=== PATIENT | male | born 1940 | race Caucasian/White ===

== ENCOUNTER 2017-11-29 20:17 | Inpatient (IN) | payer OTHER ==
[~2017-11-29] VITALS: Ht 182.9 cm; Wt 96.0 kg
[~2017-11-29 20:17] MED LIST: ACET-1256 PO; ALLO100T PO; ASCO500T16 PO; ASPECOTC PO; ATOR-22 PO; CARV3.122 PO; CO Q 10 PO; DIPH1TAB87 PO; FINA5TAB PO; GLUC1500 PO; LEVO150T PO; LOSA1TAB PO; MELATAB2 PO; METO25TA3 PO; MULT-506 PO; NTRGSL/4 UT; OMEG10007 PO; PRLSR20 PO; RIBO1TAB4 PO; TAMS0.4C38 PO; TRAZ50TA35 PO; VITA400C49 PO; VITAMIN D3 PO
[2017-11-29] MEDS ORDERED: SODIUM CHLORIDE 0.9% 1000ML 1,000 ML IV STA (20:50)
[2017-11-29] MEDS ORDERED: ONDANSETRON INJ 2 MG/ML 2 ML VIAL IV STA (20:50)
[2017-11-29] MEDS ORDERED: MoRPHine SULFATE 4 MG/ML 1 ML CARP\\VIAL IV PRN (21:00)
[2017-11-29 21:28] LABS: BASO % 0.5 %; BASO ABS # 0.05 K/uL (0-0.2); EOS % 1.1 %; EOS ABS # 0.12 K/uL (0-0.5); HEMATOCRIT 38.1 % (42-52); IG# 0.04 K/uL (0.00-0.02); LYMPH % 12.5 %; LYMPH ABS # 1.36 K/uL (1.2-3.4); MEAN CELL VOLUME 100.8 fL (80-100); MEAN CORPUSCULAR HEMOGLOBIN 34.4 pg (25-34); MEAN CORPUSCULAR HGB CONC 34.1 g/dl (32-36); MEAN PLATELET VOLUME 11.5 fL (7.4-10.4); MONO % 8.7 %; MONO ABS # 0.94 K/uL (0.11-0.59); NEUT % 76.8 %; NEUT ABS # 8.34 K/uL (1.4-6.5); PLATELET COUNT 253 K/uL (130-400); RED CELL DISTRIBUTION WIDTH CV 13.6 % (11.5-14.5); RED CELL DISTRIBUTION WIDTH SD 49.8 fL (36.4-46.3); WHITE BLOOD COUNT 10.85 K/uL (4.8-10.8)
[2017-11-29 21:57] LABS: ALBUMIN 3.1 gm/dl (3.4-5.0); ALKALINE PHOSPHATASE 59 U/L (45-117); ALT/SGPT 24 U/L (12-78); AST/SGOT 23 U/L (15-37); BLOOD UREA NITROGEN 22 mg/dl (7-18); CALCIUM 9.5 mg/dl (8.5-10.1); CARBON DIOXIDE 25 mmol/L (21-32); CREATININE 1.31 mg/dl (0.60-1.40); GLUCOSE 98 mg/dl (70-99); LIPASE 226 U/L (73-393); POTASSIUM 4.2 mmol/L (3.5-5.1); SODIUM 132 mmol/L (136-145); TOTAL PROTEIN 8.3 gm/dl (6.4-8.2)
--- NOTE | 2017-11-29 22:16 | DIAGNOSTIC IMAGING REPORT ---
CT OF THE ABDOMEN AND PELVIS WITHOUT CONTRAST, STONE PROTOCOL CLINICAL HISTORY: Severe abdominal pain. Back pain. Fever. Possible urinary tract infection. COMPARISON STUDY: CT of the abdomen and pelvis August 09, 2012. TECHNIQUE: Helical axial images of the abdomen and pelvis were obtained without IV or oral contrast according to renal stone protocol. A dose lowering technique was utilized adhering to the principles of ALARA. FINDINGS: The heart is moderately enlarged. Visualized portions of the lower chest demonstrate a large hiatal hernia which contains the majority of the stomach as well as a portion of the pancreas. A few right renal calculi measure up to 5 mm. A few left renal calculi are noted which measure up to 3 mm. Calcification within the upper pole of the left kidney is likely within a cystic lesion. There is mild bilateral hydroureter without hydronephrosis. No ureteral calculi are identified. Bladder is moderately distended. Calcifications along the anterior aspect of the bladder are unchanged. A suspected small bladder diverticulum is noted. There are multiple bilateral renal lesions which measure water attenuation. These favor cysts. A 3.6 cm lesion within the upper pole of the left kidney is indeterminate. This contains coarse peripheral calcifications. These lesions are suboptimally assessed on this unenhanced examination. A gallstone is noted within the gallbladder without evidence for acute cholecystitis by CT. Evaluation of the abdomen and pelvis is suboptimal on this unenhanced exam. Unenhanced images of the liver, spleen and adrenal glands are unremarkable. A moderate amount of stool is noted within the colon. There is no evidence for a bowel obstruction. No pneumatosis, free air or portal venous gas is present. The appendix is not visualized but there is no right lower quadrant inflammation. There is no lymphadenopathy. Fat-containing left inguinal hernia is noted. 3.6 cm infrarenal abdominal aortic aneurysm is noted without evidence for rupture. The bilateral common iliac arteries are mildly dilated. Multilevel degenerative changes within the lumbar spine are noted. There is no acute fracture. There is marked disc space narrowing at the L4-L5 level. Note is made of mild paravertebral edema at the L3-L4 and L4-L5 levels. IMPRESSION: 1. Bilateral nephrolithiasis. No ureteral calculi. Mild bilateral hydroureter which is likely related to moderate bladder distention. 2. Mild prevertebral infiltration at the L3-L4 and L4-L5 levels. No fracture identified. This finding is nonspecific. Differential considerations include an infectious process or acute degenerative process. An MRI of the lumbar spine could be obtained if clinical suspicion for an infectious process. 3. Moderate amount of stool within the colon. No evidence for a bowel obstruction. 4. 3.6 cm infrarenal abdominal aortic aneurysm. No rupture. 5. Large hiatal hernia. 6. Cholelithiasis. No evidence for acute cholecystitis. 7. 3.7 cm hypodense left renal lesion which contains coarse peripheral calcifications. Although indeterminate, this is unchanged since CT of August 07, 2012 and is probably benign Electronically signed by: Ivan Valladares M.D. 11/29/2017 10:15 PM Dictated Date/Time: 11/29/2017 9:55 PM
--- NOTE | 2017-11-29 23:20 | EMERGENCY ROOM VISIT NOTE ---
History Report prepared by Irene: Brian Martinez Under the Supervision of: Dr. Jose C Hardin D.O. First contact with patient: 20:28 Chief Complaint: URINARY SYMPTOMS Stated Complaint: BACK PAIN,POSSIBLE UTI,FEVER History of Present Illness The patient is a 77 year old male who presents to the Emergency Room with complaints of worsening low back pain beginning on November 20. The patient notes that the pain is shooting into his leg, and the pain is worsened greatly with sitting up. The patient's reports that at 18:00 today, she thought the patient felt hot and was found to have a subjective fever of 101, for which the patient did not receive any medications. They were instructed by the patient 's urologist to report to the ER. He also states that he was prescribed Tramadol yesterday by Dr. Canseco. He notes that the medication is not helping, and his pain is only worsening. He states that the last Tramadol he took was today at 17:00. The patient also reports that he feels the need to urinate, noting that he does self-catheterization due to "not having muscles" in his bladder. He notes that he has been taking gabapentin for the past couple of days , but is waning off of it. The patient reports that he received an MRI of his lower back yesterday that showed degenerative disc problems. He notes that he has not fallen recently. The following are findings from the patient's MRI of the lumbar spine acquired yesterday: L4-5: Diffuse disc bulging, bilateral facet arthropathy/hypertrophy, and ligamentum flavum thickening are causing moderate left and mild to moderate right neural foraminal narrowing and minimal spinal canal stenosis. Source of History: patient Onset: November 20 Position: back (lower), leg Timing: worsening Modifying Factors (Worsening): other (sitting up) Associated Symptoms: + fevers, + urinary symptoms (feels the need to urinate ) Review of Systems See HPI for pertinent positives & negatives. A total of 10 systems reviewed and were otherwise negative. Past Medical & Surgical Medical Problems: (1) coronary artery disease s/p CABG (2) esophagectomy s/p cancer Family History Diabetes mellitus Social History Smoking Status: Never Smoker Drug Use: none Marital Status: Housing Status: lives with family Occupation Status: retired Current/Historical Medications Scheduled Allopurinol (Zyloprim), 100 MG PO BID Ascorbic Acid (Ascorbic Acid), 500 MG PO BID Aspirin (Aspirin), 325 MG PO QAM Atorvastatin (Lipitor), 20 MG PO QAM Carvedilol (Coreg), 3.125 MG PO BID Cholecalciferol (Vitamin D3), 2 TABS PO DAILY Ciprofloxacin Tab (Cipro), 500 MG PO BID Coenzyme Q10 (Ubidecarenone) (Co Q10), 60 MG PO DAILY Finasteride (Proscar), 5 MG PO QAM Fish Oil (Kimper-3), 1 CAP PO BID Ugibtacotoc-Jxggptgrhwk-Cxy C- (Glucosamine Chondroitin 1), 2 CAPSULE PO QAM Levothyroxine Sodium (Levothyroxine Sodium), 175 MCG PO DAILY Losartan Potassium (Cozaar), 25 MG PO QAM Melatonin (Melatonin Maximum Strengt), 1 TAB PO HS Metoprolol Succ (Toprol Xl) (Toprol-Xl), 25 MG PO QAM Multivitamin (Multivitamin), 1 TAB PO QAM Omeprazole (Prilosec), 40 MG PO QAM Riboflavin (Riboflavin), 1 CAP PO QAM Tamsulosin Hcl (Flomax), 0.4 MG PO QAM Trazodone Hcl (Trazodone), 50 MG PO HS Vitamin E (Vitamin E), 1 CAP PO UD Scheduled PRN Acetaminophen (Tylenol), 1,000 MG PO Q8 PRN for Pain Baclofen (Lioresal), 10 MG PO BID PRN for muscle spasms Diphenhydramine Hcl (Benadryl Allergy), 2 TABS PO UD PRN for Itching Nitroglycerin (Nitrostat), 0.4 MG UT PRN PRN for Chest Pain Allergies Uncoded Allergies: NKDA (Allergy, Unknown, N/A, 10/25/17) Physical Exam Vital Signs Date Time Temp Pulse Resp B/P (MAP) Pulse Ox O2 Delivery O2 Flow Rate FiO2 11/29/17 23:41 79 20 130/62 92 Room Air 11/29/17 22:21 73 20 138/53 94 Room Air 11/29/17 20:19 36.7 88 18 142/69 100 Room Air Physical Exam CONSTITUTIONAL/VITAL SIGNS: Reviewed / noted above. GENERAL: Non-toxic in appearance. INTEGUMENTARY: Warm, dry, and [place]. HEAD: Normocephalic. EYES: without scleral icterus or trauma. ENT/OROPHARYNX: clear and moist. LYMPHADENOPATHY/NECK: Is supple without lymphadenopathy or meningismus. RESPIRATORY: Lungs clear and equal. CARDIOVASCULAR: Regular rate and rhythm. GI/ABDOMEN: Soft and nontender. No organomegaly or pulsatile mass. No rebound or guarding. Normal bowel sounds. EXTREMITIES: Warm and well perfused. BACK: No CVA tenderness. Pain with attempts to sit up. NEUROLOGICAL: Intact without focal deficits. PSYCHIATRIC: normal affect. MUSCULOSKELETAL: Normally developed with good muscle tone. Medical Decision & Procedures ER Provider Diagnostic Interpretation: Radiology results as stated below per my review and radiologist interpretation: CT OF THE ABDOMEN AND PELVIS WITHOUT CONTRAST, STONE PROTOCOL CLINICAL HISTORY: Severe abdominal pain. Back pain. Fever. Possible urinary tract infection. COMPARISON STUDY: CT of the abdomen and pelvis August 09, 2012. TECHNIQUE: Helical axial images of the abdomen and pelvis were obtained without IV or oral contrast according to renal stone protocol. A dose lowering technique was utilized adhering to the principles of ALARA. FINDINGS: The heart is moderately enlarged. Visualized portions of the lower chest demonstrate a large hiatal hernia which contains the majority of the stomach as well as a portion of the pancreas. A few right renal calculi measure up to 5 mm. A few left renal calculi are noted which measure up to 3 mm. Calcification within the upper pole of the left kidney is likely within a cystic lesion. There is mild bilateral hydroureter without hydronephrosis. No ureteral calculi are identified. Bladder is moderately distended. Calcifications along the anterior aspect of the bladder are unchanged. A suspected small bladder diverticulum is noted. There are multiple bilateral renal lesions which measure water attenuation. These favor cysts. A 3.6 cm lesion within the upper pole of the left kidney is indeterminate. This contains coarse peripheral calcifications. These lesions are suboptimally assessed on this unenhanced examination. A gallstone is noted within the gallbladder without evidence for acute cholecystitis by CT. Evaluation of the abdomen and pelvis is suboptimal on this unenhanced exam. Unenhanced images of the liver, spleen and adrenal glands are unremarkable. A moderate amount of stool is noted within the colon. There is no evidence for a bowel obstruction. No pneumatosis, free air or portal venous gas is present. The appendix is not visualized but there is no right lower quadrant inflammation. There is no lymphadenopathy. Fat-containing left inguinal hernia is noted. 3.6 cm infrarenal abdominal aortic aneurysm is noted without evidence for rupture. The bilateral common iliac arteries are mildly dilated. Multilevel degenerative changes within the lumbar spine are noted. There is no acute fracture. There is marked disc space narrowing at the L4-L5 level. Note is made of mild paravertebral edema at the L3-L4 and L4-L5 levels. IMPRESSION: 1. Bilateral nephrolithiasis. No ureteral calculi. Mild bilateral hydroureter which is likely related to moderate bladder distention. 2. Mild prevertebral infiltration at the L3-L4 and L4-L5 levels. No fracture identified. This finding is nonspecific. Differential considerations include an infectious process or acute degenerative process. An MRI of the lumbar spine could be obtained if clinical suspicion for an infectious process. 3. Moderate amount of stool within the colon. No evidence for a bowel obstruction. 4. 3.6 cm infrarenal abdominal aortic aneurysm. No rupture. 5. Large hiatal hernia. 6. Cholelithiasis. No evidence for acute cholecystitis. 7. 3.7 cm hypodense left renal lesion which contains coarse peripheral calcifications. Although indeterminate, this is unchanged since CT of August 07, 2012 and is probably benign Electronically signed by: Ivan Valladares M.D. 11/29/2017 10:15 PM Dictated Date/Time: 11/29/2017 9:55 PM Laboratory Results 11/29/17 21:10 Red Blood Count 3.78, Mean Corpuscular Volume 100.8, Mean Corpuscular Hemoglobin 34.4, Mean Corpuscular Hemoglobin Concent 34.1, Mean Platelet Volume 11.5, Neutrophils (%) (Auto) 76.8, Lymphocytes (%) (Auto) 12.5, Monocytes (%) ( Auto) 8.7, Eosinophils (%) (Auto) 1.1, Basophils (%) (Auto) 0.5, Neutrophils # ( Auto) 8.34, Lymphocytes # (Auto) 1.36, Monocytes # (Auto) 0.94, Eosinophils # ( Auto) 0.12, Basophils # (Auto) 0.05 11/29/17 21:10 Test 11/29/17 21:10 11/29/17 22:20 White Blood Count 10.85 K/uL (4.8-10.8) Red Blood Count 3.78 M/uL (4.7-6.1) Hemoglobin 13.0 g/dL (14.0-18.0) Hematocrit 38.1 % (42-52) Mean Corpuscular Volume 100.8 fL (80-100) Mean Corpuscular Hemoglobin 34.4 pg (25-34) Mean Corpuscular Hemoglobin Concent 34.1 g/dl (32-36) Platelet Count 253 K/uL (130-400) Mean Platelet Volume 11.5 fL (7.4-10.4) Neutrophils (%) (Auto) 76.8 % Lymphocytes (%) (Auto) 12.5 % Monocytes (%) (Auto) 8.7 % Eosinophils (%) (Auto) 1.1 % Basophils (%) (Auto) 0.5 % Neutrophils # (Auto) 8.34 K/uL (1.4-6.5) Lymphocytes # (Auto) 1.36 K/uL (1.2-3.4) Monocytes # (Auto) 0.94 K/uL (0.11-0.59) Eosinophils # (Auto) 0.12 K/uL (0-0.5) Basophils # (Auto) 0.05 K/uL (0-0.2) RDW Standard Deviation 49.8 fL (36.4-46.3) RDW Coefficient of Variation 13.6 % (11.5-14.5) Immature Granulocyte % (Auto) 0.4 % Immature Granulocyte # (Auto) 0.04 K/uL (0.00-0.02) Anion Gap 10.0 mmol/L (3-11) Estimated GFR () 60.9 Estimated GFR (Non- 52.5 BUN/Creatinine Ratio 16.4 (10-20) Calcium Level 9.5 mg/dl (8.5-10.1) Total Bilirubin 0.7 mg/dl (0.2-1) Direct Bilirubin 0.3 mg/dl (0-0.2) Aspartate Amino Transf (AST/SGOT) 23 U/L (15-37) Alanine Aminotransferase (ALT/SGPT) 24 U/L (12-78) Alkaline Phosphatase 59 U/L (45-117) Total Protein 8.3 gm/dl (6.4-8.2) Albumin 3.1 gm/dl (3.4-5.0) Lipase 226 U/L (73-393) Urine Color DK YELLOW Urine Appearance CLEAR (CLEAR) Urine pH 5.5 (4.5-7.5) Urine Specific [place] 1.013 (1.000-1.030) Urine Protein 1+ (NEG) Urine Glucose (UA) NEG (NEG) Urine Ketones NEG (NEG) Urine Occult Blood NEG (NEG) Urine Nitrite NEG (NEG) Urine Bilirubin NEG (NEG) Urine Urobilinogen NEG (NEG) Urine Leukocyte Esterase TRACE (NEG) Urine WBC (Auto) 5-10 /hpf (0-5) Urine RBC (Auto) 0-4 /hpf (0-4) Urine Hyaline Casts (Auto) 0 /lpf (0-5) Urine Epithelial Cells (Auto) 0-5 /lpf (0-5) Urine Bacteria (Auto) NEG (NEG) Laboratory results as stated above per my review. Medications Administered Medications (Trade) Dose Ordered Sig/Fidel Route Start Time Stop Time Status Last Admin Dose Admin Sodium Chloride 1,000 ml @ 999 mls/hr Q1H1M STAT IV 11/29/17 20:50 11/29/17 21:50 DC 11/29/17 21:30 999 MLS/HR Ondansetron HCl (Zofran Inj) 4 mg NOW STAT IV 11/29/17 20:50 11/29/17 20:56 DC 11/29/17 21:33 4 MG Morphine Sulfate (MoRPHine SULFATE INJ) 4 mg Q15M PRN IV 11/29/17 21:00 12/13/17 20:59 11/29/17 21:33 4 MG ED Course 2044: Previous medical records were reviewed. The patient was evaluated in room C6. A complete history and physical examination was performed. 0: Ordered Zofran 4 mg IV, Sodium Chloride 1000 ml @ 999 mls/hr IV 2100: Ordered Morphine Sulfate 4 mg IV 2315: On reevaluation, the patient is resting. I discussed the results and findings with the patient. He verbalized agreement of the treatment plan. He is ready for discharge. 2345: The patient is experiencing a lot of pain, and he and his are uncomfortable with leaving at this time. 0013: I consulted Dr. Erickson Huerta Hospitalist. He will reevaluate the patient for hospitalization. Medical Decision Differential considered: pancreatitis, hepatitis, or acute cholecystitis, AAA, UTI, pyelonephritis, kidney stones, appendicitis, diverticulitis, shingles, bowel obstruction mesenteric ischemia, intussusception,hernia, testicular torsion. This is a 77-year-old male who presents to the ED with a chief complaint of urinary symptoms and back pain. The patient was seen by the PCP yesterday and was started on Ultram for his back pain. He had an MRI of his back that revealed some mild herniations and degenerative changes. There is no significant stenosis or herniations. The patient is also on gabapentin but they are weaning him off of this. Further details noted above. The patient does self-catheterization at home because he has some issues with bladder muscles. In the reportedly had a fever today of 101, per his . His vital signs here are normal. He is afebrile. His exam revealed some increased discomfort with attempting to sit up but otherwise no significant abnormalities on exam. He is normal reflexes in the lower extremities. His CBC is unremarkable as is his complete metabolic panel. CT scan of the abdomen pelvis reveals mild hydroureter felt to be related to some moderate bladder distention. A bladder scan revealed almost 700 cc of urine in the bladder. Urine did not show infection today. Additional findings on the CT scan revealed some infiltration in the anterior vertebral region but I spoke with the radiologist, Dr. Valladares, who did not feel an MRI was needed since the patient had one yesterday. I did speak to the patient about the results of the test. He was advised to call Dr. Canseco tomorrow with regards to his additional symptoms. He was treated with IV morphine, IV fluids and IV Zofran. This did help with the symptoms and he also had his bladder drained via catheterization. The patient was felt to be stable for discharge, however as he was attempting leave, the patient was having too much pain and did not feel comfortable leaving. The also felt uncomfortable with the patient going with his much pain as he was having. [facility] will see the patient for additional evaluation of pain management. Medication Reconcilliation Current Medication List: was personally reviewed by me Blood Pressure Screening Patient's blood pressure: Elevated blood pressure Blood pressure disposition: Elevated BP felt to be situational Consults Time Called: [id number] Consulting Physician: Dr. Erickson Trent Returned Call: [id number] Oconer [facility]. He will reevaluate the patient for hospitalization. Impression Primary Impression: Bladder distention Additional Impression: Back pain Scribe Attestation The scribe's documentation has been prepared under my direction and personally reviewed by me in its entirety. I confirm that the note above accurately reflects all work, treatment, procedures, and medical decision making performed by me. Departure Information Dispostion Being Evaluated By Hospitalist Referrals Yanick Canseco D.O. (PCP) Patient Instructions My [facility] Additional Instructions Talk to your doctor tomorrow about her symptoms. Let him know that you were here tonight so he can review the results of your test. Continue the Ultram prescribed yesterday. Follow-up with your doctor for further care and evaluation in 1-3 days. Return to the emergency department for worsening or new symptoms or any concerns. You have been examined and treated today on an emergency basis only. This is not a substitute for, or an effort to provide, complete comprehensive medical care. It is impossible to recognize and treat all injuries or illnesses in a single emergency department visit. It is therefore important that you follow up closely with your doctor. Call as soon as possible for an appointment. Problem Qualifiers
[2017-11-30] MEDS ORDERED: CHOL20007 PO (00:17)
[2017-11-30] MEDS ORDERED: COEN1CAP PO (00:19)
[2017-11-30] MEDS ORDERED: LEVO175T3 PO (00:24)
[2017-11-30] MEDS ORDERED: BACL10TA PO (00:26)
[2017-11-30] MEDS ORDERED: CIPR1TAB11 PO (00:27)
[2017-11-30] MEDS ORDERED: KETOROLAC TROMETHAMINE 30 MG/ML VIAL IV STA (01:18)
[2017-11-30] MEDS ORDERED: PIPERACILLIN/TAZOBACTAM 4.5 GM/100ML D5W IV STA (01:20)
[2017-11-30] MEDS ORDERED: KETOROLAC TROMETHAMINE 15 MG/ML VIAL ONE (01:28)
[2017-11-30] MEDS ORDERED: PIPERACILLIN/TAZOBACTAM 4.5 GM/100ML D5W ONE (01:29)
[2017-11-30] MEDS ORDERED: MoRPHine SULFATE 2 MG/ML CARP IV PRN (01:45)
[2017-11-30] MEDS ORDERED: ACETAMINOPHEN 325 MG TAB PO PRN (01:45)
[2017-11-30 02:00] VITALS: BP 112/53; PULSE 63; TEMP 37.1; O2SAT 93; Ht 182.9 cm; Wt 96.0 kg
[2017-11-30] MEDS ORDERED: NITROGLYCERIN 0.4 MG SL PER TAB CHARGE UT PRN (02:00)
[2017-11-30] MEDS ORDERED: LIDODERM (LIDOCAINE) PATCH 5% TD ONE (03:00)
[2017-11-30] MEDS ORDERED: DOCUSATE SODIUM 100 MG CAP PO ONE (03:00)
[2017-11-30] MEDS ORDERED: LORATADINE 10 MG TAB PO ONE (03:45)
[2017-11-30] MEDS: TRAMADOL HCL 50 MG TAB PO PRN ×2 (04:15→19:14)
--- NOTE | 2017-11-30 04:56 | HISTORY & PHYSICAL EXAMINATION ---
DATE OF ADMISSION: 11/30/2017 CHIEF COMPLAINT: Back pain. HISTORY OF PRESENT ILLNESS: History obtained by the patient, , and records. Medical history is significant for CAD status post CABG, PVD, hypertension, hypothyroidism, past tobacco abuse, esophageal cancer status post surgery, PVD, history of BPH, urinary retention (intermittent self straight catheterization at home), chronic hyponatremia. A week history of achy low back pain radiating to the left lower extremity, shooting. No recollection of recent trauma. Patient saw his PCP few days ago. Left leg weakness noted on exam. As per records, tramadol started. MRI spine without contrast ordered, no acute abnormalities identified. Multilevel, multifactorial degenerative changes, mildly progressed from 01/2009. Neural foraminal narrowing, significant moderate left L4-L5 foraminal narrowing; heterogeneous appearance of bone marrow signal with edematous changes in the endplates at several levels, likely related to degenerative disc disease, small osseous metastatic lesions cannot be excluded;infrarenal aorta dilatation noted. Worsening back pain pain noted. Low-grade fever at home, T 101. No cough, no chest pain no shortness of breath. No bladder discomfort. Intractable back pain at the ER. MEDICAL HISTORY: As above. Sees [facility] for BPH with urinary retention. Last visit was 03/2017, Finasteride prescription, return after 6 months for follow-up as per note. If PVR does not improve, consider cystoscopy. Patient doing intermittent straight catheterization. Urine cultures 10/2017 showed enterococcus. ? Cipro prescribed. SURGERIES: urologic procedure, CABG, carpal tunnel surgery, hernia repair, esophagectomy, TURP. HOME MEDICATIONS: Include glucosamine, Synthroid, Cozaar, melatonin, Toprol, multivitamins, Nitrostat, Prilosec , Flomax, trazodone, vitamin E, vitamin D3, Coenzyme Q, Benadryl, Proscar, fish oil, Zyloprim, ascorbic acid, aspirin once daily, Lipitor, Tylenol, Coreg. ALLERGIES: No known drug allergies. FAMILY HISTORY: Hypertension. PERSONAL AND SOCIAL HISTORY: Past tobacco abuse. No chronic intake of alcoholic beverages. 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 REVIEW OF SYSTEMS: As per HPI, all 10 systems reviewed. All other ROS negative. PHYSICAL EXAMINATION: VITAL SIGNS: Blood pressure noted to be 138/50, pulse rate 70, RR 20, temperature 37, sats 94 on room air. GENERAL: Noted to be uncomfortable, no respiratory distress. SKIN: Pallor, warm. HEENT: Partial alopecia, pale palpebral conjunctivae. No ptosis. Dry mucosa. NECK: Short, supple. CHEST: Decreased effort. No tenderness. HEART: Regular rate and rhythm, no murmur. ABDOMEN: Abdominal distention noted. Healed scars, nontender. RECTAL: Intact sphincter, yellow stool, heme negative. bottle blowing machine tender low back with positive straight leg raise on the left. NEUROLOGIC: Coherent. No gross focality except for back exam. LABORATORY DATA: Hemoglobin is 13, white cell count 10, platelets 253. Sodium noted to be 130, chloride 96, CO2 is 25, BUN 20, creatinine 1, glucose was noted to be 98. UA, trace wbc est positive. CT abdomen and pelvis showed bilateral nephrolithiasis, no calculi, mild bilateral hydroureter related to moderate bladder distention, mild prevertebral swelling at L3-L4 and L4-L5 levels infection versus acute degeneration, moderate amount of stool, 3.6 cm infrarenal abdominal aortic aneurysm without rupture, cholelithiasis, hypodense L renal lesion. ASSESSMENT: 1. Back pain multifactorial : sciatica (abnormal outpx MRI - "heterogeneous bone marrow signal") complicated urinary tract infection, no sepsis (history of benign prostatic hypertrophy with urinary retention intermittent straight cath at home, Enterococcus on recent outpatient urine CS 10/2017 ? sp Cipro rx) 2. Coronary artery disease, status post coronary artery bypass grafting. 3. hx PVD 4. Esophageal cancer sp postsurgery 5. hypertension, stable. 6. Acute onset anemia, no occult gastrointestinal bleed. 7. Past tobacco abuse . PLAN: GMF analgesia Lidoderm patch trial urine cultures, IV Zosyn. Orthopedic spine consult RE back pain, abnormal MRI (? benefit in doing contrast MRI) anemia workup. PT OT eval DVT prophylaxis, Lovenox subQ. Full code. MTDD
[2017-11-30] MEDS: LEVOTHYROXINE 175 MCG TAB PO SCH (05:56)
[2017-11-30] MEDS: PIPERACILL/TAZOBAC IV 3.375 GM in D5W 100ML IV SCH ×3 (05:56→21:35)
[2017-11-30 05:57] LABS: BASO % 0.4 %; BASO ABS # 0.05 K/uL (0-0.2); EOS % 0.9 %; HEMATOCRIT 35.1 % (42-52); HEMOGLOBIN 11.8 g/dL (14.0-18.0); IG# 0.05 K/uL (0.00-0.02); LYMPH % 10.8 %; LYMPH ABS # 1.27 K/uL (1.2-3.4); MEAN CELL VOLUME 100.9 fL (80-100); MEAN CORPUSCULAR HEMOGLOBIN 33.9 pg (25-34); MEAN CORPUSCULAR HGB CONC 33.6 g/dl (32-36); MEAN PLATELET VOLUME 11.5 fL (7.4-10.4); MONO % 10.8 %; MONO ABS # 1.26 K/uL (0.11-0.59); NEUT % 76.7 %; NEUT ABS # 8.99 K/uL (1.4-6.5); PLATELET COUNT 233 K/uL (130-400); RED CELL DISTRIBUTION WIDTH CV 13.7 % (11.5-14.5); RETIC COUNT % 1.1 % (0.5-2.0); WHITE BLOOD COUNT 11.72 K/uL (4.8-10.8)
[2017-11-30 06:29] LABS: CALCIUM 8.2 mg/dl (8.5-10.1); CREATININE 1.32 mg/dl (0.60-1.40); POTASSIUM 4.3 mmol/L (3.5-5.1)
[2017-11-30 06:38] LABS: INR 1.1 (0.9-1.1)
[2017-11-30 07:31] VITALS: BP 115/56; PULSE 56; TEMP 36.4; O2SAT 95
[2017-11-30] MEDS: KETOROLAC TROMETHAMINE 15 MG/ML VIAL IV. PRN ×2 (07:33→17:41)
[2017-11-30] MEDS ORDERED: PIPERACILL/TAZOBAC CONSULT ACTIVE PRN (08:00)
[2017-11-30] MEDS: CARVEDILOL 3.125 MG TAB PO SCH ×2 (08:00→20:19)
[2017-11-30] MEDS: LOSARTAN POTASSIUM 25 MG TAB PO SCH (08:58)
[2017-11-30] MEDS: ASPIRIN 81 MG ECTAB PO SCH (08:59)
[2017-11-30] MEDS: ATORVASTATIN 20 MG TAB PO SCH (08:59)
[2017-11-30] MEDS: FINASTERIDE 5 MG TAB PO SCH (08:59)
[2017-11-30] MEDS: MULTIVITAMIN TAB PO SCH (08:59)
[2017-11-30] MEDS: TAMSULOSIN HCL 0.4 MG CAP PO SCH (08:59)
[2017-11-30] MEDS: PANTOprazole SOD 40 MG TAB PO SCH (08:59)
[2017-11-30] MEDS ORDERED: OXYCODONE HCL IR 5 MG TAB (IMMEDIATE RELEASE) PO ONE (09:00)
[2017-11-30] MEDS: ALLOPURINOL 100 MG TAB PO SCH ×2 (09:00→20:20)
[2017-11-30] MEDS: METOPROLOL SUCC 25MG EXT REL TAB PO SCH (09:05)
--- NOTE | 2017-11-30 10:26 | Progress Note ---
Progress Note Date of Service Nov 30, 2017. Progress Note chart reviewed. recommend consult spine service
[2017-11-30] MEDS ORDERED: BACLOFEN 10 MG TAB PO ONE (11:50)
[2017-11-30] MEDS: ENOXAPARIN 40 MG/0.4 ML SYR SQ SCH (11:50)
--- NOTE | 2017-11-30 11:51 | Progress Note ---
Medicine Progress Note Date & Time of Visit: Nov 30, 2017 at 11:31. Subjective Pt was seen and examined Lying in bed and complaint severe of back pain Pt said that the pain med does not seem to help much He said that the pain is located in his left side of his lower back and shooting to his left leg He said that pain is worst if he tries to move or elevate his left leg Denies any chest pain, palpitation, dizziness and SOB Objective Last 8 Hrs Date Time Temp Pulse Resp B/P (MAP) Pulse Ox O2 Delivery O2 Flow Rate FiO2 11/30/17 10:53 Room Air 11/30/17 07:31 36.4 56 18 115/56 (75) 95 Room Air Physical Exam: General- No acute distress Head- atraumatic Eyes- PERRL, EOMI ENT- oropharynx clear Neck- supple, no JVD Lungs- No acute distress Heart- regular rhythm; no murmur, Abdomen- normal bowel sounds, soft Extremities- no calf tenderness Neuro- alert, oriented x 3; PERRL, EOMI Skin- warm & dry Laboratory Results: Last 24 Hours Test 11/29/17 21:10 11/29/17 22:20 11/30/17 05:23 White Blood Count 10.85 K/uL 11.72 K/uL Red Blood Count 3.78 M/uL 3.48 M/uL Hemoglobin 13.0 g/dL 11.8 g/dL Hematocrit 38.1 % 35.1 % Mean Corpuscular Volume 100.8 fL 100.9 fL Mean Corpuscular Hemoglobin 34.4 pg 33.9 pg Mean Corpuscular Hemoglobin Concent 34.1 g/dl 33.6 g/dl Platelet Count 253 K/uL 233 K/uL Mean Platelet Volume 11.5 fL 11.5 fL Neutrophils (%) (Auto) 76.8 % 76.7 % Lymphocytes (%) (Auto) 12.5 % 10.8 % Monocytes (%) (Auto) 8.7 % 10.8 % Eosinophils (%) (Auto) 1.1 % 0.9 % Basophils (%) (Auto) 0.5 % 0.4 % Neutrophils # (Auto) 8.34 K/uL 8.99 K/uL Lymphocytes # (Auto) 1.36 K/uL 1.27 K/uL Monocytes # (Auto) 0.94 K/uL 1.26 K/uL Eosinophils # (Auto) 0.12 K/uL 0.10 K/uL Basophils # (Auto) 0.05 K/uL 0.05 K/uL RDW Standard Deviation 49.8 fL 50.0 fL RDW Coefficient of Variation 13.6 % 13.7 % Immature Granulocyte % (Auto) 0.4 % 0.4 % Immature Granulocyte # (Auto) 0.04 K/uL 0.05 K/uL Prothrombin Time 11.6 SECONDS Prothromb Time International Ratio 1.1 Sodium Level 132 mmol/L 131 mmol/L Potassium Level 4.2 mmol/L 4.3 mmol/L Chloride Level 96 mmol/L 99 mmol/L Carbon Dioxide Level 25 mmol/L 25 mmol/L Anion Gap 10.0 mmol/L 7.0 mmol/L Blood Urea Nitrogen 22 mg/dl 22 mg/dl Creatinine 1.31 mg/dl 1.32 mg/dl Estimated GFR () 60.9 60.3 Estimated GFR (Non- 52.5 52.0 BUN/Creatinine Ratio 16.4 16.7 Random Glucose 98 mg/dl 95 mg/dl Calcium Level 9.5 mg/dl 8.2 mg/dl Magnesium Level 1.8 mg/dl Total Bilirubin 0.7 mg/dl Direct Bilirubin 0.3 mg/dl Aspartate Amino Transf (AST/SGOT) 23 U/L Alanine Aminotransferase (ALT/SGPT) 24 U/L Alkaline Phosphatase 59 U/L Total Protein 8.3 gm/dl Albumin 3.1 gm/dl Lipase 226 U/L Thyroid Stimulating Hormone (TSH) 1.950 uIu/ml Urine Color DK YELLOW Urine Appearance CLEAR Urine pH 5.5 Urine Specific [place] 1.013 Urine Protein 1+ Urine Glucose (UA) NEG Urine Ketones NEG Urine Occult Blood NEG Urine Nitrite NEG Urine Bilirubin NEG Urine Urobilinogen NEG Urine Leukocyte Esterase TRACE Urine WBC (Auto) 5-10 /hpf Urine RBC (Auto) 0-4 /hpf Urine Hyaline Casts (Auto) 0 /lpf Urine Epithelial Cells (Auto) 0-5 /lpf Urine Bacteria (Auto) NEG Absolute Reticulocyte Count 0.04 10^6/uL Percent Reticulocyte Count 1.1 % Est Creatinine Clear Calc Drug Dose 57.3 ml/min Iron Level 14 mcg/dl Total Iron Binding Capacity 181 mcg/dl Transferrin 141 mg/dl Transferrin % Saturation 7 % Ferritin 303.1 ng/ml Vitamin B12 Level 1157 pg/mL Folate 21.02 ng/mL Date/Time Source Procedure Growth Status 11/29/17 22:40 Urine , Clean Catch Urine Culture Pending Received Assessment & Plan Left Sided Lower Back Pain radiated to Left Lower Ext Might be related to sciatica? Outpt MRI showed on 12/02 no acute abnormalities identified. 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 No significant spinal canal stenosis at any level. Heterogeneous appearance of bone marrow signal with edematous changes in the endplates at several levels Received IV morphine and oxy with no relief sciatica Will increase oxycodone to 10mg Continue IV morphine Orthopedic consult PT/OT once pain alleviates Fall precaution MRI report 1. No acute abnormalities identified. 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 No significant spinal canal stenosis at any level. 2. Neural foraminal narrowing of different degree at several levels, most significant, moderate, in the left L4-5 foramen. 3. Heterogeneous appearance of bone marrow signal with edematous changes in the endplates at several levels is more likely related to degenerative disc disease. Please note that presence of small osseous metastatic lesions cannot be excluded based on this examination alone in this patient with known prior history of cancer. 4. Mild aneurysmal dilatation of the infrarenal aorta, which measures up to 3.4 cm in diameter (3.1 cm in 2008). Abnormal UA Afebrile Elevated WBC Urine cx pending Continue IV zosyn for now Hyponatremia Na 131 Received NS Monitor BMP BPH Continue flomax and proscar Stable CAD S/P coronary artery bypass grafting. Denies any chest pain Stable Esophageal cancer S/P postsurgery Stable Hypertension BP stable. Anemia Hbg dropped to 11 today No signs of active bleeding Monitor CBC DVT px Lovenox Code status Full code Current Inpatient Medications: Current Inpatient Medications Medications (Trade) Dose Ordered Sig/Fidel Route Start Time Stop Time Status Last Admin Dose Admin Lidocaine (Lidoderm Patch 5%) 1 patch QAM TD 12/01/17 08:00 12/31/17 08:59 Miscellaneous (Remove Lidoderm Patch) 1 ea DAILY@1999 N/A 11/30/17 15:00 12/30/17 14:59 Enoxaparin Sodium (Lovenox Inj) 40 mg Q24H SQ 11/30/17 08:00 12/30/17 07:59 Acetaminophen (Tylenol Tab) 650 mg Q4H PRN PO 11/30/17 01:45 12/30/17 01:44 Prochlorperazine Edisylate 5 mg/ Syringe 5 ml @ 5 mls/min Q6H PRN IV 11/30/17 01:45 12/30/17 01:44 Morphine Sulfate (MoRPHine SULFATE INJ) 2 mg Q4H PRN IV 11/30/17 01:45 12/14/17 01:44 11/30/17 02:50 2 MG Allopurinol (Zyloprim Tab) 100 mg BID PO 11/30/17 08:00 12/30/17 08:59 11/30/17 09:00 100 MG Aspirin (Ecotrin Tab) 162 mg QAM PO 11/30/17 08:00 12/30/17 08:59 11/30/17 08:59 162 MG Atorvastatin Calcium (Lipitor Tab) 20 mg QAM PO 11/30/17 08:00 12/30/17 08:59 11/30/17 08:59 20 MG Carvedilol (Coreg Tab) 3.125 mg BID PO 11/30/17 08:00 12/30/17 08:59 Finasteride (Proscar Tab) 5 mg QAM PO 11/30/17 08:00 12/30/17 08:59 11/30/17 08:59 5 MG Levothyroxine Sodium (Synthroid Tab) 175 mcg DAILYBB PO 11/30/17 06:30 12/30/17 06:29 11/30/17 05:56 175 MCG Losartan Potassium (coZAAR TAB) 25 mg QAM PO 11/30/17 08:00 12/30/17 08:59 11/30/17 08:58 25 MG Metoprolol Succinate (Toprol Xl Tab) 25 mg QAM PO 11/30/17 08:00 12/30/17 08:59 Multivitamins (Multivitamin Tab) 1 tab QAM PO 11/30/17 08:00 12/30/17 08:59 11/30/17 08:59 1 TAB Nitroglycerin (Nitrostat Tab) 0.4 mg PRN PRN UT 11/30/17 02:00 12/30/17 01:59 Tamsulosin HCl (Flomax Cap) 0.4 mg QAM PO 11/30/17 08:00 12/30/17 08:59 11/30/17 08:59 0.4 MG Trazodone HCl (Desyrel Tab) 50 mg HS PO 11/30/17 21:00 12/30/17 20:59 Pantoprazole Sodium (Protonix Tab) 40 mg QAM PO 11/30/17 08:00 12/30/17 08:59 11/30/17 08:59 40 MG Miscellaneous Information (Consult) 1 ea UD PRN N/A 11/30/17 08:00 12/30/17 07:59 Tramadol HCl (Ultram Tab) not relieved ... Q6H PRN PO 11/30/17 02:00 12/30/17 01:59 11/30/17 04:15 50 MG Docusate Sodium (coLACE CAP) 100 mg DAILY PO 12/01/17 08:00 12/31/17 07:59 Ketorolac Tromethamine (Toradol Inj) 15 mg Q6H PRN IV. 11/30/17 02:45 12/05/17 02:44 11/30/17 07:33 15 MG Piperacillin Sod/ Tazobactam Sod 3.375 gm/Dextrose 115 ml @ 28.75 mls/ hr Q8H IV 11/30/17 06:00 12/10/17 05:59 11/30/17 05:56 28.75 MLS/HR
[2017-11-30] MEDS ORDERED: ACETAMINOPHEN IV 1,000 MG in EMPTY BAG 0 ML IV ONE (13:00)
[2017-11-30] MEDS: DiphenhydrAMINE HCL 12.5MG/5 ML UDC PO PRN (13:16)
[2017-11-30] MEDS ORDERED: OXYCODONE HCL IR 5 MG TAB (IMMEDIATE RELEASE) PO PRN (14:00)
[2017-11-30 14:31] VITALS: BP 101/58; PULSE 69; TEMP 36.6; O2SAT 95
[2017-11-30] MEDS ORDERED: NURSING VERBAL MED ORDER ONE ×2 (15:15→19:00)
[2017-11-30] MEDS ORDERED: DiphenhydrAMINE HCL 12.5MG/5 ML UDC PO ONE (19:15)
[2017-11-30 20:05] VITALS: BP 108/56; PULSE 64
[2017-11-30] MEDS: BACLOFEN 10 MG TAB PO SCH (20:20)
[2017-11-30] MEDS: TRAZODONE HCL 50 MG TAB PO SCH (20:21)
[2017-11-30 23:05] VITALS: BP 106/54; PULSE 73; TEMP 36.9; O2SAT 94
[2017-12-01 05:42] LABS: BASO % 0.2 %; BASO ABS # 0.03 K/uL (0-0.2); EOS % 1.1 %; EOS ABS # 0.13 K/uL (0-0.5); HEMATOCRIT 34.5 % (42-52); HEMOGLOBIN 11.7 g/dL (14.0-18.0); IG# 0.04 K/uL (0.00-0.02); LYMPH ABS # 0.98 K/uL (1.2-3.4); MEAN CELL VOLUME 100.9 fL (80-100); MEAN CORPUSCULAR HEMOGLOBIN 34.2 pg (25-34); MEAN CORPUSCULAR HGB CONC 33.9 g/dl (32-36); MEAN PLATELET VOLUME 11.6 fL (7.4-10.4); MONO % 7.5 %; MONO ABS # 0.93 K/uL (0.11-0.59); NEUT % 82.9 %; NEUT ABS # 10.21 K/uL (1.4-6.5); PLATELET COUNT 237 K/uL (130-400); RED CELL DISTRIBUTION WIDTH CV 13.7 % (11.5-14.5); RED CELL DISTRIBUTION WIDTH SD 50.3 fL (36.4-46.3); WHITE BLOOD COUNT 12.32 K/uL (4.8-10.8)
[2017-12-01 06:06] LABS: CALCIUM 8.4 mg/dl (8.5-10.1); CREATININE 1.38 mg/dl (0.60-1.40); POTASSIUM 4.3 mmol/L (3.5-5.1)
[2017-12-01] MEDS: LEVOTHYROXINE 175 MCG TAB PO SCH (06:16)
[2017-12-01] MEDS: PIPERACILL/TAZOBAC IV 3.375 GM in D5W 100ML IV SCH ×2 (06:16→14:14)
[2017-12-01 07:05] VITALS: BP 91/49; PULSE 72; TEMP 37.3; O2SAT 93
[2017-12-01] MEDS: METOPROLOL SUCC 25MG EXT REL TAB PO SCH (07:39)
[2017-12-01] MEDS: BACLOFEN 10 MG TAB PO SCH (08:00)
[2017-12-01] MEDS: DOCUSATE SODIUM 100 MG CAP PO SCH (08:00)
[2017-12-01] MEDS: TAMSULOSIN HCL 0.4 MG CAP PO SCH (08:00)
[2017-12-01] MEDS: ALLOPURINOL 100 MG TAB PO SCH ×2 (08:00→21:04)
[2017-12-01] MEDS: ATORVASTATIN 20 MG TAB PO SCH (08:00)
[2017-12-01] MEDS: LIDODERM (LIDOCAINE) PATCH 5% TD SCH (08:00)
[2017-12-01] MEDS: LOSARTAN POTASSIUM 25 MG TAB PO SCH (08:00)
[2017-12-01] MEDS: FINASTERIDE 5 MG TAB PO SCH (08:00)
[2017-12-01] MEDS: CARVEDILOL 3.125 MG TAB PO SCH ×2 (08:00→21:04)
[2017-12-01] MEDS: ENOXAPARIN 40 MG/0.4 ML SYR SQ SCH (08:01)
[2017-12-01] MEDS: PANTOprazole SOD 40 MG TAB PO SCH (08:01)
[2017-12-01] MEDS: MULTIVITAMIN TAB PO SCH (08:01)
[2017-12-01] MEDS: ASPIRIN 81 MG ECTAB PO SCH (08:02)
[2017-12-01] MEDS: KETOROLAC TROMETHAMINE 15 MG/ML VIAL IV. PRN (08:09)
--- NOTE | 2017-12-01 10:13 | Pain Management Consultation ---
Pain Management Consultation Date of Consultation Dec 01, 2017. Reason for Consultation Low back and left leg radicular pain. Pain Location 1 - Distal lumbar spine pain 2 - Left posterior leg radicular pain up to left knee History Mr. Hubert Morales is a 77-year-old male admitted to [facility] with a complicated urinary tract infection and has complained of experiencing axial low back pain in the distal lumbar spine that radiates into the posterior aspect of the left proximal leg behind the knee. He reports the pain started insidiously without any known injury or any relation to activity on November 20 and it has increased in intensity since. Pain described as a sharp, shooting sensation that is associated with any movement of the lumbar spine including forward flexion or lateral rotation. Pain is relieved by assuming a constant, immobile semi-recombinant position. However, any movement such as attempting to sit up in bed or roll onto his side causes him to experience his typical pain. He rates the pain as 10/10 when severe and 1/10 when minimal such as when he is in supine, immobile position. He was initially seen by his PCP as an outpatient and underwent an MRI which reported multifactorial degenerative changes throughout the entire lumbar spine that have mildly progressed since 02/04 2009. It also demonstrates neural foraminal narrowing at multiple levels, most significant at left L4/L5 foramen. Additionally, a demonstrate heterogenous appearance of bone marrow agonal with edematous changes in the endplates at multiple levels and is presence of small osseous metastatic lesion that could not be excluded on this exam alone. An incidental finding of mild aneurysmal dilatation of the infrarenal aorta measuring 3.4 cm was also seen. Currently the patient has been sitting oral oxycodone with minimal efficacy for pain, especially with movement. He is also receiving baclofen, ketorolac and Lidoderm patch with minimal efficacy. He denies any neurological changes such as bowel or bladder incontinence, sensory or motor changes associated with this pain. While an inpatient, he has not been able to get out of his bed as result of the pain. He has a previous history of esophageal cancer and has undergone esophagectomy approximately 10 years ago. Past Medical/Surgical History (1) coronary artery disease s/p CABG (2) esophagectomy s/p cancer (3) Complicated urinary tract infection Family History Diabetes mellitus Social / Work History Marital Status: Occupation: retired Allergies Coded Allergies: Morphine (Verified Allergy, Mild, ITCHING, 11/30/17) ITCHING OF FACE AND HEAD Medications Current Inpatient Medications Medications (Trade) Dose Ordered Sig/Fidel Route Start Time Stop Time Status Last Admin Dose Admin Lidocaine (Lidoderm Patch 5%) 1 patch QAM TD 12/01/17 08:00 12/31/17 08:59 12/01/17 08:00 1 PATCH Miscellaneous (Remove Lidoderm Patch) 1 ea DAILY@1999 N/A 11/30/17 15:00 12/30/17 14:59 11/30/17 14:45 1 EA Enoxaparin Sodium (Lovenox Inj) 40 mg Q24H SQ 11/30/17 08:00 12/30/17 07:59 12/01/17 08:01 40 MG Acetaminophen (Tylenol Tab) 650 mg Q4H PRN PO 11/30/17 01:45 12/30/17 01:44 Prochlorperazine Edisylate 5 mg/ Syringe 5 ml @ 5 mls/min Q6H PRN IV 11/30/17 01:45 12/30/17 01:44 Allopurinol (Zyloprim Tab) 100 mg BID PO 11/30/17 08:00 12/30/17 08:59 12/01/17 08:00 100 MG Aspirin (Ecotrin Tab) 162 mg QAM PO 11/30/17 08:00 12/30/17 08:59 12/01/17 08:02 162 MG Atorvastatin Calcium (Lipitor Tab) 20 mg QAM PO 11/30/17 08:00 12/30/17 08:59 12/01/17 08:00 20 MG Carvedilol (Coreg Tab) 3.125 mg BID PO 11/30/17 08:00 12/30/17 08:59 11/30/17 20:19 3.125 MG Finasteride (Proscar Tab) 5 mg QAM PO 11/30/17 08:00 12/30/17 08:59 12/01/17 08:00 5 MG Levothyroxine Sodium (Synthroid Tab) 175 mcg DAILYBB PO 11/30/17 06:30 12/30/17 06:29 12/01/17 06:16 175 MCG Losartan Potassium (coZAAR TAB) 25 mg QAM PO 11/30/17 08:00 12/30/17 08:59 11/30/17 08:58 25 MG Metoprolol Succinate (Toprol Xl Tab) 25 mg QAM PO 11/30/17 08:00 12/30/17 08:59 Multivitamins (Multivitamin Tab) 1 tab QAM PO 11/30/17 08:00 12/30/17 08:59 12/01/17 08:01 1 TAB Nitroglycerin (Nitrostat Tab) 0.4 mg PRN PRN [place] 11/30/17 02:00 12/30/17 01:59 Tamsulosin HCl (Flomax Cap) 0.4 mg QAM PO 11/30/17 08:00 12/30/17 08:59 12/01/17 08:00 0.4 MG Trazodone HCl (Desyrel Tab) 50 mg HS PO 11/30/17 21:00 12/30/17 20:59 11/30/17 20:21 50 MG Pantoprazole Sodium (Protonix Tab) 40 mg QAM PO 11/30/17 08:00 12/30/17 08:59 12/01/17 08:01 40 MG Miscellaneous Information (Consult) 1 ea UD PRN N/A 11/30/17 08:00 12/30/17 07:59 Tramadol HCl (Ultram Tab) not relieved ... Q6H PRN PO 11/30/17 02:00 12/30/17 01:59 11/30/17 19:14 50 MG Docusate Sodium (coLACE CAP) 100 mg DAILY PO 12/01/17 08:00 12/31/17 07:59 12/01/17 08:00 100 MG Ketorolac Tromethamine (Toradol Inj) 15 mg Q6H PRN IV. 11/30/17 02:45 12/05/17 02:44 12/01/17 08:09 15 MG Piperacillin Sod/ Tazobactam Sod 3.375 gm/Dextrose 115 ml @ 28.75 mls/ hr Q8H IV 11/30/17 06:00 12/10/17 05:59 12/01/17 06:16 28.75 MLS/HR Baclofen (Lioresal Tab) 5 mg BID PO 11/30/17 20:00 12/30/17 19:59 12/01/17 08:00 5 MG Diphenhydramine HCl (Benadryl Syrup) 12.5 mg Q8H PRN PO 11/30/17 12:00 12/30/17 11:59 11/30/17 13:16 12.5 MG Oxycodone HCl (Roxicodone Immediate Rel Tab) 7.5 mg Q6HWA PRN PO 11/30/17 14:00 12/14/17 13:59 11/30/17 14:43 7.5 MG Review of Systems Denies any recent history of fever, night sweats, unexplained weight loss, or constitutional symptoms. Otherwise, 8 point review of system has been reported to be negative. Physical Exam Height & Weight: Height 6 feet, 0.00 inches. Weight 96.200 (Kilograms) 212 (Pounds) Last Vital Signs Documentation Date Time Temp Pulse Resp B/P (MAP) Pulse Ox O2 Delivery O2 Flow Rate FiO2 12/01/17 07:05 37.3 72 18 91/49 (63) 93 Room Air Laboratory Laboratory Results (Last CBC): 12/01/17 05:25 Red Blood Count 3.42 L, Mean Corpuscular Volume 100.9 H, Mean Corpuscular Hemoglobin 34.2 H, Mean Corpuscular Hemoglobin Concent 33.9, Mean Platelet Volume 11.6 H, Neutrophils (%) (Auto) 82.9, Lymphocytes (%) (Auto) 8.0, Monocytes (%) (Auto) 7.5, Eosinophils (%) (Auto) 1.1, Basophils (%) (Auto) 0.2, Neutrophils # (Auto) 10.21 H, Lymphocytes # (Auto) 0.98 L, Monocytes # (Auto) 0.93 H, Eosinophils # (Auto) 0.13, Basophils # (Auto) 0.03 Imaging MRI: non enhanced, reports reviewed MRI Findings MRI report dated 11/28/2017 was reviewed. Findings are noted in the HPI above. CT: enhanced CT Findings CT ABDOMEN: IMPRESSION: 1. Bilateral nephrolithiasis. No ureteral calculi. Mild bilateral hydroureter which is likely related to moderate bladder distention. 2. Mild prevertebral infiltration at the L3-L4 and L4-L5 levels. No fracture identified. This finding is nonspecific. Differential considerations include an infectious process or acute degenerative process. An MRI of the lumbar spine could be obtained if clinical suspicion for an infectious process. 3. Moderate amount of stool within the colon. No evidence for a bowel obstruction. 4. 3.6 cm infrarenal abdominal aortic aneurysm. No rupture. 5. Large hiatal hernia. 6. Cholelithiasis. No evidence for acute cholecystitis. 7. 3.7 cm hypodense left renal lesion which contains coarse peripheral calcifications. Although indeterminate, this is unchanged since CT of August 07, 2012 and is probably benign Electronically signed by: Ivan Valladares M.D. 11/29/2017 10:15 PM Dictated Date/Time: 11/29/2017 9:55 PM [place] Drug Monitoring Program Search Results: patient reviewed within database Drug Monitoring Findings: Patient received a prescription for tramadol on November 28 and Tylenol with codeine in April 2017. Assessment 1. Complicated urinary tract infection. 2. Lumbar radiculitis with multi-level degenerative changes lumbar spine. 3. History of esophageal cancer in the remote past. 4. Abnormal findings on MRI, unlikely but possibly related to malignancy. Recommendations 1. At the present time, Mr. Morales is not a candidate for an interventional therapy for pain management or for biopsy of the osseous lesion as he has a current urinary tract infection. 2. Recommend once his UTI is treated, he can undergo interventional therapy for pain management as an outpatient and follow-up for the abnormal findings on the MRI either with a follow-up MRI or orthopedic consultation. 3. For pain management presently, recommend discontinuing the baclofen, ketorolac, Lidoderm patch, oxycodone is tramadol is also needs. 4. Recommend starting gabapentin 100 mg 3 times daily and gradually over next 24 escalating dose to 300 mg 3 times daily as tolerated for anti-neuropathic effect for the radicular pain. 5. Recommend hydrocodone 5-10 mg every 4 hours as needed for analgesia. 6. Recommend oral Medrol Dosepak. 7. Orders written.
[2017-12-01] MEDS ORDERED: METHYLPREDNISOLONE 4MG TAB, 6 DAY TAPER PO SCH (10:15)
--- NOTE | 2017-12-01 10:15 | Clinical Documentation Query ---
OBED Aguilera : CLINICAL DOCUMENTATION QUERY Patient is a 77 year old male admitted for evaluation of left sided lower back pain radiating to LLE and abnormal UA. Noted history of urinary retention and intermittent self-catheterization at home. Urine cultures from 11/01 demonstrated enterococcus. Reportedly febrile at home. H&P documentation includes "complicated UTI". Culture pending but maintained on IV Zosyn. This documentation has not been maintained and as appropriate, consider clarification as suggested below as this impacts accurate DRG assignment. Thank you. In your clinical opinion is this patient being managed for: ( ) Possible UTI due to intermittent self-catheterization ( ) Not Agree ( ) Other explanation of clinical findings (No explanation is considered a No Response) ( x) Unable to determine ( ) Need to Discuss (Phone CDS or qliq) (No discussion is considered a No Response) The medical record reflects the following clinical findings, treatment, and risk factors. Clinical Indicators: As above Treatment: UA, C&S, IV Zosyn Risk Factors: Intermittent self catheterization. Please clarify and document your clinical opinion in the progress notes and discharge summary. Terms such as "probable", "suspected", "likely", "questionable", "possible", or "still to be ruled out" are acceptable. IF IN AGREEMENT, YOU MUST DOCUMENT ABOVE DIAGNOSTIC STATEMENT IN DAILY PROGRESS NOTES AND DISCHARGE SUMMARY. This document is not part of the patient's record. Thank You, Stevie Anders RN [phone]
[2017-12-01] MEDS ORDERED: METHYLPREDNISOLONE 4 MG TAB PO SCH (10:45)
[2017-12-01] MEDS: GABAPENTIN 100 MG CAP PO SCH ×3 (11:11→21:04)
--- NOTE | 2017-12-01 13:34 | Progress Note ---
Medicine Progress Note Date & Time of Visit: Dec 01, 2017 at 13:23. Subjective Pt was seen and examined Lying in bed with no distress present in his room and we had a long discussion about his plan Pt said that he continues to have pain in his lower back He said that the pain med does not seem to help much He also complaints of constipation He said that his last BM was about 5 days ago Denies any chest pain, palpitation, dizziness and SOB Objective Last 8 Hrs Date Time Temp Pulse Resp B/P (MAP) Pulse Ox O2 Delivery O2 Flow Rate FiO2 12/01/17 08:55 Room Air 12/01/17 07:05 37.3 72 18 91/49 (63) 93 Room Air Physical Exam: General- No acute distress Head- atraumatic Eyes- PERRL, EOMI ENT- oropharynx clear Neck- supple, no JVD Lungs- No acute distress Heart- regular rhythm; no murmur, Abdomen- normal bowel sounds, soft Extremities- no calf tenderness Neuro- alert, oriented x 3; PERRL, EOMI Skin- warm & dry Laboratory Results: Last 24 Hours Test 12/01/17 05:25 White Blood Count 12.32 K/uL Red Blood Count 3.42 M/uL Hemoglobin 11.7 g/dL Hematocrit 34.5 % Mean Corpuscular Volume 100.9 fL Mean Corpuscular Hemoglobin 34.2 pg Mean Corpuscular Hemoglobin Concent 33.9 g/dl Platelet Count 237 K/uL Mean Platelet Volume 11.6 fL Neutrophils (%) (Auto) 82.9 % Lymphocytes (%) (Auto) 8.0 % Monocytes (%) (Auto) 7.5 % Eosinophils (%) (Auto) 1.1 % Basophils (%) (Auto) 0.2 % Neutrophils # (Auto) 10.21 K/uL Lymphocytes # (Auto) 0.98 K/uL Monocytes # (Auto) 0.93 K/uL Eosinophils # (Auto) 0.13 K/uL Basophils # (Auto) 0.03 K/uL RDW Standard Deviation 50.3 fL RDW Coefficient of Variation 13.7 % Immature Granulocyte % (Auto) 0.3 % Immature Granulocyte # (Auto) 0.04 K/uL Sodium Level 132 mmol/L Potassium Level 4.3 mmol/L Chloride Level 99 mmol/L Carbon Dioxide Level 25 mmol/L Anion Gap 8.0 mmol/L Blood Urea Nitrogen 25 mg/dl Creatinine 1.38 mg/dl Est Creatinine Clear Calc Drug Dose 54.8 ml/min Estimated GFR () 57.2 Estimated GFR (Non- 49.3 BUN/Creatinine Ratio 18.2 Random Glucose 111 mg/dl Calcium Level 8.4 mg/dl Assessment & Plan Left Sided Lower Back Pain radiated to Left Lower Ext Might be related to sciatica? Outpt MRI showed on 12/02 no acute abnormalities identified. 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 No significant spinal canal stenosis at any level. Heterogeneous appearance of bone marrow signal with edematous changes in the endplates at several levels Received IV morphine and oxy with no relief sciatica Will increase oxycodone to 10mg Continue IV morphine Orthopedic consult PT/OT once pain alleviates Fall precaution 12/01 Continue to have pain Pain management on board Discussed case with Dr. Cabello recommended no interventional therapy for pain management or for biopsy of the osseous lesion due to UTI at this time. Recommended gabapentin 100 mg 3 times daily and gradually over next 24 escalating dose to 300 mg 3 times daily as tolerated Hydrocodone 5-10 mg every 4 hours as needed for analgesia and oral Medrol Dosepak. Orthopedic on board- pending Continue PT/OT Fall precaution MRI report 1. No acute abnormalities identified. 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 No significant spinal canal stenosis at any level. 2. Neural foraminal narrowing of different degree at several levels, most significant, moderate, in the left L4-5 foramen. 3. Heterogeneous appearance of bone marrow signal with edematous changes in the endplates at several levels is more likely related to degenerative disc disease. Please note that presence of small osseous metastatic lesions cannot be excluded based on this examination alone in this patient with known prior history of cancer. 4. Mild aneurysmal dilatation of the infrarenal aorta, which measures up to 3.4 cm in diameter (3.1 cm in 2008). UTI possible due to intermittent self cath Urine cx grew strep Afebrile WBC mildly elevated Will change IV zosyn Follow up sensitivity Hyponatremia Na 132 Received NS Monitor BMP BPH Continue flomax and proscar Stable CAD S/P coronary artery bypass grafting. Denies any chest pain Stable Esophageal cancer S/P postsurgery Stable Hypertension BP stable. Anemia Hbg dropped to 11 today No signs of active bleeding Monitor CBC DVT px Lovenox Code status Full code Current Inpatient Medications: Current Inpatient Medications Medications (Trade) Dose Ordered Sig/Fidel Route Start Time Stop Time Status Last Admin Dose Admin Lidocaine (Lidoderm Patch 5%) 1 patch QAM TD 12/01/17 08:00 12/31/17 08:59 12/01/17 08:00 1 PATCH Miscellaneous (Remove Lidoderm Patch) 1 ea DAILY@1999 N/A 11/30/17 15:00 12/30/17 14:59 11/30/17 14:45 1 EA Enoxaparin Sodium (Lovenox Inj) 40 mg Q24H SQ 11/30/17 08:00 12/30/17 07:59 12/01/17 08:01 40 MG Acetaminophen (Tylenol Tab) 650 mg Q4H PRN PO 11/30/17 01:45 12/30/17 01:44 Prochlorperazine Edisylate 5 mg/ Syringe 5 ml @ 5 mls/min Q6H PRN IV 11/30/17 01:45 12/30/17 01:44 Allopurinol (Zyloprim Tab) 100 mg BID PO 11/30/17 08:00 12/30/17 08:59 12/01/17 08:00 100 MG Aspirin (Ecotrin Tab) 162 mg QAM PO 11/30/17 08:00 12/30/17 08:59 12/01/17 08:02 162 MG Atorvastatin Calcium (Lipitor Tab) 20 mg QAM PO 11/30/17 08:00 12/30/17 08:59 12/01/17 08:00 20 MG Carvedilol (Coreg Tab) 3.125 mg BID PO 11/30/17 08:00 12/30/17 08:59 11/30/17 20:19 3.125 MG Finasteride (Proscar Tab) 5 mg QAM PO 11/30/17 08:00 12/30/17 08:59 12/01/17 08:00 5 MG Levothyroxine Sodium (Synthroid Tab) 175 mcg DAILYBB PO 11/30/17 06:30 12/30/17 06:29 12/01/17 06:16 175 MCG Losartan Potassium (coZAAR TAB) 25 mg QAM PO 11/30/17 08:00 12/30/17 08:59 11/30/17 08:58 25 MG Metoprolol Succinate (Toprol Xl Tab) 25 mg QAM PO 11/30/17 08:00 12/30/17 08:59 Multivitamins (Multivitamin Tab) 1 tab QAM PO 11/30/17 08:00 12/30/17 08:59 12/01/17 08:01 1 TAB Nitroglycerin (Nitrostat Tab) 0.4 mg PRN PRN UT 11/30/17 02:00 12/30/17 01:59 Tamsulosin HCl (Flomax Cap) 0.4 mg QAM PO 11/30/17 08:00 12/30/17 08:59 12/01/17 08:00 0.4 MG Trazodone HCl (Desyrel Tab) 50 mg HS PO 11/30/17 21:00 12/30/17 20:59 11/30/17 20:21 50 MG Pantoprazole Sodium (Protonix Tab) 40 mg QAM PO 11/30/17 08:00 12/30/17 08:59 12/01/17 08:01 40 MG Miscellaneous Information (Consult) 1 ea UD PRN N/A 11/30/17 08:00 12/30/17 07:59 Docusate Sodium (coLACE CAP) 100 mg DAILY PO 12/01/17 08:00 12/31/17 07:59 12/01/17 08:00 100 MG Piperacillin Sod/ Tazobactam Sod 3.375 gm/Dextrose 115 ml @ 28.75 mls/ hr Q8H IV 11/30/17 06:00 12/10/17 05:59 12/01/17 06:16 28.75 MLS/HR Diphenhydramine HCl (Benadryl Syrup) 12.5 mg Q8H PRN PO 11/30/17 12:00 12/30/17 11:59 11/30/17 13:16 12.5 MG Acetaminophen/ Hydrocodone Bitart ([place] 5/325 Tab) 1 tab Q4H PRN PO 12/01/17 10:15 12/15/17 10:14 Acetaminophen/ Hydrocodone Bitart ([place] 7.5/325 Tab) 1 tab Q6H PRN PO 12/01/17 10:15 12/15/17 10:14 Gabapentin (Neurontin Cap) 100 mg TID PO 12/01/17 14:00 12/31/17 13:59 12/01/17 11:11 100 MG Methylprednisolone (Medrol Tab) 8 mg 07,21 PO 12/01/17 10:45 12/01/17 21:01 12/01/17 11:10 8 MG Methylprednisolone (Medrol Tab) 4 mg 13,18 PO 12/01/17 13:00 12/01/17 18:01 Methylprednisolone (Medrol Tab) 4 mg 07,13,18 PO 12/02/17 07:00 12/02/17 18:01 Methylprednisolone (Medrol Tab) 8 mg HS PO 12/02/17 21:00 12/02/17 21:01 Methylprednisolone (Medrol Tab) 4 mg 07,13,18,21 PO 12/03/17 07:00 12/03/17 21:01 Methylprednisolone (Medrol Tab) 4 mg 07,13,21 PO 12/04/17 07:00 12/04/17 21:01 Methylprednisolone (Medrol Tab) 4 mg 07,21 PO 12/05/17 07:00 12/05/17 21:01 Methylprednisolone (Medrol Tab) 4 mg 07 PO 12/06/17 07:00 12/06/17 07:01
[2017-12-01] MEDS: METHYLPREDNISOLONE 4 MG TAB PO SCH ×2 (14:14→18:35)
[2017-12-01] MEDS ORDERED: BISACODYL 5 MG TABEC PO ONE (14:15)
[2017-12-01 15:01] VITALS: BP 112/57; PULSE 69; TEMP 36.6; O2SAT 94
--- NOTE | 2017-12-01 17:44 | DIAGNOSTIC IMAGING REPORT ---
LUMBAR SPINE CT WITHOUT CONTRAST CLINICAL HISTORY: Back and left leg pain. Complicated urinary tract infection. COMPARISON STUDY: Lumbar spine radiograph January 02, 2009 and lumbar spine MRI November 28, 2017. TECHNIQUE: Axial images of the lumbar spine were obtained without IV contrast. Sagittal and coronal reconstructions were viewed. FINDINGS: For purposes of numbering on this exam, the L5-S1 disc space is assigned to axial image 239 of 306. Note is made of mild dextroscoliosis of the lumbar spine. There is subtle lucency with mild concavity along the superior plate of L4. This may reflect a Schmorl's node or less likely compression fracture. No additional fractures are identified. There is marked disc space narrowing at L4-L5 with discogenic changes. Central canal and neural foramen are suboptimally assessed by CT. Note is made of paravertebral edema at the L3-L4 and L4-L5 levels which is similar to CT of November 29, 2017. This extends along the left psoas muscle. No well-defined fluid collection is identified on this unenhanced examination. There may be subtle asymmetric hypodensity within the medial left psoas muscle. An infrarenal abdominal aortic aneurysm and aneurysmal dilatation of the bilateral common iliac arteries is partially imaged on this exam. This appears unchanged. IMPRESSION: 1. Subtle concavity with lucency along the superior endplate of L4 which may reflect a Schmorl's node, possibly acute, or a mild compression fracture. 2. Persistent paravertebral edema at the L3-L4 and L4-L5 levels similar to CT of November 29, 2017. This extends along the left psoas muscle with possible hypodensity within the medial left psoas muscle without well-defined fluid collection on unenhanced exam. This raises the possibility of an infectious process however edema related to fracture could appear similar. This could be correlated with clinical evidence for an infectious process. Suboptimal evaluation of central canal given CT technique. 3. Severe disc space narrowing at L4-L5. 4. Partially visualized infrarenal abdominal aortic aneurysm and aneurysmal dilatation of the bilateral common iliac arteries which appear unchanged. Electronically signed by: Ivan Valladares M.D. 12/01/2017 5:43 PM Dictated Date/Time: 12/01/2017 5:22 PM
[2017-12-01] MEDS ORDERED: GADAVIST IV PRN (18:30)
--- NOTE | 2017-12-01 18:48 | DIAGNOSTIC IMAGING REPORT ---
MRI OF THE LUMBAR SPINE WITH AND WITHOUT CONTRAST CLINICAL HISTORY: Back and left leg pain. Complicated urinary tract infection. No recent trauma. COMPARISON STUDY: Lumbar spine MRI November 28, [address] performed earlier today. TECHNIQUE: Utilizing a 1.5 Isatu magnet and dedicated coil, multiplanar, multiecho imaging of the lumbar spine was performed before and after uneventful IV administration of 9.5 mL of Gadavist. FINDINGS: For purposes of numbering on this exam, the L5-S1 disc space is assigned to axial image 23 of 25. There is mild dextroscoliosis of the lumbar spine. Several Schmorl's nodes are noted. Conus terminates at the upper L1 level. Marked distention of the bladder is noted. Note is made of increased T2 signal with associated enhancement posterior to the L4 vertebral body and to a lesser extent the L3 and L5 vertebral bodies. No rim-enhancing intracanalicular fluid collection is present. There has been interval development of increased fluid signal within the L4-L5 disc since MRI of November 28, 2017. Moderate left and mild right paravertebral edema is noted at the L3-L5 levels. Note is made of a rim-enhancing 1.9 x 1 cm left paravertebral abnormality along the medial aspect of the left psoas muscle and adjacent to the L4-L5 disc space. This contains fluid signal on the axial T2 sequence, image 20 of 25. This favors a developing abscess. No additional rim-enhancing fluid collections are identified on this examination. Note is made of signal abnormality along the superior endplate of L5. There is associated enhancement. In addition, there is abnormal marrow signal within the L3 and L4 vertebral bodies. L1-2: There is minimal disc bulge. The central canal and neural foramen are patent. L2-3: There is disc bulge with disc space narrowing. Central canal and neural foramen are patent. L3-4: Disc space narrowing is noted. There is moderate facet arthrosis. Central canal and neural foramen are patent. L4-5: There is marked disc space narrowing with aforementioned inflammatory changes, as described above. There is no significant central canal stenosis. There is bilateral mild neural foraminal stenosis. L5-S1: Central canal neural foramen are patent. There is severe facet arthrosis. IMPRESSION: 1. Findings consistent with acute L4-L5 discitis. Suspected associated osteomyelitis of L4 and L5 and potentially L3 although differentiation between osteomyelitis and discogenic changes is difficult. Anterior epidural T2 hyperintensity with enhancement posterior to the L4 vertebral body and to a lesser extent the L3 and L5 vertebral bodies. This favors phlegmon. No rim-enhancing fluid collection to suggest epidural abscess. Short-term follow-up MRI might be considered to exclude interval development of an epidural abscess. Associated L3-L5 paravertebral inflammation, left greater than right, with an associated developing 1.9 x 1 cm left paravertebral/psoas muscle abscess. Discussed with Dr. Allan at time of dictation. 2. Marked distention of the bladder. 3. Multiple Schmorl's nodes, including a possible acute L4 Schmorl's node. 4. No severe central canal stenosis. Electronically signed by: Ivan Valladares M.D. 12/01/2017 6:46 PM Dictated Date/Time: 12/01/2017 6:22 PM
[2017-12-01] MEDS ORDERED: VANCOMYCIN CONSULT ACTIVE PRN (19:30)
--- NOTE | 2017-12-01 19:30 | Progress Note ---
Internal Med Progress Note Date of Service: Dec 01, 2017. Provider Documentation: Made aware by RN of abnormal MRI results. Findings consistent with acute L4-L5 discitis. Suspected associated osteomyelitis of L4 and L5 and potentially L3 although differentiation between osteomyelitis and discogenic changes is difficult. Anterior epidural T2 hyperintensity with enhancement posterior to the L4 vertebral body and to a lesser extent the L3 and L5 vertebral bodies. This favors phlegmon. No rim-enhancing fluid collection to suggest epidural abscess. Short-term follow-up MRI might be considered to exclude interval development of an epidural abscess. Associated L3-L5 paravertebral inflammation, left greater than right, with an associated developing 1.9 x 1 cm left paravertebral/psoas muscle abscess. AP Spinal osteomyelitis/abscess Blood cultures, IV Vancomycin (dc IV Zosyn) Will likely need ID consult at some point. DC steroid course initiated by pain management. Case discussed with Dr. Allan (Orthopedics program specialist) who is in agreement with the plan of care. Will relay to AM provider. Vital Signs: Date Time Temp Pulse Resp B/P (MAP) Pulse Ox O2 Delivery O2 Flow Rate FiO2 12/02/17 08:06 Room Air 12/02/17 07:15 36.6 63 20 110/56 (74) 92 12/02/17 00:03 36.5 57 18 104/61 (75) 93 CPAP 12/01/17 20:15 Room Air 12/01/17 15:01 36.6 69 18 112/57 (75) 94 Lab Results: Results Past 24 Hours Test 12/02/17 06:53 Range/Units White Blood Count 12.82 4.8-10.8 K/uL Red Blood Count 3.34 4.7-6.1 M/uL Hemoglobin 11.3 14.0-18.0 g/dL Hematocrit 33.7 42-52 % Mean Corpuscular Volume 100.9 80-100 fL Mean Corpuscular Hemoglobin 33.8 25-34 pg Mean Corpuscular Hemoglobin Concent 33.5 32-36 g/dl Platelet Count 269 130-400 K/uL Mean Platelet Volume 11.7 7.4-10.4 fL Neutrophils (%) (Auto) 87.2 % Lymphocytes (%) (Auto) 6.6 % Monocytes (%) (Auto) 5.4 % Eosinophils (%) (Auto) 0.1 % Basophils (%) (Auto) 0.2 % Neutrophils # (Auto) 11.19 1.4-6.5 K/uL Lymphocytes # (Auto) 0.85 1.2-3.4 K/uL Monocytes # (Auto) 0.69 0.11-0.59 K/uL Eosinophils # (Auto) 0.01 0-0.5 K/uL Basophils # (Auto) 0.02 0-0.2 K/uL RDW Standard Deviation 50.2 36.4-46.3 fL RDW Coefficient of Variation 13.6 11.5-14.5 % Immature Granulocyte % (Auto) 0.5 % Immature Granulocyte # (Auto) 0.06 0.00-0.02 K/uL Sodium Level 137 136-145 mmol/L Potassium Level 4.4 3.5-5.1 mmol/L Chloride Level 105 98-107 mmol/L Carbon Dioxide Level 23 21-32 mmol/L Anion Gap 9.0 3-11 mmol/L Blood Urea Nitrogen 25 7-18 mg/dl Creatinine 1.24 0.60-1.40 mg/dl Est Creatinine Clear Calc Drug Dose 61.0 ml/min Estimated GFR () 65.0 Estimated GFR (Non- 56.1 BUN/Creatinine Ratio 20.3 10-20 Random Glucose 150 70-99 mg/dl Calcium Level 8.4 8.5-10.1 mg/dl Microbiology Results 12/01/17 Blood Culture, Received Pending 12/01/17 Blood Culture, Received Pending
[2017-12-01] MEDS ORDERED: VANCOMYCIN IV 2,250 MG in SODIUM CHLORIDE 0.9% 500ML 500 ML IV ONE (20:30)
--- NOTE | 2017-12-01 20:53 | Pharmacy Progress Note ---
Pharmacy Abx Initial Consult Date of Service Dec 01, 2017. Pharmacy Dosing Scope Date of Consult: 12/01/17 Consultation requested by: Dr. Almendarez Pharmacy is consulted to initiate Vancomycin IV dosing therapy, order appropriate labs and adjust drug dose/frequency. Subjective The patient is a 77 year old male admitted on Nov 30, 2017 at 01:19. Objective Height (Feet): 6 Height (Inches): 0.00 Weight (Kilograms): 96.200 Vital Signs (Past 12Hrs) Vital Signs Past 12 Hours Date Time Temp Pulse Resp B/P (MAP) Pulse Ox O2 Delivery O2 Flow Rate FiO2 12/01/17 15:01 36.6 69 18 112/57 (75) 94 12/01/17 08:55 Room Air Lab Results (24Hrs) Laboratory Tests (24 Hours) Test 12/01/17 05:25 White Blood Count 12.32 K/uL (4.8-10.8) H Red Blood Count 3.42 M/uL (4.7-6.1) L Hemoglobin 11.7 g/dL (14.0-18.0) L Hematocrit 34.5 % (42-52) L Mean Corpuscular Volume 100.9 fL (80-100) H Mean Corpuscular Hemoglobin 34.2 pg (25-34) H Mean Corpuscular Hemoglobin Concent 33.9 g/dl (32-36) Platelet Count 237 K/uL (130-400) Mean Platelet Volume 11.6 fL (7.4-10.4) H Neutrophils (%) (Auto) 82.9 % Lymphocytes (%) (Auto) 8.0 % Monocytes (%) (Auto) 7.5 % Eosinophils (%) (Auto) 1.1 % Basophils (%) (Auto) 0.2 % Neutrophils # (Auto) 10.21 K/uL (1.4-6.5) H Lymphocytes # (Auto) 0.98 K/uL (1.2-3.4) L Monocytes # (Auto) 0.93 K/uL (0.11-0.59) H Eosinophils # (Auto) 0.13 K/uL (0-0.5) Basophils # (Auto) 0.03 K/uL (0-0.2) Micro Results Date/Time Source Procedure Growth Status 12/01/17 20:00 Blood Blood Culture Pending Received 12/01/17 19:47 Blood Blood Culture Pending Received 11/29/17 22:40 Urine , Clean Catch Urine Culture - Preliminary Streptococcus Species Resulted Risk Factors for Resistance * Antimicrobial use within the last 90 days (Cipro for Enterococcus UTI). Assessment & Plan Assessment 77 year old male with complicated UTI, possible bacteremia (blood cultures pending). Plan Vancomycin IV * Loading dose: 2250 mg (23 mg/kg) ordered for 2029 today. * Maintenance dose: Vancomycin 1500 mg IV (15 mg/kg) every 18 hours * Estimated P'kinetic parameters: Ke = 0.048/hr, t1/2 = 14.4 hrs, Vd = 0.7 L/kg * Goal trough level for possible bacteremia: 15 to 20 mcg/mL * Trough level ordered for 12/04 before dose at 0200 Pharmacy will continue to follow and will adjust dose/frequency as necessary. Thank you.
[2017-12-01] MEDS: TRAZODONE HCL 50 MG TAB PO SCH (21:04)
[2017-12-02 00:03] VITALS: BP 104/61; PULSE 57; TEMP 36.5; O2SAT 93
[2017-12-02] MEDS: HYDROCODONE/ACETAMINOPHEN 7.5/325MG TAB PO PRN ×2 (04:39→14:00)
[2017-12-02] MEDS: LEVOTHYROXINE 175 MCG TAB PO SCH (06:30)
[2017-12-02] MEDS ORDERED: METHYLPREDNISOLONE 4 MG TAB PO SCH ×2 (07:00→21:00)
[2017-12-02 07:15] VITALS: BP 110/56; PULSE 63; TEMP 36.6; O2SAT 92
[2017-12-02 07:16] LABS: BASO % 0.2 %; BASO ABS # 0.02 K/uL (0-0.2); EOS % 0.1 %; EOS ABS # 0.01 K/uL (0-0.5); HEMATOCRIT 33.7 % (42-52); HEMOGLOBIN 11.3 g/dL (14.0-18.0); IG# 0.06 K/uL (0.00-0.02); LYMPH % 6.6 %; LYMPH ABS # 0.85 K/uL (1.2-3.4); MEAN CELL VOLUME 100.9 fL (80-100); MEAN CORPUSCULAR HEMOGLOBIN 33.8 pg (25-34); MEAN CORPUSCULAR HGB CONC 33.5 g/dl (32-36); MEAN PLATELET VOLUME 11.7 fL (7.4-10.4); MONO % 5.4 %; MONO ABS # 0.69 K/uL (0.11-0.59); NEUT % 87.2 %; NEUT ABS # 11.19 K/uL (1.4-6.5); PLATELET COUNT 269 K/uL (130-400); RED CELL DISTRIBUTION WIDTH CV 13.6 % (11.5-14.5); RED CELL DISTRIBUTION WIDTH SD 50.2 fL (36.4-46.3); WHITE BLOOD COUNT 12.82 K/uL (4.8-10.8)
[2017-12-02 07:45] LABS: CALCIUM 8.4 mg/dl (8.5-10.1); CREATININE 1.24 mg/dl (0.60-1.40); POTASSIUM 4.4 mmol/L (3.5-5.1)
[2017-12-02] MEDS: GABAPENTIN 100 MG CAP PO SCH ×3 (08:26→20:07)
[2017-12-02] MEDS: CARVEDILOL 3.125 MG TAB PO SCH (08:26)
[2017-12-02] MEDS: ATORVASTATIN 20 MG TAB PO SCH (08:27)
[2017-12-02] MEDS: DOCUSATE SODIUM 100 MG CAP PO SCH (08:27)
[2017-12-02] MEDS: FINASTERIDE 5 MG TAB PO SCH (08:27)
[2017-12-02] MEDS: PANTOprazole SOD 40 MG TAB PO SCH (08:27)
[2017-12-02] MEDS: TAMSULOSIN HCL 0.4 MG CAP PO SCH (08:27)
[2017-12-02] MEDS: MULTIVITAMIN TAB PO SCH (08:27)
[2017-12-02] MEDS: ALLOPURINOL 100 MG TAB PO SCH ×2 (08:27→20:08)
[2017-12-02] MEDS: LOSARTAN POTASSIUM 25 MG TAB PO SCH (08:27)
[2017-12-02] MEDS: METOPROLOL SUCC 25MG EXT REL TAB PO SCH (08:27)
[2017-12-02] MEDS: ENOXAPARIN 40 MG/0.4 ML SYR SQ SCH (08:28)
[2017-12-02] MEDS: ASPIRIN 81 MG ECTAB PO SCH (08:28)
[2017-12-02] MEDS: LIDODERM (LIDOCAINE) PATCH 5% TD SCH (08:28)
[2017-12-02] MEDS ORDERED: BISACODYL 5 MG TABEC ONE (09:20)
--- NOTE | 2017-12-02 09:27 | Orthopedic Consultation ---
Orthopedic Consultation Date of Consultation: Dec 02, 2017. Attending Physician: Clemente Guajardo M.D. Reason for Consultation: Back and left leg pain History of Present Illness Is a very pleasant 77-year-old male that began experiencing severe back and left leg symptoms early November. This progressed to the point that he was markedly limited with ambulation. He did obtain an MRI earlier this week that was relatively benign but was admitted to the hospital secondary to decline in status. He states this pain involves lumbosacral junction extending in the left buttock posterior thigh to the knee. It does not extend into the foot. It is exacerbated by activity bending or twisting. He denies any right lower extremity issues. Denies any bowel or bladder issues denies any specific trauma fall or event that contributed to his pain. He denies any previous history of back issues. Past Medical/Surgical History Medical Problems: (1) Back pain Status: Acute (2) Bladder distention Status: Acute (3) Hypothyroidism Status: Acute (4) Pneumonia Status: Acute (5) Pneumonia Status: Acute (6) UTI (urinary tract infection) Status: Acute (7) Weakness Status: Acute Family History Diabetes mellitus Social History Smoking Status: Former Smoker Drug Use: none Marital Status: Housing Status: lives with family Occupation Status: retired Allergies Coded Allergies: Morphine (Verified Allergy, Mild, ITCHING, 11/30/17) ITCHING OF FACE AND HEAD Home Medications Scheduled Allopurinol (Zyloprim), 100 MG PO BID Ascorbic Acid (Ascorbic Acid), 500 MG PO BID Aspirin (Aspirin), 325 MG PO QAM Atorvastatin (Lipitor), 20 MG PO QAM Carvedilol (Coreg), 3.125 MG PO BID Cholecalciferol (Vitamin D3), 2 TABS PO DAILY Ciprofloxacin Tab (Cipro), 500 MG PO BID Coenzyme Q10 (Ubidecarenone) (Co Q10), 60 MG PO DAILY Finasteride (Proscar), 5 MG PO QAM Fish Oil ([place]-3), 1 CAP PO BID Mkzrvwgzgbg-Agnyqkpcycj-Olv C- (Glucosamine Chondroitin 1), 2 CAPSULE PO QAM Levothyroxine Sodium (Levothyroxine Sodium), 175 MCG PO DAILY Losartan Potassium (Cozaar), 25 MG PO QAM Melatonin (Melatonin Maximum Strengt), 1 TAB PO HS Metoprolol Succ (Toprol Xl) (Toprol-Xl), 25 MG PO QAM Multivitamin (Multivitamin), 1 TAB PO QAM Omeprazole (Prilosec), 40 MG PO QAM Riboflavin (Riboflavin), 1 CAP PO QAM Tamsulosin Hcl (Flomax), 0.4 MG PO QAM Trazodone Hcl (Trazodone), 50 MG PO HS Vitamin E (Vitamin E), 1 CAP PO UD Scheduled PRN Acetaminophen (Tylenol), 1,000 MG PO Q8 PRN for Pain Baclofen (Lioresal), 10 MG PO BID PRN for muscle spasms Diphenhydramine Hcl (Benadryl Allergy), 2 TABS PO UD PRN for Itching Nitroglycerin (Nitrostat), 0.4 MG UT PRN PRN for Chest Pain Current Inpatient Medications Current Inpatient Medications Medications (Trade) Dose Ordered Sig/Fidel Route Start Time Stop Time Status Last Admin Dose Admin Lidocaine (Lidoderm Patch 5%) 1 patch QAM TD 12/01/17 08:00 12/31/17 08:59 12/02/17 08:28 1 PATCH Miscellaneous (Remove Lidoderm Patch) 1 ea DAILY@1999 N/A 11/30/17 15:00 12/30/17 14:59 12/01/17 21:00 1 EA Enoxaparin Sodium (Lovenox Inj) 40 mg Q24H SQ 11/30/17 08:00 12/30/17 07:59 12/02/17 08:28 40 MG Acetaminophen (Tylenol Tab) 650 mg Q4H PRN PO 11/30/17 01:45 12/30/17 01:44 Prochlorperazine Edisylate 5 mg/ Syringe 5 ml @ 5 mls/min Q6H PRN IV 11/30/17 01:45 12/30/17 01:44 Allopurinol (Zyloprim Tab) 100 mg BID PO 11/30/17 08:00 12/30/17 08:59 12/02/17 08:27 100 MG Aspirin (Ecotrin Tab) 162 mg QAM PO 11/30/17 08:00 12/30/17 08:59 12/02/17 08:28 162 MG Atorvastatin Calcium (Lipitor Tab) 20 mg QAM PO 11/30/17 08:00 12/30/17 08:59 12/02/17 08:27 20 MG Carvedilol (Coreg Tab) 3.125 mg BID PO 11/30/17 08:00 12/30/17 08:59 12/02/17 08:26 3.125 MG Finasteride (Proscar Tab) 5 mg QAM PO 11/30/17 08:00 12/30/17 08:59 12/02/17 08:27 5 MG Levothyroxine Sodium (Synthroid Tab) 175 mcg DAILYBB PO 11/30/17 06:30 12/30/17 06:29 12/02/17 06:30 175 MCG Losartan Potassium (coZAAR TAB) 25 mg QAM PO 11/30/17 08:00 12/30/17 08:59 12/02/17 08:27 25 MG Metoprolol Succinate (Toprol Xl Tab) 25 mg QAM PO 11/30/17 08:00 12/30/17 08:59 12/02/17 08:27 25 MG Multivitamins (Multivitamin Tab) 1 tab QAM PO 11/30/17 08:00 12/30/17 08:59 12/02/17 08:27 1 TAB Nitroglycerin (Nitrostat Tab) 0.4 mg PRN PRN UT 11/30/17 02:00 12/30/17 01:59 Tamsulosin HCl (Flomax Cap) 0.4 mg QAM PO 11/30/17 08:00 12/30/17 08:59 12/02/17 08:27 0.4 MG Trazodone HCl (Desyrel Tab) 50 mg HS PO 11/30/17 21:00 12/30/17 20:59 12/01/17 21:04 50 MG Pantoprazole Sodium (Protonix Tab) 40 mg QAM PO 11/30/17 08:00 12/30/17 08:59 12/02/17 08:27 40 MG Docusate Sodium (coLACE CAP) 100 mg DAILY PO 12/01/17 08:00 12/31/17 07:59 12/02/17 08:27 100 MG Diphenhydramine HCl (Benadryl Syrup) 12.5 mg Q8H PRN PO 11/30/17 12:00 12/30/17 11:59 11/30/17 13:16 12.5 MG Acetaminophen/ Hydrocodone Bitart ([place] 5/325 Tab) 1 tab Q4H PRN PO 12/01/17 10:15 12/15/17 10:14 Acetaminophen/ Hydrocodone Bitart ([place] 7.5/325 Tab) 1 tab Q6H PRN PO 12/01/17 10:15 12/15/17 10:14 12/02/17 04:39 1 TAB Gabapentin (Neurontin Cap) 100 mg TID PO 12/01/17 14:00 12/31/17 13:59 12/02/17 08:26 100 MG Ferrous Sulfate (Feosol Tab) 325 mg QAM PO 12/02/17 08:00 01/01/18 07:59 Gadobutrol (Gadavist) 9.5 mmol UD PRN IV 12/01/17 18:30 12/05/17 18:29 Vancomycin HCl (Consult) 1 ea UD PRN N/A 12/01/17 19:30 12/31/17 19:29 Vancomycin HCl 1500 mg/Sodium Chloride 530 ml @ 200 mls/hr Q18H IV 12/02/17 14:00 01/13/18 13:59 Physical Exam Date Time Temp Pulse Resp B/P (MAP) Pulse Ox O2 Delivery O2 Flow Rate FiO2 12/02/17 08:06 Room Air 12/02/17 07:15 36.6 63 20 110/56 (74) 92 12/02/17 00:03 36.5 57 18 104/61 (75) 93 CPAP 12/01/17 20:15 Room Air 12/01/17 15:01 36.6 69 18 112/57 (75) 94 On physical exam he is able to sit up in bed. He demonstrates reasonable strength to detailed testing bilateral lower extremities. Sensory appears to be symmetric and intact. I am unable to elicit tension signs. There is no abnormal skin markings. Laboratory Results Last 24 Hours Test 12/02/17 06:53 White Blood Count 12.82 K/uL Red Blood Count 3.34 M/uL Hemoglobin 11.3 g/dL Hematocrit 33.7 % Mean Corpuscular Volume 100.9 fL Mean Corpuscular Hemoglobin 33.8 pg Mean Corpuscular Hemoglobin Concent 33.5 g/dl Platelet Count 269 K/uL Mean Platelet Volume 11.7 fL Neutrophils (%) (Auto) 87.2 % Lymphocytes (%) (Auto) 6.6 % Monocytes (%) (Auto) 5.4 % Eosinophils (%) (Auto) 0.1 % Basophils (%) (Auto) 0.2 % Neutrophils # (Auto) 11.19 K/uL Lymphocytes # (Auto) 0.85 K/uL Monocytes # (Auto) 0.69 K/uL Eosinophils # (Auto) 0.01 K/uL Basophils # (Auto) 0.02 K/uL RDW Standard Deviation 50.2 fL RDW Coefficient of Variation 13.6 % Immature Granulocyte % (Auto) 0.5 % Immature Granulocyte # (Auto) 0.06 K/uL Sodium Level 137 mmol/L Potassium Level 4.4 mmol/L Chloride Level 105 mmol/L Carbon Dioxide Level 23 mmol/L Anion Gap 9.0 mmol/L Blood Urea Nitrogen 25 mg/dl Creatinine 1.24 mg/dl Est Creatinine Clear Calc Drug Dose 61.0 ml/min Estimated GFR () 65.0 Estimated GFR (Non- 56.1 BUN/Creatinine Ratio 20.3 Random Glucose 150 mg/dl Calcium Level 8.4 mg/dl Assessment & Plan Assessment L4-5 discitis with L4-5 radiculopathy on the left. Plan a long discussion with this patient reviewing his new MRI and CAT scan. On the CAT scan I appreciate significant facet hypertrophy on the left at the 4 5 level with calcifications and lateral recess stenosis undoubtedly contributing to his radicular complaints. The MRI with gadolinium of course demonstrated fluid within the disc space and the psoas collection of fluid that could be considered abscess. I have described this to the patient understands he will require an IV antibiotics. Pending his improvement we may need to consider decompression at the 4 5 level to address the severe radiculopathy.
[2017-12-02] MEDS ORDERED: NURSING VERBAL MED ORDER ONE (09:30)
[2017-12-02] MEDS: FERROUS SULFATE 325 MG TAB PO SCH (12:05)
[2017-12-02] MEDS: VANCOMYCIN IV 1,500 MG in SODIUM CHLORIDE 0.9% 500ML 500 ML IV SCH (12:05)
[2017-12-02] MEDS ORDERED: VANCOMYCIN IV 1,500 MG in SODIUM CHLORIDE 0.9% 500ML 500 ML IV SCH (14:00)
[2017-12-02] MEDS: PROCHLORPERAZINE INJ 5 MG in SYRINGE 4 ML IV PRN (14:55)
[2017-12-02 15:30] VITALS: BP 135/73; PULSE 121; TEMP 36.5; O2SAT 94
[2017-12-02 16:46] VITALS: PULSE 120; O2SAT 97
--- NOTE | 2017-12-02 18:35 | Progress Note ---
Medicine Progress Note Date & Time of Visit: Dec 02, 2017 at 17:51. Subjective Pt was seen and examined Lying in bed with no distress Pt said that pain seems to improve He was able to get out of bed with therapist today During routine vital sign this afternoon, his HR was above 120 EKG was done and was found to be on Afib with RVR Pt was transferred to telemetry He currently denies any chest pain, palpitation, dizziness and SOB By the time he transferred to tele, he already converted back to normal sinus rhythm Objective Last 8 Hrs Date Time Temp Pulse Resp B/P (MAP) Pulse Ox O2 Delivery O2 Flow Rate FiO2 12/02/17 16:46 120 18 97 12/02/17 15:30 36.5 121 18 135/73 (93) 94 Room Air Physical Exam: General- No acute distress Head- atraumatic Eyes- PERRL, EOMI ENT- oropharynx clear Neck- supple, no JVD Lungs- No acute distress Heart- Regular now (irregular few minutes ago) Abdomen- normal bowel sounds, soft Extremities- no calf tenderness Neuro- alert, oriented x 3; PERRL, EOMI Skin- warm & dry Laboratory Results: Last 24 Hours Test 12/02/17 06:53 White Blood Count 12.82 K/uL Red Blood Count 3.34 M/uL Hemoglobin 11.3 g/dL Hematocrit 33.7 % Mean Corpuscular Volume 100.9 fL Mean Corpuscular Hemoglobin 33.8 pg Mean Corpuscular Hemoglobin Concent 33.5 g/dl Platelet Count 269 K/uL Mean Platelet Volume 11.7 fL Neutrophils (%) (Auto) 87.2 % Lymphocytes (%) (Auto) 6.6 % Monocytes (%) (Auto) 5.4 % Eosinophils (%) (Auto) 0.1 % Basophils (%) (Auto) 0.2 % Neutrophils # (Auto) 11.19 K/uL Lymphocytes # (Auto) 0.85 K/uL Monocytes # (Auto) 0.69 K/uL Eosinophils # (Auto) 0.01 K/uL Basophils # (Auto) 0.02 K/uL RDW Standard Deviation 50.2 fL RDW Coefficient of Variation 13.6 % Immature Granulocyte % (Auto) 0.5 % Immature Granulocyte # (Auto) 0.06 K/uL Sodium Level 137 mmol/L Potassium Level 4.4 mmol/L Chloride Level 105 mmol/L Carbon Dioxide Level 23 mmol/L Anion Gap 9.0 mmol/L Blood Urea Nitrogen 25 mg/dl Creatinine 1.24 mg/dl Est Creatinine Clear Calc Drug Dose 61.0 ml/min Estimated GFR () 65.0 Estimated GFR (Non- 56.1 BUN/Creatinine Ratio 20.3 Random Glucose 150 mg/dl Calcium Level 8.4 mg/dl Date/Time Source Procedure Growth Status 12/01/17 20:00 Blood Blood Culture Pending Received 12/01/17 19:47 Blood Blood Culture Pending Received Assessment & Plan Left Sided Lower Back Pain radiated to Left Lower Ext Might be related to sciatica? Outpt MRI showed on 12/02 no acute abnormalities identified. 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 No significant spinal canal stenosis at any level. Heterogeneous appearance of bone marrow signal with edematous changes in the endplates at several levels Received IV morphine and oxy with no relief sciatica Will increase oxycodone to 10mg Continue IV morphine Orthopedic consult PT/OT once pain alleviates Fall precaution 12/02 Pain improves today MRI with contrast done showed findings consistent with acute L4-L5 discitis. 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 Pain management on board Discussed case with Dr. Cabello recommended no interventional therapy for pain management or for biopsy of the osseous lesion due to UTI at this time. Continue gabapentin Steroid d/c due to possible infection Continue Hydrocodone 5-10 mg every 4 hours as needed for analgesia Orthopedic on board- Might need to consider decompression at the 4 5 level to address the severe radiculopathy if no improvement with abx Vanco IV adding Will continue Zosyn for now ID consult Continue PT/OT Fall precaution MRI report 1. No acute abnormalities identified. 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 No significant spinal canal stenosis at any level. 2. Neural foraminal narrowing of different degree at several levels, most significant, moderate, in the left L4-5 foramen. 3. Heterogeneous appearance of bone marrow signal with edematous changes in the endplates at several levels is more likely related to degenerative disc disease. Please note that presence of small osseous metastatic lesions cannot be excluded based on this examination alone in this patient with known prior history of cancer. 4. 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 Brief Episode of Afib with RVR Last time was found on Afib was 2007 EKG showed Afib with HR 120's Converted back to NSR with rate control On carvedilol 3.125mg BID Received metoprolol 25mg Will start on metoprolol 25 mg BID Check ECHO in am CHADs-vasc score 2 for HTN and age Will defer to cardiology about abx Had never been on anticoagulant in the past Continue aspirin for now If back to Afib with RVR will start on cardizem drip and initiate anticoagulant Continue monitor in tele UTI possible due to intermittent self cath Urine cx positive for enterococcus faecalis Afebrile WBC mildly elevated On Vanco for possible lumbar abscess that also covers for UTI Hyponatremia Na 137 Received NS Monitor BMP Stable BPH Continue flomax and proscar Stable CAD S/P coronary artery bypass grafting. Denies any chest pain Stable Hypothyroidism TSH wnl continue levothyroxine Stable Esophageal cancer S/P postsurgery Stable Hypertension BP stable. Anemia Hbg 11.3 today No signs of active bleeding Monitor CBC Stable DVT px Lovenox Code status Full code Current Inpatient Medications: Current Inpatient Medications Medications (Trade) Dose Ordered Sig/Fidel Route Start Time Stop Time Status Last Admin Dose Admin Lidocaine (Lidoderm Patch 5%) 1 patch QAM TD 12/01/17 08:00 12/31/17 08:59 12/02/17 08:28 1 PATCH Miscellaneous (Remove Lidoderm Patch) 1 ea DAILY@1999 N/A 11/30/17 15:00 12/30/17 14:59 12/01/17 21:00 1 EA Enoxaparin Sodium (Lovenox Inj) 40 mg Q24H SQ 11/30/17 08:00 12/30/17 07:59 12/02/17 08:28 40 MG Acetaminophen (Tylenol Tab) 650 mg Q4H PRN PO 11/30/17 01:45 12/30/17 01:44 Prochlorperazine Edisylate 5 mg/ Syringe 5 ml @ 5 mls/min Q6H PRN IV 11/30/17 01:45 12/30/17 01:44 12/02/17 14:55 5 MLS/MIN Allopurinol (Zyloprim Tab) 100 mg BID PO 11/30/17 08:00 12/30/17 08:59 12/02/17 08:27 100 MG Aspirin (Ecotrin Tab) 162 mg QAM PO 11/30/17 08:00 12/30/17 08:59 12/02/17 08:28 162 MG Atorvastatin Calcium (Lipitor Tab) 20 mg QAM PO 11/30/17 08:00 12/30/17 08:59 12/02/17 08:27 20 MG Carvedilol (Coreg Tab) 3.125 mg BID PO 11/30/17 08:00 12/30/17 08:59 12/02/17 08:26 3.125 MG Finasteride (Proscar Tab) 5 mg QAM PO 11/30/17 08:00 12/30/17 08:59 12/02/17 08:27 5 MG Levothyroxine Sodium (Synthroid Tab) 175 mcg DAILYBB PO 11/30/17 06:30 12/30/17 06:29 12/02/17 06:30 175 MCG Losartan Potassium (coZAAR TAB) 25 mg QAM PO 11/30/17 08:00 12/30/17 08:59 12/02/17 08:27 25 MG Metoprolol Succinate (Toprol Xl Tab) 25 mg QAM PO 11/30/17 08:00 12/30/17 08:59 12/02/17 08:27 25 MG Multivitamins (Multivitamin Tab) 1 tab QAM PO 11/30/17 08:00 12/30/17 08:59 12/02/17 08:27 1 TAB Nitroglycerin (Nitrostat Tab) 0.4 mg PRN PRN UT 11/30/17 02:00 12/30/17 01:59 Tamsulosin HCl (Flomax Cap) 0.4 mg QAM PO 11/30/17 08:00 12/30/17 08:59 12/02/17 08:27 0.4 MG Trazodone HCl (Desyrel Tab) 50 mg HS PO 11/30/17 21:00 12/30/17 20:59 12/01/17 21:04 50 MG Pantoprazole Sodium (Protonix Tab) 40 mg QAM PO 11/30/17 08:00 12/30/17 08:59 12/02/17 08:27 40 MG Docusate Sodium (coLACE CAP) 100 mg DAILY PO 12/01/17 08:00 12/31/17 07:59 12/02/17 08:27 100 MG Diphenhydramine HCl (Benadryl Syrup) 12.5 mg Q8H PRN PO 11/30/17 12:00 12/30/17 11:59 11/30/17 13:16 12.5 MG Acetaminophen/ Hydrocodone Bitart ([place] 5/325 Tab) 1 tab Q4H PRN PO 12/01/17 10:15 12/15/17 10:14 Acetaminophen/ Hydrocodone Bitart ([place] 7.5/325 Tab) 1 tab Q6H PRN PO 12/01/17 10:15 12/15/17 10:14 12/02/17 14:00 1 TAB Gabapentin (Neurontin Cap) 100 mg TID PO 12/01/17 14:00 12/31/17 13:59 12/02/17 12:06 100 MG Ferrous Sulfate (Feosol Tab) 325 mg QAM PO 12/02/17 08:00 01/01/18 07:59 12/02/17 12:05 325 MG Gadobutrol (Gadavist) 9.5 mmol UD PRN IV 12/01/17 18:30 12/05/17 18:29 Vancomycin HCl (Consult) 1 ea UD PRN N/A 12/01/17 19:30 12/31/17 19:29 Vancomycin HCl 1500 mg/Sodium Chloride 530 ml @ 200 mls/hr Q16H IV 12/02/17 12:00 01/13/18 11:59 12/02/17 12:05 200 MLS/HR
[2017-12-02] MEDS ORDERED: METOPROLOL TARTRATE 1 MG/ML VIAL IV PRN (18:45)
[2017-12-02] MEDS ORDERED: METOPROLOL SUCC 25MG EXT REL TAB PO ONE (19:00)
[2017-12-02 19:08] VITALS: BP 115/58; PULSE 80; TEMP 36.4; O2SAT 94
[2017-12-02 20:07] LABS: POTASSIUM 4.1 mmol/L (3.5-5.1)
[2017-12-02] MEDS: TRAZODONE HCL 50 MG TAB PO SCH (20:07)
[2017-12-02] MEDS ORDERED: METOPROLOL SUCC 25MG EXT REL TAB PO SCH (21:00)
[2017-12-02 23:00] VITALS: BP 108/64; PULSE 60; TEMP 36.9; O2SAT 95
[2017-12-02] MEDS: HYDROCODONE/ACETAMIN 5/325MG TAB PO PRN (23:06)
[2017-12-03] VITALS (7 sets, daily range): BP systolic 101–159; BP diastolic 46–68; PULSE 58–66; TEMP 36.5–37.6; O2SAT 93–96
[2017-12-03] MEDS: VANCOMYCIN IV 1,500 MG in SODIUM CHLORIDE 0.9% 500ML 500 ML IV SCH ×2 (03:53→19:58)
[2017-12-03] MEDS: LEVOTHYROXINE 175 MCG TAB PO SCH (06:05)
[2017-12-03] MEDS ORDERED: METHYLPREDNISOLONE 4 MG TAB PO SCH (07:00)
[2017-12-03 07:33] LABS: BASO % 0.6 %; BASO ABS # 0.06 K/uL (0-0.2); EOS % 2.4 %; EOS ABS # 0.25 K/uL (0-0.5); HEMATOCRIT 32.8 % (42-52); HEMOGLOBIN 10.8 g/dL (14.0-18.0); IG# 0.05 K/uL (0.00-0.02); LYMPH ABS # 1.75 K/uL (1.2-3.4); MEAN CELL VOLUME 101.9 fL (80-100); MEAN CORPUSCULAR HEMOGLOBIN 33.5 pg (25-34); MEAN CORPUSCULAR HGB CONC 32.9 g/dl (32-36); MEAN PLATELET VOLUME 11.2 fL (7.4-10.4); MONO % 8.1 %; MONO ABS # 0.83 K/uL (0.11-0.59); NEUT % 71.4 %; NEUT ABS # 7.35 K/uL (1.4-6.5); PLATELET COUNT 248 K/uL (130-400); RED CELL DISTRIBUTION WIDTH CV 13.8 % (11.5-14.5); RED CELL DISTRIBUTION WIDTH SD 51.8 fL (36.4-46.3); WHITE BLOOD COUNT 10.29 K/uL (4.8-10.8)
--- NOTE | 2017-12-03 07:46 | Progress Note ---
Progress Note Date of Service Dec 03, 2017. Progress Note ID Consult Dictated #[id number] A/P: 1. Lumbar Discitis -Continue abx, follow cultures -Please obtain OR culture if any procedures -Thank you
[2017-12-03 08:07] LABS: CALCIUM 8.3 mg/dl (8.5-10.1); CREATININE 1.09 mg/dl (0.60-1.40); POTASSIUM 4.1 mmol/L (3.5-5.1)
[2017-12-03] MEDS: ATORVASTATIN 20 MG TAB PO SCH (08:17)
[2017-12-03] MEDS: ALLOPURINOL 100 MG TAB PO SCH ×2 (08:17→19:53)
[2017-12-03] MEDS: DOCUSATE SODIUM 100 MG CAP PO SCH (08:18)
[2017-12-03] MEDS: LOSARTAN POTASSIUM 25 MG TAB PO SCH (08:18)
[2017-12-03] MEDS: GABAPENTIN 100 MG CAP PO SCH ×3 (08:18→19:53)
[2017-12-03] MEDS: METOPROLOL SUCC 25MG EXT REL TAB PO SCH ×2 (08:18→19:54)
[2017-12-03] MEDS: PANTOprazole SOD 40 MG TAB PO SCH (08:18)
[2017-12-03] MEDS: MULTIVITAMIN TAB PO SCH (08:18)
[2017-12-03] MEDS: FINASTERIDE 5 MG TAB PO SCH (08:19)
[2017-12-03] MEDS: TAMSULOSIN HCL 0.4 MG CAP PO SCH (08:19)
[2017-12-03] MEDS: LIDODERM (LIDOCAINE) PATCH 5% TD SCH (08:19)
[2017-12-03] MEDS: ENOXAPARIN 40 MG/0.4 ML SYR SQ SCH (08:20)
[2017-12-03] MEDS: FERROUS SULFATE 325 MG TAB PO SCH (08:20)
[2017-12-03] MEDS: HYDROCODONE/ACETAMIN 5/325MG TAB PO PRN (08:35)
--- NOTE | 2017-12-03 08:37 | INFECT. DISEASE CONSULTATION ---
DATE OF CONSULTATION: 12/03/2017 HISTORY OF PRESENT ILLNESS: This is a 77-year-old gentleman who is admitted to the hospital with worsening low back pain radiating to the left lower extremity. Prior to H and P, he had recently had an outpatient MRI due to the same, which was reportedly negative. He continued to have deterioration and presented to the Emergency Room on the . On the , he had a repeat MRI, which shows L4-L5 diskitis and a questionable early abscess formation around the psoas muscle. He is also being followed by orthopedic surgery for potential OR. He was placed empirically on vancomycin and is tolerating this well. He has been afebrile since admission. He does have a leukocytosis of 12.8, which is increasing from admission. His blood cultures are pending at this time. He did receive 2 days of Zosyn on the and prior to blood cultures. A urine culture is growing enterococcus; however, his UA was unremarkable. On my examination, he states his back pain is somewhat better. He denies any fevers or chills. He denies chest pain, abdominal pain, or shortness of breath. His remaining review of systems is reviewed and unremarkable. PAST MEDICAL HISTORY: Significant for coronary artery disease, peripheral vascular disease, esophageal cancer with surgery, hypertension, BPH. He was intermittently doing straight catheterization prior to admission. He also has urine cultures from October growing enterococcus as well. PAST SURGICAL HISTORY: Significant for urologic procedures as above, CABG, carpal tunnel release, hernia repair, esophagectomy, and a TURP. ALLERGIES: There are no known drug allergies. FAMILY HISTORY: Noncontributory. SOCIAL HISTORY: Significant for history of tobacco use. There is no alcohol or drug use. CURRENT MEDICATIONS: Toprol-XL, Lopressor, vancomycin, iron, Neurontin, Percocet, Lidoderm patch, Colace, trazodone, Benadryl, Lovenox, allopurinol, aspirin, Lipitor, Proscar, Cozaar, multivitamins, Flomax, Protonix, Synthroid, and Tylenol. PHYSICAL EXAMINATION: VITAL SIGNS: He is afebrile, pulse 61, respiratory rate 17, blood pressure 107/46, oxygen saturation is 96% on CPAP. GENERAL: He is awake, alert, and oriented, in no acute distress. HEENT: Mucous membranes are dry. Extraocular muscles are intact. HEART: Regular. LUNGS: Clear, but decreased at the bases bilaterally. ABDOMEN: Soft, nontender, nondistended. EXTREMITIES: There is no edema. LABORATORY STUDIES: CBC today, white blood cell count 10.2, hemoglobin 10.8, platelets 248. Chemistry panel from yesterday, sodium 137, potassium 4.4, chloride 105, bicarbonate 23, BUN 25, creatinine 1.2, glucose 150. UA had trace leukocyte esterase, 5-10 wbc's and no bacteria. Urine culture is growing Enterococcus faecalis with resistance to gentamicin only. Blood cultures from the are negative. IMAGING: As above. ASSESSMENT AND PLAN: Lumbar diskitis with questionable early psoas abscess. He will remain on vancomycin pending additional culture results. If he has any surgical procedures done, intraoperative cultures should be obtained. We will follow along with you. Thank you for this consultation.
[2017-12-03] MEDS ORDERED: NURSING VERBAL MED ORDER ONE (09:00)
--- NOTE | 2017-12-03 09:25 | ECHOCARDIOGRAM REPORT ---
*NOTICE TO RECEIVING CONSTITUTION PARTY AGENCY This information is strictly Confidential and protected under [place] law. [place] law prohibits you from making any further disclosure of this information unless further disclosure is expressly permitted by the written consent of the person to whom it pertains or is authorized by law. A general authorization for the release of medical or other information is not sufficient for this purpose. Hospital accepts no responsibility if the information is made available to any other person, INCLUDING THE PATIENT. Interpretation Summary * Name: ADELAIDE ESQUIVEL Study Date: 12/03/2017 07:23 AM BP: 107/46 mmHg * Patient Location: C.2T\S\S238\S\1 HR: 61 * : 1940 (M/d/yyyy) Gender: Male Height: 72 in * Age: 77 yrs Ethnicity: [place] Weight: 212 lb * Ordering Physician: Clemente Guajardo * Referring Physician: Self, Referred * Performed By: Keri Mcgarry RDCS * * Reason For Study: A-Fib * BSA: 2.2 m2 * -- Conclusions -- * Compared to previous study of 03/31/17: moderate mitral regurgitation is now present. * Normal LV chamber size with mild concentric LVH. * Normal LV systolic function, EF 55-60%. * No segmental left ventricular wall motion abnormalities are noted. * Grade II diastolic dysfunction. * Aortic valve sclerosis mild, without significant aortic valvular stenosis. * Moderate aortic valve regurgitation is present. * The aortic regurgitation jet is eccentric coursing across the anterior mitral valve leaflet. * The jet is impinging the anterior motion of the leaflet. * Moderate mitral regurgitation with a posteriorly directed jet. * Moderate left atrial enlargement. * Mild aortic root enlaregement. Procedure Details * A complete two-dimensional transthoracic echocardiogram was performed (2D, M-mode, Doppler and color flow Doppler). Left Ventricle * The left ventricle is normal in size. * There is mild concentric left ventricular hypertrophy. * Ejection Fraction = 55-60%. * Left ventricular systolic function is normal. * No segmental left ventricular wall motion abnormalities are noted. * The left ventricular wall motion is normal. Right Ventricle * The right ventricular cavity size is normal (basal dimension <4.2 cm in right ventricular apical 4-chamber view). * The right ventricular systolic function is normal as assessed by tricuspid annular plane systolic excursion (TAPSE) (normal >1.5 cm). Atria * The left atrium is moderately dilated. * Right atrial size is normal. * No ASD detected; PFO is not assessed. Mitral Valve * The mitral valve anatomy is normal. * There is no mitral valve stenosis. * There is mild to moderate mitral regurgitation. * The mitral regurgitant jet is posteriorly directed, which is consistent with anterior leaflet pathology. Tricuspid Valve * The tricuspid valve is normal in structure and function. Aortic Valve * The aortic valve is trileaflet. * Aortic valve sclerosis mild, without significant aortic valvular stenosis. * Aortic stenosis is absent. * Moderate aortic valve regurgitation is present. The aortic regurgitation jet is eccentric coursing across the anterior mitral valve leaflet. The jet is impinging the anterior motion of the leaflet. Pulmonic Valve * The pulmonary valve is not well seen, but the Doppler examination is normal without significant regurgitation or stenosis. Great Vessels * Mild aortic root dilatation. Pericardium/Pleural * There is no pericardial effusion. Left Ventricular Diastolic Function * Diastolic dysfunction, Grade II (pseudonormalization pattern). MMode 2D Measurements and Calculations IVSd 1.2 cm LVIDd 6.1 cm LVIDs 4.2 cm LVPWd 1.3 cm IVS/LVPW 0.91 FS 30.5 % EDV(Teich) 186.5 ml ESV(Teich) 80.3 ml EF(Teich) 57.0 % EDV(cubed) 226.3 ml ESV(cubed) 76.1 ml EF(cubed) 66.4 % LV mass(C)d 344.6 grams LV mass(C)dI 157.8 grams/m\S\2 SV(Teich) 106.2 ml SI(Teich) 48.6 ml/m\S\2 SV(cubed) 150.2 ml SI(cubed) 68.8 ml/m\S\2 Ao root diam 4.2 cm Ao root area 13.7 cm\S\2 ACS 2.3 cm LA dimension 4.8 cm asc Aorta Diam 3.5 cm LA/Ao 1.1 LVOT diam 2.2 cm LVOT area 3.8 cm\S\2 LVAd ap4 39.0 cm\S\2 LVLd ap4 8.7 cm EDV(MOD-sp4) 144.4 ml EDV(sp4-el) 148.8 ml LVAs ap4 22.4 cm\S\2 LVLs ap4 6.5 cm ESV(MOD-sp4) 64.0 ml ESV(sp4-el) 65.4 ml EF(MOD-sp4) 55.7 % EF(sp4-el) 56.1 % LVAd ap2 32.0 cm\S\2 LVLd ap2 7.8 cm EDV(MOD-sp2) 107.0 ml EDV(sp2-el) 111.7 ml LVAs ap2 18.7 cm\S\2 LVLs ap2 6.9 cm ESV(MOD-sp2) 41.7 ml ESV(sp2-el) 42.6 ml EF(MOD-sp2) 61.0 % EF(sp2-el) 61.9 % LVLd %diff -11.30 % EDV(MOD-bp) 132.7 ml LVLs %diff 6.2 % ESV(MOD-bp) 54.0 ml EF(MOD-bp) 59.3 % SV(MOD-sp4) 80.4 ml SI(MOD-sp4) 36.8 ml/m\S\2 SV(MOD-sp2) 65.3 ml SI(MOD-sp2) 29.9 ml/m\S\2 SV(MOD-bp) 78.7 ml SI(MOD-bp) 36.0 ml/m\S\2 SV(sp4-el) 83.4 ml SI(sp4-el) 38.2 ml/m\S\2 SV(sp2-el) 69.1 ml SI(sp2-el) 31.6 ml/m\S\2 Doppler Measurements and Calculations MV E max chelo 99.8 cm/sec MV A max chelo 38.3 cm/sec MV E/A 2.6 MV dec time 0.27 sec Ao V2 max 150.1 cm/sec Ao max PG 9.0 mmHg Ao max PG (full) 2.4 mmHg CARLENE(V,A) 3.3 cm\S\2 CARLENE(V,D) 3.3 cm\S\2 AI max chelo 325.7 cm/sec AI max PG 42.4 mmHg AI dec slope 248.6 cm/sec\S\2 AI P1/2t 383.7 msec LV V1 max PG 6.6 mmHg LV V1 max 128.8 cm/sec MR max chelo 522.8 cm/sec MR max PG 109.3 mmHg MR mean chelo 421.1 cm/sec MR mean PG 78.9 mmHg MR VTI 195.0 cm PA V2 max 93.2 cm/sec PA max PG 3.5 mmHg PA acc slope 310.6 cm/sec\S\2 PA acc time 0.19 sec PI end-d chelo 109.6 cm/sec TR max chelo 250.4 cm/sec PA pr(Accel) -8.50 mmHg
--- NOTE | 2017-12-03 11:53 | Progress Note ---
Progress Note Date of Service Dec 03, 2017. Progress Note Patient noting some modest improvement of his back pain and leg symptoms. He is slowly beginning to ambulate and tolerate sitting in a chair. I had a long discussion today with the and the patient regarding findings on the MRI and CAT scan. Again he will hopefully be able to be managed nonoperatively with appropriate antibiotics and resolution of his infection. I am hoping that throughout the week he will increase his ability to ambulate and his pain will be better and better controlled as the infection is treated. He does understand that if he continues to decline however radicular symptoms are unremitting we may need to consider debridement facetectomy L4-5 on the left.
[2017-12-03] MEDS ORDERED: AMIODARONE 200 MG TAB PO ONE ×2 (12:30→14:00)
--- NOTE | 2017-12-03 15:40 | Progress Note ---
Medicine Progress Note Date & Time of Visit: Dec 03, 2017 at 15:33. Subjective Pt was seen and examined Lying in bed with no distress Pt said that pain seem to improve he said that he was able to move around today Denies any chest pain, palpitation, dizziness and SOB Objective Last 8 Hrs Date Time Temp Pulse Resp B/P (MAP) Pulse Ox O2 Delivery O2 Flow Rate FiO2 12/03/17 15:07 37.6 58 20 121/60 (80) 96 Room Air 12/03/17 13:37 37.4 61 20 108/54 (72) 93 Room Air 12/03/17 12:50 37.1 63 18 101/55 (70) 94 Room Air 12/03/17 08:02 36.6 61 20 133/66 (88) 95 Room Air 12/03/17 08:00 Room Air Physical Exam: General- No acute distress Head- atraumatic Eyes- PERRL, EOMI ENT- oropharynx clear Neck- supple, no JVD Lungs- No acute distress Heart- Regular Abdomen- normal bowel sounds, soft Extremities- no calf tenderness Neuro- alert, oriented x 3; PERRL, EOMI Skin- warm & dry Laboratory Results: Last 24 Hours Test 12/02/17 19:20 12/03/17 06:40 Potassium Level 4.1 mmol/L 4.1 mmol/L Magnesium Level 1.9 mg/dl Troponin I < 0.015 ng/ml White Blood Count 10.29 K/uL Red Blood Count 3.22 M/uL Hemoglobin 10.8 g/dL Hematocrit 32.8 % Mean Corpuscular Volume 101.9 fL Mean Corpuscular Hemoglobin 33.5 pg Mean Corpuscular Hemoglobin Concent 32.9 g/dl Platelet Count 248 K/uL Mean Platelet Volume 11.2 fL Neutrophils (%) (Auto) 71.4 % Lymphocytes (%) (Auto) 17.0 % Monocytes (%) (Auto) 8.1 % Eosinophils (%) (Auto) 2.4 % Basophils (%) (Auto) 0.6 % Neutrophils # (Auto) 7.35 K/uL Lymphocytes # (Auto) 1.75 K/uL Monocytes # (Auto) 0.83 K/uL Eosinophils # (Auto) 0.25 K/uL Basophils # (Auto) 0.06 K/uL RDW Standard Deviation 51.8 fL RDW Coefficient of Variation 13.8 % Immature Granulocyte % (Auto) 0.5 % Immature Granulocyte # (Auto) 0.05 K/uL Sodium Level 138 mmol/L Chloride Level 107 mmol/L Carbon Dioxide Level 23 mmol/L Anion Gap 8.0 mmol/L Blood Urea Nitrogen 26 mg/dl Creatinine 1.09 mg/dl Est Creatinine Clear Calc Drug Dose 69.5 ml/min Estimated GFR () 76.0 Estimated GFR (Non- 65.6 BUN/Creatinine Ratio 23.8 Random Glucose 80 mg/dl Calcium Level 8.3 mg/dl Assessment & Plan Left Sided Lower Back Pain radiated to Left Lower Ext Might be related to sciatica? Outpt MRI showed on 12/02 no acute abnormalities identified. 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 No significant spinal canal stenosis at any level. Heterogeneous appearance of bone marrow signal with edematous changes in the endplates at several levels Received IV morphine and oxy with no relief sciatica Will increase oxycodone to 10mg Continue IV morphine Orthopedic consult PT/OT once pain alleviates Fall precaution 12/03 Pain improves today MRI with contrast done showed findings consistent with acute L4-L5 discitis. 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 Pain management on board Discussed case with Dr. Cabello recommended no interventional therapy for pain management or for biopsy of the osseous lesion due to UTI at this time. Continue gabapentin Steroid d/c due to possible infection Continue Hydrocodone 5-10 mg every 4 hours as needed for analgesia Orthopedic on board- Might need to consider decompression at the 4 5 level to address the severe radiculopathy if no improvement with abx Continue vanco ID consult Continue PT/OT Fall precaution MRI report 1. No acute abnormalities identified. 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 No significant spinal canal stenosis at any level. 2. Neural foraminal narrowing of different degree at several levels, most significant, moderate, in the left L4-5 foramen. 3. Heterogeneous appearance of bone marrow signal with edematous changes in the endplates at several levels is more likely related to degenerative disc disease. Please note that presence of small osseous metastatic lesions cannot be excluded based on this examination alone in this patient with known prior history of cancer. 4. Mild aneurysmal dilatation of the infrarenal aorta, which measures up to 3.4 cm in diameter (3.1 cm in 2008). Brief Episode of Afib with RVR Last time was found on Afib was 2007 EKG showed Afib with HR 120's Converted back to NSR with rate control On carvedilol 3.125mg BID Received metoprolol 25mg Will start on metoprolol 25 mg BID Check ECHO in am CHADs-vasc score 2 for HTN and age Will defer to cardiology about abx Had never been on anticoagulant in the past Continue aspirin for now If back to Afib with RVR will start on cardizem drip and initiate anticoagulant Continue monitor in tele 12/03 rate control on NSR Starting on amiodarone case discussed with cardiology, no anticoagulant continue metoprolol 12.5 mg BID ECHO * Compared to previous study of 03/31/17: moderate mitral regurgitation is now present. * Normal LV chamber size with mild concentric LVH. * Normal LV systolic function, EF 55-60%. * No segmental left ventricular wall motion abnormalities are noted. * Grade II diastolic dysfunction. * Aortic valve sclerosis mild, without significant aortic valvular stenosis. * Moderate aortic valve regurgitation is present. * The aortic regurgitation jet is eccentric coursing across the anterior mitral valve leaflet. * The jet is impinging the anterior motion of the leaflet. * Moderate mitral regurgitation with a posteriorly directed jet. * Moderate left atrial enlargement. * Mild aortic root enlaregement. Bacteremia Blood cx positive for gram positive cocci Continue vanco IV Repeat blood cx Continue monitor UTI possible due to intermittent self cath Urine cx positive for enterococcus faecalis Afebrile WBC mildly elevated On Vanco for possible lumbar abscess that also covers for UTI Hyponatremia Na 137 Received NS Monitor BMP Stable BPH Continue flomax and proscar Stable CAD S/P coronary artery bypass grafting. Denies any chest pain Stable Hypothyroidism TSH wnl continue levothyroxine Stable Esophageal cancer S/P postsurgery Stable Hypertension BP stable. Anemia Hbg 10.8 today No signs of active bleeding Monitor CBC Stable DVT px Lovenox Code status Full code Current Inpatient Medications: Current Inpatient Medications Medications (Trade) Dose Ordered Sig/Fidel Route Start Time Stop Time Status Last Admin Dose Admin Lidocaine (Lidoderm Patch 5%) 1 patch QAM TD 12/01/17 08:00 12/31/17 08:59 12/03/17 08:19 1 PATCH Miscellaneous (Remove Lidoderm Patch) 1 ea DAILY@1999 N/A 11/30/17 15:00 12/30/17 14:59 12/02/17 20:06 1 EA Enoxaparin Sodium (Lovenox Inj) 40 mg Q24H SQ 11/30/17 08:00 12/30/17 07:59 12/03/17 08:20 40 MG Acetaminophen (Tylenol Tab) 650 mg Q4H PRN PO 11/30/17 01:45 12/30/17 01:44 Prochlorperazine Edisylate 5 mg/ Syringe 5 ml @ 5 mls/min Q6H PRN IV 11/30/17 01:45 12/30/17 01:44 12/02/17 14:55 5 MLS/MIN Allopurinol (Zyloprim Tab) 100 mg BID PO 11/30/17 08:00 12/30/17 08:59 12/03/17 08:17 100 MG Atorvastatin Calcium (Lipitor Tab) 20 mg QAM PO 11/30/17 08:00 12/30/17 08:59 12/03/17 08:17 20 MG Carvedilol (Coreg Tab) 3.125 mg BID PO 11/30/17 08:00 12/30/17 08:59 Future Hold 12/02/17 08:26 3.125 MG Finasteride (Proscar Tab) 5 mg QAM PO 11/30/17 08:00 12/30/17 08:59 12/03/17 08:19 5 MG Levothyroxine Sodium (Synthroid Tab) 175 mcg DAILYBB PO 11/30/17 06:30 12/30/17 06:29 12/03/17 06:05 175 MCG Losartan Potassium (coZAAR TAB) 25 mg QAM PO 11/30/17 08:00 12/30/17 08:59 12/03/17 08:18 25 MG Metoprolol Succinate (Toprol Xl Tab) 25 mg QAM PO 11/30/17 08:00 12/30/17 08:59 Future Hold 12/02/17 08:27 25 MG Multivitamins (Multivitamin Tab) 1 tab QAM PO 11/30/17 08:00 12/30/17 08:59 12/03/17 08:18 1 TAB Nitroglycerin (Nitrostat Tab) 0.4 mg PRN PRN UT 11/30/17 02:00 12/30/17 01:59 Tamsulosin HCl (Flomax Cap) 0.4 mg QAM PO 11/30/17 08:00 12/30/17 08:59 12/03/17 08:19 0.4 MG Trazodone HCl (Desyrel Tab) 50 mg HS PO 11/30/17 21:00 12/30/17 20:59 12/02/17 20:07 50 MG Pantoprazole Sodium (Protonix Tab) 40 mg QAM PO 11/30/17 08:00 12/30/17 08:59 12/03/17 08:18 40 MG Docusate Sodium (coLACE CAP) 100 mg DAILY PO 12/01/17 08:00 12/31/17 07:59 12/03/17 08:18 100 MG Diphenhydramine HCl (Benadryl Syrup) 12.5 mg Q8H PRN PO 11/30/17 12:00 12/30/17 11:59 11/30/17 13:16 12.5 MG Acetaminophen/ Hydrocodone Bitart (Rogers 5/325 Tab) 1 tab Q4H PRN PO 12/01/17 10:15 12/15/17 10:14 12/03/17 08:35 1 TAB Acetaminophen/ Hydrocodone Bitart (Rogers 7.5/325 Tab) 1 tab Q6H PRN PO 12/01/17 10:15 12/15/17 10:14 12/02/17 14:00 1 TAB Gabapentin (Neurontin Cap) 100 mg TID PO 12/01/17 14:00 12/31/17 13:59 12/03/17 12:43 100 MG Ferrous Sulfate (Feosol Tab) 325 mg QAM PO 12/02/17 08:00 01/01/18 07:59 12/03/17 08:20 325 MG Gadobutrol (Gadavist) 9.5 mmol UD PRN IV 12/01/17 18:30 12/05/17 18:29 Vancomycin HCl (Consult) 1 ea UD PRN N/A 12/01/17 19:30 12/31/17 19:29 Vancomycin HCl 1500 mg/Sodium Chloride 530 ml @ 200 mls/hr Q16H IV 12/02/17 12:00 01/13/18 11:59 12/03/17 03:53 200 MLS/HR Metoprolol Tartrate (Lopressor Iv) 2.5 mg Q6H PRN IV 12/02/17 18:45 01/01/18 18:44 Metoprolol Succinate (Toprol Xl Tab) 12.5 mg BID PO 12/03/17 09:00 01/01/18 20:59 12/03/17 08:18 12.5 MG Aspirin (Ecotrin Tab) 162 mg HS PO 12/03/17 21:00 01/02/18 20:59 Amiodarone HCl (Cordarone Tab) 400 mg TID PO 12/03/17 18:00 01/02/18 17:59
--- NOTE | 2017-12-03 17:10 | CARDIOLOGY CONSULTATION ---
DATE OF CONSULTATION: 12/03/2017 CONSULTATION REQUESTED BY: Dr. Guajardo. REASON FOR CONSULTATION: Transient atrial fibrillation. HISTORY OF PRESENT ILLNESS: Mr. Persaud is a very pleasant 77-year-old gentleman who normally follows with Dr. Weiner of our cardiology practice for his history of coronary artery disease. The patient originally presented to [facility] on 11/29/2017 with complaints of worsening back pain. The patient was initially admitted to the orthopedic floor where he was evaluated by pain management as well as a spine surgery. The patient's blood cultures came back positive. He does have history of recently diagnosed diskitis and recently discovered psoas abscess and he was started on broad-spectrum antibiotics. Incidentally during routine vitals checked on 12/02/2017 as patient was found to be tachycardic in the 120s, an EKG was performed which showed atrial fibrillation with rapid ventricular response. The patient had been in normal sinus rhythm upon presentation and he was transferred to telemetry unit for further care. Upon arrival to the telemetry, he was back in normal sinus rhythm and has remained in sinus rhythm overnight. Clinically, the patient states his only complaint is that of continued back pain which is improving and denies any chest pain, shortness of breath, palpitations, lightheadedness, dizziness, or syncope. Of note, the patient did have an atrial fibrillation approximately 10 years ago at which time he was symptomatic, feeling very tired and winded. PAST SURGICAL HISTORY: 1. Coronary artery bypass grafting surgery x4 in 2007 with a GIFFORD to the LAD, vein graft to the right coronary, vein graft to the ramus and vein graft to the obtuse marginal. 2. Prostatectomy. 3. Hernia repair. 4. Colonoscopy. 5. Partial esophagectomy. 6. Hernia repair. 7. Multiple upper endoscopies. 8. Carpal tunnel surgery. MEDICAL ILLNESSES: 1. Coronary artery disease. 2. Brief episode of atrial fibrillation in 2007. 3. History of esophageal cancer, status post partial esophagectomy. 4. Stage III chronic kidney disease. 5. Gout. 6. Hypertension. 7. Abdominal aortic aneurysm. 8. Aortic regurgitation. 9. Obstructive sleep apnea. 10. Neurogenic bladder. FAMILY HISTORY: Noncontributory. SOCIAL HISTORY: The patient has a remote tobacco use history, has not smoked since 1982. Denies any alcohol or recreational drug use. He is and lives at home with his . REVIEW OF SYSTEMS: As per HPI, all other review of systems reviewed and negative at this time. ALLERGIES: MORPHINE. MEDICATIONS: Currently, 1. Aspirin 162 mg daily. 2. Metoprolol succinate 12.5 mg b.i.d. 3. Vancomycin. 4. Gabapentin. 5. [place] as needed. 6. Lidoderm patch. 7. Allopurinol b.i.d. 8. Atorvastatin 20 mg daily. 9. Proscar 5 mg daily. 10. Losartan 25 mg daily. 11. Flomax daily. PHYSICAL EXAMINATION: VITALS: Temperature 36.6, pulse 61, respiratory rate 12, blood pressure 133/66. GENERAL: Awake, alert, oriented x3, in no acute distress. HEENT: Normocephalic, atraumatic. Pupils equal, round, reactive to light and accommodation. Extraocular muscles intact. Anicteric sclerae. Moist mucous membranes. NECK: No JVD, no bruit. CARDIOVASCULAR: Regular. Positive S4. Normal S1 and S2. No S3. 3/6 holosystolic ejection murmur greatest at the left sternal border, midclavicular line with radiation to the left axilla. No rubs. PULMONARY: Clear to auscultation bilaterally. No rales, rhonchi, or wheezing. ABDOMEN: Bowel sounds x4, soft. No rebound, guarding, tenderness. No organomegaly. EXTREMITIES: No clubbing, cyanosis or edema. +2 pedal pulses bilaterally. SKIN: Warm and dry. TEST RESULTS: A 12-lead EKG performed 12/02 at 1400 independently reviewed at this time shows atrial fibrillation with rapid ventricular response at 121 beats per minute. Telemetry monitoring shows patient to be in normal sinus rhythm since admission to telemetry. IMPRESSION: 1. Paroxysmal atrial fibrillation. 2. Back pain with diskitis and psoas abscess. 3. Remote history of coronary artery disease, status post coronary artery bypass graft. 4. Moderate aortic regurgitation causing mitral regurgitation. 5. Moderate left atrial enlargement. RECOMMENDATIONS: It was my pleasure to see Mr. Persaud in consultation today. The pathophysiology and treatment options for atrial fibrillation once again discussed with the patient in great length. He was counseled given the very transient nature of his atrial fibrillation on this event. I do believe the most prudent course of action would be for rhythm control with oral amiodarone and holding off anticoagulation at this time given his ongoing back issues and possible need for surgery. So at this time, we will start him on amiodarone 400 mg 3 times a day and will likely decrease to b.i.d. after a few days. I would like to have him remain on telemetry at least overnight and then will likely discharge him back to the orthopedic floor in the a.m. at some point.
[2017-12-03] MEDS: AMIODARONE 200 MG TAB PO SCH ×2 (17:12→23:15)
[2017-12-03] MEDS ORDERED: VANCOMYCIN TROUGH ONE (19:30)
[2017-12-03] MEDS: ASPIRIN 81 MG ECTAB PO SCH (19:52)
[2017-12-03] MEDS: TRAZODONE HCL 50 MG TAB PO SCH (19:53)
[2017-12-04] VITALS (9 sets, daily range): BP systolic 130–155; BP diastolic 58–65; PULSE 55–64; TEMP 36.6–37; O2SAT 93–96
[2017-12-04] MEDS ORDERED: VANCOMYCIN TROUGH ONE (01:30)
[2017-12-04] MEDS: LEVOTHYROXINE 175 MCG TAB PO SCH (05:55)
[2017-12-04] MEDS: HYDROCODONE/ACETAMIN 5/325MG TAB PO PRN (06:14)
[2017-12-04 06:36] LABS: BASO % 0.6 %; BASO ABS # 0.06 K/uL (0-0.2); EOS % 3.1 %; HEMATOCRIT 35.1 % (42-52); HEMOGLOBIN 11.8 g/dL (14.0-18.0); IG# 0.09 K/uL (0.00-0.02); LYMPH % 15.9 %; LYMPH ABS # 1.52 K/uL (1.2-3.4); MEAN CELL VOLUME 100.6 fL (80-100); MEAN CORPUSCULAR HEMOGLOBIN 33.8 pg (25-34); MEAN CORPUSCULAR HGB CONC 33.6 g/dl (32-36); MEAN PLATELET VOLUME 11.1 fL (7.4-10.4); MONO % 9.1 %; MONO ABS # 0.87 K/uL (0.11-0.59); NEUT % 70.4 %; NEUT ABS # 6.74 K/uL (1.4-6.5); PLATELET COUNT 262 K/uL (130-400); RED CELL DISTRIBUTION WIDTH CV 13.7 % (11.5-14.5); WHITE BLOOD COUNT 9.58 K/uL (4.8-10.8)
[2017-12-04] MEDS ORDERED: METHYLPREDNISOLONE 4 MG TAB PO SCH (07:00)
[2017-12-04] MEDS: AMIODARONE 200 MG TAB PO SCH ×3 (07:41→19:30)
[2017-12-04] MEDS: PANTOprazole SOD 40 MG TAB PO SCH (07:42)
[2017-12-04] MEDS: METOPROLOL SUCC 25MG EXT REL TAB PO SCH ×2 (07:42→19:29)
[2017-12-04] MEDS: ALLOPURINOL 100 MG TAB PO SCH ×2 (07:43→19:30)
[2017-12-04] MEDS: ATORVASTATIN 20 MG TAB PO SCH (07:43)
[2017-12-04] MEDS: MULTIVITAMIN TAB PO SCH (07:44)
[2017-12-04] MEDS: LOSARTAN POTASSIUM 25 MG TAB PO SCH (07:44)
[2017-12-04] MEDS: ENOXAPARIN 40 MG/0.4 ML SYR SQ SCH (07:45)
[2017-12-04] MEDS: GABAPENTIN 100 MG CAP PO SCH ×3 (07:45→19:29)
[2017-12-04] MEDS: DiphenhydrAMINE HCL 12.5MG/5 ML UDC PO PRN (07:46)
[2017-12-04] MEDS: FINASTERIDE 5 MG TAB PO SCH (07:49)
[2017-12-04] MEDS: FERROUS SULFATE 325 MG TAB PO SCH (07:49)
[2017-12-04] MEDS: DOCUSATE SODIUM 100 MG CAP PO SCH (07:49)
[2017-12-04] MEDS: TAMSULOSIN HCL 0.4 MG CAP PO SCH (07:49)
[2017-12-04] MEDS: LIDODERM (LIDOCAINE) PATCH 5% TD SCH (07:50)
--- NOTE | 2017-12-04 10:50 | Pharmacy Progress Note ---
Pharmacy Abx Dose Short Note Date of Service Dec 04, 2017. Assessment & Plan Assessment 77 year old male receiving Vancomycin 1500mg IV Q16H for treatment of UTI/ bacteremia and possible psoas abscess. Day # 4 of antimicrobial therapy. Item Value Date Time Vancomycin Level Trough 15.9 mcg/ml 12/03/17 2001 Plan Vancomycin * Trough level of 15.9 mcg/mL is therapeutic for indication. * Continue dose of 1500mg mg IV every 16 hours * Goal trough level 15 to 20 mcg/mL * Trough level ordered for: 12/06/2017 * Will access renal function with AM labs on 12/05 and draw trough sooner if indicated Pharmacy will continue to follow and will adjust dose/frequency as necessary. Thank you.
--- NOTE | 2017-12-04 10:57 | Cardiology Follow-Up ---
Subjective Subjective Date of Service: Dec 04, 2017. Pt evaluation today including: conversation w/ patient, physical exam, chart review, lab review, review of studies, review of inpatient medication list Additional Details: Pt seen and examined, states that he feels horrible this AM. Constipated, nauseated, tired and back pain. Denies cardiac complaints of cp, sob, palpitations, lightheadedness or dizziness. Tele reviewed: sinus rhythm without recurrence of atrial fibrillation. Problem List Medical Problems: (1) Back pain Status: Acute (2) Bladder distention Status: Acute (3) Hypothyroidism Status: Acute (4) Pneumonia Status: Acute (5) Pneumonia Status: Acute (6) UTI (urinary tract infection) Status: Acute (7) Weakness Status: Acute Review of Systems Cardiac: No see HPI, No chest pain, No orthopnea, No PND, No edema, No claudication, No palpitations, No problem reported Objective Vital Signs Last Vital Signs Documentation Date Time Temp Pulse Resp B/P (MAP) Pulse Ox O2 Delivery O2 Flow Rate FiO2 12/04/17 08:00 CPAP 12/04/17 07:37 36.9 60 18 148/64 (92) 94 Physical Exam: General Appearance: WD/WN, + mild distress Eyes: bilateral eyes normal inspection, bilateral eyes PERRL, bilateral eyes EOMI ENT: normal ENT inspection, hearing grossly normal Neck: supple, no adenopathy, thyroid normal, no JVD, no carotid bruits, trachea midline Respiratory/Chest: chest non-tender, lungs clear, normal breath sounds, no respiratory distress, no accessory muscle use Cardiovascular: regular rate, rhythm, no edema, no JVD, no murmur, + gallop/S4 Abdomen: normal bowel sounds, non tender, soft, no organomegaly, no pulsatile mass Extremities: normal inspection, no pedal edema, no calf tenderness Neurologic/Psychiatric: jockey agent II-XII nml as tested, no motor/sensory deficits, alert, normal mood/affect, oriented x 3 Skin: normal color, warm/dry, no rash Lymphatic: no adenopathy Assessment and Plan 1. PAF in the setting of severe pain started on po amio load tolerating well has remained in sinus will decrease amio to 400mg bid on 08/05 ok to d/c tele and transfer to ortho floor from cardiac perspective will check daily ecg's. no role for anticoagulation at this time 2. CAD stable
--- NOTE | 2017-12-04 11:01 | Progress Note ---
Subjective Date of Service: Dec 04, 2017. Subjective Pt evaluation today including: conversation w/ patient, physical exam, chart review, lab review, review of studies pt seen in followup, no surgery planned. now with 2/2 + blood cultures gpc. urine with E. faecalis. tolerating vanco. afebrile. all remaining ros reviewed and are negative. Problem List Medical Problems: (1) Back pain Status: Acute (2) Bladder distention Status: Acute (3) Hypothyroidism Status: Acute (4) Pneumonia Status: Acute (5) Pneumonia Status: Acute (6) UTI (urinary tract infection) Status: Acute (7) Weakness Status: Acute Objective Vital Signs Date Time Temp Pulse Resp B/P (MAP) Pulse Ox O2 Delivery O2 Flow Rate FiO2 12/04/17 08:00 CPAP 12/04/17 07:37 36.9 60 18 148/64 (92) 94 CPAP 12/04/17 03:46 36.6 61 16 137/62 (87) 94 12/03/17 23:59 CPAP 12/03/17 23:17 36.9 62 16 148/68 (94) 95 Room Air 12/03/17 19:02 36.5 66 18 159/65 (96) 93 Room Air 12/03/17 16:00 Room Air 12/03/17 15:07 37.6 58 20 121/60 (80) 96 Room Air 12/03/17 13:37 37.4 61 20 108/54 (72) 93 Room Air 12/03/17 12:50 37.1 63 18 101/55 (70) 94 Room Air Physical Exam General Appearance: WD/WN, no apparent distress Eyes: normal inspection, EOMI Neck: supple Respiratory/Chest: lungs clear, normal breath sounds, no respiratory distress Cardiovascular: regular rate, rhythm, no edema Abdomen: soft Extremities: non-tender, no pedal edema Neurologic/Psychiatric: alert Skin: normal color Laboratory Results Item Value Date Time Urine Culture - Final Complete 11/29/17 2240 Urine , Clean Catch Enterococcus Faecalis Blood Culture - Preliminary Resulted 12/01/171946 Blood Gram Positive Cocci Blood Culture - Preliminary Resulted 12/01/171999 Blood Gram Positive Cocci Last 24 Hours Test 12/03/17 16:21 12/03/17 20:01 12/04/17 06:05 Bedside Glucose 114 mg/dl Vancomycin Level Trough 15.9 mcg/ml White Blood Count 9.58 K/uL Red Blood Count 3.49 M/uL Hemoglobin 11.8 g/dL Hematocrit 35.1 % Mean Corpuscular Volume 100.6 fL Mean Corpuscular Hemoglobin 33.8 pg Mean Corpuscular Hemoglobin Concent 33.6 g/dl Platelet Count 262 K/uL Mean Platelet Volume 11.1 fL Neutrophils (%) (Auto) 70.4 % Lymphocytes (%) (Auto) 15.9 % Monocytes (%) (Auto) 9.1 % Eosinophils (%) (Auto) 3.1 % Basophils (%) (Auto) 0.6 % Neutrophils # (Auto) 6.74 K/uL Lymphocytes # (Auto) 1.52 K/uL Monocytes # (Auto) 0.87 K/uL Eosinophils # (Auto) 0.30 K/uL Basophils # (Auto) 0.06 K/uL RDW Standard Deviation 50.0 fL RDW Coefficient of Variation 13.7 % Immature Granulocyte % (Auto) 0.9 % Immature Granulocyte # (Auto) 0.09 K/uL Assessment and Plan (1) Gram positive septicemia Assessment & Plan: continue vanco for now, follow cultures. repeat pending. (2) Vertebral osteomyelitis
[2017-12-04] MEDS: VANCOMYCIN IV 1,500 MG in SODIUM CHLORIDE 0.9% 500ML 500 ML IV SCH (13:02)
--- NOTE | 2017-12-04 17:53 | Progress Note ---
Medicine Progress Note Date & Time of Visit: Dec 04, 2017 at 17:32. Subjective Pt was seen an examined Lying in bed with no distress with at bedside I had a long discussion with patient and his I logged in the computer and reviewed all the labs, cultures and I/O with and she took note as well Pt said that his pain seems to get better He is able to lift his legs up He does not like to be in telemetry because it is too noisy He wants to get back in the ortho floor He said that he has not had a bowel movement in the last few days requested for him to get Relistor I explained to that let try Dulcolax and miralax first, then if he does not work that we can try the Relistor Denies any chest pain, palpitation, dizziness and SOB Objective Last 8 Hrs Date Time Temp Pulse Resp B/P (MAP) Pulse Ox O2 Delivery O2 Flow Rate FiO2 12/04/17 16:00 95 Room Air 12/04/17 15:11 36.7 56 18 133/58 (83) 95 Room Air 12/04/17 14:45 36.6 61 18 94 12/04/17 12:11 36.7 64 18 155/64 (94) 93 Room Air Physical Exam: General- No acute distress Head- atraumatic Eyes- PERRL, EOMI ENT- oropharynx clear Neck- supple, no JVD Lungs- No acute distress Heart- Regular Abdomen- normal bowel sounds, soft Extremities- no calf tenderness Neuro- alert, oriented x 3; PERRL, EOMI Skin- warm & dry Laboratory Results: Last 24 Hours Test 12/03/17 20:01 12/04/17 06:05 Vancomycin Level Trough 15.9 mcg/ml White Blood Count 9.58 K/uL Red Blood Count 3.49 M/uL Hemoglobin 11.8 g/dL Hematocrit 35.1 % Mean Corpuscular Volume 100.6 fL Mean Corpuscular Hemoglobin 33.8 pg Mean Corpuscular Hemoglobin Concent 33.6 g/dl Platelet Count 262 K/uL Mean Platelet Volume 11.1 fL Neutrophils (%) (Auto) 70.4 % Lymphocytes (%) (Auto) 15.9 % Monocytes (%) (Auto) 9.1 % Eosinophils (%) (Auto) 3.1 % Basophils (%) (Auto) 0.6 % Neutrophils # (Auto) 6.74 K/uL Lymphocytes # (Auto) 1.52 K/uL Monocytes # (Auto) 0.87 K/uL Eosinophils # (Auto) 0.30 K/uL Basophils # (Auto) 0.06 K/uL RDW Standard Deviation 50.0 fL RDW Coefficient of Variation 13.7 % Immature Granulocyte % (Auto) 0.9 % Immature Granulocyte # (Auto) 0.09 K/uL Assessment & Plan Left Sided Lower Back Pain radiated to Left Lower Ext Might be related to sciatica? Outpt MRI showed on 12/02 no acute abnormalities identified. 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 No significant spinal canal stenosis at any level. Heterogeneous appearance of bone marrow signal with edematous changes in the endplates at several levels Received IV morphine and oxy with no relief sciatica Will increase oxycodone to 10mg Continue IV morphine Orthopedic consult PT/OT once pain alleviates Fall precaution 12/04 Pain improves significantly Walk today with therapist Able to rise his legs up MRI with contrast done showed findings consistent with acute L4-L5 discitis. 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 Pain management on board Discussed case with Dr. Cabello recommended no interventional therapy for pain management or for biopsy of the osseous lesion due to UTI at this time. Continue gabapentin Steroid d/c due to possible infection Continue Hydrocodone 5-10 mg every 4 hours as needed for analgesia Orthopedic on board- Might need to consider decompression at the 4 5 level to address the severe radiculopathy if no improvement with abx Continue vanco as per ID ID consult Continue PT/OT Fall precaution MRI report 1. No acute abnormalities identified. 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 No significant spinal canal stenosis at any level. 2. Neural foraminal narrowing of different degree at several levels, most significant, moderate, in the left L4-5 foramen. 3. Heterogeneous appearance of bone marrow signal with edematous changes in the endplates at several levels is more likely related to degenerative disc disease. Please note that presence of small osseous metastatic lesions cannot be excluded based on this examination alone in this patient with known prior history of cancer. 4. Mild aneurysmal dilatation of the infrarenal aorta, which measures up to 3.4 cm in diameter (3.1 cm in 2008). Brief Episode of Afib with RVR Last time was found on Afib was 2007 EKG showed Afib with HR 120's Converted back to NSR with rate control On carvedilol 3.125mg BID Received metoprolol 25mg Will start on metoprolol 25 mg BID Check ECHO in am CHADs-vasc score 2 for HTN and age Will defer to cardiology about abx Had never been on anticoagulant in the past Continue aspirin for now If back to Afib with RVR will start on cardizem drip and initiate anticoagulant Continue monitor in tele 12/04 Rate control on NSR Amiodarone decreased to 400mg BID case discussed with cardiology, no anticoagulant continue metoprolol 12.5 mg BID Check EKG daily OK from cardiology standpoint to D/C telemetry ECHO * Compared to previous study of 03/31/17: moderate mitral regurgitation is now present. * Normal LV chamber size with mild concentric LVH. * Normal LV systolic function, EF 55-60%. * No segmental left ventricular wall motion abnormalities are noted. * Grade II diastolic dysfunction. * Aortic valve sclerosis mild, without significant aortic valvular stenosis. * Moderate aortic valve regurgitation is present. * The aortic regurgitation jet is eccentric coursing across the anterior mitral valve leaflet. * The jet is impinging the anterior motion of the leaflet. * Moderate mitral regurgitation with a posteriorly directed jet. * Moderate left atrial enlargement. * Mild aortic root enlaregement. Bacteremia Blood cx positive for gram positive cocci Continue vanco IV as per ID Repeat blood cx pending Continue monitor CKD stage 3 Creatine stable Continue monitor UTI possible due to intermittent self cath Urine cx positive for enterococcus faecalis Afebrile WBC mildly elevated On Vanco for possible lumbar abscess that also covers for UTI Hyponatremia Na 137 Received NS Monitor BMP Stable BPH Continue flomax and proscar Stable CAD S/P coronary artery bypass grafting. Denies any chest pain Stable Hypothyroidism TSH wnl continue levothyroxine Stable Esophageal cancer S/P postsurgery Stable Hypertension BP stable. Anemia Hbg 11.8 today No signs of active bleeding Monitor CBC Stable DVT px Lovenox Code status Full code Disposition D/C telemetry Current Inpatient Medications: Current Inpatient Medications Medications (Trade) Dose Ordered Sig/Fidel Route Start Time Stop Time Status Last Admin Dose Admin Lidocaine (Lidoderm Patch 5%) 1 patch QAM TD 12/01/17 08:00 12/31/17 08:59 12/04/17 07:50 1 PATCH Miscellaneous (Remove Lidoderm Patch) 1 ea DAILY@1999 N/A 11/30/17 15:00 12/30/17 14:59 12/03/17 19:51 1 EA Enoxaparin Sodium (Lovenox Inj) 40 mg Q24H SQ 11/30/17 08:00 12/30/17 07:59 12/04/17 07:45 40 MG Acetaminophen (Tylenol Tab) 650 mg Q4H PRN PO 11/30/17 01:45 12/30/17 01:44 12/04/17 16:48 650 MG Prochlorperazine Edisylate 5 mg/ Syringe 5 ml @ 5 mls/min Q6H PRN IV 11/30/17 01:45 12/30/17 01:44 12/02/17 14:55 5 MLS/MIN Allopurinol (Zyloprim Tab) 100 mg BID PO 11/30/17 08:00 12/30/17 08:59 12/04/17 07:43 100 MG Atorvastatin Calcium (Lipitor Tab) 20 mg QAM PO 11/30/17 08:00 12/30/17 08:59 12/04/17 07:43 20 MG Carvedilol (Coreg Tab) 3.125 mg BID PO 11/30/17 08:00 12/30/17 08:59 Future Hold 12/02/17 08:26 3.125 MG Finasteride (Proscar Tab) 5 mg QAM PO 11/30/17 08:00 12/30/17 08:59 12/04/17 07:49 5 MG Levothyroxine Sodium (Synthroid Tab) 175 mcg DAILYBB PO 11/30/17 06:30 12/30/17 06:29 12/04/17 05:55 175 MCG Losartan Potassium (coZAAR TAB) 25 mg QAM PO 11/30/17 08:00 12/30/17 08:59 12/04/17 07:44 25 MG Metoprolol Succinate (Toprol Xl Tab) 25 mg QAM PO 11/30/17 08:00 12/30/17 08:59 Future Hold 12/02/17 08:27 25 MG Multivitamins (Multivitamin Tab) 1 tab QAM PO 11/30/17 08:00 12/30/17 08:59 12/04/17 07:44 1 TAB Nitroglycerin (Nitrostat Tab) 0.4 mg PRN PRN UT 11/30/17 02:00 12/30/17 01:59 Tamsulosin HCl (Flomax Cap) 0.4 mg QAM PO 11/30/17 08:00 12/30/17 08:59 12/04/17 07:49 0.4 MG Trazodone HCl (Desyrel Tab) 50 mg HS PO 11/30/17 21:00 12/30/17 20:59 12/03/17 19:53 50 MG Pantoprazole Sodium (Protonix Tab) 40 mg QAM PO 11/30/17 08:00 12/30/17 08:59 12/04/17 07:42 40 MG Docusate Sodium (coLACE CAP) 100 mg DAILY PO 12/01/17 08:00 12/31/17 07:59 12/04/17 07:49 100 MG Diphenhydramine HCl (Benadryl Syrup) 12.5 mg Q8H PRN PO 11/30/17 12:00 12/30/17 11:59 11/30/17 13:16 12.5 MG Acetaminophen/ Hydrocodone Bitart ([place] 5/325 Tab) 1 tab Q4H PRN PO 12/01/17 10:15 12/15/17 10:14 12/04/17 06:14 1 TAB Acetaminophen/ Hydrocodone Bitart ([place] 7.5/325 Tab) 1 tab Q6H PRN PO 12/01/17 10:15 12/15/17 10:14 12/02/17 14:00 1 TAB Gabapentin (Neurontin Cap) 100 mg TID PO 12/01/17 14:00 12/31/17 13:59 12/04/17 13:04 100 MG Ferrous Sulfate (Feosol Tab) 325 mg QAM PO 12/02/17 08:00 01/01/18 07:59 12/04/17 07:49 325 MG Gadobutrol (Gadavist) 9.5 mmol UD PRN IV 12/01/17 18:30 12/05/17 18:29 Vancomycin HCl (Consult) 1 ea UD PRN N/A 12/01/17 19:30 12/31/17 19:29 Vancomycin HCl 1500 mg/Sodium Chloride 530 ml @ 200 mls/hr Q16H IV 12/02/17 12:00 01/13/18 11:59 12/04/17 13:02 200 MLS/HR Metoprolol Tartrate (Lopressor Iv) 2.5 mg Q6H PRN IV 12/02/17 18:45 01/01/18 18:44 Metoprolol Succinate (Toprol Xl Tab) 12.5 mg BID PO 12/03/17 09:00 01/01/18 20:59 12/04/17 07:42 12.5 MG Aspirin (Ecotrin Tab) 162 mg HS PO 12/03/17 21:00 01/02/18 20:59 12/03/17 19:52 162 MG Amiodarone HCl (Cordarone Tab) 400 mg TID PO 12/03/17 18:00 01/02/18 17:59 12/04/17 13:04 400 MG Polyethylene (Miralax Powder Packet) 17 gm ONE PRN PO 12/04/17 17:15 01/03/18 17:14 Bisacodyl (Dulcolax Tab) 5 mg BID PRN PO 12/04/17 17:15 01/03/18 17:14
[2017-12-04] MEDS: BISACODYL 5 MG TABEC PO PRN (19:27)
[2017-12-04] MEDS: TRAZODONE HCL 50 MG TAB PO SCH (19:29)
[2017-12-04] MEDS: ASPIRIN 81 MG ECTAB PO SCH (19:31)
[2017-12-05] MEDS: VANCOMYCIN IV 1,500 MG in SODIUM CHLORIDE 0.9% 500ML 500 ML IV SCH ×2 (04:43→19:49)
[2017-12-05] MEDS ORDERED: METHYLPREDNISOLONE 4 MG TAB PO SCH (07:00)
[2017-12-05 07:15] LABS: BASO % 0.6 %; BASO ABS # 0.06 K/uL (0-0.2); EOS % 2.9 %; EOS ABS # 0.27 K/uL (0-0.5); HEMATOCRIT 36.2 % (42-52); HEMOGLOBIN 12.3 g/dL (14.0-18.0); IG# 0.09 K/uL (0.00-0.02); LYMPH % 14.4 %; LYMPH ABS # 1.35 K/uL (1.2-3.4); MEAN CELL VOLUME 100.3 fL (80-100); MEAN CORPUSCULAR HEMOGLOBIN 34.1 pg (25-34); MEAN PLATELET VOLUME 11.4 fL (7.4-10.4); MONO % 8.2 %; MONO ABS # 0.77 K/uL (0.11-0.59); NEUT % 72.9 %; NEUT ABS # 6.86 K/uL (1.4-6.5); PLATELET COUNT 264 K/uL (130-400); RED CELL DISTRIBUTION WIDTH CV 13.6 % (11.5-14.5)
[2017-12-05 07:28] VITALS: BP 185/84; PULSE 78; TEMP 36.5; O2SAT 97
[2017-12-05 07:44] LABS: CREATININE 1.08 mg/dl (0.60-1.40)
[2017-12-05 08:00] VITALS: O2SAT 97
[2017-12-05] MEDS: PROCHLORPERAZINE INJ 5 MG in SYRINGE 4 ML IV PRN (08:10)
[2017-12-05] MEDS: POLYETHYLENE (MIRALAX) 17 GM PACK PO PRN (09:29)
[2017-12-05] MEDS: LEVOTHYROXINE 175 MCG TAB PO SCH (09:30)
[2017-12-05] MEDS: FERROUS SULFATE 325 MG TAB PO SCH (09:30)
[2017-12-05] MEDS: BISACODYL 5 MG TABEC PO PRN (09:30)
[2017-12-05] MEDS: ATORVASTATIN 20 MG TAB PO SCH (09:31)
[2017-12-05] MEDS: DOCUSATE SODIUM 100 MG CAP PO SCH (09:31)
[2017-12-05] MEDS: AMIODARONE 200 MG TAB PO SCH ×3 (09:31→19:51)
[2017-12-05] MEDS: LOSARTAN POTASSIUM 25 MG TAB PO SCH (09:31)
[2017-12-05] MEDS: ALLOPURINOL 100 MG TAB PO SCH ×2 (09:32→19:52)
[2017-12-05] MEDS: METOPROLOL SUCC 25MG EXT REL TAB PO SCH ×2 (09:33→19:52)
[2017-12-05] MEDS: PANTOprazole SOD 40 MG TAB PO SCH (09:33)
[2017-12-05] MEDS: MULTIVITAMIN TAB PO SCH (09:33)
[2017-12-05] MEDS: TAMSULOSIN HCL 0.4 MG CAP PO SCH (09:34)
[2017-12-05] MEDS: GABAPENTIN 100 MG CAP PO SCH ×3 (09:34→19:52)
[2017-12-05] MEDS: FINASTERIDE 5 MG TAB PO SCH (09:35)
[2017-12-05] MEDS: LIDODERM (LIDOCAINE) PATCH 5% TD SCH (09:35)
[2017-12-05] MEDS: ENOXAPARIN 40 MG/0.4 ML SYR SQ SCH (09:35)
[2017-12-05] MEDS: HYDROCODONE/ACETAMIN 5/325MG TAB PO PRN (11:55)
--- NOTE | 2017-12-05 13:17 | Progress Note ---
Subjective Date of Service: Dec 05, 2017. Subjective All blood cultures + to date, strep species, urine culture with E. faecalis. echo negative for veg. repeat cultures from today pending. afebrile. no plans for OR. wbc nml. remains on vanco, tolerating well. Problem List Medical Problems: (1) Back pain Status: Acute (2) Bladder distention Status: Acute (3) Hypothyroidism Status: Acute (4) Pneumonia Status: Acute (5) Pneumonia Status: Acute (6) UTI (urinary tract infection) Status: Acute (7) Weakness Status: Acute Objective Vital Signs Date Time Temp Pulse Resp B/P (MAP) Pulse Ox O2 Delivery O2 Flow Rate FiO2 12/05/17 08:00 97 Room Air 12/05/17 07:28 36.5 78 18 185/84 (117) 97 12/04/17 23:30 36.8 55 20 130/65 (86) 95 CPAP 12/04/17 21:18 Room Air 12/04/17 18:43 37.0 59 18 96 12/04/17 18:39 37.0 59 18 143/62 (89) 96 Room Air 12/04/17 16:00 95 Room Air 12/04/17 15:11 36.7 56 18 133/58 (83) 95 Room Air 12/04/17 14:45 36.6 61 18 94 Laboratory Results Last 24 Hours Test 12/05/17 06:57 White Blood Count 9.40 K/uL Red Blood Count 3.61 M/uL Hemoglobin 12.3 g/dL Hematocrit 36.2 % Mean Corpuscular Volume 100.3 fL Mean Corpuscular Hemoglobin 34.1 pg Mean Corpuscular Hemoglobin Concent 34.0 g/dl Platelet Count 264 K/uL Mean Platelet Volume 11.4 fL Neutrophils (%) (Auto) 72.9 % Lymphocytes (%) (Auto) 14.4 % Monocytes (%) (Auto) 8.2 % Eosinophils (%) (Auto) 2.9 % Basophils (%) (Auto) 0.6 % Neutrophils # (Auto) 6.86 K/uL Lymphocytes # (Auto) 1.35 K/uL Monocytes # (Auto) 0.77 K/uL Eosinophils # (Auto) 0.27 K/uL Basophils # (Auto) 0.06 K/uL RDW Standard Deviation 50.0 fL RDW Coefficient of Variation 13.6 % Immature Granulocyte % (Auto) 1.0 % Immature Granulocyte # (Auto) 0.09 K/uL Red Blood Cell Morphology Unremarkable Creatinine 1.08 mg/dl Est Creatinine Clear Calc Drug Dose 69.9 ml/min Estimated GFR () 76.9 Estimated GFR (Non- 66.3 Assessment and Plan (1) Gram positive septicemia Assessment & Plan: continue vanco, suspect E. faecalis, follow repeat cultures. if unable to clear bloodstream may need surgical intervention. will follow. (2) Vertebral osteomyelitis
[2017-12-05 14:23] VITALS: BP 145/74; PULSE 67
[2017-12-05 15:25] VITALS: BP 154/67; PULSE 62; TEMP 36.7; O2SAT 95
--- NOTE | 2017-12-05 16:23 | Progress Note ---
Medicine Progress Note Date & Time of Visit: Dec 05, 2017 at 16:11. Subjective Pt was seen and examined Lying in bed with no distress Pt said that pain is tolerable He said that he walks with therapist today Denies any chest pain, palpitation, dizziness, fever and SOB Objective Last 8 Hrs Date Time Temp Pulse Resp B/P (MAP) Pulse Ox O2 Delivery O2 Flow Rate FiO2 12/05/17 15:25 36.7 62 18 154/67 (96) 95 Room Air 12/05/17 14:23 67 145/74 (97) Physical Exam: General- No acute distress Head- atraumatic Eyes- PERRL, EOMI ENT- oropharynx clear Neck- supple, no JVD Lungs- No acute distress Heart- Regular Abdomen- normal bowel sounds, soft Extremities- no calf tenderness Neuro- alert, oriented x 3; PERRL, EOMI Skin- warm & dry Laboratory Results: Last 24 Hours Test 12/05/17 06:57 White Blood Count 9.40 K/uL Red Blood Count 3.61 M/uL Hemoglobin 12.3 g/dL Hematocrit 36.2 % Mean Corpuscular Volume 100.3 fL Mean Corpuscular Hemoglobin 34.1 pg Mean Corpuscular Hemoglobin Concent 34.0 g/dl Platelet Count 264 K/uL Mean Platelet Volume 11.4 fL Neutrophils (%) (Auto) 72.9 % Lymphocytes (%) (Auto) 14.4 % Monocytes (%) (Auto) 8.2 % Eosinophils (%) (Auto) 2.9 % Basophils (%) (Auto) 0.6 % Neutrophils # (Auto) 6.86 K/uL Lymphocytes # (Auto) 1.35 K/uL Monocytes # (Auto) 0.77 K/uL Eosinophils # (Auto) 0.27 K/uL Basophils # (Auto) 0.06 K/uL RDW Standard Deviation 50.0 fL RDW Coefficient of Variation 13.6 % Immature Granulocyte % (Auto) 1.0 % Immature Granulocyte # (Auto) 0.09 K/uL Red Blood Cell Morphology Unremarkable Creatinine 1.08 mg/dl Est Creatinine Clear Calc Drug Dose 69.9 ml/min Estimated GFR () 76.9 Estimated GFR (Non- 66.3 Date/Time Source Procedure Growth Status 12/05/17 07:03 Blood Blood Culture Pending Received 12/05/17 06:57 Blood Blood Culture Pending Received Assessment & Plan Left Sided Lower Back Pain radiated to Left Lower Ext Might be related to sciatica? Outpt MRI showed on 12/02 no acute abnormalities identified. 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 No significant spinal canal stenosis at any level. Heterogeneous appearance of bone marrow signal with edematous changes in the endplates at several levels Received IV morphine and oxy with no relief sciatica Will increase oxycodone to 10mg Continue IV morphine Orthopedic consult PT/OT once pain alleviates Fall precaution 12/05 Pain continue to improve significantly Walk today with therapist Able to rise his legs up MRI with contrast done showed findings consistent with acute L4-L5 discitis. 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 Pain management on board Discussed case with Dr. Cabello recommended no interventional therapy for pain management or for biopsy of the osseous lesion due to UTI at this time. Continue gabapentin Steroid d/c due to possible infection Continue Hydrocodone 5-10 mg every 4 hours as needed for analgesia Orthopedic on board- Might need to consider decompression at the 4 5 level to address the severe radiculopathy if no improvement with abx Continue vanco as per ID Continue PT/OT Fall precaution Might need surgical intervention if blood cx remains positive Referral placed to [facility] for inpatient rehab MRI report 1. No acute abnormalities identified. 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 No significant spinal canal stenosis at any level. 2. Neural foraminal narrowing of different degree at several levels, most significant, moderate, in the left L4-5 foramen. 3. Heterogeneous appearance of bone marrow signal with edematous changes in the endplates at several levels is more likely related to degenerative disc disease. Please note that presence of small osseous metastatic lesions cannot be excluded based on this examination alone in this patient with known prior history of cancer. 4. Mild aneurysmal dilatation of the infrarenal aorta, which measures up to 3.4 cm in diameter (3.1 cm in 2008). Brief Episode of Afib with RVR Last time was found on Afib was 2007 EKG showed Afib with HR 120's Converted back to NSR with rate control On carvedilol 3.125mg BID Received metoprolol 25mg Will start on metoprolol 25 mg BID Check ECHO in am CHADs-vasc score 2 for HTN and age Will defer to cardiology about abx Had never been on anticoagulant in the past Continue aspirin for now If back to Afib with RVR will start on cardizem drip and initiate anticoagulant Continue monitor in tele 12/05 Rate control on NSR EKG done today showed NSR Continue Amiodarone 400mg BID case discussed with cardiology, no anticoagulant continue metoprolol 12.5 mg BID Check EKG daily OK from cardiology standpoint to D/C telemetry ECHO * Compared to previous study of 03/31/17: moderate mitral regurgitation is now present. * Normal LV chamber size with mild concentric LVH. * Normal LV systolic function, EF 55-60%. * No segmental left ventricular wall motion abnormalities are noted. * Grade II diastolic dysfunction. * Aortic valve sclerosis mild, without significant aortic valvular stenosis. * Moderate aortic valve regurgitation is present. * The aortic regurgitation jet is eccentric coursing across the anterior mitral valve leaflet. * The jet is impinging the anterior motion of the leaflet. * Moderate mitral regurgitation with a posteriorly directed jet. * Moderate left atrial enlargement. * Mild aortic root enlaregement. Bacteremia Blood cx positive for Gamma hemolytic strep species Repeat blood cx positive for gram positive cocci 3rd repeat blood cx pending Continue IV vanco for now if blood cx remains positive might need surgical intervention Continue monitor CKD stage 3 Creatine stable Continue monitor UTI possible due to intermittent self cath Urine cx positive for enterococcus faecalis Afebrile WBC mildly elevated ON Vanco for bacteremia Constipation Has not had a BM Received Dulcolax and Miralax Will consider to give relistorx1 Hyponatremia Received NS resolved BPH Continue flomax and proscar Stable CAD S/P coronary artery bypass grafting. Denies any chest pain Stable Hypothyroidism TSH wnl continue levothyroxine Stable Esophageal cancer S/P postsurgery Stable Hypertension BP stable. Anemia Hbg 12.3 today No signs of active bleeding Monitor CBC Stable DVT px Lovenox Code status Full code Disposition Discharge possible to rehab once medically stable Current Inpatient Medications: Current Inpatient Medications Medications (Trade) Dose Ordered Sig/Fidel Route Start Time Stop Time Status Last Admin Dose Admin Lidocaine (Lidoderm Patch 5%) 1 patch QAM TD 12/01/17 08:00 12/31/17 08:59 12/05/17 09:35 1 PATCH Miscellaneous (Remove Lidoderm Patch) 1 ea DAILY@1999 N/A 11/30/17 15:00 12/30/17 14:59 12/04/17 19:42 1 EA Enoxaparin Sodium (Lovenox Inj) 40 mg Q24H SQ 11/30/17 08:00 12/30/17 07:59 12/05/17 09:35 40 MG Acetaminophen (Tylenol Tab) 650 mg Q4H PRN PO 11/30/17 01:45 12/30/17 01:44 12/04/17 16:48 650 MG Prochlorperazine Edisylate 5 mg/ Syringe 5 ml @ 5 mls/min Q6H PRN IV 11/30/17 01:45 12/30/17 01:44 12/05/17 08:10 5 MLS/MIN Allopurinol (Zyloprim Tab) 100 mg BID PO 11/30/17 08:00 12/30/17 08:59 12/05/17 09:32 100 MG Atorvastatin Calcium (Lipitor Tab) 20 mg QAM PO 11/30/17 08:00 12/30/17 08:59 12/05/17 09:31 20 MG Carvedilol (Coreg Tab) 3.125 mg BID PO 11/30/17 08:00 12/30/17 08:59 Future Hold 12/02/17 08:26 3.125 MG Finasteride (Proscar Tab) 5 mg QAM PO 11/30/17 08:00 12/30/17 08:59 12/05/17 09:35 5 MG Levothyroxine Sodium (Synthroid Tab) 175 mcg DAILYBB PO 11/30/17 06:30 12/30/17 06:29 12/05/17 09:30 175 MCG Losartan Potassium (coZAAR TAB) 25 mg QAM PO 11/30/17 08:00 12/30/17 08:59 12/05/17 09:31 25 MG Metoprolol Succinate (Toprol Xl Tab) 25 mg QAM PO 11/30/17 08:00 12/30/17 08:59 Future Hold 12/02/17 08:27 25 MG Multivitamins (Multivitamin Tab) 1 tab QAM PO 11/30/17 08:00 12/30/17 08:59 12/05/17 09:33 1 TAB Nitroglycerin (Nitrostat Tab) 0.4 mg PRN PRN UT 11/30/17 02:00 12/30/17 01:59 Tamsulosin HCl (Flomax Cap) 0.4 mg QAM PO 11/30/17 08:00 12/30/17 08:59 12/05/17 09:34 0.4 MG Trazodone HCl (Desyrel Tab) 50 mg HS PO 11/30/17 21:00 12/30/17 20:59 12/04/17 19:29 50 MG Pantoprazole Sodium (Protonix Tab) 40 mg QAM PO 11/30/17 08:00 12/30/17 08:59 12/05/17 09:33 40 MG Docusate Sodium (coLACE CAP) 100 mg DAILY PO 12/01/17 08:00 12/31/17 07:59 12/05/17 09:31 100 MG Diphenhydramine HCl (Benadryl Syrup) 12.5 mg Q8H PRN PO 11/30/17 12:00 12/30/17 11:59 11/30/17 13:16 12.5 MG Acetaminophen/ Hydrocodone Bitart ([place] 5/325 Tab) 1 tab Q4H PRN PO 12/01/17 10:15 12/15/17 10:14 12/05/17 11:55 1 TAB Acetaminophen/ Hydrocodone Bitart ([place] 7.5/325 Tab) 1 tab Q6H PRN PO 12/01/17 10:15 12/15/17 10:14 12/02/17 14:00 1 TAB Gabapentin (Neurontin Cap) 100 mg TID PO 12/01/17 14:00 12/31/17 13:59 12/05/17 14:21 100 MG Ferrous Sulfate (Feosol Tab) 325 mg QAM PO 12/02/17 08:00 01/01/18 07:59 12/05/17 09:30 325 MG Gadobutrol (Gadavist) 9.5 mmol UD PRN IV 12/01/17 18:30 12/05/17 18:29 Vancomycin HCl (Consult) 1 ea UD PRN N/A 12/01/17 19:30 12/31/17 19:29 Vancomycin HCl 1500 mg/Sodium Chloride 530 ml @ 200 mls/hr Q16H IV 12/02/17 12:00 01/13/18 11:59 12/05/17 04:43 200 MLS/HR Metoprolol Tartrate (Lopressor Iv) 2.5 mg Q6H PRN IV 12/02/17 18:45 01/01/18 18:44 Metoprolol Succinate (Toprol Xl Tab) 12.5 mg BID PO 12/03/17 09:00 01/01/18 20:59 12/05/17 09:33 12.5 MG Aspirin (Ecotrin Tab) 162 mg HS PO 12/03/17 21:00 01/02/18 20:59 12/04/17 19:31 162 MG Amiodarone HCl (Cordarone Tab) 400 mg TID PO 12/03/17 18:00 01/02/18 17:59 12/05/17 14:22 400 MG Polyethylene (Miralax Powder Packet) 17 gm ONE PRN PO 12/04/17 17:15 01/03/18 17:14 12/05/17 09:29 17 GM Bisacodyl (Dulcolax Tab) 5 mg BID PRN PO 12/04/17 17:15 01/03/18 17:14 12/05/17 09:30 5 MG
[2017-12-05] MEDS ORDERED: METHYLNALTREXONE BROMIDE INJ 12 MG/0.6 ML SYR SQ ONE (18:00)
[2017-12-05] MEDS: ASPIRIN 81 MG ECTAB PO SCH (19:52)
[2017-12-05] MEDS: TRAZODONE HCL 50 MG TAB PO SCH (21:07)
[2017-12-05 22:40] VITALS: BP 136/67; PULSE 57; TEMP 37.1; O2SAT 95
[2017-12-06 06:11] LABS: BASO % 0.5 %; BASO ABS # 0.05 K/uL (0-0.2); EOS % 2.8 %; EOS ABS # 0.29 K/uL (0-0.5); HEMATOCRIT 35.6 % (42-52); HEMOGLOBIN 11.9 g/dL (14.0-18.0); LYMPH % 13.1 %; LYMPH ABS # 1.34 K/uL (1.2-3.4); MEAN CELL VOLUME 100.3 fL (80-100); MEAN CORPUSCULAR HEMOGLOBIN 33.5 pg (25-34); MEAN CORPUSCULAR HGB CONC 33.4 g/dl (32-36); MEAN PLATELET VOLUME 11.3 fL (7.4-10.4); MONO % 8.1 %; MONO ABS # 0.83 K/uL (0.11-0.59); NEUT % 74.5 %; NEUT ABS # 7.63 K/uL (1.4-6.5); PLATELET COUNT 272 K/uL (130-400); RED CELL DISTRIBUTION WIDTH CV 13.5 % (11.5-14.5); RED CELL DISTRIBUTION WIDTH SD 49.3 fL (36.4-46.3); WHITE BLOOD COUNT 10.24 K/uL (4.8-10.8)
[2017-12-06] MEDS: LEVOTHYROXINE 175 MCG TAB PO SCH (06:11)
[2017-12-06 06:43] LABS: CREATININE 0.98 mg/dl (0.60-1.40)
[2017-12-06] MEDS ORDERED: METHYLPREDNISOLONE 4 MG TAB PO SCH (07:00)
[2017-12-06 07:11] VITALS: BP 127/73; PULSE 55; TEMP 36.3; O2SAT 96
[2017-12-06] MEDS: METOPROLOL SUCC 25MG EXT REL TAB PO SCH ×2 (09:23→20:45)
[2017-12-06] MEDS: MULTIVITAMIN TAB PO SCH (09:23)
[2017-12-06] MEDS: ATORVASTATIN 20 MG TAB PO SCH (09:23)
[2017-12-06] MEDS: PANTOprazole SOD 40 MG TAB PO SCH (09:23)
[2017-12-06] MEDS: LOSARTAN POTASSIUM 25 MG TAB PO SCH (09:24)
[2017-12-06] MEDS: FINASTERIDE 5 MG TAB PO SCH (09:24)
[2017-12-06] MEDS: DOCUSATE SODIUM 100 MG CAP PO SCH (09:24)
[2017-12-06] MEDS: TAMSULOSIN HCL 0.4 MG CAP PO SCH (09:24)
[2017-12-06] MEDS: AMIODARONE 200 MG TAB PO SCH ×3 (09:24→20:47)
[2017-12-06] MEDS: GABAPENTIN 100 MG CAP PO SCH ×3 (09:25→20:45)
[2017-12-06] MEDS: FERROUS SULFATE 325 MG TAB PO SCH (09:25)
[2017-12-06] MEDS: LIDODERM (LIDOCAINE) PATCH 5% TD SCH (09:26)
[2017-12-06] MEDS: ALLOPURINOL 100 MG TAB PO SCH ×2 (09:26→20:46)
[2017-12-06] MEDS: ENOXAPARIN 40 MG/0.4 ML SYR SQ SCH (09:27)
--- NOTE | 2017-12-06 11:00 | Progress Note ---
Subjective Date of Service: Dec 06, 2017. Subjective Pt evaluation today including: conversation w/ patient, physical exam, chart review, lab review, review of studies pt seen in followup. much more awake. no f/c. repeat cultures still pending. initial cultures with strep species, await further ID/sensitivities. urine culture with E. faecalis. no back pain. states no plan for OR unless repeat cultures + as well. wbc nml. all remaining ros reviewed and are negative Problem List Medical Problems: (1) Back pain Status: Acute (2) Bladder distention Status: Acute (3) Hypothyroidism Status: Acute (4) Pneumonia Status: Acute (5) Pneumonia Status: Acute (6) UTI (urinary tract infection) Status: Acute (7) Weakness Status: Acute Objective Vital Signs Date Time Temp Pulse Resp B/P (MAP) Pulse Ox O2 Delivery O2 Flow Rate FiO2 12/06/17 07:11 36.3 55 20 127/73 (91) 96 12/06/17 01:09 CPAP 12/05/17 22:40 37.1 57 18 136/67 (90) 95 CPAP 12/05/17 19:15 Room Air 12/05/17 15:25 36.7 62 18 154/67 (96) 95 Room Air 12/05/17 14:23 67 145/74 (97) Physical Exam General Appearance: WD/WN, no apparent distress Eyes: normal inspection, EOMI Neck: supple Respiratory/Chest: lungs clear, normal breath sounds, no respiratory distress Cardiovascular: regular rate, rhythm, no edema Abdomen: non tender, soft Extremities: non-tender, no pedal edema Neurologic/Psychiatric: alert, oriented x 3 Skin: normal color Laboratory Results Item Value Date Time Blood Culture - Preliminary Resulted 12/03/17 1646 Blood Streptococcus Species Urine Culture - Final Complete 11/29/17 2240 Urine , Clean Catch Enterococcus Faecalis Blood Culture - Preliminary Resulted 12/01/17 1947 Blood Gamma Hemolytic Strep. Species Last 24 Hours Test 12/06/17 00:03 12/06/17 05:44 White Blood Count 10.24 K/uL Red Blood Count 3.55 M/uL Hemoglobin 11.9 g/dL Hematocrit 35.6 % Mean Corpuscular Volume 100.3 fL Mean Corpuscular Hemoglobin 33.5 pg Mean Corpuscular Hemoglobin Concent 33.4 g/dl Platelet Count 272 K/uL Mean Platelet Volume 11.3 fL Neutrophils (%) (Auto) 74.5 % Lymphocytes (%) (Auto) 13.1 % Monocytes (%) (Auto) 8.1 % Eosinophils (%) (Auto) 2.8 % Basophils (%) (Auto) 0.5 % Neutrophils # (Auto) 7.63 K/uL Lymphocytes # (Auto) 1.34 K/uL Monocytes # (Auto) 0.83 K/uL Eosinophils # (Auto) 0.29 K/uL Basophils # (Auto) 0.05 K/uL RDW Standard Deviation 49.3 fL RDW Coefficient of Variation 13.5 % Immature Granulocyte % (Auto) 1.0 % Immature Granulocyte # (Auto) 0.10 K/uL Creatinine 0.98 mg/dl Est Creatinine Clear Calc Drug Dose 77.1 ml/min Estimated GFR () 86.5 Estimated GFR (Non- 74.6 Assessment and Plan (1) Gram positive septicemia Assessment & Plan: continue vanco, suspect E. faecalis, follow repeat cultures. if unable to clear bloodstream may need surgical intervention. will follow. (2) Vertebral osteomyelitis
--- NOTE | 2017-12-06 11:14 | Progress Note ---
Internal Med Progress Note Date of Service: Dec 06, 2017. Provider Documentation: SUBJECTIVE: The patient was seen and examined in medical floor He has bacteremia likely secondary to discitis Denies any symptoms today and has been getting physical therapy without any problem Has been waiting to go to rehab OBJECTIVE: Vital Signs-as noted below Exam: General-no apparent distress at rest Eyes-normal ENT-normal Neck-supple Lungs-clear to auscultate bilaterally Heart-regular, no murmur Abdomen-benign, soft, nontender, bowel sounds present Extremities-negative for any edema Neuro-alert, awake and oriented 3 No focal sensory and motor deficit appreciated Lab data as noted below. ASSESSMENT & PLAN: Left Sided Lower Back Pain radiated to Left Lower Ext Outpt MRI showed on 12/02 no acute abnormalities identified. 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 No significant spinal canal stenosis at any level. Heterogeneous appearance of bone marrow signal with edematous changes in the endplates at several levels Oxycodone increased to 10mg to control pain and now on [place] and Gabapentin Appreciate Orthopedic consult PT/OT once pain alleviates Repeat MRI with contrast done showed findings consistent with acute L4-L5 discitis. 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 Pain management on board Discussed case with Dr. Cabello recommended no interventional therapy for pain management or for biopsy of the osseous lesion due to UTI at this time. Orthopedic on board- Might need to consider decompression at the 4 5 level to address the severe radiculopathy if no improvement with abx Need to be re-evaluated by the Ortho if Repeat Blood Cultures are positive MRI report 1. No acute abnormalities identified. 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 No significant spinal canal stenosis at any level. 2. Neural foraminal narrowing of different degree at several levels, most significant, moderate, in the left L4-5 foramen. 3. Heterogeneous appearance of bone marrow signal with edematous changes in the endplates at several levels is more likely related to degenerative disc disease. Please note that presence of small osseous metastatic lesions cannot be excluded based on this examination alone in this patient with known prior history of cancer. 4. Mild aneurysmal dilatation of the infrarenal aorta, which measures up to 3.4 cm in diameter (3.1 cm in 2008). Brief Episode of Afib with RVR Last time was found on Afib was 2007 EKG showed Afib with HR 120's Converted back to NSR with rate control On carvedilol 3.125mg BID Received metoprolol 25mg Will start on metoprolol 25 mg BID Check ECHO ::ECHO * Compared to previous study of 03/31/17: moderate mitral regurgitation is now present. * Normal LV chamber size with mild concentric LVH. * Normal LV systolic function, EF 55-60%. * No segmental left ventricular wall motion abnormalities are noted. * Grade II diastolic dysfunction. * Aortic valve sclerosis mild, without significant aortic valvular stenosis. * Moderate aortic valve regurgitation is present. * The aortic regurgitation jet is eccentric coursing across the anterior mitral valve leaflet. * The jet is impinging the anterior motion of the leaflet. * Moderate mitral regurgitation with a posteriorly directed jet. * Moderate left atrial enlargement. * Mild aortic root enlaregement. EKG done today showed NSR Continue Amiodarone 400mg BID case discussed with cardiology, no anticoagulant continue metoprolol 12.5 mg BID Bacteremia Blood cx positive for Gamma hemolytic strep species Repeat blood cx positive for gram positive cocci 3rd repeat blood cx pending Continue IV vanco for now if blood cx remains positive might need surgical intervention Continue monitor CKD stage 3 Creatine stable Continue monitor UTI possible due to intermittent self cath Urine cx positive for enterococcus faecalis Afebrile WBC mildly elevated ON Vanco for bacteremia Constipation Has not had a BM Received Dulcolax and Miralax Will consider to give relistorx1 Hyponatremia Received NS resolved BPH Continue Flomax and Proscar Stable CAD S/P coronary artery bypass grafting. Denies any chest pain Stable Hypothyroidism TSH wnl continue levothyroxine Stable Esophageal cancer S/P postsurgery Stable Hypertension BP stable. Anemia Hbg 12.3 today No signs of active bleeding Monitor CBC Stable DVT px Lovenox Code status Full code Disposition Discharge possible to rehab once medically stable I had a long discussion with the and the patient this afternoon He has lumbar discitis/vertebral axis with them continuing bacteremia. He was seen by Dr. Allan this afternoon and he suggested that if surgery is needed it will need to be done in a tertiary care center. In the meantime we will need to rule out the possible source of other area like the heart The intended to go to [facility] if he needs to have surgery. I put a request for [facility] tomorrow and following that discussion about transferring the patient to [facility] will be started The patient came in initially with complicated UTI-culture to Enterococcus faecalis and since then he has had 6 bottles of culture positive for staph aureus The sensitivity of this organism has not been reported yet and the patient has been on IV vancomycin. He denies any symptom suggestive of ongoing infection but has positive blood culture. We will get [facility] as mentioned earlier than possible transfer to tertiary care center on Monday or after the weekend. Vital Signs: Date Time Temp Pulse Resp B/P (MAP) Pulse Ox O2 Delivery O2 Flow Rate FiO2 12/06/17 15:00 36.8 65 18 116/57 (76) 90 Room Air 12/06/17 09:05 Room Air 12/06/17 07:11 36.3 55 20 127/73 (91) 96 12/06/17 01:09 CPAP 12/05/17 22:40 37.1 57 18 136/67 (90) 95 CPAP 12/05/17 19:15 Room Air Lab Results: Results Past 24 Hours Test 12/06/17 00:03 12/06/17 05:44 12/06/17 11:28 Range/Units White Blood Count 10.24 4.8-10.8 K/uL Red Blood Count 3.55 4.7-6.1 M/uL Hemoglobin 11.9 14.0-18.0 g/dL Hematocrit 35.6 42-52 % Mean Corpuscular Volume 100.3 80-100 fL Mean Corpuscular Hemoglobin 33.5 25-34 pg Mean Corpuscular Hemoglobin Concent 33.4 32-36 g/dl Platelet Count 272 130-400 K/uL Mean Platelet Volume 11.3 7.4-10.4 fL Neutrophils (%) (Auto) 74.5 % Lymphocytes (%) (Auto) 13.1 % Monocytes (%) (Auto) 8.1 % Eosinophils (%) (Auto) 2.8 % Basophils (%) (Auto) 0.5 % Neutrophils # (Auto) 7.63 1.4-6.5 K/uL Lymphocytes # (Auto) 1.34 1.2-3.4 K/uL Monocytes # (Auto) 0.83 0.11-0.59 K/uL Eosinophils # (Auto) 0.29 0-0.5 K/uL Basophils # (Auto) 0.05 0-0.2 K/uL RDW Standard Deviation 49.3 36.4-46.3 fL RDW Coefficient of Variation 13.5 11.5-14.5 % Immature Granulocyte % (Auto) 1.0 % Immature Granulocyte # (Auto) 0.10 0.00-0.02 K/uL Creatinine 0.98 0.60-1.40 mg/dl Est Creatinine Clear Calc Drug Dose 77.1 ml/min Estimated GFR () 86.5 Estimated GFR (Non- 74.6 Vancomycin Level Trough 21.4 SEE COMMENT mcg/ml
[2017-12-06] MEDS ORDERED: VANCOMYCIN TROUGH ONE (11:30)
[2017-12-06] MEDS: VANCOMYCIN IV 1,500 MG in SODIUM CHLORIDE 0.9% 500ML 500 ML IV SCH (12:08)
--- NOTE | 2017-12-06 12:39 | Pharmacy Progress Note ---
Pharmacy Abx Dose Short Note Date of Service Dec 06, 2017. Assessment & Plan Assessment 77 year old male receiving vancomycin for treatment of enterococcal uti/ bacteremia/ possible psoas abscess Day # 6 of antimicrobial therapy. Plan Vancomycin * Trough level of 21.4 mcg/mL is slightly supratherapeutic * Change to 1500 mg IV every 18 hours * extended frequency slightly, want to aim for higher end of goal * Goal trough level 15-20 mcg/mL * Trough ordered for 12/09 @1145 Pharmacy will continue to follow and will adjust dose/frequency as necessary. Thank you.
[2017-12-06] MEDS: HYDROCODONE/ACETAMIN 5/325MG TAB PO PRN (13:37)
[2017-12-06 15:00] VITALS: BP 116/57; PULSE 65; TEMP 36.8; O2SAT 90
[2017-12-06 20:41] VITALS: BP 130/70; PULSE 62
[2017-12-06] MEDS: TRAZODONE HCL 50 MG TAB PO SCH (22:18)
[2017-12-06] MEDS: ASPIRIN 81 MG ECTAB PO SCH (22:19)
[2017-12-06 23:56] VITALS: BP 136/67; PULSE 56; TEMP 36.9; O2SAT 94
[2017-12-07] MEDS: LEVOTHYROXINE 175 MCG TAB PO SCH (05:59)
[2017-12-07] MEDS ORDERED: VANCOMYCIN IV 1,500 MG in SODIUM CHLORIDE 0.9% 500ML 500 ML IV SCH (06:00)
[2017-12-07 06:50] LABS: BASO % 0.7 %; BASO ABS # 0.06 K/uL (0-0.2); EOS % 3.3 %; EOS ABS # 0.29 K/uL (0-0.5); HEMATOCRIT 35.7 % (42-52); IG# 0.14 K/uL (0.00-0.02); LYMPH % 18.9 %; LYMPH ABS # 1.66 K/uL (1.2-3.4); MEAN CELL VOLUME 100.3 fL (80-100); MEAN CORPUSCULAR HEMOGLOBIN 33.7 pg (25-34); MEAN CORPUSCULAR HGB CONC 33.6 g/dl (32-36); MEAN PLATELET VOLUME 11.5 fL (7.4-10.4); MONO % 10.3 %; NEUT % 65.2 %; NEUT ABS # 5.73 K/uL (1.4-6.5); PLATELET COUNT 277 K/uL (130-400); RED CELL DISTRIBUTION WIDTH CV 13.7 % (11.5-14.5); WHITE BLOOD COUNT 8.78 K/uL (4.8-10.8)
[2017-12-07 07:11] VITALS: BP 111/55; PULSE 53; TEMP 36.7; O2SAT 95
[2017-12-07] MEDS: GABAPENTIN 100 MG CAP PO SCH ×3 (08:38→20:41)
[2017-12-07] MEDS: FINASTERIDE 5 MG TAB PO SCH (08:38)
[2017-12-07] MEDS: LIDODERM (LIDOCAINE) PATCH 5% TD SCH (08:38)
[2017-12-07] MEDS: ENOXAPARIN 40 MG/0.4 ML SYR SQ SCH (08:38)
[2017-12-07] MEDS: TAMSULOSIN HCL 0.4 MG CAP PO SCH (08:38)
[2017-12-07] MEDS: METOPROLOL SUCC 25MG EXT REL TAB PO SCH ×2 (08:39→20:45)
[2017-12-07] MEDS: FERROUS SULFATE 325 MG TAB PO SCH (08:39)
[2017-12-07] MEDS: PANTOprazole SOD 40 MG TAB PO SCH (08:39)
[2017-12-07] MEDS: MULTIVITAMIN TAB PO SCH (08:39)
[2017-12-07] MEDS: ALLOPURINOL 100 MG TAB PO SCH ×2 (08:39→20:43)
[2017-12-07] MEDS: DOCUSATE SODIUM 100 MG CAP PO SCH (08:39)
[2017-12-07] MEDS: ATORVASTATIN 20 MG TAB PO SCH (08:39)
[2017-12-07] MEDS: LOSARTAN POTASSIUM 25 MG TAB PO SCH (08:39)
[2017-12-07] MEDS: AMIODARONE 200 MG TAB PO SCH ×3 (08:39→20:42)
[2017-12-07] MEDS: BISACODYL 5 MG TABEC PO PRN (08:44)
[2017-12-07] MEDS: POLYETHYLENE (MIRALAX) 17 GM PACK PO PRN (08:44)
[2017-12-07] MEDS ORDERED: DAPTOmycin IV 500 MG in SODIUM CHLORIDE 0.9% 50ML 50 ML IV SCH (09:00)
[2017-12-07] MEDS ORDERED: METHYLNALTREXONE BROMIDE INJ 12 MG/0.6 ML SYR SQ SCH (10:00)
[2017-12-07] MEDS: DAPTOmycin IV 500 MG in SYRINGE 0 ML IV SCH (10:36)
[2017-12-07] MEDS: HYDROCODONE/ACETAMIN 5/325MG TAB PO PRN (11:53)
--- NOTE | 2017-12-07 13:55 | Progress Note ---
Subjective Date of Service: Dec 07, 2017. Subjective pt blood cultures with E. faecalis as well. most recent pending. all previous cultures +. tolerating abx. afebrile. Problem List Medical Problems: (1) Back pain Status: Acute (2) Bladder distention Status: Acute (3) Hypothyroidism Status: Acute (4) Pneumonia Status: Acute (5) Pneumonia Status: Acute (6) UTI (urinary tract infection) Status: Acute (7) Weakness Status: Acute Objective Vital Signs Date Time Temp Pulse Resp B/P (MAP) Pulse Ox O2 Delivery O2 Flow Rate FiO2 12/07/17 09:06 Room Air 12/07/17 07:11 36.7 53 20 111/55 (73) 95 CPAP 12/06/17 23:56 36.9 56 20 136/67 (90) 94 CPAP 12/06/17 20:41 62 130/70 (90) 12/06/17 20:01 Room Air 12/06/17 15:00 36.8 65 18 116/57 (76) 90 Room Air Laboratory Results Last 24 Hours Test 12/07/17 06:06 12/07/17 09:26 White Blood Count 8.78 K/uL Red Blood Count 3.56 M/uL Hemoglobin 12.0 g/dL Hematocrit 35.7 % Mean Corpuscular Volume 100.3 fL Mean Corpuscular Hemoglobin 33.7 pg Mean Corpuscular Hemoglobin Concent 33.6 g/dl Platelet Count 277 K/uL Mean Platelet Volume 11.5 fL Neutrophils (%) (Auto) 65.2 % Lymphocytes (%) (Auto) 18.9 % Monocytes (%) (Auto) 10.3 % Eosinophils (%) (Auto) 3.3 % Basophils (%) (Auto) 0.7 % Neutrophils # (Auto) 5.73 K/uL Lymphocytes # (Auto) 1.66 K/uL Monocytes # (Auto) 0.90 K/uL Eosinophils # (Auto) 0.29 K/uL Basophils # (Auto) 0.06 K/uL RDW Standard Deviation 50.0 fL RDW Coefficient of Variation 13.7 % Immature Granulocyte % (Auto) 1.6 % Immature Granulocyte # (Auto) 0.14 K/uL Total Creatine Kinase 18 U/L Assessment and Plan (1) Gram positive septicemia Assessment & Plan: will change to unasyn for now. follow cultures. may need debridement. (2) Vertebral osteomyelitis
--- NOTE | 2017-12-07 14:46 | Progress Note ---
Internal Med Progress Note Date of Service: Dec 07, 2017. Provider Documentation: SUBJECTIVE: The patient was seen and examined in medical floor He has bacteremia likely secondary to discitis Denies any symptoms today and has been getting physical therapy without any problem Has been waiting to go to rehab 12/07: The patient remained stable Denies any symptoms and ambulating reasonably well No fever chills or rigors OBJECTIVE: Vital Signs-as noted below Exam: General-no apparent distress at rest Eyes-normal ENT-normal Neck-supple Lungs-clear to auscultate bilaterally Heart-regular, no murmur Abdomen-benign, soft, nontender, bowel sounds present Extremities-negative for any edema Neuro-alert, awake and oriented 3 No focal sensory and motor deficit appreciated Lab data as noted below. ASSESSMENT & PLAN: Lumbar Vertebral Osteomyelitis/Abscess-persistent Bacteremia Presented with Left Sided Lower Back Pain radiated to Left Lower Ext Outpt MRI showed on 12/02 no acute abnormalities identified. 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 No significant spinal canal stenosis at any level. Heterogeneous appearance of bone marrow signal with edematous changes in the endplates at several levels Oxycodone increased to 10mg to control pain and now on [place] and Gabapentin Appreciate Orthopedic consult Repeat MRI with contrast done showed findings consistent with acute L4-L5 discitis. 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 Pain management on board Discussed case with Dr. Sandoval recommended no interventional therapy for pain management or for biopsy of the osseous lesion due to UTI at this time. Orthopedic on board- May need to consider decompression at the 4 5 level to address the severe radiculopathy if no improvement with abx Re-evaluated by Ortho-suggested transfer to a tertiary center for possible Surgery/Aspiration MRI report 1. No acute abnormalities identified. 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 No significant spinal canal stenosis at any level. 2. Neural foraminal narrowing of different degree at several levels, most significant, moderate, in the left L4-5 foramen. 3. Heterogeneous appearance of bone marrow signal with edematous changes in the endplates at several levels is more likely related to degenerative disc disease. Please note that presence of small osseous metastatic lesions cannot be excluded based on this examination alone in this patient with known prior history of cancer. 4. 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 Brief Episode of Afib with RVR Last time was found on Afib was 2007 EKG showed Afib with HR 120's Converted back to NSR with rate control On carvedilol 3.125mg BID Received metoprolol 25mg Will start on metoprolol 25 mg BID Check ECHO ::ECHO * Compared to previous study of 03/31/17: moderate mitral regurgitation is now present. * Normal LV chamber size with mild concentric LVH. * Normal LV systolic function, EF 55-60%. * No segmental left ventricular wall motion abnormalities are noted. * Grade II diastolic dysfunction. * Aortic valve sclerosis mild, without significant aortic valvular stenosis. * Moderate aortic valve regurgitation is present. * The aortic regurgitation jet is eccentric coursing across the anterior mitral valve leaflet. * The jet is impinging the anterior motion of the leaflet. * Moderate mitral regurgitation with a posteriorly directed jet. * Moderate left atrial enlargement. * Mild aortic root enlaregement. EKG done today showed NSR Continue Amiodarone 400mg BID case discussed with cardiology, no anticoagulant continue metoprolol 12.5 mg BID FRANKLIN to r/o possible Endocarditis cancelled due to risk associated with the procedure with H/O Esophageal Cancer and Sx Persistent Bacteremia Blood cx positive for Gamma hemolytic strep species Repeat blood cx positive for gram positive cocci 3rd repeat blood cx pending Continue IV vanco for now and changed to Dapto from 12/07/17 if blood cx remains positive might need surgical intervention Blood Culture positive for Enterococcus Faecalis and Urine Culture is positive for the Same Organism Sensitive to Daptomycin CKD stage 3 Creatine stable Continue monitor UTI-complicated possible due to intermittent self cath Urine cx positive for enterococcus faecalis Afebrile WBC mildly elevated ON Vanco for bacteremia-changed to Daptomycin from 12/07/17 Constipation Has not had a BM Received Dulcolax and Miralax Will consider to give relistorx1 today again Hyponatremia Received NS resolved BPH Continue Flomax and Proscar Stable S/P Chambers Cath CAD S/P coronary artery bypass grafting. Denies any chest pain Stable Hypothyroidism TSH wnl continue levothyroxine Stable Esophageal cancer S/P postsurgery Stable-has had successful EGD ~ 2 years ago Hypertension BP stable. Anemia Hbg 12.3 today No signs of active bleeding Monitor CBC Stable DVT px Lovenox Code status Full code Disposition Discharge possible to rehab once medically stable I had a long discussion with the and the patient this afternoon He has lumbar discitis/vertebral axis with them continuing bacteremia. He was seen by Dr. Allan this afternoon and he suggested that if surgery is needed it will need to be done in a tertiary care center. In the meantime we will need to rule out the possible source of other area like the heart The intended to go to [facility] if he needs to have surgery. I put a request for FRANKLIN tomorrow and following that discussion about transferring the patient to [facility] will be started The patient came in initially with complicated UTI-culture to Enterococcus faecalis and since then he has had 6 bottles of culture positive for staph aureus The sensitivity of this organism has not been reported yet and the patient has been on IV vancomycin. He denies any symptom suggestive of ongoing infection but has positive blood culture. We will get FRANKLIN as mentioned earlier than possible transfer to tertiary care center on Monday or after the weekend. The patient was transferred to [facility] for Continued management in a tertiary care facility. Vital Signs: Date Time Temp Pulse Resp B/P (MAP) Pulse Ox O2 Delivery O2 Flow Rate FiO2 12/07/17 09:06 Room Air 12/07/17 07:11 36.7 53 20 111/55 (73) 95 CPAP 12/06/17 23:56 36.9 56 20 136/67 (90) 94 CPAP 12/06/17 20:41 62 130/70 (90) 12/06/17 20:01 Room Air 12/06/17 15:00 36.8 65 18 116/57 (76) 90 Room Air Lab Results: Results Past 24 Hours Test 12/07/17 06:06 12/07/17 09:26 Range/Units White Blood Count 8.78 4.8-10.8 K/uL Red Blood Count 3.56 4.7-6.1 M/uL Hemoglobin 12.0 14.0-18.0 g/dL Hematocrit 35.7 42-52 % Mean Corpuscular Volume 100.3 80-100 fL Mean Corpuscular Hemoglobin 33.7 25-34 pg Mean Corpuscular Hemoglobin Concent 33.6 32-36 g/dl Platelet Count 277 130-400 K/uL Mean Platelet Volume 11.5 7.4-10.4 fL Neutrophils (%) (Auto) 65.2 % Lymphocytes (%) (Auto) 18.9 % Monocytes (%) (Auto) 10.3 % Eosinophils (%) (Auto) 3.3 % Basophils (%) (Auto) 0.7 % Neutrophils # (Auto) 5.73 1.4-6.5 K/uL Lymphocytes # (Auto) 1.66 1.2-3.4 K/uL Monocytes # (Auto) 0.90 0.11-0.59 K/uL Eosinophils # (Auto) 0.29 0-0.5 K/uL Basophils # (Auto) 0.06 0-0.2 K/uL RDW Standard Deviation 50.0 36.4-46.3 fL RDW Coefficient of Variation 13.7 11.5-14.5 % Immature Granulocyte % (Auto) 1.6 % Immature Granulocyte # (Auto) 0.14 0.00-0.02 K/uL Total Creatine Kinase 18 39-308 U/L Microbiology Results 12/07/17 Blood Culture, Received Pending 12/07/17 Blood Culture, Received Pending 12/07/17 Urine Culture, Received Pending
--- NOTE | 2017-12-07 14:53 | Discharge Instructions ---
Discharge Instructions Date of Service Dec 07, 2017. Admission Reason for Admission: Complicated Uti Discharge Discharge Diagnosis / Problem: Lumber Vertebral Osteomyelitis/Abscess Discharge Goals Goal(s): Therapeutic intervention, Prevent Disease Progression Activity Recommendations Activity Limitations: as noted below (was transferred to Acute Care facility) . Instructions / Follow-Up Instructions / Follow-Up Please make an appointment with your PCP in 1 week following discharge from the Facility Current Hospital Diet Patient's current hospital diet: Regular Diet Discharge Diet Recommended Diet: Regular Diet Pending Studies Studies pending at discharge: no Medical Emergencies . Who to Call and When: Medical Emergencies: If at any time you feel your situation is an emergency, please call 911 immediately. . Non-Emergent Contact Non-Emergency issues call your: Primary Care Provider . Past History Medical & Surgical History: (1) Back pain (2) Bladder distention (3) Complicated urinary tract infection (4) coronary artery disease s/p CABG (5) esophagectomy s/p cancer (6) Gram positive septicemia (7) Vertebral osteomyelitis . "Provider Documentation" section prepared by Damari Orlando. .
[2017-12-07 15:03] VITALS: BP 131/60; PULSE 63; TEMP 36.7; O2SAT 92
[2017-12-07 15:16] VITALS: BP 131/60; PULSE 63; TEMP 36.7; O2SAT 92
--- NOTE | 2017-12-07 15:23 | Discharge Summary ---
Discharge Summary Date of Service Dec 07, 2017. Discharge Summary Admission Date: Nov 30, 2017 at 01:19 Discharge Date: Dec 07, 2017 Discharge Disposition: Acute care facility Principal Diagnosis: Lumbar Vertebral Osteomyelitis/Abscess,Complicated UTI,Persistent Bacteremia Secondary Diagnoses/Problems: Please see H&P and Hospital Progress note Consultations: Ortho,Pain therapy,Cardiology and ID Admission Information HPI (per Admitting provider): DATE OF ADMISSION: 11/30/2017 CHIEF COMPLAINT: Back pain. HISTORY OF PRESENT ILLNESS: History obtained by the patient, , and records. Medical history is significant for CAD status post CABG, PVD, hypertension, hypothyroidism, past tobacco abuse, esophageal cancer status post surgery, PVD, history of BPH, urinary retention (intermittent self straight catheterization at home), chronic hyponatremia. A week history of achy low back pain radiating to the left lower extremity, shooting. No recollection of recent trauma. Patient saw his PCP few days ago. Left leg weakness noted on exam. As per records, tramadol started. MRI spine without contrast ordered, no acute abnormalities identified. Multilevel, multifactorial degenerative changes, mildly progressed from 01/2009. Neural foraminal narrowing, significant moderate left L4-L5 foraminal narrowing; heterogeneous appearance of bone marrow signal with edematous changes in the endplates at several levels, likely related to degenerative disc disease, small osseous metastatic lesions cannot be excluded;infrarenal aorta dilatation noted. Worsening back pain pain noted. Low-grade fever at home, T 101. No cough, no chest pain no shortness of breath. No bladder discomfort. Intractable back pain at the ER. MEDICAL HISTORY: As above. Sees [facility] for BPH with urinary retention. Last visit was 03/2017, Finasteride prescription, return after 6 months for follow-up as per note. If PVR does not improve, consider cystoscopy. Patient doing intermittent straight catheterization. Urine cultures 10/2017 showed enterococcus. ? Cipro prescribed. SURGERIES: urologic procedure, CABG, carpal tunnel surgery, hernia repair, esophagectomy, TURP. HOME MEDICATIONS: Include glucosamine, Synthroid, Cozaar, melatonin, Toprol, multivitamins, Nitrostat, Prilosec , Flomax, trazodone, vitamin E, vitamin D3, Coenzyme Q, Benadryl, Proscar, fish oil, Zyloprim, ascorbic acid, aspirin once daily, Lipitor, Tylenol, Coreg. ALLERGIES: No known drug allergies. FAMILY HISTORY: Hypertension. PERSONAL AND SOCIAL HISTORY: Past tobacco abuse. No chronic intake of alcoholic beverages. 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 REVIEW OF SYSTEMS: As per HPI, all 10 systems reviewed. All other ROS negative. PHYSICAL EXAMINATION: VITAL SIGNS: Blood pressure noted to be 138/50, pulse rate 70, RR 20, temperature 37, sats 94 on room air. GENERAL: Noted to be uncomfortable, no respiratory distress. SKIN: Pallor, warm. HEENT: Partial alopecia, pale palpebral conjunctivae. No ptosis. Dry mucosa. NECK: Short, supple. CHEST: Decreased effort. No tenderness. HEART: Regular rate and rhythm, no murmur. ABDOMEN: Abdominal distention noted. Healed scars, nontender. RECTAL: Intact sphincter, yellow stool, heme negative. 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 NEUROLOGIC: Coherent. No gross focality except for back exam. LABORATORY DATA: Hemoglobin is 13, white cell count 10, platelets 253. Sodium noted to be 130, chloride 96, CO2 is 25, BUN 20, creatinine 1, glucose was noted to be 98. UA, trace wbc est positive. CT abdomen and pelvis showed bilateral nephrolithiasis, no calculi, mild bilateral hydroureter related to moderate bladder distention, mild prevertebral swelling at L3-L4 and L4-L5 levels infection versus acute degeneration, moderate amount of stool, 3.6 cm infrarenal abdominal aortic aneurysm without rupture, cholelithiasis, hypodense L renal lesion. ASSESSMENT: 1. Back pain multifactorial : sciatica (abnormal outpx MRI - "heterogeneous bone marrow signal") complicated urinary tract infection, no sepsis (history of benign prostatic hypertrophy with urinary retention intermittent straight cath at home, Enterococcus on recent outpatient urine CS 10/2017 ? sp Cipro rx) 2. Coronary artery disease, status post coronary artery bypass grafting. 3. hx PVD 4. Esophageal cancer sp postsurgery 5. hypertension, stable. 6. Acute onset anemia, no occult gastrointestinal bleed. 7. Past tobacco abuse . PLAN: GMF analgesia Lidoderm patch trial urine cultures, IV Zosyn. Orthopedic spine consult RE back pain, abnormal MRI (? benefit in doing contrast MRI) anemia workup. PT OT eval DVT prophylaxis, Lovenox subQ. Full code. Dictated: 11/30/17 0252 Transcribed: 11/30/17 0455 <Electronically signed by Alfredo Almendarez M.D.> Signed: 11/30/17 1316 ES Alfredo Almendarez M.D. Hospital Course Lumbar Vertebral Osteomyelitis/Abscess-persistent Bacteremia Presented with Left Sided Lower Back Pain radiated to Left Lower Ext Outpt MRI showed on 12/02 no acute abnormalities identified. 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 No significant spinal canal stenosis at any level. Heterogeneous appearance of bone marrow signal with edematous changes in the endplates at several levels Oxycodone increased to 10mg to control pain and now on Voca and Gabapentin Appreciate Orthopedic consult Repeat MRI with contrast done showed findings consistent with acute L4-L5 discitis. 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 Pain management on board Discussed case with Dr. Sandoval recommended no interventional therapy for pain management or for biopsy of the osseous lesion due to UTI at this time. Orthopedic on board- May need to consider decompression at the 4 5 level to address the severe radiculopathy if no improvement with abx Re-evaluated by Ortho-suggested transfer to a tertiary center for possible Surgery/Aspiration MRI report 1. No acute abnormalities identified. 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 No significant spinal canal stenosis at any level. 2. Neural foraminal narrowing of different degree at several levels, most significant, moderate, in the left L4-5 foramen. 3. Heterogeneous appearance of bone marrow signal with edematous changes in the endplates at several levels is more likely related to degenerative disc disease. Please note that presence of small osseous metastatic lesions cannot be excluded based on this examination alone in this patient with known prior history of cancer. 4. Mild aneurysmal dilatation of the infrarenal aorta, which measures up to 3.4 cm in diameter (3.1 cm in 2008). Brief Episode of Afib with RVR Last time was found on Afib was 2007 EKG showed Afib with HR 120's Converted back to NSR with rate control On carvedilol 3.125mg BID Received metoprolol 25mg Will start on metoprolol 25 mg BID Check ECHO ::ECHO * Compared to previous study of 03/31/17: moderate mitral regurgitation is now present. * Normal LV chamber size with mild concentric LVH. * Normal LV systolic function, EF 55-60%. * No segmental left ventricular wall motion abnormalities are noted. * Grade II diastolic dysfunction. * Aortic valve sclerosis mild, without significant aortic valvular stenosis. * Moderate aortic valve regurgitation is present. * The aortic regurgitation jet is eccentric coursing across the anterior mitral valve leaflet. * The jet is impinging the anterior motion of the leaflet. * Moderate mitral regurgitation with a posteriorly directed jet. * Moderate left atrial enlargement. * Mild aortic root enlaregement. EKG done today showed NSR Continue Amiodarone 400mg BID case discussed with cardiology, no anticoagulant continue metoprolol 12.5 mg BID FRANKLIN to r/o possible Endocarditis cancelled due to risk associated with the procedure with H/O Esophageal Cancer and Sx Persistent Bacteremia Blood cx positive for Gamma hemolytic strep species Repeat blood cx positive for gram positive cocci 3rd repeat blood cx pending Continue IV vanco for now and changed to Dapto from 12/07/17 if blood cx remains positive might need surgical intervention Blood Culture positive for Enterococcus Faecalis and Urine Culture is positive for the Same Organism Sensitive to Daptomycin CKD stage 3 Creatine stable Continue monitor UTI-complicated possible due to intermittent self cath Urine cx positive for enterococcus faecalis Afebrile WBC mildly elevated ON Vanco for bacteremia-changed to Daptomycin from 12/07/17 Constipation Has not had a BM Received Dulcolax and Miralax Will consider to give relistorx1 today again Hyponatremia Received NS resolved BPH Continue Flomax and Proscar Stable S/P Chambers Cath CAD S/P coronary artery bypass grafting. Denies any chest pain Stable Hypothyroidism TSH wnl continue levothyroxine Stable Esophageal cancer S/P postsurgery Stable-has had successful EGD ~ 2 years ago Hypertension BP stable. Anemia Hbg 12.3 today No signs of active bleeding Monitor CBC Stable DVT px Lovenox Code status Full code Disposition Discharge possible to rehab once medically stable I had a long discussion with the and the patient this afternoon He has lumbar discitis/vertebral axis with them continuing bacteremia. He was seen by Dr. Allan this afternoon and he suggested that if surgery is needed it will need to be done in a tertiary care center. In the meantime we will need to rule out the possible source of other area like the heart The intended to go to [facility] if he needs to have surgery. I put a request for FRANKLIN tomorrow and following that discussion about transferring the patient to [facility] will be started The patient came in initially with complicated UTI-culture to Enterococcus faecalis and since then he has had 6 bottles of culture positive for staph aureus The sensitivity of this organism has not been reported yet and the patient has been on IV vancomycin. He denies any symptom suggestive of ongoing infection but has positive blood culture. We will get FRANKLIN as mentioned earlier than possible transfer to tertiary care [place] on Monday or after the weekend. The patient was transferred to [facility] for Continued management in a tertiary care facility. Total time spent on discharge = 35 monutes This includes examination of the patient, discharge planning, medication reconciliation, and communication with other providers. Discharge Instructions Date of Service Dec 07, 2017. Admission Reason for Admission: Complicated Uti Discharge Discharge Diagnosis / Problem: Lumber Vertebral Osteomyelitis/Abscess Discharge Goals Goal(s): Therapeutic intervention, Prevent Disease Progression Activity Recommendations Activity Limitations: as noted below (was transferred to Acute Care facility) . Instructions / Follow-Up Instructions / Follow-Up Please make an appointment with your PCP in 1 week following discharge from the Facility All inpatient medications were continued on transfer Current Hospital Diet Patient's current hospital diet: Regular Diet Discharge Diet Recommended Diet: Regular Diet Pending Studies Studies pending at discharge: no Medical Emergencies . Who to Call and When: Medical Emergencies: If at any time you feel your situation is an emergency, please call 911 immediately. . Non-Emergent Contact Non-Emergency issues call your: Primary Care Provider . Past History Medical & Surgical History: (1) Back pain (2) Bladder distention (3) Complicated urinary tract infection (4) coronary artery disease s/p CABG (5) esophagectomy s/p cancer (6) Gram positive septicemia (7) Vertebral osteomyelitis . "Provider Documentation" section prepared by Damari Orlando. . <Electronically signed by Damari Orlando M.D.> Additional Copies To Yanick Canseco D.O.
[2017-12-07] MEDS: TRAZODONE HCL 50 MG TAB PO SCH (20:43)
[2017-12-07] MEDS: ASPIRIN 81 MG ECTAB PO SCH (20:45)
[2017-12-07 20:47] VITALS: BP 146/76; PULSE 61
[2017-12-07 23:33] VITALS: BP 136/71; PULSE 60; TEMP 36.2; O2SAT 94
[2017-12-08 06:36] VITALS: BP 123/68; PULSE 57; TEMP 36.8; O2SAT 94
[2017-12-08] MEDS: LEVOTHYROXINE 175 MCG TAB PO SCH (06:39)
[2017-12-08] MEDS: METOPROLOL SUCC 25MG EXT REL TAB PO SCH (08:00)
[2017-12-08] MEDS: LIDODERM (LIDOCAINE) PATCH 5% TD SCH (08:08)
[2017-12-08] MEDS: DOCUSATE SODIUM 100 MG CAP PO SCH (08:08)
[2017-12-08] MEDS: MULTIVITAMIN TAB PO SCH (08:08)
[2017-12-08] MEDS: LOSARTAN POTASSIUM 25 MG TAB PO SCH (08:08)
[2017-12-08] MEDS: ENOXAPARIN 40 MG/0.4 ML SYR SQ SCH (08:08)
[2017-12-08] MEDS: ATORVASTATIN 20 MG TAB PO SCH (08:08)
[2017-12-08] MEDS: AMIODARONE 200 MG TAB PO SCH (08:09)
[2017-12-08] MEDS: FINASTERIDE 5 MG TAB PO SCH (08:09)
[2017-12-08] MEDS: PANTOprazole SOD 40 MG TAB PO SCH (08:09)
[2017-12-08] MEDS: ALLOPURINOL 100 MG TAB PO SCH (08:09)
[2017-12-08] MEDS: TAMSULOSIN HCL 0.4 MG CAP PO SCH (08:09)
[2017-12-08] MEDS: FERROUS SULFATE 325 MG TAB PO SCH (08:09)
[2017-12-08] MEDS: GABAPENTIN 100 MG CAP PO SCH (08:10)
[2017-12-08] MEDS: HYDROCODONE/ACETAMINOPHEN 7.5/325MG TAB PO PRN (08:13)
[2017-12-08] MEDS: DAPTOmycin IV 500 MG in SYRINGE 0 ML IV SCH (08:40)
[2017-12-09] MEDS ORDERED: VANCOMYCIN TROUGH ONE (11:30)
== END 2017-12-08 10:50 | disposition short-term general hospital (02) | DRG 540 ==
LOC: C.EDB 20:18 → C.4E 11-30 01:19 → ENRESERV 11-30 01:28 → C.2T 12-02 17:43 → ENRESERV 12-04 17:53 → C.4E 12-04 18:37
PROVIDERS: ADMIT Internal Medicine; ATTEND Internal Medicine
DX: M46.26 Osteomyelitis of vertebra, lumbar region (principal); T83.518A Infection and inflammatory reaction due to other urinary catheter, initial encounter; E87.1 Hypo-osmolality and hyponatremia; I12.9 Hypertensive chronic kidney disease with stage 1 through stage 4 chronic kidney disease, or unspecified chronic kidney disease; N18.3 Chronic kidney disease, stage 3 (moderate); B95.2 Enterococcus as the cause of diseases classified elsewhere; K59.00 Constipation, unspecified; N40.0 Benign prostatic hyperplasia without lower urinary tract symptoms; I25.10 Atherosclerotic heart disease of native coronary artery without angina pectoris; M46.46 Discitis, unspecified, lumbar region; I48.0 Paroxysmal atrial fibrillation; Z79.82 Long term (current) use of aspirin; Z79.899 Other long term (current) drug therapy; Y73.1 Therapeutic (nonsurgical) and rehabilitative gastroenterology and urology devices associated with adverse incidents; Y84.6 Urinary catheterization as the cause of abnormal reaction of the patient, or of later complication, without mention of misadventure at the time of the procedure; Z88.5 Allergy status to narcotic agent

== ENCOUNTER 2018-08-14 12:53 | Observation (INO) ==
--- NOTE | 2018-08-06 16:01 | PAT Medication Instructions ---
Medication Instructions Date of Service August 06, 2018 Home Medications Glucosamine-Chondroitin 3X 1 tab PO QAM allopurinol 100 mg PO BID apixaban [Eliquis] 5 mg PO BID ascorbic acid (vitamin C) [Vitamin 1 g PO BID aspirin [Aspirin Low Dose] 81 mg PO QPM atorvastatin 20 mg PO PM carvedilol 3.125 mg PO BID cholecalciferol (vitamin D3) 5,000 unit PO BID coenzyme Q10 [CoQ-10] 60 mg PO QAM finasteride 5 mg PO QAM fish,bora,flax oils-om3,6,9no1 1 cap PO BID levothyroxine 175 mcg PO QAM melatonin 5 mg PO HS multivitamin 1 tab PO BID omeprazole 40 mg PO QAM tamsulosin 0.4 mg PO QPM trazodone 50 mg PO HS vitamin E 400 unit PO 2XWK ASK your prescriber and surgeon apixaban [Eliquis] 5 mg PO BID aspirin [Aspirin Low Dose] 81 mg PO QPM STOP taking 2 weeks before surgery (or as soon as possible if surgery is within 2 weeks) Glucosamine-Chondroitin 3X 1 tab PO QAM coenzyme Q10 [CoQ-10] 60 mg PO QAM fish,bora,flax oils-om3,6,9no1 1 cap PO BID vitamin E 400 unit PO 2XWK DO NOT take the morning of surgery ascorbic acid (vitamin C) [Vitamin 1 g PO BID cholecalciferol (vitamin D3) 5,000 unit PO BID multivitamin 1 tab PO BID Take morning of surgery With a small sip of water, OTHERWISE NOTHING TO EAT OR DRINK AFTER MIDNIGHT: allopurinol 100 mg PO BID carvedilol 3.125 mg PO BID finasteride 5 mg PO QAM levothyroxine 175 mcg PO QAM omeprazole 40 mg PO QAM Take evening before surgery allopurinol 100 mg PO BID ascorbic acid (vitamin C) [Vitamin 1 g PO BID aspirin [Aspirin Low Dose] 81 mg PO QPM atorvastatin 20 mg PO PM carvedilol 3.125 mg PO BID cholecalciferol (vitamin D3) 5,000 unit PO BID melatonin 5 mg PO HS multivitamin 1 tab PO BID tamsulosin 0.4 mg PO QPM trazodone 50 mg PO HS Other Notes If you have any questions please call us at [phone] or [phone] or [phone] or [phone]
--- NOTE | 2018-08-07 12:42 | Anesthesiology Consultation ---
Date of Service August 07, 2018 Assessment & Plan (1) Encounter for pre-operative examination: Per Dr. Weiner (Cardio), he is aware of upcoming procedure and patient is ok to hold ASA for this. Also, patient should hold Eliquis for 4 doses prior to procedure, and resume next day after procedure. Chart Review Chart Review: Acceptable Risk for Surgery and Patient seen in Pre Admission Testing Consults Requested none Teaching & Discussion Pre-Anesthesia Teaching/Discussion Notes: Instructed NPO after midnight before surgery, except medications with 15 cc of water. Medication instructions provided according to the PAT guidelines. History Surgery Operation Date: 08/14/18 13:40 Proposed Procedures p Transurethral Resection Prostate - Stuart No MD Height/Weight Height: 6 ft Weight: 93.8 kg Allergies Allergy/AdvReac Type Severity Reaction Status Date / Time morphine Allergy Mild ITCHING Verified 07/30/18 08:41 Medications Home Medications Medication Instructions Recorded Confirmed Last Taken Glucosamine-Chondroitin 3X 1 tab PO QAM 07/30/18 07/30/18 Unknown allopurinol 100 mg PO BID 07/30/18 07/30/18 Unknown apixaban [Eliquis] 5 mg PO BID 07/30/18 07/30/18 Unknown ascorbic acid (vitamin C) [Vitamin 1 g PO BID 07/30/18 07/30/18 Unknown C] aspirin [Aspirin Low Dose] 81 mg PO QPM 07/30/18 07/30/18 Unknown atorvastatin 20 mg PO PM 07/30/18 07/30/18 Unknown carvedilol 3.125 mg PO BID 07/30/18 07/30/18 Unknown cholecalciferol (vitamin D3) 5,000 unit PO BID 07/30/18 07/30/18 Unknown [Vitamin D3] coenzyme Q10 [CoQ-10] 60 mg PO QAM 07/30/18 07/30/18 Unknown finasteride 5 mg PO QAM 07/30/18 07/30/18 Unknown fish,bora,flax oils-om3,6,9no1 1 cap PO BID 07/30/18 07/30/18 Unknown [[place] 3-6-9 Complex] levothyroxine 175 mcg PO QAM 07/30/18 07/30/18 Unknown melatonin 5 mg PO HS 07/30/18 07/30/18 Unknown multivitamin 1 tab PO BID 07/30/18 07/30/18 Unknown omeprazole 40 mg PO QAM 07/30/18 07/30/18 Unknown tamsulosin 0.4 mg PO QPM 07/30/18 07/30/18 Unknown trazodone 50 mg PO HS 07/30/18 07/30/18 Unknown vitamin E 400 unit PO 2XWK 07/30/18 07/30/18 Unknown Past Medical History Medical History Atrial fibrillation BPH (benign prostatic hyperplasia) GERD (gastroesophageal reflux disease) Hearing deficit Hx of myocardial infarction ~2008 Hyperlipidemia Hypertension Hypothyroidism Sleep apnea uses cpap Past Family History Family History Father Family history of diabetes mellitus Past Surgical History Surgical History History of appendectomy Hx of esophagectomy d/t esophageal cancer (~2006) Hx of heart bypass surgery 4 [facility] - [place], [place] (~2008) Hx of transurethral resection of prostate x2 Past Anesthesia History No Hx of Anesthesia Complications and No Family Hx of Anesthesia Complications History of PONV No (only once with anesthesia) Motion Sickness Screening History of Motion Sickness: No Social History Smoking Status: Former smoker Smoking cigarettes per day: SMOKED ~1PPD X 15 YEARS Do You Dip or Chew Tobacco: No Smoking End Date: > 35 yr ago Hx Alcohol Use: Yes alcohol intake frequency: holidays/special occasions only Hx Substance Use: No Exercise / Class Metabolic Activity II 4-5 Yardwork/Stairs/Walk up hill (Yardwork. Able to climb FOS. Denies CP or SOB. ) Review of Systems Patient denies chest pain, shortness of breath, dyspnea on exertion, joint pain, cough, wheezing, palpitations. + Acid Reflux (controlled with medications) Physical Exam Vital Signs BP: 147/55 P: 55 R: 16 T: 97.6 SPO2: 97% on RA ENMT Mouth: + small oral opening Thyromental Distance: < 3.5 Finger Breadths (2) Mallampati Class: III Neck normal visual inspection, + limited neck extension and + facial hair (Advised) Respiratory normal respiratory effort Auscultation: lungs clear to auscultation bilaterally Cardiovascular Rate/Rhythm: regular rate and regular rhythm Heart Sounds: + murmur (Diastolic Murmur (2/6)) Vessels: no carotid bruit Neurologic moves all extremities Psychiatric Orientation: alert and oriented x 3 Testing Electrocardiogram Date: 08/07/18 Findings: + SB @ (53) LVH with repolarization abnormality When compared with ECG of 12/06/17, Incomplete LBBB is no longer present. Nonspecific T wave abnormality now evident in lateral leads. Chest X-Ray Date: 08/07/18 FINDINGS: No pneumothorax. No pleural effusions. The lungs are clear. The heart is normal in size. Poststernotomy changes are noted. Moderate hiatus hernia, unchanged. IMPRESSION: No significant change compared to the prior study. No acute process. Echocardiogram Date: 04/23/18 EF: 55-59% Other Findings: + LVH (Moderately increased (Concentric)) Moderate aortic valve regurgitation is present. Eccentric aortic regurgitation jet impinging upon the anterior mitral valve leaflet. Mild mitral regurgitation is present. Mild tricuspid regurgitation is present. The aortic root and proximal ascending aorta are mildly enlarged. Compared to prior study of 03/31/17, there is no significant change. Stress Test Date: 03/21/16 Type: DSE STRESS STUDY: The stress echo is negative for inducible ischemia. The stress EKG response showed no evidence of ischemia Frequent PVCs were noted with dobutamine infusion and post pharmacologic stress recovery interval. A 6 beat wide QRS complex run was noted early in the dobutamine infusion with a rate of 70-80bpm, consistent with aberrent conduction or ventricular origin. RESTING STUDY: The LV wall thickness is moderately increased (concentric). The qualitative LV EF is 55-59% (normal). The aortic valve has three leaflets. The aortic regurgitation jet is eccentric coursing across the anterior mitral valve leaflet. The jet is impinging the anterior motion of the leaflet. The aortic root and proximal ascending aorta are mildly enlarged. Compared to the prior study dated 08/31/15, the degree of aortic regurgitation is stable. Other Testing CAROTID ARTERY DUPLEX 05/01/18 IMPRESSION: Right carotid artery duplex examination indicates evidence of 50-69% stenosis of the ICA. Left carotid artery duplex examination indicates evidence of 50-69% stenosis of the ICA. Laboratory Results 08/07/18 13:35 08/07/18 13:35 Urine Color Yellow 08/07/18 Unknown Urine Appearance Clear (Clear) 08/07/18 Unknown Urine pH 7.0 (4.5-7.5) 08/07/18 Unknown Ur Specific Nixon 1.016 (1.000-1.030) 08/07/18 Unknown Urine Protein 2+ (Negative) H 08/07/18 Unknown Urine Glucose (UA) Negative (Negative) 08/07/18 Unknown Urine Ketones Negative (Negative) 08/07/18 Unknown Urine Nitrite Positive (Negative) H 08/07/18 Unknown Ur Leukocyte Esterase 2+ (Negative) H 08/07/18 Unknown Urine WBC (Auto) >30 /hpf (0-5) H 08/07/18 Unknown Urine RBC (Auto) 5-10 /hpf (0-4) H 08/07/18 Unknown U Hyaline Cast (Auto) 1-5 /lpf (0-5) 08/07/18 Unknown U Epithel Cells (Auto) 0-5 /lpf (0-5) 08/07/18 Unknown Urine Bacteria (Auto) 2+ (Negative) H 08/07/18 Unknown 08/07/18 Unknown Urine Culture - Preliminary Urine,Clean Catch Coag negative Staphylococcus Jo at Surgeon's office notified of UTI.
--- NOTE | 2018-08-07 14:19 | XRay Report ---
XR chest Pre-admission PA/Lat HISTORY: Preop. COMPARISON: Chest 10/25/2017. FINDINGS: No pneumothorax. No pleural effusions. The lungs are clear. The heart is normal in size. Po ststernotomy changes are noted. Moderate hiatus hernia, unchanged. IMPRESSION: No significant change compared to the prior study. No acute process. Electronically signed by: Gian Carvalho M.D. 08/07/2018 2:18 PM
[2018-08-07 14:23] LABS: Basophils % (auto) 1.4 %; Eosinophils % (auto) 2.9 %; Immature Granulocytes # (auto) 0.01 K/uL (0.00-0.02); Immature Granulocytes % (auto) 0.1 %; Lymphocytes # (auto) 2.01 K/uL (1.2-3.4); Lymphocytes % (auto) 28.8 %; Mean Corpuscular Hgb Conc 34.1 g/dL (32-36); Mean Corpuscular Volume 97.9 fL (80-100); Mean Platelet Volume 12.2 fL (7.4-10.4); Monocytes % (auto) 8.6 %; Neutrophils # (auto) 4.06 K/uL (1.4-6.5); Neutrophils % (auto) 58.2 %; Platelet Count 187 K/uL (130-400); RDW Coefficient of Variation 13.7 % (11.5-14.5); RDW Standard Deviation 49.3 fL (36.4-46.3); Red Blood Count 4.19 M/uL (4.7-6.1); White Blood Count 6.98 K/uL (4.8-10.8)
[2018-08-07 14:25] LABS: Appearance Urine Clear (Clear); Bacteria Urine Automated 2+ (Negative); Bilirubin Urine Negative (Negative); Blood Urine Negative (Negative); Color Urine Yellow; Epithelial Cell Urine Auto 0-5 /lpf (0-5); Glucose Urine UA Negative (Negative); Ketones Urine Negative (Negative); Leukocyte Esterase Urine 2+ (Negative); Nitrite Urine Positive (Negative); Protein Urine 2+ (Negative); Specific Gravity Urine 1.016 (1.000-1.030); Urobilinogen Urine Negative (Negative); WBC Urine Automated >30 /hpf (0-5)
[2018-08-07 14:37] LABS: BUN Creatinine Ratio 15.7 (10-20); Calcium 9.4 mg/dl (8.5-10.1); Creatinine Clr Calc Pharmacy 62.3 ml/min; Est GFR (African American) 68.6; Est GFR (Non-African American) 59.2; Potassium 4.4 mmol/L (3.5-5.1)
[~2018-08-14 12:53] MED LIST changes: -ACET-1256 PO; -ALLO100T PO; -ASCO500T16 PO; -ASPECOTC PO; -ATOR-22 PO; -CARV3.122 PO; -CO Q 10 PO; -DIPH1TAB87 PO; -FINA5TAB PO; -GLUC1500 PO; -LEVO150T PO; -LOSA1TAB PO; +LR 15ML/HR IV SCH; -MELATAB2 PO; -METO25TA3 PO; -MULT-506 PO; -NTRGSL/4 UT; -OMEG10007 PO; -PRLSR20 PO; -RIBO1TAB4 PO; -TAMS0.4C38 PO; -TRAZ50TA35 PO; -VITA400C49 PO; -VITAMIN D3 PO; +cefTRIAXone SODIUM 1,000 MG in DEXTROSE 5% 50 ML IV SCH
--- NOTE | 2018-08-14 14:37 | History & Physical Bridge Note ---
Date of Service August 14, 2018 History & Physical Bridge Note I have examined the patient, reviewed the History & Physical and in the interval since the performance of the History & Physical I have noted the following changes of clinical significance: no changes noted
[2018-08-14] MEDS ORDERED: ONDANSETRON INJ 2 MG/ML 2 ML VIAL ONE (15:10)
[2018-08-14] MEDS ORDERED: DEXAMETHASONE SOD INJ 4 MG/ML VIAL ONE (15:10)
[2018-08-14] MEDS ORDERED: LIDOCAINE HCL 2% 2 ML VIAL/AMP(20MG/ML) INFIL ONE (15:10)
[2018-08-14] MEDS ORDERED: MIDAZOLAM HCL 1 MG/ML 2ML VIAL ONE (15:10)
[2018-08-14] MEDS ORDERED: PROPOFOL IV EMULSION 10 MG/ML 20 ML VIAL IV ONE (15:10)
[2018-08-14] MEDS ORDERED: fentaNYL citrate 100 MCG/2 ML VIAL ONE (15:10)
[2018-08-14] MEDS ORDERED: ONDANSETRON INJ 2 MG/ML 2 ML VIAL IV PRN ×2 (15:27→17:55)
[2018-08-14] MEDS ORDERED: ATROPINE SULFATE 0.1 MG/ML 10ML SYR IV PRN (15:27)
[2018-08-14] MEDS ORDERED: PROMETHAZINE HCL 12.5 MG in SODIUM CHLORIDE 0.9% 50 ML IV PRN (15:27)
[2018-08-14] MEDS ORDERED: LABETALOL HCL IV 5 MG/ML 20ML IV PRN (15:27)
[2018-08-14] MEDS ORDERED: FLUMAZENIL 0.1 MG/1 ML 10 ML VIAL IV PRN (15:27)
[2018-08-14] MEDS ORDERED: ePHEDrine sulfate 50 MG/ML AMP IV PRN (15:27)
[2018-08-14] MEDS ORDERED: NALOXONE HCL 0.4 MG/1 ML VIAL/CARP IV PRN (15:27)
[2018-08-14] MEDS ORDERED: GLYCOPYRROLATE 0.2 MG/ML VIAL ONE (16:24)
--- NOTE | 2018-08-14 16:34 | Operative Report ---
Post Operative Report Pre & Post Diagnosis Operation Date: 08/14/18 14:20 Pre-Op Diagnosis: Benign Prostatic Hyperplasia w/Urinary Obstruction Post-Op Diagnosis: Benign Prostatic Hyperplasia w/Urinary Obstruction Procedure Operation Date: 08/14/18 14:20 Actual Procedures p Transurethral Resection of Prostate(Not Applicable) - Stuart No MD Surgeon Bala No MD Industrial Eng none Estimated Blood Loss 0 Findings Consistent with Post-Op Diagnosis Specimens none Description of Procedure Patient was identified in the preoperative holding area, appropriate informed consents reviewed and completed and the patient was transported to the operating suite. Upon arrival he received appropriate preoperative anti-medics in the form of ceftriaxone. Adequate general anesthesia was achieved and he was placed in dorsal lithotomy position where he was sterilely prepped and draped in standard fashion. To begin the case, I passed a 27 Chinese resectoscope with 30 degree lens and visual obturator. Inspection revealed no evidence of strictures, but he has had a prior resection of the prostate and has a subsequent bladder neck contracture as well as redundant tissue at the bladder neck. Inspection of the bladder revealed a heavily trabeculated, large capacity bladder. After my inspection I exchanged the visual rotary rig engine operator for resecting element using a button electrode. I began by incising the bladder neck contracture at 5 and 7:00 which appropriately open the bladder neck. I then resected the tissue between the 2 incisions as well as the lateral tissue on the left and then the right. This led to a widely patent prostatic urethra and bladder neck without encroachment upon the ureteral orifices. There was excellent hemostasis, I left the bladder full and removed the scope. I placed a 22 Chinese Chambers catheter without difficulty. He was subsequently extubated and taken to the PACU in stable condition. I attest to the content of the Intraoperative Record and any orders documented therein. Any exceptions are noted below.
--- OUTSIDE RECORDS SUMMARY | 2018-08-14 16:34 | External Medical Summary | Continuity of Care Document ---
:1940 Author Name Tricia Snyder, Provider Address Unavailable Unavailable , Care Team Providers Name Role Phone Bala No 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) Actinic keratosis (702.0) (L57.0) Seborrheic keratosis (702.19) (L82.1) Allergies and Adverse Reactions Morphine Derivatives (Allergy) Animal dander (Allergy) Dust (Allergy) Pollen (Allergy) Ragweed (Allergy) Medications Coenzyme Q10 60 MG CAPS Refills: 0 EQL [place] 3 Fish Oil 1200 MG Oral Capsule Refills: 0 Vitamin D3 5000 UNIT Oral Tablet Refills: 0 Vitamin C 1000 MG Oral Tablet Refills: 0 Levothyroxine Sodium 175 MCG Oral Tablet Refills: 0 Tamsulosin HCl - 0.4 MG Oral Capsule; TAKE 1 CAPSULE B edtime Lillian No Quantity: 90 Refills: 3 Levoxyl 150 MCG Oral Tablet; TAKE 1 TABLET DAILY DIRECTED . Refills: 0 Allopurinol 100 MG Oral Tablet; TAKE 2 TABLET Daily Quantity: 180 Refills: 1 Glucosamine Chondroitin Complx Oral Capsule Refills: 0 Finasteride 5 MG Oral Tablet; TAKE 1 TABLET DAILY. Lillian No Quantity: 90 Refills: 3 Melatonin 5 MG Oral Tablet Refills: 0 Multi Vitamin Daily TABS Refills: 0 Nitroglycerin 0.4 MG Sublingual Tablet Sublingual Refills: 0 PriLOSEC 40 MG CPDR Refills: 0 Riboflavin 400 MG Oral Tablet Refills: 0 Lipitor 20 MG Oral Tablet Refills: 0 traZODone HCl - 100 MG Oral Tablet Refills: 0 Vitamin E 400 UNIT Oral Capsule Refills: 0 Eliquis 5 MG Oral Tablet; Take 1 tablet twice daily Start: 13-Feb-2018 Quantity: 180 Refills: 3 Aspirin 325 MG Oral Tablet; TAKE 1 TABLET DAILY. Refills: 0 Ascorbic Acid 1000 MG Oral Tablet Refills: 0 Acetaminophen 500 MG Oral Tablet; TAKE 1 TABLET EVERY 4 TO 6 HOURS NEEDED. Refills: 0 Carvedilol 3.125 MG Oral Tablet Refills: 0 Benadryl 25 MG TABS Refills: 0 Nitrofurantoin Monohyd Macro 100 MG Oral Capsule; TAKE 1 CAPSULE EVERY 12 HOURS DAILY. KIKA Sinclair Start: 09-Aug-2018 Quantity: 9 Refills: 0 Procedures History of Appendectomy Status: Complete d History of Esophageal Dilation Status: C ompleted History of transurethral prostate incision Status: Completed Immunizations Immunizations not documented Family History Father Family history of diabetes mellitus (V18.0) (Z83.3) Status: Active Brother Family history of malignant neoplasm (V16.9) (Z80.9) Status: Active Social History - Smoking Status Former smoker Plan of Treatment Planned Encounters Appointment; Bala No M.D. Start: 03-Sep-2018 11:00 Request Planned Observations Planned Goals not documented Results Urine Culture 07-Aug-2018 0:00 URINE CULTURE CATH ORDERED P ROCEDURE : Urine Culture; Speciment : Urine,Clean Catch Urine Culture : Coag ne gative Staphylococcus [place] Count\ S\[place] Count >100,000 S\S\Sens Sensitivities to Follow S = SENS ITIVE I = INTERMEDIATE R = RESISTANT ORGANISM : Positive Combo 33 Daptomycin : S <=0.5Nitrofurantoin : S <=32Oxacillin : R >2Tetr acycline : S <=4Trimethoprim/Sulfamethox azole : S <=0.5/9.5Vancomycin : S 1 Vital Signs 08-Aug-2018 10:24 Systolic 142 mm[Hg] Diastolic 58 mm[Hg] Weight 204.5625 lb Height 73 in BSA Calculated 2.17 m2 BMI Calculated 26.99 kg/m2 Heart Rate 68 /min 07-Aug-2018 11:59 Systolic 173 mm[Hg] Comments: Location: RUE; Position: Sitting Diastolic 65 mm[Hg] Comments: Location: RUE; Position: Sitting Heart Rate 62 /min Encounters Appointment; Bala No M.D. 14-Aug-2018 12:00 Encounter Diagnosis: Problem not documented Appointment; Pinky Bowers DO 08-Aug-2018 10:30 Encounter Diagnosis: Problem not documented Appointment; Bala No M.D. 07-Aug-2018 10:50 Encounter Diagnosis: Problem not documented Appointment; Bala No M.D. 27-Apr-2018 9:10 Encounter Diagnosis: Problem not documented Appointment; Urology, Room 7 27-Apr-2018 9:00 Encounter Diagnosis: Problem not documented Appointment; Bala No M.D. 04-Apr-2018 14:10 Encounter Diagnosis: Problem not documented Appointment; Bala oN M.D. 19-Feb-2018 11:40 Encounter Diagnosis: Problem not documented Appointment; Pinky Bowers DO 13-Feb-2018 9:15 Encounter Diagnosis: Problem not documented Appointment; Akosua Snyder PA-C 12-Sep-2017 16:00 Encounter Diagnosis: Problem not documented Appointment; Hans Emerson M.D. 01-Dec-2016 11:30 Encounter Diagnosis: Problem not documented Appointment; Bala No M.D. 03-Sep-2018 11:00 Encounter Diagnosis: Problem not documented
[2018-08-14] MEDS: fentaNYL citrate 100 MCG/2 ML VIAL IV PRN ×4 (16:57→17:12)
--- NOTE | 2018-08-14 17:14 | Anesthesiology Progress Note ---
Date of Service August 14, 2018 Anesthesia Post Procedure Vital Signs Vital Signs: Temp Pulse Resp BP Pulse Ox 08/14/18 17:05 61 18 163/69 H 99 08/14/18 16:55 64 19 153/60 H 99 08/14/18 16:45 36.3 C L 69 17 160/73 H 99 08/14/18 16:35 36.3 C L 77 17 159/74 H 99 08/14/18 16:28 36.3 C L 68 16 151/68 H 97 08/14/18 13:20 36.6 C 56 L 18 154/60 H 95 Pain Intensity Abdomen: Pain Intensity: 5 Transfer of Care Handoff Completed per policy Notes Mental Status: alert / awake / arousable and participated in evaluation Patient Amnestic to Procedure: Yes Nausea / Vomiting: adequately controlled Pain: adequately controlled Airway Patency, RR, SpO2: stable & adequate BP & HR: stable & adequate Hydration State: stable & adequate Anesthetic Complications: no major complications apparent and Pt Satisfied with anesthetic care
[2018-08-14] MEDS ORDERED: ACETAMINOPHEN 325 MG TAB PO PRN (17:55)
[2018-08-14] MEDS: ASCORBIC ACID 500 MG TAB PO SCH (19:53)
[2018-08-14] MEDS: CHOLECALCIFEROL 1,000 UNITS TAB PO SCH (19:55)
[2018-08-14] MEDS: CARVEDILOL 3.125 MG TAB PO SCH (19:56)
[2018-08-14] MEDS: ALLOPURINOL 100 MG TAB PO SCH (19:57)
[2018-08-14] MEDS: MULTIVITAMIN TAB PO SCH (19:57)
[2018-08-14] MEDS: CEFAZOLIN 1000MG 1,000 MG/7.5 ML SYR IV SCH (19:58)
[2018-08-14] MEDS ORDERED: NON-FORMULARY MEDICATION (Melatonin 5 MG) PO SCH (21:00)
[2018-08-14] MEDS ORDERED: TRAZODONE HCL 50 MG TAB PO SCH (21:00)
[2018-08-14] MEDS ORDERED: ATORVASTATIN 20 MG TAB PO SCH (21:00)
[2018-08-14] MEDS ORDERED: ASPIRIN 81 MG ECTAB PO SCH (21:00)
[2018-08-14] MEDS: LACTATED RINGER'S 1,000 ML IV SCH (21:32)
[2018-08-15] MEDS: CEFAZOLIN 1000MG 1,000 MG/7.5 ML SYR IV SCH (03:43)
[2018-08-15] MEDS ORDERED: LEVOTHYROXINE SODIUM 175 MCG TABLET PO SCH (06:30)
[2018-08-15 06:37] LABS: Basophils # (auto) 0.01 K/uL (0-0.2); Basophils % (auto) 0.1 %; Hemoglobin 13.5 g/dL (14.0-18.0); Immature Granulocytes # (auto) 0.02 K/uL (0.00-0.02); Immature Granulocytes % (auto) 0.2 %; Lymphocytes # (auto) 0.92 K/uL (1.2-3.4); Lymphocytes % (auto) 9.9 %; Mean Corpuscular Hgb Conc 35.5 g/dL (32-36); Mean Corpuscular Volume 97.2 fL (80-100); Mean Platelet Volume 11.6 fL (7.4-10.4); Monocytes # (auto) 0.34 K/uL (0.11-0.59); Monocytes % (auto) 3.6 %; Neutrophils # (auto) 8.04 K/uL (1.4-6.5); Neutrophils % (auto) 86.2 %; Platelet Count 169 K/uL (130-400); RDW Coefficient of Variation 13.3 % (11.5-14.5); Red Blood Count 3.91 M/uL (4.7-6.1); White Blood Count 9.33 K/uL (4.8-10.8)
[2018-08-15 07:03] LABS: BUN Creatinine Ratio 15.5 (10-20); Calcium 8.8 mg/dl (8.5-10.1); Creatinine Clr Calc Pharmacy 49.9 ml/min; Est GFR (African American) 57.8; Est GFR (Non-African American) 49.8; Potassium 4.4 mmol/L (3.5-5.1)
--- NOTE | 2018-08-15 07:50 | Urology Progress Note ---
Date of Service August 15, 2018 Assessment & Plan (1) Urinary retention: POD #1 s/p TURP and incision of BNC - voiding trial now - performs CIC at home - if necessary can continue cathing - resumed eliquis on Monday - ASA today - d/c home later Subjective s/p incisions of bladder neck and TURP - no major issues overnight - catheter draining well Physical Exam Physical Exam: NAD AFVSS abd soft urine clear Results & Data Vital Signs (Past 12 Hours) Vital Signs Temp Pulse Resp BP Pulse Ox 08/15/18 04:19 36.7 C 52 L 18 132/60 93 08/14/18 23:33 36.5 C 56 L 18 146/65 H 94 08/14/18 21:04 36.5 C 61 18 150/66 H 95 08/14/18 19:53 36.6 C 63 18 173/71 H 95
[2018-08-15] MEDS: CHOLECALCIFEROL 1,000 UNITS TAB PO SCH (08:35)
[2018-08-15] MEDS: ASCORBIC ACID 500 MG TAB PO SCH (08:35)
[2018-08-15] MEDS: ALLOPURINOL 100 MG TAB PO SCH (08:35)
[2018-08-15] MEDS: CARVEDILOL 3.125 MG TAB PO SCH (08:35)
[2018-08-15] MEDS ORDERED: COENZYME Q10 60 MG PO SCH (09:00)
[2018-08-15] MEDS ORDERED: PANTOprazole 40 MG TAB PO SCH (09:00)
[2018-08-15] MEDS: MULTIVITAMIN TAB PO SCH (10:13)
[2018-08-15] MEDS: LACTATED RINGER'S 1,000 ML IV SCH (10:17)
--- NOTE | 2018-08-15 10:21 | Anesthesiology Progress Note ---
Date of Service August 15, 2018 Anesthesia Post Procedure Vital Signs Vital Signs: Temp Pulse Pulse Resp BP BP Pulse Ox 08/15/18 08:38 62 08/15/18 07:40 36.5 C 58 L 18 138/56 L 92 08/15/18 04:19 36.7 C 52 L 18 132/60 93 08/14/18 23:33 36.5 C 56 L 18 146/65 H 94 08/14/18 21:04 36.5 C 61 18 150/66 H 95 08/14/18 19:53 36.6 C 63 18 173/71 H 95 08/14/18 18:58 36.7 C 63 18 155/61 H 95 08/14/18 18:27 36.3 C L 55 L 18 171/66 H 98 08/14/18 17:50 36.5 C 54 L 14 175/63 H 97 08/14/18 17:35 36.6 C 59 L 18 186/73 H 100 08/14/18 17:25 36.6 C 61 19 183/79 H 98 08/14/18 17:22 36.6 C 62 16 177/83 H 100 08/14/18 17:15 64 19 165/73 H 98 08/14/18 17:05 61 18 163/69 H 99 08/14/18 16:55 64 19 153/60 H 99 08/14/18 16:45 36.3 C L 69 17 160/73 H 99 08/14/18 16:35 36.3 C L 77 17 159/74 H 99 08/14/18 16:28 36.3 C L 68 16 151/68 H 97 08/14/18 13:20 36.6 C 56 L 18 154/60 H 95 Pain Intensity Abdomen: Pain Intensity: 0 Notes Mental Status: alert / awake / arousable and participated in evaluation Patient Amnestic to Procedure: Yes Nausea / Vomiting: adequately controlled Pain: adequately controlled Airway Patency, RR, SpO2: stable & adequate BP & HR: stable & adequate Hydration State: stable & adequate Anesthetic Complications: no major complications apparent
--- NOTE | 2018-08-24 07:23 | Discharge Summary ---
Date of Service August 24, 2018 Admission HPI Per Admitting Provider Patient with urinary retention admitted for TURP Principal Diagnosis Urinary retention Discharge Data Allergies Allergy/AdvReac Type Severity Reaction Status Date / Time morphine Allergy Mild ITCHING Verified 08/14/18 13:15 Procedures Performed Operation Date: 08/14/18 14:20 Actual Procedures p Transurethral Resection of Prostate(Not Applicable) - Stuart No MD Hospital Course (1) Urinary retention: Patient admitted for TURP to alleviate his urinary retention, details of the procedure as dictated previously in the operative report. In summary, he did very well overnight. His urine was clear and his catheter was removed on the morning of postoperative day 1. He was subsequently discharged home. Total Time Total Time Spent Total Time Spent (In Minutes): 15 Total Time Includes: Examination of the Patient and Discharge Planning Discharge Plan Discharge Items Patient Disposition: Home - Self-Care Reason For Visit: Benign Prostatic Hyperplasia w/Urinary Obstruction Discharge Diagnosis: Benign prostatic hyperplasia with urinary obstruction Discharge Goals: Diagnostic testing, Improve disease control and Learn about illness Activity: Per 'Additional Instructions' section Activity Comment: gradually increase activity, take it easy for the first few weeks. Lifting: No more than 25 pounds Bathing: No limitations Bathing Comment: Okay to shower. No tub baths/soaking with catheter in place. Sexual Activity: Wait until after follow-up appointment Exercise/Sports: Rest today and Gradually increase as tolerated Exercise Comment: With more activity you may notice more blood in your urine. Driving/Machine Use: Resume 1 day after discharge Driving/Machine Use Comment: Please do not drive with prescription pain medication. Non-emergency contact: Urologist Call non-emergency contact if: you have any medication questions, your symptoms worsen, your pain is not controlled, your pain is unusual for you and your temperature is above 101 Follow-up/Referrals: Stuart No MD [Physician] - 09/03/18 11:00 am (09/03/18 @11am - [facility] [place] Urology Follow-Up with Dr. No) Yanick Canseco, [Primary Care Provider] - Diet: Regular Addtl Provider Instructions: Please take all medications as prescribed and keep follow-ups as scheduled. Please call our office at [phone] with any questions, concerns or need to reschedule appointments for any reason. We are happy to assist you. You may restart your eliquis on Monday. Okay to restart baby aspirin tomorrow. Complete ciprofloxacin as prescribed (for 3 days) to prevent UTI. Okay to straight cath as needed if you feel you are not emptying well. It is okay to take AZO (available over the counter) as needed for a few days to relieve burning with urination. This may cause your urine or feces to turn an orangish-color. This is expected. The only exception is if you have been prescribed Pyridium (phenazopyridine), this is the same medication and should not take AZO be taken in addition to prescription version. Please do not drive, drink alcohol or operate machinery while taking prescription pain medication. We recommend continuing a stool softener (i.e. Colace) to prevent constipation/straining for at least two weeks after your procedure. Some blood is to be expected in your urine as you heal, you may even see recurrences of blood in your urine for up to 4-6 months after your procedure. You may also experience urgency and frequency of urination for the first few weeks after surgery while your tissue heals. Please try not to be too discouraged by this, it will get better with time. Drink plenty of fluids, avoid sexual or strenuous exercise and do not lift >25 pounds until your follow-up. Call [facility] [place] Urology at [phone] promptly if you experience: Fever of 101F or greater Pain thats not controlled with medicine Trouble urinating or inability to urinate Dark, bloody urine for more than 12 hours Prescriptions: New ciprofloxacin HCl 500 mg tablet 500 mg PO BID Qty: 6 RF: 0 docusate sodium [Colace] 100 mg capsule 100 mg PO BID Qty: 60 RF: 0 Continued multivitamin Tablet 1 tab PO BID RF: 0 levothyroxine 175 mcg Tablet 175 mcg PO QAM RF: 0 ascorbic acid (vitamin C) [Vitamin C] 1,000 mg Tablet 1 g PO BID RF: 0 atorvastatin 20 mg Tablet 20 mg PO PM RF: 0 trazodone 50 mg Tablet 50 mg PO HS RF: 0 allopurinol 100 mg Tablet 100 mg PO BID RF: 0 omeprazole 40 mg Capsule,Delayed Release(Dr/Ec) 40 mg PO QAM RF: 0 aspirin [Aspirin Low Dose] 81 mg Tablet,Delayed Release (Dr/Ec) 81 mg PO QPM RF: 0 carvedilol 3.125 mg Tablet 3.125 mg PO BID RF: 0 vitamin E 400 unit Capsule 400 unit PO 2XWK RF: 0 coenzyme Q10 [CoQ-10] 30 mg Capsule 60 mg PO QAM RF: 0 melatonin 5 mg Tablet 5 mg PO HS RF: 0 fish,bora,flax oils-om3,6,9no1 [[place] 3-6-9 Complex] 400-400-400 mg Capsule 1 cap PO BID RF: 0 cholecalciferol (vitamin D3) [Vitamin D3] 5,000 unit Tablet 5,000 unit PO BID RF: 0 Glucosamine-Chondroitin 3X 1 tab PO QAM RF: 0 Discontinued tamsulosin 0.4 mg Capsule 0.4 mg PO QPM RF: 0 finasteride 5 mg Tablet 5 mg PO QAM RF: 0 Eliquis 5 mg Tablet 5 mg PO BID RF: 0 Stand-Alone Forms: [facility] Discharge Orders: Discharge Order (Routine); Ordered 08/15/18 Ordered By: Argenis Daniel Admission Data Admit Date/Time: 08/14/18 16:30 Attending Provider: Stuart No Admit Provider: Stuart No Primary Care Provider: Yanick Canseco Service: Surgical Services Other Interventions: Discharge Summary Assessment (RN) Last Done: 08/15/18 10:20 DC Date/Time DO NOT enter until pt leaves facility: 08/15/18 12:50
== END 2018-08-15 12:50 | disposition home or self-care (01) ==
LOC: ASU 12:53 → 3W 12:53

== ENCOUNTER 2022-03-16 14:31 | Inpatient (IN) ==
[2022-03-16 15:35] LABS: Basophils # (auto) 0.12 K/uL (0-0.2); Basophils % (auto) 1.9 %; Eosinophils # (auto) 0.23 K/uL (0-0.50); Eosinophils % (auto) 3.6 %; Hematocrit (blood only) 47.7 % (40.1-51.0); Hemoglobin 16.3 g/dl (14.0-18.0); Immature Granulocytes # (auto) 0.03 K/uL (0.00-0.02); Immature Granulocytes % (auto) 0.5 %; Lymphocytes # (auto) 1.64 K/uL (1.2-3.4); Lymphocytes % (auto) 25.5 %; Mean Corpuscular Hemoglobin 34.5 pg (25.0-34.0); Mean Corpuscular Hgb Conc 34.2 g/dL (32.0-36.0); Mean Corpuscular Volume 100.8 fL (80.0-100.0); Mean Platelet Volume 12.4 fL (9.4-12.4); Monocytes # (auto) 0.65 K/uL (0.24-0.82); Monocytes % (auto) 10.1 %; Neutrophils # (auto) 3.77 K/uL (1.4-6.5); Neutrophils % (auto) 58.4 %; Platelet Count 172 K/uL (130-400); RDW Coefficient of Variation 13.2 % (11.5-14.5); RDW Standard Deviation 48.7 fL (36.4-46.3); Red Blood Count 4.73 M/uL (4.63-6.08); White Blood Count 6.44 K/ul (4.8-10.8)
[2022-03-16 15:57] LABS: INR 1.1 (0.9-1.1); Partial Thromboplastin Ratio 1.1; Partial Thromboplastin Time 29.6 Seconds (21.0-31.0); Prothrombin Time 11.4 Seconds (9.0-12.0)
[2022-03-16 16:00] LABS: Albumin Globulin Ratio 1.3 (0.9-2); Albumin Level 3.9 gm/dl (3.4-5.0); BUN Creatinine Ratio 21.1 (10-20); Bilirubin,Total 0.8 mg/dl (0.2-1.0); Calcium 9.7 mg/dl (8.5-10.1); Creatinine Clr Calc Pharmacy 44.8 ml/min; Est GFR (African American) 53.3 ml/min; Globulin 3.1 gm/dl (2.5-4.0); Potassium 4.4 mmol/L (3.5-5.1)
[2022-03-16 16:02] LABS: Troponin I High Sensitivity 14.6 pg/ml (0-20)
--- NOTE | 2022-03-16 16:10 | XRay Report ---
XR chest 2V PA/lateral HISTORY: 82 years-old Male Chest Pain acute chest pain COMPARISON: Chest radiograph 03/15/2022 TECHNIQUE: PA and lateral views of the chest FINDINGS: Cardiac silhouette is enlarged. Prior median sternotomy. No pneumothorax, pleural effusion, airspace consolidation or overt pulmonary edema. Mild hyperinflation with diaphragmatic flattening. Degenerati ve changes of the shoulders and spine. Hiatal hernia. Descending thoracic aortic tortuosity. IMPRESSION: Cardiomegaly without acute process. ACT 112: Negative or not required by law. The above report was generated using voice recognition software. It may contain grammatical, syntax o r spelling errors. Electronically signed by: Kevin Barksdale M.D. 03/16/2022 4:09 PM
--- NOTE | 2022-03-16 16:25 | Emergency Department Note ---
Impression & Plan Atrial fibrillation, Hypertension ED Provider Note NAME: ADELAIDE ESQUIVEL AGE: 82 SEX: M : 1940 ARRIVES VIA: Walk-In INFORMANT: Patient ED PROVIDER(S): Sumit Castro DO CHIEF COMPLAINT: Afib and weakness HPI: Patient is an 82-year-old gentleman with a past medical history of CAD who presents to the ER for A. fib. He was seen and evaluated yesterday as he felt his heart racing about 2 hours prior to coming in. He was found to be in A. fib with RVR but his heart rate trended down on its own. He was seen by the hospitalist and discharged. He presents for feeling weak and rundown. He denies any chest pain. No belly pain, nausea, vomiting, or diarrhea. He did vomit once today. He feels very tired and lethargic. No other exacerbating or remitting factors. He has been taking his new dose of Coreg. ROS: See above HPI for pertinent positives & negatives. A total of 10 systems reviewed and were otherwise negative. PAST MEDICAL HISTORY:See Below PAST SURGICAL HISTORY:See Below FAMILY HISTORY:See Below SOCIAL HISTORY:See Below HOME MEDICATIONS:See Below ALLERGIES:See Below VITALS:See Below PHYSICAL EXAMINATION: GENERAL: Sitting up in bed, alert, well appearing, well nourished, no distress, non-toxic EYE EXAM: normal conjunctiva. OROPHARYNX: no exudate, no erythema, lips, buccal mucosa, and tongue normal and mucous membranes are moist NECK: supple, no nuchal rigidity, no adenopathy, non-tender LUNGS: Clear to auscultation. Normal chest wall mechanics HEART: Irregular regular, S1 normal and S2 normal ABDOMEN: abdomen soft, non-tender, normo-active bowel sounds, no masses, no rebound or guarding. UPPER EXTREMITIES: upper extremities are grossly normal. LOWER EXTREMITIES: No pitting edema. NEURO EXAM: Normal sensorium, cranial nerves II-XII grossly intact, normal speech, no gross weakness of arms, no gross weakness of legs. MEDICAL DECISION MAKING: Patient is an 82-year-old male who presents the ER for not feeling well. Yesterday he felt himself going to A. fib. He presented and was evaluated. He was initially admitted by the hospitalist but then discharged as she was rate controlled. He comes back today as he is feeling very weak and rundown. EKG does show A. fib. He denies any headache or change in vision. No chest pain or shortness of breath. No belly pain but did vomit once. IV was established blood work was obtained. Labs show no significant leukocytosis or anemia. INR unremarkable. BMP with creatinine 1.4. Troponin negative at 14. TSH was unremarkable. COVID was negative. Patient was discussed with Dr. Navya Garza for further evaluation. Triage Nursing notes reviewed. Limited review of prior medical records performed Vital Signs: reviewed and remarkable for no significant abnormalities Differential diagnosis: Differential diagnoses includes but is not limited to pneumonia, bronchitis, COPD/Asthma exacerbation, pneumothorax, pulmonary embolism, congestive heart failure, acute coronary syndrome ER treatment provided: See below Diagnostics interpreted by me: ECG: A. fib with RVR rate of 106 Normal axis Septal Q waves ST depressions and T wave inversions in the lateral leads QTC 395 Cardiac Monitoring: An order was placed for continuous cardiac monitoring. The monitor shows a rate of 82 with afib rhythm. Laboratory studies: As stated above and show below. Imaging studies: Portable AP upright 1 view the chest unremarkable Consultation(s): As described above Procedures: none Critical Care: None Past Med/Surg History Medical History (Updated 03/16/22 @ 22:29 by Sumit Castro DO) Abdominal aortic ectasia Per aortic duplex 10/10/19= There is evidence of a 3.5 cm x 3.5 cm abdominal aortic aneurysm. Color Doppler imaging demonstrates flow consistent with a patent lumen at and distal to the aortic aneurysm. Aortic insufficiency severe per cardio records Atrial fibrillation Patient was previously anticoagulated with Eliquis. This was since discontinued by cardiology 04/2019 d/t no a. fib noted on Holter monitor/no known recurrence. Patient on ASA and beta viv. BPH (benign prostatic hyperplasia) CAD (coronary artery disease) s/p CABG x4 (2007) Repeat cath in 2010 showed occlusion of the vein graft to obtuse marginal per cardio records Carotid artery disease Bilateral ICAs 50-69% per 08/2019 carotid duplex CKD (chronic kidney disease), stage III Esophageal cancer Around 2006 or 2008- s/p esophagectomy- no chemo or XRT GERD (gastroesophageal reflux disease) Well controlled and stable Gout Hearing deficit Hx of myocardial infarction 2007 Hyperlipidemia Hypertension Hypothyroidism Sleep apnea CPAP, was previously using it every night but for the past month has not been able to tolerate it. Vertebral osteomyelitis Surgical History History of appendectomy History of cardiac cath X 1 SINCE 2007-NO STENTS PLACED-F/U DR JOSE LUIS BENITEZ History of colonoscopy History of esophagogastroduodenoscopy (EGD) History of left cataract extraction 10/22/2019 History of right cataract surgery 10/08/2019. 2mg versed. Hx of esophagectomy d/t esophageal cancer (~2006) Hx of heart bypass surgery 4 vessels - 2008 Hx of transurethral resection of prostate x3 Family History Father Family history of diabetes mellitus Other No family history of adverse response to anesthesia Social History Smoking Status: Former smoker Cigarettes Per Day: SMOKED ~1PPD X 15 YEARS; Second Hand Exposure: No; Do You Dip or Chew Tobacco: No; Hx Alcohol Use: Yes Alcohol type: beer Hx Substance Use: No Preferred Language: Slovenian Communication Ability: Effective Restaurant Front Manager Required: No Beliefs That Will Affect Care: None Current Living Situation: Spouse Other Information That Helps Us Care for You: No Feels Safe at Home: Yes Safety Concerns: Feels Safe At This Time Assistive Devices: Denture - Lower, Glasses and Hearing Aid - Bilateral Allergies Allergies Allergy/AdvReac Type Severity Reaction Status Date / Time ragweed pollen Allergy Intermediate Sneezing Verified 02/21/22 10:59 animal dander Allergy Mild itchy Verified 02/21/22 10:59 house dust Allergy Mild Sneezing Verified 02/21/22 10:59 morphine Allergy Mild ITCHING, Verified 02/21/22 10:59 severe N/V pollen extracts Allergy Mild Sneezing Verified 02/21/22 10:59 Home Meds Home Medications Medication Instructions Recorded Confirmed allopurinol 100 mg tablet 100 mg PO BID 07/30/18 03/16/22 ascorbic acid (vitamin C) 1,000 mg 1,000 mg PO BID 07/30/18 03/16/22 tablet (Vitamin C) aspirin 81 mg tablet,delayed 81 mg PO HS 07/30/18 03/16/22 release (Heide Low Dose Aspirin) cholecalciferol (vitamin D3) 125 5,000 unit PO DAILY 07/30/18 03/16/22 mcg (5,000 unit) tablet (Vitamin D3) fish, borage, flaxseed oils-omega 1 cap PO BID 07/30/18 03/16/22 3,6,9 cb #1 400 mg-400 mg-400 mg cap ([place] 3-6-9 Complex) multivitamin 2 tab PO BID 07/30/18 03/16/22 omeprazole 40 mg capsule,delayed 40 mg PO QAM 07/30/18 03/16/22 release vitamin E 268 mg (400 unit) capsule 400 unit PO 2XWK 07/30/18 03/16/22 acetaminophen 500 mg tablet 1,000 mg PO Q6H PRN Pain 09/19/19 03/16/22 glucosamine sulfate 500 mg tablet 1,000 mg PO DAILY 09/19/19 03/16/22 (Glucosamine) nitroglycerin 0.4 mg sublingual 0.4 mg sublingual Q5M PRN Pain 10/09/19 03/16/22 tablet coQ10 (ubiquinol) 100 mg capsule 100 mg PO DAILY 06/05/20 03/16/22 apixaban 2.5 mg tablet (Eliquis) 2.5 mg PO BID 03/15/22 03/16/22 atorvastatin 20 mg tablet 20 mg PO DAILY 03/15/22 03/16/22 carvedilol 6.25 mg tablet 6.25 mg PO UD 03/15/22 03/16/22 levothyroxine 175 mcg tablet 175 mcg PO DAILY 03/15/22 03/16/22 amlodipine 2.5 mg tablet 2.5 mg PO DAILY 03/16/22 03/16/22 Results & Data (ED) Vital Signs Vital Signs - 24 hr 03/16/22 14:42 03/16/22 16:14 Temperature 36.6 C Temperature Source Temporal Artery Scan Pulse Rate 113 H Pulse Rate [Apical] 86 Pulse Rhythm [Apical] Irregular Pulse Strength [Apical] Normal Respiratory Rate 18 18 Respiratory Effort / Characteristics Non-Labored Non-Labored Respiratory Depth Normal Normal Respiratory Pattern Regular Regular Blood Pressure 127/70 Blood Pressure [Right Arm] 135/77 Blood Pressure Mean 89 Blood Pressure Mean [Right Arm] 96 Blood Pressure Position Sitting Pulse Oximetry 95 93 Oxygen Delivery Method Room Air Room Air Sepsis Recent Fever Within 48 Hours No Sepsis New/Unexplained Change in Mental Status No Sepsis Action Taken by Nursing No Action Required Laboratory Data Result diagrams: 03/16/22 15:10 03/16/22 15:10 Lab Results 03/16/22 03/16/22 03/16/22 Range/Units 15:10 15:10 15:10 WBC 6.44 (4.8-10.8) K/ul RBC 4.73 (4.63-6.08) M/uL Hgb 16.3 (14.0-18.0) g/dl Hct 47.7 (40.1-51.0) % MCV 100.8 H (80.0-100.0) fL MCH 34.5 H (25.0-34.0) pg MCHC 34.2 (32.0-36.0) g/dL RDW Std Deviation 48.7 H (36.4-46.3) fL RDW Coeff of Daniela 13.2 (11.5-14.5) % Plt Count 172 (130-400) K/uL MPV 12.4 (9.4-12.4) fL Immature Gran % (Auto) 0.5 % Neut % (Auto) 58.4 % Lymph % (Auto) 25.5 % [place] % (Auto) 10.1 % Eos % (Auto) 3.6 % Baso % (Auto) 1.9 % Neut # (Auto) 3.77 (1.4-6.5) K/uL Lymph # (Auto) 1.64 (1.2-3.4) K/uL [place] # (Auto) 0.65 (0.24-0.82) K/uL Eos # (Auto) 0.23 (0-0.50) K/uL Baso # (Auto) 0.12 (0-0.2) K/uL Immature Gran # (Auto) 0.03 H (0.00-0.02) K/uL PT 11.4 (9.0-12.0) Seconds INR 1.1 (0.9-1.1) APTT 29.6 (21.0-31.0) Seconds PTT Ratio 1.1 Sodium 137 (136-145) mmol/L Potassium 4.4 (3.5-5.1) mmol/L Chloride 106 (98-107) mmol/L Carbon Dioxide 24 (21-32) mmol/L Anion Gap 7 (3-11) BUN 30 H (6-23) mg/dl Creatinine 1.42 H (0.6-1.4) mg/dl Est Cr Clr Drug Dosing 44.8 ml/min Est GFR ( Amer) 53.3 ml/min Est GFR (Non-Af Amer) 46.0 ml/min BUN/Creatinine Ratio 21.1 H (10-20) Glucose 90 (70-99(Fasting)) mg/dl Calcium 9.7 (8.5-10.1) mg/dl Total Bilirubin 0.8 (0.2-1.0) mg/dl AST 19 (13-39) U/L ALT 12 (7-52) U/L Alkaline Phosphatase 50 (34-104) U/L Troponin I High Sens 14.6 (0-20) pg/ml Total Protein 7.0 (6.0-8.3) gm/dl Albumin 3.9 (3.4-5.0) gm/dl Globulin 3.1 (2.5-4.0) gm/dl Albumin/Globulin Ratio 1.3 (0.9-2) TSH (0.300-4.500) uIu/ml 03/16/22 Range/Units 15:20 WBC (4.8-10.8) K/ul RBC (4.63-6.08) M/uL Hgb (14.0-18.0) g/dl Hct (40.1-51.0) % MCV (80.0-100.0) fL MCH (25.0-34.0) pg MCHC (32.0-36.0) g/dL RDW Std Deviation (36.4-46.3) fL RDW Coeff of Daniela (11.5-14.5) % Plt Count (130-400) K/uL MPV (9.4-12.4) fL Immature Gran % (Auto) % Neut % (Auto) % Lymph % (Auto) % [place] % (Auto) % Eos % (Auto) % Baso % (Auto) % Neut # (Auto) (1.4-6.5) K/uL Lymph # (Auto) (1.2-3.4) K/uL [place] # (Auto) (0.24-0.82) K/uL Eos # (Auto) (0-0.50) K/uL Baso # (Auto) (0-0.2) K/uL Immature Gran # (Auto) (0.00-0.02) K/uL PT (9.0-12.0) Seconds INR (0.9-1.1) APTT (21.0-31.0) Seconds PTT Ratio Sodium (136-145) mmol/L Potassium (3.5-5.1) mmol/L Chloride (98-107) mmol/L Carbon Dioxide (21-32) mmol/L Anion Gap (3-11) BUN (6-23) mg/dl Creatinine (0.6-1.4) mg/dl Est Cr Clr Drug Dosing ml/min Est GFR ( Amer) ml/min Est GFR (Non-Af Amer) ml/min BUN/Creatinine Ratio (10-20) Glucose (70-99(Fasting)) mg/dl Calcium (8.5-10.1) mg/dl Total Bilirubin (0.2-1.0) mg/dl AST (13-39) U/L ALT (7-52) U/L Alkaline Phosphatase (34-104) U/L Troponin I High Sens (0-20) pg/ml Total Protein (6.0-8.3) gm/dl Albumin (3.4-5.0) gm/dl Globulin (2.5-4.0) gm/dl Albumin/Globulin Ratio (0.9-2) TSH 0.380 (0.300-4.500) uIu/ml Administered Medications Allopurinol (Allopurinol 100 Mg Tab) 100 mg PO BID MIRIAM Stop: 04/15/22 20:59 Last Admin: 03/16/22 20:35 Dose: 100 mg Documented By: TNK Apixaban (Apixaban 2.5 Mg Tab) 2.5 mg PO BID MIRIAM Stop: 04/15/22 20:59 Last Admin: 03/16/22 20:35 Dose: 2.5 mg Documented By: TNK Aspirin (Aspirin 81 Mg Ectab) 81 mg PO HS MIRIAM Stop: 04/15/22 20:59 Last Admin: 03/16/22 20:35 Dose: 81 mg Documented By: TNK Discontinued Medications Sodium Chloride (Nss) 500 mls @ 999 mls/hr IV .Q31M ONE Stop: 03/16/22 17:02 Last Infusion: 03/16/22 17:03 Dose: 0 mls/hr Documented By: Admin: 03/16/22 16:39 Dose: 999 mls/hr Documented By: SHIVAM Imaging Data Radiologist's Impression: Chest X-Ray 03/16/22 14:45 XR chest 2V PA/lateral HISTORY: 82 years-old Male Chest Pain acute chest pain COMPARISON: Chest radiograph 03/15/2022 TECHNIQUE: PA and lateral views of the chest FINDINGS: Cardiac silhouette is enlarged. Prior median sternotomy. No pneumothorax, pleural effusion, airspace consolidation or overt pulmonary edema. Mild hyperinflation with diaphragmatic flattening. Degenerative changes of the shoulders and spine. Hiatal hernia. Descending thoracic aortic tortuosity. IMPRESSION: Cardiomegaly without acute process. ACT 112: Negative or not required by law. The above report was generated using voice recognition software. It may contain grammatical, syntax or spelling errors. Electronically signed by: Kevin Barksdale M.D. 03/16/2022 4:09 PM Discharge Plan Visit Data Chief Complaint: Illness Stated Complaint: AFIB ED Provider: Sumit Castro Discharge Problem: Atrial fibrillation, Hypertension Patient Disposition: Admitted As Inpatient Discharge Instructions Interventions: ED Discharge Assessment Last Done: 03/16/22 18:36
[2022-03-16] MEDS ORDERED: SODIUM CHLORIDE 0.9% 500 ML IV ONE (16:32)
--- NOTE | 2022-03-16 17:05 | History & Physical Report ---
Date of Service March 16, 2022 Assessment & Plan (1) Atrial fibrillation with RVR: Plan: Patient is 82-year-old male with PMH atrial fibrillation anticoagulated on Eliquis, severe aortic insufficiency, HTN, dyslipidemia, CAD s/p CABG x4 in 2007, CKD III, history AAA, hypothyroidism, chronic urinary retention requiring self catheterization, EMILY presented to ER today with complaint of palpitations and weakness. In ER 03/15/2022 for palpitations and found to be in atrial fibrillation initial HR 109 and trended down to 80's-90's without further treatment. Hospitalist service consulted and recommended increasing patient's carvedilol from 12.5mg am and 6.25mg pm to 12.5 mg twice daily. Today in ER initial heart rate: 113, other vitals stable EKG: Atrial fibrillation, HR 106 During ER course patient heart rate trended down to 80s without intervention and patient no longer symptomatic Admit telemetry for observation History Echo 02/14/2022: EF 60-65%, left atrium severely enlarged, mild aortic valve sclerosis, mild mitral regurgitation, mild tricuspid regurgitation TSH pending Continue carvedilol 12.5 mg twice daily As needed Lopressor Continue Eliquis Cardiology consult CBC, BMP in a.m. (2) CAD (coronary artery disease): Plan: S/P CABG x4 s/p in 2007. Continue aspirin, atorvastatin, carvedilol (3) Aortic insufficiency: Plan: Patient is to follow with Dr. Null on 04/06/22 for TAVR evaluation Appears euvolemic currently (4) CKD (chronic kidney disease), stage III: Plan: Cr: 1.4. Baseline~1.4 Monitor renal functions, avoid nephrotoxic agents when possible (5) Hypertension: Plan: Continue amlodipine, carvedilol (6) Hyperlipidemia: Plan: Continue atorvastatin (7) Hypothyroidism: Plan: TSH pending Continue levothyroxine (8) Benign prostatic hyperplasia with urinary obstruction: Plan: Chronic urinary retention S/p TURP Self straight caths 6 times daily Patient can continue to self cath as needed (9) Gout: Plan: Continue allopurinol DVT Prophylaxis On Eliquis Full Code as per discussion with pt Follows with Dr Chawla for routine care Pt was seen and care coordinated with Dr Garza. See addendum History of Present Illness Chief Complaint: Weakness Primary Care Provider: Fredis Chawla MD Patient is 82-year-old male with PMH atrial fibrillation anticoagulated on Eliquis, severe aortic insufficiency, HTN, dyslipidemia, CAD s/p CABG x4 in 2007, CKD III, history AAA, hypothyroidism, chronic urinary retention requiring self catheterization, EMILY presented to ER today with complaint of palpitations and weakness. Patient seen at [facility] ER yesterday 03/15/2022 for palpitations and found to be in atrial fibrillation initial HR 109 and trended down to 80's-90's without further treatment. Patient takes 12.5 mg carvedilol in the a.m. and 6.25mg in the PM. Hospitalist service consulted and recommended increasing patient's carvedilol to 12.5 mg twice daily. Patient states went home and was feeling fine however today around 13:00 started with generalized weakness, palpitations followed by nausea and 1 episode of vomiting. Reports generalized weakness and palpitations continued prompting ER visit. Patient states once settled in ER symptoms resolved. No further nausea or vomiting, weakness or palpitations. Patient denies any chest pain, dizziness, lightheadedness, syncope. Patient states drinks 2 cups coffee daily, has not increased intake. Denies alcohol intake. Denies fever/chills, diaphoresis, diarrhea, constipation, KUMAR, vision changes, neck pain, CP, SOB, orthopnea, cough, sore throat, choking, otalgia, rhinorrhea, abdominal pain, paresthesias, extremity edema, rashes, urinary symptoms. Allergies Allergy/AdvReac Type Severity Reaction Status Date / Time ragweed pollen Allergy Intermediate Sneezing Verified 02/21/22 10:59 animal dander Allergy Mild itchy Verified 02/21/22 10:59 house dust Allergy Mild Sneezing Verified 02/21/22 10:59 morphine Allergy Mild ITCHING, Verified 02/21/22 10:59 severe N/V pollen extracts Allergy Mild Sneezing Verified 02/21/22 10:59 Home Medications Medication Instructions Recorded Confirmed Type allopurinol 100 mg tablet 100 mg PO BID 07/30/18 03/16/22 History ascorbic acid (vitamin C) 1,000 mg 1,000 mg PO BID 07/30/18 03/16/22 History tablet (Vitamin C) aspirin 81 mg tablet,delayed 81 mg PO HS 07/30/18 03/16/22 History release (Heide Low Dose Aspirin) cholecalciferol (vitamin D3) 125 5,000 unit PO DAILY 07/30/18 03/16/22 History mcg (5,000 unit) tablet (Vitamin D3) fish, borage, flaxseed oils-omega 1 cap PO BID 07/30/18 03/16/22 History 3,6,9 cb #1 400 mg-400 mg-400 mg cap ([place] 3-6-9 Complex) multivitamin 2 tab PO BID 07/30/18 03/16/22 History omeprazole 40 mg capsule,delayed 40 mg PO QAM 07/30/18 03/16/22 History release vitamin E 268 mg (400 unit) capsule 400 unit PO 2XWK 07/30/18 03/16/22 History acetaminophen 500 mg tablet 1,000 mg PO Q6H PRN Pain 09/19/19 03/16/22 History glucosamine sulfate 500 mg tablet 1,000 mg PO DAILY 09/19/19 03/16/22 History (Glucosamine) nitroglycerin 0.4 mg sublingual 0.4 mg sublingual Q5M PRN Pain 10/09/19 03/16/22 History tablet coQ10 (ubiquinol) 100 mg capsule 100 mg PO DAILY 06/05/20 03/16/22 History apixaban 2.5 mg tablet (Eliquis) 2.5 mg PO BID 03/15/22 03/16/22 History atorvastatin 20 mg tablet 20 mg PO DAILY 03/15/22 03/16/22 History carvedilol 6.25 mg tablet 6.25 mg PO UD 03/15/22 03/16/22 History levothyroxine 175 mcg tablet 175 mcg PO DAILY 03/15/22 03/16/22 History amlodipine 2.5 mg tablet 2.5 mg PO DAILY 03/16/22 03/16/22 History Past Med/Surg History Medical History Abdominal aortic ectasia Per aortic duplex 10/10/19= There is evidence of a 3.5 cm x 3.5 cm abdominal aortic aneurysm. Color Doppler imaging demonstrates flow consistent with a patent lumen at and distal to the aortic aneurysm. Aortic insufficiency severe per cardio records Atrial fibrillation Patient was previously anticoagulated with Eliquis. This was since discontinued by cardiology 04/2019 d/t no a. fib noted on Holter monitor/no known recurrence. Patient on ASA and beta viv. BPH (benign prostatic hyperplasia) CAD (coronary artery disease) s/p CABG x4 (2007) Repeat cath in 2010 showed occlusion of the vein graft to obtuse marginal per cardio records Carotid artery disease Bilateral ICAs 50-69% per 08/2019 carotid duplex CKD (chronic kidney disease), stage III Esophageal cancer Around 2006 or 2008- s/p esophagectomy- no chemo or XRT GERD (gastroesophageal reflux disease) Well controlled and stable Gout Hearing deficit Hx of myocardial infarction 2007 Hyperlipidemia Hypertension Hypothyroidism Sleep apnea CPAP, was previously using it every night but for the past month has not been able to tolerate it. Vertebral osteomyelitis Surgical History History of appendectomy History of cardiac cath X 1 SINCE 2007-NO STENTS PLACED-F/U DR JOSE LUIS BENITEZ History of colonoscopy History of esophagogastroduodenoscopy (EGD) History of left cataract extraction 10/22/2019 History of right cataract surgery 10/08/2019. 2mg versed. Hx of esophagectomy d/t esophageal cancer (~2006) Hx of heart bypass surgery 4 vessels - 2007 Hx of transurethral resection of prostate x3 Family History Father Family history of diabetes mellitus Other No family history of adverse response to anesthesia Social History Smoking Status: Former smoker Cigarettes Per Day: SMOKED ~1PPD X 15 YEARS; Second Hand Exposure: No; Do You Dip or Chew Tobacco: No; Hx Alcohol Use: Yes Alcohol type: beer Hx Substance Use: No Preferred Language: Mauritanian Communication Ability: Effective Railroad Surveyor Required: No Beliefs That Will Affect Care: None Current Living Situation: Spouse Other Information That Helps Us Care for You: No Feels Safe at Home: Yes Safety Concerns: Feels Safe At This Time Assistive Devices: Denture - Lower, Glasses and Hearing Aid - Bilateral Review of Systems Review of Systems: All systems reviewed & are unremarkable except as noted in HPI & below Physical Exam Physical Exam: General: no distress, WDWN Head: normocephalic, atraumatic Eyes: conjunctiva non-injected, anicteric ENT: normal inspection external ears, nose, mucous membranes moist Neck: supple, trachea midline Lungs: clear, no respiratory distress, no wheezing/rhonchi/rales CV: Irregularly irregular, + murmur, no pretibial edema Abd: normal BS, soft, non-tender Ext: no cyanosis, no calf tenderness Neuro: A&O x 3, no focal deficits noted, normal affect Skin: warm, dry Results & Data Results & Data ([facility]) Vital Signs (Past 12 Hours) Vital Signs Temp Pulse Pulse Resp BP BP Pulse Ox 03/16/22 16:14 86 18 135/77 93 03/16/22 14:42 36.6 C 113 H 18 127/70 95 O2 Del Method 03/16/22 16:14 Room Air 03/16/22 14:42 Room Air Laboratory Results Short CBC 03/16/22 Range/Units 15:10 WBC 6.44 (4.8-10.8) K/ul Hgb 16.3 (14.0-18.0) g/dl Hct 47.7 (40.1-51.0) % Plt Count 172 (130-400) K/uL BMP 03/16/22 15:10 Sodium 137 Potassium 4.4 Chloride 106 Carbon Dioxide 24 BUN 30 H Creatinine 1.42 H Glucose 90 Calcium 9.7 Liver Function 03/16/22 Range/Units 15:10 Total Bilirubin 0.8 (0.2-1.0) mg/dl AST 19 (13-39) U/L ALT 12 (7-52) U/L Alkaline Phosphatase 50 (34-104) U/L Albumin 3.9 (3.4-5.0) gm/dl Diagnostic Findings Chest X-Ray 03/16/22 14:45 XR chest 2V PA/lateral HISTORY: 82 years-old Male Chest Pain acute chest pain COMPARISON: Chest radiograph 03/15/2022 TECHNIQUE: PA and lateral views of the chest FINDINGS: Cardiac silhouette is enlarged. Prior median sternotomy. No pneumothorax, pleural effusion, airspace consolidation or overt pulmonary edema. Mild hyperinflation with diaphragmatic flattening. Degenerative changes of the shoulders and spine. Hiatal hernia. Descending thoracic aortic tortuosity. IMPRESSION: Cardiomegaly without acute process. ACT 112: Negative or not required by law. The above report was generated using voice recognition software. It may contain grammatical, syntax or spelling errors. Electronically signed by: Kevin Barksdale M.D. 03/16/2022 4:09 PM ECG Rate (beats per minute): 106 Rhythm: atrial fibrillation Supervising Physician Co-Signing Physician Notes I have seen and examined the patient and have discussed the case with the provider above. I agree with the assessment and plan as stated. 82 yo M with PAF on eliquis and coreg who presents with worsening palpations and weakness that began around 1pm today. This was similar to his episode yesterday prompting a visit to the ER. He is not ill, and workup to date is unrevealing for a clear cause. Suspect underlying valvular disease, which may have worsened. He denies chest pain, SOB or other symptoms at this time and his heart rate is in the 70s . My exam is consistent with that listed above. LAbwork and imaging reviewed. EKG reviewed with afib with rvr, lateral depressions and TWI. Again, he denies chest pain. Cont plan to trend troponin overnight and repeat EKG in am. Cardiology consult. DO Greg
[2022-03-16] MEDS ORDERED: ONDANSETRON INJ 2 MG/ML 2 ML VIAL IV PRN (19:04)
[2022-03-16] MEDS ORDERED: ACETAMINOPHEN 325 MG TAB PO PRN (19:04)
[2022-03-16] MEDS ORDERED: POLYETHYLENE (MIRALAX) 17 GM PACK PO PRN (19:04)
[2022-03-16] MEDS ORDERED: METOPROLOL TARTRATE 1 MG/ML VIAL IV PRN (19:04)
--- NOTE | 2022-03-16 19:47 | Electrocardiogram Report ---
Test Reason : Blood Pressure : / mmHG Vent. Rate : 106 BPM Atrial Rate : 092 BPM P-R Int : 000 ms QRS Dur : 108 ms QT Int : 298 ms P-R-T Axes : 000 004 166 degrees QTc Int : 395 ms Atrial fibrillation with rapid ventricular response Moderate voltage criteria for LVH, may be normal variant Abnormal ECG Confirmed by Bala Pierre ([id number]) on 03/16/2022 7:47:23 PM Referred By: REFERRED SELF Confirmed By:Kamlesh Pierre
[2022-03-16] MEDS: ASPIRIN 81 MG ECTAB PO SCH (20:35)
[2022-03-16] MEDS: allopurinoL 100 MG TAB PO SCH (20:35)
[2022-03-16] MEDS: APIXABAN 2.5 MG TAB PO SCH (20:35)
[2022-03-16] MEDS: carvediloL 12.5 MG TAB PO SCH (22:50)
[2022-03-17] MEDS: LEVOTHYROXINE SODIUM 175 MCG TABLET PO SCH (05:36)
[2022-03-17 06:37] LABS: Hematocrit (blood only) 43.3 % (40.1-51.0); Mean Corpuscular Hemoglobin 34.2 pg (25.0-34.0); Mean Corpuscular Hgb Conc 34.6 g/dL (32.0-36.0); Mean Corpuscular Volume 98.9 fL (80.0-100.0); Mean Platelet Volume 12.4 fL (9.4-12.4); Platelet Count 148 K/uL (130-400); RDW Coefficient of Variation 13.1 % (11.5-14.5); RDW Standard Deviation 47.7 fL (36.4-46.3); Red Blood Count 4.38 M/uL (4.63-6.08); White Blood Count 6.02 K/ul (4.8-10.8)
[2022-03-17 07:04] LABS: Creatinine Clr Calc Pharmacy 47.1 ml/min; Est GFR (African American) 56.7 ml/min; Est GFR (Non-African American) 48.9 ml/min; Potassium 4.3 mmol/L (3.5-5.1)
--- NOTE | 2022-03-17 08:50 | Cardiology Consultation ---
Date of Consultation March 17, 2022 Assessment & Plan (1) Atrial fibrillation with RVR: (2) Aortic insufficiency: (3) CAD (coronary artery disease): Plan Patient is a complex 82-year-old male with underlying coronary artery disease, valvular heart disease with severe aortic insufficiency and past paroxysmal now persistent atrial fibrillation of at least 4 months duration. Heart rates generally have been controlled but recently has had change in heart rate with racing heart rhythm and elevated ventricular sponsor to chronic atrial fibrillation. No signs of acute deterioration hemodynamically. No evidence of congestive heart failure. No evidence of myocardial ischemia by EKG or enzyme but EKG is chronically abnormal. 1. Atrial fibrillation with variable heart rate response, recent increase in heart rate despite medical therapy. No acute cardiac findings on exam. We will assess for secondary causes for increased heart rate demand Echocardiogram will be reviewed to reassess degree of aortic insufficiency and LV function Past history of recurrent infections and past vertebral osteomyelitis blood cultures and urine culture sent but no elevation in white cell count noted Maintain telemetry additional 24 hours We will titrate carvedilol slightly higher 2. Severe aortic insufficiency: Repeat echocardiogram reassess LV systolic function 3. Chronic stable ischemic heart disease without overt ischemia by enzyme echocardiogram to be reviewed History of Present Illness Reason for Consultation: Atrial fibrillation Requesting Physician: Dr. Jolley Attending Physician: Yovany Jolley MD History of Present Illness Patient is an 82-year-old male with ongoing cardiac issues which include 1.Atherosclerotic coronary disease status post coronary bypass grafting x4 in September of 2007, receiving a GIFFORD graft to the LAD, a saphenous vein graft to the right coronary artery, a saphenous vein graft to the ramus intermedius, and a saphenous vein graft to the obtuse marginal. 2.Prior positive stress testing in 2010 with subsequent repeat cardiac catheterization demonstrating occlusion of the vein graft to the obtuse marginal. 3.Severe aortic insufficiency . 4.Mild to moderate aortic root enlargement. 5.Hypertension. 6.Abdominal aortic ectasia. 7.Atrial arrhythmias with chart documentation of paroxysmal atrial fibrillation . 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 FRANKLIN at that time negative for endocarditis with chronic aortic insufficiency once again documented. 9.Transient atrial fibrillation during acute hospitalization, 2018 initially treated with amiodarone with subsequent conversion to sinus rhythm 10. 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 Recent symptoms of increased heart rate and nausea resulting in ER visit 2 days ago with transiently elevated atrial fibrillation observed. Beta-viv increased but still not feeling well and patient concern regarding nausea and elevated heart rate yesterday Luna presented for further evaluation. No signs or symptoms of congestive heart failure no chest pains. No fevers chills or unexplained infections. No bleeding difficulties. Appetite is generally good nausea somewhat new. Initial evaluation only notable for atrial fibrillation with variable heart rate. No signs of fluid retention or heart failure Allergies Allergy/AdvReac Type Severity Reaction Status Date / Time ragweed pollen Allergy Intermediate Sneezing Verified 02/21/22 10:59 animal dander Allergy Mild itchy Verified 02/21/22 10:59 house dust Allergy Mild Sneezing Verified 02/21/22 10:59 morphine Allergy Mild ITCHING, Verified 02/21/22 10:59 severe N/V pollen extracts Allergy Mild Sneezing Verified 02/21/22 10:59 Home Medications Medication Instructions Recorded Confirmed Type allopurinol 100 mg tablet 100 mg PO BID 07/30/18 03/16/22 History ascorbic acid (vitamin C) 1,000 mg 1,000 mg PO BID 07/30/18 03/16/22 History tablet (Vitamin C) aspirin 81 mg tablet,delayed 81 mg PO HS 07/30/18 03/16/22 History release (Heide Low Dose Aspirin) cholecalciferol (vitamin D3) 125 5,000 unit PO DAILY 07/30/18 03/16/22 History mcg (5,000 unit) tablet (Vitamin D3) fish, borage, flaxseed oils-omega 1 cap PO BID 07/30/18 03/16/22 History 3,6,9 cb #1 400 mg-400 mg-400 mg cap (Graham 3-6-9 Complex) multivitamin 2 tab PO BID 07/30/18 03/16/22 History omeprazole 40 mg capsule,delayed 40 mg PO QAM 07/30/18 03/16/22 History release vitamin E 268 mg (400 unit) capsule 400 unit PO 2XWK 07/30/18 03/16/22 History acetaminophen 500 mg tablet 1,000 mg PO Q6H PRN Pain 09/19/19 03/16/22 History glucosamine sulfate 500 mg tablet 1,000 mg PO DAILY 09/19/19 03/16/22 History (Glucosamine) nitroglycerin 0.4 mg sublingual 0.4 mg sublingual Q5M PRN Pain 10/09/19 03/16/22 History tablet coQ10 (ubiquinol) 100 mg capsule 100 mg PO DAILY 06/05/20 03/16/22 History apixaban 2.5 mg tablet (Eliquis) 2.5 mg PO BID 03/15/22 03/16/22 History atorvastatin 20 mg tablet 20 mg PO DAILY 03/15/22 03/16/22 History carvedilol 6.25 mg tablet 6.25 mg PO UD 03/15/22 03/16/22 History levothyroxine 175 mcg tablet 175 mcg PO DAILY 03/15/22 03/16/22 History amlodipine 2.5 mg tablet 2.5 mg PO DAILY 03/16/22 03/16/22 History Patient History Medical History Abdominal aortic ectasia Per aortic duplex 10/10/19= There is evidence of a 3.5 cm x 3.5 cm abdominal aortic aneurysm. Color Doppler imaging demonstrates flow consistent with a patent lumen at and distal to the aortic aneurysm. Aortic insufficiency severe per cardio records Atrial fibrillation Patient was previously anticoagulated with Eliquis. This was since discontinued by cardiology 04/2019 d/t no a. fib noted on Holter monitor/no known recurrence. Patient on ASA and beta viv. BPH (benign prostatic hyperplasia) CAD (coronary artery disease) s/p CABG x4 (2007) Repeat cath in 2010 showed occlusion of the vein graft to obtuse marginal per cardio records Carotid artery disease Bilateral ICAs 50-69% per 08/2019 carotid duplex CKD (chronic kidney disease), stage III Esophageal cancer Around 2006 or 2008- s/p esophagectomy- no chemo or XRT GERD (gastroesophageal reflux disease) Well controlled and stable Gout Hearing deficit Hx of myocardial infarction 2007 Hyperlipidemia Hypertension Hypothyroidism Sleep apnea CPAP, was previously using it every night but for the past month has not been able to tolerate it. Vertebral osteomyelitis Surgical History History of appendectomy History of cardiac cath X 1 SINCE 2007-NO STENTS PLACED-F/U DR JOSE LUIS BENITEZ History of colonoscopy History of esophagogastroduodenoscopy (EGD) History of left cataract extraction 10/22/2019 History of right cataract surgery 10/08/2019. 2mg versed. Hx of esophagectomy d/t esophageal cancer (~2006) Hx of heart bypass surgery 4 vessels - 2008 Hx of transurethral resection of prostate x3 Family History Father Family history of diabetes mellitus Other No family history of adverse response to anesthesia Social History Smoking Status: Former smoker Cigarettes Per Day: SMOKED ~1PPD X 15 YEARS; Second Hand Exposure: No; Do You Dip or Chew Tobacco: No; Hx Alcohol Use: Yes Alcohol type: beer Hx Substance Use: No Preferred Language: Romansh Communication Ability: Effective Benzol Operator Required: No Beliefs That Will Affect Care: None Current Living Situation: Spouse Other Information That Helps Us Care for You: No Feels Safe at Home: Yes Safety Concerns: Feels Safe At This Time Assistive Devices: Denture - Lower, Glasses and Hearing Aid - Bilateral Review of Systems Review of Systems: All systems reviewed & are unremarkable except as noted in HPI & below Physical Exam Constitutional: WD/WN, vitals as above Eyes: PERRL, conjunctivae normal, anicteric sclerae ENMT: external ear and nose normal, oropharynx normal Neck: trachea midline, no thyromegaly Respiratory: normal respiratory effort, lungs clear to auscultation Cardiovascular: Rate/Rhythm: + irregularly irregular Heart Sounds: + murmur (Grade 2 systolic grade 3 diastolic) Vessels: no JVD Extremities: no edema Gastrointestinal (Abdomen): normal bowel sounds, soft, nontender, no hepatosplenomegaly Musculoskeletal: no cyanosis or clubbing, extremities motor strength 5/5 Results & Data ([facility]) Vital Signs (Past 12 Hours) Vital Signs Temp Pulse Resp BP Pulse Ox O2 Del Method 03/17/22 03:04 36.7 C 74 16 129/67 95 Room Air 03/16/22 22:58 36.7 C 76 16 138/63 96 Room Air Laboratory Results Laboratory Results - last 24 hr 03/16/22 03/16/22 03/16/22 15:10 15:10 15:10 WBC 6.44 RBC 4.73 Hgb 16.3 Hct 47.7 MCV 100.8 H MCH 34.5 H MCHC 34.2 RDW Std Deviation 48.7 H RDW Coeff of Daniela 13.2 Plt Count 172 MPV 12.4 Immature Gran % (Auto) 0.5 Neut % (Auto) 58.4 Lymph % (Auto) 25.5 [place] % (Auto) 10.1 Eos % (Auto) 3.6 Baso % (Auto) 1.9 Neut # (Auto) 3.77 Lymph # (Auto) 1.64 [place] # (Auto) 0.65 Eos # (Auto) 0.23 Baso # (Auto) 0.12 Immature Gran # (Auto) 0.03 H PT 11.4 INR 1.1 APTT 29.6 PTT Ratio 1.1 Sodium 137 Potassium 4.4 Chloride 106 Carbon Dioxide 24 Anion Gap 7 BUN 30 H Creatinine 1.42 H Est Cr Clr Drug Dosing 44.8 Est GFR ( Amer) 53.3 Est GFR (Non-Af Amer) 46.0 BUN/Creatinine Ratio 21.1 H Glucose 90 Calcium 9.7 Total Bilirubin 0.8 AST 19 ALT 12 Alkaline Phosphatase 50 Troponin I High Sens 14.6 Total Protein 7.0 Albumin 3.9 Globulin 3.1 Albumin/Globulin Ratio 1.3 TSH SARS-CoV-2, RNA, NAAT 03/16/22 03/16/22 03/17/22 15:20 17:40 06:09 WBC 6.02 RBC 4.38 L Hgb 15.0 Hct 43.3 MCV 98.9 MCH 34.2 H MCHC 34.6 RDW Std Deviation 47.7 H RDW Coeff of Daniela 13.1 Plt Count 148 MPV 12.4 Immature Gran % (Auto) Neut % (Auto) Lymph % (Auto) [place] % (Auto) Eos % (Auto) Baso % (Auto) Neut # (Auto) Lymph # (Auto) [place] # (Auto) Eos # (Auto) Baso # (Auto) Immature Gran # (Auto) PT INR APTT PTT Ratio Sodium Potassium Chloride Carbon Dioxide Anion Gap BUN Creatinine Est Cr Clr Drug Dosing Est GFR ( Amer) Est GFR (Non-Af Amer) BUN/Creatinine Ratio Glucose Calcium Total Bilirubin AST ALT Alkaline Phosphatase Troponin I High Sens Total Protein Albumin Globulin Albumin/Globulin Ratio TSH 0.380 SARS-CoV-2, RNA, NAAT NEGATIVE 03/17/22 06:09 WBC RBC Hgb Hct MCV MCH MCHC RDW Std Deviation RDW Coeff of Daniela Plt Count MPV Immature Gran % (Auto) Neut % (Auto) Lymph % (Auto) [place] % (Auto) Eos % (Auto) Baso % (Auto) Neut # (Auto) Lymph # (Auto) [place] # (Auto) Eos # (Auto) Baso # (Auto) Immature Gran # (Auto) PT INR APTT PTT Ratio Sodium 139 Potassium 4.3 Chloride 107 Carbon Dioxide 26 Anion Gap 6 BUN 31 H Creatinine 1.35 Est Cr Clr Drug Dosing 47.1 Est GFR ( Amer) 56.7 Est GFR (Non-Af Amer) 48.9 BUN/Creatinine Ratio 23.0 H Glucose 105 H Calcium 9.0 Total Bilirubin AST ALT Alkaline Phosphatase Troponin I High Sens Total Protein Albumin Globulin Albumin/Globulin Ratio TSH SARS-CoV-2, RNA, NAAT
[2022-03-17] MEDS: amLODIPine BESYLATE 5 MG TAB PO SCH (09:13)
[2022-03-17] MEDS: carvediloL 12.5 MG TAB PO SCH ×2 (09:13→20:13)
[2022-03-17] MEDS: allopurinoL 100 MG TAB PO SCH ×2 (09:13→20:13)
[2022-03-17] MEDS: PANTOprazole 40 MG TAB PO SCH (09:13)
[2022-03-17] MEDS: APIXABAN 2.5 MG TAB PO SCH ×2 (09:13→20:13)
[2022-03-17] MEDS: ATORVASTATIN 20 MG TAB PO SCH (09:15)
[2022-03-17] MEDS: CHOLECALCIFEROL 5,000 UNITS 125 MCG TAB PO SCH (09:15)
[2022-03-17] MEDS ORDERED: carvediloL 6.25 MG TAB PO ONE (10:07)
--- NOTE | 2022-03-17 14:11 | Hospitalist Progress Note ---
Date of Service March 17, 2022 Assessment & Plan (1) Atrial fibrillation with RVR: Plan: Patient is 82-year-old male with PMH atrial fibrillation anticoagulated on Eliquis, severe aortic insufficiency, HTN, dyslipidemia, CAD s/p CABG x4 in 2007, CKD III, history AAA, hypothyroidism, chronic urinary retention requiring self catheterization, EMILY presented to ER today with complaint of palpitations and weakness. A. fib RVR Severe aortic insufficiency ECHO pending TSH: 0.38 Continue carvedilol as per cardiology Appreciate cardiac input On Eliquis for anticoagulation Monitor and replace electrolytes as needed (2) CAD (coronary artery disease): Plan: S/P CABG x4 s/p in 2007. Continue aspirin, atorvastatin, carvedilol (3) Aortic insufficiency: Plan: Patient is to follow with Dr. 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: Plan: Chronic urinary retention S/p TURP Self straight caths 6 times daily continue to self cath as needed (9) Gout: Plan: Continue allopurinol DVT Px On Eliquis Code Status Full Code Admission and Anticipated Discharge Date Admission Date: March 16, 2022 Subjective Patient is seen and examined at bedside Palpitations, weakness, nausea resolved Feels better today Offers no other complaints Denies any chest pain, dizziness, dyspnea, nausea, abdominal pain Review of Systems Review of Systems: All systems reviewed & are unremarkable except as noted in Subjective Physical Exam Physical Exam: Physical Exam: Vitals signs as noted above General Appearance:Moderately built and nourished, no apparent distress Head: normocephalic, Atraumatic Eyes: normal inspection, EOMI Neck: supple, Trachea midline Respiratory/Chest: Normal breath sounds, CTA, No accessory muscle use Cardiovascular: Irregularly irregular, + murmur Abdomen/GI:Soft, Non tender, Bowel sounds present Extremities/Musculoskeletal:normal inspection, no edema Neurologic/Psych:AAOX3, grossly no focal neurological deficits Skin: normal color, warm Results & Data Results & Data ([facility]) Vital Signs (Past 12 Hours) Vital Signs Temp Pulse Resp BP Pulse Ox O2 Del Method 03/17/22 03:04 36.7 C 74 16 129/67 95 Room Air Laboratory Results Short CBC 03/16/22 03/17/22 Range/Units 15:10 06:09 WBC 6.44 6.02 (4.8-10.8) K/ul Hgb 16.3 15.0 (14.0-18.0) g/dl Hct 47.7 43.3 (40.1-51.0) % Plt Count 172 148 (130-400) K/uL BMP 03/16/22 03/17/22 15:10 06:09 Sodium 137 139 Potassium 4.4 4.3 Chloride 106 107 Carbon Dioxide 24 26 BUN 30 H 31 H Creatinine 1.42 H 1.35 Glucose 90 105 H Calcium 9.7 9.0 Liver Function 03/16/22 Range/Units 15:10 Total Bilirubin 0.8 (0.2-1.0) mg/dl AST 19 (13-39) U/L ALT 12 (7-52) U/L Alkaline Phosphatase 50 (34-104) U/L Albumin 3.9 (3.4-5.0) gm/dl
[2022-03-17 17:41] LABS: Appearance Urine Cloudy (Clear); Bacteria Urine Automated 4+ (Negative); Bilirubin Urine Negative (Negative); Blood Urine 1+ (Negative); Color Urine Yellow; Epithelial Cell Urine Auto 0-5 /lpf (0-5); Glucose Urine UA Negative (Negative); Ketones Urine Negative (Negative); Leukocyte Esterase Urine 2+ (Negative); Nitrite Urine Negative (Negative); Protein Urine 2+ (Negative); RBC Urine Automated 0-4 /hpf (0-4); Specific Gravity Urine 1.013 (1.000-1.030); Urobilinogen Urine Negative (Negative); WBC Urine Automated >30 /hpf (0-5); pH Urine 5.5 (4.5-7.5)
[2022-03-17] MEDS: ASPIRIN 81 MG ECTAB PO SCH (20:12)
--- NOTE | 2022-03-17 20:54 | Electrocardiogram Report ---
Test Reason : Blood Pressure : / mmHG Vent. Rate : 073 BPM Atrial Rate : 077 BPM P-R Int : 000 ms QRS Dur : 108 ms QT Int : 400 ms P-R-T Axes : 000 006 167 degrees QTc Int : 440 ms Atrial fibrillation Moderate voltage criteria for LVH, may be normal variant Abnormal ECG When compared with ECG of 16-MAR-2022 15:06, Minimal criteria for Septal infarct are no longer Present Confirmed by Bala Pierre ([id number]) on 03/17/2022 8:53:53 PM Referred By: REFERRED SELF Confirmed By:Kamlesh Pierre
[2022-03-18] MEDS: LEVOTHYROXINE SODIUM 175 MCG TABLET PO SCH (05:30)
[2022-03-18 07:39] LABS: BUN Creatinine Ratio 20.5 (10-20); Calcium 9.4 mg/dl (8.5-10.1); Creatinine Clr Calc Pharmacy 42.1 ml/min; Est GFR (African American) 49.5 ml/min; Est GFR (Non-African American) 42.7 ml/min; Magnesium 1.7 mg/dl (1.7-2.4); Potassium 4.1 mmol/L (3.5-5.1)
[2022-03-18] MEDS: allopurinoL 100 MG TAB PO SCH ×2 (09:07→20:58)
[2022-03-18] MEDS: amLODIPine BESYLATE 5 MG TAB PO SCH (09:07)
[2022-03-18] MEDS: carvediloL 12.5 MG TAB PO SCH (09:07)
[2022-03-18] MEDS: ATORVASTATIN 20 MG TAB PO SCH (09:07)
[2022-03-18] MEDS: APIXABAN 2.5 MG TAB PO SCH ×2 (09:07→20:58)
[2022-03-18] MEDS: CHOLECALCIFEROL 5,000 UNITS 125 MCG TAB PO SCH (09:08)
[2022-03-18] MEDS: PANTOprazole 40 MG TAB PO SCH (09:08)
[2022-03-18] MEDS ORDERED: cefTRIAXone SODIUM 1,000 MG in DEXTROSE 5% AD-VAN 50 ML IV SCH (09:45)
[2022-03-18] MEDS: cefTRIAXone SODIUM 2,000 MG in DEXTROSE 5% 50 ML IV SCH (10:49)
[2022-03-18] MEDS ORDERED: carvediloL 6.25 MG TAB PO ONE (10:52)
--- NOTE | 2022-03-18 10:52 | Cardiology Progress Note ---
Date of Service March 18, 2022 Assessment & Plan (1) Atrial fibrillation with RVR: (2) Aortic insufficiency: (3) CAD (coronary artery disease): Plan Patient is a complex 82-year-old male with underlying coronary artery disease, valvular heart disease with severe aortic insufficiency and past paroxysmal now persistent atrial fibrillation of at least 4 months duration. Heart rates generally have been controlled but recently has had change in heart rate with racing heart rhythm and elevated ventricular sponsor to chronic atrial fibrillation. No signs of acute deterioration hemodynamically. No evidence of congestive heart failure. No evidence of myocardial ischemia by EKG or enzyme but EKG is chronically abnormal. 1. Atrial fibrillation with variable heart rate response, recent increase in heart rate despite medical therapy. Will increase carvedilol to 18.75 mg p.o. twice daily 2. Moderate to severe aortic insufficiency: No change on echocardiogram. Discussed in detail with patient options of management. Findings not surgical severity at this point in time but will meet with valve clinic as an outpatient. Surgical options are limited by hostile chest. Prior surgical bypass as well as prior esophagectomy for esophageal carcinoma 2006 3. Chronic stable ischemic heart disease without overt ischemia by enzyme echocardiogram to be reviewed 4. Chronic urinary retention past colonization as well as systemic infection. Cultures pending Admission and Anticipated Discharge Date Admission Date: March 17, 2022 Subjective Patient seen and examined, chart, medications, telemetry reviewed Patient anxious and nauseated this morning but without acute hemodynamic concerns. Heart rates occasionally elevated when patient aware but no profound tachycardia or bradycardia Physical Exam Constitutional: WD/WN, vitals as above Eyes: PERRL, conjunctivae normal, anicteric sclerae ENMT: external ear and nose normal, oropharynx normal Neck: trachea midline, no thyromegaly Respiratory: normal respiratory effort, lungs clear to auscultation Cardiovascular: Rate/Rhythm: + irregularly irregular Heart Sounds: + murmur (Grade 2 systolic grade 3 diastolic) Vessels: no JVD Extremities: no edema Gastrointestinal (Abdomen): normal bowel sounds, soft, nontender, no hepatosplenomegaly Musculoskeletal: no cyanosis or clubbing, extremities motor strength 5/5 Results & Data ([facility]) Vital Signs (Past 12 Hours) Vital Signs Temp Pulse Pulse Resp BP Pulse Ox O2 Del Method 03/18/22 07:49 68 03/18/22 07:47 36.5 C 78 20 129/57 L 96 Room Air 03/18/22 02:48 36.5 C 75 18 148/67 H 95 Room Air 03/17/22 23:47 75 Laboratory Results Laboratory Results - last 24 hr 03/17/22 03/18/22 17:19 06:54 Sodium 137 Potassium 4.1 Chloride 104 Carbon Dioxide 29 Anion Gap 4 BUN 31 H Creatinine 1.51 H Est Cr Clr Drug Dosing 42.1 Est GFR ( Amer) 49.5 Est GFR (Non-Af Amer) 42.7 BUN/Creatinine Ratio 20.5 H Glucose 112 H Calcium 9.4 Magnesium 1.7 Urine Color Yellow Urine Appearance Cloudy A Urine pH 5.5 Ur Specific [place] 1.013 Urine Protein 2+ H Urine Glucose (UA) Negative Urine Ketones Negative Urine Blood 1+ H Urine Nitrite Negative Urine Bilirubin Negative Urine Urobilinogen Negative Ur Leukocyte Esterase 2+ H Urine WBC (Auto) >30 H Urine RBC (Auto) 0-4 U Hyaline Cast (Auto) 1-5 U Epithel Cells (Auto) 0-5 Urine Bacteria (Auto) 4+ H
--- NOTE | 2022-03-18 17:44 | Hospitalist Progress Note ---
Date of Service March 18, 2022 Assessment & Plan (1) Atrial fibrillation with RVR: Plan: Patient is 82-year-old male with PMH atrial fibrillation anticoagulated on Eliquis, severe aortic insufficiency, HTN, dyslipidemia, CAD s/p CABG x4 in 2007, CKD III, history AAA, hypothyroidism, chronic urinary retention requiring self catheterization, EMILY presented to ER today with complaint of palpitations and weakness. A. 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 Continue aspirin, atorvastatin, carvedilol (3) Aortic insufficiency: Plan: --ECHO: EF 50 to 55%. Moderate concentric LVH. Left atrium is severely dilated. Moderate to severe aortic regurgitation. Eccentric aortic regurgitation jet directed towards the anterior mitral valve leaflet. Mild mitral regurgitation. Mild tricuspid regurgitation. No findings suggestive of pulmonary hypertension. --Patient is to follow with Dr. 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: Plan: Chronic urinary retention S/p TURP Self straight caths 6 times daily continue to self cath as needed (9) Gout: Plan: Continue allopurinol DVT Px On Eliquis Code Status Full Code Admission and Anticipated Discharge Date Admission Date: March 17, 2022 Subjective Patient is seen and examined at bedside Reports nausea, vomiting, palpitations today Discussed with patient's family at bedside No other complaints Review of Systems Review of Systems: All systems reviewed & are unremarkable except as noted in Subjective Physical Exam Physical Exam: Physical Exam: Vitals signs as noted above General Appearance:Moderately built and nourished, no apparent distress Head: normocephalic, Atraumatic Eyes: normal inspection, EOMI Neck: supple, Trachea midline Respiratory/Chest: Normal breath sounds, CTA, No accessory muscle use Cardiovascular: Irregularly irregular, + murmur Abdomen/GI:Soft, Non tender, Bowel sounds present Extremities/Musculoskeletal:normal inspection, no edema Neurologic/Psych:AAOX3, grossly no focal neurological deficits Skin: normal color, warm Results & Data Results & Data ([facility]) Vital Signs (Past 12 Hours) Vital Signs Temp Pulse Pulse Resp BP Pulse Ox O2 Del Method 03/18/22 15:37 75 03/18/22 14:59 36.3 C L 78 20 132/57 L 92 Room Air 03/18/22 11:33 36.6 C 74 19 127/61 94 Room Air 03/18/22 07:49 68 03/18/22 07:47 36.5 C 78 20 129/57 L 96 Room Air Laboratory Results [facility] 03/18/22 06:54 Sodium 137 Potassium 4.1 Chloride 104 Carbon Dioxide 29 BUN 31 H Creatinine 1.51 H Glucose 112 H Calcium 9.4 Urine 03/17/22 Range/Units 17:19 Urine Color Yellow Urine Appearance Cloudy A (Clear) Urine pH 5.5 (4.5-7.5) Ur Specific [place] 1.013 (1.000-1.030) Urine Protein 2+ H (Negative) Urine Glucose (UA) Negative (Negative)
[2022-03-18] MEDS: carvediloL 6.25 MG TAB PO SCH (20:57)
[2022-03-18] MEDS: ASPIRIN 81 MG ECTAB PO SCH (20:58)
[2022-03-19] MEDS: LEVOTHYROXINE SODIUM 175 MCG TABLET PO SCH (05:38)
[2022-03-19 06:29] LABS: Hematocrit (blood only) 43.9 % (40.1-51.0); Hemoglobin 15.3 g/dl (14.0-18.0); Mean Corpuscular Hemoglobin 34.2 pg (25.0-34.0); Mean Corpuscular Hgb Conc 34.9 g/dL (32.0-36.0); Mean Platelet Volume 12.3 fL (9.4-12.4); Platelet Count 153 K/uL (130-400); RDW Coefficient of Variation 13.1 % (11.5-14.5); RDW Standard Deviation 46.7 fL (36.4-46.3); Red Blood Count 4.48 M/uL (4.63-6.08); White Blood Count 6.53 K/ul (4.8-10.8)
[2022-03-19 07:02] LABS: Calcium 9.2 mg/dl (8.5-10.1); Creatinine Clr Calc Pharmacy 44.2 ml/min; Est GFR (African American) 52.4 ml/min; Est GFR (Non-African American) 45.2 ml/min; Potassium 3.9 mmol/L (3.5-5.1)
[2022-03-19] MEDS: APIXABAN 2.5 MG TAB PO SCH ×2 (08:38→20:47)
[2022-03-19] MEDS: carvediloL 6.25 MG TAB PO SCH ×2 (08:38→20:47)
[2022-03-19] MEDS: allopurinoL 100 MG TAB PO SCH ×2 (08:38→20:48)
[2022-03-19] MEDS: PANTOprazole 40 MG TAB PO SCH (08:39)
[2022-03-19] MEDS: amLODIPine BESYLATE 5 MG TAB PO SCH (08:39)
[2022-03-19] MEDS: CHOLECALCIFEROL 5,000 UNITS 125 MCG TAB PO SCH (08:39)
[2022-03-19] MEDS: ATORVASTATIN 20 MG TAB PO SCH (08:39)
[2022-03-19] MEDS: cefTRIAXone SODIUM 2,000 MG in DEXTROSE 5% 50 ML IV SCH (10:20)
--- NOTE | 2022-03-19 12:34 | Cardiology Progress Note ---
Date of Service March 19, 2022 Assessment & Plan (1) Atrial fibrillation with RVR: (2) Aortic insufficiency: (3) CAD (coronary artery disease): Plan Patient is a complex 82-year-old male with underlying coronary artery disease, valvular heart disease with severe aortic insufficiency and past paroxysmal now persistent atrial fibrillation of at least 4 months duration. Heart rates generally have been controlled but recently has had change in heart rate with racing heart rhythm and elevated ventricular sponsor to chronic atrial fibrillation. No signs of acute deterioration hemodynamically. No evidence of congestive heart failure. No evidence of myocardial ischemia by EKG or enzyme but EKG is chronically abnormal. 1. Atrial fibrillation with variable heart rate response, recent increase in heart rate despite medical therapy. We will plan on discharging on carvedilol 25 mg a.m. 12.5 mg p.m. 2. Moderate to severe aortic insufficiency: No change on echocardiogram. Discussed in detail with patient options of management. Findings not surgical severity at this point in time but will meet with valve clinic as an outpatient. Surgical options are limited by hostile chest. Prior surgical bypass as well as prior esophagectomy for esophageal carcinoma 2006 3. Chronic stable ischemic heart disease without overt ischemia by enzyme echocardiogram to be reviewed 4. Chronic urinary retention past colonization as well as systemic infection. Cultures pending Arrangements being made for cardiology clinic follow-up prior to valve clinic appointment 04/06 Admission and Anticipated Discharge Date Admission Date: March 17, 2022 Subjective Patient feels substantially improved today. No tachypalpitations dizziness or lightheadedness. Heart rate better controlled possibly due to medical increases versus treatment of underlying urinary issues No dizziness or lightheadedness Ambulatory in the room without difficulty No fevers or cough Review of Systems Review of Systems: All systems reviewed & are unremarkable except as noted in Subjective Physical Exam Constitutional: WD/WN, vitals as above Eyes: PERRL, conjunctivae normal, anicteric sclerae ENMT: external ear and nose normal, oropharynx normal Neck: trachea midline, no thyromegaly Respiratory: normal respiratory effort, lungs clear to auscultation Cardiovascular: Rate/Rhythm: + irregularly irregular Heart Sounds: + murmur (Grade 2 systolic grade 3 diastolic) Vessels: no JVD Extremities: no edema Gastrointestinal (Abdomen): normal bowel sounds, soft, nontender, no hepatosplenomegaly Musculoskeletal: no cyanosis or clubbing, extremities motor strength 5/5 Results & Data ([facility]) Vital Signs (Past 12 Hours) Vital Signs Temp Pulse Pulse Resp BP BP Pulse Ox 03/19/22 12:01 36.5 C 70 18 117/61 93 03/19/22 08:30 03/19/22 08:22 36.3 C L 68 18 125/55 L 94 03/19/22 07:02 79 03/19/22 04:15 36.5 C 71 16 110/56 L 95 O2 Del Method 03/19/22 12:01 Room Air 03/19/22 08:30 Room Air 03/19/22 08:22 Room Air 03/19/22 07:02 03/19/22 04:15 Room Air
--- NOTE | 2022-03-19 16:30 | Hospitalist Progress Note ---
Date of Service March 19, 2022 Assessment & Plan (1) Atrial fibrillation with RVR: Plan: Patient is 82-year-old male with PMH atrial fibrillation anticoagulated on Eliquis, severe aortic insufficiency, HTN, dyslipidemia, CAD s/p CABG x4 in 2007, CKD III, history AAA, hypothyroidism, chronic urinary retention requiring self catheterization, EMILY presented to ER today with complaint of palpitations and weakness. A. fib RVR Severe aortic insufficiency ECHO: EF 50 to 55%. Moderate concentric LVH. Left atrium is severely dilated. Moderate to severe aortic regurgitation. Eccentric aortic regurgitation jet directed towards the anterior mitral leaflet. Mild mitral regurgitation. Mild tricuspid regurgitation. Findings not suggestive of pulmonary hypertension. 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 Continue aspirin, atorvastatin, carvedilol (3) Aortic insufficiency: Plan: --ECHO: EF 50 to 55%. Moderate concentric LVH. Left atrium is severely dilated. Moderate to severe aortic regurgitation. Eccentric aortic regurgitation jet directed towards the anterior mitral valve leaflet. Mild mitral regurgitation. Mild tricuspid regurgitation. No findings suggestive of pulmonary hypertension. --Patient is to follow with Dr. 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: Plan: Chronic urinary retention S/p TURP Self straight caths 6 times daily continue to self cath as needed (9) Gout: Plan: Continue allopurinol DVT Px On Eliquis Code Status Full Code Admission and Anticipated Discharge Date Admission Date: March 17, 2022 Subjective Patient is seen and examined at bedside States feeling better today No new complaints Discussed with cardiology today Denies any chest pain, dyspnea, dizziness, nausea, abdominal pain Palpitations resolved Also discussed with patient's family at bedside Review of Systems Review of Systems: All systems reviewed & are unremarkable except as noted in Subjective Physical Exam Physical Exam: Physical Exam: Vitals signs as noted above General Appearance:Moderately built and nourished, no apparent distress Head: normocephalic, Atraumatic Eyes: normal inspection, EOMI Neck: supple, Trachea midline Respiratory/Chest: Normal breath sounds, CTA, No accessory muscle use Cardiovascular: Irregularly irregular, + murmur Abdomen/GI:Soft, Non tender, Bowel sounds present Extremities/Musculoskeletal:normal inspection, no edema Neurologic/Psych:AAOX3, grossly no focal neurological deficits Skin: normal color, warm Results & Data Results & Data ([facility]) Vital Signs (Past 12 Hours) Vital Signs Temp Pulse Pulse Resp BP BP Pulse Ox 03/19/22 15:44 36.5 C 71 18 128/66 96 03/19/22 12:01 36.5 C 70 18 117/61 93 03/19/22 08:30 03/19/22 08:22 36.3 C L 68 18 125/55 L 94 03/19/22 07:02 79 O2 Del Method 03/19/22 15:44 Room Air 03/19/22 12:01 Room Air 03/19/22 08:30 Room Air 03/19/22 08:22 Room Air 03/19/22 07:02 Laboratory Results Short CBC 03/19/22 Range/Units 06:13 WBC 6.53 (4.8-10.8) K/ul Hgb 15.3 (14.0-18.0) g/dl Hct 43.9 (40.1-51.0) % Plt Count 153 (130-400) K/uL BMP 03/19/22 06:13 Sodium 138 Potassium 3.9 Chloride 107 Carbon Dioxide 24 BUN 36 H Creatinine 1.44 H Glucose 105 H Calcium 9.2
[2022-03-19] MEDS: ASPIRIN 81 MG ECTAB PO SCH (20:48)
[2022-03-20] MEDS: LEVOTHYROXINE SODIUM 175 MCG TABLET PO SCH (05:37)
[2022-03-20 07:16] LABS: BUN Creatinine Ratio 24.2 (10-20); Calcium 9.1 mg/dl (8.5-10.1); Creatinine Clr Calc Pharmacy 48.2 ml/min; Est GFR (African American) 58.2 ml/min; Est GFR (Non-African American) 50.2 ml/min; Magnesium 1.7 mg/dl (1.7-2.4); Potassium 3.9 mmol/L (3.5-5.1)
[2022-03-20] MEDS: allopurinoL 100 MG TAB PO SCH (08:05)
[2022-03-20] MEDS: ATORVASTATIN 20 MG TAB PO SCH (08:06)
[2022-03-20] MEDS: PANTOprazole 40 MG TAB PO SCH (08:06)
[2022-03-20] MEDS: carvediloL 6.25 MG TAB PO SCH (08:06)
[2022-03-20] MEDS: APIXABAN 2.5 MG TAB PO SCH (08:06)
[2022-03-20] MEDS: CHOLECALCIFEROL 5,000 UNITS 125 MCG TAB PO SCH (08:06)
[2022-03-20] MEDS: amLODIPine BESYLATE 5 MG TAB PO SCH (08:06)
[2022-03-20] MEDS ORDERED: ADVANCED PROBIOTIC 1250 MG CAPSULE PO SCH (09:45)
[2022-03-20] MEDS: cefTRIAXone SODIUM 2,000 MG in DEXTROSE 5% 50 ML IV SCH (10:18)
--- NOTE | 2022-03-20 11:01 | Hospitalist Progress Note ---
Date of Service March 20, 2022 Assessment & Plan (1) Atrial fibrillation with RVR: Plan: Patient is 82-year-old male with PMH atrial fibrillation anticoagulated on Eliquis, severe aortic insufficiency, HTN, dyslipidemia, CAD s/p CABG x4 in 2007, CKD III, history AAA, hypothyroidism, chronic urinary retention requiring self catheterization, EMILY presented to ER today with complaint of palpitations and weakness. A. fib RVR Severe aortic insufficiency ECHO: EF 50 to 55%. Moderate concentric LVH. Left atrium is severely dilated. Moderate to severe aortic regurgitation. Eccentric aortic regurgitation jet directed towards the anterior mitral leaflet. Mild mitral regurgitation. Mild tricuspid regurgitation. Findings not suggestive of pulmonary hypertension. TSH: 0.38 Continue carvedilol as per cardiology Appreciate cardiac input On Eliquis for anticoagulation Monitor and replace electrolytes as needed Increase carvedilol to 25mg QAM and 12.5mg QPM Needs follow-up with cardiology upon discharge continue current management Abnormal urinalysis Urine culture growing gram-negative bacilli H/O Klebsiella colonization--Reviewed old records Asymptomatic Received Rocephin for 3 days Patient prefers to be discharged home and wishes to follow up cultures as outpatient (2) CAD (coronary artery disease): Plan: S/P CABG x4 s/p in 2007. Continue aspirin, atorvastatin, carvedilol (3) Aortic insufficiency: Plan: --ECHO: EF 50 to 55%. Moderate concentric LVH. Left atrium is severely dilated. Moderate to severe aortic regurgitation. Eccentric aortic regurgitation jet directed towards the anterior mitral valve leaflet. Mild mitral regurgitation. Mild tricuspid regurgitation. No findings suggestive of pulmonary hypertension. --Patient is to follow with Dr. 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: Plan: Chronic urinary retention S/p TURP Self straight caths 6 times daily continue to self cath as needed (9) Gout: Plan: Continue allopurinol DVT Px On Eliquis Code Status Full Code Disposition Home Admission and Anticipated Discharge Date Admission Date: March 17, 2022 Subjective Patient is seen and examined at bedside Doing well No new complaints Denies any chest pain, palpitation, dyspnea, dizziness, nausea, abdominal pain Discussed with patient's over the phone Prefers to be discharged home today Review of Systems Review of Systems: All systems reviewed & are unremarkable except as noted in Subjective Physical Exam Physical Exam: Physical Exam: Vitals signs as noted above General Appearance:Moderately built and nourished, no apparent distress Head: normocephalic, Atraumatic Eyes: normal inspection, EOMI Neck: supple, Trachea midline Respiratory/Chest: Normal breath sounds, CTA, No accessory muscle use Cardiovascular: Irregularly irregular, + murmur Abdomen/GI:Soft, Non tender, Bowel sounds present Extremities/Musculoskeletal:normal inspection, no edema Neurologic/Psych:AAOX3, grossly no focal neurological deficits Skin: normal color, warm Results & Data Results & Data ([facility]) Vital Signs (Past 12 Hours) Vital Signs Temp Pulse Pulse Resp BP BP Pulse Ox 03/20/22 08:10 03/20/22 07:40 36.7 C 77 18 129/57 L 96 03/20/22 06:54 71 03/20/22 03:32 36.5 C 84 16 132/52 L 96 03/19/22 23:12 36.6 C 83 18 175/66 H 97 O2 Del Method 03/20/22 08:10 Room Air 03/20/22 07:40 Room Air 03/20/22 06:54 03/20/22 03:32 Room Air 03/19/22 23:12 Room Air Laboratory Results [facility] 03/20/22 06:28 Sodium 137 Potassium 3.9 Chloride 106 Carbon Dioxide 25 BUN 32 H Creatinine 1.32 Glucose 105 H Calcium 9.1
--- NOTE | 2022-03-20 11:37 | Discharge Summary ---
Date of Service March 20, 2022 Admission HPI Per Admitting Provider Patient is 82-year-old male with PMH atrial fibrillation anticoagulated on Eliquis, severe aortic insufficiency, HTN, dyslipidemia, CAD s/p CABG x4 in 2007, CKD III, history AAA, hypothyroidism, chronic urinary retention requiring self catheterization, EMILY presented to ER today with complaint of palpitations and weakness. Patient seen at [facility] ER yesterday 03/15/2022 for palpitations and found to be in atrial fibrillation initial HR 109 and trended down to 80's-90's without further treatment. Patient takes 12.5 mg carvedilol in the a.m. and 6.25mg in the PM. Hospitalist service consulted and recommended increasing patient's carvedilol to 12.5 mg twice daily. Patient states went home and was feeling fine however today around 13:00 started with generalized weakness, palpitations followed by nausea and 1 episode of vomiting. Reports generalized weakness and palpitations continued prompting ER visit. Patient states once settled in ER symptoms resolved. No further nausea or vomiting, weakness or palpitations. Patient denies any chest pain, dizziness, lightheadedness, syncope. Patient states drinks 2 cups coffee daily, has not increased intake. Denies alcohol intake. Denies fever/chills, diaphoresis, diarrhea, constipation, KUMAR, vision changes, neck pain, CP, SOB, orthopnea, cough, sore throat, choking, otalgia, rhinorrhea, abdominal pain, paresthesias, extremity edema, rashes, urinary symptoms. Admission Exam Per Admitting Provider Physical Exam Physical Exam: General: no distress, WDWN Head: normocephalic, atraumatic Eyes: conjunctiva non-injected, anicteric ENT: normal inspection external ears, nose, mucous membranes moist Neck: supple, trachea midline Lungs: clear, no respiratory distress, no wheezing/rhonchi/rales CV: Irregularly irregular, + murmur, no pretibial edema Abd: normal BS, soft, non-tender Ext: no cyanosis, no calf tenderness Neuro: A&O x 3, no focal deficits noted, normal affect Skin: warm, dry Principal Diagnosis Atrial fibrillation with rapid ventricular response Abnormal urinalysis Discharge Data Allergies Allergy/AdvReac Type Severity Reaction Status Date / Time ragweed pollen Allergy Intermediate Sneezing Verified 02/21/22 10:59 animal dander Allergy Mild itchy Verified 02/21/22 10:59 house dust Allergy Mild Sneezing Verified 02/21/22 10:59 morphine Allergy Mild ITCHING, Verified 02/21/22 10:59 severe N/V pollen extracts Allergy Mild Sneezing Verified 02/21/22 10:59 Consultations 03/16/22 16:51 ED Decision to Admit Stat 03/17/22 08:00 Consult Cardiology Routine Procedures Performed Laboratory Results WBC 6.53 K/ul (4.8-10.8) 03/19/22 06:13 RBC 4.48 M/uL (4.63-6.08) L 03/19/22 06:13 Hgb 15.3 g/dl (14.0-18.0) 03/19/22 06:13 Hct 43.9 % (40.1-51.0) 03/19/22 06:13 MCV 98.0 fL (80.0-100.0) 03/19/22 06:13 MCH 34.2 pg (25.0-34.0) H 03/19/22 06:13 MCHC 34.9 g/dL (32.0-36.0) 03/19/22 06:13 RDW Std Deviation 46.7 fL (36.4-46.3) H 03/19/22 06:13 RDW Coeff of Daniela 13.1 % (11.5-14.5) 03/19/22 06:13 Plt Count 153 K/uL (130-400) 03/19/22 06:13 MPV 12.3 fL (9.4-12.4) 03/19/22 06:13 Immature Gran % (Auto) 0.5 % 03/16/22 15:10 Neut % (Auto) 58.4 % 03/16/22 15:10 Lymph % (Auto) 25.5 % 03/16/22 15:10 Pope % (Auto) 10.1 % 03/16/22 15:10 Eos % (Auto) 3.6 % 03/16/22 15:10 Baso % (Auto) 1.9 % 03/16/22 15:10 Neut # (Auto) 3.77 K/uL (1.4-6.5) 03/16/22 15:10 Lymph # (Auto) 1.64 K/uL (1.2-3.4) 03/16/22 15:10 Pope # (Auto) 0.65 K/uL (0.24-0.82) 03/16/22 15:10 Eos # (Auto) 0.23 K/uL (0-0.50) 03/16/22 15:10 Baso # (Auto) 0.12 K/uL (0-0.2) 03/16/22 15:10 Immature Gran # (Auto) 0.03 K/uL (0.00-0.02) H 03/16/22 15:10 PT 11.4 Seconds (9.0-12.0) 03/16/22 15:10 INR 1.1 (0.9-1.1) 03/16/22 15:10 APTT 29.6 Seconds (21.0-31.0) 03/16/22 15:10 PTT Ratio 1.1 03/16/22 15:10 Sodium 137 mmol/L (136-145) 03/20/22 06:28 Potassium 3.9 mmol/L (3.5-5.1) 03/20/22 06:28 Chloride 106 mmol/L (98-107) 03/20/22 06:28 Carbon Dioxide 25 mmol/L (21-32) 03/20/22 06:28 Anion Gap 6 (3-11) 03/20/22 06:28 BUN 32 mg/dl (6-23) H 03/20/22 06:28 Creatinine 1.32 mg/dl (0.6-1.4) 03/20/22 06:28 Est Cr Clr Drug Dosing 48.2 ml/min 03/20/22 06:28 Est GFR ( Amer) 58.2 ml/min 03/20/22 06:28 Est GFR (Non-Af Amer) 50.2 ml/min 03/20/22 06:28 BUN/Creatinine Ratio 24.2 (10-20) H 03/20/22 06:28 Glucose 105 mg/dl (70-99(Fasting)) H 03/20/22 06:28 Calcium 9.1 mg/dl (8.5-10.1) 03/20/22 06:28 Magnesium 1.7 mg/dl (1.7-2.4) 03/20/22 06:28 Total Bilirubin 0.8 mg/dl (0.2-1.0) 03/16/22 15:10 AST 19 U/L (13-39) 03/16/22 15:10 ALT 12 U/L (7-52) 03/16/22 15:10 Alkaline Phosphatase 50 U/L (34-104) 03/16/22 15:10 Troponin I High Sens 14.6 pg/ml (0-20) 03/16/22 15:10 Total Protein 7.0 gm/dl (6.0-8.3) 03/16/22 15:10 Albumin 3.9 gm/dl (3.4-5.0) 03/16/22 15:10 Globulin 3.1 gm/dl (2.5-4.0) 03/16/22 15:10 Albumin/Globulin Ratio 1.3 (0.9-2) 03/16/22 15:10 TSH 0.380 uIu/ml (0.300-4.500) 03/16/22 15:20 Urine Color Yellow 03/17/22 17:19 Urine Appearance Cloudy (Clear) A 03/17/22 17:19 Urine pH 5.5 (4.5-7.5) 03/17/22 17:19 Ur Specific [place] 1.013 (1.000-1.030) 03/17/22 17:19 Urine Protein 2+ (Negative) H 03/17/22 17:19 Urine Glucose (UA) Negative (Negative) 03/17/22 17:19 Urine Ketones Negative (Negative) 03/17/22 17:19 Urine Blood 1+ (Negative) H 03/17/22 17:19 Urine Nitrite Negative (Negative) 03/17/22 17:19 Urine Bilirubin Negative (Negative) 03/17/22 17:19 Urine Urobilinogen Negative (Negative) 03/17/22 17:19 Ur Leukocyte Esterase 2+ (Negative) H 03/17/22 17:19 Urine WBC (Auto) >30 /hpf (0-5) H 03/17/22 17:19 Urine RBC (Auto) 0-4 /hpf (0-4) 03/17/22 17:19 U Hyaline Cast (Auto) 1-5 /lpf (0-5) 03/17/22 17:19 U Epithel Cells (Auto) 0-5 /lpf (0-5) 03/17/22 17:19 Urine Bacteria (Auto) 4+ (Negative) H 03/17/22 17:19 Stl C. diff Tox B Gene Negative Cdiff Gene (Neg) 03/19/22 19:30 SARS-CoV-2, RNA, NAAT NEGATIVE (NEGATIVE) 03/16/22 17:40 Impressions Chest X-Ray 03/16/22 14:45 XR chest 2V PA/lateral HISTORY: 82 years-old Male Chest Pain acute chest pain COMPARISON: Chest radiograph 03/15/2022 TECHNIQUE: PA and lateral views of the chest FINDINGS: Cardiac silhouette is enlarged. Prior median sternotomy. No pneumothorax, pleural effusion, airspace consolidation or overt pulmonary edema. Mild hyperinflation with diaphragmatic flattening. Degenerative changes of the shoulders and spine. Hiatal hernia. Descending thoracic aortic tortuosity. IMPRESSION: Cardiomegaly without acute process. ACT 112: Negative or not required by law. The above report was generated using voice recognition software. It may contain grammatical, syntax or spelling errors. Electronically signed by: Kevin Barksdale M.D. 03/16/2022 4:09 PM Hospital Course (1) Atrial fibrillation with RVR: Patient is 82-year-old male with PMH atrial fibrillation anticoagulated on Eliquis, severe aortic insufficiency, HTN, dyslipidemia, CAD s/p CABG x4 in 2007, CKD III, history AAA, hypothyroidism, chronic urinary retention requiring self catheterization, EMILY presented to ER today with complaint of palpitations and weakness. A. fib RVR Severe aortic insufficiency ECHO: EF 50 to 55%. Moderate concentric LVH. Left atrium is severely dilated. Moderate to severe aortic regurgitation. Eccentric aortic regurgitation jet directed towards the anterior mitral leaflet. Mild mitral regurgitation. Mild tricuspid regurgitation. Findings not suggestive of pulmonary hypertension. TSH: 0.38 Continue carvedilol as per cardiology Appreciate cardiac input On Eliquis for anticoagulation Monitor and replace electrolytes as needed Increase carvedilol to 25mg QAM and 12.5mg QPM Needs follow-up with cardiology upon discharge continue current management Abnormal urinalysis Urine culture growing gram-negative bacilli H/O Klebsiella colonization--Reviewed old records Asymptomatic Received Rocephin for 3 days Patient prefers to be discharged home and wishes to follow up cultures as outpatient (2) CAD (coronary artery disease): S/P CABG x4 s/p in 2007. Continue aspirin, atorvastatin, carvedilol (3) Aortic insufficiency: --ECHO: EF 50 to 55%. Moderate concentric LVH. Left atrium is severely dilated. Moderate to severe aortic regurgitation. Eccentric aortic regurgitation jet directed towards the anterior mitral valve leaflet. Mild mitral regurgitation. Mild tricuspid regurgitation. No findings suggestive of pulmonary hypertension. --Patient is to follow with Dr. Null on 04/06/22 for TAVR evaluation Appears euvolemic currently (4) CKD (chronic kidney disease), stage III: Baseline~1.4 Monitor renal functions avoid nephrotoxic agents when possible (5) Hypertension: Continue amlodipine, carvedilol (6) Hyperlipidemia: Continue atorvastatin (7) Hypothyroidism: TSH normal Continue levothyroxine (8) Benign prostatic hyperplasia with urinary obstruction: Chronic urinary retention S/p TURP Self straight caths 6 times daily continue to self cath as needed (9) Gout: Continue allopurinol DVT Px On Eliquis Code Status Full Code Disposition Home Total Time Total Time Spent Total Time Spent (In Minutes): 49 minutes Discharge Plan Discharge Items Patient Disposition: Home - Self-Care Reason For Visit: WEAKNESS Discharge Diagnosis: Atrial fibrillation with rapid ventricular response Abnormal urinalysis Activity: Per Instructions section Exercise/Sports: Wait until after follow-up appointment Non-emergency contact: Primary Care Provider and Occupational Health Specialist Call non-emergency contact if: you have any medication questions, your symptoms worsen, your pain is concerning for you and you have a fever Follow-up/Referrals: Fredis Chawla MD [Primary Care Provider] - (Date & Time 03/24/2022 11:20 AM Provider Fredis Chawla MD Department General Internal Medicine [facility] ) Diet: Heart Healthy Addtl Attending Provider Instructions: Follow-up with your primary care physician on 03/24/2022 11:20 AM Follow-up with your vice president of academic affairs on 04/06/22 as scheduled ----Your urine culture is pending at the time of discharge. Follow-up with your physician for results. --- Start taking carvedilol 25 mg A.M. and 12.5 mg P.M. as recommended by her vice president of academic affairs. Seek immediate medical attention if your symptoms reoccur or worsen Please take all medications as instructed on discharge list below. Please call if you have any questions or problems. You can reach a [facility] hospitalist on duty at [facility] 24 hours a day by calling [phone] Pending Studies at Discharge: Yes Studies:: Urine Culture Stand-Alone Forms: My [facility], Smoking Cessation Medications and DC Order Prescriptions: New Advanced Probiotic 625 mg (10 billion cell) Capsule 2 cap PO DAILY Qty: 20 0RF carvedilol 12.5 mg tablet 12.5 mg PO BID Qty: 60 1RF Rx Instructions: must administer with a meal/food Take 25mg QAM and 12.5 mg QPM Continued nitroglycerin 0.4 mg tablet, sublingual 0.4 mg SL Q5M PRN (Reason: Pain) multivitamin Tablet 2 tab PO BID ascorbic acid (vitamin C) [Vitamin C] 1,000 mg Tablet 1,000 mg PO BID allopurinol 100 mg Tablet 100 mg PO BID omeprazole 40 mg Capsule,Delayed Release(Dr/Ec) 40 mg PO QAM aspirin [Heide Low Dose Aspirin] 81 mg Tablet,Delayed Release (Dr/Ec) 81 mg PO HS vitamin E 400 unit Capsule 400 unit PO 2XWK Rx Instructions: mon and monday fish,bora,flax oils-[id number] [Cuero 3-6-9 Complex] 400-400-400 mg Capsule 1 cap PO BID cholecalciferol (vitamin D3) [Vitamin D3] 5,000 unit Tablet 5,000 unit PO DAILY glucosamine sulfate [Glucosamine] 500 mg Tablet 1,000 mg PO DAILY acetaminophen 500 mg Tablet 1,000 mg PO Q6H PRN (Reason: Pain) coQ10 (ubiquinol) 100 mg Capsule 100 mg PO DAILY atorvastatin 20 mg tablet 20 mg PO DAILY levothyroxine 175 mcg tablet 175 mcg PO DAILY Eliquis 2.5 mg tablet 2.5 mg PO BID amlodipine 2.5 mg tablet 2.5 mg PO DAILY Discontinued carvedilol 6.25 mg tablet 6.25 mg PO UD Rx Instructions: Take 2 tabs in AM, 1 in PM Discharge Orders: Discharge Order (Routine); Ordered 03/20/22 Ordered By: Yovany Jolley Admission Data Admit Date/Time: 03/17/22 15:48 Attending Provider: Yovany Jolley Admit Provider: Navya Garza Primary Care Provider: Fredis Chawla Other Providers: Erwin Weiner ; Navya Garza ; Leon Hebert
--- NOTE | 2022-03-21 14:32 | Communication Note ---
Date of Service: March 21, 2022 Urine Culture showed Pickle Sorter which could not be speciated. Sent Cefdninir course to complete the antibiotic course. Updated patient and his over the phone. Agree with completing the course.
== END 2022-03-20 15:19 | disposition home or self-care (01) | DRG 310 ==
LOC: 2N 14:31 → ED 14:31 → SUATTDRO 17:10 → 2N 18:36

== ENCOUNTER 2022-06-07 12:03 | Inpatient (IN) ==
[2022-06-07 13:12] LABS: Basophils # (auto) 0.03 K/uL (0-0.2); Basophils % (auto) 0.7 %; Eosinophils # (auto) 0.02 K/uL (0-0.50); Eosinophils % (auto) 0.5 %; Hematocrit (blood only) 45.4 % (42.0-52.0); Hemoglobin 16.8 g/dl (14.0-18.0); Immature Granulocytes # (auto) 0.01 K/uL (0.01-0.20); Immature Granulocytes % (auto) 0.2 %; Lymphocytes # (auto) 0.62 K/uL (1.2-3.4); Lymphocytes % (auto) 14.5 %; Mean Corpuscular Volume 97.2 fL (80.0-100.0); Mean Platelet Volume 12.2 fL (9.4-12.4); Monocytes # (auto) 0.31 K/uL (0.11-0.59); Monocytes % (auto) 7.2 %; Neutrophils # (auto) 3.29 K/uL (1.40-6.50); Neutrophils % (auto) 76.9 %; Platelet Count 171 K/uL (130-400); RDW Coefficient of Variation 12.9 % (11.5-14.5); RDW Standard Deviation 46.4 fL (36.4-46.3); Red Blood Count 4.67 M/uL (4.70-6.10); White Blood Count 4.28 K/ul (4.8-10.8)
[2022-06-07 13:46] LABS: INR 1.2 (0.9-1.1); Partial Thromboplastin Ratio 1.2; Partial Thromboplastin Time 33.4 Seconds (21.0-31.0); Prothrombin Time 12.2 Seconds (9.0-12.0)
[2022-06-07 13:57] LABS: Albumin Level 3.9 gm/dl (3.4-5.0); Potassium 4.9 mmol/L (3.5-5.1)
--- NOTE | 2022-06-07 14:01 | Electrocardiogram Report ---
Test Reason : Blood Pressure : / mmHG Vent. Rate : 093 BPM Atrial Rate : 416 BPM P-R Int : 000 ms QRS Dur : 114 ms QT Int : 370 ms P-R-T Axes : 000 -08 243 degrees QTc Int : 460 ms Poor data quality, interpretation may be adversely affected Atrial fibrillation Minimal voltage criteria for LVH, may be normal variant Poor R wave progression, consider anterior GA vs. lead placement vs. LVH Abnormal ECG When compared with ECG of 17-MAR-2022 05:42, Inverted T waves have replaced nonspecific T wave abnormality in Inferior leads Confirmed by Bala Pierre ([id number]) on 06/07/2022 2:01:02 PM Referred By: Confirmed By:Kamlesh Pierre
[2022-06-07] MEDS ORDERED: SODIUM CHLORIDE 0.9% 1000ML 500 ML IV ONE (14:13)
[2022-06-07] MEDS ORDERED: ALBUTEROL HFA 8 GM INHALER INH ONE (14:19)
--- NOTE | 2022-06-07 14:25 | Emergency Department Note ---
Impression & Plan Weakness, Elevated troponin, Infection due to human metapneumovirus (hMPV), BOY (acute kidney injury), Atrial fibrillation, Pneumonia ED Provider Note NAME: ADELAIDE ESQUIVEL AGE: 82 SEX: M : 1940 ARRIVES VIA: Walk-In INFORMANT: [Patient] ED PROVIDER(S): [Xavier Orta MD] CHIEF COMPLAINT: Cardiac assessment, short of breath HISTORY OF PRESENT ILLNESS: The patient is a 82-year-old male who has a history of A-fib. He is on Eliquis and Coreg. The patient states that he has had a cold for about 6 days. He has had a cough, runny nose and may be a fever. No vomiting or diarrhea. He has felt exhausted and short of breath. Yesterday, he saw his family doctor's office and was told that his heart rate was elevated. Today, he was even more short of breath than yesterday, he presents for evaluation. He did have nasal swab performed for COVID although, the result is not yet back. The patient was placed on Tessalon, prednisone and doxycycline yesterday. PMHx/PSHx: See Below SOCIAL HISTORY: See Below. PHYSICAL EXAM: GENERAL: Patient is in no acute distress. HEENT: No acute trauma, normocephalic atraumatic, mucous membranes moist, no nasal congestion. NECK: No stridor, no adenopathy, no meningismus, trachea is midline. LUNGS: Coarse breath sounds bilaterally, breath sounds are equal but somewhat diminished bilaterally. Moist cough noted, no respiratory distress. HEART: No murmurs, mildly tachycardic, irregular rhythm. ABDOMEN: Soft, nontender, bowel sounds positive, no peritonitis. EXTREMITIES: No cyanosis or edema, full range of motion of all the joints without pain or difficulty, no signs for acute trauma. NEUROLOGIC: Oriented x 3, no acute motor or sensory deficits, no focal weakness. SKIN: No rash, no jaundice, no diaphoresis. DIFFERENTIAL DIAGNOSIS: COVID-19, influenza, viral illness, bronchitis, pneumonia, dehydration, electrolyte imbalance, dysrhythmia, anemia, among others. EMERGENCY DEPARTMENT COURSE/PROCEDURES: Prior/Outside records reviewed: None. ECG per my interpretation: Indication was shortness of breath and A-fib. The ECG shows atrial fibrillation with a rate of 93. LVH is present. There is some inverted T waves seen across the inferior and lateral leads. There is no ST elevation. No PVCs. The QTc is 460. Compared to an ECG from 17 March 2022, the rate has increased. Continuous Cardiac Monitoring per my interpretation: An order was placed for continuous cardiac monitoring. The monitor shows a rate of 104 with atrial fibrillation. MEDICAL DECISION MAKING: There is no leukocytosis. The patient's hemoglobin is normal. Platelet count is normal. INR is slightly elevated, likely from his Eliquis use. Creatinine is mildly elevated consistent with some subtle dehydration and mild acute kidney injury. No electrolyte abnormality in need of emergent correction. No concerning liver enzyme elevation. ECG shows atrial fibrillation with LVH, no obvious ischemia. Cardiac enzyme testing x1 is slightly elevated. This troponin elevation could be secondary to mismatch or potentially cardiac injury. Respiratory bio fire was positive for human metapneumovirus. BNP was elevated consistent with potential fluid overload/CHF. Chest film shows some parenchymal congestion and possible left lower infiltrate per my review. On exam, the patient had coarse breath sounds. He was not hypoxic, he was not toxic. Patient was given albuterol via MDI, he received a 500 cc saline bolus, he was given a dose of oral Tessalon. Because of the patient's complaints and chest x-ray findings, a CT of the chest was ordered. CT does show evidence for a patchy pneumonia. With the patient's findings and presentation, I do think a hospital stay is warranted. He was given 2 g of IV ceftriaxone after blood cultures were drawn. I spoke with the patient and case management, the on-call hospitalist was consulted. DISPOSITION: Patient's presentation and findings warrant a hospital stay and further work- up/care. Past Med/Surg History Medical History Abdominal aortic ectasia Per aortic duplex 10/10/19= There is evidence of a 3.5 cm x 3.5 cm abdominal aortic aneurysm. Color Doppler imaging demonstrates flow consistent with a patent lumen at and distal to the aortic aneurysm. Aortic insufficiency severe per cardio records Atrial fibrillation 06/03/22- pt currently on Eliquis Patient was previously anticoagulated with Eliquis. This was since discontinued by cardiology 04/2019 d/t no a. fib noted on Holter monitor/no known recurrence. Patient on ASA and beta viv. BPH (benign prostatic hyperplasia) CAD (coronary artery disease) s/p CABG x4 (2007) Repeat cath in 2010 showed occlusion of the vein graft to obtuse marginal per cardio records Carotid artery disease Bilateral ICAs 50-69% per 08/2019 carotid duplex CKD (chronic kidney disease), stage III Esophageal cancer Around 2006 or 2008- s/p esophagectomy- no chemo or XRT GERD (gastroesophageal reflux disease) Well controlled and stable Gout Hearing deficit Hx of myocardial infarction 2007 Hyperlipidemia Hypertension Hypothyroidism Sleep apnea can no longer tolerate Surgical History History of appendectomy History of cardiac cath X 1 SINCE 2007-NO STENTS PLACED-F/U DR JOSE LUIS BENITEZ last visit 03/2022 History of colonoscopy History of esophagogastroduodenoscopy (EGD) History of left cataract extraction 10/22/2019 History of right cataract surgery 10/08/2019. 2mg versed. 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 Beliefs That Will Affect Care: None Current Living Situation: Spouse Feels Safe at Home: Yes Assistive Devices: Denture - Lower, Glasses and Hearing Aid - Bilateral Allergies Allergies Allergy/AdvReac Type Severity Reaction Status Date / Time ragweed pollen Allergy Intermediate Sneezing Verified 06/03/22 12:02 animal dander Allergy Mild itchy Verified 06/03/22 12:02 house dust Allergy Mild Sneezing Verified 06/03/22 12:02 morphine Allergy Mild ITCHING, Verified 06/03/22 12:02 severe N/V pollen extracts Allergy Mild Sneezing Verified 06/03/22 12:02 Home Meds Home Medications Medication Instructions Recorded Confirmed allopurinol 100 mg tablet 100 mg PO BID 07/30/18 06/07/22 ascorbic acid (vitamin C) 1,000 mg 1,000 mg PO BID 07/30/18 06/07/22 tablet (Vitamin C) aspirin 81 mg tablet,delayed 81 mg PO HS 07/30/18 06/07/22 release (Heide Low Dose Aspirin) cholecalciferol (vitamin D3) 125 5,000 unit PO UD 07/30/18 06/07/22 mcg (5,000 unit) tablet (Vitamin D3) fish, borage, flaxseed oils-omega 1 cap PO BID 07/30/18 06/07/22 3,6,9 cb #1 400 mg-400 mg-400 mg cap ([place] 3-6-9 Complex) multivitamin 2 tab PO BID 07/30/18 06/07/22 omeprazole 40 mg capsule,delayed 40 mg PO QAM 07/30/18 06/07/22 release vitamin E 268 mg (400 unit) capsule 400 unit PO 2XWK 07/30/18 06/07/22 acetaminophen 500 mg tablet 1,000 mg PO Q6H PRN Pain 09/19/19 06/07/22 glucosamine sulfate 500 mg tablet 1,000 mg PO QAM 09/19/19 06/07/22 (Glucosamine) nitroglycerin 0.4 mg sublingual 0.4 mg sublingual Q5M PRN Pain 10/09/19 06/07/22 tablet coQ10 (ubiquinol) 100 mg capsule 100 mg PO QAM 06/05/20 06/07/22 apixaban 2.5 mg tablet (Eliquis) 2.5 mg PO BID 03/15/22 06/07/22 atorvastatin 20 mg tablet 20 mg PO QAM 03/15/22 06/07/22 levothyroxine 175 mcg tablet 175 mcg PO QAM 03/15/22 06/07/22 amlodipine 2.5 mg tablet 2.5 mg PO QAM 03/16/22 06/07/22 cholestyramine-aspartame 4 gram 4 g PO QAM 06/03/22 06/07/22 oral powder (Cholestyramine Light) benzonatate 100 mg capsule 100 mg PO DAILY 06/07/22 06/07/22 doxycycline hyclate 100 mg capsule 100 mg PO DAILY 06/07/22 06/07/22 prednisone 20 mg tablet 20 mg PO DAILY 06/07/22 06/07/22 Previous Rx's Medication Instructions Recorded L.acidop,casei,lactis,rham-B.lact,saurabh 2 cap PO DAILY #20 caps 03/20/22 625 mg (10 billion cell) capsule (Advanced Probiotic) carvedilol 12.5 mg tablet 12.5 mg PO BID #60 tabs 03/20/22 Results & Data (ED) Vital Signs Vital Signs - 24 hr 06/07/22 12:15 06/07/22 14:39 06/07/22 14:30 Temperature 36.3 C L Temperature Source Temporal Artery Scan Pulse Rate 104 H 99 H 90 Pulse Rate from SpO2 Sensor 91 H Respiratory Rate 17 18 Blood Pressure 121/69 129/54 L Blood Pressure Mean 86 79 Pulse Oximetry 95 92 Oxygen Delivery Method Room Air Sepsis Recent Fever Within 48 Hours No Sepsis New/Unexplained Change in Mental Status No Sepsis Action Taken by Nursing No Action Required Home Medications Current Medication List: was personally reviewed by me Laboratory Data Attestation: I reviewed the patient's lab results. 06/07/22 12:27 06/07/22 12:27 Lab Results 06/07/22 06/07/22 06/07/22 Range/Units 12:27 12:27 12:27 WBC 4.28 L (4.8-10.8) K/ul RBC 4.67 L (4.70-6.10) M/uL Hgb 16.8 (14.0-18.0) g/dl Hct 45.4 (42.0-52.0) % MCV 97.2 (80.0-100.0) fL MCH 36.0 H (25.0-34.0) pg MCHC 37.0 H (32.0-36.0) g/dL RDW Std Deviation 46.4 H (36.4-46.3) fL RDW Coeff of Daniela 12.9 (11.5-14.5) % Plt Count 171 (130-400) K/uL MPV 12.2 (9.4-12.4) fL Immature Gran % (Auto) 0.2 % Neut % (Auto) 76.9 % Lymph % (Auto) 14.5 % [place]ill % (Auto) 7.2 % Eos % (Auto) 0.5 % Baso % (Auto) 0.7 % Neut # (Auto) 3.29 (1.40-6.50) K/uL Lymph # (Auto) 0.62 L (1.2-3.4) K/uL Hemphill # (Auto) 0.31 (0.11-0.59) K/uL Eos # (Auto) 0.02 (0-0.50) K/uL Baso # (Auto) 0.03 (0-0.2) K/uL Immature Gran # (Auto) 0.01 (0.01-0.20) K/uL PT 12.2 H (9.0-12.0) Seconds INR 1.2 H (0.9-1.1) APTT 33.4 H (21.0-31.0) Seconds PTT Ratio 1.2 Sodium 134 L (136-145) mmol/L Potassium 4.9 (3.5-5.1) mmol/L Chloride 99 (98-107) mmol/L Carbon Dioxide 27 (21-32) mmol/L Anion Gap 8 (3-11) BUN 32 H (6-23) mg/dl Creatinine 1.60 H (0.6-1.4) mg/dl Est Cr Clr Drug Dosing 38.6 ml/min Est GFR ( Amer) 46.1 ml/min Est GFR (Non-Af Amer) 39.8 ml/min BUN/Creatinine Ratio 20.0 (10-20) Glucose 133 H (70-99(Fasting)) mg/dl Calcium 9.4 (8.5-10.1) mg/dl Magnesium 1.7 (1.7-2.4) mg/dl Total Bilirubin 0.9 (0.2-1.0) mg/dl AST 22 (13-39) U/L ALT 9 (7-52) U/L Alkaline Phosphatase 50 (34-104) U/L Troponin I High Sens 27.0 H (0-20) pg/ml B-Natriuretic Peptide (0-100) pg/ml Total Protein 6.8 (6.0-8.3) gm/dl Albumin 3.9 (3.4-5.0) gm/dl Globulin 2.9 (2.5-4.0) gm/dl Albumin/Globulin Ratio 1.3 (0.9-2) Adenovirus (PCR) (NotDetected) B. pertussis DNA (PCR) (NotDetected) B.parapertussis DNA PCR (NotDetected) C. pneumoniae DNA (PCR) (NotDetected) Coronavirus OC43 (PCR) (NotDetected) Coronavirus HKU1 (PCR) (NotDetected) Coronavirus 229E (PCR) (NotDetected) SARS-CoV-2 (PCR) (NotDetected) Coronavirus NL63 (PCR) (NotDetected) Human Metapneumovir PCR (NotDetected) Influenza Type A (PCR) (NotDetected) Influenza Type B (PCR) (NotDetected) M. pneumoniae (PCR) (NotDetected) Parainfluenza 1 (PCR) (NotDetected) Parainfluenza 2 (PCR) (NotDetected) Parainfluenza 3 (PCR) (NotDetected) Parainfluenza 4 (PCR) (NotDetected) RSV (PCR) (NotDetected) Entero/Rhino (PCR) (NotDetected) 06/07/22 06/07/22 Range/Units 14:41 16:01 WBC (4.8-10.8) K/ul RBC (4.70-6.10) M/uL Hgb (14.0-18.0) g/dl Hct (42.0-52.0) % MCV (80.0-100.0) fL MCH (25.0-34.0) pg MCHC (32.0-36.0) g/dL RDW Std Deviation (36.4-46.3) fL RDW Coeff of Daniela (11.5-14.5) % Plt Count (130-400) K/uL MPV (9.4-12.4) fL Immature Gran % (Auto) % Neut % (Auto) % Lymph % (Auto) % [place] % (Auto) % Eos % (Auto) % Baso % (Auto) % Neut # (Auto) (1.40-6.50) K/uL Lymph # (Auto) (1.2-3.4) K/uL [place] # (Auto) (0.11-0.59) K/uL Eos # (Auto) (0-0.50) K/uL Baso # (Auto) (0-0.2) K/uL Immature Gran # (Auto) (0.01-0.20) K/uL PT (9.0-12.0) Seconds INR (0.9-1.1) APTT (21.0-31.0) Seconds PTT Ratio Sodium (136-145) mmol/L Potassium (3.5-5.1) mmol/L Chloride (98-107) mmol/L Carbon Dioxide (21-32) mmol/L Anion Gap (3-11) BUN (6-23) mg/dl Creatinine (0.6-1.4) mg/dl Est Cr Clr Drug Dosing ml/min Est GFR ( Amer) ml/min Est GFR (Non-Af Amer) ml/min BUN/Creatinine Ratio (10-20) Glucose (70-99(Fasting)) mg/dl Calcium (8.5-10.1) mg/dl Magnesium (1.7-2.4) mg/dl Total Bilirubin (0.2-1.0) mg/dl AST (13-39) U/L ALT (7-52) U/L Alkaline Phosphatase (34-104) U/L Troponin I High Sens (0-20) pg/ml B-Natriuretic Peptide 634 H (0-100) pg/ml Total Protein (6.0-8.3) gm/dl Albumin (3.4-5.0) gm/dl Globulin (2.5-4.0) gm/dl Albumin/Globulin Ratio (0.9-2) Adenovirus (PCR) Not Detected (NotDetected) B. pertussis DNA (PCR) Not Detected (NotDetected) B.parapertussis DNA PCR Not Detected (NotDetected) C. pneumoniae DNA (PCR) Not Detected (NotDetected) Coronavirus OC43 (PCR) Not Detected (NotDetected) Coronavirus HKU1 (PCR) Not Detected (NotDetected) Coronavirus 229E (PCR) Not Detected (NotDetected) SARS-CoV-2 (PCR) Not Detected (NotDetected) Coronavirus NL63 (PCR) Not Detected (NotDetected) Human Metapneumovir PCR DETECTED A* (NotDetected) Influenza Type A (PCR) Not Detected (NotDetected) Influenza Type B (PCR) Not Detected (NotDetected) M. pneumoniae (PCR) Not Detected (NotDetected) Parainfluenza 1 (PCR) Not Detected (NotDetected) Parainfluenza 2 (PCR) Not Detected (NotDetected) Parainfluenza 3 (PCR) Not Detected (NotDetected) Parainfluenza 4 (PCR) Not Detected (NotDetected) RSV (PCR) Not Detected (NotDetected) Entero/Rhino (PCR) Not Detected (NotDetected) Administered Medications Discontinued Medications Albuterol (Albuterol Hfa 8 Gm Inhaler) 2 puffs INH NOW ONE Stop: 06/07/22 14:20 Last Admin: 06/07/22 14:36 Dose: 2 puffs Documented By: BARBARA Benzonatate (Benzonatate 100 Mg Capsule) 100 mg PO NOW ONE Stop: 06/07/22 15:59 Last Admin: 06/07/22 16:20 Dose: 100 mg Documented By: BARBARA Sodium Chloride (Nss 1000ml) 500 mls @ 999 mls/hr IV .Q31M ONE Stop: 06/07/22 14:43 Last Infusion: 06/07/22 16:16 Dose: 0 mls/hr Documented By: Admin: 06/07/22 14:36 Dose: 999 mls/hr Documented By: BARBARA Imaging Data Radiologist's Impression: Chest X-Ray 06/07/22 14:13 XR chest 1V portable CLINICAL HISTORY: sob TECHNIQUE: Single frontal radiograph of the chest was obtained. Comparison: Comparison is made to chest radiograph 03/16/2022 FINDINGS: Median sternotomy wires are unchanged. Cardiomegaly is noted. There is prominence and cephalization of the vasculature with Damaris B lines seen. No evidence of pleural effusion or pneumothorax. IMPRESSION: Cardiomegaly and moderate pulmonary edema. ACT 112: Negative or not required by law. Electronically signed by: Rich Fernandez M.D. 06/07/2022 3:[address] 06/07/22 15:53 CT chest diagnostic wo con CT DOSE: 517.62 mGy.cm HISTORY: Shortness of breath, poss pneumonia TECHNIQUE: Multiaxial CT images of the chest were performed without contrast. A dose lowering technique was utilized adhering to the principles of ALARA. COMPARISON: Abdomen and pelvis CT 11/28/2020. FINDINGS: Postoperative changes consistent with a prior esophagectomy with ga stric pull-up. The heart remains mildly enlarged. No pleural or pericardial effusions. Mild calcified plaque within the normal caliber thoracic aorta. There are few calcified mediastinal and right hilar lymph nodes. No lymphadenopathy identified within the chest. Limited views of the upper abdomen demonstrate a few punctate calcified granulomas within the liver and spleen. Normal adrenal glands. Bilateral nephrolithiasis. Partially calcified left renal lesion measuring approximately 3.7 cm remains stable. There are poststernotomy changes. No acute fractures identified. The central airways are patent. No pneumothorax. A few scattered patchy groundglass and tree-in-bud nodular opacities seen within the lungs. This is most pronounced within the lower lobes and favors an atypical pneumonia. IMPRESSION: 1. Postoperative changes consistent with a prior esophagectomy with gastric pull-up. 2. Mild mild cardiomegaly. 3. A few scattered patchy groundglass and tree-in-bud nodular opacities seen within the lungs. This is most pronounced within the lower lobes and could be due to an atypical pneumonia/aspiration. ACT 112: Negative or not required by law. Electronically signed by: Gian Carvalho M.D. 06/07/2022 4:43 PM Discharge Plan Visit Data Chief Complaint: Cardiac Assessment Stated Complaint: IS HAVING AFIB PROBLEMS ED Provider: Xavier Orta Discharge Problem: Weakness, Elevated troponin, Infection due to human metapneumovirus (hMPV), BOY (acute kidney injury), Atrial fibrillation, Pneumonia Patient Disposition: Admitted As Inpatient Condition: Fair Forms Stand Alone Forms: [facility] [employer] Prescriptions Prescriptions: No Action nitroglycerin 0.4 mg tablet, sublingual 0.4 mg SL Q5M PRN (Reason: Pain) multivitamin Tablet 2 tab PO BID ascorbic acid (vitamin C) [Vitamin C] 1,000 mg Tablet 1,000 mg PO BID allopurinol 100 mg Tablet 100 mg PO BID omeprazole 40 mg Capsule,Delayed Release(Dr/Ec) 40 mg PO QAM aspirin [[place] Low Dose Aspirin] 81 mg Tablet,Delayed Release (Dr/Ec) 81 mg PO HS vitamin E 400 unit Capsule 400 unit PO 2XWK Rx Instructions: mon and monday fish,bora,flax oils-om3,[id number] [[place] 3-6-9 Complex] 400-400-400 mg Capsule 1 cap PO BID cholecalciferol (vitamin D3) [Vitamin D3] 5,000 unit Tablet 5,000 unit PO UD Rx Instructions: takes every other day glucosamine sulfate [Glucosamine] 500 mg Tablet 1,000 mg PO QAM acetaminophen 500 mg Tablet 1,000 mg PO Q6H PRN (Reason: Pain) coQ10 (ubiquinol) 100 mg Capsule 100 mg PO QAM Cholestyramine Light 4 gram Powder 4 g PO QAM Rx Instructions: administer w/meal; avoid other meds within 1hr before or 4-6hr after dose doxycycline hyclate 100 mg capsule 100 mg PO DAILY prednisone 20 mg tablet 20 mg PO DAILY benzonatate 100 mg capsule 100 mg PO DAILY atorvastatin 20 mg tablet 20 mg PO QAM levothyroxine 175 mcg tablet 175 mcg PO QAM Eliquis 2.5 mg tablet 2.5 mg PO BID amlodipine 2.5 mg tablet 2.5 mg PO QAM Advanced Probiotic 625 mg (10 billion cell) Capsule 2 cap PO DAILY Qty: 20 0RF carvedilol 12.5 mg tablet 12.5 mg PO BID Qty: 60 1RF Rx Instructions: must administer with a meal/food Take 25mg QAM and 12.5 mg QPM Referrals Referrals: Yanick Canseco DO [Primary Care Provider] - Atrial fibrillation Qualifiers: Atrial fibrillation type: unspecified Qualified Code(s): I48.91 - Unspecified atrial fibrillation Pneumonia Qualifiers: Pneumonia type: due to unspecified organism Laterality: bilateral Lung location: unspecified part of lung Qualified Code(s): J18.9 - Pneumonia, unspecified organism
--- NOTE | 2022-06-07 15:03 | XRay Report ---
XR chest 1V portable CLINICAL HISTORY: sob TECHNIQUE: Single frontal radiograph of the chest was obtained. Comparison: Comparison is made to chest radiograph 03/16/2022 FINDINGS: Median sternotomy wires are unchanged. Cardiomegaly is noted. There is prominence and cephalization o f the vasculature with Damaris B lines seen. No evidence of pleural effusion or pneumothorax. IMPRESSION: Cardiomegaly and moderate pulmonary edema. ACT 112: Negative or not required by law. Electronically signed by: Rich Fernandez M.D. 06/07/2022 3:02 PM
[2022-06-07 15:28] LABS: Bilirubin,Total 0.9 mg/dl (0.2-1.0); Calcium 9.4 mg/dl (8.5-10.1); Magnesium 1.7 mg/dl (1.7-2.4)
[2022-06-07 15:34] LABS: Albumin Globulin Ratio 1.3 (0.9-2); Creatinine Clr Calc Pharmacy 38.6 ml/min; Est GFR (African American) 46.1 ml/min; Est GFR (Non-African American) 39.8 ml/min; Globulin 2.9 gm/dl (2.5-4.0); Total Protein 6.8 gm/dl (6.0-8.3)
[2022-06-07 15:46] LABS: Adenovirus PCR Not Detected (NotDetected); Bordetella parapertussis PCR Not Detected (NotDetected); Bordetella pertussis PCR Not Detected (NotDetected); Chlamydia pneumoniae PCR Not Detected (NotDetected); Coronavirus 229E PCR Not Detected (NotDetected); Coronavirus CoV-2 (COVID19)PCR Not Detected (NotDetected); Coronavirus HKU1 PCR Not Detected (NotDetected); Coronavirus NL63 PCR Not Detected (NotDetected); Coronavirus OC43PCR Not Detected (NotDetected); Influenza A PCR Not Detected (NotDetected); Influenza B PCR Not Detected (NotDetected); Mycoplasma pneumoniae PCR Not Detected (NotDetected); Parainfluenza Virus 1 PCR Not Detected (NotDetected); Parainfluenza Virus 2 PCR Not Detected (NotDetected); Parainfluenza Virus 3 PCR Not Detected (NotDetected); Parainfluenza Virus 4 PCR Not Detected (NotDetected); Respiratory Syncytial VirusPCR Not Detected (NotDetected); Rhinovirus/Enterovirus PCR Not Detected (NotDetected)
[2022-06-07 15:52] LABS: Human Metapneumovirus PCR DETECTED (NotDetected)
[2022-06-07] MEDS ORDERED: BENZONATATE 100 MG CAPSULE PO ONE (15:58)
--- NOTE | 2022-06-07 16:45 | CT Scan Report ---
CT chest diagnostic wo con CT DOSE: 517.62 mGy.cm HISTORY: Shortness of breath, poss pneumonia TECHNIQUE: Multiaxial CT images of the chest were performed without contrast. A dose lowering techni que was utilized adhering to the principles of ALARA. COMPARISON: Abdomen and pelvis CT 11/28/2020. FINDINGS: Postoperative changes consistent with a prior esophagectomy with gastric pull-up. The heart remains mildly enlarged. No pleural or pericardial effusions. Mild calcified plaque within the lety l caliber thoracic aorta. There are few calcified mediastinal and right hilar lymph nodes. No lymphad enopathy identified within the chest. Limited views of the upper abdomen demonstrate a few punctate c alcified granulomas within the liver and spleen. Normal adrenal glands. Bilateral nephrolithiasis. Pa rtially calcified left renal lesion measuring approximately 3.7 cm remains stable. There are postster notomy changes. No acute fractures identified. The central airways are patent. No pneumothorax. A few scattered patchy groundglass and tree-in-bud nodular opacities seen within the lungs. This is most p ronounced within the lower lobes and favors an atypical pneumonia. IMPRESSION: 1. Postoperative changes consistent with a prior esophagectomy with gastric pull-up. 2. Mild mild cardiomegaly. 3. A few scattered patchy groundglass and tree-in-bud nodular opacities seen within the lungs. This i s most pronounced within the lower lobes and could be due to an atypical pneumonia/aspiration. ACT 112: Negative or not required by law. Electronically signed by: Gian Carvalho M.D. 06/07/2022 4:43 PM
[2022-06-07] MEDS ORDERED: cefTRIAXone SODIUM 2,000 MG/70 ML BAG IV STA (16:46)
--- NOTE | 2022-06-07 17:12 | History & Physical Report ---
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 Pneumonia Acute LURI +Human metapneumovirus PCR admit to telemetry obtain procalcitonin CXR/CT consistent with PNA, possibly viral vs bacteria received rocephin in ED and started on oral doxy yesterday if procal + will continue antibiotics pulmonary toilet with xopenex prn, incentive spirometry, flutter valve o2 as needed, currently not requiring supplemental oxygen tessalon perles as needed CKD-3 pt with mild elevated in cr, cr 1.6 today baseline 1.3-1.5 likely dehydrated, no signs of overload received 500ml in ED, encourage oral intake follow labs PAF pt in afib, rates improved after 500ml IVF bolus continue coreg, eliquis likely exacerbated in setting of pulmonary illness monitor on tele Generalized weakness 2/2 above PT/OT CAD w/ hx of CABG HTN Elevated troponin Elevated BNP - clinically pt does not appear to be in heart failure continue coreg, amlodipine, asa and statin pt denies CP, likely in setting of acute illness cycle trops Hx of esophageal Ca s/p esophagectomy continue PPI Pre Diabetes a1c 6.1 02/2022 obtain a1c obtain accuchecks, no insulin coverage may have some hyperglycemia in setting of steroid, if so can add novolog coverage DVT ppx: Eliquis DNR/DNI PCP: Harleen Dispo: tele, PT/OT consulted Pt was seen and examined in collaboration with Dr. Madrigal, please see addendum A total of 75 minutes were spent with greater than 50% of that time face to face with the patient, personally reviewing all current laboratories, imaging studies, past medication reconciliation, outpatient chart review, and discussion with specialists to collaborate care for the patient with attending. Please see attending documentation for corrections and/or additions. History of Present Illness Chief Complaint: Ill feeling x 1 week. 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 Of significance patient saw PCP Dr. Canseco yesterday secondary to cough and decreased appetite. Positive sick contacts with . He was felt to have complicated bronchitis and treated with prednisone, Tessalon Perles and started on doxycycline. Due to symptoms worsening he presented to ER today. Today he had to take the dog to the groomer and he felt much more SOB requiring him to sit down multiple times. So prior to taking dog he ended up laying back down. He had a decrease in energy and appetite. This felt similar to his previous hx of afib. Currently he is hungry and thirsty and feels a bit better than when he presented. Currently he denies f/c/s, dizziness, lightheaded, chest pain, palpitations, sob at rest, n/v/d, abd pain, change in bowel or urinary sx. He just walked into the bathroom and didn't feel SOB. He complains of cough, rhinorrhea and sneezing. The cough is periodic. THe rhinorrhea and sneezing went away. He took all his medications today. He denies prior hx of asthma/copd. Prior hx of smoking but quit 40 yrs ago. He feels he smoked for 20 years. Allergies Allergy/AdvReac Type Severity Reaction Status Date / Time ragweed pollen Allergy Intermediate Sneezing Verified 06/03/22 12:02 animal dander Allergy Mild itchy Verified 06/03/22 12:02 house dust Allergy Mild Sneezing Verified 06/03/22 12:02 morphine Allergy Mild ITCHING, Verified 06/03/22 12:02 severe N/V pollen extracts Allergy Mild Sneezing Verified 06/03/22 12:02 Home Medications Medication Instructions Recorded Confirmed Type allopurinol 100 mg tablet 100 mg PO BID 07/30/18 06/07/22 History ascorbic acid (vitamin C) 1,000 mg 1,000 mg PO BID 07/30/18 06/07/22 History tablet (Vitamin C) aspirin 81 mg tablet,delayed 81 mg PO HS 07/30/18 06/07/22 History release ([place] Low Dose Aspirin) cholecalciferol (vitamin D3) 125 5,000 unit PO UD 07/30/18 06/07/22 History mcg (5,000 unit) tablet (Vitamin D3) fish, borage, flaxseed oils-omega 1 cap PO BID 07/30/18 06/07/22 History 3,6,9 cb #1 400 mg-400 mg-400 mg cap ([place] 3-6-9 Complex) multivitamin 2 tab PO BID 07/30/18 06/07/22 History omeprazole 40 mg capsule,delayed 40 mg PO QAM 07/30/18 06/07/22 History release vitamin E 268 mg (400 unit) capsule 400 unit PO SUWE@0900 07/30/18 06/07/22 History acetaminophen 500 mg tablet 1,000 mg PO Q6H PRN Pain 09/19/19 06/07/22 History glucosamine sulfate 500 mg tablet 1,000 mg PO QAM 09/19/19 06/07/22 History (Glucosamine) nitroglycerin 0.4 mg sublingual 0.4 mg sublingual Q5M PRN Pain 10/09/19 06/07/22 History tablet apixaban 2.5 mg tablet (Eliquis) 2.5 mg PO BID 03/15/22 06/07/22 History atorvastatin 20 mg tablet 20 mg PO QAM 03/15/22 06/07/22 History amlodipine 2.5 mg tablet 2.5 mg PO QAM 03/16/22 06/07/22 History L.acidop,casei,lactis,rham-B.lact,saurabh 2 cap PO DAILY #20 caps 03/20/22 06/07/22 Rx 625 mg (10 billion cell) capsule (Advanced Probiotic) carvedilol 12.5 mg tablet 12.5 mg PO BID #60 tabs 03/20/22 06/07/22 Rx cholestyramine-aspartame 4 gram 4 g PO QAM 06/03/22 06/07/22 History oral powder (Cholestyramine Light) benzonatate 100 mg capsule 100 mg PO TID PRN Cough 06/07/22 06/07/22 History coenzyme Q10 100 mg capsule 600 mg PO DAILY 06/07/22 06/07/22 History (CoQ-10) cranberry 500 mg capsule 500 mg PO DAILY 06/07/22 06/07/22 History doxycycline hyclate 100 mg capsule 100 mg PO BID 06/07/22 06/07/22 History levothyroxine 150 mcg tablet 150 mcg PO DAILY 06/07/22 06/07/22 History prasterone (dhea) 50 mg capsule 50 mg PO DAILY 06/07/22 06/07/22 History (DHEA) prednisone 20 mg tablet 20 mg PO DAILY 06/07/22 06/07/22 History Past Med/Surg History Medical History Abdominal aortic ectasia Per aortic duplex 10/10/19= There is evidence of a 3.5 cm x 3.5 cm abdominal aortic aneurysm. Color Doppler imaging demonstrates flow consistent with a patent lumen at and distal to the aortic aneurysm. Aortic insufficiency severe per cardio records Atrial fibrillation 06/03/22- pt currently on Eliquis Patient was previously anticoagulated with Eliquis. This was since discontinued by cardiology 04/2019 d/t no a. fib noted on Holter monitor/no known recurrence. Patient on ASA and beta viv. BPH (benign prostatic hyperplasia) CAD (coronary artery disease) s/p CABG x4 (2007) Repeat cath in 2010 showed occlusion of the vein graft to obtuse marginal per cardio records Carotid artery disease Bilateral ICAs 50-69% per 08/2019 carotid duplex CKD (chronic kidney disease), stage III Esophageal cancer Around 2006 or 2008- s/p esophagectomy- no chemo or XRT GERD (gastroesophageal reflux disease) Well controlled and stable Gout Hearing deficit Hx of myocardial infarction 2007 Hyperlipidemia Hypertension Hypothyroidism Sleep apnea can no longer tolerate Surgical History History of appendectomy History of cardiac cath X 1 SINCE 2007-NO STENTS PLACED-F/U DR JOSE LUIS BENITEZ last visit 03/2022 History of colonoscopy History of esophagogastroduodenoscopy (EGD) History of left cataract extraction 10/22/2019 History of right cataract surgery 10/08/2019. 2mg versed. Hx of esophagectomy d/t esophageal cancer (~2006) Hx of heart bypass surgery 4 vessels - 2008- done in [place], [place] Hx of transurethral resection of prostate x3 Family History Father Family history of diabetes mellitus Other No family history of adverse response to anesthesia Social History (Updated 06/07/22 @ 17:24 by Irma Seaman PA-C) Smoking Status: Former smoker Cigarettes Per Day: QUIT ~40 YRS AGO; Second Hand Exposure: No; Hx Alcohol Use: No Hx Substance Use: No Preferred Language: Finnish Communication Ability: Effective Wheel Alignment Technician Required: No Beliefs That Will Affect Care: None Current Living Situation: Spouse Feels Safe at Home: Yes Assistive Devices: Denture - Lower, Glasses and Hearing Aid - Bilateral Review of Systems Review of Systems: All systems reviewed & are unremarkable except as noted in HPI & below Physical Exam Physical Exam: please refer to Dr. Madrigal addendum for physical exam findings. Results & Data Results & Data ([facility]) Vital Signs (Past 12 Hours) Vital Signs Temp Pulse Resp BP Pulse Ox O2 Del Method 06/07/22 14:30 90 18 129/54 L 92 06/07/22 14:39 99 H 06/07/22 12:15 36.3 C L 104 H 17 121/69 95 Room Air Diagnostic Findings Chest X-Ray 06/07/22 14:13 XR chest 1V portable CLINICAL HISTORY: sob TECHNIQUE: Single frontal radiograph of the chest was obtained. Comparison: Comparison is made to chest radiograph 03/16/2022 FINDINGS: Median sternotomy wires are unchanged. Cardiomegaly is noted. There is prominence and cephalization of the vasculature with Damaris B lines seen. No evidence of pleural effusion or pneumothorax. IMPRESSION: Cardiomegaly and moderate pulmonary edema. ACT 112: Negative or not required by law. Electronically signed by: Rich Fernandez M.D. 06/07/2022 3:[address] 06/07/22 15:53 CT chest diagnostic wo con CT DOSE: 517.62 mGy.cm HISTORY: Shortness of breath, poss pneumonia TECHNIQUE: Multiaxial CT images of the chest were performed without contrast. A dose lowering technique was utilized adhering to the principles of ALARA. COMPARISON: Abdomen and pelvis CT 11/28/2020. FINDINGS: Postoperative changes consistent with a prior esophagectomy with gastric pull-up. The heart remains mildly enlarged. No pleural or pericardial effusions. Mild calcified plaque within the normal caliber thoracic aorta. There are few calcified mediastinal and right hilar lymph nodes. No lymphadenopathy identified within the chest. Limited views of the upper abdomen demonstrate a few punctate calcified granulomas within the liver and spleen. Normal adrenal glands. Bilateral nephrolithiasis. Partially calcified left renal lesion measuring approximately 3.7 cm remains stable. There are poststernotomy changes. No acute fractures identified. The central airways are patent. No pneumothorax. A few scattered patchy groundglass and tree-in-bud nodular opacities seen within the lungs. This is most pronounced within the lower lobes and favors an atypical pneumonia. IMPRESSION: 1. Postoperative changes consistent with a prior esophagectomy with gastric pull-up. 2. Mild mild cardiomegaly. 3. A few scattered patchy groundglass and tree-in-bud nodular opacities seen within the lungs. This is most pronounced within the lower lobes and could be due to an atypical pneumonia/aspiration. ACT 112: Negative or not required by law. Electronically signed by: Gian Carvalho M.D. 06/07/2022 4:43 PM Medications Administered Medication List Discontinued Medications Albuterol (Albuterol Hfa 8 Gm Inhaler) 2 puffs INH NOW ONE Stop: 06/07/22 14:20 Last Admin: 06/07/22 14:36 Dose: 2 puffs Documented By: BARBARA Benzonatate (Benzonatate 100 Mg Capsule) 100 mg PO NOW ONE Stop: 06/07/22 15:59 Last Admin: 06/07/22 16:20 Dose: 100 mg Documented By: BARBARA Sodium Chloride (Nss 1000ml) 500 mls @ 999 mls/hr IV .Q31M ONE Stop: 06/07/22 14:43 Last Infusion: 06/07/22 16:16 Dose: 0 mls/hr Documented By: Admin: 06/07/22 14:36 Dose: 999 mls/hr Documented By: BARBARA ECG Rate (beats per minute): 93 Rhythm: atrial fibrillation Additional Comments: qtc 460ms, T wave inverted in leads II, V5/V6, interpreted by myself COVID-19 Results Results COVID-19 Adm Lab Results: RBC 4.67 M/uL (4.70-6.10) L 06/07/22 WBC 4.28 K/ul (4.8-10.8) L 06/07/22 Hgb 16.8 g/dl (14.0-18.0) 06/07/22 Hct 45.4 % (42.0-52.0) 06/07/22 Plt Count 171 K/uL (130-400) 06/07/22 Neutrophils (%) (Auto) 76.9 % 06/07/22 Lymphocytes (%) (Auto) 14.5 % 06/07/22 Monocytes # (Auto) 0.31 K/uL (0.11-0.59) 06/07/22 Eosinophils # (Auto) 0.02 K/uL (0-0.50) 06/07/22 Immature Granulocyte % (Auto) 0.2 % 06/07/22 Neutrophils # (Auto) 3.29 K/uL (1.40-6.50) 06/07/22 Lymphocytes # (Auto) 0.62 K/uL (1.2-3.4) L 06/07/22 Monocytes # (Auto) 0.31 K/uL (0.11-0.59) 06/07/22 Eosinophils # (Auto) 0.02 K/uL (0-0.50) 06/07/22 Basophils # (Auto) 0.03 K/uL (0-0.2) 06/07/22 Immature Granulocyte # (Auto) 0.01 K/uL (0.01-0.20) 3 Na 134 mmol/L (136-145) L 06/07/22 K 4.9 mmol/L (3.5-5.1) 06/07/22 Cl 99 mmol/L (98-107) 06/07/22 CO2 27 mmol/L (21-32) 06/07/22 Anion Gap 8 (3-11) 06/07/22 BUN 32 mg/dl (6-23) H 06/07/22 Creatinine 1.60 mg/dl (0.6-1.4) H 06/07/22 BUN/Creatinine Ratio 20.0 (10-20) 06/07/22 Glucose Level 133 mg/dl (70-99(Fasting)) H 06/07/22 Ca 9.4 mg/dl (8.5-10.1) 06/07/22 Total Bilirubin 0.9 mg/dl (0.2-1.0) 06/07/22 AST/SGOT 22 U/L (13-39) 06/07/22 ALT/SGPT 9 U/L (7-52) 06/07/22 Alkaline Phosphatase 50 U/L (34-104) 06/07/22 Total Protein 6.8 gm/dl (6.0-8.3) 06/07/22 Albumin 3.9 gm/dl (3.4-5.0) 06/07/22 Globulin 2.9 gm/dl (2.5-4.0) 06/07/22 Albumin/Globulin Ratio 1.3 (0.9-2) 06/07/22 Procalcitonin Pending 06/07/22 PTT 33.4 Seconds (21.0-31.0) H 06/07/22 INR 1.2 (0.9-1.1) H 06/07/22 Adenovirus (PCR) Not Detected (NotDetected) 06/07/22 B. parapertussis DNA (PCR) Not Detected (NotDetected) 05/19 05/09 B. pertussis DNA (PCR) Not Detected (NotDetected) 06/07/22 C. pneumoniae DNA (PCR) Not Detected (NotDetected) 3 Coronavirus Type OC43 (PCR) Not Detected (NotDetected) Coronavirus Type HKU1 (PCR) Not Detected (NotDetected) Coronavirus Type 229E (PCR) Not Detected (NotDetected) COVID-19 PCR Not Detected (NotDetected) 06/07/22 Coronavirus Type NL63 (PCR) Not Detected (NotDetected) Human Metapneumovirus (PCR) DETECTED (NotDetected) A* 05/19 05/09 Influenza Virus Type A (PCR) Not Detected (NotDetected) Influenza Virus Type B (PCR) Not Detected (NotDetected) M. pneumoniae (PCR) Not Detected (NotDetected) 06/07/22 Parainfluenza Type 1 (PCR) Not Detected (NotDetected) 05/19 05/09 Parainfluenza Type 2 (PCR) Not Detected (NotDetected) 05/19 05/09 Parainfluenza Type 3 (PCR) Not Detected (NotDetected) 05/19 05/09 Parainfluenza Type 4 (PCR) Not Detected (NotDetected) 05/19 05/09 RSV (PCR) Not Detected (NotDetected) 06/07/22 Enterovirus/Rhinovirus (PCR) Not Detected (NotDetected) Chest CT 06/07/22 Chest X-Ray 06/07/22 Code Status & VTE Plan Code Status DNR/DNI VTE Prophylaxis Plan VTE Prophylaxis will be ordered: Yes Supervising Physician Co-Signing Physician Notes Pt is a 82 y/o M with hx of CAD s/p CABG, Afib on eliquis, CKD III, HTN, Prediabetes, hypothyroidism, BPH, hx of esophageal cancer s/p surgery admitted for atypical pneumonia with fatigue PE: NAD, well developed Lungs: good air entry b/l with lower lobe rales with diffuse wheezing Cardiac: in Afib, no murmur Abd: ND, NT, soft MSK: no LE edema Psych: AAOx3, normal affect A/P: Pneumonia with HMPV infection & Fatigue: -due to wheezing will do levoalbuterol q6hr with prednisone burst (40mg daily) --- will get procal prior to continuing abx -PT/OT eval -incentive jey with mucinex BID -Trop is slightly elevated but pt does not have any CP --- likely demand ischemia however will trend trop - admit to tele Elevated Cr with CKD III: -baseline Cr is 1.3 -pt appeared dehydrated -pt received IVF in the ER -will monitor BMP Other chronic conditions: Plan as above Agree with A/p by Irma Seaman PA-C (1) Pneumonia Laterality: bilateral Lung location: unspecified part of lung Pneumonia type: due to unspecified organism Qualified Code(s): J18.9 - Pneumonia, unspecified organism
[2022-06-07] MEDS ORDERED: AZITHROMYCIN 500 MG in DEXTROSE 5% 250 ML IV SCH (17:30)
[2022-06-07] MEDS ORDERED: DEXTROSE 50% 50 ML SYRINGE IV PRN (18:34)
[2022-06-07] MEDS ORDERED: POLYETHYLENE (MIRALAX) 17 GM PACK PO PRN (18:34)
[2022-06-07] MEDS ORDERED: GLUCOSE 10 TAB/TUBE PO PRN (18:34)
[2022-06-07] MEDS ORDERED: BENZONATATE 100 MG CAPSULE PO PRN (18:34)
[2022-06-07] MEDS ORDERED: ACETAMINOPHEN 325 MG TAB PO PRN (18:34)
[2022-06-07] MEDS ORDERED: GLUCOSE 40% GEL 15 GM TUBE PO PRN (18:34)
[2022-06-07] MEDS ORDERED: ONDANSETRON INJ 2 MG/ML 2 ML VIAL IV PRN (18:34)
[2022-06-07] MEDS ORDERED: GLUCAGON FOR INJ 1 MG VIAL SQ PRN (18:34)
[2022-06-07] MEDS ORDERED: CARBOHYDRATES FOR HYPOGLYCEMIA PO PRN (18:34)
[2022-06-07] MEDS ORDERED: PNEUMOCOCCAL POLYSACCHARIDES 25 MCG/0.5 ML VIAL/SYR IM ONE (19:01)
[2022-06-07] MEDS: LEVALBUTEROL HCL 0.63 MG/3 ML NEB NEB SCH (19:41)
[2022-06-07] MEDS: predniSONE 20 MG TAB PO SCH (20:06)
[2022-06-07] MEDS: allopurinoL 100 MG TAB PO SCH (20:07)
[2022-06-07] MEDS: ASCORBIC ACID 500 MG TAB PO SCH (20:07)
[2022-06-07] MEDS: ASPIRIN 81 MG ECTAB PO SCH (20:08)
[2022-06-07] MEDS: carvediloL 12.5 MG TAB PO SCH (20:09)
[2022-06-07] MEDS: APIXABAN 2.5 MG TAB PO SCH (20:29)
[2022-06-08] MEDS: LEVOTHYROXINE SODIUM 150 MCG TABLET PO SCH (06:03)
[2022-06-08] MEDS: LEVALBUTEROL HCL 0.63 MG/3 ML NEB NEB SCH ×4 (07:12→19:29)
[2022-06-08] MEDS: predniSONE 20 MG TAB PO SCH (08:03)
[2022-06-08] MEDS: MULTIVITAMIN TAB PO SCH (08:03)
[2022-06-08] MEDS: amLODIPine BESYLATE 5 MG TAB PO SCH (08:03)
[2022-06-08] MEDS: carvediloL 25 MG TAB PO SCH (08:03)
[2022-06-08] MEDS: ASCORBIC ACID 500 MG TAB PO SCH ×2 (08:03→22:00)
[2022-06-08] MEDS: ATORVASTATIN 20 MG TAB PO SCH (08:04)
[2022-06-08] MEDS: APIXABAN 2.5 MG TAB PO SCH ×2 (08:04→21:57)
[2022-06-08] MEDS: ADVANCED PROBIOTIC 1250 MG CAPSULE PO SCH (08:04)
[2022-06-08] MEDS: allopurinoL 100 MG TAB PO SCH ×2 (08:04→21:59)
[2022-06-08] MEDS: CHOLESTYRAMINE LIGHT 4 GM PKT PO SCH (08:04)
[2022-06-08] MEDS: PANTOprazole 40 MG TAB PO SCH (08:04)
[2022-06-08 08:40] LABS: Hematocrit (blood only) 46.2 % (42.0-52.0); Hemoglobin 16.2 g/dl (14.0-18.0); Mean Corpuscular Hemoglobin 34.1 pg (25.0-34.0); Mean Corpuscular Hgb Conc 35.1 g/dL (32.0-36.0); Mean Corpuscular Volume 97.3 fL (80.0-100.0); Mean Platelet Volume 12.3 fL (9.4-12.4); Platelet Count 161 K/uL (130-400); RDW Coefficient of Variation 12.5 % (11.5-14.5); RDW Standard Deviation 45.1 fL (36.4-46.3); Red Blood Count 4.75 M/uL (4.70-6.10); White Blood Count 3.94 K/ul (4.8-10.8)
[2022-06-08] MEDS ORDERED: TOCOPHERYL, DL-ALPHA 400 UNITS 180 MG CAP PO SCH (09:00)
[2022-06-08] MEDS ORDERED: NON-FORMULARY MEDICATION (Coenzyme Q10 [Coq-10] 100 mg Capsule) PO SCH (09:00)
[2022-06-08 09:08] LABS: BUN Creatinine Ratio 24.5 (10-20); Calcium 9.6 mg/dl (8.5-10.1); Creatinine Clr Calc Pharmacy 40.9 ml/min; Est GFR (African American) 49.5 ml/min; Est GFR (Non-African American) 42.7 ml/min; Potassium 4.3 mmol/L (3.5-5.1)
[2022-06-08 12:47] LABS: Estimated Average Glucose 131 mg/dl; Hemoglobin A1C 6.2 % (4.5-5.6)
--- NOTE | 2022-06-08 16:52 | Hospitalist Progress Note ---
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 Bilateral lower lobe pneumonia +Human metapneumovirus PCR Weakness admit to telemetry obtain procalcitonin CXR/CT consistent with PNA, possibly viral vs bacteria received rocephin in ED and started on oral doxy yesterday if procal + will continue antibiotics pulmonary toilet with xopenex prn, incentive spirometry, flutter valve o2 as needed, currently not requiring supplemental oxygen tessalon perles as needed 06/08 Improving Continue prednisone 40 mg daily Continue Xopenex every 6 hours Add doxycycline 100 mg twice daily, Mucinex 600 mg twice daily Add incentive spirometry and flutter valve PT and OT evaluation CKD-3 pt with mild elevated in cr, cr 1.6 today baseline 1.3-1.5 likely dehydrated, no signs of overload received 500ml in ED, encourage oral intake follow labs 06/08 Creatinine improved to 1.5 PAF pt in afib, rates improved after 500ml IVF bolus continue coreg, eliquis likely exacerbated in setting of pulmonary illness monitor on tele 06/08 Stable Generalized weakness 2/2 above PT/OT CAD w/ hx of CABG HTN Elevated troponin Elevated BNP - clinically pt does not appear to be in heart failure continue coreg, amlodipine, asa and statin pt denies CP, likely in setting of acute illness 06/08 Troponin trending down 27, 21, 19 Hx of esophageal Ca s/p esophagectomy continue PPI Pre Diabetes a1c 6.1 02/2022 obtain a1c obtain accuchecks, no insulin coverage may have some hyperglycemia in setting of steroid, if so can add novolog coverage 06/08 A1c 6.2 DVT ppx: Jaquelinroma DNR/DNI PCP: Harleen Dispo: tele, PT/OT consulted Lives at home with his plan of care discussed with patient in detail and at length all questions answered he is understanding, agreeable, comfortable with the plan of care Admission and Anticipated Discharge Date Admission Date: June 07, 2022 Subjective Follow-up for bilateral lower lobe pneumonia, weakness, etc. Seen sitting up in bedside chair, comfortable, not in distress, in good spirits Very pleasant States he feels improved today compared to yesterday Less cough, no shortness of breath, no chest pain, no fevers or chills Appetite is good No other symptoms Review of Systems Review of Systems: all noted and negative except for above Physical Exam Physical Exam: General- oriented x 3, not in distress, speaks in sentences with no effort or accessory muscle use Eyes- anicteric Neck- no JVD Lungs-positive mild crackles at the bases, no wheezing, good air entry bilater ally Heart- normal rate, regular rhythm; no murmurs Abdomen- normal bowel sounds, nondistended, soft, nontender Extremities- no pretibial edema, no calf tenderness Neuro- alert, oriented x 3; no gross focal neurologic deficits Skin- warm & dry Results & Data Results & Data ([facility]) Vital Signs (Past 12 Hours) Vital Signs Temp Pulse Pulse Resp BP Pulse Ox O2 Del Method 06/08/22 15:21 36.9 C 92 H 18 117/66 95 Room Air 06/08/22 14:52 97 H 18 93 Room Air 06/08/22 11:52 36.9 C 77 18 105/58 L 94 Nebulizer 06/08/22 11:27 90 20 93 Room Air 06/08/22 09:17 Room Air 06/08/22 07:57 36.8 C 103 H 20 145/74 H 94 Room Air 06/08/22 07:37 90 06/08/22 07:13 94 H 18 92 Room Air all noted and reviewed including below (1) Pneumonia Laterality: bilateral Lung location: unspecified part of lung Pneumonia type: due to unspecified organism Qualified Code(s): J18.9 - Pneumonia, unspecified organism
[2022-06-08] MEDS ORDERED: cefTRIAXone SODIUM 2,000 MG in DEXTROSE 5% 50 ML IV SCH ×2 (17:30→18:00)
[2022-06-08] MEDS: guaiFENesin 600 MG TABCR PO SCH (21:56)
[2022-06-08] MEDS: DOXYCYCLINE HYCLATE 100 MG CAP PO SCH (21:57)
[2022-06-08] MEDS: ASPIRIN 81 MG ECTAB PO SCH (21:59)
[2022-06-08] MEDS: carvediloL 12.5 MG TAB PO SCH (21:59)
[2022-06-09] MEDS: LEVOTHYROXINE SODIUM 150 MCG TABLET PO SCH (06:25)
[2022-06-09] MEDS: LEVALBUTEROL HCL 0.63 MG/3 ML NEB NEB SCH ×4 (07:27→19:08)
[2022-06-09 08:01] LABS: Hematocrit (blood only) 45.4 % (42.0-52.0); Hemoglobin 16.1 g/dl (14.0-18.0); Mean Corpuscular Hemoglobin 33.8 pg (25.0-34.0); Mean Corpuscular Hgb Conc 35.5 g/dL (32.0-36.0); Mean Corpuscular Volume 95.4 fL (80.0-100.0); Mean Platelet Volume 12.3 fL (9.4-12.4); Platelet Count 183 K/uL (130-400); RDW Coefficient of Variation 12.3 % (11.5-14.5); RDW Standard Deviation 43.8 fL (36.4-46.3); Red Blood Count 4.76 M/uL (4.70-6.10); White Blood Count 10.52 K/ul (4.8-10.8)
[2022-06-09] MEDS: ASCORBIC ACID 500 MG TAB PO SCH ×2 (08:23→20:45)
[2022-06-09] MEDS: allopurinoL 100 MG TAB PO SCH ×2 (08:23→20:46)
[2022-06-09] MEDS: CHOLESTYRAMINE LIGHT 4 GM PKT PO SCH (08:23)
[2022-06-09] MEDS: amLODIPine BESYLATE 5 MG TAB PO SCH (08:24)
[2022-06-09] MEDS: PANTOprazole 40 MG TAB PO SCH (08:24)
[2022-06-09] MEDS: MULTIVITAMIN TAB PO SCH (08:24)
[2022-06-09] MEDS: DOXYCYCLINE HYCLATE 100 MG CAP PO SCH ×2 (08:24→20:45)
[2022-06-09] MEDS: carvediloL 25 MG TAB PO SCH (08:24)
[2022-06-09] MEDS: predniSONE 20 MG TAB PO SCH (08:24)
[2022-06-09] MEDS: ADVANCED PROBIOTIC 1250 MG CAPSULE PO SCH (08:24)
[2022-06-09] MEDS: APIXABAN 2.5 MG TAB PO SCH ×2 (08:24→20:46)
[2022-06-09] MEDS: guaiFENesin 600 MG TABCR PO SCH ×2 (08:24→20:46)
[2022-06-09 08:25] LABS: BUN Creatinine Ratio 28.3 (10-20); Calcium 9.6 mg/dl (8.5-10.1); Creatinine Clr Calc Pharmacy 38.8 ml/min; Est GFR (African American) 46.5 ml/min; Est GFR (Non-African American) 40.1 ml/min; Potassium 4.1 mmol/L (3.5-5.1)
[2022-06-09] MEDS: ATORVASTATIN 20 MG TAB PO SCH (08:25)
[2022-06-09] MEDS ORDERED: CHOLECALCIFEROL 5,000 UNITS 125 MCG TAB PO SCH (09:00)
--- NOTE | 2022-06-09 14:26 | Hospitalist Progress Note ---
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 Bilateral lower lobe pneumonia +Human metapneumovirus PCR Weakness admit to telemetry obtain procalcitonin CXR/CT consistent with PNA, possibly viral vs bacteria received rocephin in ED and started on oral doxy yesterday if procal + will continue antibiotics pulmonary toilet with xopenex prn, incentive spirometry, flutter valve o2 as needed, currently not requiring supplemental oxygen tessalon perles as needed 06/08 Improving Continue prednisone 40 mg daily Continue Xopenex every 6 hours Add doxycycline 100 mg twice daily, Mucinex 600 mg twice daily Add incentive spirometry and flutter valve PT and OT evaluation 06/09 continues to improve continue with present regimen encouraged to use Incentive spirometry CKD-3 pt with mild elevated in cr, cr 1.6 today baseline 1.3-1.5 likely dehydrated, no signs of overload received 500ml in ED, encourage oral intake follow labs 06/08 Creatinine improved to 1.5 06/09 crea 1/5 PAF pt in afib, rates improved after 500ml IVF bolus continue coreg, eliquis likely exacerbated in setting of pulmonary illness monitor on tele 06/08 Stable Generalized weakness 2/2 above PT/OT CAD w/ hx of CABG HTN Elevated troponin Elevated BNP - clinically pt does not appear to be in heart failure continue coreg, amlodipine, asa and statin pt denies CP, likely in setting of acute illness 06/09 Troponin trended down 27, 21, 19 Hx of esophageal Ca s/p esophagectomy continue PPI Pre Diabetes a1c 6.1 02/2022 obtain a1c obtain accuchecks, no insulin coverage may have some hyperglycemia in setting of steroid, if so can add novolog coverage 06/09 A1c 6.2 DVT ppx: Nicole DNR/DNI PCP: Harleen Dispo: tele, PT/OT consulted Lives at home with his plan of care discussed with patient in detail and at length all questions answered he is understanding, agreeable, comfortable with the plan of care Admission and Anticipated Discharge Date Admission Date: June 07, 2022 Subjective ff up for pneumonia, etc seen resting in chair, comfortable states he continues to feel improved overall notes he is coughing more, no sputum though no chest pain, fever/chills no other symptoms Review of Systems Review of Systems: all noted and negative except for above Physical Exam Physical Exam: General- oriented x 3, not in distress, speaks in sentences with no effort or accessory muscle use Eyes- anicteric Neck- no JVD Lungs- mild rhonchi at the left base no wheezing Heart- normal rate, regular rhythm; no murmurs Abdomen- normal bowel sounds, nondistended, soft, nontender Extremities- no pretibial edema, no calf tenderness Neuro- alert, oriented x 3; no gross focal neurologic deficits Skin- warm & dry Results & Data Results & Data ([facility]) Vital Signs (Past 12 Hours) Vital Signs Temp Pulse Resp BP Pulse Ox O2 Del Method 06/09/22 11:48 36.3 C L 74 18 124/51 L 93 Room Air 06/09/22 11:47 76 18 93 Room Air 06/09/22 07:56 36.4 C L 86 18 143/63 H 94 Room Air 06/09/22 07:27 93 H 18 94 Room Air 06/09/22 02:46 36.5 C 87 18 134/66 91 Room Air all noted and reviewed including below (1) Pneumonia Laterality: bilateral Lung location: unspecified part of lung Pneumonia type: due to unspecified organism Qualified Code(s): J18.9 - Pneumonia, unspecified organism
[2022-06-09] MEDS: ASPIRIN 81 MG ECTAB PO SCH (20:46)
[2022-06-09] MEDS: carvediloL 12.5 MG TAB PO SCH (20:46)
[2022-06-10] MEDS: LEVOTHYROXINE SODIUM 150 MCG TABLET PO SCH (06:10)
[2022-06-10] MEDS: LEVALBUTEROL HCL 0.63 MG/3 ML NEB NEB SCH ×2 (07:27→11:21)
[2022-06-10] MEDS: MULTIVITAMIN TAB PO SCH (07:54)
[2022-06-10] MEDS: PANTOprazole 40 MG TAB PO SCH (07:54)
[2022-06-10] MEDS: amLODIPine BESYLATE 5 MG TAB PO SCH (07:54)
[2022-06-10] MEDS: ADVANCED PROBIOTIC 1250 MG CAPSULE PO SCH (07:54)
[2022-06-10] MEDS: predniSONE 20 MG TAB PO SCH (07:55)
[2022-06-10] MEDS: DOXYCYCLINE HYCLATE 100 MG CAP PO SCH (07:55)
[2022-06-10] MEDS: ATORVASTATIN 20 MG TAB PO SCH (07:55)
[2022-06-10] MEDS: guaiFENesin 600 MG TABCR PO SCH (07:55)
[2022-06-10] MEDS: carvediloL 25 MG TAB PO SCH (07:56)
[2022-06-10] MEDS: APIXABAN 2.5 MG TAB PO SCH (07:56)
[2022-06-10] MEDS: allopurinoL 100 MG TAB PO SCH (07:56)
[2022-06-10] MEDS: ASCORBIC ACID 500 MG TAB PO SCH (07:56)
[2022-06-10] MEDS: CHOLESTYRAMINE LIGHT 4 GM PKT PO SCH (09:23)
--- NOTE | 2022-06-10 18:26 | Hospitalist Progress Note ---
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 Bilateral lower lobe pneumonia +Human metapneumovirus PCR Weakness CT chest: 1. Postoperative changes consistent with a prior esophagectomy with gastric pull-up. 2. Mild mild cardiomegaly. 3. A few scattered patchy groundglass and tree-in-bud nodular opacities seen within the lungs. This is most pronounced within the lower lobes and could be due to an atypical pneumonia/aspiration. Patient remained on room air Given prednisone 40 mg p.o. daily Given Xopenex every 6 hours Doxycycline 100 mg twice a day, Mucinex 600 mg twice daily Incentive spirometry and flutter valve Patient gradually improved Discharge plan: Doxycycline 100 mg twice a day x5 more days Mucinex 600mg BID Albuterol inhaler as needed Follow-up with PCP in 1 week CKD-3 pt with mild elevated in cr, cr 1.6 today baseline 1.3-1.5 likely dehydrated, no signs of overload 06/10 Stable at 1.5 PAF pt in afib, rates improved after 500ml IVF bolus continue coreg, eliquis likely exacerbated in setting of pulmonary illness 06/10 Stable Generalized weakness 2/2 above PT/OT CAD w/ hx of CABG HTN Elevated troponin Elevated BNP - clinically pt does not appear to be in heart failure continue coreg, amlodipine, asa and statin pt denies CP, likely in setting of acute illness 06/10 Troponin trended down 27, 21, 19 Hx of esophageal Ca s/p esophagectomy continue PPI Pre Diabetes a1c 6.1 02/2022 obtain a1c obtain accuchecks, no insulin coverage may have some hyperglycemia in setting of steroid, if so can add novolog coverage 06/10 A1c 6.2 DVT ppx: Nicole DNR/DNI PCP: Harleen Dispo: Discharge to home Follow-up with Dr. Canseco in 1 week Admission and Anticipated Discharge Date Admission Date: June 07, 2022 Subjective Follow-up for bilateral lower lobe pneumonia, etc. Seen sitting up in bedside chair, comfortable, in good spirits States he continues to feel improved overall Less cough, no shortness of breath, no fevers or chills No other symptoms States he is ready for discharge today Review of Systems Review of Systems: all noted and negative except for above Physical Exam Physical Exam: General- oriented x 3, not in distress, speaks in sentences with no effort or accessory muscle use Eyes- anicteric Neck- no JVD Lungs- Very faint rhonchi bilateral bases, no wheezing, good air entry bilateral, no rales/wheezes Heart- normal rate, regular rhythm; no murmurs Abdomen- normal bowel sounds, nondistended, soft, nontender Extremities- no pretibial edema, no calf tenderness Neuro- alert, oriented x 3; no gross focal neurologic deficits Skin- warm & dry Results & Data Results & Data ([facility]) Vital Signs (Past 12 Hours) Vital Signs Temp Pulse Pulse Pulse Pulse Pulse Resp 06/10/22 12:00 36.6 C 70 16 06/10/22 11:22 87 82 86 06/10/22 11:24 85 16 06/10/22 10:43 36.6 C 91 H 16 06/10/22 10:40 06/10/22 09:55 77 06/10/22 08:00 36.6 C 91 H 16 06/10/22 07:29 79 16 Resp Resp Resp BP BP Pulse Ox Pulse Ox 06/10/22 12:00 118/58 L 94 06/10/22 11:22 19 18 18 96 06/10/22 11:24 95 06/10/22 10:43 131/56 L 149/76 H 95 06/10/22 10:40 06/10/22 09:55 06/10/22 08:00 149/76 H 95 06/10/22 07:29 95 Pulse Ox Pulse Ox O2 Del Method 06/10/22 12:00 Room Air 06/10/22 11:22 96 93 06/10/22 11:24 Room Air 06/10/22 10:43 06/10/22 10:40 Room Air 06/10/22 09:55 06/10/22 08:00 Room Air 06/10/22 07:29 Room Air all noted and reviewed including below (1) Pneumonia Laterality: bilateral Lung location: unspecified part of lung Pneumonia type: due to unspecified organism Qualified Code(s): J18.9 - Pneumonia, unspecified organism
--- NOTE | 2022-06-10 18:30 | Discharge Summary ---
Discharge Summary Date of Service June 10, 2022 Notes For Next Care Provider Medication Changes From Visit DOXYCYCLINE- for 5 MORE DAYS, ANTIBIOTIC FOR PNEUMONIA, ALREADY PRESCRIBED BY DR. 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 Of significance patient saw PCP Dr. Berman yesterday secondary to cough and decreased appetite. Positive sick contacts with . He was felt to have complicated bronchitis and treated with prednisone, Tessalon Perles and started on doxycycline. Due to symptoms worsening he presented to ER today. Today he had to take the dog to the groomer and he felt much more SOB requiring him to sit down multiple times. So prior to taking dog he ended up laying back down. He had a decrease in energy and appetite. This felt similar to his previous hx of afib. Currently he is hungry and thirsty and feels a bit better than when he presented. Currently he denies f/c/s, dizziness, lightheaded, chest pain, palpitations, sob at rest, n/v/d, abd pain, change in bowel or urinary sx. He just walked into the bathroom and didn't feel SOB. He complains of cough, rhinorrhea and sneezing. The cough is periodic. THe rhinorrhea and sneezing went away. He took all his medications today. He denies prior hx of asthma/copd. Prior hx of smoking but quit 40 yrs ago. He feels he smoked for 20 years. Admission Exam Per Admitting Provider NAD, well developed Lungs: good air entry b/l with lower lobe rales with diffuse wheezing Cardiac: in Afib, no murmur Abd: ND, NT, soft MSK: no LE edema Psych: AAOx3, normal affect Principal Dx & Hospital Course #1 = Principal Diagnosis (1) Pneumonia: (2) CKD (chronic kidney disease), stage III: (3) CAD (coronary artery disease): (4) Atrial fibrillation: (5) Hypertension: Plan Per admitting service notes with addendum: This is an 82-year-old male with significant past medical history of CAD with hx of CABG in 2007 (GIFFORD to LAD, SVG to ramus, SVG to OM, SVG to RCA), PAF on Eliquis, HTN, moderate to severe aortic insufficiency, infrarenal AAA, bilateral 50 to 69% ICA stenosis EMILY, prediabetes, hyperlipidemia, hypothyroidism, BPH, neurogenic bladder, CKD stage III, gout, 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 Bilateral lower lobe pneumonia +Human metapneumovirus PCR Weakness CT chest: 1. Postoperative changes consistent with a prior esophagectomy with gastric pull-up. 2. Mild mild cardiomegaly. 3. A few scattered patchy groundglass and tree-in-bud nodular opacities seen within the lungs. This is most pronounced within the lower lobes and could be due to an atypical pneumonia/aspiration. Patient remained on room air Given prednisone 40 mg p.o. daily Given Xopenex every 6 hours Doxycycline 100 mg twice a day, Mucinex 600 mg twice daily Incentive spirometry and flutter valve Patient gradually improved Discharge plan: Doxycycline 100 mg twice a day x5 more days Mucinex 600mg BID Albuterol inhaler as needed Follow-up with PCP in 1 week CKD-3 pt with mild elevated in cr, cr 1.6 today baseline 1.3-1.5 likely dehydrated, no signs of overload 06/10 Stable at 1.5 PAF pt in afib, rates improved after 500ml IVF bolus continue coreg, eliquis likely exacerbated in setting of pulmonary illness 06/10 Stable Generalized weakness 2/2 above PT/OT CAD w/ hx of CABG HTN Elevated troponin Elevated BNP - clinically pt does not appear to be in heart failure continue coreg, amlodipine, asa and statin pt denies CP, likely in setting of acute illness 06/10 Troponin trended down 27, 21, 19 Hx of esophageal Ca s/p esophagectomy continue PPI Pre Diabetes a1c 6.1 02/2022 obtain a1c obtain accuchecks, no insulin coverage may have some hyperglycemia in setting of steroid, if so can add novolog coverage 06/10 A1c 6.2 DVT ppx: Nicole DNR/DNI PCP: Harleen Dispo: Discharge to home Follow-up with Dr. Berman in 1 week Discharge Exam Constitutional General- oriented x 3, not in distress, speaks in sentences with no effort or accessory muscle use Eyes- anicteric Neck- no JVD Lungs- Very faint rhonchi bilateral bases, no wheezing, good air entry bilateral, no rales/wheezes Heart- normal rate, regular rhythm; no murmurs Abdomen- normal bowel sounds, nondistended, soft, nontender Extremities- no pretibial edema, no calf tenderness Neuro- alert, oriented x 3; no gross focal neurologic deficits Skin- warm & dry Updated Medication List Medication Instructions Recorded Confirmed Type allopurinol 100 mg tablet 100 mg PO BID 07/30/18 06/07/22 History ascorbic acid (vitamin C) 1,000 mg 1,000 mg PO BID 07/30/18 06/07/22 History tablet (Vitamin C) aspirin 81 mg tablet,delayed 81 mg PO HS 07/30/18 06/07/22 History release (Heide Low Dose Aspirin) cholecalciferol (vitamin D3) 125 5,000 unit PO UD 07/30/18 06/07/22 History mcg (5,000 unit) tablet (Vitamin D3) fish, borage, flaxseed oils-omega 1 cap PO BID 07/30/18 06/07/22 History 3,6,9 cb #1 400 mg-400 mg-400 mg cap ([place] 3-6-9 Complex) multivitamin 2 tab PO BID 07/30/18 06/07/22 History omeprazole 40 mg capsule,delayed 40 mg PO QAM 07/30/18 06/07/22 History release vitamin E 268 mg (400 unit) capsule 400 unit PO SUWE@0900 07/30/18 06/07/22 Hi story acetaminophen 500 mg tablet 1,000 mg PO Q6H PRN Pain 09/19/19 06/07/22 History glucosamine sulfate 500 mg tablet 1,000 mg PO QAM 09/19/19 06/07/22 History (Glucosamine) nitroglycerin 0.4 mg sublingual 0.4 mg sublingual Q5M PRN Pain 10/09/19 06/07/22 History tablet apixaban 2.5 mg tablet (Eliquis) 2.5 mg PO BID 03/15/22 06/07/22 History atorvastatin 20 mg tablet 20 mg PO QAM 03/15/22 06/07/22 History amlodipine 2.5 mg tablet 2.5 mg PO QAM 03/16/22 06/07/22 History L.acidop,casei,lactis,rham-B.lact,saurabh 2 cap PO DAILY #20 caps 03/20/22 06/07/22 Rx 625 mg (10 billion cell) capsule (Advanced Probiotic) carvedilol 12.5 mg tablet 12.5 mg PO BID #60 tabs 03/20/22 06/07/22 Rx cholestyramine-aspartame 4 gram 4 g PO QAM 06/03/22 06/07/22 History oral powder (Cholestyramine Light) benzonatate 100 mg capsule 100 mg PO TID PRN Cough 06/07/22 06/07/22 History coenzyme Q10 100 mg capsule 600 mg PO DAILY 06/07/22 06/07/22 History (CoQ-10) cranberry 500 mg capsule 500 mg PO DAILY 06/07/22 06/07/22 History levothyroxine 150 mcg tablet 150 mcg PO DAILY 06/07/22 06/07/22 History prasterone (dhea) 50 mg capsule 50 mg PO DAILY 06/07/22 06/07/22 History (DHEA) albuterol sulfate 90 mcg/actuation 2 inh inhalation Q4H PRN shortness 06/10/22 Rx aerosol inhaler of breath or wheezing #8.5 grams doxycycline hyclate 100 mg capsule 100 mg PO BID 5 days #0 caps 06/10/22 06/07/22 Rx guaifenesin 600 mg tablet, 600 mg PO Q12 5 days #10 tabs 06/10/22 Rx extended release 12 hr (Mucinex) prednisone 20 mg tablet 40 mg PO DAILY 1 day #2 tabs 06/10/22 Rx Hospital Stay Data Consultations 06/07/22 17:03 ED Decision to Admit Stat Diagnostic Imagining Performed 06/07/22 15:53 CT chest diagnostic wo con Stat COMPARISON: Abdomen and pelvis CT 11/28/2020. FINDINGS: Postoperative changes consistent with a prior esophagectomy with gastric pull-up. The heart remains mildly enlarged. No pleural or pericardial effusions. Mild calcified plaque within the normal caliber thoracic aorta. There are few calcified mediastinal and right hilar lymph nodes. No lymphadenopathy identified within the chest. Limited views of the upper abdomen demonstrate a few punctate calcified granulomas within the liver and spleen. Normal adrenal glands. Bilateral nephrolithiasis. Partially calcified left renal lesion measuring approximately 3.7 cm remains stable. There are poststernotomy changes. No acute fractures identified. The central airways are patent. No pneumothorax. A few scattered patchy groundglass and tree-in-bud nodular opacities seen within the lungs. This is most pronounced within the lower lobes and favors an atypical pneumonia. IMPRESSION: 1. Postoperative changes consistent with a prior esophagectomy with gastric pull-up. 2. Mild mild cardiomegaly. 3. A few scattered patchy groundglass and tree-in-bud nodular opacities seen within the lungs. This is most pronounced within the lower lobes and could be due to an atypical pneumonia/aspiration. ACT 112: Negative or not required by law. Pending Results Patient Have Any Pending Studies at Discharge: No Discharge Instructions Given to Patient (Per Discharging Provider) PLEASE REFER TO YOUR NEW MEDICATION LIST AND FOLLOW INSTRUCTIONS CAREFULLY. YOUR NEW MEDICATIONS INCLUDE: DOXYCYCLINE- for 5 MORE DAYS, ANTIBIOTIC FOR PNEUMONIA, ALREADY PRESCRIBED BY DR. BERMAN PREDNISONE - 1 MORE DAY, STEROID MUCINEX- FOR COUGH ALBUTEROL- INHALER, NEEDED FOR SHORTNESS OF BREATH PLEASE CONTINUE TO USE INCENTIVE SPIROMETER AND FLUTTER VALVE FREQUENTLY AT HOME. TAKE A PROBIOTIC/EAT YOGURT DAILY X AT LEAST 2 WEEKS. DRINK PLENTY OF WATER. PLEASE CALL YOUR PRIMARY CARE PHYSICIAN OR RETURN TO THE ER IF WITH WORSENING OF SYMPTOMS, INCLUDING COUGH, SHORTNESS OF BREATH, FEVER/CHILLS, CHEST PAIN, ETC FOLLOW UP WITH PRIMARY CARE PHYSICIAN IN 1 WEEK. TAKE CARE. Total Time Total Time Spent Total Time Spent (In Minutes): > 30 minutes
== END 2022-06-10 13:01 | disposition home or self-care (01) | DRG 195 ==
LOC: ED 12:03 → 2W 17:01 → SUATTDRO 17:01 → 2W 18:24

== ENCOUNTER 2023-03-02 16:17 | Inpatient (IN) ==
--- NOTE | 2023-03-02 17:21 | Emergency Department Note ---
Impression & Plan Generalized weakness, Acute UTI (urinary tract infection) ED Provider Note HISTORY OF PRESENT ILLNESS: Patient is an 83-year-old male presenting with chills and rigors. Patient reports that for the last 3 days he has been having the chills and shakiness at home. He reports his has been taking his temperature and has had low-grade fevers. He reports he feels like he cannot get warm and his home thermometer has been increasing over the last 3 days and he is still very cold. He states that he had open heart surgery for aortic valve replacement 3 weeks ago at [facility]. His admission was from 02/06/2023-02/13/2023. Patient denies any chest pain or shortness of breath. Denies any abdominal pain, nausea or vomiting. Denies any recent sick contact exposures. Denies any bowel or bladder incontinence. Denies any dysuria or hematuria. He states that he feels very weak and rundown and he feels lightheaded and unstable when he stands up. He is on Eliquis daily. ROS: as above PHYSICAL EXAM: Constitutional: Patient appears in no acute distress. HENT: Head: Normocephalic and atraumatic. Eyes: EOMI, PERRL Mouth/Throat: Mucous membranes moist. Neck: Trachea midline. Neck supple. Cardiovascular: RRR, No rubs or gallops. Intact distal pulses. Pulmonary/Chest: No respiratory distress. Breath sounds clear and equal bilaterally. No wheezes or rales. Well-healing sternotomy scar. Abdominal: Abdomen soft, no tenderness, rebound or guarding. Musculoskeletal: No edema, tenderness or deformity noted. Skin: Warm and dry. No rash, erythema, pallor or cyanosis Psychiatric: Appropriate mood and affect for situation. Neurological: Alert and keenly responsive. CN II-XII grossly intact, moving all extremities equally and fully. MDM: - Vitals signs showed borderline tachycardia. - History obtained via patient. Patient presents with chills and rigors. Patient reports for the last 3 days he is having chills and shakiness at home. No measured fevers but patient reports he gets very warm and then feels like he cannot get warm enough. He had open heart surgery for aortic valve replacement 3 weeks ago at [facility]. He denies any abdominal pain, nausea or vomiting. Denies any chest pain or shortness of breath. Denies any recent sick contact exposures. Reports feeling very weak and unable to get up and get around secondary to his weakness - Chronic conditions affecting care: CKD; CAD (S/p CABG; aortic valve replacement; esophageal cancer - Differential diagnoses include, but are not limited to: pneumonia; UTI; viral syndrome; infected valve - Order placed for continuous cardiac monitoring. At this time, monitor showed rate of 70 bpm with normal sinus rhythm, per my interpretation. - External medical records reviewed. EMS run sheet was reviewed. Patient was vitally stable in route. No medications were given prehospital. - EKG reviewed by myself showed normal sinus rhythm. Rate 86 bpm. 454. No acute ischemic changes. - Laboratory workup interpreted by myself showed normal WBC; slight hyponatremia (Na 133); hypomagnesemia (Mg 1.6); normal procalcitonin; normal lactate - Biofire negative - CXR negative for pneumonia, per my interpretation - UA showed evidence of infection. - Blood cultures obtained. - Patient given 2g IV rocephin and 1L NS - Discussion was had with acute care registered nurse about patient's case and need for admission - Hospitalist consulted for admission - Patient admitted to [facility]ist service for further evaluation and management. ASSESSMENT AND PLAN: Diagnosis: Generalized weakness; UTI Plan: Admit Past Med/Surg History Medical History Abdominal aortic ectasia Per aortic duplex 10/10/19= There is evidence of a 3.5 cm x 3.5 cm abdominal aortic aneurysm. Color Doppler imaging demonstrates flow consistent with a patent lumen at and distal to the aortic aneurysm. Aortic insufficiency severe per cardio records Atrial fibrillation 06/03/22- pt currently on Eliquis Patient was previously anticoagulated with Eliquis. This was since discontinued by cardiology 04/2019 d/t no a. fib noted on Holter monitor/no known recurrence. Patient on ASA and beta viv. BPH (benign prostatic hyperplasia) CAD (coronary artery disease) s/p CABG x4 (2007) Repeat cath in 2010 showed occlusion of the vein graft to obtuse marginal per cardio records Carotid artery disease Bilateral ICAs 50-69% per 08/2019 carotid duplex CKD (chronic kidney disease), stage III Esophageal cancer Around 2006 or 2008- s/p esophagectomy- no chemo or XRT GERD (gastroesophageal reflux disease) Well controlled and stable Gout Hearing deficit Hx of myocardial infarction 2007 Hyperlipidemia Hypertension Hypothyroidism Sleep apnea can no longer tolerate device Surgical History History of appendectomy History of cardiac cath X 1 SINCE 2007-NO STENTS PLACED-F/U DR JOSE LUIS BENITEZ last visit 03/2022 History of colonoscopy History of esophagogastroduodenoscopy (EGD) History of left cataract extraction 10/22/2019 History of right cataract surgery 10/08/2019. 2mg versed. Hx of esophagectomy d/t esophageal cancer (~2006) Hx of heart bypass surgery 4 vessels - 2008- done in [place], [place] Hx of transurethral resection of prostate x3 Family History Father Family history of diabetes mellitus Other No family history of adverse response to anesthesia Social History Smoking Status: Former smoker Cigarettes Per Day: QUIT ~40 YRS AGO; Second Hand Exposure: Yes (as child); Do You Dip or Chew Tobacco: No; Hx Alcohol Use: Yes Alcohol type: beer Hx Substance Use: No Preferred Language: Urdu Communication Ability: Effective English As A Second Language Teacher Required: No Beliefs That Will Affect Care: None Current Living Situation: Spouse Current Living Situation Comment: house Feels Safe at Home: Yes Assistive Devices: Denture - Lower, Glasses and Hearing Aid - Bilateral Allergies Allergies Allergy/AdvReac Type Severity Reaction Status Date / Time ragweed pollen Allergy Intermediate Sneezing Verified 03/02/23 18:46 animal dander Allergy Mild itchy Verified 03/02/23 18:46 house dust Allergy Mild Sneezing Verified 03/02/23 18:46 morphine Allergy Mild ITCHING, Verified 03/02/23 18:46 severe N/V pollen extracts Allergy Mild Sneezing Verified 03/02/23 18:46 losartan AdvReac hyperkalemi Verified 03/02/23 18:46 a Home Meds Home Medications Medication Instructions Recorded Confirmed allopurinol 100 mg tablet 100 mg PO BID 07/30/18 03/02/23 ascorbic acid (vitamin C) 1,000 mg 1,000 mg PO BID 07/30/18 03/02/23 tablet (Vitamin C) aspirin 81 mg tablet,delayed 81 mg PO HS 07/30/18 03/02/23 release (Heide Low Dose Aspirin) fish, borage, flaxseed oils-omega 1 cap PO BID 07/30/18 03/02/23 3,6,9 cb #1 400 mg-400 mg-400 mg cap (Paris 3-6-9 Complex) multivitamin 2 tab PO BID 07/30/18 03/02/23 omeprazole 40 mg capsule,delayed 40 mg PO QAM 07/30/18 03/02/23 release vitamin E 268 mg (400 unit) capsule 400 unit PO UD 07/30/18 03/02/23 acetaminophen 500 mg tablet 1,000 mg PO Q6H PRN Pain 09/19/19 03/02/23 glucosamine sulfate 500 mg tablet 500 mg PO BID 09/19/19 03/02/23 (Glucosamine) nitroglycerin 0.4 mg sublingual 0.4 mg sublingual Q5M PRN Pain 10/09/19 03/02/23 tablet atorvastatin 20 mg tablet 20 mg PO QAM 03/15/22 03/02/23 cholestyramine-aspartame 4 gram 4 g PO QAM 06/03/22 03/02/23 oral powder (Cholestyramine Light) coenzyme Q10 100 mg capsule 600 mg PO BID 06/07/22 03/02/23 (CoQ-10) cranberry 500 mg capsule 500 mg PO QAM 06/07/22 03/02/23 levothyroxine 150 mcg tablet 150 mcg PO QAM 06/07/22 03/02/23 prasterone (dhea) 50 mg capsule 50 mg PO QAM 06/07/22 03/02/23 (DHEA) cholecalciferol (vitamin D3) 25 25 mcg PO BID 10/26/22 03/02/23 mcg (1,000 unit) tablet (Vitamin D3) amiodarone 200 mg tablet 200 mg PO QAM 03/02/23 03/02/23 apixaban 2.5 mg tablet (Eliquis) 2.5 mg PO BID 03/02/23 03/02/23 nitrofurantoin macrocrystal 50 mg 50 mg PO DAILY 03/02/23 03/02/23 capsule Previous Rx's Medication Instructions Recorded carvedilol 12.5 mg tablet 12.5 mg PO BID #60 tabs 03/20/22 Results & Data (ED) Vital Signs Vital Signs - 24 hr 03/02/23 16:09 03/02/23 16:44 03/02/23 16:46 Temperature 37.1 C Temperature Source Oral Pulse Rate 89 93 H Pulse Rate [Apical] Pulse Rate from SpO2 Sensor 93 H Respiratory Rate 19 14 Respiratory Depth Normal Blood Pressure 136/72 Blood Pressure [Left Arm] Blood Pressure Mean 93 Blood Pressure Mean [Left Arm] Pulse Oximetry 96 90 94 Oxygen Delivery Method Room Air Room Air Sepsis Recent Fever Within 48 Hours No Sepsis New/Unexplained Change in Mental Status No Sepsis Action Taken by Nursing No Action Required 03/02/23 16:47 03/02/23 17:00 03/02/23 17:30 Temperature Temperature Source Pulse Rate 94 H 93 H 90 Pulse Rate [Apical] Pulse Rate from SpO2 Sensor 93 H 90 Respiratory Rate 26 H 19 Respiratory Depth Blood Pressure Blood Pressure [Left Arm] Blood Pressure Mean Blood Pressure Mean [Left Arm] Pulse Oximetry 95 95 Oxygen Delivery Method Sepsis Recent Fever Within 48 Hours Sepsis New/Unexplained Change in Mental Status Sepsis Action Taken by Nursing 03/02/23 18:00 03/02/23 18:28 03/02/23 18:30 Temperature Temperature Source Pulse Rate 79 Pulse Rate [Apical] 66 Pulse Rate from SpO2 Sensor 72 Respiratory Rate 17 18 Respiratory Depth Blood Pressure 118/61 Blood Pressure [Left Arm] 118/61 Blood Pressure Mean 71 Blood Pressure Mean [Left Arm] 80 Pulse Oximetry 96 93 Oxygen Delivery Method Sepsis Recent Fever Within 48 Hours Sepsis New/Unexplained Change in Mental Status Sepsis Action Taken by Nursing 03/02/23 18:30 03/02/23 18:45 03/02/23 18:45 Temperature Temperature Source Pulse Rate 65 66 Pulse Rate [Apical] Pulse Rate from SpO2 Sensor 65 Respiratory Rate 21 15 Respiratory Depth Blood Pressure 99/64 L Blood Pressure [Left Arm] Blood Pressure Mean 68 Blood Pressure Mean [Left Arm] Pulse Oximetry 95 Oxygen Delivery Method Sepsis Recent Fever Within 48 Hours Sepsis New/Unexplained Change in Mental Status Sepsis Action Taken by Nursing 03/02/23 19:00 03/02/23 19:00 03/02/23 19:15 Temperature Temperature Source Pulse Rate 67 65 Pulse Rate [Apical] Pulse Rate from SpO2 Sensor Respiratory Rate 22 22 Respiratory Depth Blood Pressure 112/62 Blood Pressure [Left Arm] Blood Pressure Mean 67 Blood Pressure Mean [Left Arm] Pulse Oximetry Oxygen Delivery Method Sepsis Recent Fever Within 48 Hours Sepsis New/Unexplained Change in Mental Status Sepsis Action Taken by Nursing 03/02/23 19:15 03/02/23 19:30 03/02/23 19:30 Temperature Temperature Source Pulse Rate 63 Pulse Rate [Apical] Pulse Rate from SpO2 Sensor 63 Respiratory Rate 24 Respiratory Depth Blood Pressure 116/64 115/61 Blood Pressure [Left Arm] Blood Pressure Mean 76 68 Blood Pressure Mean [Left Arm] Pulse Oximetry 94 Oxygen Delivery Method Sepsis Recent Fever Within 48 Hours Sepsis New/Unexplained Change in Mental Status Sepsis Action Taken by Nursing 03/02/23 19:45 03/02/23 19:45 03/02/23 20:00 Temperature Temperature Source Pulse Rate 65 62 Pulse Rate [Apical] Pulse Rate from SpO2 Sensor 64 62 Respiratory Rate 17 15 Respiratory Depth Blood Pressure 109/60 Blood Pressure [Left Arm] Blood Pressure Mean 68 Blood Pressure Mean [Left Arm] Pulse Oximetry 95 97 Oxygen Delivery Method Sepsis Recent Fever Within 48 Hours Sepsis New/Unexplained Change in Mental Status Sepsis Action Taken by Nursing 03/02/23 20:00 03/02/23 20:15 03/02/23 20:15 Temperature Temperature Source Pulse Rate 61 Pulse Rate [Apical] Pulse Rate from SpO2 Sensor 61 Respiratory Rate 18 Respiratory Depth Blood Pressure 111/73 119/63 Blood Pressure [Left Arm] Blood Pressure Mean 83 85 Blood Pressure Mean [Left Arm] Pulse Oximetry 96 Oxygen Delivery Method Sepsis Recent Fever Within 48 Hours Sepsis New/Unexplained Change in Mental Status Sepsis Action Taken by Nursing 03/02/23 20:30 03/02/23 20:30 03/02/23 20:44 Temperature Temperature Source Pulse Rate 62 62 Pulse Rate [Apical] Pulse Rate from SpO2 Sensor 62 Respiratory Rate 9 L Respiratory Depth Blood Pressure 123/66 Blood Pressure [Left Arm] Blood Pressure Mean 89 Blood Pressure Mean [Left Arm] Pulse Oximetry 96 Oxygen Delivery Method Sepsis Recent Fever Within 48 Hours Sepsis New/Unexplained Change in Mental Status Sepsis Action Taken by Nursing 03/02/23 20:45 03/02/23 20:45 03/02/23 21:00 Temperature Temperature Source Pulse Rate 63 63 Pulse Rate [Apical] Pulse Rate from SpO2 Sensor 63 62 Respiratory Rate 14 17 Respiratory Depth Blood Pressure 118/67 Blood Pressure [Left Arm] Blood Pressure Mean 75 Blood Pressure Mean [Left Arm] Pulse Oximetry 94 97 Oxygen Delivery Method Sepsis Recent Fever Within 48 Hours Sepsis New/Unexplained Change in Mental Status Sepsis Action Taken by Nursing 03/02/23 21:00 03/02/23 21:15 03/02/23 21:15 Temperature Temperature Source Pulse Rate 67 Pulse Rate [Apical] Pulse Rate from SpO2 Sensor 65 Respiratory Rate 20 Respiratory Depth Blood Pressure 112/57 L 105/60 Blood Pressure [Left Arm] Blood Pressure Mean 62 80 Blood Pressure Mean [Left Arm] Pulse Oximetry 96 Oxygen Delivery Method Sepsis Recent Fever Within 48 Hours Sepsis New/Unexplained Change in Mental Status Sepsis Action Taken by Nursing 03/02/23 21:30 03/02/23 21:30 03/02/23 21:45 Temperature Temperature Source Pulse Rate 67 68 Pulse Rate [Apical] Pulse Rate from SpO2 Sensor 66 67 Respiratory Rate 18 23 Respiratory Depth Blood Pressure 112/62 Blood Pressure [Left Arm] Blood Pressure Mean 77 Blood Pressure Mean [Left Arm] Pulse Oximetry 94 94 Oxygen Delivery Method Sepsis Recent Fever Within 48 Hours Sepsis New/Unexplained Change in Mental Status Sepsis Action Taken by Nursing 03/02/23 21:45 03/02/23 21:45 03/02/23 22:00 Temperature Temperature Source Pulse Rate 68 Pulse Rate [Apical] Pulse Rate from SpO2 Sensor 67 Respiratory Rate 18 Respiratory Depth Blood Pressure 95/63 L 95/63 L Blood Pressure [Left Arm] Blood Pressure Mean 67 67 Blood Pressure Mean [Left Arm] Pulse Oximetry 95 Oxygen Delivery Method Sepsis Recent Fever Within 48 Hours Sepsis New/Unexplained Change in Mental Status Sepsis Action Taken by Nursing 03/02/23 22:00 03/02/23 22:00 Temperature Temperature Source Pulse Rate Pulse Rate [Apical] Pulse Rate from SpO2 Sensor Respiratory Rate Respiratory Depth Blood Pressure 95/70 L 95/70 L Blood Pressure [Left Arm] Blood Pressure Mean 80 80 Blood Pressure Mean [Left Arm] Pulse Oximetry Oxygen Delivery Method Sepsis Recent Fever Within 48 Hours Sepsis New/Unexplained Change in Mental Status Sepsis Action Taken by Nursing Laboratory Data 03/02/23 18:05 03/02/23 18:05 Lab Results 03/02/23 03/02/23 03/02/23 Range/Units 18:05 18:20 19:25 WBC 5.26 (4.8-10.8) K/ul RBC 3.23 L (4.70-6.10) M/uL Hgb 11.0 L (14.0-18.0) g/dl Hct 32.7 L (42.0-52.0) % MCV 101.2 H (80.0-100.0) fL MCH 34.1 H (25.0-34.0) pg MCHC 33.6 (32.0-36.0) g/dL RDW Std Deviation 51.4 H (36.4-46.3) fL RDW Coeff of Daniela 13.8 (11.5-14.5) % Plt Count 204 (130-400) K/uL MPV 11.6 (9.4-12.4) fL Immature Gran % (Auto) 0.4 % Neut % (Auto) 77.0 % Lymph % (Auto) 12.4 % Perkins % (Auto) 7.8 % Eos % (Auto) 1.1 % Baso % (Auto) 1.3 % Neut # (Auto) 4.05 (1.40-6.50) K/uL Lymph # (Auto) 0.65 L (1.20-3.40) K/uL Perkins # (Auto) 0.41 (0.11-0.59) K/uL Eos # (Auto) 0.06 (0.00-0.50) K/uL Baso # (Auto) 0.07 (0.00-0.20) K/uL Immature Gran # (Auto) 0.02 (0.01-0.20) K/uL Sodium 133 L (136-145) mmol/L Potassium 4.0 (3.5-5.1) mmol/L Chloride 99 (98-107) mmol/L Carbon Dioxide 28 (21-32) mmol/L Anion Gap 6 (3-11) BUN 19 (6-23) mg/dl Creatinine 1.38 (0.6-1.4) mg/dl Est Cr Clr Drug Dosing 44.0 ml/min Est GFR ( Amer) 54.8 ml/min Est GFR (Non-Af Amer) 47.3 ml/min BUN/Creatinine Ratio 13.8 (10-20) Glucose 105 H (70-99(Fasting)) mg/dl Lactate 1.3 (0.4-2.0) mmol/L Calcium 9.2 (8.6-10.3) mg/dl Magnesium 1.6 L (1.7-2.4) mg/dl Total Bilirubin 0.8 (0.2-1.0) mg/dl AST 20 (13-39) U/L ALT 8 (7-52) U/L Alkaline Phosphatase 63 (34-104) U/L Total Protein 6.5 (6.0-8.3) gm/dl Albumin 3.4 (3.4-5.0) gm/dl Globulin 3.1 (2.5-4.0) gm/dl Albumin/Globulin Ratio 1.1 (0.9-2) Procalcitonin 0.07 (0-0.5) ng/ml Urine Color Yellow Urine Appearance Cloudy A (Clear) Urine pH 7.5 (4.5-7.5) Ur Specific [place] 1.011 (1.000-1.030) Urine Protein 2+ H (Negative) Urine Glucose (UA) Negative (Negative) Urine Ketones Negative (Negative) Urine Blood 2+ H (Negative) Urine Nitrite Negative (Negative) Urine Bilirubin Negative (Negative) Urine Urobilinogen Negative (Negative) Ur Leukocyte Esterase 1+ H (Negative) Urine WBC (Auto) >30 H (0-5) /hpf Urine RBC (Auto) 10-30 H (0-4) /hpf U Hyaline Cast (Auto) 0 (0-5) /lpf U Epithel Cells (Auto) 0-5 (0-5) /lpf Urine Bacteria (Auto) 1+ H (Negative) Adenovirus (PCR) Not Detected (NotDetected) B. pertussis DNA (PCR) Not Detected (NotDetected) B.parapertussis DNA PCR Not Detected (NotDetected) C. pneumoniae DNA (PCR) Not Detected (NotDetected) Coronavirus OC43 (PCR) Not Detected (NotDetected) Coronavirus HKU1 (PCR) Not Detected (NotDetected) Coronavirus 229E (PCR) Not Detected (NotDetected) SARS-CoV-2 (PCR) Not Detected (NotDetected) Coronavirus NL63 (PCR) Not Detected (NotDetected) Human Metapneumovir PCR Not Detected (NotDetected) Influenza Type A (PCR) Not Detected (NotDetected) Influenza Type B (PCR) Not Detected (NotDetected) M. pneumoniae (PCR) Not Detected (NotDetected) Parainfluenza 1 (PCR) Not Detected (NotDetected) Parainfluenza 2 (PCR) Not Detected (NotDetected) Parainfluenza 3 (PCR) Not Detected (NotDetected) Parainfluenza 4 (PCR) Not Detected (NotDetected) RSV (PCR) Not Detected (NotDetected) Entero/Rhino (PCR) Not Detected (NotDetected) Administered Medications Discontinued Medications Ceftriaxone Sodium (Rocephin) 2,000 mg in 50 mls @ 100 mls/hr IV NOW STA Stop: 03/02/23 21:21 Last Infusion: 03/02/23 21:46 Dose: Infused Documented By: [facility] Admin: 03/02/23 21:06 Dose: 100 mls/hr Documented By: [facility] Imaging Data Radiologist's Impression: Chest X-Ray 03/02/23 16:46 XR chest 1V portable HISTORY: weakness COMPARISON: Chest CT 06/07/2022. FINDINGS: No pneumothorax. No pleural effusions. The cardiac silhouette is top normal in size. This remains unchanged. There are poststernotomy changes and a cardiac valve prosthesis again noted. Retrocardiac density likely corresponds the patient's known gastric pull-up. No new focal lung consolidations to suggest a pneumonia. No evidence for pulmonary edema. Degenerative changes within the shoulders. IMPRESSION: No acute process. Additional findings as described above. ACT 112: Negative or not required by law. Electronically signed by: Gian Carvalho M.D. 03/02/2023 5:45 PM Discharge Plan Visit Data Chief Complaint: Weakness ED Provider: Maria Elena Calloway Discharge Problem: Generalized weakness, Acute UTI (urinary tract infection) Forms Stand Alone Forms: [facility] Prescriptions Prescriptions: No Action nitroglycerin 0.4 mg tablet, sublingual 0.4 mg SL Q5M PRN (Reason: Pain) multivitamin Tablet 2 tab PO BID ascorbic acid (vitamin C) [Vitamin C] 1,000 mg Tablet 1,000 mg PO BID allopurinol 100 mg Tablet 100 mg PO BID omeprazole 40 mg Capsule,Delayed Release(Dr/Ec) 40 mg PO QAM aspirin [Heide Low Dose Aspirin] 81 mg Tablet,Delayed Release (Dr/Ec) 81 mg PO HS vitamin E 400 unit Capsule 400 unit PO UD Rx Instructions: monday and wednesday only, once daily fish,bora,flax oils-[id number],[id number] [Paris 3-6-9 Complex] 400-400-400 mg Capsule 1 cap PO BID glucosamine sulfate [Glucosamine] 500 mg Tablet 500 mg PO BID acetaminophen 500 mg Tablet 1,000 mg PO Q6H PRN (Reason: Pain) Cholestyramine Light 4 gram Powder 4 g PO QAM Rx Instructions: administer w/meal; avoid other meds within 1hr before or 4-6hr after dose DHEA 50 mg Capsule 50 mg PO QAM levothyroxine 150 mcg tablet 150 mcg PO QAM coenzyme Q10 [CoQ-10] 100 mg Capsule 600 mg PO BID cranberry 500 mg Capsule 500 mg PO QAM Rx Instructions: administer with meals nitrofurantoin macrocrystal 50 mg capsule 50 mg PO DAILY amiodarone 200 mg tablet 200 mg PO QAM Eliquis 2.5 mg tablet 2.5 mg PO BID atorvastatin 20 mg tablet 20 mg PO QAM carvedilol 12.5 mg tablet 12.5 mg PO BID Qty: 60 1RF Rx Instructions: must administer with a meal/food Take 25mg QAM and 12.5 mg QPM cholecalciferol (vitamin D3) [Vitamin D3] 25 mcg (1,000 unit) Tablet 25 mcg PO BID Referrals Referrals: Yanick Canseco DO [Primary Care Provider] -
--- NOTE | 2023-03-02 17:46 | XRay Report ---
XR chest 1V portable HISTORY: weakness COMPARISON: Chest CT 06/07/2022. FINDINGS: No pneumothorax. No pleural effusions. The cardiac silhouette is top normal in size. This r emains unchanged. There are poststernotomy changes and a cardiac valve prosthesis again noted. Retroc ardiac density likely corresponds the patient's known gastric pull-up. No new focal lung consolidatio ns to suggest a pneumonia. No evidence for pulmonary edema. Degenerative changes within the shoulders . IMPRESSION: No acute process. Additional findings as described above. ACT 112: Negative or not required by law. Electronically signed by: Gian Carvalho M.D. 03/02/2023 5:45 PM
[2023-03-02 18:42] LABS: Hematocrit (blood only) 32.7 % (42.0-52.0); Mean Corpuscular Hemoglobin 34.1 pg (25.0-34.0); Mean Corpuscular Hgb Conc 33.6 g/dL (32.0-36.0); Mean Corpuscular Volume 101.2 fL (80.0-100.0); Mean Platelet Volume 11.6 fL (9.4-12.4); Platelet Count 204 K/uL (130-400); RDW Coefficient of Variation 13.8 % (11.5-14.5); RDW Standard Deviation 51.4 fL (36.4-46.3); Red Blood Count 3.23 M/uL (4.70-6.10); White Blood Count 5.26 K/ul (4.8-10.8)
[2023-03-02 18:51] LABS: Albumin Globulin Ratio 1.1 (0.9-2); Albumin Level 3.4 gm/dl (3.4-5.0); BUN Creatinine Ratio 13.8 (10-20); Bilirubin,Total 0.8 mg/dl (0.2-1.0); Calcium 9.2 mg/dl (8.6-10.3); Est GFR (African American) 54.8 ml/min; Est GFR (Non-African American) 47.3 ml/min; Globulin 3.1 gm/dl (2.5-4.0); Magnesium 1.6 mg/dl (1.7-2.4); Total Protein 6.5 gm/dl (6.0-8.3)
[2023-03-02 18:59] LABS: Basophils # (auto) 0.07 K/uL (0.00-0.20); Basophils % (auto) 1.3 %; Eosinophils # (auto) 0.06 K/uL (0.00-0.50); Eosinophils % (auto) 1.1 %; Immature Granulocytes # (auto) 0.02 K/uL (0.01-0.20); Immature Granulocytes % (auto) 0.4 %; Lymphocytes # (auto) 0.65 K/uL (1.20-3.40); Lymphocytes % (auto) 12.4 %; Monocytes # (auto) 0.41 K/uL (0.11-0.59); Monocytes % (auto) 7.8 %; Neutrophils # (auto) 4.05 K/uL (1.40-6.50)
[2023-03-02 19:26] LABS: Adenovirus PCR Not Detected (NotDetected); Bordetella parapertussis PCR Not Detected (NotDetected); Bordetella pertussis PCR Not Detected (NotDetected); Chlamydia pneumoniae PCR Not Detected (NotDetected); Coronavirus 229E PCR Not Detected (NotDetected); Coronavirus CoV-2 (COVID19)PCR Not Detected (NotDetected); Coronavirus HKU1 PCR Not Detected (NotDetected); Coronavirus NL63 PCR Not Detected (NotDetected); Coronavirus OC43PCR Not Detected (NotDetected); Human Metapneumovirus PCR Not Detected (NotDetected); Influenza A PCR Not Detected (NotDetected); Influenza B PCR Not Detected (NotDetected); Mycoplasma pneumoniae PCR Not Detected (NotDetected); Parainfluenza Virus 1 PCR Not Detected (NotDetected); Parainfluenza Virus 2 PCR Not Detected (NotDetected); Parainfluenza Virus 3 PCR Not Detected (NotDetected); Parainfluenza Virus 4 PCR Not Detected (NotDetected); Respiratory Syncytial VirusPCR Not Detected (NotDetected); Rhinovirus/Enterovirus PCR Not Detected (NotDetected)
[2023-03-02 19:37] LABS: Appearance Urine Cloudy (Clear); Bacteria Urine Automated 1+ (Negative); Bilirubin Urine Negative (Negative); Blood Urine 2+ (Negative); Cast Urine Automated 0 /lpf (0-5); Color Urine Yellow; Epithelial Cell Urine Auto 0-5 /lpf (0-5); Glucose Urine UA Negative (Negative); Ketones Urine Negative (Negative); Leukocyte Esterase Urine 1+ (Negative); Nitrite Urine Negative (Negative); Specific Gravity Urine 1.011 (1.000-1.030); Urobilinogen Urine Negative (Negative); WBC Urine Automated >30 /hpf (0-5); pH Urine 7.5 (4.5-7.5)
[2023-03-02 19:41] LABS: Protein Urine 2+ (Negative)
[2023-03-02] MEDS ORDERED: cefTRIAXone SODIUM 2,000 MG/50 ML BAG IV STA (20:52)
[2023-03-02] MEDS ORDERED: SODIUM CHLORIDE 0.9% 1,000 ML IV ONE (22:11)
[2023-03-02] MEDS ORDERED: MAGNESIUM SULFATE / D5W 1 GM/100 ML BAG IV STA (22:16)
[2023-03-02] MEDS ORDERED: DAPTOmycin 300 MG in SYRINGE 0 ML IV STA (22:53)
--- NOTE | 2023-03-02 23:07 | History & Physical Report ---
Date of Service March 02, 2023 Assessment & Plan (1) Hypotension: Plan: Multifactorial : Hypovolemia from complicated UTI, recurrent UTIs secondary to neurogenic bladder (intermittent straight cath at home)/BPH on chronic methenamine suppression Rx, no sepsis for now High home Coreg dose contributory hx CAD status post CABG/PVD A-fib on Eliquis valvular heart disease (mild MR/TR) severe aortic regurgitation status post recent surgery Postop anemia, hemoglobin stable at 11 hyperlipidemia, on statin Rx hypothyroidism, recent outpatient TSH elevated at 7 with normal free T4 prediabetes, hemoglobin A1c of 6.2 last May 2022 esophageal cancer status post surgery 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 [employer] DNR Text document was generated using [employer] voice recognition software. It may contain grammatical or spelling errors. Kindly contact undersigned for clarification of any documentation item in question. History of Present Illness Chief Complaint: Weakness, fever, chills Primary Care Provider: Yanick Canseco DO History obtained from patient and records. 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 Last confinement May 2022 for bilateral pneumonia status post doxycycline Rx. Recent [facility] confinement February 07 to 2022 for severe aortic regurgitation status post redo sternotomy, AVR, biatrial maze, ISAÍAS ligation. Postop TTE showed EF of 55%. Postop hemoglobin of 11 on discharge. Postop amiodarone course for 1 month prescribed. Outpatient cardiac rehab recommended. No concerns on [place] [facility] a few days ago. 3 days ago, patient noted chills and rigors and increasing weakness. No chest pain, SOB, cough symptoms. No abdominal pain, diarrhea, back pain, dysuria symptoms. Poor appetite. Lightheadedness without headache symptoms. Patient directed to ER for evaluation. IV ceftriaxone administered at the ER for possible UTI. Chambers catheter placed as per patient request for comfort. Lowest SBP of 90s documented at the ER. 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 Allergies Allergy/AdvReac Type Severity Reaction Status Date / Time ragweed pollen Allergy Intermediate Sneezing Verified 03/02/23 18:46 animal dander Allergy Mild itchy Verified 03/02/23 18:46 house dust Allergy Mild Sneezing Verified 03/02/23 18:46 morphine Allergy Mild ITCHING, Verified 03/02/23 18:46 severe N/V pollen extracts Allergy Mild Sneezing Verified 03/02/23 18:46 losartan AdvReac hyperkalemi Verified 03/02/23 18:46 a Home Medications Medication Instructions Recorded Confirmed Type allopurinol 100 mg tablet 100 mg PO BID 07/30/18 03/02/23 History ascorbic acid (vitamin C) 1,000 mg 1,000 mg PO BID 07/30/18 03/02/23 History tablet (Vitamin C) aspirin 81 mg tablet,delayed 81 mg PO HS 07/30/18 03/02/23 History release ([place] Low Dose Aspirin) fish, borage, flaxseed oils-omega 1 cap PO BID 07/30/18 03/02/23 History 3,6,9 cb #1 400 mg-400 mg-400 mg cap ([place] 3-6-9 Complex) multivitamin 2 tab PO BID 07/30/18 03/02/23 History omeprazole 40 mg capsule,delayed 40 mg PO QAM 07/30/18 03/02/23 History release vitamin E 268 mg (400 unit) capsule 400 unit PO UD 07/30/18 03/02/23 History acetaminophen 500 mg tablet 1,000 mg PO Q6H PRN Pain 09/19/19 03/02/23 History glucosamine sulfate 500 mg tablet 500 mg PO BID 09/19/19 03/02/23 History (Glucosamine) nitroglycerin 0.4 mg sublingual 0.4 mg sublingual Q5M PRN Pain 10/09/19 03/02/23 History tablet atorvastatin 20 mg tablet 20 mg PO QAM 03/15/22 03/02/23 History carvedilol 12.5 mg tablet 12.5 mg PO BID #60 tabs 03/20/22 03/02/23 Rx cholestyramine-aspartame 4 gram 4 g PO QAM 06/03/22 03/02/23 History oral powder (Cholestyramine Light) coenzyme Q10 100 mg capsule 600 mg PO BID 06/07/22 03/02/23 History (CoQ-10) cranberry 500 mg capsule 500 mg PO QAM 06/07/22 03/02/23 History levothyroxine 150 mcg tablet 150 mcg PO QAM 06/07/22 03/02/23 History prasterone (dhea) 50 mg capsule 50 mg PO QAM 06/07/22 03/02/23 History (DHEA) cholecalciferol (vitamin D3) 25 25 mcg PO BID 10/26/22 03/02/23 History mcg (1,000 unit) tablet (Vitamin D3) amiodarone 200 mg tablet 200 mg PO QAM 03/02/23 03/02/23 History apixaban 2.5 mg tablet (Eliquis) 2.5 mg PO BID 03/02/23 03/02/23 History nitrofurantoin macrocrystal 50 mg 50 mg PO DAILY 03/02/23 03/02/23 History capsule Past Med/Surg History Medical History Abdominal aortic ectasia Per aortic duplex 10/10/19= There is evidence of a 3.5 cm x 3.5 cm abdominal aortic aneurysm. Color Doppler imaging demonstrates flow consistent with a patent lumen at and distal to the aortic aneurysm. Aortic insufficiency severe per cardio records Atrial fibrillation 06/03/22- pt currently on Eliquis Patient was previously anticoagulated with Eliquis. This was since discontinued by cardiology 04/2019 d/t no a. fib noted on Holter monitor/no known recurrence. Patient on ASA and beta viv. BPH (benign prostatic hyperplasia) CAD (coronary artery disease) s/p CABG x4 (2007) Repeat cath in 2010 showed occlusion of the vein graft to obtuse marginal per cardio records Carotid artery disease Bilateral ICAs 50-69% per 08/2019 carotid duplex CKD (chronic kidney disease), stage III Esophageal cancer Around 2006 or 2008- s/p esophagectomy- no chemo or XRT GERD (gastroesophageal reflux disease) Well controlled and stable Gout Hearing deficit Hx of myocardial infarction 2007 Hyperlipidemia Hypertension Hypothyroidism Sleep apnea can no longer tolerate device Surgical History History of appendectomy History of cardiac cath X 1 SINCE 2007-NO STENTS PLACED-F/U DR JOSE LUIS BENITEZ last visit 03/2022 History of colonoscopy History of esophagogastroduodenoscopy (EGD) History of left cataract extraction 10/22/2019 History of right cataract surgery 10/08/2019. 2mg versed. 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 Beliefs That Will Affect Care: None Current Living Situation: Spouse Current Living Situation Comment: house Feels Safe at Home: Yes Assistive Devices: Cane, Denture - Upper, Denture - Lower and Glasses Review of Systems Review of Systems: As per HPI, all other systems reviewed and negative Physical Exam Physical Exam: GENERAL: Slightly uncomfortable, pleasant, no respiratory distress SKIN: Pallor, warm HEENT: Partial alopecia, pale palpebral conjunctivae, no ptosis, dry buccal mucosa NECK : Supple, no tenderness CHEST : CTA, no tenderness HEART : RRR, systolic murmur ABDOMEN: Some distention, nontender EXTREMITIES : No LE swelling/tenderness, no other conspicuous deformities noted NEUROLOGIC : Coherent, no facial asymmetry, slightly hard of hearing, no other gross focality Results & Data Results & Data Vital Signs (Past 12 Hours) Vital Signs Temp Pulse Pulse Resp BP BP Pulse Ox 03/02/23 22:00 95/70 L 03/02/23 22:00 95/70 L 03/02/23 22:00 68 18 95 03/02/23 21:45 95/63 L 03/02/23 21:45 95/63 L 03/02/23 21:45 68 23 94 03/02/23 21:30 112/62 03/02/23 21:30 67 18 94 03/02/23 21:15 67 20 96 03/02/23 21:15 105/60 03/02/23 21:00 112/57 L 03/02/23 21:00 63 17 97 03/02/23 20:45 118/67 03/02/23 20:45 63 14 94 03/02/23 20:44 62 03/02/23 20:30 62 9 L 96 03/02/23 20:30 123/66 03/02/23 20:15 119/63 03/02/23 20:15 61 18 96 03/02/23 20:00 111/73 03/02/23 20:00 62 15 97 03/02/23 19:45 109/60 03/02/23 19:45 65 17 95 03/02/23 19:30 115/61 03/02/23 19:30 63 24 94 03/02/23 19:15 116/64 03/02/23 19:15 65 22 03/02/23 19:00 112/62 03/02/23 19:00 67 22 03/02/23 18:45 99/64 L 03/02/23 18:45 66 15 03/02/23 18:30 65 21 95 03/02/23 18:30 118/61 03/02/23 18:28 66 18 118/61 93 03/02/23 18:00 79 17 96 03/02/23 17:30 90 19 95 03/02/23 17:00 93 H 26 H 95 03/02/23 16:47 94 H 03/02/23 16:46 94 03/02/23 16:44 93 H 14 90 03/02/23 16:09 37.1 C 89 19 136/72 96 O2 Del Method 03/02/23 22:00 03/02/23 22:00 03/02/23 22:00 03/02/23 21:45 03/02/23 21:45 03/02/23 21:45 03/02/23 21:30 03/02/23 21:30 03/02/23 21:15 03/02/23 21:15 03/02/23 21:00 03/02/23 21:00 03/02/23 20:45 03/02/23 20:45 03/02/23 20:44 03/02/23 20:30 03/02/23 20:30 03/02/23 20:15 03/02/23 20:15 03/02/23 20:00 03/02/23 20:00 03/02/23 19:45 03/02/23 19:45 03/02/23 19:30 03/02/23 19:30 03/02/23 19:15 03/02/23 19:15 03/02/23 19:00 03/02/23 19:00 03/02/23 18:45 03/02/23 18:45 03/02/23 18:30 03/02/23 18:30 03/02/23 18:28 03/02/23 18:00 03/02/23 17:30 03/02/23 17:00 03/02/23 16:47 03/02/23 16:46 Room Air 03/02/23 16:44 03/02/23 16:09 Room Air Laboratory Results Laboratory Results WBC 5.26 K/ul (4.8-10.8) 03/02/23 18:05 RBC 3.23 M/uL (4.70-6.10) L 03/02/23 18:05 Hgb 11.0 g/dl (14.0-18.0) L 03/02/23 18:05 Hct 32.7 % (42.0-52.0) L 03/02/23 18:05 MCV 101.2 fL (80.0-100.0) H 03/02/23 18:05 MCH 34.1 pg (25.0-34.0) H 03/02/23 18:05 MCHC 33.6 g/dL (32.0-36.0) 03/02/23 18:05 RDW Std Deviation 51.4 fL (36.4-46.3) H 03/02/23 18:05 RDW Coeff of Daniela 13.8 % (11.5-14.5) 03/02/23 18:05 Plt Count 204 K/uL (130-400) 03/02/23 18:05 MPV 11.6 fL (9.4-12.4) 03/02/23 18:05 Immature Gran % (Auto) 0.4 % 03/02/23 18:05 Neut % (Auto) 77.0 % 03/02/23 18:05 Lymph % (Auto) 12.4 % 03/02/23 18:05 Donley % (Auto) 7.8 % 03/02/23 18:05 Eos % (Auto) 1.1 % 03/02/23 18:05 Baso % (Auto) 1.3 % 03/02/23 18:05 Neut # (Auto) 4.05 K/uL (1.40-6.50) 03/02/23 18:05 Lymph # (Auto) 0.65 K/uL (1.20-3.40) L 03/02/23 18:05 Donley # (Auto) 0.41 K/uL (0.11-0.59) 03/02/23 18:05 Eos # (Auto) 0.06 K/uL (0.00-0.50) 03/02/23 18:05 Baso # (Auto) 0.07 K/uL (0.00-0.20) 03/02/23 18:05 Immature Gran # (Auto) 0.02 K/uL (0.01-0.20) 03/02/23 18:05 Sodium 133 mmol/L (136-145) L 03/02/23 18:05 Potassium 4.0 mmol/L (3.5-5.1) 03/02/23 18:05 Chloride 99 mmol/L (98-107) 03/02/23 18:05 Carbon Dioxide 28 mmol/L (21-32) 03/02/23 18:05 Anion Gap 6 (3-11) 03/02/23 18:05 BUN 19 mg/dl (6-23) 03/02/23 18:05 Creatinine 1.38 mg/dl (0.6-1.4) 03/02/23 18:05 Est Cr Clr Drug Dosing 44.0 ml/min 03/02/23 18:05 Est GFR ( Amer) 54.8 ml/min 03/02/23 18:05 Est GFR (Non-Af Amer) 47.3 ml/min 03/02/23 18:05 BUN/Creatinine Ratio 13.8 (10-20) 03/02/23 18:05 Glucose 105 mg/dl (70-99(Fasting)) H 03/02/23 18:05 Lactate 1.3 mmol/L (0.4-2.0) 03/02/23 18:05 Calcium 9.2 mg/dl (8.6-10.3) 03/02/23 18:05 Magnesium 1.6 mg/dl (1.7-2.4) L 03/02/23 18:05 Total Bilirubin 0.8 mg/dl (0.2-1.0) 03/02/23 18:05 AST 20 U/L (13-39) 03/02/23 18:05 ALT 8 U/L (7-52) 03/02/23 18:05 Alkaline Phosphatase 63 U/L (34-104) 03/02/23 18:05 Total Protein 6.5 gm/dl (6.0-8.3) 03/02/23 18:05 Albumin 3.4 gm/dl (3.4-5.0) 03/02/23 18:05 Globulin 3.1 gm/dl (2.5-4.0) 03/02/23 18:05 Albumin/Globulin Ratio 1.1 (0.9-2) 03/02/23 18:05 Procalcitonin 0.07 ng/ml (0-0.5) 03/02/23 18:05 Urine Color Yellow 03/02/23 19:25 Urine Appearance Cloudy (Clear) A 03/02/23 19:25 Urine pH 7.5 (4.5-7.5) 03/02/23 19:25 Ur Specific [place] 1.011 (1.000-1.030) 03/02/23 19:25 Urine Protein 2+ (Negative) H 03/02/23 19:25 Urine Glucose (UA) Negative (Negative) 03/02/23 19:25 Urine Ketones Negative (Negative) 03/02/23 19:25 Urine Blood 2+ (Negative) H 03/02/23 19:25 Urine Nitrite Negative (Negative) 03/02/23 19:25 Urine Bilirubin Negative (Negative) 03/02/23 19:25 Urine Urobilinogen Negative (Negative) 03/02/23 19:25 Ur Leukocyte Esterase 1+ (Negative) H 03/02/23 19:25 Urine WBC (Auto) >30 /hpf (0-5) H 03/02/23 19:25 Urine RBC (Auto) 10-30 /hpf (0-4) H 03/02/23 19:25 U Hyaline Cast (Auto) 0 /lpf (0-5) 03/02/23 19:25 U Epithel Cells (Auto) 0-5 /lpf (0-5) 03/02/23 19:25 Urine Bacteria (Auto) 1+ (Negative) H 03/02/23 19:25 Adenovirus (PCR) Not Detected (NotDetected) 03/02/23 18:20 B. pertussis DNA (PCR) Not Detected (NotDetected) 03/02/23 18:20 B.parapertussis DNA PCR Not Detected (NotDetected) 03/02/23 18:20 C. pneumoniae DNA (PCR) Not Detected (NotDetected) 03/02/23 18:20 Coronavirus OC43 (PCR) Not Detected (NotDetected) 03/02/23 18:20 Coronavirus HKU1 (PCR) Not Detected (NotDetected) 03/02/23 18:20 Coronavirus 229E (PCR) Not Detected (NotDetected) 03/02/23 18:20 SARS-CoV-2 (PCR) Not Detected (NotDetected) 03/02/23 18:20 Coronavirus NL63 (PCR) Not Detected (NotDetected) 03/02/23 18:20 Human Metapneumovir PCR Not Detected (NotDetected) 03/02/23 18:20 Influenza Type A (PCR) Not Detected (NotDetected) 03/02/23 18:20 Influenza Type B (PCR) Not Detected (NotDetected) 03/02/23 18:20 M. pneumoniae (PCR) Not Detected (NotDetected) 03/02/23 18:20 Parainfluenza 1 (PCR) Not Detected (NotDetected) 03/02/23 18:20 Parainfluenza 2 (PCR) Not Detected (NotDetected) 03/02/23 18:20 Parainfluenza 3 (PCR) Not Detected (NotDetected) 03/02/23 18:20 Parainfluenza 4 (PCR) Not Detected (NotDetected) 03/02/23 18:20 RSV (PCR) Not Detected (NotDetected) 03/02/23 18:20 Entero/Rhino (PCR) Not Detected (NotDetected) 03/02/23 18:20 Impressions Chest X-Ray 03/02/23 16:46 XR chest 1V portable HISTORY: weakness COMPARISON: Chest CT 06/07/2022. FINDINGS: No pneumothorax. No pleural effusions. The cardiac silhouette is top normal in size. This remains unchanged. There are poststernotomy changes and a cardiac valve prosthesis again noted. Retrocardiac density likely corresponds the patient's known gastric pull-up. No new focal lung consolidations to suggest a pneumonia. No evidence for pulmonary edema. Degenerative changes within the shoulders. IMPRESSION: No acute process. Additional findings as described above. ACT 112: Negative or not required by law. Electronically signed by: Gian Carvalho M.D. 03/02/2023 5:45 PM Diagnostic Findings EKG as per my interpretation :Rate 85, NSR, LAD, LAFB, LVH, ST depression lateral leads
[2023-03-02] MEDS ORDERED: PROMETHAZINE HCL 6.25 MG in SODIUM CHLORIDE 0.9% 50 ML IV PRN (23:12)
[2023-03-02] MEDS ORDERED: SODIUM CHLORIDE 0.9% 1,000 ML IV STA (23:20)
[2023-03-03] MEDS ORDERED: ACETAMINOPHEN 325 MG TAB PO PRN (00:41)
[2023-03-03] MEDS: APIXABAN 2.5 MG TAB PO SCH ×3 (01:48→21:16)
[2023-03-03 05:18] LABS: Hematocrit (blood only) 32.3 % (42.0-52.0); Hemoglobin 10.6 g/dl (14.0-18.0); Mean Corpuscular Hemoglobin 34.1 pg (25.0-34.0); Mean Corpuscular Hgb Conc 32.8 g/dL (32.0-36.0); Mean Corpuscular Volume 103.9 fL (80.0-100.0); Mean Platelet Volume 11.6 fL (9.4-12.4); Platelet Count 184 K/uL (130-400); RDW Coefficient of Variation 13.7 % (11.5-14.5); RDW Standard Deviation 52.6 fL (36.4-46.3); Red Blood Count 3.11 M/uL (4.70-6.10); White Blood Count 4.81 K/ul (4.8-10.8)
[2023-03-03 05:32] LABS: BUN Creatinine Ratio 13.3 (10-20); Calcium 8.8 mg/dl (8.6-10.3); Creatinine Clr Calc Pharmacy 44.9 ml/min; Est GFR (African American) 56.3 ml/min; Est GFR (Non-African American) 48.5 ml/min; Magnesium 1.8 mg/dl (1.7-2.4)
[2023-03-03 05:36] LABS: Basophils # (auto) 0.06 K/uL (0.00-0.20); Basophils % (auto) 1.2 %; Eosinophils # (auto) 0.15 K/uL (0.00-0.50); Eosinophils % (auto) 3.1 %; Immature Granulocytes # (auto) 0.02 K/uL (0.01-0.20); Immature Granulocytes % (auto) 0.4 %; Lymphocytes % (auto) 16.6 %; Monocytes # (auto) 0.44 K/uL (0.11-0.59); Monocytes % (auto) 9.1 %; Neutrophils # (auto) 3.34 K/uL (1.40-6.50); Neutrophils % (auto) 69.6 %
[2023-03-03] MEDS: LEVOTHYROXINE SODIUM 150 MCG TABLET PO SCH (06:16)
--- NOTE | 2023-03-03 08:56 | Electrocardiogram Report ---
Test Reason : Blood Pressure : / mmHG Vent. Rate : 086 BPM Atrial Rate : 086 BPM P-R Int : 224 ms QRS Dur : 118 ms QT Int : 380 ms P-R-T Axes : 000 -21 200 degrees QTc Int : 454 ms Poor data quality, interpretation may be adversely affected Probable Atrial flutter Left ventricular hypertrophy with QRS widening and repolarization abnormality Abnormal ECG When compared with ECG of 07-JUN-2022 12:28, Atrial flutter has replaced Atrial fibrillation Confirmed by John Montoya ([id number]) on 03/03/2023 8:56:01 AM Referred By: REFERRED SELF Confirmed By:John Montoya
[2023-03-03] MEDS: MULTIVITAMIN TAB PO SCH ×2 (09:45→21:15)
[2023-03-03] MEDS: ATORVASTATIN 20 MG TAB PO SCH (09:45)
[2023-03-03] MEDS: AMIODARONE 200 MG TAB PO SCH (09:45)
[2023-03-03] MEDS: carvediloL 3.125 MG TAB PO SCH ×2 (09:45→21:15)
[2023-03-03] MEDS: allopurinoL 100 MG TAB PO SCH ×2 (09:45→21:16)
[2023-03-03] MEDS: PANTOprazole 40 MG TAB PO SCH (09:45)
[2023-03-03] MEDS: CHOLESTYRAMINE LIGHT 4 GM PKT PO SCH (11:20)
--- NOTE | 2023-03-03 17:04 | Hospitalist Progress Note ---
Date of Service March 03, 2023 Assessment & Plan (1) Hypotension: Plan: Multifactorial : Hypovolemia from complicated UTI, recurrent UTIs secondary to neurogenic bladder (intermittent straight cath at home)/BPH on chronic methenamine suppression Rx, no sepsis for now High home Coreg dose contributory hx CAD status post CABG/PVD A-fib on Eliquis valvular heart disease (mild MR/TR) severe aortic regurgitation status post recent surgery Postop anemia, hemoglobin stable at 11 hyperlipidemia, on statin Rx hypothyroidism, recent outpatient TSH elevated at 7 with normal free T4 prediabetes, hemoglobin A1c of 6.2 last May 2022 esophageal cancer status post surgery 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 Nicole DNR 03/02 clinically improving afebrile BP improving ff up urine and blood culture ff up echo continue Ceftriaxone + Dapto for now HR 50s Coreg decreased monitor Disposition anticipate d/c home when medically stable Admission and Anticipated Discharge Date Admission Date: March 02, 2023 Subjective ff up for UTI, etc seen resting in bed sitting up in good spirits states he feels improved compared to admission chills, weakness, poor appetite seems to be improving denies pain over the chest wall no cough, shortness of breath, problems with BM no other symptoms Review of Systems Review of Systems: all noted and negative except for above Physical Exam Physical Exam: General- oriented x 3, not in distress, speaks in sentences with no effort or accessory muscle use Eyes- anicteric Neck- no JVD Lungs- clear breath sounds bilaterally, no rales/wheezes Heart- normal rate, regular rhythm; no murmurs chest wall: incision site- no erythema, warmth, tenderness, bleeding, discharge Abdomen- normal bowel sounds, nondistended, soft, nontender Extremities- no pretibial edema, no calf tenderness Neuro- alert, oriented x 3; no gross focal neurologic deficits Skin- warm & dry Results & Data Results & Data Vital Signs (Past 12 Hours) Vital Signs Temp Pulse Pulse Resp BP Pulse Ox O2 Del Method 03/03/23 16:44 54 L 03/03/23 15:53 36.7 C 58 L 16 129/73 95 Room Air 03/03/23 11:59 36.5 C 56 L 18 128/71 96 Room Air 03/03/23 11:34 Room Air 03/03/23 08:08 36.5 C 54 L 16 122/66 96 Room Air 03/03/23 08:06 59 L all noted and reviewed including below
[2023-03-03] MEDS: ASPIRIN 81 MG ECTAB PO SCH (21:16)
[2023-03-03] MEDS: cefTRIAXone SODIUM 2,000 MG in DEXTROSE 5 % MINI-B 50 ML IV SCH (21:16)
[2023-03-03] MEDS ORDERED: DAPTOmycin 300 MG in SYRINGE 0 ML IV SCH (23:00)
[2023-03-04] MEDS: LEVOTHYROXINE SODIUM 150 MCG TABLET PO SCH (06:17)
[2023-03-04] MEDS: MULTIVITAMIN TAB PO SCH ×2 (09:51→22:12)
[2023-03-04] MEDS: carvediloL 3.125 MG TAB PO SCH ×2 (09:51→22:13)
[2023-03-04] MEDS: ATORVASTATIN 20 MG TAB PO SCH (09:51)
[2023-03-04] MEDS: PANTOprazole 40 MG TAB PO SCH (09:51)
[2023-03-04] MEDS: allopurinoL 100 MG TAB PO SCH ×2 (09:51→22:14)
[2023-03-04] MEDS: CHOLESTYRAMINE LIGHT 4 GM PKT PO SCH (09:51)
[2023-03-04] MEDS: APIXABAN 2.5 MG TAB PO SCH ×2 (09:51→22:13)
[2023-03-04] MEDS: AMIODARONE 200 MG TAB PO SCH (09:51)
--- OUTSIDE RECORDS SUMMARY | 2023-03-04 16:26 | External Medical Summary | Summary of Care ---
Author Name Unknown Organization [facility] Address [address] [place] [address] Phone [phone] Care Team Providers Care Stores Naval Name Role Phone Yanick Canseco DO Primary Care Provider [phone] Reason for Visit * Reason Onset Date Comments Advice 03/02/2023 advise Encounter Details Date Type Department Care Team (Late st Contact Info) Description 03/02/2023 Telephone Family Practice [facility] [address] [place] [address] Yanick Canseco DO [address] [place] [address] Advice (advise) Allergies Active Allergy Reactions Criticality Noted Date Comments Cat Dander 09/25/2014 Dog Dander 09/25/2014 Dust 09/23/2015 Pollen 09/25/2014 Losartan Other (Please comment) 03/02/2021 Hyperkalemia Morphine Nausea/vomiting Low 12/13/2017 Ragweed 09/25/2014 documented as of this encounter (statuses as of 03/02/2023) Medications Medication Sig Dispensed Refills Start Date End Date Status VITAMIN E 400 UNIT PO CAPS Take 1 Capsule by mouth. Wednesdays and Sundays 0 Active ACETAMINOPHEN 500 MG PO TABS Two pills by mouth every 6 hours as needed for fever or pain 0 08/25/2011 Active GLUCOSAMINE CHONDROITIN COMPLX PO TABS Take 1 Tablet by mouth 2 times a day. 0 02/06/2012 Active Ascorbic Acid 1000 MG Oral Tablet Take 2 Tablets by mouth 2 times a day. 0 09/27/2016 Active Multiple Vitamin (MULTI VITAMIN) TABS Take 1 Tablet by mouth daily. Ultra preventative X 0 02/09/2017 Active aspirin enteric coated 81 MG TBEC Take 1 Tablet by mouth every evening. 0 Active [place]-3 Fatty Acids (ULTRA OMEGA 3) 952 MG CAPSIndications:Dy slipidemia, goal LDL below 100 One tab twice daily 180 Cap 1 04/19/2018 Active Additional Information Patient taking differently: 1 Capsule Oral BID(Non-Specified), (No instructions reported), Reported on 02/17/2023 Coenzyme Q10 100 MG Oral Tablet Take 1 Tablet by mouth in the morning. 0 Active DHEA 50 MG Oral Tablet Take 50 mg by mouth daily. 0 Active Nitroglycerin 0.4 MG Sublingual Tablet Sublingual (Nitrostat)Indicat ions:Atheroscleros is of [place] coronary artery of [place] heart without angina pectoris Place under the tongue 1 Tablet every 5 minutes as needed for Pain, Chest. Maximum 3 doses. 25 Tablet 5 09/07/2021 Active Additional Information Patient not taking.Reported on 02/27/2023 Vitamin D 25 MCG (1000 UT) Oral Tablet Take 2 Tablets by mouth daily. 0 09/07/2021 Active Cranberry 500 MG Oral Capsule Take 420 mg by mouth in the morning. 0 04/19/2022 Active Allopurinol 100 MG Oral Tablet (Zyloprim)Indicati ons:Gouty arthropathy TAKE ONE TABLET BY MOUTH IN THE MORNING AND TAKE ONE TABLET BEFORE BEDTIME 200 Tablet 3 10/10/2022 4 Active Nitrofurantoin Macrocrystal 50 MG Oral Capsule (Macrodantin) TAKE ONE CAPSULE BY MOUTH EVERY DAY WITH MEAL/FOOD 90 Capsule 3 09/07/2022 4 Active Atorvastatin Calcium 20 MG Oral Tablet (Lipitor) TAKE ONE TABLET BY MOUTH EVERY MORNING 100 Tablet 3 04/20/2022 4 Active Catheters by Ureteral route 7 times a day. Uses 14 Caude catheters, self cath's 7 times daily 0 10/24/2022 Active Omeprazole 40 MG Oral Capsule Delayed Release (PriLOSEC)Indicati ons:History of esophageal cancer Take 1 Capsule by mouth in the morning. 100 Capsule 1 11/16/2022 Active Apixaban 2.5 MG Oral Tablet (Eliquis) Take 1 Tablet by mouth in the morning and 1 Tablet before bedtime. 60 Tablet 5 11/24/2022 Active Levothyroxine Sodium 150 MCG Oral Tablet (Levoxyl) TAKE ONE TABLET BY MOUTH EVERY MORNING AT LEAST 30 MINUTES PRIOR TO BREAKFAST OR OTHER MEDS 100 Tablet 1 12/08/2022 Active Carvedilol 12.5 MG Oral Tablet (Coreg)Indications :Atrial fibrillation with RVR (HCC) TAKE TWO TABLETS BY MOUTH EVERY DAY IN THE MORNING AND TAKE ONE TABLET BY MOUTH EVERY DAY IN THE EVENING 300 Tablet 1 12/12/2022 Active Cholestyramine 4 GM Oral Packet (Questran) Take 1 Packet by mouth in the morning. Mixed with liquid.. 90 Packet 1 01/23/2023 Active Amiodarone HCl 200 MG Oral Tablet (Cordarone) Take 1 Tablet by mouth in the morning. 0 02/14/2023 Active documented as of this encounter (statuses as of 03/02/2023) Active Problems Problem Noted Date Diagnosed Date S/P AVR (aortic valve replacement) 02/17/2023 Pulmonary nodule, left 02/17/2023 Aortic root enlargement 12/28/2022 Infrarenal abdominal aortic aneurysm (AAA) witho ut rupture 05/27/2022 Persistent proteinuria 03/07/2021 Severe aortic insufficiency 03/02/2021 Adverse reaction to angiotensin 2 receptor antag onist 03/02/2021 Overview: Hyperkalemia Hypertensive kidney disease with stage 3b chronic kidney disease 09/29/2020 Overview: Per CKD protocol Asymptomatic bilateral carotid artery stenosis 0 04/19/2019 Hypothyroidism due to acquired atrophy of thyroi d 04/19/2019 Prediabetes 05/28/2018 Overview: Per Prediabetes protocol #1 Paroxysmal atrial fibrillation 01/30/2018 Neurogenic bladder 10/24/2017 Mild obstructive sleep apnea 04/03/2017 Overview: Untreated 02/2021 Sensorineural hearing loss (SNHL) of both ears 0 11/14/2016 Dyslipidemia, goal LDL below 70 03/30/2009 Overview: Per Lipid Taxonomy. HTN, GOAL BELOW 140/90 03/05/2009 Overview: Modified per HTN protocol #16. Disc disorder of lumbar region 02/20/2009 Gouty arthropathy 01/29/2009 Overview: ICD-9 Code Update. 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 10/15/19 08 Coronary atherosclerosis of [place] coronary celina ry 10/15/2007 BPH without obstruction/lower urinary tract symp toms 09/08/2005 Other allergic rhinitis 02/28/2001 Overview: ICD-10 update of inactive term Hastings's esophagus with high grade dysplasia Overview: Hastings's esophagus: egd by Dr Grant () f/u EGD 2001- neg per pt Cyst of kidney, acquired Overview: followed at [facility] documented as of this encounter (statuses as of 03/02/2023) Resolved Problems Problem Noted Date Diagnosed Date Resolved Date Benign hypertension with sta ge 3b chronic kidney disease 09/29/2020 05/27/2022 Overview: Per CKD protocol Benign hypertension with sta ge 3a chronic kidney disease 08/25/2020 10/01/2020 Overview: Per CKD protocol Hypertensive kidney disease with stage 3a chronic kidney disease 08/25/2020 10/01/2020 Overview: Per CKD protocol Hypertensive kidney disease, stage III 10/09/2018 08/27/2020 Overview: Per CKD protocol Benign hypertension with CKD (chronic kidney disease) stage III 04/19/2018 08/27/2020 Overview: Per CKD protocol Insomnia 09/27/2016 11/29/2018 H/O sleep apnea 09/27/2016 09/05/2017 Episodic cluster headache, not intractable 03/22/2016 12/08/2016 Carotid stenosis, non-symptomatic 03/22/2016 09/27/2019 Nonrheumatic aortic valve insufficiency 10/03/2014 03/09/2022 Kidney disease, chronic, sta ge III (GFR 30-59 ml/min) 09/10/2013 04/19/2018 AAA (abdominal aortic aneurysm) 08/21/2012 06/06/2022 Overview: 3.4 by CTA 08/09/2012 [employer] Other*[id number] 03/08/2011 05/24/2016 Shortness of breath 02/22/2011 12/09/19 17 Aortocoronary bypass status 02/22/2011 09/05/2017 Paroxysmal A-fib 02/16/2010 12/08/2016 Abdominal aortic aneurysm 02/20/2009 Dyslipidemia, goal LDL below 160 10/15/2007 03/30/2009 Overview: Per Lipid Taxonomy. ADVANCE DIRECTIVE INFORMATION 09/02/2004 09/13/2016 Overview: Yes, Patient instructed to provide copy of advance directive for provider to review and to be scanned into Electronic Medical Record. Gouty arthropathy 08/12/2002 01/29/2009 Overview: ICD-9 Code Update. R podagra ICD-10 update of inactive term Hemorrhoids, external without complications 07/12/2002 02/28/2017 Internal hemorrhoids 07/12/2002 005 Dyspnea and respiratory abnormality 02/28/2001 02/28/2017 Overview: ICD-10 update of inactive term Hypothyroidism 09/27/2019 HYPERTENSION NOS 03/05/2009 Overview: Modified per HTN protocol #16. documented as of this encounter (statuses as of 03/02/2023) Immunizations Name Administration Dates Next Due COVID-19 mRNA, LNP-s, No Pre serve, 2-Dose Series (Moderna) 06/10/2020,05/13/2020 COVID-19, LNP-s, No Preserve , Adiel-sucrose, Ages 12+ ([employer]) 12/06/2021 COVID-19, mRNA, LNP-s, PF, B ooster, 100mcg/0.5mg (Moderna) 02/24/2021 Covid-19, Mrna, Lnp-s, Pf, B ivalent, 30 Mcg, IM, 12 yrs and above (Pfizer) 04/19/2022 HEP A - Hepatitis A (Adult > 18 yrs) 02/13/2007, 07/18/2006 Hepatitis B, 20+ yrs 08/30/2016,03/15/2016,02/10 Pneumococcal Conjugate Vacc, 13 Valent (Prevnar) 12/11/2017,12/22/2015 Pneumococcal Polysaccharide PPV23 (Pneumovax) 06/10/2022,12/06/2012,01/20/2006 RSV Vac., Bivalent, Perfusio n F, Pf,0.5 Ml (Abrysvo) 02/23/2023 SEASONAL INFLUENZA, PF, 6 M & Above, IM , (FLULAVAL or FLUZONE) 01/29/2018 Season Influenza, Quad, PF, Adjuvanted, 65+ Yrs, IM (FLUAD) 02/03/2022,01/28/2020 Seasonal Influenza Virus Vac cine, Unspecified Formulation 12/21/2018,01/29/2018,01/18/2017,01/15,02/24/2016,01/06/2010,03/23/2009 ,03/05/2008,02/13/2007,01/20/2006,03/17,03/20/2003,04/03/2002, 1,03/22/2000 Seasonal Influenza, Quadriva lent Hd (Fluzone Hd) 12/28/2022,03/02/2021 Seasonal Influenza, Quadriva lent, No Preserve, IM 01/18/2017,02/24/2016,03/04/2015 Seasonal Influenza, Split, I IV3, With Preserve, Inj 02/05/2014,03/05/2013,02/06/2012,02/01,01/06/2010,03/23/2009,03/05/2008 ,02/13/2007,01/20/2006 Seasonal Influenza, Trivalen t, Adjuvanted, 65+ yrs 12/21/2018 TD - Tetanus/Diptheria (ADULT) 08/07/2007 TDAP (age 11 and older)(Adacel) 09/13/2016 Varicella Zoster Vaccine (Adult) 02/06/2012 Zoster Vaccine Recombinant (Shingrix) 04/04/2020 ,02/03/2020 documented as of this encounter Social History Tobacco Use Types Packs/Day Years Used Date Smoking Tobacco: Former Cigarettes 1 20 Q uit: 04/17/1982 Passive Smoke Exposure: Past Smokeless Tobacco: Never Comments:no passive smoke Alcohol Use Standard Drinks/Week Comments Not Currently 0 (1 standard drink = 0.6 oz pur e alcohol) rarely AUDIT-C Answer Date Recorded Q1: How often do you have a drink containing alc ohol? 2-4 times a month 03/04/2020 Q2: How many drinks containi ng alcohol do you have on a typical day when you are drinking? 1 or 2 03/04/2020 Q3: How often do you have si x or more drinks on one occasion? Not asked 03/04/2020 PHQ-2 Answer Date Recorded PHQ Adult Total Score 0 02/23/2023 Hunger Vital Sign Answer Date Recorded Within the past 12 months, y ou worried that your food would run out before you got the money to buy more. Never true 02/24/20 23 Within the past 12 months, t he food you bought just didn't last and you didn't have money to get more. Never true 02/23/2023 Sex and Gender Information Value Date Recorded Sex Assigned at Male 08/03/2022 9:25 AM EDT Gender Identity Male 08/03/2022 9:25 AM EDT Sexual Orientation Straight 08/03/2022 9: 25 AM EDT Job Start Date Occupation Industry Not on file Not on file Not on file documented as of this encounter Miscellaneous Notes * Telephone Encounter - Celina Malloy OSA - 03/02/2023 9:38 AM EST Pt calling to state he recently had open hear surgery at [facility]. States the past three days he has had no energy at all. States he is not able to eat, not able to do anything. Pt stated his surgeon advised if he had any problems to reach out to his primary care doc. He has not yet spoke to them regarding the symptoms as he was starting with us. He can be reached at [phone]. documented in this encounter Plan of Treatment Upcoming Encounters Date Type Department Care Team (Late st Contact Info) Description 03/15/2023 9:20 AM EST Office Visit Family Practice [address] [place] [address] [place] [address] Yanick Canseco, 293 [facility] [place] [address] 03/17/2023 10:30 AM EST Office Visit Gastroenterology, [facility] [address] [facility] [place] [address] Patricia Mejia CRNP 132 [facility] [place] [address] 04/12/2023 3:00 PM EST Office Visit Cardiology, [facility] [address] [facility] [place] [address] Bessy Gill PA-C [facility] [place] [address] 06/30/2023 11:20 AM EDT Office Visit Nephrology, [facility] [address] [place] [address] Ryan Issa MD [address] [place] [address] 08/18/2023 3:00 PM EDT [facility] [address] [place] [address] Ryan Issa MD [address] [place] [address] 08/22/2023 11:00 AM EDT Imaging Radiology [facility] [address] [facility] [place] [address] 02/27/2025 3:40 PM EST [facility] [place] [address] Laure Arias, PATRICE [address] [place] [address] [place] [address] Health Maintenance Due Date Last Done Comments Hastings's Esophagus Surveilance 03/17/2019 03/17/2016, 04/29/2014, 03/23/2012, Additional history exists COVID-19 Vaccine ( season) 2022 04/19/2022, 12/06/2021, 02/24/2021, Additional history exists GFR 08/28/2023 02/27/2023, 06/2022, 10/25/2022, Additional history exists Albumin/Creatinine Ratio 09/07/2023 023, 09/21/2021, 09/10/2013, Additional history exists HbA1c 12/14/2023 12/13/2022, 08/16, 03/09/2022, Additional history exists Depression Screening 02/24/2024 02/23/2023 CKD HGB USE SMARTSET 93763 02/28/202402/27, 02/27/2023, 02/17/2023, Additional history exists CKD PHOS USE SMARTSET 09524 02/28/202402/15, 12/13/2022, 10/11/2021, Additional history exists TSH 02/28/2024 02/27/2023, 10/15, 09/05/2022, Additional history exists DTaP,Tdap,and Td Vaccines (2 - Td or Tdap) 09/13/2026 09/13/2016, 08/07/2007 Hepatitis B Completed 08/30/2016, 02/16, 02/11/2016 Zoster Vaccines Completed 04/04/2020, 01/15, 02/06/2012 Pneumococcal Vaccine: 65+ Years Completed 06/10/2022, 12/11/2017, 12/22/2015, Additional history exists Influenza Vaccine (FLU shot) Completed , 02/03/2022, 03/02/2021, Additional history exists GARDASIL-HPV IMMUNIZATION SERIES Aged Out No longer eligible based on patient's age to complete this topic MENINGOCOCCAL (MENACTRA/MENVEO) Aged Out No longer eligible based on patient's age to complete this topic documented as of this encounter Medical Devices Not on filedocumented as of this encounter Care Teams Stores Naval Relationship Specialty Start Date End Date Yanick Canseco DO [address] [place] [address] PCP - General Internal Medicine 04/07/22 documented as of this encounter
--- OUTSIDE RECORDS SUMMARY | 2023-03-04 16:26 | External Medical Summary | Summary of Care ---
Author Name Unknown Organization [facility] Address [address] [place] [address] Phone [phone] Care Team Providers Care Animal Care Worker Name Role Phone Yanick Canseco DO Primary Care Provider [phone] Reason for Visit * Reason Onset Date Comments Advice 03/02/2023 advise Encounter Details Date Type Department Care Team (Late st Contact Info) Description 03/02/2023 Telephone Family Practice [facility] [address] [place] [address] Yanick Canseco DO [address] [place] [address] Advice (advise) Allergies Active Allergy Reactions Criticality [...] Tablet by mouth every evening. 0 Active [place]-3 Fatty Acids (ULTRA OMEGA 3) 952 MG [...] Sublingual Tablet Sublingual (Nitrostat)Indicat ions:Atheroscleros is of [place] coronary artery of [place] heart without angina pectoris Place under the [...] bypass graft 10/15/19 08 Coronary atherosclerosis of [place] coronary celina ry 10/15/2007 BPH without obstruction/lower urinary tract symp toms 09/08/2005 Other allergic rhinitis 02/28/2001 Overview: ICD-10 update of inactive term Hastings's esophagus with high grade dysplasia Overview: Hastings's esophagus: egd by Dr Grant () f/u EGD 2001- neg per pt Cyst of kidney, acquired Overview: followed at [facility] documented as of this encounter (statuses as [...] 3.4 by CTA 08/09/2012 [employer] Other*[id number] 03/08/2011 05/24/2016 Shortness of breath 02/22/2011 12/09/19 [...] LNP-s, No Preserve , Adiel-sucrose, Ages 12+ ([employer]) 12/06/2021 COVID-19, mRNA, LNP-s, PF, B ooster, 100mcg/0.5mg (Moderna) 02/24/2021 Covid-19, Mrna, Lnp-s, Pf, B ivalent, 30 Mcg, IM, 12 yrs and above (Pfizer) 04/19/2022 HEP A - Hepatitis A (Adult > 18 yrs) 02/13/2007, 07/18/2006 Hepatitis B, 20+ yrs 08/30/2016,03/15/2016,02/10 Pneumococcal Conjugate Vacc, 13 Valent (Prevnar) 12/11/2017,12/22/2015 Pneumococcal Polysaccharide PPV23 (Pneumovax) 06/10/2022,12/06/2012,01/20/2006,03/17 RSV Vac., Bivalent, Perfusio n F, Pf,0.5 Ml (Abrysvo) 02/23/2023 SEASONAL INFLUENZA, PF, 6 M & Above, IM , (FLULAVAL or FLUZONE) 01/29/2018 Season Influenza, Quad, PF, Adjuvanted, 65+ Yrs, IM (FLUAD) 02/03/2022,01/28/2020 Seasonal Influenza Virus Vac cine, Unspecified Formulation 12/21/2018,01/29/2018,01/18/2017,04/2016,02/24/2016,01/06/2010,03/23/20 09,03/05/2008,02/13/2007,01/20/2006,1 06/01/2004,03/20/2003,04/03/2002,04/05,03/22/2000 Seasonal Influenza, Quadriva lent Hd (Fluzone Hd) 12/28/2022,03/02/2021 Seasonal Influenza, Quadriva lent, No Preserve, IM 01/18/2017,02/24/2016,03/04/2015 Seasonal Influenza, Split, I IV3, With Preserve, Inj 02/05/2014,03/05/2013,02/06/2012,01/15,01/06/2010,03/23/2009,03/05/20 08,02/13/2007,01/20/2006,03/31/2005,1 05/21/2002,04/03/2002,04/05/2001,03/2209/16/2001 Seasonal Influenza, Trivalen t, Adjuvanted, 65+ yrs [...] encounter Miscellaneous Notes * Telephone Encounter - Argenis Sauer LPN - 03/02/2023 11:28 AM EST Called, no chest pain or sob some dizziness. Is not taking his blood pressure. Denies fever. Denies and N/V/D. Would like to be seen * Telephone Encounter - Celina Malloy OSA - 03/02/2023 9:38 AM EST Pt calling to state he recently had open hear surgery at [facility]. States the past three days he has had no energy at all. States he is not able to eat, not able to do anything. Pt stated his surgeon advised if he had any problems to reach out to his primary care doc. He has not yet spoke to them regarding the symptoms as he was starting with us. He can be reached at [phone]. documented in this encounter Plan of Treatment Upcoming Encounters Date Type Department Care Team (Late st Contact Info) Description 03/15/2023 9:20 AM EST Office Visit Family Practice [address] [place] [address] 293 [place] [address] Yanick Canseco DO 293 [facility] [address] 03/17/2023 10:30 AM EST Office Visit Gastroenterology, [facility] [address] [facility] [place] [address] Patricia Mejia CRNP [facility] [place] [address] 04/12/2023 3:00 PM EST Office Visit Cardiology, [facility] [address] [facility] [place] [address] Bessy Gill PA-C [facility] [place] [phone] 06/30/2023 11:20 AM EDT Office Visit Nephrology, [facility] [address] [place] [address] Ryan Issa MD [address] [place] [address] 08/18/2023 3:00 PM EDT Office Visit Nephrology, [facility] [address] [place] [address] Ryan Issa MD [address] [place] [address] 08/22/2023 11:00 AM EDT Imaging Radiology [facility] 1st [facility] [place] [address] [facility] [place] [address] 02/27/2025 3:40 PM EST Office [address], [address] [address] Laure Arias PA-C [address] [place] [address] [place] [address] Health Maintenance Due Date Last Done Comments Hastings's Esophagus Surveilance 03/17/2019 03/17/2016, 04/29/2014, 03/23/2012, Additional history exists COVID-19 Vaccine ( season) 2022 04/19/2022, 12/06/2021, 02/24/2021, Additional history exists GFR 08/28/2023 02/27/2023, 06/2022, 10/25/2022, Additional history exists Albumin/Creatinine Ratio 09/07/2023 023, 09/21/2021, 09/10/2013, Additional history exists HbA1c 12/14/2023 12/13/2022, 08/16, 03/09/2022, Additional history exists Depression Screening 02/24/2024 02/23/2023 CKD HGB USE SMARTSET 85830 02/28/202402/27, 02/27/2023, 02/17/2023, Additional history exists CKD PHOS USE SMARTSET 81056 02/28/202402/15, 12/13/2022, 10/11/2021, Additional history exists TSH [...] filedocumented as of this encounter Care Teams Animal Care Worker Relationship Specialty Start Date End Date Yanick Canseco DO [address] [place] [address] PCP - General Internal Medicine 04/07/22 documented as of this encounter
--- OUTSIDE RECORDS SUMMARY | 2023-03-04 16:27 | External Medical Summary | Summary of Care ---
Author Name Unknown Organization [facility] Address [address] [place] [facility] [place] [address] Phone [phone] Care Team Providers Care Scalp Specialist Name Role Phone Yanick Canseco DO Primary Care Provider [phone] Reason for Visit * Reason Comments Outpatient Testing Encounter Details Date Type Department Care Team (Late st Contact Info) Description 02/27/2023 12:00 PM EST Laboratory Laboratory, [facility] [address] [facility] [phone] [facility] [address] [facility] [place] [address] Abnormal kidney function; Stage 3b chronic kidney disease (HCC); S/P AVR (aortic valve replacement) Allergies Active Allergy Reactions Criticality Noted Date Comments Cat Dander 09/25/2014 Dog Dander 09/25/2014 Dust 09/23/2015 Pollen 09/25/2014 Losartan Other (Please comment) 03/02/2021 Hyperkalemia Morphine Nausea/vomiting Low 12/13/2017 Ragweed 09/25/2014 documented as of this encounter (statuses as of 02/27/2023) Medications Medication Sig Dispensed Refills Start Date [...] Tablet by mouth every evening. 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 angina pectoris Place under the [...] as of this encounter (statuses as of 02/27/2023) Active Problems Problem Noted Date Diagnosed Date S/P aortic valve replacement 02/17/2023 Pulmonary nodule, left 02/17/2023 Aortic root [...] bypass graft 10/15/19 08 Coronary atherosclerosis of [place] coronary celina ry 10/15/2007 BPH without obstruction/lower urinary tract symp toms 09/08/2005 Other allergic rhinitis 02/28/2001 Overview: ICD-10 update of inactive term Hastings's esophagus with high grade dysplasia Overview: Hastings's esophagus: egd by Dr Grant () f/u EGD 2001- neg per pt Cyst of kidney, acquired Overview: followed at [place] documented as of this encounter (statuses as of 02/27/2023) Resolved Problems Problem Noted Date Diagnosed Date [...] 3.4 by CTA 08/09/2012 [facility] Other*[id number] 03/08/2011 05/24/2016 Shortness of breath 02/22/2011 12/09/19 [...] as of this encounter (statuses as of 02/27/2023) Immunizations Name Administration Dates Next Due COVID-19 mRNA, LNP-s, No Pre serve, 2-Dose Series (Moderna) 06/10/2020,05/13/2020 COVID-19, LNP-s, No Preserve , Adiel-sucrose, Ages 12+ ([employer]) 12/06/2021 COVID-19, mRNA, LNP-s, PF, B ooster, [...] on file documented as of this encounter Plan of Treatment Upcoming Encounters Date Type Department Care Team (Late st Contact Info) Description 03/15/2023 9:20 AM EST Office Visit Family Practice [address] [facility] [place] [address] [facility] [phone] Yan[facility] Canseco, [address] [facility] [address] 03/17/2023 10:30 AM EST Office Visit Gastroenterology, [facility] [address] [place] [address] Patricia Mejia CRNP [address] [facility] [place] [address] 04/12/2023 3:00 PM EST Office Visit Cardiology, [facility] [address] [facility] [place] [address] Bessy Gill PA-C [address] [facility] [place] [address] 06/30/2023 11:20 AM EDT Office Visit Nephrology, [facility] [address] [place] [address] Ryan Issa MD [address] [place] [address] 08/18/2023 3:00 PM EDT Office Visit Nephrology, [facility] [address] [place] [address] Ryan Issa MD [address] [place] [address] 08/22/2023 11:00 AM EDT Imaging Radiology [address] [facility] [place] [address] 02/27/2025 3:40 PM EST Office [place] [address] [place] [address] Laure Arias PA-C [address] [place] [address] [place] [address] Pending Results Name Type Priority Associated Diagnoses Date /Time CBC WITH WBC DIFFERENTIAL Lab Routine Stage 3b chronic kidney disease (HCC) 02/27/2023 12:10 PM EST RENAL FUNCTION PANEL Lab Routine Stage 3b chronic kidney disease (HCC) 02/27/2023 12:10 PM EST IRON SCREEN, INCLUDING TIBC Lab Routine Stage 3b chronic kidney disease (HCC) 02/27/2023 12:10 PM EST TSH WITH FREE T4 IF INDICATED Lab Routine S/P AVR (aortic valve replacement) 02/27/2023 12:10 PM EST CBC Lab Routine Stage 3b chronic kidney disease (HCC) 02/27/2023 12:10 PM EST DIFFERENTIAL, AUTOMATED Lab Routine Stage 3b chronic kidney disease (HCC) 02/27/2023 12:10 PM EST ALKALINE PHOSPHATASE Lab Routine S/P AVR (aortic valve replacement) 02/27/2023 12:10 PM EST PROTEIN Lab Routine S/P AVR (aortic valve replacement) 02/27/2023 12:10 PM EST AST Lab Routine S/P AVR (aortic valve replacement) 02/27/2023 12:10 PM EST ALT Lab Routine S/P AVR (aortic valve replacement) 02/27/2023 12:10 PM EST BILIRUBIN, DIRECT Lab Routine S/P AVR (aortic valve replacement) 02/27/2023 12:10 PM EST BILIRUBIN, TOTAL Lab Routine S/P AVR (aortic valve replacement) 02/27/2023 12:10 PM EST Health Maintenance Due Date Last Done Comments Hastings's Esophagus Surveilance 03/17/2019 03/17/2016, 04/29/2014, 03/23/2012, Additional history exists COVID-19 Vaccine ( season) 2022 04/19/2022, 12/06/2021, 02/24/2021, Additional history exists GFR 08/18/2023 02/17/2023, 10/15, 06/13/2022, Additional history exists Albumin/Creatinine Ratio 09/07/2023 023, 09/21/2021, 09/10/2013, Additional history exists TSH 10/26/2023 10/25/2022, 08/16, 05/27/2022, Additional history exists CKD PHOS USE SMARTSET 38171 12/14/202311/16, 10/11/2021, 03/18/2021, Additional history exists HbA1c 12/14/2023 12/13/2022, 08/16, 03/09/2022, Additional history exists CKD HGB USE SMARTSET 10627 02/18/202402/17, 02/17/2023, 10/25/2022, Additional history exists Depression Screening 02/24/2024 02/23/2023 DTaP,Tdap,and Td Vaccines (2 - Td or [...] Not on filedocumented as of this encounter Visit Diagnoses Diagnosis Abnormal kidney function Unspecified disorder of kidney and ureter Stage 3b chronic kidney disease (HCC) S/P AVR (aortic valve replacement) Heart valve replaced by other means documented in this encounter Care Teams Scalp Specialist Relationship Specialty Start Date End Date Yanick Canseco DO [address] [place] [place] [address] PCP - General Internal Medicine 04/07/22 documented as of this encounter
--- OUTSIDE RECORDS SUMMARY | 2023-03-04 16:27 | External Medical Summary ---
Author Name Unknown Address Unknown Organization [facility] [address] [place] [id number] Laboratory Report Ordering Provider Test Date Status [place]YAN [place] 02/27/2023 12:10:40 Final Observation Date Value Abnormality Reference (Units ) Status Bilirubin, Total 02/27/2023 12:10:40 0.4 <=1 .2 (mg/dL) Final Performing Location [facility] [address] [place] [address]
--- OUTSIDE RECORDS SUMMARY | 2023-03-04 16:27 | External Medical Summary ---
Author Name Unknown Address Unknown Organization [facility] [address] [place] [id number] Laboratory Report Ordering Provider Test Date Status BETHANIEESSIETHERESA 02/27/2023 12:10:40 Final Observation Date Value Abnormality Reference (Units ) Status Nucleated erythrocytes/100 leukocytes [Ratio] in Blood by Automated count 02/27/2023 12:10:40 Final Performing Location [facility] [place] [id number]
--- OUTSIDE RECORDS SUMMARY | 2023-03-04 16:27 | External Medical Summary | Summary of Care ---
Author Name Unknown Organization [facility] Address [address] [place] [address] Phone [phone] Care Team Providers Care Legislative Advocate Name Role Phone Yanick Canseco DO Primary Care Provider [phone] Reason for Referral * Evaluate & Treat - Unlimited Visits (Within 30 days (routine)) - Authorized Specialty Diagnoses / Procedures Referred By Jose rivero Referred To Contact CARDIAC REHAB / Cardiology Diagnoses S/P AVR (aortic valve replacement) Paroxysmal atrial fibrillation (HCC) Infrarenal abdominal 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 (HCC) HTN, goal below 140/90 Dyslipidemia, goal LDL below 70 Jem Davis PA-C [address] [place] [address] Referral ID Status Reason Start Date Expiration Date Visits Requested Visits Authorized [id number] Authorized Specialty Services Required 3 [phone] Question Answer Referral Priority Within 30 days (routine) Where should this appointment be scheduled? [facility] Cardiac Rehabilitation Modality No Preference, either is clinically appropriate Identify Cardiac Risk Low to Moderate Risk Comments S/p AVR at [facility] 02/07 Wishes to have Rehab at [facility] Reason for Visit * Reason Comments Follow Up 2 month follow up. R ecent Aorta procedure at . Doing well. Denies chest pain, palpitations, SOB, dizziness and edema. Encounter Details Date Type Department Care Team (Late st Contact Info) Description 02/27/2023 11:00 AM EST Office Visit Cardiology, [facility] [address] [place] [address] Jem Davis PA-C [address] [place] [address] S/P AVR (aortic valve replacement)*; Paroxysmal atrial fibrillation (HCC); Infrarenal abdominal 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 (HCC); HTN, GOAL BELOW 140/90; Dyslipidemia, goal LDL below 70 Allergies Active Allergy Reactions Criticality Noted Date [...] Tablet by mouth every evening. 0 Active [place]-3 Fatty Acids (ULTRA OMEGA 3) 952 MG [...] Sublingual Tablet Sublingual (Nitrostat)Indicat ions:Atheroscleros is of lime coronary artery of lime heart without angina pectoris Place under the [...] by mouth in the morning. 0 02/14/2023 3 Active documented as of this encounter (statuses [...] bypass graft 10/15/19 08 Coronary atherosclerosis of lime coronary celina ry 10/15/2007 BPH without obstruction/lower urinary tract symp toms 09/08/2005 Other allergic rhinitis 02/28/2001 Overview: ICD-10 update of inactive term Colbert's esophagus with high grade dysplasia Overview: Colbert's esophagus: egd by Dr Grant () f/u EGD 2001- neg per pt Cyst of kidney, acquired Overview: followed at [facility] documented as of this encounter (statuses as [...] 3.4 by CTA 08/09/2012 [facility] [facility] Other*[id number] 03/08/2011 05/24/2016 Shortness of breath 02/22/2011 12/09/19 Aortocoronary bypass status 02/22/2011 09/05/2017 Paroxysmal A-fib [...] LNP-s, No Preserve , Adiel-sucrose, Ages 12+ (Pf[employer]) 12/06/2021 COVID-19, mRNA, LNP-s, PF, B ooster, [...] Seasonal Influenza Virus Vac cine, Unspecified Formulation 12/21/2018,01/29/2018,01/18/2017,1004/2016,02/24/2016,01/06/2010,03/23/20 09,03/05/2008,02/13/2007,01/20/2006,1 06/01/2004,03/20/2003,04/03/2002,04/05,03/22/2000 Seasonal Influenza, Quadriva lent Hd [...] on file documented as of this encounter Last Filed Vital Signs Vital Sign Reading Time Taken Comments Blood Pressure 112/66 02/27/2023 11:11 AM EST Pulse 60 02/27/2023 11:11 AM EST Temperature - - Respiratory Rate 15 02/27/2023 11:11 AM EST Oxygen Saturation - - Inhaled Oxygen Concentration - - Weight 82.3 kg (181 lb 8 oz) 02/27/2023 11:11 AM EST Height - - Body Mass Index 25.14 02/23/2023 10:43 AM EST documented in this encounter Patient Instructions * Patient Instructions* Jem Davis PA-C - 02/27/2023 11:49 AM EST Finish bottle of Amiodarone and then stop. Blood work today Start cardiac rehab documented in this encounter Progress Notes * Jem Davis PA-C - 02/27/2023 11:06 AM EST 02/27/2023 Cardiology F/U: Chief Complaint: S/P AVR; history of coronary disease, atrial fibrillation SUBJECTIVE: Hubert Persaud is an 82 year old male here today for close cardiology f/u. Last clinic evaluation approx [address] Weiner. History includes: 1. Atherosclerotic coronary disease status post coronary bypass grafting x4 in September of 2007, receiving a GIFFORD graft to the LAD, a saphenous vein graft to the right coronary artery, a saphenous vein graft to the ramus intermedius, and a saphenous vein graft to the obtuse marginal. Repeat cath 01/2023 at [facility] demonstrating obstructive lime vessel disease with patent GIFFORD-LAD, SVG-Ramus, SVG-RCA. Occluded SVG-OM 2. Prior positive stress testing in 2010 with subsequent repeat cardiac catheterization demonstrating occlusion of the vein graft to the obtuse marginal. 3. Severe aortic insufficiency slowly progressive since 2012 S/P AVR (#29 Inspiris) on 02/07/23 with biatrial MAZE and ISAÍAS ligation 4. Moderate aortic root enlargement. 5. Hypertension. 6. Abdominal aortic ectasia. 7. Past history of atrial arrhythmias with chart documentation of paroxysmal atrial fibrillation in the remote past. Holter monitors demonstrating paroxysmal supraventricular tachycardia routinely 8. 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 FRANKLIN at that time negative for endocarditis with chronicaortic insufficiency once again documented. 9. Transient atrial fibrillation during acute hospitalization, 2018 initially treated with amiodarone with subsequent conversion to sinus rhythm 11. Chronic urinary retention on antibiotic suppressive therapy intermittent straight catheterization 12. Esophageal Barretts carcinoma status post esophagectomy 13. Atherosclerotic carotid disease, moderate bilateral Since last clinic evaluation patient underwent Redo sternotomy, AVR (#29 Inspiris), biatrial MAZE, ISAÍAS ligation on 02/07/23 at [facility]. Hospital records reviewed in detail. No major post op complications. Post op echo with preserved LVEF. Eliquis resumed on discharge. Was maintaining NSR per records. Amiodarone initiated on discharge for 30 days, with home dose carvedilol. Small right pleural effusion noted. Lasix 20 mg initiated on discharge for 7 days. Repeat chest xray at PCP last week with only trace right pleural effusion. Mild renal insufficiency noted post discharge. Now off lasix. Repeat labs requested today by nephrology Patient feeling well today. He reports improved energy and improved dyspnea since AVR. Incision healing well. No need for pain medications. Retained suture at drain site. No erythema or drainage. No chest pain, shortness of breath, palpitations, dizziness, syncope or near syncope. No orthopnea,PND, or increased lower extremity edema. No fever, chills, cough, hematochezia, melena, or hemoptysis. Review of Systems: See HPI for pertinent positives. All others negative, other than those noted in HPI. 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 HTN, GOAL BELOW 140/90 I10 Dyslipidemia, goal LDL below 70 E78.5 Sensorineural hearing loss (SNHL) of both ears H90.3 Mild obstructive sleep apnea G47.33 Neurogenic bladder N31.9 Paroxysmal atrial fibrillation (HCC) I48.0 Prediabetes R73.03 Asymptomatic bilateral carotid artery stenosis I65.23 Hypothyroidism due to acquired atrophy of thyroid E03.4 Hypertensive kidney disease with stage 3b chronic kidney disease (HCC) I12.9, N18.32 Severe aortic insufficiency I35.1 Adverse reaction to angiotensin 2 receptor antagonist T46.5X5A Persistent proteinuria R80.1 Infrarenal abdominal 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 (HCC) I71.43 Aortic root enlargement (HCC) I77.89 S/P aortic valve replacement Z95.2 Pulmonary nodule, left R91.1 Social History Tobacco Use Smoking status: Former Packs/day: 1.00 Years: 20.00 Additional pack years: 0.00 Total pack years: 20.00 Types: Cigarettes Quit date: 04/17/1982 Years since quittin.8 Passive exposure: Past Smokeless tobacco: Never Tobacco comments: no passive smoke Vaping Use Vaping Use: Never used Substance Use Topics Alcohol use: Not Currently Comment: rarely Drug use: No Past Surgical History: Procedure Laterality Date BYPASS GRAFT ANGIOGRAPHY W/LEFT HEART CATH 03/08/2011 BYPASS GRAFT ANGIOGRAPHY W/LEFT HEART CATH performed by RACHEL JACOB at [facility] CABG, ARTERIAL, FOUR OR MORE 09/21/2007 four vessel CAGB CARPAL TUNNEL SURGERY Right 03/2017 COLONOSCOPY 04/2006 CYSTOSCOPY 10/09/2017 done in office by Dr Chavez EGD, FLEXIBLE, DIAGNOSTIC 03/22/2012 UPPER GI ENDOSCOPY DIAGNOSTIC performed by Odalys Cárdenas MD at ENDOSCOPY [facility] EGD, FLEXIBLE, DIAGNOSTIC 03/23/2012 UPPER GI ENDOSCOPY DIAGNOSTIC performed by Odalys Cárdenas MD at ENDOSCOPY [facility] BX negative for Colbert's- repeat in 2 years EGD, FLEXIBLE, DIAGNOSTIC N/A 04/29/2014 Unremarkable post esophagectomy anatomy, without evidence of colbert's. repeat in 3 yrs/ESOPHAGOGASTRODUODENOSCOPY (EGD), FLEXIBLE, TRANSORAL, DIAGNOSTIC performed by Odalys Cárdenas MD at ENDOSCOPY [facility] EGD, FLEXIBLE, DIAGNOSTIC N/A 03/17/2016 normal bx/ESOPHAGOGASTRODUODENOSCOPY (EGD), FLEXIBLE, TRANSORAL, DIAGNOSTIC performed by Babatunde Carr MD at ENDOSCOPY [facility] EGD, FLEXIBLE, DIAGNOSTIC N/A 11/19/2019 small amount of retained bilious fluid of stomach, moderate edema and erythema of mucosa in stomach/retained food in stomach/biopsies normal/EGD/[facility] EGD, FLEXIBLE, W/BIOPSY 08/21/2007 No sx of Colbert's EGD, FLEXIBLE, W/BIOPSY 12/01/2009 done anastamosis and GE junction @ 20cm bx done--no eidence of Barretts IMPLANT MESH W/ ABD HERNIA REPR/DEBRIDE 12/2006 IMPLANT NEUROELECTRODES, SACRAL N/A 09/21/2022 INFORMATION 2002 Other Ventral hernia repair R lower abdomen NONE 2002 colonoscopy at [facility] OTHER 10/27/2005 excision of skin lesion from mid back (benign) Dr. Tang OTHER 07/2005 Esophagectomy removed 6" of esophagus REMOVAL OF PROSTATE, FIRST STAGE 1999 TURP REMOVE CATARACT, INSERT LENS PROSTH Right 10/08/2019 REMOVE CATARACT, INSERT LENS PROSTH Left 10/22/2019 Family History Problem Relation Age of Onset Cancer Grandfather (Maternal) Cancer of Liver Diabetes Father Stroke Mother Stroke Father Other (Other) Father Hemachromatosis Review of patient's allergies indicates: Allergen Reactions Cat Dander Dog Dander Dust Environmental [Pollen] Losartan Other (Please comment) Hyperkalemia Ragweed Morphine Nausea/vomiting Current Outpatient Medications Medication Sig Dispense Refill VITAMIN E 400 UNIT PO CAPS Take 1 Capsule by mouth. Wednesdays and Sundays ACETAMINOPHEN 500 MG PO TABS Two pills by mouth every 6 hours as needed for fever or pain GLUCOSAMINE CHONDROITIN COMPLX PO TABS Take 1 Tablet by mouth 2 times a day. Ascorbic Acid 1000 MG Oral Tablet Take 2 Tablets by mouth 2 times a day. Multiple Vitamin (MULTI VITAMIN) TABS Take 1 Tablet by mouth daily. Ultra preventative X aspirin enteric coated 81 MG TBEC Take 1 Tablet by mouth every evening. [place]-3 Fatty Acids (ULTRA OMEGA 3) 952 MG CAPS One tab twice daily (Patient taking differently: Take 1 Capsule by mouth 2 times a day.) 180 Cap 1 Coenzyme Q10 100 MG Oral Tablet Take 1 Tablet by mouth in the morning. DHEA 50 MG Oral Tablet Take 50 mg by mouth daily. Vitamin D 25 MCG (1000 UT) Oral Tablet Take 2 Tablets by mouth daily. Cranberry 500 MG Oral Capsule Take 420 mg by mouth in the morning. Allopurinol 100 MG Oral Tablet (Zyloprim) TAKE ONE TABLET BY MOUTH IN THE MORNING AND TAKE ONE TABLET BEFORE BEDTIME 200 Tablet 3 Atorvastatin Calcium 20 MG Oral Tablet (Lipitor) TAKE ONE TABLET BY MOUTH EVERY MORNING 100 Tablet 3 Catheters by Ureteral route 7 times a day. Uses 14 Caude catheters, self cath's 7 times daily Omeprazole 40 MG Oral Capsule Delayed Release (PriLOSEC) Take 1 Capsule by mouth in the morning. 100 Capsule 1 Apixaban 2.5 MG Oral Tablet (Eliquis) Take 1 Tablet by mouth in the morning and 1 Tablet before bedtime. 60 Tablet 5 Levothyroxine Sodium 150 MCG Oral Tablet (Levoxyl) TAKE ONE TABLET BY MOUTH EVERY MORNING AT LEAST 30 MINUTES PRIOR TO BREAKFAST OR OTHER MEDS 100 Tablet 1 Carvedilol 12.5 MG Oral Tablet (Coreg) TAKE TWO TABLETS BY MOUTH EVERY DAY IN THE MORNING AND TAKE ONE TABLET BY MOUTH EVERY DAY IN THE EVENING 300 Tablet 1 Cholestyramine 4 GM Oral Packet (Questran) Take 1 Packet by mouth in the morning. Mixed with liquid.. 90 Packet 1 Amiodarone HCl 200 MG Oral Tablet (Cordarone) Take 1 Tablet by mouth in the morning. Nitroglycerin 0.4 MG Sublingual Tablet Sublingual (Nitrostat) Place under the tongue 1 Tablet every5 minutes as needed for Pain, Chest. Maximum 3 doses. (Patient not taking: Reported on 02/27/2023) 25 Tablet 5 Nitrofurantoin Macrocrystal 50 MG Oral Capsule (Macrodantin) TAKE ONE CAPSULE BY MOUTH EVERY DAY WITH MEAL/FOOD 90 Capsule 3 No current facility-administered medications for this visit. OBJECTIVE/PHYSICAL EXAMINATION: BP 112/66 | Pulse 60 | Resp 15 | Wt 82.3 kg (181 lb 8 oz) | BMI 25.14 kg/m | BSA 2.03 m On my repeat 112/ General: no acute distress and stated age Head: normocephalic, no masses, lesions, tenderness or abnormalities Eyes: conjunctiva are pink and non-injected, sclera clear Throat: clear Nares: without discharge Neck: supple, no adenopathy, no bruits, normal jugular venous pulse, no hepatojugular reflux, no carotid bruits, brisk carotid upstroke Chest: sternotomy healing. No erythema or drainage. Small retained suture at drainage site (removed) Lungs: clear to auscultation and percussion Cardiac Exam: regular with II/ systolic murmur, there is no S3 gallop PMI is nondisplaced Abdomen: abdomen soft, non-tender, no abnormal masses, no hepatosplenomegaly, no abdominal bruit, no femoral bruit Musculoskeletal: no gait disturbance, no joint inflammation, no deforming arthritis Extremities: no edema, no cyanosis, pulses intact 3+/4 Neuro: grossly normal exam Cardiac studies/labs: EKG performed today and reviewed personally: Sinus bradycardia at [address]/T wave abnormality in inferolateral leads Similar to EKG post op from [facility] Echo report reviewed from 02/14/23 at [facility]: CONCLUSIONS: - Exam indication: Initial postoperative evaluation of prosthetic valve (baseline) - The left ventricle is normal in size. There is left ventricular hypertrophy. Left ventricular systolic function is normal. EF = 55 5% (2D biplane) - The right ventricle is normal in size. Right ventricular systolic function is low normal. - The left atrial cavity is severely dilated. - The right atrial cavity is dilated. - The visualized aorta is borderline dilated with a maximal dimension of 3.9 cm. - Trivial to 1+ MR. - There is 1+ TR. - Inspiris prosthetic aortic valve (size #29). There is no aortic valve regurgitation. The peak gradient is 13 mmHg, the mean gradient is 5 mmHg and the dimensionless valve index is 0.60. - Estimated right ventricular systolic pressure is likely underestimated due to a weak or incomplete tricuspid regurgitation signal and is, at least, 31 mmHg consistent with normal pulmonary artery pressures. Estimated right atrial pressure is 15 mmHg based on IVC assessment. - Exam was compared with the prior echocardiographic exam performed on 02/07/2023 [intraoperative FRANKLIN]. Interval aortic valve replacement. First postoperative TTE Abdominal US at [facility] dated 02/06/23: AORTA Abdominal aortic aneurysm measuring 3.58 x 3.56 cm at mid. Not visualized at the level of the renals due to bowel gas. Cardiac cath report reviewed from [facility] on 01/26/23: Impression: -Obstructive lime coronary artery disease as detailed above -Patent GIFFORD-LAD, SVG-Ramus, SVG-RCA -Occluded SVG-OM ASSESSMENT: 82 year old male S/P bioprosthetic AVR on 02/07/23 at [facility] CAD S/P CABG in 2007. Repeat cath Jan 2023 - patent GIFFORD-LAD, SVG-Ramus, SVG- RCA. Occluded SVG-OM. Med management recommended Previously persistent afib, now returned to NSR post op AVR. On amiodarone for 30 days. 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 Retained suture - removed PLAN: Patient seen/examined today in collaboration with Dr. Weiner. Retained sutures removed. No erythema or drainage noted from incision sites. Patient doing well post op AVR on 02/07/23 at [facility]. Previously reported small pleural effusions, were trace on recent xray. Appears euvolemic. Now off furosemide Having repeat labs today for nephrology Continue amiodarone for 30 days, as prescribed on discharge, then stop Continue carvedilol and Eliquis Recommend cardiac rehab. Patient agreeable. Referral to [facility] placed Lifting restrictions reviewed. No routine dental procedures for 6 months. Will need SBE prophylaxis I spent a total of 60 minutes on the date of service in preparation, delivery, and documentation ofthe care provided to Hubert Persaud excluding any time spent in the performance of separately billed services. The patient agrees to the above plan and will call with additional questions or concerns. ER with all emergencies advised. Follow-up: Return in about 6 weeks (around 04/10/2023). | Check-out note: Blood work today - ordered by Dr. Issa and Jiaro 6- 8 weeks Husam or Jairo Davsi PA-C Department of Cardiology This chart was completed in part utilizing [employer] Speech Voice Recognition Software. Grammatical errors, random word insertions, prounoun errors, and incomplete sentences are an occasional consequence of this system due to software limitations, ambient noise, and hardware issues. Any formal questions or concerns about the content, text, or information contained within the body of this dictation should be directly addressed to the provider for clarification. documented in this encounter Procedure Notes * Dheeraj Gutierrez DO - 02/27/2023 11:20 AM ESTAssociated Order(s): EKG REASON FOR STUDY: Afib CONCLUSIONS: Sinus bradycardia Nonspecific intraventricular conduction delay ST & T wave abnormality, consider inferolateral ischemia Abnormal ECG When compared with ECG of 17-FEB-2023 11:32, Minimal criteria for Septal infarct are no longer Present Inverted T waves have replaced nonspecific T wave abnormality in Inferior leads T wave inversion less evident in Lateral leads Ventricular Rate: 54 Atrial Rate: 54 UT Interval: 204 QRS Duration: 122 QT/QTc: 472/447 ms P-R-T [place]: 87 : 54 : -67 degrees documented in this encounter Nursing Notes * Jose C Merida LPN - 02/27/2023 11:11 AM EST Patient identified by full name and date of Chief Complaint Patient presents with Follow Up 2 month follow up. Recent Aorta procedure at . Doing well. Denies chest pain, palpitations, SOB, dizziness and edema. Examination Room: 1 Name: Hubert Persaud Date of : (1940). Reason for Visit: Follow up Interim Hospitalization(s): Denies Problems/Concerns: See chief complaint Chest Pain/SOB: Denies [facility] Discussed: Yes [facility] is a way you can talk to your provider online through e-mail. Would you like to sign up? I can activate it for you? ALREADY ACTIVE Patient was instructed to not get up on the exam table until directed and assisted by their provider; patient is to remain seated in the chair/ wheelchair/ exam table for fall prevention and safety reasons. Patient is aware to have assistance to step down off exam table with personnel. Patient voiced full comprehension of instructions. documented in this encounter Miscellaneous Notes * Addendum Note - Jem Davis PA-C - 02/27/2023 1:15 PM ESTAddended by: JEM DAVIS on: 02/27/2023 01:15 PM Modules accepted: Orders documented in this encounter Plan of Treatment Upcoming Encounters Date Type Department Care Team (Late st Contact Info) Description 03/15/2023 9:20 AM EST Office Visit Family Practice [address] [place] [address] [address] [place] [address] Yanick Canseco DO [address] [place] [address] 03/17/2023 10:30 AM EST Office Visit Gastroenterology, [facility] [address] [facility] [place] [address] Patricia Mejia CRNP [facility] [place] [address] 04/12/2023 3:00 PM EST Office Visit Cardiology, [facility] [place] [address] Jem [facility]-C [address] [facility] [place] [address] 06/30/2023 11:20 AM EDT Office Visit Nephrology, [facility] [address] [facility] [place] [address] Ryan Issa MD [address] [place] [address] 08/18/2023 3:00 PM EDT Office Visit Nephrology, [facility] [address] [facility] [address] [place] [address] Ryan Issa MD [address] [place] [address] 08/22/2023 11:00 AM EDT Imaging Radiology [address], [place] [address] [facility] [address] 02/27/2025 3:40 PM EST Office Visit Dermatology[address] [place] [address] Laure Arias PA-C [address] [place] [address] [place] [address] Pending Results Name Type Priority Associated Diagnoses Date /Time TSH WITH FREE T4 IF INDICATED Lab Routine S/P AVR (aortic valve replacement) 02/27/2023 12:10 PM EST Scheduled Orders Name Type Priority Associated Diagnoses Orde r Schedule TSH WITH FREE T4 IF INDICATED Lab Routine S/P AVR (aortic valve replacement) Expected: 02/27/2023, Expires: 02/28/2024 Scheduled Referrals Name Type Priority Associated Diagnoses Orde r Schedule CARDIAC REHAB REFERRAL OP Referral Within 30 days (routine) S/P AVR (aortic valve replacement) Paroxysmal atrial fibrillation (HCC) Infrarenal abdominal 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 (HCC) HTN, GOAL BELOW 140/90 Dyslipidemia, goal LDL below 70 Ordered: 02/27/2023 Health Maintenance Due Date Last Done Comments Colbert's Esophagus Surveilance 03/17/2019 03/17/2016, 04/29/2014, 03/23/2012, Additional history exists COVID-19 Vaccine ( season) 2022 04/19/2022, 12/06/2021, 02/24/2021, Additional history exists GFR 08/18/2023 02/17/2023, 10/15, 06/13/2022, Additional history exists Albumin/Creatinine Ratio 09/07/2023 023, 09/21/2021, 09/10/2013, Additional history exists TSH 10/26/2023 10/25/2022, 08/16, 05/27/2022, Additional history exists CKD PHOS USE SMARTSET 70300 12/14/202311/16, 10/11/2021, 03/18/2021, Additional history exists HbA1c 12/14/2023 12/13/2022, 08/16, 03/09/2022, Additional history exists CKD HGB USE SMARTSET 20274 02/18/202402/17, 02/17/2023, 10/25/2022, Additional history exists Depression [...] Not on filedocumented as of this encounter Procedures Procedure Name Priority Date/Time Associated Diagnosis Comments UT ECG ROUTINE ECG W/LEAST 12 LDS I&R ONLY Routine 02/27/2023 11:20 AM EST documented in this encounter Results * EKG (02/27/2023 11:20 AM EST) 02/27/2023 11:2 0 AM EST Narrative Procedure Note Dheeraj Gutierrez, - 02/27/2023 11:20 AM EST REASON FOR STUDY: Afib CONCLUSIONS: Sinus bradycardia Nonspecific intraventricular conduction delay ST & T wave abnormality, consider inferolateral ischemia Abnormal ECG When compared with ECG of 17-FEB-2023 11:32, Minimal criteria for Septal infarct are no longer Present Inverted T waves have replaced nonspecific T wave abnormality in Inferiorleads T wave inversion less evident in Lateral leads Ventricular Rate: 54 Atrial Rate: 54 UT Interval: 204 QRS Duration: 122 QT/QTc: 472/447 ms P-R-T [place]: 87 : 54 : -67 degrees Jem Davis PA-C EKG [facility] documented in this encounter Visit Diagnoses Diagnosis S/P AVR (aortic valve replacement)- Primary Heart valve replaced by other means Paroxysmal atrial fibrillation (HCC) Atrial fibrillation Infrarenal abdominal 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 (HCC) HTN, GOAL BELOW 140/90 Unspecified essential hypertension Dyslipidemia, goal LDL below 70 Other and unspecified hyperlipidemia documented in this encounter Care Teams Legislative Advocate Relationship Specialty Start Date End Date Yanick Canseco DO [address] [place] [address] PCP - General Internal Medicine 04/07/22 documented as of this encounter
--- OUTSIDE RECORDS SUMMARY | 2023-03-04 16:27 | External Medical Summary | Summary of Care ---
Author Name Unknown Organization [facility] Address [address] [place] [address] Phone [phone] Care Team Providers Care Commercial Driver Name Role Phone Yanick Canseco DO Primary Care Provider [phone] Reason for Visit * Reason Onset Date Comments Advice 03/02/2023 advise Encounter Details Date Type Department Care Team (Late st Contact Info) Description 03/02/2023 Telephone Family Practice [facility] [address] [place] [address] Yanick Canseco DO [address] [place] [address] Advice (advise) Allergies Active Allergy Reactions Criticality [...] Tablet by mouth every evening. 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 angina pectoris Place under the [...] bypass graft 10/15/19 08 Coronary atherosclerosis of [place] coronary celina ry 10/15/2007 BPH without obstruction/lower urinary tract symp toms 09/08/2005 Other allergic rhinitis 02/28/2001 Overview: ICD-10 update of inactive term Hastings's esophagus with high grade dysplasia Overview: Hastings's esophagus: egd by Dr Grant () f/u EGD 2001- neg per pt Cyst of kidney, acquired Overview: followed at [place] documented as of this encounter (statuses as [...] 3.4 by CTA 08/09/2012 [facility] [facility] [facility] Other*[id number] 03/08/2011 05/24/2016 Shortness of breath 02/22/2011 12/09/19 [...] LNP-s, No Preserve , Adiel-sucrose, Ages 12+ ([email or web address]) 12/06/2021 COVID-19, mRNA, LNP-s, PF, B ooster, [...] he recently had open hear surgery at [facility]. States the past three days he [...] with us. He can be reached at [phone]. documented in this encounter Plan of Treatment Upcoming Encounters Date Type Department Care Team (Late st Contact Info) Description 03/15/2023 9:20 AM EST Office Visit Family Practice [address], [place] 293 [facility] [place] [address] Yanick Canseco, 293 [place] [address] 03/17/2023 10:30 AM EST Office Visit Gastroenterology, [facility] 132 [facility] [place] [address] Patricia Mejia CRNP 132 [facility] [place] [address] 04/12/2023 3:00 PM EST Office Visit Cardiology, [facility] 132 [facility] [place] [address] Bessy Gill [facility]C [facility] [place] [address] 06/30/2023 11:20 AM EDT Office Visit Nephrology, [facility] [address] [place] [address] Ryan Issa MD [address] [place] [address] 08/18/2023 3:00 PM EDT [facility] [address] [place] [address] Ryan Issa MD [address] [place] [address] 08/22/2023 11:00 AM EDT Imaging Radiology [facility] 1st [facility] 132 [facility] [place] [address] 02/27/2025 3:40 PM EST [facility] [place] [address] Laure Arias, PATRICE [address] [place] [address] [place] [address] Health Maintenance Due Date Last Done Comments Hastings's Esophagus Surveilance 03/17/2019 03/17/2016, 04/29/2014, 03/23/2012, Additional history exists COVID-19 Vaccine ( season) 2022 04/19/2022, 12/06/2021, 02/24/2021, Additional history exists GFR 08/28/2023 02/27/2023, 06/2022, 10/25/2022, Additional history exists Albumin/Creatinine Ratio 09/07/2023 023, 09/21/2021, 09/10/2013, Additional history exists HbA1c 12/14/2023 12/13/2022, 08/16, 03/09/2022, Additional history exists Depression Screening 02/24/2024 02/23/2023 CKD HGB USE SMARTSET 85790 02/28/202402/27, 02/27/2023, 02/17/2023, Additional history exists CKD PHOS USE SMARTSET 41986 02/28/202402/15, 12/13/2022, 10/11/2021, Additional history exists TSH [...] filedocumented as of this encounter Care Teams Commercial Driver Relationship Specialty Start Date End Date Yanick Canseco DO [address] [place] [address] PCP - General Internal Medicine 04/07/22 documented as of this encounter
--- OUTSIDE RECORDS SUMMARY | 2023-03-04 16:27 | External Medical Summary ---
Author Name Unknown Address Unknown Organization [facility] [address] [place] [address] Laboratory Report Ordering Provider Test Date Status CULLEN CAPPS 03/02/2023 14:23:25 Final Observation Date Value Abnormality Reference (Units ) Status WBC, Total 03/02/2023 14:23:25 5.66 4.00-10.8 0 (K/uL) Final RBC 03/02/2023 14:23:25 3.27 4.50-5.25 (M/uL) Final Hemoglobin 03/02/2023 14:23:25 11.3 Below low normal 14 .0-16.8 (g/dL) Final HCT 03/02/2023 14:23:25 34.7 Below low normal 40. 0-48.4 (%) Final MCV 03/02/2023 14:23:25 106.1 82.0-99.5 (fL) Final MCH 03/02/2023 14:23:25 34.6 27.0-34.0 (pg) Final MCHC 03/02/2023 14:23:25 32.6 32.0-36.0 (g/dL) Final RDW 03/02/2023 14:23:25 14.0 11.5-15.5 (%) Final Platelets 03/02/2023 14:23:25 194 140-400 (K /uL) Final MPV 03/02/2023 14:23:25 11.0 6.6-11.1 ( fL) Final Performing Location [facility] [address] [place] [address]
--- OUTSIDE RECORDS SUMMARY | 2023-03-04 16:27 | External Medical Summary | Summary of Care ---
Author Name Unknown Organization [facility] Address [address] [place] [address] Phone [phone] Care Team Providers Care Exploitation Analyst Name Role Phone Yanick Canseco DO Primary Care Provider Encounter Details Date Type Department Care Team (Late st Contact Info) Description 01/26/2023 Result Scan Unspecified Department <No scans attached> Allergies Active Allergy Reactions Criticality Noted Date Comments Cat Dander 09/25/2014 Dog Dander 09/25/2014 Dust 09/23/2015 Pollen 09/25/2014 Losartan Other (Please comment) 03/02/2021 Hyperkalemia Morphine Nausea/vomiting Low 12/13/2017 Ragweed 09/25/2014 documented as of this encounter (statuses as of 02/28/2023) Medications Medication Sig Dispensed Refills Start Date [...] Tablet by mouth every evening. 0 Active [place]-3 Fatty Acids (ULTRA OMEGA 3) 952 MG [...] Sublingual Tablet Sublingual (Nitrostat)Indicat ions:Atheroscleros is of [place] coronary artery of [place] heart without angina pectoris Place under the [...] with liquid.. 90 Packet 1 01/23/2023 Active documented as of this encounter (statuses as of 02/28/2023) Active Problems Problem Noted Date Diagnosed Date [...] bypass graft 10/15/19 08 Coronary atherosclerosis of [place] coronary celina ry 10/15/2007 BPH without obstruction/lower urinary tract symp toms 09/08/2005 Other allergic rhinitis 02/28/2001 Overview: ICD-10 update of inactive term Hastings's esophagus with high grade dysplasia Overview: Hastings's esophagus: egd by Dr Grant () f/u EGD 2001- neg per pt Cyst of kidney, acquired Overview: followed at [place] documented as of this encounter (statuses as of 02/28/2023) Resolved Problems Problem Noted Date Diagnosed Date [...] 3.4 by CTA 08/09/2012 [facility] Other*[id number] 03/08/2011 05/24/2016 Shortness of breath 02/22/2011 08/24/20 17 Aortocoronary bypass status 02/22/2011 09/05/2017 Paroxysmal [...] as of this encounter (statuses as of 02/28/2023) Immunizations Name Administration Dates Next Due COVID-19 [...] (Prevnar) 12/11/2017,12/22/2015 Pneumococcal Polysaccharide PPV23 (Pneumovax) 06/10/2022,12/06/2012,01/20/2006 SEASONAL INFLUENZA, PF, 6 M & Above, [...] 9:20 AM EST Office Visit Family Practice [address] [place] [address] 293 [place] [address] Yanick Canseco DO 293 [place] [address] 03/17/2023 10:30 AM EST Office Visit Gastroenterology, [facility] 132 [facility] [place] [address] Patricia Mejia CRNP 132 [facility] [place] [address] 04/12/2023 3:00 PM EST Office Visit Cardiology, [facility] 132 [facility] [place] [address] Bessy Gill PA-C 132 [facility] [place] [address] 06/30/2023 11:20 AM EDT Office Visit Nephrology, [facility] 200 [facility] [place] [address] Ryan Issa MD [address] [place] [address] 08/18/2023 3:00 PM EDT Office Visit Nephrology, [facility] [address] [place] [address] Ryan Issa MD [address] [place] [address] 08/22/2023 11:00 AM EDT Imaging Radiology [facility] 1st [facility] [place] [address] [facility] [place] [address] 02/27/2025 3:40 PM EST Office Visit Dermatology[address] [place] [address] Laure Arias, [place] [address] [place] [address] [place] [address] Health Maintenance Due Date Last Done Comments Hastings's Esophagus Surveilance 03/17/2019 03/17/2016, 04/29/2014, 03/23/2012, Additional history exists COVID-19 Vaccine ( season) 2022 04/19/2022, 12/06/2021, 02/24/2021, Additional history exists GFR 08/28/2023 02/27/2023, 06/2022, 10/25/2022, Additional history exists Albumin/Creatinine Ratio 09/07/2023 023, 09/21/2021, 09/10/2013, Additional history exists HbA1c 12/14/2023 12/13/2022, 08/16, 03/09/2022, Additional history exists Depression Screening 02/24/2024 02/23/2023 CKD HGB USE SMARTSET 09067 02/28/202402/27, 02/27/2023, 02/17/2023, Additional history exists CKD PHOS USE SMARTSET 50319 02/28/202402/15, 12/13/2022, 10/11/2021, Additional history exists TSH [...] Procedure Name Priority Date/Time Associated Diagnosis Comments CARDIAC CATH SCANNED RESULT 01/26/2023 documented in this encounter Results * CARDIAC CATH SCANNED RESULT (01/26/2023) 01/26/2023 No Physician Data Unknown CARD CATH documented in this encounter Care Teams Exploitation Analyst Relationship Specialty Start Date End Date Yanick Canseco DO [address] [place] [address] PCP - General Internal Medicine 04/07/22 documented as of this encounter
--- OUTSIDE RECORDS SUMMARY | 2023-03-04 16:27 | External Medical Summary | Summary of Care ---
Author Name Unknown Organization [facility] Address [address] [facility] [address] Phone [phone] Care Team Providers Care Pantry Goods Worker Name Role Phone Yanick Canseco DO Primary Care Provider [phone] Reason for Visit * Reason Onset Date Comments Test Results 02/28/2023 Encounter Details Date Type Department Care Team (Late st Contact Info) Description 02/28/2023 Telephone Nephrology, [facility] [place] 200 [facility] [place] [address] Ryan Issa MD 200 [facility] [place] [address] Test Results Allergies Active Allergy Reactions Criticality Noted Date [...] Tablet by mouth every evening. 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 Place under the [...] bypass graft 10/15/19 08 Coronary atherosclerosis of [place] coronary celina ry 10/15/2007 BPH without obstruction/lower urinary tract symp toms 09/08/2005 Other allergic rhinitis 02/28/2001 Overview: ICD-10 update of inactive term Hastings's esophagus with high grade dysplasia Overview: Hastings's esophagus: egd by Dr Grant () f/u EGD 2001- per pt Cyst of kidney, acquired Overview: followed at [place] documented as of this encounter (statuses as [...] 3.4 by CTA 08/09/2012 [facility] [facility] [facility] Other*[id number] 03/08/2011 05/24/2016 Shortness of breath 02/22/2011 12/09/19 [...] encounter Miscellaneous Notes * Telephone Encounter - Candie López RN - 02/28/2023 1:15 PM EST TE with pt regarding stable lab results. * Telephone Encounter - Candie López RN - 02/28/2023 1:15 PM EST ----- Message from Ryan Issa MD sent at 02/28/2023 1:00 PM EST ----- Kidney function is better and sodium is also better. Continue same. Hemoglobin is stable documented in this encounter Plan of Treatment Upcoming Encounters Date Type Department Care Team (Late st Contact Info) Description 03/15/2023 9:20 AM EST Office Visit Family Practice [address], [place] 293 [place] [address] Yanick Canseco, 293 [place] [address] 03/17/2023 10:30 AM EST Office Visit Gastroenterology, [facility] 132 [facility] [place] [address] Patricia Mejia CRNP 132 [facility] [place] [address] 04/12/2023 3:00 PM EST Office Visit Cardiology, [facility] 132 [facility] [place] [address] Bessy Gill [facility]C [facility] [address] 06/30/2023 11:20 AM EDT [facility] [address] [place] [address] Ryan Issa MD [address] [place] [address] 08/18/2023 3:00 PM EDT Office Visit Nephrology, [place] [place] [address] [place] [address] Ryan Issa MD [address] [place] [address] 08/22/2023 11:00 AM EDT Imaging Radiology [facility] 1st [facility] 132 [facility] [place] [address] 02/27/2025 3:40 PM EST Office Visit Dermatology, [place] [address] [place] [address] Laure Arias, PATRICE [address] [place] [address] [place] [address] Health Maintenance Due Date Last Done Comments Hastings's Esophagus Surveilance 03/17/2019 03/17/2016, 04/29/2014, 03/23/2012, Additional history exists COVID-19 Vaccine ( season) 2022 04/19/2022, 12/06/2021, 02/24/2021, Additional history exists GFR 08/28/2023 02/27/2023, 06/2022, 10/25/2022, Additional history exists Albumin/Creatinine Ratio 09/07/2023 023, 09/21/2021, 09/10/2013, Additional history exists HbA1c 12/14/2023 12/13/2022, 08/16, 03/09/2022, Additional history exists Depression Screening 02/24/2024 02/23/2023 CKD HGB USE SMARTSET 23122 02/28/202402/27, 02/27/2023, 02/17/2023, Additional history exists CKD PHOS USE SMARTSET 14297 02/28/202402/15, 12/13/2022, 10/11/2021, Additional history exists TSH [...] filedocumented as of this encounter Care Teams Pantry Goods Worker Relationship Specialty Start Date End Date Yanick Casneco DO [address] [place] [address] PCP - General Internal Medicine 04/07/22 documented as of this encounter
--- OUTSIDE RECORDS SUMMARY | 2023-03-04 16:27 | External Medical Summary ---
Author Name Unknown Address Unknown Organization [facility] [address] [place] [address] Laboratory Report Ordering Provider Test Date Status CULLEN CAPPS 03/02/2023 14:23:25 Final Observation Date Value Abnormality Reference (Units ) Status SYNC LEUKOCYTES IN BLOOD BY AUTOMATED COUNT 03/02/2023 14:23:25 5.66 4.00-10.80 (K/uL) Final Neutrophils/100 leukocytes in Blood by Manual count 03/02/2023 14:23:25 88.0 Above high normal 40.0-75.0 (%) Final Lymphocytes/100 leukocytes in Blood by Manual count 03/02/2023 14:23:25 7.0 Below low normal 18.0-42.0 (%) Final Monocytes/100 leukocytes in Blood by Manual count 03/02/2023 14:23:25 5.0 1.0-11.0 (%) Final Neutrophils [#/volume] in Blood by Manual count 03/02/2023 14:23:25 4.98 1.80-7.70 (K/uL) Final Lymphocytes [#/volume] in Blood by Manual count 03/02/2023 14:23:25 0.40 Below low normal 1.00-4.80 (K/uL) Final Monocytes [#/volume] in Blood by Manual count 03/02/2023 14:23:25 0.28 0.00-1.10 (K/uL) Final Nucleated erythrocytes/100 leukocytes [Ratio] in Blood by Automated count 03/02/2023 14:23:25 Final Performing Location [facility] [address] [place] [address]
--- OUTSIDE RECORDS SUMMARY | 2023-03-04 16:27 | External Medical Summary | Summary of Care ---
Author Name Unknown Organization [facility] Address [address] [place] [address] Phone [phone] Care Team Providers Care Media Executive Name Role Phone Yanick Canseco DO Primary Care Provider [phone] Encounter Details Date Type Department Care Team (Late st Contact Info) Description 02/14/2023 Result Scan Unspecified Department <No scans attached> [...] Tablet by mouth every evening. 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 Place under the [...] bypass graft 10/15/19 08 Coronary atherosclerosis of [place] coronary celina ry 10/15/2007 BPH without obstruction/lower urinary tract symp toms 09/08/2005 Other allergic rhinitis 02/28/2001 Overview: ICD-10 update of inactive term Hastings's esophagus with high grade dysplasia Overview: Hastings's esophagus: egd by Dr Grant () f/u EGD 2001- neg per pt Cyst of kidney, acquired Overview: followed at [place] documented as of this encounter (statuses as [...] 3.4 by CTA 08/09/2012 [facility] [facility] Other*[id number] 03/08/2011 05/24/2016 Shortness of breath 02/22/2011 08/24/20 [...] 9:20 AM EST Office Visit Family Practice [address] [place] [address] 293 [place] [address] Yanick Canseco DO 293 [place] [address] 03/17/2023 10:30 AM EST Office Visit Gastroenterology, [facility] 132 [facility] [place] [address] Patricia Mejia CRNP 132 [facility] [place] [address] 04/12/2023 3:00 PM EST Office Visit Cardiology, [facility] 132 [facility] [place] [address] Bessy Gill PA-C 132 [facility] [place] [address] 06/30/2023 11:20 AM EDT Office Visit Nephrology, [facility] 200 [facility] [place] [address] Ryan Issa MD [address] [place] [address] 08/18/2023 3:00 PM EDT Office Visit Nephrology, [facility] [address] [place] [address] Ryan Issa MD [address] [place] [address] 08/22/2023 11:00 AM EDT Imaging Radiology [facility] 1st [facility] [place] [address] [facility] [place] [address] 02/27/2025 3:40 PM EST Office Visit Dermatology[address] [place] [address] Laure Arias, [place] [address] [place] [address] [place] [address] Health Maintenance Due Date Last Done Comments Hastings's Esophagus Surveilance 03/17/2019 03/17/2016, 04/29/2014, 03/23/2012, Additional history exists COVID-19 Vaccine ( season) 2022 04/19/2022, 12/06/2021, 02/24/2021, Additional history exists GFR 08/28/2023 02/27/2023, 06/2022, 10/25/2022, Additional history exists Albumin/Creatinine Ratio 09/07/2023 023, 09/21/2021, 09/10/2013, Additional history exists HbA1c 12/14/2023 12/13/2022, 08/16, 03/09/2022, Additional history exists Depression Screening 02/24/2024 02/23/2023 CKD HGB USE SMARTSET 78768 02/28/202402/27, 02/27/2023, 02/17/2023, Additional history exists CKD PHOS USE SMARTSET 32633 02/28/202402/15, 12/13/2022, 10/11/2021, Additional history exists TSH [...] Procedure Name Priority Date/Time Associated Diagnosis Comments ECHOCARDIOLOGY SCANNED RESULT 02/14/2023 documented in this encounter Results * ECHOCARDIOLOGY SCANNED RESULT (02/14/2023) 02/14/2023 No Physician Data Unknown ECHOCARDIOLOGY documented in this encounter Care Teams Media Executive Relationship Specialty Start Date End Date Yanick Canseco DO [address] [facility] [place] [facility] [address] PCP - General Internal Medicine 04/07/22 documented as of this encounter
--- OUTSIDE RECORDS SUMMARY | 2023-03-04 16:27 | External Medical Summary ---
Author Name Unknown Address Unknown Organization [facility] [address] [place] [address] Laboratory Report Ordering Provider Test Date Status RYAN PARISH 02/27/2023 12:10:40 Final Observation Date Value Abnormality Reference (Units ) Status Alk Phos 02/27/2023 12:10:40 79 35-130 (U/ L) Final Performing Location [facility] [address] [place] [address]
--- OUTSIDE RECORDS SUMMARY | 2023-03-04 16:27 | External Medical Summary | Summary of Care ---
Author Name Unknown Organization [facility] Address [address] [place] [address] Phone [phone] Care Team Providers Care Electrical Integrator Name Role Phone Yanick Canseco DO Primary Care Provider [phone] Encounter Details Date Type Department Care Team (Late st Contact Info) Description 02/28/2023 Orders Only Family Practice 65 [facility] 293 [place] [address] Yanick Canseco DO 293 [place] [address] Allergies Active Allergy Reactions Criticality Noted Date [...] Tablet by mouth every evening. 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 Place under the [...] bypass graft 10/15/19 08 Coronary atherosclerosis of [place] coronary celina ry 10/15/2007 BPH without obstruction/lower urinary tract symp toms 09/08/2005 Other allergic rhinitis 02/28/2001 Overview: ICD-10 update of inactive term Hastings's esophagus with high grade dysplasia Overview: Hastings's esophagus: egd by Dr Grant () f/u EGD 2001- per pt Cyst of kidney, acquired Overview: followed at [place] documented as of this encounter (statuses as [...] 3.4 by CTA 08/09/2012 [employer] Other*[id number] 03/08/2011 05/24/2016 Shortness of breath 02/22/2011 12/09/19 [...] AM EST Office Visit Family Practice 65 [facility] [place] 293 [place] [address] Yanick Canseco, 293 [facility] [address] 03/17/2023 10:30 AM EST Office Visit Gastroenterology, [facility] [address] [place] [address] Patricia Mejia CRNP 132 [facility] [place] [address] 04/12/2023 3:00 PM EST Office Visit Cardiology, [facility] 132 [facility] [place] [address] Bessy Gill PA-C 132 [facility] [place] [address] 06/30/2023 11:20 AM EDT Office Visit Nephrology, [facility] [address] [place] [address] Ryan Issa MD [address] [place] [address] 08/18/2023 3:00 PM EDT Office Visit Nephrology, [facility] [address] [place] [address] Ryan Issa MD [address] [place] [address] 08/22/2023 11:00 AM EDT Imaging Radiology [facility] 1st [facility] 132 [facility] [place] [address] 02/27/2025 3:40 PM EST Office Visit [address] [address] Laure Arias PA-C [address] [place] [address] [place] [address] Health Maintenance Due Date Last Done Comments Hastings's Esophagus Surveilance 03/17/2019 03/17/2016, 04/29/2014, 03/23/2012, Additional history exists COVID-19 Vaccine ( season) 2022 04/19/2022, 12/06/2021, 02/24/2021, Additional history exists GFR 08/28/2023 02/27/2023, 1106/2022, 10/25/2022, Additional history exists Albumin/Creatinine Ratio 09/07/2023 023, 09/21/2021, 09/10/2013, Additional history exists HbA1c 12/14/2023 12/13/2022, 08/16, 03/09/2022, Additional history exists Depression Screening 02/24/2024 02/23/2023 CKD HGB USE SMARTSET 36472 02/28/202402/27, 02/27/2023, 02/17/2023, Additional history exists CKD PHOS USE SMARTSET 48454 02/28/202402/15, 12/13/2022, 10/11/2021, Additional history exists TSH [...] Procedure Name Priority Date/Time Associated Diagnosis Comments VASC DUPLEX AORTA, IVC, ILIAC- COMP Routine 02/06/2023 documented in this encounter Results * VASC DUPLEX AORTA, IVC, ILIAC- COMP (02/06/2023) Anatomical Region Laterality Modality Abdomen, Vascular Other 02/06/2023 History Per Patient RAD VASCULAR documented in this encounter Care Teams Electrical Integrator Relationship Specialty Start Date End Date Yanick Canseco DO [address] [place] [address] PCP - General Internal Medicine 04/07/22 documented as of this encounter
--- OUTSIDE RECORDS SUMMARY | 2023-03-04 16:27 | External Medical Summary ---
Author Name Unknown Address Unknown Organization K0G:[facility] [address] [place] [address] Laboratory Report Ordering Provider Test Date Status CULLEN CAPPS 03/02/2023 14:23:25 Final Observation Date Value Abnormality Reference (Units ) Status BUN 03/02/2023 14:23:25 18 6-20 (mg/dL) Final Creatinine 03/02/2023 14:23:25 1.4 Above high normal 0.6-1.2 (mg/dL) Final Glomerular filtration rate/1.73 sq M.predicted [Volume Rate/Area] in Serum, Plasma or Blood by Creatinine-based formula (CKD-EPI) 03/02/2023 14:23:25 49 Below low normal >=60 (mL/min) Final eGFR is calculated based on the CKD-EPI 2020 equation SODIUM 03/02/2023 14:23:25 133 Below low normal 135 -146 (mmol/L) Final Potassium 03/02/2023 14:23:25 4.5 3.5-5.1 (m mol/L) Final Cl 03/02/2023 14:23:25 98 98-107 (mm ol/L) Final CO2 03/02/2023 14:23:25 28 22-32 (mmo l/L) Final Anion gap 03/02/2023 14:23:25 7 7-15 (mmol /L) Final Glucose 03/02/2023 14:23:25 145 Above high normal 70 -120 (mg/dL) Final Albumin 03/02/2023 14:23:25 3.2 Below low normal 3.8 -5.0 (g/dL) Final AST (Aspartate aminotransferase) 03/02/2023 14:23:25 19 10-50 (U/L) Fin al Alk Phos 03/02/2023 14:23:25 65 35-130 (U/ L) Final Bilirubin, Total 03/02/2023 14:23:25 0.6 <=1 .2 (mg/dL) Final Calcium 03/02/2023 14:23:25 9.1 8.4-10.2 ( mg/dL) Final Protein 03/02/2023 14:23:25 6.3 6.0-8.3 (g /dL) Final ALT (Alanine aminotransferase) 03/02/2023 14:23:25 <5 Below low normal 10-50 (U/L) Final Performing Location [facility] [place] [address] [facility] [address]
--- OUTSIDE RECORDS SUMMARY | 2023-03-04 16:27 | External Medical Summary ---
Author Name Unknown Address Unknown Organization K01[place] [place] [address] [place] [address] Laboratory Report Ordering Provider Test Date Status RYAN PARISH 02/27/2023 12:10:40 Final Observation Date Value Abnormality Reference (Units ) Status TSH 02/27/2023 12:10:40 7.91 Above high normal 0. 27-4.20 (uIU/mL) Final Performing Location [facility] [place] [address] [place] [address]
--- OUTSIDE RECORDS SUMMARY | 2023-03-04 16:27 | External Medical Summary ---
Author Name Unknown Address Unknown Organization [facility] [address] [place] [address] Laboratory Report Ordering Provider Test Date Status RYAN PARISH 02/27/2023 12:10:40 Final Observation Date Value Abnormality Reference (Units ) Status Bilirubin, Direct 02/27/2023 12:10:40 <0.2 0. 0-0.3 (mg/dL) Final Performing Location [facility] [place] [address]
--- OUTSIDE RECORDS SUMMARY | 2023-03-04 16:27 | External Medical Summary ---
Author Name Unknown Address Unknown Organization K0G:[facility] [place] [place] [address] [place] [address] Laboratory Report Ordering Provider Test Date Status RYAN PARISH 02/27/2023 12:10:40 Final Observation Date Value Abnormality Reference (Units ) Status ALT (Alanine aminotransferase) 02/27/2023 12:10:40 9 Below low normal 10-50 (U/L) Final Performing Location [facility] [address] [place] [address]
--- OUTSIDE RECORDS SUMMARY | 2023-03-04 16:27 | External Medical Summary | Summary of Care ---
Author Name Unknown Organization [facility] Address [address] [place] [address] Phone [phone] Care Team Providers Care Car Inspector Name Role Phone Yanick Canseco DO Primary Care Provider [phone] Reason for Referral * Evaluate & Treat [...] 70 Jem Davis PA-C [address] [place] [address] Referral ID Status Reason Start Date Expiration Date Visits Requested Visits Authorized [id number] Authorized Specialty Services Required 3 [phone] Question Answer Referral Priority Within 30 days (routine) Where should this appointment be scheduled? [facility] Cardiac Rehabilitation Modality No Preference, either is clinically appropriate Identify Cardiac Risk Low to Moderate Risk Comments [facility]07 Wishes to have Rehab at [facility] Reason for Visit * Reason Comments Follow Up 2 month follow up. R ecent Aorta procedure at . Doing well. Denies chest pain, palpitations, SOB, dizziness and edema. Encounter Details Date Type Department Care Team (Late st Contact Info) Description 02/27/2023 11:00 AM EST Office Visit Cardiology, [facility] [address] [place] [address] Jem Davis PA-C [address] [place] [address] S/P AVR (aortic valve replacement)*; Paroxysmal atrial [...] Tablet by mouth every evening. 0 Active Biggers-3 Fatty Acids (ULTRA OMEGA 3) 952 MG [...] Sublingual Tablet Sublingual (Nitrostat)Indicat ions:Atheroscleros is of [place] coronary artery of [place] heart without angina pectoris Place under the [...] bypass graft 10/15/19 08 Coronary atherosclerosis of [place] coronary celina ry 10/15/2007 BPH without obstruction/lower urinary tract symp toms 09/08/2005 Other allergic rhinitis 02/28/2001 Overview: ICD-10 update of inactive term Colbert's esophagus with high grade dysplasia Overview: Colbert's esophagus: egd by Dr rGant () f/u EGD 2001- neg per pt Cyst of kidney, acquired Overview: followed at [place] documented as of this encounter (statuses as [...] 3.4 by CTA 08/09/2012 [facility] Other*[id number] 03/08/2011 05/24/2016 Shortness of breath 02/22/2011 12/09/19 [...] the obtuse marginal. Repeat cath 01/2023 at [facility] demonstrating obstructive [place] vessel disease with patent GIFFORD-LAD, SVG-Ramus, SVG-RCA. [...] with chart documentation of paroxysmal atrial fibrillation inthe remote past. Holter monitors demonstrating paroxysmal supraventricular [...] biatrial MAZE, ISAÍAS ligation on 02/07/[address] [facility]. Hospital records reviewed in detail. No [...] artery bypass graft Z95.1 Coronary atherosclerosis of [place] coronary artery I25.10 Gouty arthropathy M10.9 Disc [...] performed by RACHEL JACOB at [facility] [place] CABG, ARTERIAL, FOUR OR MORE 09/21/2007 four vessel CAGB CARPAL TUNNEL SURGERY Right 03/2017 COLONOSCOPY 04/2006 CYSTOSCOPY 10/09/2017 done in office by Dr Chavez EGD, FLEXIBLE, DIAGNOSTIC 03/22/2012 UPPER GI ENDOSCOPY DIAGNOSTIC performed by Odalys Cárdenas MD at [facility] EGD, FLEXIBLE, DIAGNOSTIC 03/23/2012 UPPER GI ENDOSCOPY DIAGNOSTIC performed by Odalys Cárdenas MD at ENDOSCOPY [facility] BX negative for Colbert's- repeat in 2 years EGD, FLEXIBLE, DIAGNOSTIC N/A 04/29/2014 Unremarkable post esophagectomy anatomy, without evidence of colbert's. repeat in 3 yrs/ESOPHAGOGASTRODUODENOSCOPY (EGD), FLEXIBLE, TRANSORAL, DIAGNOSTIC performed by Odalys Cárdenas MD at ENDOSCOPY [facility] EGD, FLEXIBLE, DIAGNOSTIC N/A 03/17/2016 normal bx/ESOPHAGOGASTRODUODENOSCOPY (EGD), FLEXIBLE, TRANSORAL, DIAGNOSTIC performed by Babatunde Carr MD at ENDOSCOPY [facility] EGD, FLEXIBLE, DIAGNOSTIC N/A 11/19/2019 small amount of retained bilious fluid of stomach, moderate edema and erythema of mucosa in stomach/retained food in stomach/biopsies normal/EGD/[facility] EGD, FLEXIBLE, W/BIOPSY 08/21/2007 No sx of Colbert's EGD, FLEXIBLE, W/BIOPSY 12/01/2009 done anastamosis and GE junction @ 20cm bx done--no eidence of Barretts IMPLANT MESH W/ ABD HERNIA REPR/DEBRIDE 12/2006 IMPLANT NEUROELECTRODES, SACRAL N/A 09/21/2022 INFORMATION 2002 Other Ventral hernia repair R lower abdomen NONE 2002 colonoscopy at [facility] OTHER 10/27/2005 excision of skin lesion [...] Take 1 Tablet by mouth every evening. Biggers-3 Fatty Acids (ULTRA OMEGA 3) 952 MG [...] leads Similar to EKG post op from [facility] Echo report reviewed from 02/14/23 at [facility]: CONCLUSIONS: - Exam indication: Initial postoperative [...] replacement. First postoperative TTE Abdominal [facility] 02/06/23: AORTA Abdominal aortic aneurysm measuring 3.58 x 3.56 cm at mid. Not visualized at the level of the renals due to bowel gas. Cardiac cath report reviewed from [facility] on 01/26/23: Impression: -Obstructive k[place]ock coronary artery disease as detailed above -Patent GIFFORD-LAD, SVG-Ramus, SVG-RCA -Occluded SVG-OM ASSESSMENT: 82 year old male S/P bioprosthetic AVR on 02/07/23 at [facility] CAD S/P CABG in 2007. Repeat [...] well post op AVR on 02/07/[address] [facility]. Previously reported small pleural effusions, were trace on recent xray. Appears euvolemic. Now off furosemide Having repeat labs today for nephrology Continue amiodarone for 30 days, as prescribed on discharge, then stop Continue carvedilol and Eliquis Recommend cardiac rehab. Patient agreeable. Referral to [facility] placed Lifting restrictions reviewed. No routine dental [...] today - ordered by Dr. Issa and Jairo 6- 8 weeks Husam or Jairo Davis PA-C Department of Cardiology This chart was completed in part utilizing [employer] Speech Voice Recognition Software. Grammatical errors, random word insertions, prounoun errors, and incomplete sentences are an occasional consequence of this system due to software limitations, ambient noise, and hardware issues. Any formal questions or concerns about the content, text, or information contained within the body of this dictation should be directly addressed to the provider for clarification. documented in this encounter Nursing Notes * [...] AM EST Office Visit Family Practice [address] [facility] [place] [address] [facility] [place] [address] Yanick Canseco DO [address] [place] [address] 03/17/2023 10:30 AM EST Office Visit Gastroenterology, [facility] [address] [facility] [place] [address] Patricia Mejia CRNP [address] [facility] [place] [address] 04/12/2023 3:00 PM EST Office Visit Cardiology, [facility] [address] [facility] [place] [address] Jem Davis PA-C [address] [facility] [place] [address] 06/30/2023 11:20 AM EDT Office Visit Nephrology, [facility] [address] [place] [address] Ryan Issa MD [address] [place] [address] 08/18/2023 3:00 PM EDT Office Visit [facility] [address] [place] [address] [address] Ryan Issa MD [address] [place] [address] 08/22/2023 11:00 AM EDT Imaging Radiology [facility] [address] [facility] [place] [address] 02/27/2025 3:40 PM EST [address] [address] Laure Arias PA-C [address] [place] [address] [place] [address] Pending Results Name Type Priority Associated Diagnoses Date /Time TSH WITH FREE T4 IF INDICATED Lab Routine S/P AVR (aortic valve replacement) 02/27/2023 12:10 PM EST Scheduled Orders Name Type Priority Associated Diagnoses Orde r Schedule EKG EKG Routine Ordered: 02/27 TSH WITH FREE T4 IF INDICATED Lab [...] Additional history exists CKD PHOS USE SMARTSET 49711 12/14/202311/16, 10/11/2021, 03/18/2021, Additional history exists HbA1c 12/14/2023 12/13/2022, 08/16, 03/09/2022, Additional history exists CKD HGB USE SMARTSET 98361 02/18/202402/17, 02/17/2023, 10/25/2022, Additional history exists Depression [...] as of this encounter Visit Diagnoses Diagnosis S/P AVR (aortic valve replacement)- Primary Heart valve replaced by other means Paroxysmal atrial fibrillation (HCC) Atrial fibrillation Infrarenal abdominal 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 (HCC) HTN, GOAL BELOW 140/90 Unspecified essential hypertension Dyslipidemia, goal LDL below 70 Other and unspecified hyperlipidemia documented in this encounter Care Teams Car Inspector Relationship Specialty Start Date End Date Yanick Canseco DO [address] [facility] [place] [address] PCP - General Internal Medicine 04/07/22 documented as of this encounter
--- OUTSIDE RECORDS SUMMARY | 2023-03-04 16:27 | External Medical Summary | Summary of Care ---
Author Name Unknown Organization [facility] Address [address] [facility] [place] [address] Phone [phone] Care Team Providers Care Signals Collector/Analyst Name Role Phone Génesis Canseco DO Primary Care Provider [phone] Reason for Visit * Reason Comments Follow Up 1 year for full skin exam, no new concerns Encounter Details Date Type Department Care Team (Late st Contact Info) Description 02/23/2023 3:40 PM EST Office Visit Dermatology[address] [address] Laure Arias PA-C [address] [place] [address] [place] [address] Multiple nevi*; Seborrheic keratosis; Skin exam, screening for cancer; Lentigines Allergies Active Allergy Reactions Criticality Noted Date [...] Ascorbic Acid 1000 MG Oral Tablet Take 1 Tablet by mouth 2 times a day. 0 09/27/2016 Active Multiple Vitamin (MULTI VITAMIN) TABS Take 1 Tablet by mouth daily. Ultra preventative X 0 02/09/2017 Active aspirin enteric coated 81 MG TBEC Take 1 Tablet by mouth every evening. 0 Active [place]-3 Fatty Acids (ULTRA OMEGA 3) 952 MG CAPSIndications:Dys lipidemia, goal LDL below 100 One tab twice daily 180 Cap 1 04/19/2018 Active Additional Information Patient taking differently: 1 Capsule Oral BID(Non-Specified), (No instructions reported), Reported on 02/17/2023 Coenzyme Q10 100 MG Oral Tablet Take 1 Tablet by mouth in the morning. 0 Active DHEA 50 MG Oral Tablet Take 50 mg by mouth daily. 0 Active Nitroglycerin 0.4 MG Sublingual Tablet Sublingual (Nitrostat)Indicati ons:Atherosclerosis of crow coronary artery of crow heart without angina pectoris Place under the tongue 1 Tablet every 5 minutes as needed for Pain, Chest. Maximum 3 doses. 25 Tablet 5 09/07/2021 Active Vitamin D 25 MCG (1000 UT) Oral Tablet Take 2 Tablets by mouth daily. 0 09/07/2021 Active Cranberry 500 MG Oral Capsule Take 1 Capsule by mouth in the morning. 0 04/19/2022 Active Allopurinol 100 MG Oral Tablet (Zyloprim)Indicatio ns:Gouty arthropathy TAKE ONE TABLET BY MOUTH IN [...] Omeprazole 40 MG Oral Capsule Delayed Release (PriLOSEC)Indicatio ns:History of esophageal cancer Take 1 Capsule by [...] 12/08/2022 Active Carvedilol 12.5 MG Oral Tablet (Coreg)Indications: Atrial fibrillation with RVR (HCC) TAKE TWO TABLETS [...] in the morning. 0 02/14/2023 3 Active Abrysvo 120 MCG/0.5ML Intramuscular Solution Reconstituted (RSV Pre-Fusion F A&B Vac Rcmb)Indications:Ne ed for RSV immunization Inject 0.5 mL into a large muscle once for 1 dose. 1 Each 0 02/23/2023 3 documented as of this encounter (statuses as [...] bypass graft 10/15/19 08 Coronary atherosclerosis of crow coronary celina ry 10/15/2007 BPH without obstruction/lower urinary tract symp toms 09/08/2005 Other allergic rhinitis 02/28/2001 Overview: ICD-10 update of inactive term Hastings's esophagus with high grade dysplasia Overview: Hastings's esophagus: egd by Dr Grant () f/u EGD 2001- neg per pt Cyst of kidney, acquired Overview: followed at [place] documented as of this encounter (statuses as [...] 3.4 by CTA 08/09/2012 [facility] Other*[id number] 03/08/2011 05/24/2016 Shortness of breath 02/22/2011 12/09/19 [...] on file documented as of this encounter Patient Instructions * Patient Instructions* Laure Arias PA-C - 02/23/2023 3:47 PM EST SUNSCREEN USE AND SUN PROTECTION: 1. The best protection is sun avoidance. Seek shade if you can, especially between 10am to 4pm (peak sun hours). 2. Use sunscreen with an SPF (Sun Protection Factor - the number on most sunscreen bottles) of 30 or more that protects from Ultraviolet A (UVA) and Ultraviolet B (UVB) wavelength light (strongly recommend SPF 50). This is referred to as broad spectrum sun protection because it protects from most wa velengths in both spectrums of UVA and UVB light. Unfortunately, even though the protection is broad it is not complete, therefore making sun avoidance the best protection. UVB and UVA have both beenimplicated in causing skin cancers. Older sunscreens only protected from UVB and sunscreens with added UVA protection should contain Titanium dioxide, Zinc oxide, or Avobenzone. Other oil free, non-comedogenic lotion with SPF 30 or greater is fine. 3. Use sun protection if outside for 15 minutes or more. Apply 20-30 minutes before going out and reapply every 1-2 hours. No sunscreen is truly water ''proof'' and it will wash away with sweat, swimming and rubbing. 4. Wear tightly woven, loose fitting (cooler) long sleeved clothing, UV-blocking sun glasses (eyes need protection as well) and wide-brimmed hatwear (no straw hats with holes because light still getsthrough). Strongly recommended *Neutrogena Pure and Free Baby SPF 60 (have separate face and body lotions) orCeraVe AM facial lotion (with SPF 30). If looking for non toxic alternatives-look for non-ashwini particle zinc. Product examples; Think sport, Think baby, Rohwer, [employer], [employer], [place] baby. "Baby" products can be used for all ages. Skin Cryosurgery (FREEZING) Instructions Most areas treated by freezing will need very little care. You may wash normally with soap and water and leave any small crusts in place. Vaseline to treated areas 2-3 times per day is a good idea, you do not need to keep them covered with bandages. If a large blister forms and breaks, you will want to apply a light dressing to the area. CHANGE DRESSING ONCE DAILY 1. Wash hands and remove the original dressing(s) in 12-24 hours. 2. Gently clean wound(s) with soap and water. Rinse with water and pat the wound dry. 3. Apply a thin layer of Vaseline ointment with a Q-tip. 4. Cover with a bandage if area(s) is not on the face or scalp. A dressing is not required on the face or scalp. Use non-adherent dressing and paper tape if you are sensitive to band-aid adhesive sensitive. 5. If you have any concerns about the healing wound, please either or our main Dermatology office in [place] at [phone]. If an emergency, please go to your nearest Emergency Department. documented in this encounter Progress Notes * Gabe Galindo MD - 02/27/2023 7:43 AM EST I have seen and examined the patient via teledermatology review of chart note and photos with Laure Arias PA-C. I have reviewed and agree with the assessment and plan. * Laure Arias PA-C - 02/23/2023 3:40 PM EST SUBJECTIVE: History of Present Illness: Hubert Persaud is a 82 year old male seen today for follow up of full skin exam. Previous office visit09/27/2022 Last attempted treatments include: NONE No new or changing lesions, per pt. Had heart valve surgery at [facility] at the end of 02/06. 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 REVIEW OF SYSTEMS: SKIN: No other new or changing moles. HEME/LYMPH: No new or enlarging lumps or bumps. CONSTITUTIONAL: No nausea, vomiting, fevers, chills, diarrhea. No recent unintended weight loss, night sweats, appetite or malaise. RESP: negative MSK/EXT: Negative or as per HPI GI: negative CV: Negative or as per HPI Rest of systems are negative or as per HPI SKIN CANCER HX: NONE Reviewed, same day as visit, 0 [facility] Dermatology lab work(s)/pathology report(s) as well as those sent by referring provider prior to seeing pt. MEDICA TIONS: Current Outpatient Medications Medication Sig Dispense Refill VITAMIN E 400 UNIT PO CAPS Take 1 Capsule by mouth. Wednesdays and Sundays ACETAMINOPHEN 500 MG PO TABS Two pills by mouth every 6 hours as needed for fever or pain GLUCOSAMINE CHONDROITIN COMPLX PO TABS Take 1 Tablet by mouth 2 times a day. Ascorbic Acid 1000 MG Oral Tablet Take 1 Tablet by mouth 2 times a day. Multiple Vitamin (MULTI VITAMIN) TABS Take 1 Tablet by mouth daily. Ultra preventative X aspirin enteric coated 81 MG TBEC Take 1 Tablet by mouth every evening. [place]-3 Fatty Acids (ULTRA OMEGA 3) 952 MG CAPS One tab twice daily (Patient taking differently: Take 1 Capsule by mouth 2 times a day.) 180 Cap 1 Coenzyme Q10 100 MG Oral Tablet Take 1 Tablet by mouth in the morning. DHEA 50 MG Oral Tablet Take 50 mg by mouth daily. Nitroglycerin 0.4 MG Sublingual Tablet Sublingual (Nitrostat) Place under the tongue 1 Tablet every5 minutes as needed for Pain, Chest. Maximum 3 doses. 25 Tablet 5 Vitamin D 25 MCG (1000 UT) Oral Tablet Take 2 Tablets by mouth daily. Cranberry 500 MG Oral Capsule Take 1 Capsule by mouth in the morning. Allopurinol 100 MG Oral Tablet (Zyloprim) TAKE ONE TABLET BY MOUTH IN THE MORNING AND TAKE ONE TABLET BEFORE BEDTIME 200 Tablet 3 Nitrofurantoin Macrocrystal 50 MG Oral Capsule (Macrodantin) TAKE ONE CAPSULE BY MOUTH EVERY DAY WITH MEAL/FOOD 90 Capsule 3 Atorvastatin Calcium 20 MG Oral Tablet [...] 1 Tablet by mouth in the morning. Abrysvo 120 MCG/0.5ML Intramuscular Solution Reconstituted (RSV Pre-Fusion F A&B Vac Rcmb) Inject 0.5 mL into a large muscle once for 1 dose. 1 Each 0 No current facility-administered medications for this visit. ALLERG IES: Cat dander, Dog dander, Dust, Environmental [pollen], Losartan, Ragweed, and Morphine OBJECT VIJI: GEN: alert, no distress, appears oriented, pleasant, and cooperative. SKIN: Detailed exam of hair, face including lids and lips, neck, chest, abdomen, back, bilateral upper ext. (arm, hand, fingers), bilateral lower ext. (leg, foot, toes), palpation of scalp, fingernails, toenails, inguinal areas, groin (penis, scrotum and perineum), buttocks, and anus completed: 1. Scalp/face/neck/trunk/bilat arms and legs-Extensive sharply defined, variegated brown, waxy flatpapules with velvety to finely verrucous surfaces. 2. Trunk/bilat arms and legs-About 15 2-3mm light and light-medium brown macules. 3. Face/trunk/bilat arms and legs-Some well defined light to medium brown homogenous stellate macules. ASSESS MENT/PLAN: 1. Seborrheic/Benign Keratosis(-es) on scalp/face/neck/trunk/bilat arms and legs-no tx needed, pt given reassurance. 2. Nevi on trunk/bilat arms and legs-no tx needed, pt given reassurance and written education aboutdiagnosis. Skin cancer brochure given at previous office visit (pt declined need for another) and ABCDE's discussed with patient. Annual full body skin examination (unless I recommended otherwise), self-examination, and sun protection (SPF 30+ daily to sun exposed areas, with reapplication every 1-2 hours when out in sun for long periods of time) advised and discussed. Recommended sooner follow up for new or changing lesions. These changes include rapid enlargement, changes in color or shape or symptoms, bleeding, or other concerns. The common features and behavior of non-melanoma skin cancers (e.g. BCC/SCC) as well as the ABCDEs and ugly duckling features of melanoma were also reviewed. 3. Lentigines on face/trunk/bilat arms and legs-no tx needed, pt given reassurance. Patient alone today. Photo(s) of #1-3 taken, pt verbally consented to having photo(s) taken. Follow-up: 2 years for full skin exam Applicable photos (if any) and chart reviewed by Dr. Gabe Galindo. Presumed diagnoses, expected natural histories, and management options discussed with the patient at length. Questions were addressed and anticipatory guidance provided. They were instructed to contact me if additional questions, concerns, or problems develop in the interim. -There were no barriers to learning and no other pain was related to today's visit. The patient and/or person accompanying patient demonstrates understanding of the visit and treatment. Laure Arias PA-C 02/23/2023 11:28 AM Ref: SELF[[id number]] NO STREET ADDRESS AVAILABLE None (office) None (fax) PCP: GÉNESIS [place]SE[place] [address] [phone] documented in this encounter Nursing Notes * Lauren Negron LPN - 02/23/2023 3:46 PM EST Patient identified by full name and date of . Chief Complaint Patient presents with Follow Up 1 year for full skin exam, no new concerns documented in this encounter Plan of Treatment Upcoming Encounters Date Type Department Care Team (Late st Contact Info) Description 02/27/2023 11:00 AM EST Office Visit [facility], [facility] [address] [facility] [place] [address] Bessy Gill PA-C [address] [facility] [place] [address] 03/15/2023 9:20 AM EST Office Visit Family Practice [address], [place] [address] [place] [address] Génesis Canseco, [address] [facility] [place] [address] 03/17/2023 10:30 AM EST Office Visit Gastroenterology, [facility] [address] [facility] [place] [address] Patricia Mejia CRNP [address] [facility] [address] 06/30/2023 11:20 AM EDT Office Visit Nephrology, Den[facility] Arteaga [address] [place] [address] Rayn Issa MD [address] [place] [address] 08/18/2023 3:00 PM EDT Office Visit Nephrology, Deniz Arteaga [address] [place] [address] Ryan Issa MD [address] [place] [address] 08/22/2023 11:00 AM EDT Imaging Radiology [facility] [address] [facility] [place] [address] 02/27/2025 3:40 PM EST Office Visit Dermatology, [address] [place] [address] Laure Arias PA-C [address] [place] [address] [place] [address] Health Maintenance Due Date Last Done Comments Hastings's Esophagus Surveilance 03/17/2019 03/17/2016, 04/29/2014, 03/23/2012, Additional history exists COVID-19 Vaccine ( season) 2022 04/19/2022, 12/06/2021, 02/24/2021, Additional history exists GFR 08/18/2023 02/17/2023, 10/15, 06/13/2022, Additional history exists Albumin/Creatinine Ratio 09/07/2023 023, 09/21/2021, 09/10/2013, Additional history exists TSH 10/26/2023 10/25/2022, 08/16, 05/27/2022, Additional history exists CKD PHOS USE SMARTSET 75737 12/14/202311/16, 10/11/2021, 03/18/2021, Additional history exists HbA1c 12/14/2023 12/13/2022, 08/16, 03/09/2022, Additional history exists CKD HGB USE SMARTSET 11702 02/18/202402/17, 02/17/2023, 10/25/2022, Additional history exists Depression [...] Procedure Name Priority Date/Time Associated Diagnosis Comments DERM IMAGE (SITE) Routine 02/23/2023 Seborrheic keratosis Skin exam, screening for cancer Multiple nevi Lentigines documented in this encounter Results * DERM IMAGE (SITE) (02/23/2023) 02/23/2023 Laure Arias PA-C DIGITAL PHOTOG [facility] documented in this encounter Visit Diagnoses Diagnosis Multiple nevi- Primary Benign neoplasm of skin, site unspecified Seborrheic keratosis Other seborrheic keratosis Skin exam, screening for cancer Screening for malignant neoplasm of the skin Lentigines Other dyschromia documented in this encounter Care Teams Signals Collector/Analyst Relationship Specialty Start Date End Date Génesis Canseco DO [address] [place] [address] PCP - General Internal Medicine 04/07/22 documented as of this encounter
--- OUTSIDE RECORDS SUMMARY | 2023-03-04 16:27 | External Medical Summary ---
Author Name Unknown Address Unknown Organization [id number]:LABORATORY [facility] [place] - [address] [place] [address] Laboratory Report Ordering Provider Test Date Status MARLEE KOVACS 02/27/2023 12:10:40 Final Observation Date Value Abnormality Reference (Units ) Status BUN 02/27/2023 12:10:40 19 6-20 (mg/dL) Final Creatinine 02/27/2023 12:10:40 1.4 Above high normal 0.6-1.2 (mg/dL) Final Glomerular filtration rate/1.73 sq M.predicted [Volume Rate/Area] in Serum, Plasma or Blood by Creatinine-based formula (CKD-EPI) 02/27/2023 12:10:40 53 Below low normal >=60 (mL/min) Final eGFR is calculated based on the CKD-EPI 2020 equation SODIUM 02/27/2023 12:10:40 137 135-146 (m mol/L) Final Potassium 02/27/2023 12:10:40 4.1 3.5-5.1 (m mol/L) Final Cl 02/27/2023 12:10:40 100 98-107 (mm ol/L) Final CO2 02/27/2023 12:10:40 28 22-32 (mmo l/L) Final Anion gap 02/27/2023 12:10:40 9 7-15 (mmol /L) Final Glucose 02/27/2023 12:10:40 75 70-120 (mg /dL) Final Calcium 02/27/2023 12:10:40 9.6 8.4-10.2 ( mg/dL) Final Albumin 02/27/2023 12:10:40 3.9 3.8-5.0 (g /dL) Final Phosphate 02/27/2023 12:10:40 3.2 2.5-4.8 (m g/dL) Final Performing Location LABORATORY [facility] [place] - [address] [place] [address]
--- OUTSIDE RECORDS SUMMARY | 2023-03-04 16:27 | External Medical Summary ---
Author Name Unknown Address Unknown Organization [id number][facility] [facility] [address] [place] [id number] Laboratory Report Ordering Provider Test Date Status RYAN PARISH 02/27/2023 12:10:40 Final Observation Date Value Abnormality Reference (Units ) Status Protein 02/27/2023 12:10:40 6.6 6.0-8.3 (g /dL) Final Performing Location [facility] - [address] [place] [id number]
--- OUTSIDE RECORDS SUMMARY | 2023-03-04 16:27 | External Medical Summary ---
Author Name Unknown Address Unknown Organization [id number]:[facility] [address] - [address] [place] [place] [address] Laboratory Report Ordering Provider Test Date Status MARLEE KOVACS 02/27/2023 12:10:40 Final Observation Date Value Abnormality Reference (Units ) Status SYNC LEUKOCYTES IN BLOOD BY AUTOMATED COUNT 02/27/2023 12:10:40 5.04 4.00-10.80 (K/uL) Final Segs 02/27/2023 12:10:40 57.0 40.0-75.0 (%) Final Lymphs % 02/27/2023 12:10:40 22.0 18.0-42.0 (%) Final Monos 02/27/2023 12:10:40 12.5 Above high normal 1.0-11.0 (%) Final Eosinophils 02/27/2023 12:10:40 6.3 Above high normal 0.0-6.0 (%) Final Basos 02/27/2023 12:10:40 2.2 Above high normal 0.0-2.0 (%) Final Absolute Segs 02/27/2023 12:10:40 2.87 1.80-7.70 (K/uL) Final Lymphs, absolute 02/27/2023 12:10:40 1.11 1.00-4.80 (K/ul) Final Monos, Abs 02/27/2023 12:10:40 0.63 0.00-1.10 (K/uL) Final Eos, Abs 02/27/2023 12:10:40 0.32 0.00-0.70 (K/uL) Final Basos, Abs 02/27/2023 12:10:40 0.11 0.00-0.20 (K/uL) Final Performing Location [facility] [address] - [address] [place] [address]
--- OUTSIDE RECORDS SUMMARY | 2023-03-04 16:28 | External Medical Summary | Summary of Care ---
Author Name Unknown Organization [facility] Address [address] [place] [address] Phone [phone] Care Team Providers Care Configuration Management Architect Name Role Phone Yanick Canseco DO Primary Care Provider [phone] Reason for Visit * Reason Onset Date Comments Follow Up 02/20/2023 Encounter Details Date Type Department Care Team (Late st Contact Info) Description 02/20/2023 Telephone Family Practice [address] [facility] [address] [place] [address] Yanick Canseco DO [address] [place] [address] Follow Up Allergies Active Allergy Reactions Criticality Noted Date Comments Cat Dander 09/25/2014 Dog Dander 09/25/2014 Dust 09/23/2015 Pollen 09/25/2014 Losartan Other (Please comment) 03/02/2021 Hyperkalemia Morphine Nausea/vomiting Low 12/13/2017 Ragweed 09/25/2014 documented as of this encounter (statuses as of 02/20/2023) Medications Medication Sig Dispensed Refills Start Date [...] Tablet by mouth every evening. 0 Active [place]-3 Fatty Acids (ULTRA OMEGA 3) 952 MG [...] Sublingual Tablet Sublingual (Nitrostat)Indicat ions:Atheroscleros is of [place] coronary artery of [place] heart without angina pectoris Place under the [...] in the morning. 0 02/14/2023 3 Active Furosemide 20 MG Oral Tablet (Lasix) Take 1 Tablet by mouth in the morning. 0 02/14/2023 3 Active Potassium Chloride ER 10 MEQ Oral Tablet Extended Release Take 1 Tablet by mouth in the morning. 0 02/14/2023 3 Active documented as of this encounter (statuses as of 02/20/2023) Active Problems Problem Noted Date Diagnosed Date [...] bypass graft 10/15/19 08 Coronary atherosclerosis of [place] coronary celina ry 10/15/2007 BPH without obstruction/lower urinary tract symp toms 09/08/2005 Other allergic rhinitis 02/28/2001 Overview: ICD-10 update of inactive term Hastings's esophagus with high grade dysplasia Overview: Hastings's esophagus: egd by Dr Grant () f/u EGD 2001- per pt Cyst of kidney, acquired Overview: followed at [place] documented as of this encounter (statuses as of 02/20/2023) Resolved Problems Problem Noted Date Diagnosed Date [...] 3.4 by CTA 08/09/2012 [employer] Other*[id number] 03/08/2011 05/24/2016 Shortness of breath 02/22/2011 12/09/19 [...] as of this encounter (statuses as of 02/20/2023) Immunizations Name Administration Dates Next Due COVID-19 [...] Valent (Prevnar) 12/11/2017,12/22/2015 Pneumococcal Polysaccharide PPV23 (Pneumovax) 12/06/2012,01/20/2006,04/02/2004 SEASONAL INFLUENZA, PF, 6 M & Above, [...] Date Recorded PHQ Adult Total Score 0 12/28/2022 Hunger Vital Sign Answer Date Recorded Within the past 12 months, y ou worried that your food would run out before you got the money to buy more. Never true 12/29/19 23 Within the past 12 months, t he food you bought just didn't last and you didn't have money to get more. Never true 12/28/2022 Sex and Gender Information Value Date Recorded Sex Assigned at Male 08/03/2022 9:25 AM EDT Gender Identity Male 08/03/2022 9:25 AM EDT Sexual Orientation Straight 08/03/2022 9: 25 AM EDT Job Start Date Occupation Industry Not on file Not on file Not on file documented as of this encounter Miscellaneous Notes * Telephone Encounter - Argenis Aparicio RN - 02/20/2023 3:10 PM EST RN Lead:Argenis Aparicio RN Date: 02/20/2023 Patient seen for ASC: PAF Connected with patient via phone. Verified patient name/. Assessment: Pt. seen: 02/17/2023 Treatment plan: continue with amiodarone 200 mg daily x 30 days per [facility] Status update: see message below Medication Reconciliation: Medication Reconciliation completed: Yes Careteam: Mechanic And Welder: Yes Please let patient know you will be sharing with the CM and they may contact patient for future follow up. If patient is case managed, please route note to CM. If patient requires further follow-up for this ASC episode, please reach out directly to the medication manager via Teams or [employer]. Plan for Future Contacts: Plan to follow up Keep scheduled appointment Advancement/Closure Plan: Patient provided contact information and encouraged to call CM or clinic directly with any changes in condition. * Telephone Encounter - Yanick Canseco DO - 02/20/2023 2:27 PM EST Noted * Telephone Encounter - Argenis Sauer LPN - 02/20/2023 1:40 PM EST Patient is aware and will comply. Continue to be fatigued. Denies chest pain or sob. States legs get weak as times. * Telephone Encounter - Argenis Aparicio RN - 02/20/2023 9:34 AM EST Lab results also: Renal function decreased slightly. Patinet finished Furosemide and KCl Repeat BMP 3 days. RN Lead:Argenis Aparicio RN Date: 02/20/2023 Patient seen for ASC: PAF Assessment: Pt. seen: 02/17/2023 Treatment plan: continue with amiodarone 200 mg daily x 30 days per discharge from [facility]02/15/23 Call to pt-no answer-message left to call office. documented in this encounter Plan of Treatment Upcoming Encounters Date Type Department Care Team (Late st Contact Info) Description 02/22/2023 1:00 PM EST [place] [address] Ryan Issa MD [address] [facility] [place] [address] 02/23/2023 10:40 AM EST Office Visit Family Practice [address] [place] [address] [address] [place] [address] Yanick Canseco, DO 293 [place] [address] 02/23/2023 3:40 PM EST Office Visit Dermatology[address] [address] Laure Arias, PADerrick [address] [place] [address] [place] [address] 02/27/2023 11:00 AM EST Office Visit [facility], [facility] [address] Bessy Gill PA-C 132 [place] [address] 03/15/2023 9:20 AM EST Office Visit Family Practice [address] [place] [address] 293 [place] [address] Yanick Canseco, DO 293 [place] [address] 03/17/2023 10:30 AM EST Office Visit Gastroenterology, [facility] 132 [facility] [place] [address] Patricia Mejia CRNP [facility] [place] [address] 06/30/2023 11:20 AM EDT Office Visit Nephrology, [facility] [address] [place] [address] Ryan Issa MD [facility] [place] [address] 08/18/2023 3:00 PM EDT Office Visit Nephrology, [facility] [address] [place] [address] [address] Ryan Issa MD 200 [facility] [place] [address] 08/22/2023 11:00 AM EDT Imaging Radiology [facility]st [facility] [place] [address] [facility] [place] [address] Scheduled Orders Name Type Priority Associated Diagnoses Orde r Schedule BASIC METABOLIC PANEL Lab Routine Abnormal kidney function Expected: 02/23/2023 (Approximate), Expires: 02/20/2024 Health Maintenance Due Date Last Done Comments Hastings's Esophagus Surveilance 03/17/2019 03/17/2016, 04/29/2014, 03/23/2012, Additional history exists COVID-19 Vaccine ( season) 2022 04/19/2022, 12/06/2021, 02/24/2021, Additional history exists GFR 08/18/2023 02/17/2023, 10/15, 06/13/2022, Additional history exists Albumin/Creatinine Ratio 09/07/2023 023, 09/21/2021, 09/10/2013, Additional history exists TSH 10/26/2023 10/25/2022, 08/16, 05/27/2022, Additional history exists CKD PHOS USE SMARTSET 85220 12/14/202311/16, 10/11/2021, 03/18/2021, Additional history exists HbA1c 12/14/2023 12/13/2022, 08/16, 03/09/2022, Additional history exists CKD HGB USE SMARTSET 27458 02/18/202402/17, 02/17/2023, 10/25/2022, Additional history exists Depression Screening 02/18/2024 02/17/2023 DTaP,Tdap,and Td Vaccines (2 - Td or Tdap) 09/13/2026 09/13/2016, 08/07/2007 Hepatitis B Completed 08/30/2016, 02/16, 02/11/2016 Pneumococcal Vaccine: 65+ Years Completed 12/11/2017, 12/22/2015, 12/06/2012, Additional history exists Zoster Vaccines Completed 04/04/2020, 01/15, 02/06/2012 Influenza Vaccine (FLU shot) Completed , 02/03/2022, 03/02/2021, Additional history exists GARDASIL-HPV IMMUNIZATION SERIES Aged Out No longer eligible based on patient's age to complete this topic MENINGOCOCCAL (MENACTRA/MENVEO) Aged Out No longer eligible based on patient's age to complete this topic documented as of this encounter Medical Devices Not on filedocumented as of this encounter Visit Diagnoses Diagnosis Abnormal kidney function- Primary Unspecified disorder of kidney and ureter documented in this encounter Care Teams Configuration Management Architect Relationship Specialty Start Date End Date Yanick Canseco DO 293 [place] [address] PCP - General Internal Medicine 04/07/22 documented as of this encounter
--- OUTSIDE RECORDS SUMMARY | 2023-03-04 16:28 | External Medical Summary ---
Author Name Unknown Address Unknown Organization [facility] [address] [place] [address] Laboratory Report Ordering Provider Test Date Status MARLEE KOVACS 02/27/2023 12:10:40 Final Observation Date Value Abnormality Reference (Units ) Status WBC, Total 02/27/2023 12:10:40 5.04 4.00-10.8 0 (K/uL) Final RBC 02/27/2023 12:10:40 3.37 4.50-5.25 (M/uL) Final Hemoglobin 02/27/2023 12:10:40 11.6 Below low normal 14 .0-16.8 (g/dL) Final HCT 02/27/2023 12:10:40 35.7 Below low normal 40. 0-48.4 (%) Final MCV 02/27/2023 12:10:40 105.9 82.0-99.5 (fL) Final MCH 02/27/2023 12:10:40 34.4 27.0-34.0 (pg) Final MCHC 02/27/2023 12:10:40 32.5 32.0-36.0 (g/dL) Final RDW 02/27/2023 12:10:40 13.6 11.5-15.5 (%) Final Platelets 02/27/2023 12:10:40 302 140-400 (K /uL) Final MPV 02/27/2023 12:10:40 11.1 6.6-11.1 ( fL) Final Performing Location [facility] [address] [place] [address]
--- OUTSIDE RECORDS SUMMARY | 2023-03-04 16:28 | External Medical Summary ---
Author Name Unknown Address Unknown Organization [facility] [address] [place] [address] Laboratory Report Ordering Provider Test Date Status RYAN PARISH 02/27/2023 12:10:40 Final Observation Date Value Abnormality Reference (Units ) Status AST (Aspartate aminotransferase) 02/27/2023 12:10:40 20 10-50 (U/L) Final Performing Location [facility] [address] [place] [address]
--- OUTSIDE RECORDS SUMMARY | 2023-03-04 16:28 | External Medical Summary | Summary of Care ---
Author Name Unknown Organization [facility] Address [address] [facility] [place] [address] Phone [phone] Care Team Providers Care Assistant Program Manager Name Role Phone Génesis Canseco DO Primary Care Provider Reason for Visit * Reason Comments Follow Up 1 year for full skin exam, no new concerns Encounter Details Date Type Department Care Team (Late st Contact Info) Description 02/23/2023 3:40 PM EST Office Visit Dermatology[address] [address] Laure Arias PA-C [address] [place] [address] [place] [address] Multiple nevi*; Seborrheic keratosis; Skin exam, screening for cancer; Lentigines Allergies Active Allergy Reactions Criticality Noted Date Comments Cat Dander 09/25/2014 Dog Dander 09/25/2014 Dust 09/23/2015 Pollen 09/25/2014 Losartan Other (Please comment) 03/02/2021 Hyperkalemia Morphine Nausea/vomiting Low 12/13/2017 Ragweed 09/25/2014 documented as of this encounter (statuses as of 02/23/2023) Medications Medication Sig Dispensed Refills Start Date [...] Tablet by mouth every evening. 0 Active [place]-3 Fatty Acids (ULTRA OMEGA 3) 952 MG [...] MG Sublingual Tablet Sublingual (Nitrostat)Indicati ons:Atherosclerosis of tlingit & [place] coronary artery of tlingit & haida heart without angina pectoris Place under the [...] 1 dose. 1 Each 0 02/23/2023 3 Active documented as of this encounter (statuses as of 02/23/2023) Active Problems Problem Noted Date Diagnosed Date [...] bypass graft 10/15/19 08 Coronary atherosclerosis of tlingit & [place] coronary celina ry 10/15/2007 BPH without obstruction/lower urinary tract symp toms 09/08/2005 Other allergic rhinitis 02/28/2001 Overview: ICD-10 update of inactive term Hastings's esophagus with high grade dysplasia Overview: Hastings's esophagus: egd by Dr Grant () f/u EGD 2001- neg per pt Cyst of kidney, acquired Overview: followed at [place] documented as of this encounter (statuses as of 02/23/2023) Resolved Problems Problem Noted Date Diagnosed Date [...] 3.4 by CTA 08/09/2012 [employer] [facility] Other*[id number] 03/08/2011 05/24/2016 Shortness of breath 02/22/2011 12/09/19 [...] as of this encounter (statuses as of 02/23/2023) Immunizations Name Administration Dates Next Due COVID-19 [...] zinc. Product examples; Think sport, Think baby, [employer], [employer], [employer], [place] baby. "Baby" products can be used [...] either or our main Dermatology office in [place] at [phone]. If an emergency, please go to your nearest Emergency Department. documented in this encounter Progress Notes * Laure Arias PA-C - 02/23/2023 3:40 PM EST SUBJECTIVE: History of Present Illness: Hubert Persaud is a 82 year old male seen today for follow up of full skin exam. Previous office visit09/27/2022 Last attempted treatments include: NONE No new or changing lesions, per pt. Had heart valve surgery at [facility] at the end of 02/06. Shuttle Filler Documentation Patient offered medical appointment clerk and declined. REVIEW OF SYSTEMS: SKIN: No [...] NONE Reviewed, same day as visit, 0 [facility] Dermatology lab work(s)/pathology report(s) as well as [...] Take 1 Tablet by mouth every evening. [place]-3 Fatty Acids (ULTRA OMEGA 3) 952 MG [...] Laure Arias PA-C 02/23/2023 11:28 AM Ref: SELF[[id number]] NO STREET ADDRESS AVAILABLE None (office) None (fax) PCP: GÉNESIS CANSECO [address] [place] [address] [phone] documented in this encounter Nursing Notes * [...] 02/27/2023 11:00 AM EST Office Visit Cardiology, [facility] [address] [facility] [place] [address] Bessy Gill PA-C [facility] [place] [address] 03/15/2023 9:20 AM EST Office Visit Family Practice [address] [place] [address] 293 [place] [address] Génesis Canseco DO 293 [place] [address] 03/17/2023 10:30 AM EST Office Visit Gastroenterology, [facility] 132 [facility] [place] [address] Patricia Mejia CRNP [address] [place] [address] 06/30/2023 11:20 AM EDT Office Visit Nephrology, [facility] [address] [place] [address] Ryan Issa MD [address] [place] [address] 08/18/2023 3:00 PM EDT Office Visit Nephrology, [facility] [address] [place] [address] Ryan Issa MD [address] [place] [address] 08/22/2023 11:00 AM EDT Imaging Radiology [facility] 1st [facility] 132 [facility] [place] [address] 02/27/2025 3:40 PM EST Office Visit [address] [address] Laure Arias, PATRICE [address] [place] [address] [place] [address] Health Maintenance Due Date Last Done Comments Hastings's Esophagus Surveilance 03/17/2019 03/17/2016, 04/29/2014, 03/23/2012, Additional history exists COVID-19 Vaccine ( season) 2022 04/19/2022, 12/06/2021, 02/24/2021, Additional history exists GFR 08/18/2023 02/17/2023, 10/15, 06/13/2022, Additional history exists Albumin/Creatinine Ratio 09/07/2023 023, 09/21/2021, 09/10/2013, Additional history exists TSH 10/26/2023 10/25/2022, 08/16, 05/27/2022, Additional history exists CKD PHOS USE SMARTSET 97135 12/14/202311/16, 10/11/2021, 03/18/2021, Additional history exists HbA1c 12/14/2023 12/13/2022, 08/16, 03/09/2022, Additional history exists CKD HGB USE SMARTSET 56614 02/18/202402/17, 02/17/2023, 10/25/2022, Additional history exists Depression [...] as of this encounter Visit Diagnoses Diagnosis Multiple nevi- Primary Benign neoplasm of skin, site unspecified Seborrheic keratosis Other seborrheic keratosis Skin exam, screening for cancer Screening for malignant neoplasm of the skin Lentigines Other dyschromia documented in this encounter Care Teams Assistant Program Manager Relationship Specialty Start Date End Date Génesis Canseco DO [address] [facility] [place] [address] PCP - General Internal Medicine 04/07/22 documented as of this encounter
--- OUTSIDE RECORDS SUMMARY | 2023-03-04 16:28 | External Medical Summary | Summary of Care ---
Author Name Unknown Organization [facility] Address [address] [place] [address] Phone [phone] Care Team Providers Care Music Critic Name Role Phone Yanick Canseco DO Primary Care Provider [phone] Reason for Referral * Evaluate & Treat - Unlimited Visits (Within 3 days (urgent)) - Authorized Specialty Diagnoses / Procedures Referred By Jose rivero Referred To Contact Chief Credit Officer Diagnoses Need for case management follow-up Hospital discharge follow-up Yanick Canseco DO [address] [place] [address] Referral ID Status Reason Start Date Expiration Date Visits Requested Visits Authorized [id number] Authorized Specialty Services Required 02/22/2023 1 1 Question Answer Referral Priority Within 3 days (urgent) Where should this appointment be scheduled? ising Program Type Case Management Complex Case Management [facility] Health Device(s) Requested Other (See Comment) Alarm Settings Standard per protocol Comments Primary Chief Credit Officer: Pinky French, HECTOR Is the patient already enrolled with another [facility] device/service? (If no, will need to "push the button") No Does the patient have a physical address? (If no, provide physical address if requesting device) Yes Requested Devices/IVR: IVR Post-Discharge Start date: 03/01 How many weeks: 2 If want time other than 9am, note time here: Encounter Details Date Type Department Care Team (Late st Contact Info) Description 02/22/2023 Chief Credit OfficerCompletion Manager Practice [place], [place] [address] [place] [address] Pinky Fong, RN [address] [place] [address] Medical home patient encounter*; Need for case management follow-up; Hospital discharge follow-up Allergies Active Allergy Reactions Criticality Noted Date Comments Cat Dander 09/25/2014 Dog Dander 09/25/2014 Dust 09/23/2015 Pollen 09/25/2014 Losartan Other (Please comment) 03/02/2021 Hyperkalemia Morphine Nausea/vomiting Low 12/13/2017 Ragweed 09/25/2014 documented as of this encounter (statuses as of 02/22/2023) Medications Medication Sig Dispensed Refills Start Date [...] Tablet by mouth every evening. 0 Active [place]-3 Fatty Acids (ULTRA OMEGA 3) 952 MG [...] Sublingual Tablet Sublingual (Nitrostat)Indicat ions:Atheroscleros is of [place] coronary artery of jam[place] heart without angina pectoris Place under the [...] as of this encounter (statuses as of 02/22/2023) Active Problems Problem Noted Date Diagnosed Date [...] bypass graft 10/15/19 08 Coronary atherosclerosis of jam[place] coronary celina ry 10/15/2007 BPH without obstruction/lower urinary tract symp toms 09/08/2005 Other allergic rhinitis 02/28/2001 Overview: ICD-10 update of inactive term Hastings's esophagus with high grade dysplasia Overview: Hastings's esophagus: egd by Dr Grant () f/u EGD 2002- neg per pt Cyst of kidney, acquired Overview: followed at [place] documented as of this encounter (statuses as of 02/22/2023) Resolved Problems Problem Noted Date Diagnosed Date [...] 3.4 by CTA 08/09/2012 [facility] [facility] [facility] Other*[id number] 03/08/2011 05/24/2016 Shortness of breath 02/22/2011 12/09/19 [...] as of this encounter (statuses as of 02/22/2023) Immunizations Name Administration Dates Next Due COVID-19 [...] Valent (Prevnar) 12/11/2017,12/22/2015 Pneumococcal Polysaccharide PPV23 (Pneumovax) 12/06/2012,01/20/2006 SEASONAL INFLUENZA, PF, 6 M & Above, [...] on file documented as of this encounter Progress Notes * Pinky Fong RN - 02/22/2023 2:41 PM EST Chief Credit Officer Progress Note: Date: 02/22/23 Assigned Patient Tier: 2 Connected with patient via telephone. Verified patient name/. Advised patient that call is beingrecorded for quality and training purposes. Assessment: Pt. noted the following: Call for KRYSTAL follow up. Pt was d/c t home s/p AVR procedure at the [facility]. Reports some fatigue but he is trying to walk daily. He was seen today by Neprology and will be seen by PCP tomorrow and by cardiology on 02/27. Pt states he was told he should do cardiac rehab program in a month or so after d/c. He is going to discuss with new grad rn. Meds and d/c instructions reviewed. Pt verbalized understanding. Did you receive an alert for an annual wellness visit? No Is this call for a hospital, detention or rehab facility discharge to home? Yes [facility]02/14. Medication Reconciliation: Medication Reconciliation completed: yes Review of Current goals: Discussed the following patient-centered CM goals with the patient during this discussion: -TREATMENT: Heal and maintain skin integrity -Status: On Track . -Prevention: Prevent admission/readmission -Status: On Track . -Exacerbation: Patient will have exacerbation plan in place for chronic conditions -Status: On Track COPD Patient: No CHF Patient: NO CM Plan: Reviewed 3 Red Flags with patient. Advised to call CM with any of the following: Red Flag 1: weakness or dizziness, Red Flag 2: fevers or chills, or Red Flag 3: s/s of infection at surgical site Remote Patient Monitoring: Current Health 24 Hour Monitor Offered. Patient Declined. Plan for Future Contacts: Plan to follow up within 1 week to check progress on the following goals/needs KRYSTAL. Planned contacts from the following parties will occur this week: PCP office visit and Specialty Visit as additional contacts per workflow. Advancement/Closure Plan: Advance patient to following higher tier. Will arrange the following advanced interventions if necessary: 2. Patient provided CM contact information and encouraged to call with any changes in condition. SNP Member? No PCP Notified of enrollment in CM/HM program: Yes Is Provider in agreement with POC? Yes Pinky Fong RN Outpatient Case Management documented in this encounter Plan of Treatment Upcoming Encounters Date Type Department Care Team (Late st Contact Info) Description 02/23/2023 10:40 AM EST Office Visit Family [address] [place] [address] Yanick Canseco, [address] [facility] [place] [address] 02/23/2023 3:40 PM EST Office Visit Dermatology[address] [address] Laure Arias PA-C [address] [place] [address] [place] [address] 02/27/2023 11:00 AM EST Office Visit Cardiology, [facility] [address] [facility] [place] [address] Bessy Gill PA-C [address] [facility] [place] [address] 03/15/2023 9:20 AM EST Office Visit Family [address] [facility] [place] [address] Yanick Canseco, [address] [facility] [place] [address] 03/17/2023 10:30 AM EST Office Visit Gastroenterology, [facility] [address] [facility] [place] [address] SebPatricia hanson CRNP [address] [facility] [place] [address] 06/30/2023 11:20 AM EDT Office Visit Nephrology, [facility] [address] [place] [address] Ryan Issa MD [address] [place] [address] 08/18/2023 3:00 PM EDT Office Visit Nephrology, [facility] [address] [facility] [place] [address] Ryan Issa MD [address] [facility] [place] [address] 08/22/2023 11:00 AM EDT Imaging Radiology [address], [place] 132 [facility] [place] [address] Scheduled Referrals Name Type Priority Associated Diagnoses Orde r Schedule REMOTE PATIENT MONITORING REFERRAL Referral Within 3 days (urgent) Need for case management follow-up Hospital discharge follow-up Ordered: 02/22/2023 Health Maintenance Due Date Last Done Comments Hastings's Esophagus Surveilance 03/17/2019 03/17/2016, 04/29/2014, 03/23/2012, Additional history exists COVID-19 Vaccine ( season) 2022 04/19/2022, 12/06/2021, 02/24/2021, Additional history exists GFR 08/18/2023 02/17/2023, 10/15, 06/13/2022, Additional history exists Albumin/Creatinine Ratio 09/07/2023 023, 09/21/2021, 09/10/2013, Additional history exists TSH 10/26/2023 10/25/2022, 08/16, 05/27/2022, Additional history exists CKD PHOS USE SMARTSET 86006 12/14/202311/16, 10/11/2021, 03/18/2021, Additional history exists HbA1c 12/14/2023 12/13/2022, 08/16, 03/09/2022, Additional history exists CKD HGB USE SMARTSET 59813 02/18/202402/17, 02/17/2023, 10/25/2022, Additional history exists Depression [...] as of this encounter Visit Diagnoses Diagnosis Medical home patient encounter- Primary Other specified examination Need for case management follow-up Hospital discharge follow-up Other follow-up examination documented in this encounter Care Teams Music Critic Relationship Specialty Start Date End Date Yanick Canseco DO [address] [place] [address] PCP - General Internal Medicine 04/07/22 documented as of this encounter
--- OUTSIDE RECORDS SUMMARY | 2023-03-04 16:28 | External Medical Summary | Summary of Care ---
Author Name Unknown Organization [facility] Address [address] [place] [address] Phone [phone] Care Team Providers Care Molding Room Supervisor Name Role Phone Yanick Canseco DO Primary Care Provider [phone] Reason for Visit * Reason Onset Date Comments Test Results 02/20/202302/20 Encounter Details Date Type Department Care Team (Late st Contact Info) Description 02/20/2023 Telephone Family Practice [address] [facility] [address] [place] [phone] Yanick Canseco DO [address] [place], [place] [id number] Test Results (02/20) Allergies Active Allergy Reactions Criticality Noted Date [...] Tablet by mouth every evening. 0 Active [place]-3 Fatty Acids (ULTRA OMEGA 3) 952 MG [...] Sublingual Tablet Sublingual (Nitrostat)Indicat ions:Atheroscleros is of [place] coronary artery of [place] heart without angina pectoris Place under the [...] bypass graft 10/15/19 08 Coronary atherosclerosis of [place] coronary celina ry 10/15/2007 BPH without obstruction/lower urinary tract symp toms 09/08/2005 Other allergic rhinitis 02/28/2001 Overview: ICD-10 update of inactive term Hastings's esophagus with high grade dysplasia Overview: Hastings's esophagus: egd by Dr Grant () f/u EGD 2001- per pt Cyst of kidney, acquired Overview: followed at [place] documented as of this encounter (statuses as [...] 3.4 by CTA 08/09/2012 [employer] [facility] Other*[id number] 03/08/2011 05/24/2016 Shortness of breath 02/22/2011 12/09/19 [...] Encounter - Argenis Aparicio RN - 02/20/2023 3:53 PM EST Pt returned call-notified of message below. Voiced understanding. Has appt 02/23/[address] Canseco. He will call sooner with any problmes or concerns. * Telephone Encounter - Argenis Sauer LPN - 02/20/2023 3:24 PM EST Called, left message for patient to return call. Thank you * Telephone Encounter - Argenis Sauer LPN - 02/20/2023 3:23 PM EST ----- Message from Yanick Canseco DO sent at 02/20/2023 3:15 PM EST ----- Trace pleural effusion is present. Will repeat CXR at next visit. Fluid should absorb without intervention. documented in this encounter Plan of Treatment Upcoming Encounters Date Type Department Care Team (Late st Contact Info) Description 02/22/2023 1:00 PM EST Office Visit Nephrology, [facility] [address] [facility] [place] [address] Ryan Issa MD [address] [facility] [place] [address] 02/23/2023 10:40 AM EST Office Visit Family Practice [address] [place] [address] [address] [place] [address] Yanick Canseco DO [address] [place] [address] 02/23/2023 3:40 PM EST Office Visit Dermatology, [address] [address] Laure Arias PA-C [address] [place] [address] [place] [address] 02/27/2023 11:00 AM EST Office Visit Cardiology, [facility] [address] [facility] [place] [address] Bessy Gill PA-C [address] [facility] [place] [address] 03/15/2023 9:20 AM EST Office Visit Family Practice [address], [place] [address] [place] [address] Yanick Canseco DO [address] [place] [address] 03/17/2023 10:30 AM EST Office Visit Gastroenterology, [facility] [address] [facility] [place] [address] Patricia Mejia CRNP [facility] [address] 06/30/2023 11:20 AM EDT Office Visit Nephrology, [facility] [address] [place] [address] Ryan Issa MD [address] [facility] [place] [address] 08/18/2023 3:00 PM EDT Office Visit Nephrology, [facility] [address] [facility] [place] [address] Ryan Issa MD [address] [place] [address] 08/22/2023 11:00 AM EDT Imaging Radiology [facility] [address] [facility], [place] [address] [facility] [place] [address] Health Maintenance Due Date Last Done Comments Hastings's Esophagus Surveilance 03/17/2019 03/17/2016, 04/29/2014, 03/23/2012, Additional history exists COVID-19 Vaccine ( season) 2022 04/19/2022, 12/06/2021, 02/24/2021, Additional history exists GFR 08/18/2023 02/17/2023, 10/15, 06/13/2022, Additional history exists Albumin/Creatinine Ratio 09/07/2023 023, 09/21/2021, 09/10/2013, Additional history exists TSH 10/26/2023 10/25/2022, 08/16, 05/27/2022, Additional history exists CKD PHOS USE SMARTSET 17276 12/14/202311/16, 10/11/2021, 03/18/2021, Additional history exists HbA1c 12/14/2023 12/13/2022, 08/16, 03/09/2022, Additional history exists CKD HGB USE SMARTSET 56303 02/18/202402/17, 02/17/2023, 10/25/2022, Additional history exists Depression [...] filedocumented as of this encounter Care Teams Molding Room Supervisor Relationship Specialty Start Date End Date Yanick Canseco DO [address] [place] [address] PCP - General Internal Medicine 04/07/22 documented as of this encounter
--- OUTSIDE RECORDS SUMMARY | 2023-03-04 16:28 | External Medical Summary | Summary of Care ---
Author Name Unknown Organization [facility] Address [address] [place] [address] Phone [phone] Care Team Providers Care Portuguese Tutor Name Role Phone Yanick Canseco DO Primary Care Provider [phone] Reason for Visit * Reason Comments Follow Up Encounter Details Date Type Department Care Team (Late st Contact Info) Description 02/23/2023 10:40 AM EST Office Visit Family Practice [address] [place] [address] [address] [place] [address] Yanick Canseco [address] [place] [address] S/P aortic valve replacement*; Pulmonary nodule, left; Paroxysmal atrial fibrillation (HCC); Atherosclerosis of [place] coronary artery of [place] heart without angina pectoris; Aortic root enlargement (HCC); BPH without obstruction/lower urinary tract symptoms; Gouty arthropathy; Disc disorder of lumbar region; HTN, GOAL BELOW 140/90; Neurogenic bladder; Prediabetes; Hypothyroidism due to acquired atrophy of thyroid; Hypertensive kidney disease with stage 3b chronic kidney disease (HCC); Infrarenal abdominal 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 (HCC); Dyslipidemia, goal LDL below 70; Need for RSV immunization Allergies Active Allergy Reactions Criticality Noted Date Comments Cat Dander 09/25/2014 Dog Dander 09/25/2014 Dust 09/23/2015 Pollen 09/25/2014 Losartan Other (Please comment) 03/02/2021 Hyperkalemia Morphine Nausea/vomiting Low 12/13/2017 Ragweed 09/25/2014 documented as of this encounter (statuses as of 02/24/2023) Medications Medication Sig Dispensed Refills Start Date [...] Tablet by mouth every evening. 0 Active Glen-3 Fatty Acids (ULTRA OMEGA 3) 952 MG [...] MG Sublingual Tablet Sublingual (Nitrostat)Indicati ons:Atherosclerosis of [place] coronary artery of [place] heart without angina pectoris Place under the [...] as of this encounter (statuses as of 02/24/2023) Active Problems Problem Noted Date Diagnosed Date [...] bypass graft 10/15/19 08 Coronary atherosclerosis of [place] coronary celina ry 10/15/2007 BPH without obstruction/lower urinary tract symp toms 09/08/2005 Other allergic rhinitis 02/28/2001 Overview: ICD-10 update of inactive term Colbert's esophagus with high grade dysplasia Overview: Colbert's esophagus: egd by Dr Grant () f/u EGD 2001- neg per pt Cyst of kidney, acquired Overview: followed at [facility] documented as of this encounter (statuses as of 02/24/2023) Resolved Problems Problem Noted Date Diagnosed Date [...] 3.4 by CTA 08/09/2012 [facility] Other*[id number] 03/08/2011 05/24/2016 Shortness of breath 02/22/2011 12/09/19 [...] as of this encounter (statuses as of 02/24/2023) Immunizations Name Administration Dates Next Due COVID-19 [...] Passive Smoke Exposure: Past Smokeless Tobacco: Never Tobacco Cessation:Counseling Given: Yes Comments:no passive smoke Alcohol Use Standard Drinks/Week [...] Sign Reading Time Taken Comments Blood Pressure 98/60 02/23/2023 10:43 AM EST Pulse 56 02/23/2023 10:43 AM EST Temperature 36.1 C (97 F) 02/23/2023 10: 43 AM EST Respiratory Rate 14 02/23/2023 10:4 3 AM EST Oxygen Saturation 99% 02/23/2023 10: 43 AM EST Inhaled Oxygen Concentration - - Weight 81.1 kg (178 lb 14.4 oz) 023 10:43 AM EST Height 181 cm (5' 11.25") 02/23/2023 10 :43 AM EST Body Mass Index 24.78 02/23/2023 10:43 AM EST documented in this encounter Progress Notes * Yanick Canseco, DO - 02/23/2023 3:14 PM EST SUBJECTIVE: Hubert Persaud is a 82 year old male. Chief Complaint Patient presents with Follow Up HPI: Patient is an 82 year old male with a history of Atrial Fibrillation, CABG, Sleep Apnea, Hypothyroidism, left renal cyst, esophagectomy to treat Barett's Esophagus with high grade dysplasia, bilateral ICA stenosis, AAA, lumbar disc disease, Gout, Insomnia, BPH, Osteomyelitis of the Lumbar spine, and sacral neurotransmitted implant to treat Neurogenic Bladder that is seen for hospital follow up. Patient was admitted to [facility] and had AVR, bilatral MAZE, and ISAÍAS ligation to treat severeAortic Valve Insufficency. Patient is feeling well. No chest pain or shortness of breath are present. Appetite is improving. Patient has left lung nodule found incidentally on CT chest. Follow up CT chest recommended in 6 months.Patient is scheduled for Cardiology follow up on 02/27. He was seen byNephrology yesterday and labs are scheduled for 02/27. Furosemide and Potassium were completed 2 days ago. Patient Active Problem List Diagnosis Code Other allergic rhinitis J30.89 Colbert's esophagus with high grade dysplasia K22.711 Cyst of kidney, acquired N28.1 BPH without obstruction/lower urinary tract symptoms N40.0 History of coronary artery bypass graft Z95.1 Coronary atherosclerosis of [place] coronary artery I25.10 Gouty arthropathy M10.9 Disc [...] valve replacement Z95.2 Pulmonary nodule, left R91.1 Current Outpatient Medications Medication Sig Dispense Refill [...] Take 1 Tablet by mouth every evening. Glen-3 Fatty Acids (ULTRA OMEGA 3) 952 MG [...] BY MOUTH EVERY MORNING 100 Tablet 3 Omeprazole 40 MG Oral Capsule Delayed Release [...] once for 1 dose. 1 Each 0 Nitrofurantoin Macrocrystal 50 MG Oral Capsule (Macrodantin) TAKE ONE CAPSULE BY MOUTH EVERY DAY WITH MEAL/FOOD 90 Capsule 3 Catheters by Ureteral route 7 times a day. Uses 14 Caude catheters, self cath's 7 times daily No current facility-administered medications for this visit. The patient's medication list was reviewed and updated as needed. Past Medical History: Diagnosis Date Abdominal aortic aneurysm (HCC) 02/20/2009 Aortic root enlargement (HCC) 12/28/2022 Aortocoronary bypass status 10/15/2007 Atrial fibrillation (HCC) 02/16/2010 Chronic coronary artery disease 09/22 CABGx4 GIFFORD to LAD, SVG to ramus, SVG to OM, SVG to RCA DISC DIS [id number] 02/20/2009 Dyslipidemia, goal LDL below 100 03/30/2009 Per Lipid Taxonomy. Gouty arthropathy History of esophageal cancer Colbert's esophagus: egd by Dr Grant () f/u EGD 2001- neg per pt HTN, goal to be determined HYPERTROP PROSTATE W/O URIN OB 09/08/2005 Hypothyroidism Kidney disease, chronic, stage III (GFR 30-59 ml/min) ([facility]) 09/10/2013 MAL TIKI ESOPHAGUS NOS Colbert's esophagus: egd by Dr Grant () f/u EGD 2002- neg per pt Moderate to severe aortic insufficiency 03/02/2021 Neurogenic bladder 14 Fr straight tip self cath 6-7 times per day Pulmonary nodule, left 02/17/2023 Past Surgical History: Procedure Laterality Date BYPASS GRAFT ANGIOGRAPHY W/LEFT HEART CATH 03/08/2011 BYPASS GRAFT ANGIOGRAPHY W/LEFT HEART CATH performed by RACHEL JACOB at [facility] CABG, ARTERIAL, FOUR OR MORE 09/21/2007 four vessel CAGB CARPAL TUNNEL SURGERY Right 03/2017 COLONOSCOPY 04/2006 CYSTOSCOPY 10/09/2017 done [address] office [address] Chavez EGD, FLEXIBLE, DIAGNOSTIC 03/22/2012 UPPER GI ENDOSCOPY DIAGNOSTIC performed by Odalys Cárdenas MD at [facility] EGD, FLEXIBLE, DIAGNOSTIC 03/23/2012 UPPER GI ENDOSCOPY DIAGNOSTIC performed by Odalys Cárdenas MD at ENDOSCOPY [facility] BX negative for Colbert's- repeat in 2 years EGD, FLEXIBLE, DIAGNOSTIC N/A 04/29/2014 Unremarkable post esophagectomy anatomy, without evidence of colbert's. repeat in 3 yrs/ESOPHAGOGASTRODUODENOSCOPY (EGD), FLEXIBLE, TRANSORAL, DIAGNOSTIC performed by Odalys Cárdenas MD at ENDOSCOPY [facility] EGD, FLEXIBLE, DIAGNOSTIC N/A 03/17/2016 normal bx/ESOPHAGOGASTRODUODENOSCOPY (EGD), FLEXIBLE, TRANSORAL, DIAGNOSTIC performed by Babatunde Carr MD at [facility] EGD, FLEXIBLE, DIAGNOSTIC N/A 11/19/2019 small amount of retained bilious fluid of stomach, moderate edema and erythema of mucosa in stomach/retained food in stomach/biopsies normal/EGD/[facility] EGD, FLEXIBLE, W/BIOPSY 08/21/2007 No sx of Colbert's EGD, FLEXIBLE, W/BIOPSY 12/01/2009 done anastamosis and GE junction @ 20cm bx done--no eidence of Barretts IMPLANT MESH W/ ABD HERNIA REPR/DEBRIDE 12/2006 IMPLANT NEUROELECTRODES, SACRAL N/A 09/21/2022 INFORMATION 2001 Other Ventral hernia repair R lower abdomen NONE 2002 colonoscopy at [facility]. OTHER 10/27/2005 excision of skin lesion from mid back (benign) Dr. Tang OTHER 07/2005 Esophagectomy removed 6" of esophagus REMOVAL OF PROSTATE, FIRST STAGE 1999 TURP REMOVE CATARACT, INSERT LENS PROSTH Right 10/08/2019 REMOVE CATARACT, INSERT LENS PROSTH Left 10/22/2019 Review of patient's allergies indicates: Allergen Reactions Cat Dander Dog Dander Dust Environmental [Pollen] Losartan Other (Please comment) Hyperkalemia Ragweed Morphine Nausea/vomiting Review of Systems Constitutional: Positive for fatigue. Negative for appetite change and unexpected weight change. Respiratory: Negative for cough, shortness of breath and wheezing. Cardiovascular: Negative for chest pain, palpitations and leg swelling. Gastrointestinal: Negative for abdominal pain, blood in stool, constipation, diarrhea, nausea and vomiting. Genitourinary: Negative for dysuria and hematuria. Patient straight caths 6-7 times a day Musculoskeletal: Negative for back pain and gait problem. Neurological: Negative for dizziness, syncope and headaches. Psychiatric/Behavioral: Negative for confusion, decreased concentration and sleep disturbance. The patient is not nervous/anxious. OBJECTIVE: BP 98/60 | Pulse 56 | Temp 36.1 C (97 F) | Resp 14 | Ht 1.81 m (5' 11.25") | Wt 81.1 kg (178 lb14.4 oz) | SpO2 99% | BMI 24.78 kg/m | BSA 2.02 m Physical Exam Vitals and nursing note reviewed. Constitutional: General: He is not in acute distress. Appearance: Normal appearance. He is not toxic-appearing. HENT: Head: Normocephalic and atraumatic. Cardiovascular: Rate and Rhythm: Regular rhythm. Bradycardia present. Heart sounds: Normal heart sounds. No murmur heard. No gallop. Pulmonary: Effort: Pulmonary effort is normal. Breath sounds: Normal breath sounds. No wheezing, rhonchi or rales. Abdominal: General: Bowel sounds are normal. There is no distension. Palpations: Abdomen is soft. Tenderness: There is no abdominal tenderness. Musculoskeletal: Right lower leg: No edema. Left lower leg: No edema. Neurological: Mental Status: He is alert and oriented to person, place, and time. Mental status is at baseline. Motor: No weakness. Gait: Gait normal. Psychiatric: Mood and Affect: Mood normal. Behavior: Behavior normal. Thought Content: Thought content normal. Results for orders placed or performed in visit on 02/17/23 COMPREHENSIVE METABOLIC PANEL Result Value Ref Range BUN 25 (H) 6 - 20 mg/dL Creatinine 1.7 (H) 0.6 - 1.2 mg/dL Estimated Glomerular Filtration Rate 39 (L) >=60 mL/min Sodium 131 (L) 135 - 146 mmol/L Potassium 4.9 3.5 - 5.1 mmol/L Chloride 96 (L) 98 - 107 mmol/L CO2 26 22 - 32 mmol/L Anion Gap 9 7 - 15 mmol/L Glucose 112 70 - 120 mg/dL Albumin 3.8 3.8 - 5.0 g/dL AST 29 10 - 50 U/L Alkaline Phosphatase 63 35 - 130 U/L Bilirubin, Total 0.8 <=1.2 mg/dL Calcium 9.7 8.4 - 10.2 mg/dL Protein 6.3 6.0 - 8.3 g/dL ALT 19 10 - 50 U/L CBC Result Value Ref Range WBC 7.12 4.00 - 10.80 K/uL RBC 3.41 4.50 - 5.25 M/uL HGB 11.8 (L) 14.0 - 16.8 g/dL HCT 35.6 (L) 40.0 - 48.4 % MCV 104.4 82.0 - 99.5 fL MCH 34.6 27.0 - 34.0 pg MCHC 33.1 32.0 - 36.0 g/dL RDW 13.8 11.5 - 15.5 % PLT 297 140 - 400 K/uL MPV 12.5 6.6 - 11.1 fL nRBCs 0 <=0 /100 WBCs DIFFERENTIAL, AUTOMATED Result Value Ref Range WBC 7.12 4.00 - 10.80 K/uL Neutrophils % 71.3 40.0 - 75.0 % Lymphocytes % 13.9 (L) 18.0 - 42.0 % Monocytes % 7.9 1.0 - 11.0 % Eosinophils % 4.2 0.0 - 6.0 % Basophils % 1.3 0.0 - 2.0 % Immature Granulocytes % 1.4 0.0 - 2.0 % Absolute Neutrophils 5.08 1.80 - 7.70 K/uL Absolute Lymphocytes 0.99 (L) 1.00 - 4.80 K/ul Absolute Monocytes 0.56 0.00 - 1.10 K/uL Absolute Eosinophils 0.30 0.00 - 0.70 K/uL Absolute Basophils 0.09 0.00 - 0.20 K/uL Absolute Immature Granulocytes 0.10 0.00 - 0.20 K/uL *Note: Due to a large number of results and/or encounters for the requested time period, some results have not been displayed. A complete set of results can be found in Results Review. PLAN AND ASSESSMENT: S/P aortic valve replacement (Primary) Follow with cardiology and CT surgery as scheduled Pulmonary nodule, left Follow up CT chest in 6 months Paroxysmal atrial fibrillation (HCC) Continue Apixaban and Carvedilol Finish Amiodarone in 3 weeks Atherosclerosis of [place] coronary artery of [place] heart without angina pectoris Continue carvedilol, and ASA Aortic root enlargement (HCC) BPH without obstruction/lower urinary tract symptoms Gouty arthropathy Continue Allopurinol Disc disorder of lumbar region HTN, GOAL BELOW 140/90 Continue Coreg Neurogenic bladder Continue to Straight Cath Prediabetes Hypothyroidism due to acquired atrophy of thyroid Continue Levothyroxine Hypertensive kidney disease with stage 3b chronic kidney disease (HCC) Continue to follow with Nephrology Infrarenal abdominal 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 (HCC) Repeat US aorta in 08/2023 Dyslipidemia, goal LDL below 70 Need for RSV immunization - Abrysvo 120 MCG/0.5ML Intramuscular Solution Reconstituted (RSV Pre-Fusion F A&B Vac Rcmb); Inject 0.5 mL into a large muscle once for 1 dose. - RSV VAC., BIVALENT, PERFUSION F, PF,0.5 ML (ABRYSVO) Follow Up: Return if symptoms worsen or fail to improve. Yanick Canseco DO 3:16 PM 02/23/2023 documented in this encounter Nursing Notes * Argenis Sauer LPN - 02/23/2023 10:43 AM EST Patient presents for follow up, voices no complaints. documented in this encounter Plan of Treatment Upcoming Encounters Date Type Department Care Team (Late st Contact Info) Description 02/27/2023 11:00 AM EST Office Visit Cardiology, [facility] [address] [place] [address] Bessy Gill PA-C [facility] [place] [address] 03/15/2023 9:20 AM EST Office Visit Family Practice [address] [place] [address] [address] [place] [address] Yanick Canseco, 293 [facility] [place] [address] 03/17/2023 10:30 AM EST Office Visit [facility], [facility] [place] [address] Patricia Mejia CRNP [address] [facility] [address] 06/30/2023 11:20 AM EDT Office Visit Nephrology, [facility] [address] [place] [address] Ryan Issa MD [address] [place] [address] 08/18/2023 3:00 PM EDT Office Visit Nephrology, [facility] [address] [place] [address] Ryan Issa MD [address] [place] [address] 08/22/2023 11:00 AM EDT Imaging Radiology [facility] [address] [facility] [address] 02/27/2025 3:40 PM EST Office Visit Dermatology[address] [place] [address] Laure Arias PA-C [address] [place] [address] [place] [address] Health Maintenance Due Date Last Done Comments Colbert's Esophagus Surveilance 03/17/2019 03/17/2016, 04/29/2014, 03/23/2012, Additional history exists COVID-19 Vaccine ( season) 2022 04/19/2022, 12/06/2021, 02/24/2021, Additional history exists GFR 08/18/2023 02/17/2023, 10/15, 06/13/2022, Additional history exists Albumin/Creatinine Ratio 09/07/2023 023, 09/21/2021, 09/10/2013, Additional history exists TSH 10/26/2023 10/25/2022, 08/16, 05/27/2022, Additional history exists CKD PHOS USE SMARTSET 24387 12/14/202311/16, 10/11/2021, 03/18/2021, Additional history exists HbA1c 12/14/2023 12/13/2022, 08/16, 03/09/2022, Additional history exists CKD HGB USE SMARTSET 57547 02/18/202402/17, 02/17/2023, 10/25/2022, Additional history exists Depression [...] of this encounter Visit Diagnoses Diagnosis S/P aortic valve replacement- Primary Heart valve replaced by other means Pulmonary nodule, left Solitary pulmonary nodule Paroxysmal atrial fibrillation (HCC) Atrial fibrillation Atherosclerosis of [place] coronary artery of [place] heart without angina pectoris Aortic root enlargement (HCC) Other specified disorders of arteries and arterioles BPH without obstruction/lower urinary tract symptoms Hypertrophy of prostate without urinary obstruction and other lower urinary tract symptoms (LUTS) Gouty arthropathy Gouty arthropathy, unspecified Disc disorder of lumbar region Other and unspecified disc disorder of lumbar region HTN, GOAL BELOW 140/90 Unspecified essential hypertension Neurogenic bladder Neurogenic bladder, NOS Prediabetes Other abnormal glucose Hypothyroidism due to acquired atrophy of thyroid Hypertensive kidney disease with stage 3b chronic kidney disease (HCC) Infrarenal abdominal 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 (HCC) Dyslipidemia, goal LDL below 70 Other and unspecified hyperlipidemia Need for RSV immunization Need for prophylactic vaccination and inoculation against respiratory syncytial virus documented in this encounter Care Teams Portuguese Tutor Relationship Specialty Start Date End Date Yanick Canseco DO [address] [place] [address] PCP - General Internal Medicine 04/07/22 documented as of this encounter
--- OUTSIDE RECORDS SUMMARY | 2023-03-04 16:28 | External Medical Summary | Summary of Care ---
Author Name Unknown Organization [facility] Address [address] [place] [address] Phone [phone] Care Team Providers Care Inventory And Pricing Associate Name Role Phone Yanick Canseco DO Primary Care Provider [phone] Reason for Visit * Reason Onset Date Comments Follow Up 02/20/2023 Encounter Details Date Type Department Care Team (Late st Contact Info) Description 02/20/2023 Telephone Family Practice [address] [facility] [address] [place] [address] Yanick Canseco DO [address] [place] [address] Follow Up Allergies Active Allergy Reactions Criticality [...] Tablet by mouth every evening. 0 Active [place]-3 Fatty Acids (ULTRA OMEGA 3) 952 MG [...] Sublingual Tablet Sublingual (Nitrostat)Indicat ions:Atheroscleros is of chene[place] coronary artery of [place]ne[place] heart without angina pectoris Place under the [...] bypass graft 10/15/19 08 Coronary atherosclerosis of [place] coronary celina ry 10/15/2007 BPH without obstruction/lower urinary tract symp toms 09/08/2005 Other allergic rhinitis 02/28/2001 Overview: ICD-10 update of inactive term Hastings's esophagus with high grade dysplasia Overview: Hastings's esophagus: egd by Dr Grant () f/u EGD 2001- per pt Cyst of kidney, acquired Overview: followed at [facility] documented as of this encounter (statuses as [...] 3.4 by CTA 08/09/2012 [facility] Other*[id number] 03/08/2011 05/24/2016 Shortness of breath 02/22/2011 12/09/19 [...] encounter Miscellaneous Notes * Telephone Encounter - Yanick Canseco DO [...] Lab results also: Renal function decreased slightly. Annamarie finished Furosemide and KCl Repeat BMP 3 days. RN Lead:Argenis Aparicio RN Date: 02/20/2023 Patient seen for ASC: PAF Assessment: Pt. seen: 02/17/2023 Treatment plan: continue with amiodarone 200 mg daily x 30 days per [facility]23 Call to pt-no answer-message left to call office. documented in this encounter Plan of Treatment Upcoming Encounters Date Type Department Care Team (Late st Contact Info) Description 02/22/2023 1:00 PM EST Office Visit Nephrology, [facility] [address] [facility] [place] [address] Ryan Issa MD 200 [facility] [place] [address] 02/23/2023 10:40 AM EST Office Visit Family Practice [address] [place] [address] 293 [place] [address] Yanick Canseco DO 293 [place] [address] 02/23/2023 3:40 PM EST Office Visit D[place]atology, [address] [place] [address] Laure Arias PA-C [address] [place] [address] [place] [address] 02/27/2023 11:00 AM EST Office Visit Cardiology, [facility] 132 [facility] [place] [address] Bessy Gill PA-C 132 [facility] [place] [address] 03/15/2023 9:20 AM EST Office Visit Family Practice [address] [place] 293 [place] [address] Yanick Canseco, 293 [facility] [place] [address] 03/17/2023 10:30 AM EST Office Visit Gastroenterology, [facility] 132 [facility] [place] [address] Patricia Mejia CRNP [facility] [address] 06/30/2023 11:20 AM EDT Office Visit Nephrology, [facility] [address] [place] [address] Ryan Issa MD [address] [place] [address] 08/18/2023 3:00 PM EDT Office Visit Nephrology, [facility] [address] [place] [address] Ryan Issa MD 200 [facility] [place] [address] 08/22/2023 11:00 AM EDT Imaging Radiology [facility] [address] [facility] 132 [facility] [place] [address] Scheduled Orders Name Type Priority Associated Diagnoses [...] Additional history exists CKD PHOS USE SMARTSET 46031 12/14/202311/16, 10/11/2021, 03/18/2021, Additional history exists HbA1c 12/14/2023 12/13/2022, 08/16, 03/09/2022, Additional history exists CKD HGB USE SMARTSET 71482 02/18/202402/17, 02/17/2023, 10/25/2022, Additional history exists Depression [...] ureter documented in this encounter Care Teams Inventory And Pricing Associate Relationship Specialty Start Date End Date Yanick Canseco DO [address] [place] [address] PCP - General Internal Medicine 04/07/22 documented as of this encounter
--- OUTSIDE RECORDS SUMMARY | 2023-03-04 16:28 | External Medical Summary | Summary of Care ---
Author Name Unknown Organization [facility] Address [address] [place] [address] Phone [phone] Care Team Providers Care Hr Operations Advisor Name Role Phone Yanick Canseco DO Primary Care Provider [phone] Reason for Visit * Reason Comments Chronic Kidney Disease (CKD) Encounter Details Date Type Department Care Team (Late st Contact Info) Description 02/22/2023 1:00 PM EST Office Visit Nephrology, [facility] [address] [place] [address] Ryan Issa MD [address] [facility] [place] [address] Stage 3b chronic kidney disease (HCC)*; Nephrotic range proteinuria Allergies Active Allergy Reactions Criticality Noted Date [...] Tablet by mouth every evening. 0 Active Ivanhoe-3 Fatty Acids (ULTRA OMEGA 3) 952 MG [...] Sublingual Tablet Sublingual (Nitrostat)Indicat ions:Atheroscleros [place] of [place] coronary artery of [place] heart without angina pectoris Place under the [...] bypass graft 10/15/19 08 Coronary atherosclerosis of [place] coronary celina ry 10/15/2007 BPH without obstruction/lower urinary tract symp toms 09/08/2005 Other allergic rhinitis 02/28/2001 Overview: ICD-10 update of inactive term Colbert's esophagus with high grade dysplasia Overview: Colbert's esophagus: egd by Dr Grant () f/u EGD 2001- per pt Cyst of kidney, acquired Overview: followed at [facility] documented as of this encounter (statuses as [...] 3.4 by CTA 08/09/2012 [facility] [facility] Other*[id number] 03/08/2011 05/24/2016 Shortness of breath 02/22/2011 12/09/19 [...] Sign Reading Time Taken Comments Blood Pressure 128/74 02/22/2023 1:05 PM EST Pulse 52 02/22/2023 1:05 PM EST Temperature 35.9 C (96.7 F) 02/22/2023 1:05 PM ES T Respiratory Rate - - Oxygen Saturation - - Inhaled Oxygen Concentration - - Weight 80.3 kg (177 lb 1.6 oz) 02/22/2023 1:05 P M EST Height - - Body Mass Index 24.53 02/17/2023 10:12 AM EDT documented in this encounter Progress Notes * Ryan Issa MD - 02/22/2023 1:08 PM EST Chief Complaint Patient presents with Chronic Kidney Disease (CKD) HPI: 82/M being seen for nephrotic range proteinuria. Has more than 4 g proteinuria but without edema and normal albumin. He has CKD 3 with baseline creatinine around 1.4 . Has hypertension and atrophic right kidney of 7.4cm which has been known for many years. Also has severe urinary retention requiring straight catheterization 6-7 times per day. Does not have diabetes . History of coronary artery disease status post CABG . h/o esophageal cancer with esophagectomy over 5 yrs ago. No tobacco. No nsaids. No myeloma. No diabetes. Hx of kidney stones, none recently. Also status post bladder stimulator for neurogenic bladder but did not work. Declined urorisk in the past.was admitted in the hospital because of atrial fibrillation and related issues in March 2022. Then was admitted with pneumonia May 2022 Since last visit --had AVR surgery 02/07 and [facility] 02[facility]14 [facility] and No renal issues. Discharged on Lasix 20 daily for 1 week and today was his last day. Had labs done 02/17 and creat up a bit to 1.7 and na down a bit 131 and hgb dropped to 11.8. Denies any other symptoms. Denies nausea vomiting chest pain shortness of breath orthopnea PND lower extremity edema. PMH: Patient Active Problem List Diagnosis Code Other allergic rhinitis J30.89 Colbert's esophagus with high grade dysplasia K22.711 Cyst of kidney, acquired N28.1 BPH without obstruction/lower urinary tract symptoms N40.0 History of coronary artery bypass graft Z95.1 Coronary atherosclerosis of [place] coronary artery I25.10 Gouty arthropathy M10.9 Disc [...] Take 1 Tablet by mouth every evening. Ivanhoe-3 Fatty Acids (ULTRA OMEGA 3) 952 MG [...] 1 Tablet by mouth in the morning. Catheters by Ureteral route 7 times a day. Uses 14 Caude catheters, self cath's 7 times daily No current facility-administered medications for this visit. Past Medical History: Diagnosis Date Abdominal aortic aneurysm (HCC) 02/20/2009 Aortic root enlargement ([facility]) 12/28/2022 Aortocoronary bypass status 10/15/2007 Atrial fibrillation ([facility]) 02/16/2010 Chronic coronary artery disease 09/22 CABGx4 GIFFORD to LAD, SVG to ramus, SVG to OM, SVG to RCA DISC DIS VFA-ISF-GHIZTH 02/20/2009 Dyslipidemia, goal LDL below 100 03/30/2009 Per Lipid Taxonomy. Gouty arthropathy History of esophageal cancer Colbert's esophagus: egd by Dr Grant () f/u EGD 2001- neg per pt HTN, goal to be determined HYPERTROP PROSTATE W/O URIN OB 09/08/2005 Hypothyroidism Kidney disease, chronic, stage III (GFR 30-59 ml/min) ([facility]) 09/10/2013 MAL TIKI ESOPHAGUS NOS Colbert's esophagus: egd by Dr Grant () f/u EGD 2001- neg per pt Moderate to severe aortic insufficiency 03/02/2021 Neurogenic bladder 14 Fr straight tip self cath 6-7 times per day Pulmonary nodule, left 02/17/2023 Past Surgical History: Procedure Laterality Date BYPASS GRAFT ANGIOGRAPHY W/LEFT HEART CATH 03/08/2011 BYPASS GRAFT ANGIOGRAPHY W/LEFT HEART CATH performed by RACHEL JACOB at [facility] [place] [place] CABG, ARTERIAL, FOUR OR MORE 09/21/2007 four vessel CAGB CARPAL TUNNEL SURGERY Right 03/2017 COLONOSCOPY 04/2006 CYSTOSCOPY 10/09/2017 done [address] office [address] Scott [place], FLEXIBLE, DIAGNOSTIC 03/22/2012 UPPER GI ENDOSCOPY DIAGNOSTIC performed by Odalys Cárdenas MD at ENDOSCOPY [facility] EGD, FLEXIBLE, DIAGNOSTIC 03/23/2012 UPPER GI ENDOSCOPY DIAGNOSTIC performed by Odalys Cárdenas MD at ENDOSCOPY [facility] BX negative for Colbert's- repeat in 2 years EGD, FLEXIBLE, DIAGNOSTIC N/A 04/29/2014 Unremarkable post esophagectomy anatomy, without evidence of colbert's. repeat in 3 yrs/ESOPHAGOGASTRODUODENOSCOPY (EGD), FLEXIBLE, TRANSORAL, DIAGNOSTIC performed by Odalys Cárdenas MD at ENDOSCOPY [facility] EGD, FLEXIBLE, DIAGNOSTIC N/A 03/17/2016 normal bx/ESOPHAGOGASTRODUODENOSCOPY (EGD), FLEXIBLE, TRANSORAL, DIAGNOSTIC performed by Babatunde Carr MD at ENDOSCOPY [facility] EGD, FLEXIBLE, DIAGNOSTIC N/A 11/19/2019 small amount of retained bilious fluid of stomach, moderate edema and erythema of mucosa in stomach/retained food in stomach/biopsies normal/EGD/[facility] EGD, FLEXIBLE, W/BIOPSY 08/21/2007 No sx of Colbert's EGD, FLEXIBLE, W/BIOPSY 12/01/2009 done anastamosis and GE junction @ 20cm bx done--no eidence of Barret[place] IMPLANT MESH W/ ABD HERNIA REPR/DEBRIDE 12/2006 IMPLANT NEUROELECTRODES, SACRAL N/A 09/21/2022 INFORMATION 2002 Other Ventral hernia repair R lower abdomen NONE 2002 colonoscopy at [facility]. OTHER 10/27/2005 excision of skin lesion from mid back (benign) Dr. Tang OTHER 07/2005 Esophagectomy removed 6" of esophagus REMOVAL OF PROSTATE, FIRST STAGE 1999 TURP REMOVE CATARACT, INSERT LENS PROSTH Right 10/08/2019 REMOVE CATARACT, INSERT LENS PROSTH Left 10/22/2019 Review of patient's allergies indicates: Allergen Reactions Cat Dander Dog Dander Dust Environmental [Pollen] Losartan Other (Please comment) Hyperkalemia Ragweed Morphine Nausea/vomiting Family History Problem Relation Age of Onset Cancer Grandfather (Maternal) Cancer of Liver Diabetes Father Stroke Mother Stroke Father Other (Other) Father Hemachromatosis Family Status Relation Status MGMA PGMA PGFA MGFA Fa Mo Social History Socioeconomic History Marital status: Spouse name: Pamela Number of children: 2 Years of education: Not on file Highest education level: Not on file Occupational History Employer: [employer] Tobacco Use Smoking status: Former Packs/day: 1.00 Years: 20.00 Additional pack years: 0.00 Total pack years: 20.00 Types: Cigarettes Quit date: 04/17/1982 Years since quittin.8 Passive exposure: Past Smokeless tobacco: Never Tobacco comments: no passive smoke Vaping Use Vaping Use: Never used Substance and Sexual Activity Alcohol use: Not Currently Comment: rarely Drug use: No Sexual activity: Not Currently Comment: decreased libido Other Topics Concern Service Not Asked Blood Transfusions Yes Caffeine Concern Not Asked Occupational Exposure Not Asked Hobby Hazards Not Asked Sleep Concern Not Asked Stress Concern Not Asked Weight Concern Not Asked Special Diet Yes Back Care Not Asked Exercise Yes Bike Helmet Not Asked Seat Belt Yes Self-Exams Not Asked Social History Narrative ; 2 grown children; 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; Social Determinants of Health Financial Resource Strain: Not on file Food Insecurity: No Food Insecurity (02/17/2023) Hunger Vital Sign Worried About Running Out of Food in the Last Year: Never true Ran Out of Food in the Last Year: Never true Transportation Needs: Not on file Physical Activity: Not on file Stress: Not on file Social Connections: Not on file Intimate Partner Violence: Not on file Housing Stability: Not on file Resulting Agency: Review of Systems Dysuria-better Urinary Frequency-better Twelve systems reviewed and negative Objective: BP 128/74 (BP Site: Right Arm, BP Position: Sitting, BP Cuff Size: Regular) | Pulse 52 | Temp 35.9 C (96.7 F) (Tympanic) | Wt 80.3 kg (177 lb 1.6 oz) | BMI 24.53 kg/m | BSA 2.01 m Physical Exam- General: alert, healthy, no distress, well nourished and well developed Head: Normocephalic, No masses, lesions, tenderness or abnormalities Neck: supple, no adenopathy, no bruits Heart: regular rate & rhythm, no murmurs and no gallops Lungs: clear Abdomen: abdomen soft, non-tender and no masses or organomegaly Extremities: no joint deformities, effusion, or inflammation, no edema, no clubbing Neuro Exam: alert & oriented x 3 with fluent speech, no focal motor/sensory deficits, gait normal BP Readings from Last 5 Encounters: 02/22/23 128/74 02/17/23 118/62 01/18/23 126/50 12/28/22 108/60 12/13/22 140/72 Wt Readings from Last 5 Encounters: 02/22/23 80.3 kg (177 lb 1.6 oz) 02/17/23 80.7 kg (178 lb) 01/18/23 82.1 kg (181 lb) 12/28/22 83 kg (183 lb) 12/13/22 84.9 kg (187 lb 1.6 oz) NEPH-FLOW Latest Ref Rng & Units 03/18/2021 09/20/2021 10/11/2021 Bun 6 - 20 mg/dL 23 (H) 25 (H) 26 (H) Cr 0.6 - 1.2 mg/dL 1.4 (H) 1.6 (H) 1.3 (H) eGFR >=60 mL/min 47 (L) 42 (L) 54 (L) eGFR >60 K 3.5 - 5.1 mmol/L 4.7 4.7 4.8 Hb 14.0 - 16.8 g/dL 15.2 15.7 Pro/Cr ratio <150 mg/g 4,363 (H) Microalb/cr ratio <31 mg/g creat Recent Labs Units 02/17/23 1151 10/25/22 1442 06/13/22 1229 SODIUM - [facility] mmol/L 131* 137 137 POTASSIUM - [facility] mmol/L 4.9 4.6 4.8 CHLORIDE - [facility] mmol/L 96* 104 103 CO2 - [facility] mmol/L 23 BUN - [facility] mg/dL 25* 21* 42* CREATININE - [facility] mg/dL 1.7* 1.3* 1.5* ESTIMATED GLOMERULAR FILTRATION RATE - [facility] mL/min 39* 57* 48* Recent Labs Units 02/17/23 1151 10/25/22 1442 06/13/22 1229 HGB - [facility] g/dL 11.8* 15.0 15.9 Recent Labs Units 02/17/23 1151 12/13/22 1053 10/25/22 1442 06/13/22 1229 05/27/22 1221 03/09/22 1034 10/11/21 1149 09/20/21 0757 03/18/21 1140 CALCIUM - [facility] mg/dL 9.7 -- 9.7 9.6 < > 10.0 10.0 9.9 9.6 PHOSPHORUS - [facility] mg/dL -- 3.1 -- -- -- -- 3.3 -- 2.9 25-HYDROXY VITAMIN D - [facility] ng/mL -- -- -- -- -- 72 -- 72 -- PTH - [facility] pg/mL -- -- -- -- -- -- 33 -- 35 < > = values in this interval not displayed. Recent Labs Units 12/13/22 1053 09/05/22 1057 03/09/22 1034 HEMOGLOBIN A1C - [facility] % 6.2* 6.1* 6.1* Recent Labs Units 09/06/22 1130 04/01/22 1450 09/21/21 1024 03/18/21 1146 03/05/21 1543 ALBUMIN / CREATININE RATIO, URINE - [facility] mg/g Creat 1,506* -- 2,052* -- -- PROTEIN/ CREATININE RATIO, URINE - [facility] mg/g -- 2,970* -- 4,363* 4,898* ASSESSMENT: Stage 3b chronic kidney disease (HCC) (Primary) Nephrotic range proteinuria CKD 3A to 3B with nephrotic range proteinuria but without nephrotic syndrome. Etiology of nephrotic range proteinuria is not entirely clear. Most likely related with atrophic right kidney /hypertension. No need of renal biopsy No edema at all Normal albumin. Most recent creatinine and GFR was stable at 1.7 and 39. Given that he does straight catheterization 5-6 times per day he is always at risk of UTI. Unfortunately the bladder stimulator did not work had AVR surgery 02/07 and discharged 02/14 at the [facility] and no complications and No renal issues. Discharged on Lasix 20 daily for 1 week and today was his last day. Had labs done 02/17 andcreat up a bit to 1.7 and na down a bit 131 and hgb dropped to 11.8. Will like to do labs as below again on 02/27 so that he will be off lasix for 5 days at the time oflabs. Also reminded that with low na he should not drink excessive water/fluid--limit to less than 60 Oz per day - CBC WITH WBC DIFFERENTIAL; Future; Expected date: 02/22/2023 - RENAL FUNCTION PANEL; Future; Expected date: 02/22/2023 - IRON SCREEN, INCLUDING TIBC; Future; Expected date: 02/22/2023 Nephrotic range proteinuria H/o this Without nephrotic syndrome. He has had nephrotic range proteinuria but the most recent was1.5 g. No edema and normal alb. Follow Up: Return in about 6 months (around 08/23/2023) for Clinic Visit. | For: Clinic Visit | Check-out note: Blood work to be done On Tuesday 02/27. Ryan Issa MD documented in this encounter Nursing Notes * Monique Lau LPN - 02/22/2023 1:04 PM EST Return patient- had open heart surgery on 02/07. D/c 02/14. Pt stated no leg swelling. documented in this encounter Plan of Treatment Upcoming Encounters Date Type Department Care Team (Late st Contact Info) Description 02/23/2023 10:40 AM EST Office Visit [address] [place] [address] Yanick Canseco, [address] [place] [address] 02/23/2023 3:40 PM EST Office Visit Dermatology[address] [address] Laure Arias PA-C [address] [place] [address] [place] [address] 02/27/2023 11:00 AM EST Office Visit [facility], [facility] [address] [facility] [place] [address] Bessy Gill [facility]-C [address] [facility] [place] [address] 03/15/2023 9:20 AM EST Office Visit [address] [place] [address] Yanick Canseco, [address] [place] [address] 03/17/2023 10:30 AM EST Office Visit Gastroenterology, [facility] [address] [place] [address] Patricia Mejia CRNP [address] [place] [address] 06/30/2023 11:20 AM EDT Office Visit Nephrology, [facility] [address] [place] [address] Ryan Issa MD [address] [place] [address] 08/18/2023 3:00 PM EDT Office Visit Nephrology, [facility] [address] [place] [address] Ryan Issa MD [address] [place] [address] 08/22/2023 11:00 AM EDT Imaging Radiology [facility] [place] [address] Scheduled Orders Name Type Priority Associated Diagnoses Orde r Schedule CBC WITH WBC DIFFERENTIAL Lab Routine Stage 3b chronic kidney disease (HCC) Expected: 02/22/2023 (Approximate), Expires: 08/21/2023 RENAL FUNCTION PANEL Lab Routine Stage 3b chronic kidney disease (HCC) Expected: 02/22/2023 (Approximate), Expires: 08/21/2023 IRON SCREEN, INCLUDING TIBC Lab Routine Stage 3b chronic kidney disease (HCC) Expected: 02/22/2023 (Approximate), Expires: 08/21/2023 Health Maintenance Due Date Last Done Comments Colbert's Esophagus Surveilance 03/17/2019 03/17/2016, 04/29/2014, 03/23/2012, Additional history exists COVID-19 Vaccine ( season) 2022 04/19/2022, 12/06/2021, 02/24/2021, Additional history exists GFR 08/18/2023 02/17/2023, 10/15, 06/13/2022, Additional history exists Albumin/Creatinine Ratio 09/07/2023 023, 09/21/2021, 09/10/2013, Additional history exists TSH 10/26/2023 10/25/2022, 08/16, 05/27/2022, Additional history exists CKD PHOS USE SMARTSET 91414 12/14/202311/16, 10/11/2021, 03/18/2021, Additional history exists HbA1c 12/14/2023 12/13/2022, 08/16, 03/09/2022, Additional history exists CKD HGB USE SMARTSET 29000 02/18/202402/17, 02/17/2023, 10/25/2022, Additional history exists Depression [...] as of this encounter Visit Diagnoses Diagnosis Stage 3b chronic kidney disease (HCC)- Primary Nephrotic range proteinuria Proteinuria documented in this encounter Care Teams Hr Operations Advisor Relationship Specialty Start Date End Date Yanick Canseco DO [address] [place] [address] PCP - General Internal Medicine 04/07/22 documented as of this encounter
--- OUTSIDE RECORDS SUMMARY | 2023-03-04 16:28 | External Medical Summary | Summary of Care ---
Author Name Unknown Organization [facility] Address [address] [place] [address] Phone [phone] Care Team Providers Care Program Coordinator Executive Education Name Role Phone Yanick Canseco DO Primary Care Provider [phone] Reason for Referral * Evaluate & Treat - Unlimited Visits (Within 10 days (routine)) - Authorized Specialty Diagnoses / Procedures Referred By Jose rivero Referred To Contact Nephrology Diagnoses Hypertensive kidney disease with stage 3b chronic kidney disease (HCC) Yanick Canseco DO [address] [place] [address] Referral ID Status Reason Start Date Expiration Date Visits Requested Visits Authorized [id number] Authorized Specialty Services Required 02/17/2023 999 999 Question Answer Referral Priority Within 10 days (routine) Where should this appointment be scheduled? [facility] What condition is this patient being seen for? Chronic kidney disease * Precert (Within 10 days (routine)) - Pending Review Specialty Diagnoses / Procedures Referred By Jose rivero Referred To Contact Radiology Diagnoses Pulmonary nodule, left Procedures CT CHEST WO CONTRAST Yanick Canseco DO [address] [place] [address] Referral ID Status Reason Start Date Expiration Date V isits Requested Visits Authorized [id number] Pending Review 08/18/2023 999 999 Reason for Visit * Reason Onset Date Comments Hospital Follow-Up [facility] Hospital Follow-Up 02/17/2023 Encounter Details Date Type Department Care Team (Natalie st Contact Info) Description 02/17/2023 10:00 AM EDT Office Visit Family Practice [address], [place] [address] [place] [phone] Yanick Canseco, [address] [place] [address] S/P aortic valve replacement*; Paroxysmal atrial fibrillation (HCC); Pulmonary nodule, left; BPH without obstruction/lower urinary tract symptoms; History of coronary artery bypass graft; Gouty arthropathy; HTN, GOAL BELOW 140/90; Dyslipidemia, goal LDL below 70; Neurogenic bladder; Prediabetes; Hypothyroidism due to acquired atrophy of thyroid; Infrarenal abdominal 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 (HCC); Risk and functional assessment; Constipation, unspecified constipation type; Hypertensive kidney disease with stage 3b chronic kidney disease (HCC); Hospital discharge follow-up Allergies Active Allergy Reactions [...] Tablet by mouth every evening. 0 Active Itmann-3 Fatty Acids (ULTRA OMEGA 3) 952 MG CAPSIndications:D yslipidemia, goal LDL below 100 One tab twice daily 180 Cap 1 04/19/2018 Active Additional Information Patient taking differently: 1 Capsule Oral BID(Non-Specified), (No instructions reported), Reported on 02/17/2023 Coenzyme Q10 100 MG Oral Tablet Take 1 Tablet by mouth in the morning. 0 Active DHEA 50 MG Oral Tablet Take 50 mg by mouth daily. 0 Active Nitroglycerin 0.4 MG Sublingual Tablet Sublingual (Nitrostat)Indica tions:Atheroscler osis of [place] coronary artery of [place] heart without angina pectoris Place under the [...] 04/19/2022 Active Allopurinol 100 MG Oral Tablet (Zyloprim)Indicat ions:Gouty arthropathy TAKE ONE TABLET BY MOUTH IN [...] Omeprazole 40 MG Oral Capsule Delayed Release (PriLOSEC)Indicat ions:History of esophageal cancer Take 1 Capsule by [...] 12/08/2022 Active Carvedilol 12.5 MG Oral Tablet (Coreg)Indication s:Atrial fibrillation with RVR (HCC) TAKE TWO TABLETS [...] in the morning. 0 02/14/2023 3 Active Polyethylene Glycol 3350 17 GM Oral Packet Take 1 Packet by mouth in the morning. 0 3 Discontinu ed(Medicat ion List Clean Up) documented as of this encounter (statuses as [...] bypass graft 10/15/19 08 Coronary atherosclerosis of [place] coronary celina ry 10/15/2007 BPH without obstruction/lower urinary tract symp toms 09/08/2005 Other allergic rhinitis 02/28/2001 Overview: ICD-10 update of inactive term Hastings's esophagus with high grade dysplasia Overview: Hastings's esophagus: egd by Dr Grant () f/u EGD 2001- neg per pt Cyst of kidney, acquired Overview: followed at [facility] documented as of this encounter (statuses as [...] 3.4 by CTA 08/09/2012 [facility] Other*[id number] 03/08/2011 05/24/2016 Shortness of breath 02/22/2011 12/09/19 [...] LNP-s, No Preserve , Adiel-sucrose, Ages 12+ (SGB) 12/06/2021 COVID-19, mRNA, LNP-s, PF, B ooster, [...] Sign Reading Time Taken Comments Blood Pressure 118/62 02/17/2023 10:12 AM EDT Pulse 52 02/17/2023 10:12 AM EDT Temperature 36.7 C (98 F) 02/17/2023 10:12 AM EDT Respiratory Rate 14 02/17/2023 10:12 AM EDT Oxygen Saturation 95% 02/17/2023 10:12 AM EDT Inhaled Oxygen Concentration - - Weight 80.7 kg (178 lb) 02/17/2023 10:12 AM EDT Height 181 cm (5' 11.") 02/17/2023 10:12 AM ED T Body Mass Index 24.65 02/17/2023 10:12 AM EDT documented in this encounter Patient Instructions * Patient Instructions* Argenis Sauer, JUAN - 02/17/2023 10:11 AM EDT Patient Instructions - Fall Prevention (This education is for all patients over 65 regardless of symptoms) Remember to take your current medications as prescribed. In order to prevent falls, you are encouraged to: Exercise Utilize assistive/adaptive devices Avoid multifocal lenses when walking Avoid hazards in home Maintain a regular toileting schedule Any questions please contact our office. Preventing Falls in the Home (This education is for all patients over 65 regardless of symptoms) As you get older, falls are more likely. Thats because your reaction time slows. Your muscles and joints may also get stiffer, making them less flexible. Illness, medications, and vision changes can also affect your balance. A fall could leave you unable to live on your own. To make your home safer, follow these tips: Floors Put nonskid pads under area rugs Remove throw rugs Replace worn floor coverings Tack carpets firmly to each step on carpeted stairs. Put nonskid strips on the edges of uncarpeted stairs Keep floors and stairs free of clutter and cords Arrange furniture so there are clear pathways Clean up any spills right away Bathrooms Install grab bars in the tub or shower Apply nonskid strips or put a nonskid rubber mat in the tub or shower Sit on a bath chair to bathe Use bathmats with nonskid backing Lighting Keep a flashlight in each room Put a nightlight along the pathway between the bedroom and the bathroom [employer] Patient Education Copyright 2008 - 2010 [employer] except where otherwise noted Preventing Falls: Exercises to Improve Balance, Flexibility, Strength, and Staying Power (This education is for all patients over 65 regardless of symptoms) Certain types of exercises may help make you less likely to fall. Try the ones below. Or do other exercises that your healthcare provider suggests. Depending on your health, you may need to start slowly. Dont let that stop you. Even small amounts of exercise can help you. Be sure to talk to yourhealthcare provider before starting any exercise program. Improve Balance Many types of exercise can help improve balance. Kyle chi and yoga are good examples. Heres another one to try. You can do it anytime and almost anywhere. Stand next to a counter or solid support. Push yourself up onto your tiptoes. Hold for 5 seconds. If you start to lose your balance, hold on to the counter. Rest and repeat 5 times. Work up to holding for 20 to 30 seconds, if you can. Increase Flexibility Being more flexible makes it easier for you to move around safely. Try exercises like the seated hamstring stretch. Sit in a chair and put one foot on a stool. Straighten your leg and reach with both hands down either side of your leg. Reach as far down your leg as you can. Hold for about 20 seconds. Go back to the starting position. Then repeat 5 times. Switch legs. Build Strength Resistance exercises help build strength. You can do them without equipment. Or you can use weights, elastic bands, or special machines. One such exercise is called the biceps curl. You can hold a 1 pound weight or even a can of soup. Do this exercise at least 3 times a week. Strive for everyday. Sit up straight in a chair. Keep your elbow close to your body and your wrist straight. Bend your arm, moving your hand up to your shoulder. Then slowly lower your arm. Repeat 5 times. Switch to the other arm. Build Your Staying Power Aerobic exercises make your heart and lungs stronger so you can keep moving longer. Walking and swimming are two of the best types of exercises you can do. Using a stationary bike is great, too. Find an aerobic exercise that you enjoy. Start slowly and build up. Even 5 minutes is helpful. Aimfor a goal of 30 minutes, at least 3 times a week. You dont have to do 30 minutes in one session. Break it up and walk a little throughout the day. More Helpful Tips Start easy. Slowly work up to doing more. Talk with your healthcare provider about the best exercises for you. Call senior centers or health clubs about exercise programs. If needed, have a family member watch you walk every so often to check your stability. Exercise with a friend. Choose an activity you both enjoy. Try exercises that you can do anytime, anywhere. Here are two examples. Have someone with you when you first try these: Practice walking by placing one foot right in front of the other. Stand up and sit down 10 times. Repeat this throughout the day. [employer] Patient Education Copyright 2008 [employer] except where otherwise noted. Preventing Falls: Moving Safely Using a Cane or Walker (This education is for all patients over 65 regardless of symptoms) Keep the cane away from your feet so you dont trip. A walking aid, such as a cane or walker, can help you stay more independent and avoid falls. Remember to keep your walking aid within easy reach when youre in a chair or in bed. And learn how to use it safely so you dont injure yourself. Using a Cane If you have a stronger side, hold the cane on that side. Get your balance. Move the cane and your weaker leg forward. Support your weight on both the cane and your weaker side. Step with your stronger leg. Start again from step 1. If youre using a folding walker, be sure you know how to lock it open. Check that its locked open before each use. Using a Walker Roll the walker (or lift it, if youre using one without wheels) forward about 12 inches. Step forward with your weaker leg first. Use the walker to help keep your balance. Bring your other foot forward to the center of the walker. Start again from step 1. Helpful Tips Check with your healthcare provider about the right walking aid to use. Ask about a walker with a seat attached. Check the tips of your cane or walker to make sure they have nonskid covers. Move slowly from room to room. Dont koo. Sit down to get dressed. Use a erik pack or backpack to keep your hands free. Get help for jobs that mean climbing, even on a stepstool. [employer] Patient Education Copyright 2008 - 2010 [employer] except where otherwise noted. Treating Urinary Incontinence in Men (This education is for all patients over 65 regardless of symptoms) You can't always control the release of urine. You may leak urine. Or you may not be able to hold your urine until you can get to a bathroom. This is called urinary incontinence. The problem can be managed. Talk to your doctor about your treatment options. Taking Medications Prescription medications may help you. They may: Help the sphincter to work better. (This is the muscle that closes to keep urine from leaking out of the bladder.) Help stop the bladder from neetu too often to push urine out. Help the bladder muscles contract with more force. Help relax the sphincter muscle and allow urine to flow more freely. Making Changes to Your Routine Certain changes in your daily routine may help. These include: Avoiding caffeine and alcohol. Using timed voiding. This is following a schedule for drinking fluids and urinating. Doing Kegel exercises daily. These exercises involve tightening the muscles in your sphincter and around your bladder to help strengthen them. Your doctor can explain how to do them. Using a Catheter A catheter is a narrow tube that is inserted through the urethra into the bladder. It drains urine.A condom catheter covers the penis. It channels urine into a collection bag. It is worn most of thetime. Intermittent catheterization means inserting a catheter to drain the bladder, then removing it. This is done on a regular schedule. Having Surgery If other options don't work, surgery may be recommended. If surgery is an option, your healthcare provider can discuss it with you and explain its risks and benefits. Healing After Prostate Surgery Surgery on the prostate gland can cause incontinence. Most often, the incontinence is only for a short time. It clears up when healing is complete. Very rarely, prostate surgery can result in permanent incontinence. documented in this encounter Progress Notes * Argenis Sauer LPN - 02/17/2023 11:29 AM EDT EKG per order * Yanick Canseco DO - 02/17/2023 11:08 AM EDT SUBJECTIVE: Hubert Persaud is a 82 year old male. Chief Complaint Patient presents with Hospital Follow-Up [facility] Follow-Up Recent Admission: Patient was recently admitted to [facility]. The date of discharge was 02/15/2023. Discharge report received and reviewed. HPI: Patient is an 82 year old [...] hospital follow up. Patient was admitted to [facility] and had AVR, bilatral MAZE, and ISAÍAS ligation to treat severeAortic Valve Insufficency. Patient is feeling well. No chest pain or shortness of breath are present. Appetite is improving. Patient has left lung nodule found incidentally on CT chest. Follow up CT chest recommended in 6 months.Patient is scheduled for Cardiology follow up. Patient Active Problem List Diagnosis Code Other allergic rhinitis J30.89 Hastings's esophagus with high grade dysplasia K22.711 Cyst of kidney, acquired N28.1 BPH without obstruction/lower urinary tract symptoms N40.0 History of coronary artery bypass graft Z95.1 Coronary atherosclerosis of [place] coronary artery I25.10 Gouty arthropathy M10.9 Disc [...] Take 1 Tablet by mouth every evening. Itmann-3 Fatty Acids (ULTRA OMEGA 3) 952 MG [...] 1 Tablet by mouth in the morning. Furosemide 20 MG Oral Tablet (Lasix) Take 1 Tablet by mouth in the morning. Potassium Chloride ER 10 MEQ Oral Tablet Extended Release Take 1 Tablet by mouth in the morning. Nitroglycerin 0.4 MG Sublingual Tablet Sublingual (Nitrostat) Place under the tongue 1 Tablet every5 minutes as needed for Pain, Chest. Maximum 3 doses. 25 Tablet 5 Catheters by Ureteral route 7 times a day. Uses 14 Caude catheters, self cath's 7 times daily No current facility-administered medications for this visit. Current and discharge medications have been reconciled. Review of patient's allergies indicates: Allergen Reactions Cat Dander Dog Dander Dust Environmental [Pollen] Losartan Other (Please comment) Hyperkalemia Ragweed Morphine Nausea/vomiting OBJECTIVE: BP 118/62 | Pulse 52 | Temp 36.7 C (98 F) | Resp 14 | Ht 1.81 m (5' 11.25") | Wt 80.7 kg (178 lb) | SpO2 95% | BMI 24.65 kg/m | BSA 2.01 m REVIEW OF SYSTEMS: Review of Systems Constitutional: Positive for fatigue and unexpected weight change. Negative for appetite change, chills and fever. Respiratory: Negative for cough, shortness of breath and wheezing. Cardiovascular: Negative for chest pain, palpitations and leg swelling. Gastrointestinal: Positive for constipation. Negative for abdominal pain, blood in stool, diarrhea,nausea and vomiting. Genitourinary: Negative for hematuria. Patient straight caths 6-7 times a day due to neurogenic bladder Musculoskeletal: Negative for back pain and gait problem. Neurological: Negative for dizziness, syncope and headaches. Hematological: Does not bruise/bleed easily. Psychiatric/Behavioral: Negative for confusion, decreased concentration and sleep disturbance. PHYSICAL EXAM: BP 118/62 | Pulse 52 | Temp 36.7 C (98 F) | Resp 14 | Ht 1.81 m (5' 11.25") | Wt 80.7 kg (178 lb) | SpO2 95% | BMI 24.65 kg/m | BSA 2.01 m Physical Exam Vitals and nursing note [...] Behavior normal. Thought Content: Thought content normal. ASSESSMENT/ PLAN: S/P aortic valve replacement (Primary) - XR CHEST 2 VIEWS - EKG; Future; Expected date: 02/17/2023 - COMPREHENSIVE METABOLIC PANEL; Future; Expected date: 02/17/2023 - CBC WITH WBC DIFFERENTIAL; Future; Expected date: 02/17/2023 - EKG - COMPREHENSIVE METABOLIC PANEL - CBC WITH WBC DIFFERENTIAL Cardiology follow up scheduled for 02/27/2023 Start Cardiac PT in [address] recommended [address] CT Surgery Paroxysmal atrial fibrillation (HCC) - EKG; Future; Expected date: 02/17/2023 - EKG Amiodarone prescribed for 28 days post surgery Pulmonary nodule, left - CT CHEST WO CONTRAST; Future; Expected date: 08/18/2023 BPH without obstruction/lower urinary tract symptoms History of coronary artery bypass graft Gouty arthropathy Continue Allopurinol HTN, GOAL BELOW 140/90 Continue Carvedilol Dyslipidemia, goal LDL below 70 Continue Atorvastatin Neurogenic bladder Continue to straight cath Prediabetes Hypothyroidism due to acquired atrophy of thyroid Continue Levothyroxine Infrarenal abdominal 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 (HCC) Risk and functional assessment Constipation, unspecified constipation type Restart Miralax 17 gm daily Hypertensive kidney disease with stage 3b chronic kidney disease (HCC) - COMPREHENSIVE METABOLIC PANEL; Future; Expected date: 02/17/2023 - CBC WITH WBC DIFFERENTIAL; Future; Expected date: 02/17/2023 - NEPHROLOGY REFERRAL OP - COMPREHENSIVE METABOLIC PANEL - CBC WITH WBC DIFFERENTIAL Hospital discharge follow-up - DISCH MED RECON CUR MED LIS Follow-up: Return in about 1 week (around 02/24/2023), or if symptoms worsen or fail to improve. | Check-out note: Schedule with Nephrology Schedule CT chest in 6 months Yanick Canseco DO * Gia Cannon RPh - 02/17/2023 10:19 AM EDT Hasn't taken cholestyramine since discharge because hasn't had any BMs since Monday. Polyethylene glycol was stopped a few months ago. documented in this encounter Procedure Notes * Ken Hernandez DO - 02/17/2023 11:32 AM EDTAssociated Order(s): EKG REASON FOR STUDY: Atrial fibrillation post op CONCLUSIONS: Sinus bradycardia with 1st degree AV block Left ventricular hypertrophy with secondary repolarization abnormality Cannot rule out Septal infarct , age undetermined Abnormal ECG No previous ECGs available Ventricular Rate: 50 Atrial Rate: 50 HI Interval: 218 QRS Duration: 114 QT/QTc: 502/457 ms P-R-T [place]: 67 : 27 : 152 degrees documented in this encounter Nursing Notes * Argenis Sauer LPN - 02/17/2023 10:12 AM EDT Surgery was 02/07 discharged on 02/14 documented in this encounter Miscellaneous Notes * Result Encounter Note - Argenis Aparicio RN - 02/20/2023 9:33 AM EST See follow up phone encounter documented in this encounter Plan of Treatment Upcoming Encounters Date Type Department Care Team (Late st Contact Info) Description 02/22/2023 1:00 PM EST Office Visit Nephrology, [facility] [address] [facility] [place] [address] Ryan Issa MD [address] [place] [address] 02/23/2023 10:40 AM EST Office Visit Family Practice [address] [place] [address] [address] [place] [address] Yanick Canseco DO [address] [place] [address] 02/23/2023 3:40 PM EST Office Visit [address] [address] Laure Arias PA-C [address] [place] [address] [place] [address] 02/27/2023 11:00 AM EST Office Visit [facility], [facility] [address] [facility] [place] [address] Bess[facility] Gill [facility] [address] 03/15/2023 9:20 AM EST Office Visit Family Practice [address] [place] [address] [address] [place] [address] Yanick Canseco, [address] [place] [address] 03/17/2023 10:30 AM EST Office Visit Gastroenterology, [facility] [address] [facility] [place] [address] Patricia Mejia CRNP [address] [facility] [address] 06/30/2023 11:20 AM EDT Office Visit Nephrology, [facility] [address] [facility] [place] [address] Ryan Issa MD [address] [place] [address] 08/18/2023 3:00 PM EDT Office Visit Nephrology, [facility] [address] [place] [address] Ryan Issa MD [address] [place] [address] 08/22/2023 11:00 AM EDT Imaging Radiology [facility] [address] [facility] [place] [address] Pending Results Name Type Priority Associated Diagnoses Date /Time XR CHEST 2 VIEWS Medical Imaging Routine S/P aortic valve replacement 02/17/2023 11:43 AM EDT Scheduled Orders Name Type Priority Associated Diagnoses Orde r Schedule CT CHEST WO CONTRAST Medical Imaging Routine Pulmonary nodule, left Expected: 08/18/2023, Expires: 03/19/2024 Scheduled Referrals Name Type Priority Associated Diagnoses Orde r Schedule NEPHROLOGY REFERRAL OP Referral Within 10 days (routine) Hypertensive kidney disease with stage 3b chronic kidney disease (HCC) Ordered: 02/17/2023 Health Maintenance Due Date Last Done Comments Hastings's Esophagus Surveilance 03/17/2019 03/17/2016, 04/29/2014, 03/23/2012, Additional history exists COVID-19 Vaccine ( season) 2022 04/19/2022, 12/06/2021, 02/24/2021, Additional history exists GFR 08/18/2023 02/17/2023, 10/15, 06/13/2022, Additional history exists Albumin/Creatinine Ratio 09/07/2023 023, 09/21/2021, 09/10/2013, Additional history exists TSH 10/26/2023 10/25/2022, 08/16, 05/27/2022, Additional history exists CKD PHOS USE SMARTSET 37282 12/14/202311/16, 10/11/2021, 03/18/2021, Additional history exists HbA1c 12/14/2023 12/13/2022, 08/16, 03/09/2022, Additional history exists CKD HGB USE SMARTSET 35169 02/18/202402/17, 02/17/2023, 10/25/2022, Additional history exists Depression [...] Procedure Name Priority Date/Time Associated Diagnosis Comments DIFFERENTIAL, AUTOMATED Routine 02/17/2023 11:51 AM EDT S/P aortic valve replacement Hypertensive kidney disease with stage 3b chronic kidney disease (HCC) COMPREHENSIVE METABOLIC PANEL Routine 02/17/2023 11:51 AM EDT S/P aortic valve replacement Hypertensive kidney disease with stage 3b chronic kidney disease (HCC) CBC Routine 02/17/2023 11:51 AM EDT S/P aortic valve replacement Hypertensive kidney disease with stage 3b chronic kidney disease (HCC) CBC Routine 02/17/2023 11:51 AM EDT S/P aortic valve replacement Hypertensive kidney disease with stage 3b chronic kidney disease (HCC) HI ECG ROUTINE ECG W/LEAST 12 LDS I&R ONLY Routine 02/17/2023 11:32 AM EDT S/P aortic valve replacement Paroxysmal atrial fibrillation (HCC) documented in this encounter Results * (ABNORMAL) DIFFERENTIAL, AUTOMATED (02/17/2023 11:51 AM EDT) WBC 7.12 4.00 - 10.80 K/uL 02/17/2023 11:00 PM EDT [facility] Neutrophils % 71.3 40.0 - 75.0 % 02/17/2023 11:00 PM EDT [facility] Lymphocytes % 13.9(L) 18.0 - 42.0 % 02/17/2023 11:00 PM EDT [facility] Monocytes % 7.9 1.0 - 11.0 % 02/17/2023 11:00 PM EDT [facility] Eosinophils % 4.2 0.0 - 6.0 % 02/17/2023 11:00 PM EDT [facility] Basophils % 1.3 0.0 - 2.0 % 02/17/2023 11:00 PM EDT [facility] Immature Granulocytes % 1.4 0.0 - 2.0 % 02/17/2023 11:00 PM EDT [facility] Absolute Neutrophils 5.08 1.80 - 7.70 K/uL 02/17/2023 11:00 PM EDT [facility] Absolute Lymphocytes 0.99(L) 1.00 - 4.80 K/ul 02/17/2023 11:00 PM EDT [facility] Absolute Monocytes 0.56 0.00 - 1.10 K/uL 02/17/2023 11:00 PM EDT [facility] Absolute Eosinophils 0.30 0.00 - 0.70 K/uL 02/17/2023 11:00 PM EDT [facility] Absolute Basophils 0.09 0.00 - 0.20 K/uL 02/17/2023 11:00 PM EDT [facility] Absolute Immature Granulocytes 0.10 0.00 - 0.20 K/uL 02/17/2023 11:00 PM EDT [facility] Blood Venous blood specimen / Unknown Venipuncture / Unknown 02/17/2023 11:51 AM EDT 02/17/2023 11:51 AM EDT Yanick Canseco DO LAB BLOOD ORDERABLES [facility] [address] [place], [place] [id number] * (ABNORMAL) CBC (02/17/2023 11:51 AM EDT) Pathologist [facility] WBC 7.12 4.00 - 10.80 K/uL 02/17/2023 11:00 PM EDT [facility] RBC 3.41 4.50 - 5.25 M/uL 02/17/2023 11:00 PM EDT [facility] HGB 11.8(L) 14.0 - 16.8 g/dL 02/17/2023 11:00 PM EDT [facility] HCT 35.6(L) 40.0 - 48.4 % 02/17/2023 11:00 PM EDT [facility] MCV 104.4 82.0 - 99.5 fL 02/17/2023 11:00 PM EDT LAB[facility]ATORY [facility] MCH 34.6 27.0 - 34.0 pg 02/17/2023 11:00 PM EDT LAB[facility]ATORY [facility] MCHC 33.1 32.0 - 36.0 g/dL 02/17/2023 11:00 PM EDT LAB[facility]ATORY [facility] RDW 13.8 11.5 - 15.5 % 02/17/2023 11:00 PM EDT LAB[facility]ATORY [facility] PLT 297 140 - 400 K/uL 02/17/2023 11:00 PM EDT LAB[facility]ATORY [facility] MPV 12.5 6.6 - 11.1 fL 02/17/2023 11:00 PM EDT LAB[facility]ATORY [facility] nRBCs 0 <=0 /100 WBCs 02/17/2023 11:00 PM EDT LAB[facility]ORY [facility] Blood Venous blood specimen / Unknown Venipuncture / Unknown 02/17/2023 11:51 AM EDT 02/17/2023 11:51 AM EDT Yanick Canseco DO LAB BLOOD ORDERABLES LABORATORY [facility] [address] [place] [address] * (ABNORMAL) COMPREHENSIVE METABOLIC PANEL (02/17/2023 11:51 AM EDT) BUN 25(H) 6 - 20 mg/dL 02/18/2023 2:19 AM EDT LAB[facility]ATORY [facility] Creatinine 1.7(H) 0.6 - 1.2 mg/dL 02/18/2023 2:19 AM EDT LAB[facility]ORY [facility] Estimated Glomerular Filtration Rate 39(L) >=60 mL/min 02/18/2023 2:19 AM EDT [facility] Comment:eGFR is calculated b ased on the CKD-EPI 2020 equation Sodium 131(L) 135 - 146 mmol/L 02/18/2023 2:19 AM EDT [facility] Potassium 4.9 3.5 - 5.1 mmol/L 02/18/2023 2:19 AM EDT [facility] Chloride 96(L) 98 - 107 mmol/L 02/18/2023 2:19 AM EDT [facility] CO2 26 22 - 32 mmol/L 02/18/2023 2:19 AM EDT [facility] Anion Gap 9 7 - 15 mmol/L 02/18/2023 2:19 AM EDT [facility] Glucose 112 70 - 120 mg/dL 02/18/2023 2:19 AM EDT [facility] Albumin 3.8 3.8 - 5.0 g/dL 02/18/2023 2:19 AM EDT [facility] AST 29 10 - 50 U/L 02/18/2023 2:19 AM EDT [facility] Alkaline Phosphatase 63 35 - 130 U/L 02/18/2023 2:19 AM EDT [facility] Bilirubin, Total 0.8 <=1.2 mg/dL 02/18/2023 2:19 AM EDT [facility] Calcium 9.7 8.4 - 10.2 mg/dL 02/18/2023 2:19 AM EDT [facility] Protein 6.3 6.0 - 8.3 g/dL 02/18/2023 2:19 AM EDT LABORATORY C ALT 19 10 - 50 U/L 02/18/2023 2:19 AM EDT LABORATORY C Blood Venous blood specimen / Unknown Venipuncture / Unknown 02/17/2023 11:51 AM EDT 02/17/2023 11:51 AM EDT Yanick Canseco DO LAB BLOOD ORDERABLES LAB[facility]ATORY [facility] [address] [place] [address] * EKG (02/17/2023 11:32 AM EDT) 02/17/2023 11:3 2 AM EDT Narrative Procedure Note Ken Hernandez DO - 02/17/2023 11:32 AM EDT REASON FOR STUDY: Atrial fibrillation post op CONCLUSIONS: Sinus bradycardia with 1st degree AV block Left ventricular hypertrophy with secondary repolarization abnormality Cannot rule out Septal infarct , age undetermined Abnormal ECG No previous ECGs available Ventricular Rate: 50 Atrial Rate: 50 HI Interval: 218 QRS Duration: 114 QT/QTc: 502/457 ms P-R-T [place]: 67 : 27 : 152 degrees Yanick Canseco DO EKG Performing Organization Address City/State/[facility] Co de Phone Number [facility] documented in this encounter Visit Diagnoses Diagnosis S/P aortic valve replacement- Primary Heart valve replaced by other means Paroxysmal atrial fibrillation (HCC) Atrial fibrillation Pulmonary nodule, left Solitary pulmonary nodule BPH without obstruction/lower urinary tract symptoms Hypertrophy of prostate without urinary obstruction and other lower urinary tract symptoms (LUTS) 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 Gouty arthropathy Gouty arthropathy, unspecified HTN, GOAL BELOW 140/90 Unspecified essential hypertension Dyslipidemia, goal LDL below 70 Other and unspecified hyperlipidemia Neurogenic bladder Neurogenic bladder, NOS Prediabetes Other abnormal glucose Hypothyroidism due to acquired atrophy of thyroid Infrarenal abdominal 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 (HCC) Risk and functional assessment Screening for unspecified condition Constipation, unspecified constipation type Hypertensive kidney disease with stage 3b chronic kidney disease (HCC) Hospital discharge follow-up Other follow-up examination documented in this encounter Care Teams Program Coordinator Executive Education Relationship Specialty Start Date End Date Yanick Canseco DO [address] [place] [address] PCP - General Internal Medicine 04/07/22 documented as of this encounter
--- OUTSIDE RECORDS SUMMARY | 2023-03-04 16:28 | External Medical Summary ---
Author Name Unknown Address Unknown Organization K01:[facility] [address] [place] [id number] Laboratory Report Ordering Provider Test Date Status [place] 02/27/2023 12:10:40 Final Observation Date Value Abnormality Reference (Units ) Status T4, Free 02/27/2023 12:10:40 1.7 0.9-1.7 (n g/dL) Final Performing Location [facility] - [address] [place] [address]
--- OUTSIDE RECORDS SUMMARY | 2023-03-04 16:28 | External Medical Summary | Summary of Care ---
Author Name Unknown Organization [facility] Address [address] [place] [address] Phone [phone] Care Team Providers Care Crop And Soil Technician Name Role Phone Yanick Canseco DO Primary Care Provider [phone] Reason for Visit * Reason Comments Follow Up Encounter Details Date Type Department Care Team (Late st Contact Info) Description 02/23/2023 10:40 AM EST Office Visit Family Practice [address] [place] [address] [address] [place] [address] Yanick Canseco [address] [place] [address] S/P aortic valve replacement*; Pulmonary nodule, left; Paroxysmal atrial fibrillation (HCC); Atherosclerosis of [place] coronary artery of [place] heart without angina pectoris; Aortic root enlargement [...] Tablet by mouth every evening. 0 Active Hendrix-3 Fatty Acids (ULTRA OMEGA 3) 952 MG [...] MG Sublingual Tablet Sublingual (Nitrostat)Indicati ons:Atherosclerosis of [place] coronary artery of [place] heart without angina pectoris Place under the [...] bypass graft 10/15/19 08 Coronary atherosclerosis of [place] coronary celina ry 10/15/2007 BPH without obstruction/lower urinary tract symp toms 09/08/2005 Other allergic rhinitis 02/28/2001 Overview: ICD-10 update of inactive term Colbert's esophagus with high grade dysplasia Overview: Colbert's esophagus: egd by Dr Grant () f/u EGD 2001- neg per pt Cyst of kidney, acquired Overview: followed at [place] documented as of this encounter (statuses as [...] 3.4 by CTA 08/09/2012 [employer] Other*[id number] 03/08/2011 05/24/2016 Shortness of breath 02/22/2011 12/09/19 [...] hospital follow up. Patient was admitted to [facility] and had AVR, bilatral MAZE, and ISAÍAS [...] artery bypass graft Z95.1 Coronary atherosclerosis of [place] coronary artery I25.10 Gouty arthropathy M10.9 Disc [...] Take 1 Tablet by mouth every evening. Hendrix-3 Fatty Acids (ULTRA OMEGA 3) 952 MG [...] to OM, SVG to RCA DISC DIS [id number] 02/20/2009 Dyslipidemia, goal LDL below 100 03/30/2009 Per Lipid Taxonomy. Gouty arthropathy History of esophageal cancer Colbert's esophagus: egd by Dr Grant () f/u EGD 2001- neg per pt HTN, goal to be determined HYPERTROP PROSTATE W/O URIN OB 09/08/2005 Hypothyroidism Kidney disease, chronic, stage III (GFR 30-59 ml/min) ([facility]) 09/10/2013 MAL TIKI ESOPHAGUS NOS Colbert's [...] JACOB at CARDIAC LAB[facility] CABG, ARTERIAL, FOUR OR MORE 09/21/2007 four vessel CAGB CARPAL TUNNEL SURGERY Right 03/2017 COLONOSCOPY 04/2006 CYSTOSCOPY 10/09/2017 done [address] office [address] Chavez EGD, FLEXIBLE, DIAGNOSTIC 03/22/2012 UPPER GI ENDOSCOPY DIAGNOSTIC performed by Odalys Cárdenas MD at ENDOSCOPY [facility] EGD, FLEXIBLE, DIAGNOSTIC 03/23/2012 UPPER GI ENDOSCOPY DIAGNOSTIC performed by Odalys Cárdenas MD at ENDOSCOPY [facility] BX negative for Colbert's- repeat in 2 years EGD, FLEXIBLE, DIAGNOSTIC N/A 04/29/2014 Unremarkable post esophagectomy anatomy, without evidence of colbert's. repeat in 3 yrs/ESOPHAGOGASTRODUODENOSCOPY (EGD), FLEXIBLE, TRANSORAL, DIAGNOSTIC performed by Odalys Cárdenas MD at ENDOSCOPY [facility] EGD, FLEXIBLE, DIAGNOSTIC N/A 03/17/2016 normal bx/ESOPHAGOGASTRODUODENOSCOPY (EGD), FLEXIBLE, TRANSORAL, DIAGNOSTIC performed by Babatunde Carr MD at ENDOSCOPY [facility] EGD, FLEXIBLE, DIAGNOSTIC N/A 11/19/2019 small amount of retained bilious fluid of stomach, moderate edema and erythema of mucosa in stomach/retained food in stomach/biopsies normal/EGD/[facility] EGD, FLEXIBLE, W/BIOPSY 08/21/2007 No sx of Colbert's EGD, FLEXIBLE, W/BIOPSY 12/01/2009 done anastamosis and GE junction @ 20cm bx done--no eidence of [place] IMPLANT MESH W/ ABD HERNIA REPR/DEBRIDE 12/2006 IMPLANT NEUROELECTRODES, SACRAL N/A 09/21/2022 INFORMATION 2001 Other Ventral hernia repair R lower abdomen NONE 2002 colonoscopy at [facility]. OTHER 10/27/2005 excision of skin lesion [...] Finish Amiodarone in 3 weeks Atherosclerosis of [place] coronary artery of [place] heart without angina pectoris Continue carvedilol, and [...] 02/27/2023 11:00 AM EST Office Visit Cardiology, [facility] [address] [place] [address] Bessy Gill PA-C 132 [place] [address] 03/15/2023 9:20 AM EST Office Visit Family Practice [address] [place] [address] [address] [facility] [place] [address] Yanick Canseco, 293 [place] [address] 03/17/2023 10:30 AM EST Office Visit Gastroenterology, [facility] [address] [place] [address] Patricia Mejia CRNP 132 [facility] [place] [address] 06/30/2023 11:20 AM EDT Office Visit Nephrology, [facility] [address] [place] [address] Ryan Issa MD 200 [facility] [place] [address] 08/18/2023 3:00 PM EDT Office Visit Nephrology, [facility] [address] [place] [address] Ryan Issa MD [address] [facility] [place] [address] 08/22/2023 11:00 AM EDT Imaging Radiology [facility] [address] Health Maintenance Due Date Last Done Comments Colbert's Esophagus Surveilance 03/17/2019 03/17/2016, 04/29/2014, 03/23/2012, Additional history exists COVID-19 Vaccine ( season) 2022 04/19/2022, 12/06/2021, 02/24/2021, Additional history exists GFR 08/18/2023 02/17/2023, 10/15, 06/13/2022, Additional history exists Albumin/Creatinine Ratio 09/07/2023 023, 09/21/2021, 09/10/2013, Additional history exists TSH 10/26/2023 10/25/2022, 08/16, 05/27/2022, Additional history exists CKD PHOS USE SMARTSET 51504 12/14/202311/16, 10/11/2021, 03/18/2021, Additional history exists HbA1c 12/14/2023 12/13/2022, 08/16, 03/09/2022, Additional history exists CKD HGB USE SMARTSET 10243 02/18/202402/17, 02/17/2023, 10/25/2022, Additional history exists Depression [...] atrial fibrillation (HCC) Atrial fibrillation Atherosclerosis of [place] coronary artery of [place] heart without angina pectoris Aortic root enlargement [...] virus documented in this encounter Care Teams Crop And Soil Technician Relationship Specialty Start Date End Date Yanick Canseco DO [address] [place] [address] PCP - General Internal Medicine 04/07/22 documented as of this encounter
--- OUTSIDE RECORDS SUMMARY | 2023-03-04 16:29 | External Medical Summary | Summary of Care ---
Author Name Unknown Organization [facility] Address [address] [facility] [place] [address] Phone [phone] Care Team Providers Care Purchasing Supervisor Name Role Phone Yanick Canseco DO Primary Care Provider [phone] Reason for Visit * Reason Onset Date Comments Medication Refill 01/23/2023 Encounter Details Date Type Department Care Team Description 01/23/2023 Refill Gastroenterology, [facility] [address] [place] [address] William Quintero CRNP [address] [place] [address] Allergies Active Allergy Reactions Severity Noted Date Comments Cat Dander 09/25/2014 Dog Dander 09/25/2014 Dust 09/23/2015 Pollen 09/25/2014 Losartan Other (Please comment) 03/02/2021 Hyperkalemia Morphine Nausea/vomiting Low 12/13/2017 Ragweed 09/25/2014 documented as of this encounter (statuses as of 01/23/2023) Medications Medication Sig Dispensed Refills Start Date [...] Oral Tablet Take 1 Tablet by mouth daily. 0 09/27/2016 Active Multiple Vitamin (MULTI VITAMIN) TABS Take 1 Tablet by mouth daily. Ultra preventative X 0 02/09/2017 Active aspirin enteric coated 81 MG TBEC Take 1 Tablet by mouth every evening. 0 Active Henning-3 Fatty Acids (ULTRA OMEGA 3) 952 MG CAPSIndications:Dy slipidemia, goal LDL below 100 One tab twice daily 180 Cap 1 04/19/2018 Active Coenzyme Q10 100 MG Oral Tablet Take 1 Tablet by mouth once. 0 Active DHEA 50 MG Oral Tablet [...] D 25 MCG (1000 UT) Oral Tablet 2 Tablets daily. 0 09/07/2021 Active Cranberry 500 MG [...] cath's 7 times daily 0 10/24/2022 Active Polyethylene Glycol 3350 17 GM Oral Packet Take 1 Packet by mouth in the morning. 0 Active Omeprazole 40 MG Oral Capsule Delayed [...] as of this encounter (statuses as of 01/23/2023) Active Problems Problem Noted Date Aortic root enlargement 12/28/2022 Infrarenal abdominal aortic aneurysm (AA A) without rupture 05/27/2022 Persistent proteinuria 03/07/2021 Severe aortic insufficiency 03/02/2021 Adverse reaction to angiotensin 2 recept or antagonist 03/02/2021 Overview: Hyperkalemia Hypertensive kidney disease with stage 3 b chronic kidney disease 09/29/2020 Overview: Per CKD protocol Asymptomatic bilateral carotid artery st enosis 04/19/2019 Hypothyroidism due to acquired atrophy o f thyroid 04/19/2019 Prediabetes 05/28/2018 Overview: Per Prediabetes protocol #1 Paroxysmal atrial fibrillation 8 Neurogenic bladder 10/24/2017 Mild obstructive sleep apnea 04/03/2017 Overview: Untreated 02/2021 Sensorineural hearing loss (SNHL) of bot h ears 11/14/2016 Dyslipidemia, goal LDL below 70 03/30/20 Overview: Per Lipid Taxonomy. HTN, GOAL BELOW 140/90 03/05/2009 Overview: Modified per HTN protocol #16. Disc disorder of lumbar region 9 Gouty arthropathy 01/29/2009 Overview: ICD-9 Code Update. 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 10/15/2007 Coronary atherosclerosis of [place] coron martha artery 10/15/2007 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 09/08/2005 Other allergic rhinitis 02/28/2001 Overview: ICD-10 update of inactive term 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 Overview: Hastings's esophagus: egd by Dr Grant () f/u EGD 2001- per pt Cyst of kidney, acquired Overview: followed at [place] documented as of this encounter (statuses as of 01/23/2023) Resolved Problems Problem Noted Date Resolved Date Benign hypertension with stage 3b chronic kidney disease 09/29/2020 05/27/2022 Overview: Per CKD protocol Benign hypertension with stage 3a chronic kidney disease 08/25/2020 10/01/2020 Overview: Per CKD protocol Hypertensive kidney disease with stage 3a chronic kidney disease 08/25/2020 10/01/2020 Overview: Per CKD protocol Hypertensive kidney disease, stage III 9 08/27/2020 Overview: Per CKD protocol Benign hypertension with CKD (chronic kidney disease) stage III 04/19/2018 08/27/2020 Overview: Per CKD protocol Insomnia 09/27/2016 11/29/2018 H/O sleep apnea 09/27/2016 09/05/2017 Episodic cluster headache, not intractable 03/2212/08/2016 Carotid stenosis, non-symptomatic 03/22/2016 09/27/2019 Nonrheumatic aortic valve insufficiency 10/04/19 15 03/09/2022 Kidney disease, chronic, stage III (GFR 30-59 ml /min) 09/10/2013 04/19/2018 AAA (abdominal aortic aneurysm) 08/21/2012 06/06/2022 Overview: 3.4 by CTA 08/09/2012 [employer] Other*[id number] 201005/24/2016 Shortness of breath 02/22/2011 12/08/2016 Aortocoronary bypass status 02/22/201108/16 Paroxysmal A-fib 02/16/2010 12/08/2016 Abdominal aortic aneurysm 02/20/20092016 Dyslipidemia, goal LDL below 160 10/15/2007 03/30/2009 Overview: Per Lipid Taxonomy. ADVANCE DIRECTIVE INFORMATION 09/02/2004 Overview: Yes, Patient instructed to provide copy of advance directive for provider to review and to be scanned into Electronic Medical Record. Gouty arthropathy 08/12/2002 01/29/2009 Overview: ICD-9 Code Update. R podagra ICD-10 update of inactive term Hemorrhoids, external without complications 06/1602/28/2017 Internal hemorrhoids 07/12/2002 09/02/2004 Dyspnea and respiratory abnormality 02/28/2001 02/28/2017 Overview: ICD-10 update of inactive term Hypothyroidism 09/27/2019 HYPERTENSION NOS 03/05/2009 Overview: Modified per HTN protocol #16. documented as of this encounter (statuses as of 01/23/2023) Immunizations Name Administration Dates Next Due COVID-19 mRNA, LNP-s, No Pre serve, 2-Dose Series (Moderna) 06/10/2020,05/13/2020 COVID-19, LNP-s, No Preserve , Adiel-sucrose, Ages 12+ (Pfizer) 12/06/2021 COVID-19, mRNA, LNP-s, PF, B ooster, 100mcg/0.5mg (Moderna) 02/24/2021 Covid-19, Mrna, Lnp-s, Pf, B ivalent, 30 Mcg, IM, 12 yrs and above (youbeQ - [employer]) 04/19/2022 HEP A - Hepatitis A (Adult [...] = 0.6 oz pur e alcohol) rarely Alcohol Habits Answer Date Recorded How often do you have a drink containing alcohol ? 2-4 times a month 03/04/2020 How many drinks containing a lcohol do you have on a typical day when you are drinking? 1 or 2 03/04/2020 How often do you have six or more drinks on one occasion? Not asked 03/04/2020 Food Insecurity Answer Date Recorded Within the past 12 months, y ou worried that your food would run out before you got money to buy more. Never true 12/28/2022 Within the past 12 months, t he food you bought just didn't last and you didn't have money to get more. Never true 12/28/2022 Sex Assigned at Date Recorded Male 08/03/2022 9:25 AM E DT Job Start Date Occupation Industry Not on file Not on file Not on file documented as of this encounter Miscellaneous Notes * Telephone Encounter - KIKA Garcia - 01/23/2023 2:18 PM EDTSigned Prescriptions: Disp Refills Cholestyramine 4 GM Oral Packet (Questran) 90 Pac*1 Sig: Take 1 Packet by mouth in the morning. Mixed with liquid.. Authorizing Provider: PATRICIA MEJIA * Telephone Encounter - Tracy Rodríguez RN - 01/23/2023 12:00 PM EDT From [facility]" 11/28/22 "referred for diarrhea, stool studies negative - clinically feeling well with Questran PRN, will use Miralax PRN constipation - Can continue Questran once daily - Administer other oral medications 1 hour before or 4 hours after cholestyramine" Pended. * Telephone Encounter - Senia Vargas CPhT - 01/23/2023 9:26 AM EDT Patient requesting refills for cholestyramine 4gm oral packets. Upon chart review, medication is listed as discontinued, with discontinuation reason as "legacy prescription brought in as discontinued". Please advise if you wish to continue this therapy for the patient. Thank you, Senia Vargas CphT Folder Inspector III [facility]) (formerly Telepharmacy) 01/23/2023,9:26 AM documented in this encounter Plan of Treatment Upcoming Encounters Date Type Specialty Care Team Description 02/23/2023 Office Visit Dermatology Laure Arias PA-C [address] [place] [address] [place] [phone] 02/27/2023 Office Visit Cardiology Bessy Gill PA-C [address] [facility] [place] [address] 03/15/2023 Office Visit Family Medicine Yanick Canseco, DO [address] [facility] [place] [address] 03/17/2023 Office Visit Gastroenterology Patricia Mejia CRNP [address] [facility] [place] [address] 08/18/2023 Office Visit Nephrology Ryan Issa MD 200 [place] [address] Health Maintenance Due Date Last Done Comments Hastings's Esophagus Surveilance 03/17/2019 03/17/2016, 04/29/2014, 03/23/2012, Additional history exists COVID-19 Vaccine (2022- season) 2022 04/19/2022, 12/06/2021, 02/24/2021, Additional history exists GFR 04/27/2023 10/25/2022, 05/19, 06/06/2022, Additional history exists Albumin/Creatinine Ratio 09/07/2023 023, 09/21/2021, 09/10/2013, Additional history exists CKD HGB USE SMARTSET 16386 10/26/202310/25, 10/25/2022, 06/13/2022, Additional history exists TSH 10/26/2023 10/25/2022, 08/16, 05/27/2022, Additional history exists CKD PHOS USE SMARTSET 35733 12/14/202311/16, 10/11/2021, 03/18/2021, Additional history exists HbA1c 12/14/2023 12/13/2022, 08/16, 03/09/2022, Additional history exists Depression Screening 12/29/2023 12/28/2022 DTaP,Tdap,and Td Vaccines (2 - Td or [...] filedocumented as of this encounter Care Teams Purchasing Supervisor Relationship Specialty Start Date End Date Yanick Canseco, [address] [place] [address] PCP - General Internal Medicine 04/07/22 documented as of this encounter
--- OUTSIDE RECORDS SUMMARY | 2023-03-04 16:29 | External Medical Summary | Summary of Care ---
Author Name Unknown Organization [facility] Address [address] [place] [address] Phone [phone] Care Team Providers Care Freight Rate Specialist Name Role Phone Yanick Canseco DO Primary Care Provider [phone] Reason for Visit * Reason Onset Date Comments FYI 01/30/2023 [place] Encounter Details Date Type Department Care Team Description 01/30/2023 Telephone Family Practice [facility] [address] [place] [address] Yanick Canseco [address] [place] [address] FYI ([place]) Allergies Active Allergy Reactions Severity Noted Date Comments Cat Dander 09/25/2014 Dog Dander 09/25/2014 Dust 09/23/2015 Pollen 09/25/2014 Losartan Other (Please comment) 03/02/2021 Hyperkalemia Morphine Nausea/vomiting Low 12/13/2017 Ragweed 09/25/2014 documented as of this encounter (statuses as of 02/01/2023) Medications Medication Sig Dispensed Refills Start Date [...] Tablet by mouth every evening. 0 Active [place]-3 Fatty Acids (ULTRA OMEGA 3) 952 MG CAPSIndications:Dy slipidemia, goal LDL below 100 One tab twice daily 180 Cap 1 04/19/2018 Active Coenzyme Q10 100 MG Oral Tablet Take 1 Tablet by mouth once. 0 Active DHEA 50 MG Oral Tablet Take 50 mg by mouth daily. 0 Active Nitroglycerin 0.4 MG Sublingual Tablet Sublingual (Nitrostat)Indicat ions:Atheroscleros is of choct[place] coronary artery of choctaw heart without angina pectoris Place under the [...] as of this encounter (statuses as of 02/01/2023) Active Problems Problem Noted Date Aortic root [...] 11/14/2016 Dyslipidemia, goal LDL below 70 03/30/20 09 Overview: Per Lipid Taxonomy. HTN, GOAL BELOW 140/90 03/05/2009 Overview: Modified per HTN protocol #16. Disc disorder of lumbar region 9 Gouty arthropathy 01/29/2009 Overview: ICD-9 Code Update. 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 Overview: Hastings's esophagus: egd by Dr Grant () f/u EGD 2001- per pt Cyst of kidney, acquired Overview: followed at [place] documented as of this encounter (statuses as of 02/01/2023) Resolved Problems Problem Noted Date Resolved Date [...] 3.4 by CTA 08/09/2012 [employer] [facility] Other*[id number] 201005/24/2016 Shortness of breath 02/22/2011 12/08/2016 Aortocoronary [...] as of this encounter (statuses as of 02/01/2023) Immunizations Name Administration Dates Next Due COVID-19 mRNA, LNP-s, No Pre serve, 2-Dose Series (Moderna) 06/10/2020,05/13/2020 COVID-19, LNP-s, No Preserve , Adiel-sucrose, Ages 12+ (Pfizer) 12/06/2021 COVID-19, mRNA, LNP-s, PF, B ooster, 100mcg/0.5mg (Moderna) 02/24/2021 Covid-19, Mrna, Lnp-s, Pf, B ivalent, 30 Mcg, IM, 12 yrs and above ([facility]) 04/19/2022 HEP A - Hepatitis A (Adult [...] encounter Miscellaneous Notes * Telephone Encounter - Pinky French RN - 02/01/2023 9:20 AM EDT Follow-up Routine Attempted Phone Call First Attempt Call Outcome Left Voicemail/Message Plan To attempt another outreach * Telephone Encounter - EMILY Tena - 01/30/2023 10:06 AM EDT He is having open heart surgery on 02/07/2023 at [facility] Will be there on as he will need to complete a few tests first Will be needing rehab after he is released, Pinky he said you were talking about [place], pleasecall him in reference to that also And is questioning ambulance return from [place] Please contact patient documented in this encounter Plan of Treatment Upcoming Encounters Date Type Specialty Care Team Description 02/23/2023 Office Visit Dermatology Laure Arias PA-C [address] [place] [address] [place] [address] 02/27/2023 Office Visit Cardiology Bessy Gill PA-C [address] [place] [address] 03/15/2023 Office Visit Family Medicine Yanick Canseco, [address] [facility] [place] [address] 03/17/2023 Office Visit Gastroenterology Patricia Mejia CRNP [address] [place] [address] 08/18/2023 Office Visit Nephrology Ryan Issa MD [facility] [place] [address] Health Maintenance Due Date Last Done Comments Hastings's Esophagus Surveilance 03/17/2019 03/17/2016, 04/29/2014, 03/23/2012, Additional history exists COVID-19 Vaccine ( season) 2022 04/19/2022, 12/06/2021, 02/24/2021, Additional history exists GFR 04/27/2023 10/25/2022, 05/19, 06/06/2022, Additional history exists Albumin/Creatinine Ratio 09/07/2023 023, 09/21/2021, 09/10/2013, Additional history exists CKD HGB USE SMARTSET 82164 10/26/202310/25, 10/25/2022, 06/13/2022, Additional history exists TSH 10/26/2023 10/25/2022, 08/16, 05/27/2022, Additional history exists CKD PHOS USE SMARTSET 17669 12/14/202311/16, 10/11/2021, 03/18/2021, Additional history exists HbA1c [...] home patient encounter- Primary Other specified examination documented in this encounter Care Teams Freight Rate Specialist Relationship Specialty Start Date End Date Yanick Canseco, [address] [facility] [place] [address] PCP - General Internal Medicine 04/07/22 documented as of this encounter
--- OUTSIDE RECORDS SUMMARY | 2023-03-04 16:29 | External Medical Summary | Summary of Care ---
Author Name Unknown Organization [facility] Address [address] [facility] [address] Phone [phone] Care Team Providers Care Custom Feed Corn Operator Name Role Phone Yanick Canseco DO Primary Care Provider [phone] Encounter Details Date Type Department Care Team Description 10/25/2022 Telephone [facility] Operating [facility] [address] [place] [address] [facility] [place] [address] Allergies Active Allergy Reactions Severity Noted Date Comments Cat Dander 09/25/2014 Dog Dander 09/25/2014 Dust 09/23/2015 Pollen 09/25/2014 Losartan Other (Please comment) 03/02/2021 Hyperkalemia Morphine Nausea/vomiting Low 12/13/2017 Ragweed 09/25/2014 documented as of this encounter (statuses as of 01/24/2023) Medications Medication Sig Dispensed Refills Start Date End Date Status VITAMIN E 400 UNIT PO CAPS Take 1 Capsule by mouth. Wednesdays and Sundays 0 Active ACETAMINOPHEN 500 MG PO TABS Two pills by mouth every 6 hours as needed for fever or pain 0 2 Active GLUCOSAMINE CHONDROITIN COMPLX PO TABS Take 1 Tablet by mouth 2 times a day. 0 2 Active Ascorbic Acid 1000 MG Oral Tablet Take 1 Tablet by mouth daily. 0 7 Active Multiple Vitamin (MULTI VITAMIN) TABS Take 1 Tablet by mouth daily. Ultra preventative X 0 7 Active aspirin enteric coated 81 MG TBEC Take 1 Tablet by mouth every evening. 0 Active [place]-3 Fatty Acids (ULTRA OMEGA 3) 952 MG CAPSIndications: Dyslipidemia, goal LDL below 100 One tab twice daily 180 Cap 1 9 Active Coenzyme Q10 100 MG Oral Tablet Take 1 Tablet by mouth once. 0 Active DHEA 50 MG Oral Tablet Take 50 mg by mouth daily. 0 Active Nitroglycerin 0.4 MG Sublingual Tablet Sublingual (Nitrostat)Indic ations:Atheroscl erosis of quechan coronary artery of quechan heart without angina pectoris Place under the tongue 1 Tablet every 5 minutes as needed for Pain, Chest. Maximum 3 doses. 25 Tablet 5 2 Active Vitamin D 25 MCG (1000 UT) Oral Tablet 2 Tablets daily. 0 2 Active Cranberry 500 MG Oral Capsule Take 1 Capsule by mouth in the morning. 0 3 Active Allopurinol 100 MG Oral Tablet (Zyloprim)Indica tions:Gouty arthropathy TAKE ONE TABLET BY MOUTH IN THE MORNING AND TAKE ONE TABLET BEFORE BEDTIME 200 Tablet 3 3 10/10/19 24 Active Nitrofurantoin Macrocrystal 50 MG Oral Capsule (Macrodantin) TAKE ONE CAPSULE BY MOUTH EVERY DAY WITH MEAL/FOOD 90 Capsule 3 3 09/07/19 24 Active Atorvastatin Calcium 20 MG Oral Tablet (Lipitor) TAKE ONE TABLET BY MOUTH EVERY MORNING 100 Tablet 3 3 04/20/19 24 Active Catheters by Ureteral route 7 times a day. Uses 14 Caude catheters, self cath's 7 times daily 0 3 Active guaiFENesin ER 600 MG Oral Tablet Extended Release 12 Hour Take 1 Tablet by mouth 2 times a day as needed for Congestion. 0 3 12/14/19 23 Discontinued Carvedilol 12.5 MG Oral Tablet (Coreg)Indicatio ns:Atrial fibrillation with RVR (HCC) TAKE TWO TABLETS BY MOUTH EVERY DAY IN THE MORNING AND TAKE ONE TABLET BY MOUTH EVERY DAY IN THE EVENING 90 Tablet 5 3 12/13/19 23 Discontinued(Re fill) Cholestyramine 4 GM Oral Packet (Questran) DISSOLVE AND TAKE ONE PACKET BY MOUTH EVERY MORNING MIXED WITH LIQUID 90 Each 3 3 11/05/19 23 Discontinued Levothyroxine Sodium 150 MCG Oral Tablet (Levoxyl) TAKE ONE TABLET BY MOUTH EVERY MORNING AT LEAST 30 MINUTES PRIOR TO BREAKFAST OR OTHER MEDS 100 Tablet 1 3 12/08/19 23 Discontinued(Re fill) Omeprazole 40 MG Oral Capsule Delayed Release (PriLOSEC)Indica tions:History of esophageal cancer TAKE ONE CAPSULE BY MOUTH EVERY MORNING 1 HOUR BEFORE THE FIRST MEAL OF THE DAY 100 Capsule 3 3 11/16/19 23 Discontinued(Re fill) Apixaban 2.5 MG Oral Tablet (Eliquis) TAKE ONE TABLET BY MOUTH IN THE MORNING AND BEFORE BEDTIME 200 Tablet 3 3 11/16/19 23 Discontinued(Re fill) documented as of this encounter (statuses as of 01/24/2023) Active Problems Problem Noted Date Aortic root [...] artery bypass graft 10/15/2007 Coronary atherosclerosis of que[place] coron martha artery 10/15/2007 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 09/08/2005 Other allergic rhinitis 02/28/2001 Overview: ICD-10 update of inactive term 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 Overview: Hastings's esophagus: egd by Dr Grant () f/u EGD 2001- per pt Cyst of kidney, acquired Overview: followed at [place] documented as of this encounter (statuses as of 01/24/2023) Resolved Problems Problem Noted Date Resolved Date [...] 3.4 by CTA 08/09/2012 [facility] [facility] Other*[id number] 201005/24/2016 Shortness of breath 02/22/2011 12/08/2016 Aortocoronary [...] as of this encounter (statuses as of 01/24/2023) Immunizations Name Administration Dates Next Due COVID-19 [...] Seasonal Influenza, Quadriva lent Hd (Fluzone Hd) 03/02/2021 Seasonal Influenza, Quadriva lent, No Preserve, IM [...] encounter Miscellaneous Notes * Telephone Encounter - Tonya Robison RN - 10/25/2022 3:22 PM EDT Due to issues of severe aortic valve stenosis patient is not a candidate for procedure at [facility] notified documented in this encounter Plan of Treatment Upcoming Encounters Date Type Specialty Care Team Description 02/23/2023 Office Visit Dermatology Laure Arias PA-C [address] [place] [address] [place] [address] 02/27/2023 Office Visit Cardiology Bessy Gill PA-C [address] [place] [address] 03/15/2023 Office Visit Family Medicine Yanick Canseco, DO [place] [address] 03/17/2023 Office Visit Gastroenterology Patricia Mejia CRNP [address] [place] [address] 08/18/2023 Office Visit [facility]phrology [facility] [address] Health Maintenance Due Date Last Done Comments Hastings's Esophagus Surveilance 03/17/2019 03/17/2016, 04/29/2014, 03/23/2012, Additional history exists COVID-19 Vaccine ( season) 2022 04/19/2022, 12/06/2021, 02/24/2021, Additional history exists GFR 04/27/2023 10/25/2022, 05/19, 06/06/2022, Additional history exists Albumin/Creatinine Ratio 09/07/2023 023, 09/21/2021, 09/10/2013, Additional history exists CKD HGB USE SMARTSET 23014 10/26/202310/25, 10/25/2022, 06/13/2022, Additional history exists TSH 10/26/2023 10/25/2022, 08/16, 05/27/2022, Additional history exists CKD PHOS USE SMARTSET 53104 12/14/202311/16, 10/11/2021, 03/18/2021, Additional history exists HbA1c [...] filedocumented as of this encounter Care Teams Custom Feed Corn Operator Relationship Specialty Start Date End Date Yanick Canseco, DO [address] [place] [address] PCP - General Internal Medicine 04/07/22 documented as of this encounter
--- OUTSIDE RECORDS SUMMARY | 2023-03-04 16:29 | External Medical Summary | Summary of Care ---
Author Name Unknown Organization [facility] Address [address] [place] [address] Phone [phone] Care Team Providers Care Parcel Post Weigher Name Role Phone Yanick Canseco DO Primary Care Provider [phone] Reason for Visit * Reason Onset Date Comments Advice 01/16/2023 Encounter Details Date Type Department Care Team Description 01/16/2023 Telephone Family Practice [facility] [address] [place] [address] Yanick Canseco DO [address] [place] [address] Advice Allergies Active Allergy Reactions Severity Noted Date Comments Cat Dander 09/25/2014 Dog Dander 09/25/2014 Dust 09/23/2015 Pollen 09/25/2014 Losartan Other (Please comment) 03/02/2021 Hyperkalemia Morphine Nausea/vomiting Low 12/13/2017 Ragweed 09/25/2014 documented as of this encounter (statuses as of 01/16/2023) Medications Medication Sig Dispensed Refills Start Date [...] Tablet by mouth every evening. 0 Active [place]-3 Fatty Acids (ULTRA OMEGA 3) 952 MG CAPSIndications:Dy slipidemia, goal LDL below 100 One tab twice daily 180 Cap 1 04/19/2018 Active Coenzyme Q10 100 MG Oral Tablet Take 1 Tablet by mouth once. 0 Active DHEA 50 MG Oral Tablet Take 50 mg by mouth daily. 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 Overview: Hastings's esophagus: egd by Dr Grant () f/u EGD 2001- per pt Cyst of kidney, acquired Overview: followed at [place] documented as of this encounter (statuses as of 01/16/2023) Resolved Problems Problem Noted Date Resolved Date [...] 3.4 by CTA 08/09/2012 [employer] [facility] Other*[id number] 201005/24/2016 Shortness of breath 02/22/2011 12/08/2016 Aortocoronary [...] as of this encounter (statuses as of 01/16/2023) Immunizations Name Administration Dates Next Due COVID-19 mRNA, LNP-s, No Pre serve, 2-Dose Series (Moderna) 06/10/2020,05/13/2020 COVID-19, LNP-s, No Preserve , Adiel-sucrose, Ages 12+ (Pfizer) 12/06/2021 COVID-19, mRNA, LNP-s, PF, B ooster, 100mcg/0.5mg (Moderna) 02/24/2021 Covid-19, Mrna, Lnp-s, Pf, B ivalent, 30 Mcg, IM, 12 yrs and above ([employer]) 04/19/2022 HEP A - Hepatitis A (Adult [...] encounter Miscellaneous Notes * Telephone Encounter - Gia Kline RPh - 01/16/2023 3:57 PM EDT Patient calling in regarding catheters - he wants to get them from [facility] and wants to know if Pinky French got an answer yet. Gia Kline, Pharm D, BCACP Clinical Pharmacist [facility] 01/16/2023, 4:00 PM Ph. [phone] * Telephone Encounter - EMILY Perez - 01/16/2023 12:43 PM EDT Pt calling to talk to Gia. Please return his call at [phone] documented in this encounter Plan of Treatment Upcoming Encounters Date Type Specialty Care Team Description 02/23/2023 Office Visit Dermatology Laure Arias PA-C [address] [place] [address] [place] [address] 02/27/2023 Office Visit Cardiology Bessy Gill PA-C [address] [place] [address] 03/15/2023 Office Visit Family Medicine Yanick Canseco, [address] [place] [address] 03/17/2023 Office Visit Gastroenterology Patricia Mejia CRNP [address] [place] [address] Health Maintenance Due Date Last Done Comments GFR 04/27/2023 10/25/2022, 05/19, 06/06/2022, Additional history exists Albumin/Creatinine Ratio 09/07/2023 023, 09/21/2021, 09/10/2013, Additional history exists CKD HGB USE SMARTSET 27789 10/26/202310/25, 10/25/2022, 06/13/2022, Additional history exists TSH 10/26/2023 10/25/2022, 08/16, 05/27/2022, Additional history exists CKD PHOS USE SMARTSET 45292 12/14/202311/16, 10/11/2021, 03/18/2021, Additional history exists HbA1c 12/14/2023 12/13/2022, 08/16, 03/09/2022, Additional history exists Depression Screening 12/29/2023 12/28/2022 DTaP,Tdap,and Td Vaccines (2 - Td or Tdap) 09/13/2026 09/13/2016, 08/07/2007, 08/07/2007 Hepatitis B Completed 08/30/2016, 02/16, 02/11/2016 Pneumococcal Vaccine: 65+ Years Completed 12/11/2017, 12/22/2015, 12/06/2012, Additional history exists Zoster Vaccines Completed 04/04/2020, 01/15, 02/06/2012 COVID-19 Vaccine Completed 04/19/2022, , 02/24/2021, Additional history exists Influenza Vaccine (FLU shot) Completed , 02/03/2022, 03/02/2021, Additional history exists GARDASIL-HPV IMMUNIZATION SERIES Aged Out No longer eligible based on patient's age to complete this topic MENINGOCOCCAL (MENACTRA/MENVEO) Aged Out No longer eligible based on patient's age to complete this topic documented as of this encounter Medical Devices Not on filedocumented as of this encounter Care Teams Parcel Post Weigher Relationship Specialty Start Date End Date Yanick Canseco, [address] [place] [address] PCP - General Internal Medicine 04/07/22 documented as of this encounter
--- OUTSIDE RECORDS SUMMARY | 2023-03-04 16:29 | External Medical Summary | Summary of Care ---
Author Name Unknown Organization [facility] Address [address] [place] [address] Phone [phone] Care Team Providers Care Glass Laminating Operator Name Role Phone Yanick Canseco DO Primary Care Provider [phone] Reason for Referral * Evaluate & Treat - Unlimited Visits (Within 10 days (routine)) - Authorized Specialty Diagnoses / Procedures Referred By Jose rivero Referred To Contact Nephrology Diagnoses Hypertensive kidney disease with stage 3b chronic kidney disease (HCC) Yanick Canseco DO [address] [place] [address] Referral ID Status Reason Start Date Expiration Date Visits Requested Visits Authorized [id number] Authorized Specialty Services Required 02/17/2023 999 999 [...] CT CHEST WO CONTRAST Yanick Canseco DO [address] [place] [address] Referral ID Status Reason Start Date Expiration Date V isits Requested Visits Authorized [id number] Pending Review 08/18/2023 999 999 Reason for Visit * Reason Onset Date Comments Hospital Follow-Up [facility] Follow-Up 02/17/2023 Encounter Details Date Type Department Care Team (Natalie st Contact Info) Description 02/17/2023 10:00 AM EDT Office Visit Family Practice [address] [place] [address] [place] [phone] Yanick Canseco, 293 [place] [address] S/P aortic valve replacement*; Paroxysmal atrial fibrillation [...] as of this encounter (statuses as of 02/17/2023) Medications Medication Sig Dispensed Refills Start Date [...] Tablet by mouth every evening. 0 Active Moran-3 Fatty Acids (ULTRA OMEGA 3) 952 MG [...] Sublingual Tablet Sublingual (Nitrostat)Indica tions:Atheroscler osis of [place] coronary artery of [place] heart without angina pectoris Place under the [...] as of this encounter (statuses as of 02/17/2023) Active Problems Problem Noted Date Diagnosed Date [...] bypass graft 10/15/19 08 Coronary atherosclerosis of [place] coronary celina ry 10/15/2007 BPH without obstruction/lower urinary tract symp toms 09/08/2005 Other allergic rhinitis 02/28/2001 Overview: ICD-10 update of inactive term Hastings's esophagus with high grade dysplasia Overview: Hastings's esophagus: egd by Dr Grant () f/u EGD 2001- neg per pt Cyst of kidney, acquired Overview: followed at [place] documented as of this encounter (statuses as of 02/17/2023) Resolved Problems Problem Noted Date Diagnosed Date [...] 3.4 by CTA 08/09/2012 [employer] [facility] Other*[id number] 03/08/2011 05/24/2016 Shortness of breath 02/22/2011 12/09/19 [...] as of this encounter (statuses as of 02/17/2023) Immunizations Name Administration Dates Next Due COVID-19 mRNA, LNP-s, No Pre serve, 2-Dose Series (Moderna) 06/10/2020,05/13/2020 COVID-19, LNP-s, No Preserve , Adiel-sucrose, Ages 12+ (SP3H) 12/06/2021 COVID-19, mRNA, LNP-s, PF, B ooster, [...] 10:12 AM EDT Height 181 cm (5' 11.25") 02/17/2023 10:12 AM ED T Body Mass Index 24.65 02/17/2023 10:12 AM EDT documented in this encounter Patient Instructions * Patient Instructions* Argenis Sauer, EXTENSION AGENT - 02/17/2023 10:11 AM EDT Patient Instructions [...] 10 times. Repeat this throughout the day. [employer] Patient Education Copyright 2009 - 2010 [employer] except where otherwise noted. Preventing Falls: Moving [...] that mean climbing, even on a stepstool. [employer] Patient Education Copyright 2008 - 2010 [employer] except where otherwise noted. Treating Urinary Incontinence [...] Chief Complaint Patient presents with Hospital Follow-Up [facility] Follow-Up Recent Admission: Patient was recently admitted to [facility]. The date of discharge was 02/15/2023. Discharge [...] hospital follow up. Patient was admitted to [facility] and had AVR, bilatral MAZE, and ISAÍAS [...] artery bypass graft Z95.1 Coronary atherosclerosis of [place] coronary artery I25.10 Gouty arthropathy M10.9 Disc [...] Take 1 Tablet by mouth every evening. Moran-3 Fatty Acids (ULTRA OMEGA 3) 952 MG [...] available Ventricular Rate: 50 Atrial Rate: 50 OK Interval: 218 QRS Duration: 114 QT/QTc: 502/457 ms P-R-T [place]: 67 : 27 : 152 degrees documented in this encounter Nursing Notes * Argenis Sauer LPN - 02/17/2023 10:12 AM EDT Surgery was 02/07 discharged on 02/14 documented in this encounter Plan of Treatment Upcoming Encounters Date Type Department Care Team (Late st Contact Info) Description 02/23/2023 10:40 AM EST Office Visit [address] [place] [address] Yanick Canseco DO [address] [place] [address] 02/23/2023 3:40 PM EST Office Visit [address] [address] Laure Arias PA-C [address] [place] [address] [place] [address] 02/27/2023 11:00 AM EST Office Visit Cardiology, [facility] 132 [facility] [place] [address] Bessy Gill [facility]C [facility] [place] [address] 03/15/2023 9:20 AM EST Office Visit [address] [place] [address] Yanick Canseco DO [address] [place] [address] 03/17/2023 10:30 AM EST Office Visit [facility]astroenterology, [facility] [place] [address] Patricia Mejia CRNP [address] [place] [address] 06/30/2023 11:20 AM EDT Office Visit Nephrology, [facility] [address] [place] [address] Ryan Issa MD 200 [facility] [place] [address] 08/18/2023 3:00 PM EDT Office Visit Nephrology, [facility] [address] [place] [address] Ryan Issa MD [address] [place] [address] 08/22/2023 11:00 AM EDT Imaging Radiology [address] [facility] [place] [address] Pending Results Name Type Priority Associated Diagnoses Date /Time XR CHEST 2 VIEWS Medical Imaging Routine S/P aortic valve replacement 02/17/2023 11:43 AM EDT COMPREHENSIVE METABOLIC PANEL Lab Routine S/P aortic valve replacement Hypertensive kidney disease with stage 3b chronic kidney disease (HCC) 02/17/2023 11:51 AM EDT CBC WITH WBC DIFFERENTIAL Lab Routine S/P aortic valve replacement Hypertensive kidney disease with stage 3b chronic kidney disease (HCC) 02/17/2023 11:51 AM EDT CBC Lab Routine S/P aortic valve replacement Hypertensive kidney disease with stage 3b chronic kidney disease (HCC) 02/17/2023 11:51 AM EDT DIFFERENTIAL, AUTOMATED Lab Routine S/P aortic valve replacement Hypertensive kidney disease with stage 3b chronic kidney disease (HCC) 02/17/2023 11:51 AM EDT Scheduled Orders Name Type Priority Associated Diagnoses Orde r Schedule COMPREHENSIVE METABOLIC PANEL Lab Routine S/P aortic valve replacement Hypertensive kidney disease with stage 3b chronic kidney disease (HCC) Expected: 02/17/2023 (Approximate), Expires: 02/17/2024 CBC WITH WBC DIFFERENTIAL Lab Routine S/P aortic valve replacement Hypertensive kidney disease with stage 3b chronic kidney disease (HCC) Expected: 02/17/2023 (Approximate), Expires: 02/18/2024 CT CHEST WO CONTRAST Medical Imaging Routine [...] Additional history exists CKD HGB USE SMARTSET 12859 10/26/202310/25, 10/25/2022, 06/13/2022, Additional history exists TSH 10/26/2023 10/25/2022, 08/16, 05/27/2022, Additional history exists CKD PHOS USE SMARTSET 16696 12/14/202311/16, 10/11/2021, 03/18/2021, Additional history exists HbA1c 12/14/2023 12/13/2022, 08/16, 03/09/2022, Additional history exists Depression Screening 12/29/2023 02/17/2023 DTaP,Tdap,and Td Vaccines (2 - Td [...] Procedure Name Priority Date/Time Associated Diagnosis Comments OK ECG ROUTINE ECG W/LEAST 12 LDS I&R ONLY Routine 02/17/2023 11:32 AM EDT S/P aortic valve replacement Paroxysmal atrial fibrillation (HCC) documented in this encounter Results * EKG (02/17/2023 11:32 AM EDT) 02/17/2023 [...] available Ventricular Rate: 50 Atrial Rate: 50 OK Interval: 218 QRS Duration: 114 QT/QTc: 502/457 ms P-R-T [place]: 67 : 27 : 152 degrees Yanick Canseco DO EKG [facility] documented in this encounter Visit Diagnoses Diagnosis [...] examination documented in this encounter Care Teams Glass Laminating Operator Relationship Specialty Start Date End Date Yanick Canseco DO [address] [place] [address] PCP - General Internal Medicine 04/07/22 documented as of this encounter
--- OUTSIDE RECORDS SUMMARY | 2023-03-04 16:29 | External Medical Summary | Summary of Care ---
Author Name Unknown Organization [facility] Address [address] [place] [address] Phone [phone] Care Team Providers Care Risk Management Internship Name Role Phone Yanick Canseco DO Primary Care Provider [phone] Reason for Visit * Reason Onset Date Comments Advice 01/16/2023 Encounter Details Date Type Department Care Team Description 01/16/2023 Telephone Family Practice 65 [facility] [address] [place] [phone] Yanick Canseco DO [address] [place] [address] Advice Allergies Active Allergy Reactions Severity Noted [...] Tablet by mouth every evening. 0 Active [place]-3 Fatty Acids (ULTRA OMEGA 3) 952 MG CAPSIndications:Dy slipidemia, goal LDL below 100 One tab twice daily 180 Cap 1 04/19/2018 Active Coenzyme Q10 100 MG Oral Tablet Take 1 Tablet by mouth once. 0 Active DHEA 50 MG Oral Tablet Take 50 mg by mouth daily. 0 Active Nitroglycerin 0.4 MG Sublingual Tablet Sublingual (Nitrostat)Indicat ions:Atheroscleros is of [place] coronary artery of [place] heart without angina pectoris Place under the [...] artery bypass graft 10/15/2007 Coronary atherosclerosis of [place] coron martha artery 10/15/2007 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 09/08/2005 Other allergic rhinitis 02/28/2001 Overview: ICD-10 update of inactive term 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 Overview: Hastings's esophagus: egd by Dr Grant () f/u EGD 2001- per pt Cyst of kidney, acquired Overview: followed at [place] documented as of this encounter (statuses as [...] 3.4 by CTA 08/09/2012 [employer] [facility] Other*[id number] 201005/24/2016 Shortness of breath 02/22/2011 12/08/2016 Aortocoronary [...] 30 Mcg, IM, 12 yrs and above ([employer]SI Semi Conductors) 04/19/2022 HEP A - Hepatitis A (Adult [...] Telephone Encounter - Pinky French RN - 01/23/2023 12:02 PM EDT Spoke with [facility] [employer] [employer] is new to providing DME and they are not sure if they have a contract with [facility] yet or not. Their advice was to have pt's urologist submit a new order requesting a provider change so they can process it to see if [facility] [employer] is in network yet or now. CM placed t/c to Dr. No's office at [facility]. Left message with Audelia for the nurses to submit a new order through [facility]. Called and updated pt on the above. He is aware that [employer] may not be in network. * Telephone Encounter - Gia Kline RPh - 01/16/2023 3:57 PM EDT Patient calling in regarding catheters - he wants to get them from [facility] and wants to know if Pinky French got an answer yet. Gia Kline, Pharm D, BCACP Clinical Pharmacist [address] - [facility] 01/16/2023, 4:00 PM Ph. [phone] * Telephone Encounter - EMILY Perez - 01/16/2023 12:43 PM EDT Pt calling to talk to Gia. Please return his call at [phone] documented in this encounter Plan of Treatment Upcoming Encounters Date Type Specialty Care Team Description 02/23/2023 Office Visit Dermatology Laure Arias PA-C [address] [place] [address] [place] [address] 02/27/2023 Office Visit Cardiology Bessy Gill PA-C [address] [place] [address] 03/15/2023 Office Visit Family Medicine Yanick Canseco, DO 293 [place] [address] 03/17/2023 Office Visit Gastroenterology Patricia Mejia CRNP [address] [place] [address] 08/18/2023 Office Visit Nephrology Ryan Issa MD [address] [facility] [place] [address] Health Maintenance Due Date Last Done Comments Hastings's Esophagus Surveilance 03/17/2019 03/17/2016, 04/29/2014, 03/23/2012, Additional history exists COVID-19 Vaccine ( season) 2022 04/19/2022, 12/06/2021, 02/24/2021, Additional history exists GFR 04/27/2023 10/25/2022, 05/19, 06/06/2022, Additional history exists Albumin/Creatinine Ratio 09/07/2023 023, 09/21/2021, 09/10/2013, Additional history exists CKD HGB USE SMARTSET 14408 10/26/202310/25, 10/25/2022, 06/13/2022, Additional history exists TSH 10/26/2023 10/25/2022, 08/16, 05/27/2022, Additional history exists CKD PHOS USE SMARTSET 05090 12/14/202311/16, 10/11/2021, 03/18/2021, Additional history exists HbA1c [...] filedocumented as of this encounter Care Teams Risk Management Internship Relationship Specialty Start Date End Date Yanick Canseco, DO [address] [place] [address] PCP - General Internal Medicine 04/07/22 documented as of this encounter
--- OUTSIDE RECORDS SUMMARY | 2023-03-04 16:29 | External Medical Summary | Summary of Care ---
Author Name Unknown Organization [facility] Address [address] [place] [address] Phone [phone] Care Team Providers Care Hydraulic Jack Mechanic Name Role Phone Yanick Canseco DO Primary Care Provider [phone] Encounter Details Date Type Department Care Team (Late st Contact Info) Description 02/16/2023 Chef'S AssistantLabor Standards Director Practice 65 [facility] [address] [place] [address] Pinky Fong, RN [address] [place] [address] Medical home patient encounter*; Moderate to severe aortic insufficiency Allergies Active Allergy Reactions Criticality Noted Date Comments Cat Dander 09/25/2014 Dog Dander 09/25/2014 Dust 09/23/2015 Pollen 09/25/2014 Losartan Other (Please comment) 03/02/2021 Hyperkalemia Morphine Nausea/vomiting Low 12/13/2017 Ragweed 09/25/2014 documented as of this encounter (statuses as of 02/16/2023) Medications Medication Sig Dispensed Refills Start Date [...] Tablet by mouth every evening. 0 Active Dailey-3 Fatty Acids (ULTRA OMEGA 3) 952 MG CAPSIndications:Dy slipidemia, goal LDL below 100 One tab twice daily 180 Cap 1 04/19/2018 Active Coenzyme Q10 100 MG Oral Tablet Take 1 Tablet by mouth once. 0 Active DHEA 50 MG Oral Tablet Take 50 mg by mouth daily. 0 Active Nitroglycerin 0.4 MG Sublingual Tablet Sublingual (Nitrostat)Indicat ions:Atheroscleros is of [place] coronary artery of [place] heart without angina pectoris Place under the [...] as of this encounter (statuses as of 02/16/2023) Active Problems Problem Noted Date Diagnosed Date Aortic root enlargement 12/28/2022 Infrarenal abdominal [...] 10/15/19 08 Coronary atherosclerosis of [place] coronary celina ry 10/15/2007 BPH without obstruction/lower urinary tract symp toms 09/08/2005 Other allergic rhinitis 02/28/2001 Overview: ICD-10 update of inactive term Hastings's esophagus with high grade dysplasia Overview: Hastings's esophagus: egd by Dr Grant () f/u EGD 2001- neg per pt Cyst of kidney, acquired Overview: followed at [place] documented as of this encounter (statuses as of 02/16/2023) Resolved Problems Problem Noted Date Diagnosed Date [...] 3.4 by CTA 08/09/2012 [employer] Other*[id number] 03/08/2011 05/24/2016 Shortness of breath 02/22/2011 12/09/19 [...] as of this encounter (statuses as of 02/16/2023) Immunizations Name Administration Dates Next Due COVID-19 [...] Progress Notes * Pinky Fong RN - 02/16/2023 9:55 AM EDT Call for KRYSTAL comprehensive: Follow-up Post Discharge Attempted Phone Call First Attempt Call Outcome Left Voicemail/Message Plan To attempt another outreach documented in this encounter Plan of Treatment Upcoming Encounters Date Type Department Care Team (Late st Contact Info) Description 02/17/2023 10:00 AM EDT Office Visit Family Practice [address] [place] [address] [place] [address] Yanick Canseco, [address] [place] [address] 02/23/2023 3:40 PM EST Office [place] [address] [place] [address] Laure rAias, PATRICE [address] [place] [address] [place] [address] 02/27/2023 11:00 AM EST Office Visit Cardiology, [facility] [address] [facility] [place] [address] Bessy Gill PA-C [address] [facility] [place] [address] 03/15/2023 9:20 AM EST Office Visit Family Practice [address] [place] [address] 293 [place] [address] Yanick Canseco DO 293 [place] [address] 03/17/2023 10:30 AM EST Office Visit Gastroenterology, [facility] 132 [facility] [place] [address] Patricia [facility]jia CRNP [facility] [address] 08/18/2023 3:00 PM EDT Office Visit Nephrology, [facility] [address] [place] [address] Ryan Issa MD 200 [facility] [place] [address] Health Maintenance Due Date Last Done Comments Hastings's Esophagus Surveilance 03/17/2019 03/17/2016, 04/29/2014, 03/23/2012, Additional history exists COVID-19 Vaccine ( season) 2022 04/19/2022, 12/06/2021, 02/24/2021, Additional history exists GFR 04/27/2023 10/25/2022, 05/19, 06/06/2022, Additional history exists Albumin/Creatinine Ratio 09/07/2023 023, 09/21/2021, 09/10/2013, Additional history exists CKD HGB USE SMARTSET 76922 10/26/202310/25, 10/25/2022, 06/13/2022, Additional history exists TSH 10/26/2023 10/25/2022, 08/16, 05/27/2022, Additional history exists CKD PHOS USE SMARTSET 91711 12/14/202311/16, 10/11/2021, 03/18/2021, Additional history exists HbA1c [...] home patient encounter- Primary Other specified examination Moderate to severe aortic insufficiency documented in this encounter Care Teams Hydraulic Jack Mechanic Relationship Specialty Start Date End Date Yanick Canseco DO [address] [place] [address] PCP - General Internal Medicine 04/07/22 documented as of this encounter
--- OUTSIDE RECORDS SUMMARY | 2023-03-04 16:29 | External Medical Summary ---
Author Name Unknown Address Unknown Organization K01:[facility] - [address] [facility] [address] [place] [address] Laboratory Report Ordering Provider Test Date Status CULLEN CAPPS 02/17/2023 11:51:24 Final Observation Date Value Abnormality Reference (Units ) Status BUN 02/17/2023 11:51:24 25 Above high normal 6-20 (mg/dL) Final Creatinine 02/17/2023 11:51:24 1.7 Above high normal 0.6-1.2 (mg/dL) Final Glomerular filtration rate/1.73 sq M.predicted [Volume Rate/Area] in Serum, Plasma or Blood by Creatinine-based formula (CKD-EPI) 02/17/2023 11:51:24 39 Below low normal >=60 (mL/min) Final eGFR is calculated based on the CKD-EPI 2020 equation SODIUM 02/17/2023 11:51:24 131 Below low normal 135 -146 (mmol/L) Final Potassium 02/17/2023 11:51:24 4.9 3.5-5.1 (m mol/L) Final Cl 02/17/2023 11:51:24 96 Below low normal 98- 107 (mmol/L) Final CO2 02/17/2023 11:51:24 26 22-32 (mmo l/L) Final Anion gap 02/17/2023 11:51:24 9 7-15 (mmol /L) Final Glucose 02/17/2023 11:51:24 112 70-120 (mg /dL) Final Albumin 02/17/2023 11:51:24 3.8 3.8-5.0 (g /dL) Final AST (Aspartate aminotransferase) 02/17/2023 11:51:24 29 10-50 (U/L) Fin al Alk Phos 02/17/2023 11:51:24 63 35-130 (U/ L) Final Bilirubin, Total 02/17/2023 11:51:24 0.8 <=1 .2 (mg/dL) Final Calcium 02/17/2023 11:51:24 9.7 8.4-10.2 ( mg/dL) Final Protein 02/17/2023 11:51:24 6.3 6.0-8.3 (g /dL) Final ALT (Alanine aminotransferase) 02/17/2023 11:51:24 19 10-50 (U/L) Raphael ghosh Performing Location [facility] - [facility] [address] [facility] [address]
--- OUTSIDE RECORDS SUMMARY | 2023-03-04 16:29 | External Medical Summary | Summary of Care ---
Author Name Unknown Organization [facility] Address [address] [place] [address] Phone [phone] Care Team Providers Care Cafeteria Cashier Name Role Phone Yanick Canseco DO Primary Care Provider [phone] Reason for Visit * Reason Comments Chronic Kidney Disease (CKD) Encounter Details Date Type Department Care Team Description 01/18/2023 Office Visit [facility]Deniz [address] [place] [address] Ryan Issa MD [address] [facility] [place] [address] Stage 3b chronic kidney disease (HCC)*; Nephrotic range proteinuria Allergies Active Allergy Reactions Severity Noted Date Comments Cat Dander 09/25/2014 Dog Dander 09/25/2014 Dust 09/23/2015 Pollen 09/25/2014 Losartan Other (Please comment) 03/02/2021 Hyperkalemia Morphine Nausea/vomiting Low 12/13/2017 Ragweed 09/25/2014 documented as of this encounter (statuses as of 01/18/2023) Medications Medication Sig Dispensed Refills Start Date [...] Tablet by mouth every evening. 0 Active [place]-3 Fatty Acids (ULTRA OMEGA 3) 952 MG CAPSIndications:Dy slipidemia, goal LDL below 100 One tab twice daily 180 Cap 1 04/19/2018 Active Coenzyme Q10 100 MG Oral Tablet Take 1 Tablet by mouth once. 0 Active DHEA 50 MG Oral Tablet Take 50 mg by mouth daily. 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 Overview: Colbert's esophagus: egd by Dr Grant () f/u EGD 2001- per pt Cyst of kidney, acquired Overview: followed at [place] documented as of this encounter (statuses as of 01/18/2023) Resolved Problems Problem Noted Date Resolved Date [...] 3.4 by CTA 08/09/2012 [facility] Other*[id number] 201005/24/2016 Shortness of breath 02/22/2011 12/08/2016 Aortocoronary [...] as of this encounter (statuses as of 01/18/2023) Immunizations Name Administration Dates Next Due COVID-19 mRNA, LNP-s, No Pre serve, 2-Dose Series (Moderna) 06/10/2020,05/13/2020 COVID-19, LNP-s, No Preserve , Adiel-sucrose, Ages 12+ (Pfizer) 12/06/2021 COVID-19, mRNA, LNP-s, PF, B ooster, 100mcg/0.5mg (Moderna) 02/24/2021 Covid-19, Mrna, Lnp-s, Pf, B ivalent, 30 Mcg, IM, 12 yrs and above (Socializr) 04/19/2022 HEP A - Hepatitis A (Adult [...] Past Smokeless Tobacco: Never Tobacco Cessation:Counseling Given: Not Answered Comments:no passive smoke Alcohol Use Standard Drinks/Week [...] Sign Reading Time Taken Comments Blood Pressure 126/50 01/18/2023 1:20 PM EDT Pulse 80 01/18/2023 1:20 PM EDT Temperature 36.6 C (97.9 F) 01/18/2023 1:20 PM ED T Respiratory Rate 18 01/18/2023 1:20 PM EDT Oxygen Saturation 96% 01/18/2023 1:20 PM EDT Inhaled Oxygen Concentration - - Weight 82.1 kg (181 lb) 01/18/2023 1:20 PM EDT Height - - Body Mass Index 25.07 12/28/2022 2:51 PM EDT documented in this encounter Progress Notes * Ryan Issa MD - 01/18/2023 1:25 PM EDT Chief Complaint Patient presents with Chronic Kidney Disease (CKD) HPI: 83/M being seen for nephrotic range proteinuria. Has [...] with pneumonia May 2022 Since last visit - --- no new health issues. He is scheduled to see [facility] for possible aortic valve replacement---by traditional open heart surgery. Understandably he is quite scared/anxious about it. Denies any other symptoms. Denies nausea vomiting chest pain shortness of breath orthopnea PND lower extremity edema. Did not lose further weight PMH: Patient Active Problem List Diagnosis Code Other allergic rhinitis J30.89 Colbert's esophagus with high grade dysplasia K22.711 Cyst of kidney, acquired N28.1 BPH without obstruction/lower urinary tract symptoms N40.0 History of coronary artery bypass graft Z95.1 Coronary atherosclerosis of knik coronary artery I25.10 Gouty arthropathy M10.9 Disc [...] (HCC) I71.43 Aortic root enlargement (HCC) I77.89 Current Outpatient Medications Medication Sig Dispense Refill [...] Tablet Take 1 Tablet by mouth daily. Multiple Vitamin (MULTI VITAMIN) TABS Take 1 Tablet by mouth daily. Ultra preventative X aspirin enteric coated 81 MG TBEC Take 1 Tablet by mouth every evening. [place]-3 Fatty Acids (ULTRA OMEGA 3) 952 MG CAPS One tab twice daily 180 Cap 1 Coenzyme Q10 100 MG Oral Tablet Take 1 Tablet by mouth once. DHEA 50 MG Oral Tablet Take 50 mg by mouth daily. Nitroglycerin 0.4 MG Sublingual Tablet Sublingual (Nitrostat) Place under the tongue 1 Tablet every5 minutes as needed for Pain, Chest. Maximum 3 doses. 25 Tablet 5 Vitamin D 25 MCG (1000 UT) Oral Tablet 2 Tablets daily. Cranberry 500 MG Oral Capsule Take [...] Caude catheters, self cath's 7 times daily Polyethylene Glycol 3350 17 GM Oral Packet Take 1 Packet by mouth in the morning. Omeprazole 40 MG Oral Capsule Delayed Release [...] DAY IN THE EVENING 300 Tablet 1 No current facility-administered medications for this visit. Past Medical History: Diagnosis Date Abdominal aortic aneurysm (HCC) 02/20/2009 Aortic root enlargement (HCC) 12/28/2022 Aortocoronary bypass status 10/15/2007 Atrial fibrillation (HCC) 02/16/2010 Chronic coronary artery disease 09/22 CABGx4 GIFFORD to LAD, SVG to ramus, SVG to OM, SVG to RCA DISC DIS [id number] 02/20/2009 Dyslipidemia, goal LDL below 100 03/30/2009 Per Lipid Taxonomy. Gouty arthropathy History of esophageal cancer Colbert's esophagus: egd by Dr Grant () f/u EGD 2001- neg per pt HTN, goal to be determined HYPERTROP PROSTATE W/O URIN OB 09/08/2005 Hypothyroidism Kidney disease, chronic, stage III (GFR 30-59 ml/min) ([facility]) 09/10/2013 MAL TIKI ESOPHAGUS NOS Colbert's esophagus: egd by Dr Grant () f/u EGD 2002- neg per pt Moderate to severe aortic insufficiency 03/02/2021 Neurogenic bladder 14 Fr straight tip self cath 6-7 times per day Past Surgical History: Procedure Laterality Date BYPASS GRAFT ANGIOGRAPHY W/LEFT HEART CATH 03/08/2011 BYPASS GRAFT ANGIOGRAPHY W/LEFT HEART CATH performed by RACHEL JACOB at [facility] CABG, ARTERIAL, FOUR OR MORE 09/21/2007 four vessel CAGB CARPAL TUNNEL SURGERY Right 03/2017 COLONOSCOPY 04/2006 CYSTOSCOPY 10/09/2017 done [address] office [address] Chavez EGD, FLEXIBLE, DIAGNOSTIC 03/22/2012 UPPER GI ENDOSCOPY DIAGNOSTIC performed by Odalys Cárdenas MD at ENDOSCOPY [facility] EGD, FLEXIBLE, DIAGNOSTIC 03/23/2012 UPPER GI ENDOSCOPY DIAGNOSTIC performed by Odalys [facility] at [facility] BX negative for Colbert's- repeat in 2 years EGD, FLEXIBLE, DIAGNOSTIC N/A 04/29/2014 Unremarkable post esophagectomy anatomy, without evidence of colbert's. repeat in 3 yrs/ESOPHAGOGASTRODUODENOSCOPY (EGD), FLEXIBLE, TRANSORAL, DIAGNOSTIC performed by Odalys Cárdenas MD at ENDOSCOPY [facility] EGD, FLEXIBLE, DIAGNOSTIC N/A 03/17/2016 normal bx/ESOPHAGOGASTRODUODENOSCOPY (EGD), FLEXIBLE, TRANSORAL, DIAGNOSTIC performed by Babatunde aCrr MD at ENDOSCOPY [facility] EGD, FLEXIBLE, DIAGNOSTIC N/A 11/19/2019 small amount of retained bilious fluid of stomach, moderate edema and erythema of mucosa in stomach/retained food in stomach/biopsies normal/EGD/[facility] EGD, FLEXIBLE, W/BIOPSY 08/21/2007 No sx of Colbert's EGD, FLEXIBLE, W/BIOPSY 12/01/2009 done anastamosis and GE junction @ 20cm bx done--no eidence of Barretts IMPLANT MESH W/ ABD HERNIA REPR/DEBRIDE 12/2006 IMPLANT NEUROELECTRODES, SACRAL N/A 09/21/2022 INFORMATION 2001 Other Ventral hernia repair R lower abdomen NONE 2002 colonoscopy at [facility]. 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; Social Determinants of Health Financial Resource Strain: Not on file Food Insecurity: No Food Insecurity Worried About Running Out of Food in [...] Twelve systems reviewed and negative Objective: BP 126/50 (BP Site: Right Arm, BP Position: Sitting, BP Cuff Size: Regular) | Pulse 80 | Temp 36.6 C (97.9 F) | Resp 18 | Wt 82.1 kg (181 lb) | SpO2 96% | BMI 25.07 kg/m | BSA 2.03 m Physical Exam- General: alert, healthy, no [...] normal BP Readings from Last 5 Encounters: 01/18/23 126/50 12/28/22 108/60 12/13/22 140/72 11/28/22 128/61 11/08/22 118/62 Wt Readings from Last 5 Encounters: 01/18/23 82.1 kg (181 lb) 12/28/22 83 kg (183 lb) 12/13/22 84.9 kg (187 lb 1.6 oz) 11/28/22 83.2 kg (183 lb 8 oz) 11/08/22 84.9 kg (187 lb 3.2 oz) NEPH-FLOW Latest Ref Rng & Units [...] ratio <31 mg/g creat Recent Labs Units 10/25/22 1442 06/13/22 1229 06/06/22 1432 SODIUM - [facility] mmol/L 137 137 137 POTASSIUM - [facility] mmol/L 4.6 4.8 5.2* CHLORIDE - [facility] mmol/L 104 103 99 CO2 - [facility] mmol/L 24 23 26 BUN - [facility] mg/dL 21* 42* 24* CREATININE - [facility] mg/dL 1.3* 1.5* 1.6* ESTIMATED GLOMERULAR FILTRATION RATE - [facility] mL/min 57* 48* 44* Recent Labs Units 10/25/22 1442 06/13/22 1229 06/06/22 1432 HGB - [facility] g/dL 15.0 15.9 16.6 Recent Labs Units 12/13/22 1053 10/25/22 1442 06/13/22 1229 06/06/22 1432 05/27/22 1221 03/09/22 1034 10/11/21 1149 09/20/21 0757 03/18/21 1140 CALCIUM - [facility] mg/dL -- 9.7 9.6 9.9 < > 10.0 10.0 9.9 9.6 PHOSPHORUS - [facility] mg/dL 3.1 -- -- -- -- -- 3.3 -- 2.9 [...] recent creatinine and GFR was stable at 1.3 and 57. Continue same Given that he does straight catheterization 5-6 times per day he is always at risk of UTI. Unfortunately the bladder stimulator did not work He is scheduled to see [facility] for possible aortic valve replacement---by traditional openheart surgery. He had lot of questions about kidney function with the surgery. Unfortunately there is no way to predict this as kidney function can fluctuate quite a bit depending on intraoperative as well as postoperative complications if any. But post cardiac surgery ATN is not uncommon. Nephrotic range proteinuria Without nephrotic syndrome. He has had nephrotic range proteinuria but the most recent was 1.5 g. No edema and normal alb. Follow Up: Return in about 6 months (around 07/20/2023) for Clinic Visit. | For: Clinic Visit Ryan Issa MD documented in this encounter Nursing Notes * Candie López RN - 01/18/2023 1:19 PM EDT Follow up visit today. Heading to [facility] next week for cardiac evaluation and possible surgery. documented in this encounter Plan of Treatment Upcoming Encounters Date Type Specialty Care Team Description 02/23/2023 Office Visit Dermatology Laure Arias PA-C [address] [place] [address] [place] [address] 02/27/2023 Office Visit Cardiology Bessy Gill PA-C [address] [place] [address] 03/15/2023 Office Visit Family Medicine Yanick Canseco, [address] [place] [address] 03/17/2023 Office Visit Gastroenterology Patricia Mejia CRNP [address] [place] [address] 08/18/2023 Office Visit Nephrology Ryan Issa MD [address] [facility] [place] [address] Health Maintenance Due Date Last Done Comments COVID-19 Vaccine ( season) 2022 04/19/2022, 12/06/2021, 02/24/2021, Additional history exists GFR 04/27/2023 10/25/2022, 05/19, 06/06/2022, Additional history exists Albumin/Creatinine Ratio 09/07/2023 023, 09/21/2021, 09/10/2013, Additional history exists CKD HGB USE SMARTSET 40167 10/26/202310/25, 10/25/2022, 06/13/2022, Additional history exists TSH 10/26/2023 10/25/2022, 08/16, 05/27/2022, Additional history exists CKD PHOS USE SMARTSET 16715 12/14/202311/16, 10/11/2021, 03/18/2021, Additional history exists HbA1c [...] Proteinuria documented in this encounter Care Teams Cafeteria Cashier Relationship Specialty Start Date End Date Yanick Canseco, [address] [place] [address] PCP - General Internal Medicine 04/07/22 documented as of this encounter
--- OUTSIDE RECORDS SUMMARY | 2023-03-04 16:29 | External Medical Summary ---
Author Name Unknown Address Unknown Organization K01:[facility] [place] [address] [place] [address] Laboratory Report Ordering Provider Test Date Status CULLEN CAPPS 02/17/2023 11:51:24 Final Observation Date Value Abnormality Reference (Units ) Status SYNC LEUKOCYTES IN BLOOD BY AUTOMATED COUNT 02/17/2023 11:51:24 7.12 4.00-10.80 (K/uL) Final Segs 02/17/2023 11:51:24 71.3 40.0-75.0 (%) Final Lymphs % 02/17/2023 11:51:24 13.9 Below low normal 18.0-42.0 (%) Final Monos 02/17/2023 11:51:24 7.9 1.0-11.0 (%) Final Eosinophils 02/17/2023 11:51:24 4.2 0.0-6.0 (%) Final Basos 02/17/2023 11:51:24 1.3 0.0-2.0 (%) Final Immature Granulocyte, Percent 02/17/2023 11:51:24 1.4 0.0-2.0 (%) Final Absolute Segs 02/17/2023 11:51:24 5.08 1.80-7.70 (K/uL) Final Lymphs, absolute 02/17/2023 11:51:24 0.99 Below low normal 1.00-4.80 (K/ul) Final Monos, Abs 02/17/2023 11:51:24 0.56 0.00-1.10 (K/uL) Final Eos, Abs 02/17/2023 11:51:24 0.30 0.00-0.70 (K/uL) Final Basos, Abs 02/17/2023 11:51:24 0.09 0.00-0.20 (K/uL) Final Immature Granulocytes, Number 02/17/2023 11:51:24 0.10 0.00-0.20 (K/uL) Final Performing Location [facility] [place] [facility] [address] [facility] [address]
--- OUTSIDE RECORDS SUMMARY | 2023-03-04 16:29 | External Medical Summary | Summary of Care ---
Author Name Unknown Organization [facility] Address [address] [place] [address] Phone [phone] Care Team Providers Care Hydroelectric Plant Electrician Name Role Phone Yanick Canseco DO Primary Care Provider [phone] Reason for Visit * Reason Comments Dosage Adjustment In Person (Anticoag Cl inic) Medication Management Hospital Follow-Up Encounter Details Date Type Department Care Team (Late st Contact Info) Description 02/17/2023 10:40 AM EDT Pharmacy Family Practice [address] [phone] College, Pharmacist [address] [address] Encounter for long-term (current) use of medications* Allergies Active Allergy Reactions Criticality Noted Date [...] Tablet by mouth every evening. 0 Active [place]-3 Fatty Acids (ULTRA OMEGA 3) 952 MG [...] Sublingual Tablet Sublingual (Nitrostat)Indicat ions:Atheroscleros is of [place] coronary artery of new [...] Cyst of kidney, acquired Overview: followed at [place] documented as of this encounter (statuses as [...] 3.4 by CTA 08/09/2012 [facility] Other*[id number] 03/08/2011 05/24/2016 Shortness of breath 02/22/2011 12/09/19 [...] as of this encounter Progress Notes * Gia Cannon, [facility] - 02/17/2023 8:44 AM EDT Medication Therapy Disease Management [facility] - Medication Reconciliation Hubert Persaud is an 82 year old being seen for medication reconciliation. Prescription insurance information: JO [employer]cl[employer]on Do you have any other prescription coverage: No - above pace threshold Preferred pharmacy: [facility] ([facility]) [x] Problem list reviewed [x] Allergies reviewed and updated if needed [x] Drug interaction check completed [x] HEDIS list addressed Immunizations: Up to Date Medication Organization/Adherence: Has home care nurse or caregiver: no Patient uses a pill box? No - has own system to manage When you are at home, how often do you miss doses of medications? Less than once a week Reports specifically missing cholestyramine due to constipation since discharge How often do you experience side effects from your medications? Never Date of Hospital Admission/Primary Diagnosis: 02/07/23 - [facility] - aortic valve insufficiency/valve disease - Redo sternotomy, AVR (#29 Inspiris), biatrial MAZE, ISAÍAS ligation Date of Discharge from Hospital: 02/15/23 Medication changes during admission/on discharge: Added: amiodarone x 30 days, furosemide and potassium for 1 week Modified: none Discontinued: none Does the patient currently have all of their medications in their home?: Yes Does patient have any troubles obtaining medications?: No Labs/Vitals/Risk Scores: The ASCVD Risk score (Maria Luisa CASTELLANOS, et al., 2019) failed to calculate for the following reasons: The 2019 ASCVD risk score is only valid for ages 40 to 79 The patient has a prior NH or stroke diagnosis BP Readings from Last 3 Encounters: 01/18/23 126/50 12/28/22 108/60 12/13/22 140/72 Recent Labs Units 12/13/22 1053 09/05/22 1057 03/09/22 1034 HEMOGLOBIN A1C - ILAN % 6.2* 6.1* 6.1* Recent Labs Units 10/25/22 1442 06/13/22 1229 06/06/22 1432 ESTIMATED GLOMERULAR FILTRATION RATE - ILAN mL/min 57* 48* 44* Serum creatinine: 1.3 mg/dL (H) 10/25/22 1442 Estimated creatinine clearance: 47.8 mL/min (A) Assessment & Plan: Medication discrepancies identified: updated per discharge summary from [facility] Dose/frequency of medications appropriate for current renal function? yes Other medication problems identified: constipation - discussed with pcp to potentially restart PRN polyethylene glycol Patient education provided: none Referral pended for follow up management of: N/A Summary- Changes & Recommendations: Med rec completed with patient. Repeat med rec visit in 1 year Gia Angeles [facility] Clinical Pharmacist - Education Assistant Medication Therapy Management Clinic 02/17/2023, 8:45 AM documented in this encounter Plan of Treatment Upcoming Encounters Date Type Department Care Team (Late st Contact Info) Description 02/23/2023 10:40 AM EST Office Visit [address] [place] [address] Yanick Canseco DO [address] [place] [address] 02/23/2023 3:40 PM EST Office Visit Dermatology[address] [address] Laure Arias PA-C [address] [place] [address] [place] [address] 02/27/2023 11:00 AM EST Office Visit Cardiology, [facility] [address] [facility] [place] [address] Bessy Gill PA-C [address] [facility] [place] [address] 03/15/2023 9:20 AM EST Office Visit [address] [place] [address] [facility] [address] 03/17/2023 10:30 AM EST Office Visit Gastroenterology, [facility] [address] [facility] [place] [address] Patricia Mejia CRNP [address] [facility] [place] [address] 06/30/2023 11:20 AM EDT Office Visit Nephrology, [facility] [address] [place] [address] Ryan Issa MD [address] [place] [address] 08/18/2023 3:00 PM EDT Office Visit Nephrology, [facility] [address] [place] [address] Ryan Issa MD [address] [place] [address] 08/22/2023 11:00 AM EDT Imaging Radiology [facility] [address] [facility] [place] [address] Health Maintenance Due Date Last Done Comments Hastings's Esophagus Surveilance 03/17/2019 03/17/2016, 04/29/2014, 03/23/2012, Additional history exists COVID-19 Vaccine ( season) 2022 04/19/2022, 12/06/2021, 02/24/2021, Additional history exists GFR 04/27/2023 10/25/2022, 05/19, 06/06/2022, Additional history exists Albumin/Creatinine Ratio 09/07/2023 023, 09/21/2021, 09/10/2013, Additional history exists CKD HGB USE SMARTSET 69641 10/26/202310/25, 10/25/2022, 06/13/2022, Additional history exists TSH 10/26/2023 10/25/2022, 08/16, 05/27/2022, Additional history exists CKD PHOS USE SMARTSET 89185 12/14/202311/16, 10/11/2021, 03/18/2021, Additional history exists HbA1c [...] as of this encounter Visit Diagnoses Diagnosis Encounter for long-term (current) use of medications- Primary Encounter for long-term (current) use of other medications documented in this encounter Care Teams Hydroelectric Plant Electrician Relationship Specialty Start Date End Date Yanick Canseco DO [address] [address] PCP - General Internal Medicine 04/07/22 documented as of this encounter
--- OUTSIDE RECORDS SUMMARY | 2023-03-04 16:29 | External Medical Summary | Summary of Care ---
Author Name Unknown Organization [facility] Address [address] [place] [address] Phone [phone] Care Team Providers Care Volunteer Manager Name Role Phone Yanick Canseco DO Primary Care Provider [phone] Reason for Visit * Reason Onset Date Comments Medication Refill 01/20/2023 Encounter Details Date Type Department Care Team Description 01/20/2023 Refill Family Practice 65 [facility] [address] [place] [address] Yanick Canseco DO [address] [place] [address] Gouty arthropathy Allergies Active Allergy Reactions Severity Noted Date Comments Cat Dander 09/25/2014 Dog Dander 09/25/2014 Dust 09/23/2015 Pollen 09/25/2014 Losartan Other (Please comment) 03/02/2021 Hyperkalemia Morphine Nausea/vomiting Low 12/13/2017 Ragweed 09/25/2014 documented as of this encounter (statuses as of 01/20/2023) Medications Medication Sig Dispensed Refills Start Date [...] Tablet by mouth every evening. 0 Active [place]-3 Fatty Acids (ULTRA OMEGA 3) 952 MG CAPSIndications:Dy slipidemia, goal LDL below 100 One tab twice daily 180 Cap 1 04/19/2018 Active Coenzyme Q10 100 MG Oral Tablet Take 1 Tablet by mouth once. 0 Active DHEA 50 MG Oral Tablet Take 50 mg by mouth daily. 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 Overview: Hastings's esophagus: egd by Dr Grant () f/u EGD 2001- neg per pt Cyst of kidney, acquired Overview: followed at [place] documented as of this encounter (statuses as of 01/20/2023) Resolved Problems Problem Noted Date Resolved Date [...] 3.4 by CTA 08/09/2012 [employer] Other*[id number] 201005/24/2016 Shortness of breath 02/22/2011 12/08/2016 Aortocoronary [...] as of this encounter (statuses as of 01/20/2023) Immunizations Name Administration Dates Next Due COVID-19 mRNA, LNP-s, No Pre serve, 2-Dose Series (Moderna) 06/10/2020,05/13/2020 COVID-19, LNP-s, No Preserve , Adiel-sucrose, Ages 12+ (Pfizer) 12/06/2021 COVID-19, mRNA, LNP-s, PF, B ooster, 100mcg/0.5mg (Moderna) 02/24/2021 Covid-19, Mrna, Lnp-s, Pf, B ivalent, 30 Mcg, IM, 12 yrs and above ([employer]) 04/19/2022 HEP A - Hepatitis A (Adult [...] Telephone Encounter - Gia Kline RPh - 01/20/2023 10:06 AM EDT Refills already on hold at mail order. Will be sent out today. Gia Kline, Pharm D, BCACP Clinical Pharmacist [address] [facility] - Medication Therapy [facility] 01/20/2023, 10:06 AM Ph. [phone] * Telephone Encounter - EMILY Perez - 01/20/2023 9:51 AM EDT Pt calling in for refill Did you pend patient's preferred pharmacy and medication before forwarding?yes Pharmacy: [facility] Pending Prescriptions: Disp Refills Allopurinol 100 MG Oral Tablet (Zyloprim) 200 Ta*3 Last Visit: 12/28/2022 (in office), Visit date not found (telemedicine) Next Visit: 03/15/2023 If no future appointments scheduled, and last appointment is greater than a year ago, please schedule patient for a follow-up appointment Last date the medication was ordered: 10/10/2023 Is this request for a controlled substance?No Urine Drug Screen:No results found. However, due to the size of the patient record, not all encounters were searched. Please check Results Review for a complete set of results. Patient Phone Numbers Labs: Lab Results Component Value Date/Time CREAT 1.3 (H) 10/25/2022 02:42 PM CREAT 1.5 (H) 02/19/2020 11:37 AM CREAT 1.1 06/19/1996 09:00 AM POTASSIUM 4.6 10/25/2022 02:42 PM POTASSIUM 5.0 02/21/2020 12:20 PM POTASSIUM 4.4 06/19/1996 09:00 AM TSH 1.39 10/25/2022 02:42 PM TSH 2.03 04/21/2020 10:27 AM LDLCALC 26 09/05/2022 10:57 AM LDLCALC 37 09/27/2019 12:15 PM LDLCALC 131. (H) 06/19/1996 09:00 AM LDLDIRECT 58 09/20/2021 07:57 AM LDLDIRECT NOT APPLICABLE 09/27/2019 12:15 PM ALT 13 10/25/2022 02:42 PM ALT 14 12/02/2019 03:00 PM ALT 16 (L) 06/19/1996 09:00 AM HGBA1C 6.2 (H) 12/13/2022 10:53 AM HGBA1C 5.9 (H) 02/19/2020 11:37 AM documented in this encounter Plan of Treatment Upcoming Encounters Date Type Specialty Care Team Description 02/23/2023 Office Visit Dermatology Laure Arias PA-C [address] [place] [address] [place] [address] 02/27/2023 Office Visit Cardiology Bessy Gill PA-C [address] [place] [address] 03/15/2023 Office Visit Family Medicine Yanick Canseco, DO [address] [place] [address] 03/17/2023 Office Visit Gastroenterology Patricia Mejia CRNP [address] [place] [address] 08/18/2023 Office Visit Nephrology Ryan Issa MD 200 [facility] [place] [address] Health Maintenance Due Date Last Done Comments Hastings's Esophagus Surveilance 1940 COVID-19 Vaccine (2022- season) 2022 04/19/2022, 12/06/2021, 02/24/2021, Additional history exists GFR 04/27/2023 10/25/2022, 05/19, 06/06/2022, Additional history exists Albumin/Creatinine Ratio 09/07/2023 023, 09/21/2021, 09/10/2013, Additional history exists CKD HGB USE SMARTSET 86129 10/26/202310/25, 10/25/2022, 06/13/2022, Additional history exists TSH 10/26/2023 10/25/2022, 08/16, 05/27/2022, Additional history exists CKD PHOS USE SMARTSET 15490 12/14/202311/16, 10/11/2021, 03/18/2021, Additional history exists HbA1c [...] as of this encounter Visit Diagnoses Diagnosis Gouty arthropathy Gouty arthropathy, unspecified documented in this encounter Care Teams Volunteer Manager Relationship Specialty Start Date End Date Yanick Canseco, [address] [place] [address] PCP - General Internal Medicine 04/07/22 documented as of this encounter
--- OUTSIDE RECORDS SUMMARY | 2023-03-04 16:29 | External Medical Summary | Summary of Care ---
Author Name Unknown Organization [facility] Address [address] [place] [address] Phone [phone] Care Team Providers Care Commodity Industry Analyst Name Role Phone Yanick Canseco DO Primary Care Provider [phone] Reason for Visit * Reason Onset Date Comments Medication Refill 01/20/2023 Encounter Details Date Type Department Care Team Description 01/20/2023 Refill Family Practice 65 [facility] [address] [place] [address] Yanick Canseco DO [address] [place] [address] Gouty arthropathy Allergies Active Allergy Reactions Severity [...] Tablet by mouth every evening. 0 Active [place]-3 Fatty Acids (ULTRA OMEGA 3) 952 MG CAPSIndications:Dy slipidemia, goal LDL below 100 One tab twice daily 180 Cap 1 04/19/2018 Active Coenzyme Q10 100 MG Oral Tablet Take 1 Tablet by mouth once. 0 Active DHEA 50 MG Oral Tablet Take 50 mg by mouth daily. 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 [phone] * Telephone Encounter - EMILY Perez - 01/20/2023 9:51 AM EDT Pt calling in for refill Did you pend patient's preferred pharmacy and medication before forwarding?yes Pharmacy: [facility] Pending Prescriptions: Disp [...] 02/23/2023 Office Visit Dermatology Laure Arias PA-C [address] [place] [address] [place] [address] 02/27/2023 Office Visit Cardiology Bessy Gill PA-C [address] [place] [address] 03/15/2023 Office Visit Family Medicine Yanick Canseco, DO [address] [facility] [place] [address] 03/17/2023 Office Visit Gastroenterology Patricia Mejia CRNP [address] [place] [address] 08/18/2023 Office Visit Nephrology Ryan Issa MD 200 [place] [address] Health Maintenance Due Date Last Done Comments Hastings's Esophagus Surveilance 1940 COVID-19 Vaccine (2022- season) 2022 04/19/2022, 12/06/2021, 02/24/2021, Additional history exists GFR 04/27/2023 10/25/2022, 05/19, 06/06/2022, Additional history exists Albumin/Creatinine Ratio 09/07/2023 023, 09/21/2021, 09/10/2013, Additional history exists CKD HGB USE SMARTSET 51488 10/26/202310/25, 10/25/2022, 06/13/2022, Additional history exists TSH 10/26/2023 10/25/2022, 08/16, 05/27/2022, Additional history exists CKD PHOS USE SMARTSET 22680 12/14/202311/16, 10/11/2021, 03/18/2021, Additional history exists HbA1c [...] unspecified documented in this encounter Care Teams Commodity Industry Analyst Relationship Specialty Start Date End Date Yanick Canseco, [address] [place] [address] PCP - General Internal Medicine 04/07/22 documented as of this encounter
--- OUTSIDE RECORDS SUMMARY | 2023-03-04 16:29 | External Medical Summary ---
Author Name Unknown Address Unknown Organization K01:[facility] [address] [place] [address] Laboratory Report Ordering Provider Test Date Status CULLEN CAPPS 02/17/2023 11:51:24 Final Observation Date Value Abnormality Reference (Units ) Status WBC, Total 02/17/2023 11:51:24 7.12 4.00-10.80 (K/uL) Final RBC 02/17/2023 11:51:24 3.41 4.50-5.25 (M/uL) Final Hemoglobin 02/17/2023 11:51:24 11.8 Below low normal 14.0-16.8 (g/dL) Final HCT 02/17/2023 11:51:24 35.6 Below low normal 40.0-48.4 (%) Final MCV 02/17/2023 11:51:24 104.4 82.0-99.5 (fL) Final MCH 02/17/2023 11:51:24 34.6 27.0-34.0 (pg) Final MCHC 02/17/2023 11:51:24 33.1 32.0-36.0 (g/dL) Final RDW 02/17/2023 11:51:24 13.8 11.5-15.5 (%) Final Platelets 02/17/2023 11:51:24 297 140-400 (K/uL) Final MPV 02/17/2023 11:51:24 12.5 6.6-11.1 (fL) Final Nucleated erythrocytes/100 leukocytes [Ratio] in Blood by Automated count 02/17/2023 11:51:24 0 <=0 (/100 WBCs) Final Performing Location [facility] [address] [place] [address]
--- OUTSIDE RECORDS SUMMARY | 2023-03-04 16:30 | External Medical Summary | Summary of Care ---
Author Name Unknown Organization [facility] Address [address] [place] [address] Phone [phone] Care Team Providers Care Body Wirer Name Role Phone Yanick Canseco DO Primary Care Provider [phone] Reason for Visit * Reason Onset Date Comments Appointment 01/12/2023 Encounter Details Date Type Department Care Team Description 01/12/2023 Telephone Nephrology, [facility] [address] [place] [address] Services, Scheduling [address] [place] [address] Appointment Allergies Active Allergy Reactions Severity Noted Date Comments Cat Dander 09/25/2014 Dog Dander 09/25/2014 Dust 09/23/2015 Pollen 09/25/2014 Losartan Other (Please comment) 03/02/2021 Hyperkalemia Morphine Nausea/vomiting Low 12/13/2017 Ragweed 09/25/2014 documented as of this encounter (statuses as of 01/13/2023) Medications Medication Sig Dispensed Refills Start Date [...] Tablet by mouth every evening. 0 Active [place]-3 Fatty Acids (ULTRA OMEGA 3) 952 MG CAPSIndications:Dy slipidemia, goal LDL below 100 One tab twice daily 180 Cap 1 04/19/2018 Active Coenzyme Q10 100 MG Oral Tablet Take 1 Tablet by mouth once. 0 Active DHEA 50 MG Oral Tablet Take 50 mg by mouth daily. 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 Overview: Hastings's esophagus: egd by Dr Grant () f/u EGD 2002- neg per pt Cyst of kidney, acquired Overview: followed at [place] documented as of this encounter (statuses as of 01/13/2023) Resolved Problems Problem Noted Date Resolved Date [...] 3.4 by CTA 08/09/2012 [employer] [facility] Other*[id number] 201005/24/2016 Shortness of breath 02/22/2011 12/08/2016 Aortocoronary [...] as of this encounter (statuses as of 01/13/2023) Immunizations Name Administration Dates Next Due COVID-19 [...] encounter Miscellaneous Notes * Telephone Encounter - EMILY Shabazz - 01/12/2023 1:00 PM EDT Beny afternoon, Pt on the line requesting an appointment as soon as possible with Dr. Issa. Pt states there is apossibility that he is going to need open heart surgery and will need clearance. Dr. Issa has nothing available until April. Is is possible to put add him to someone else's schedule or squeeze him into Dr. Holt schedule? Please call pt to advise. Thank you! documented in this encounter Plan of Treatment Upcoming Encounters Date Type Specialty Care Team Description 02/23/2023 Office Visit Dermatology Laure Arias PA-C [address] [place] [address] [place] [address] 02/27/2023 Office Visit Cardiology Bessy Gill PA-C [address] [place] [address] 03/15/2023 Office Visit Family Medicine Yanick Canseco, DO [address] [place] [facility] [place] [address] 03/17/2023 Office Visit Gastroenterology Patricia Mejia CRNP [address] [place] [address] Health Maintenance Due Date Last Done Comments GFR 04/27/2023 10/25/2022, 05/19, 06/06/2022, Additional history exists Albumin/Creatinine Ratio 09/07/2023 05/23/2 023, 09/21/2021, 09/10/2013, Additional history exists CKD HGB USE SMARTSET 81940 10/26/202310/25, 10/25/2022, 06/13/2022, Additional history exists TSH 10/26/2023 10/25/2022, 08/16, 05/27/2022, Additional history exists CKD PHOS USE SMARTSET 59734 12/14/202311/16, 10/11/2021, 03/18/2021, Additional history exists HbA1c [...] filedocumented as of this encounter Care Teams Body Wirer Relationship Specialty Start Date End Date Yanick Canseco, DO [address] [facility] [place] [place] [address] PCP - General Internal Medicine 04/07/22 documented as of this encounter
--- OUTSIDE RECORDS SUMMARY | 2023-03-04 16:30 | External Medical Summary | Summary of Care ---
Author Name Unknown Organization [facility] Address [address] [facility] [place] [address] Phone [phone] Care Team Providers Care Application Design Engineer Name Role Phone Yanick Canseco DO Primary Care Provider [phone] Reason for Visit * Reason Onset Date Comments Advice 12/26/2022 Encounter Details Date Type Department Care Team Description 12/26/2022 Telephone Cardiology, [facility] [address] [place] [address] Erwin Weiner MD [address] [place] [id number] Advice Allergies Active Allergy Reactions Severity Noted Date Comments Cat Dander 09/25/2014 Dog Dander 09/25/2014 Dust 09/23/2015 Pollen 09/25/2014 Losartan Other (Please comment) 03/02/2021 Hyperkalemia Morphine Nausea/vomiting Low 12/13/2017 Ragweed 09/25/2014 documented as of this encounter (statuses as of 12/26/2022) Medications Medication Sig Dispensed Refills Start Date [...] Tablet by mouth every evening. 0 Active [place]-3 Fatty Acids (ULTRA OMEGA 3) 952 MG CAPSIndications:Dy slipidemia, goal LDL below 100 One tab twice daily 180 Cap 1 04/19/2018 Active Coenzyme Q10 100 MG Oral Tablet Take 1 Tablet by mouth once. 0 Active DHEA 50 MG Oral Tablet Take 50 mg by mouth daily. 0 Active Nitroglycerin 0.4 MG Sublingual Tablet Sublingual (Nitrostat)Indicat ions:Atheroscleros is of [place] coronary artery of [place] heart without angina pectoris Place under the [...] THE EVENING 300 Tablet 1 12/12/2022 Active Carvedilol 12.5 MG Oral Tablet (Coreg) Take 2 tablets in the morning and 1 tablet in the evening with food 42 Tablet 0 12/22/2022 Active documented as of this encounter (statuses as of 12/26/2022) Active Problems Problem Noted Date Infrarenal abdominal aortic aneurysm (AA A) without rupture 05/27/2022 Persistent proteinuria 03/07/2021 Moderate to severe aortic insufficiency 03/02/2021 Adverse reaction to angiotensin [...] artery bypass graft 10/15/2007 Coronary atherosclerosis of [place] coron martha artery 10/15/2007 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 09/08/2005 Other allergic rhinitis 02/28/2001 Overview: ICD-10 update of inactive term 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 Overview: Hastings's esophagus: egd by Dr Grant () f/u EGD 2001- neg per pt Cyst of kidney, acquired Overview: followed at [place] documented as of this encounter (statuses as of 12/26/2022) Resolved Problems Problem Noted Date Resolved Date [...] 3.4 by CTA 08/09/2012 [employer] Other*[id number] 201005/24/2016 Shortness of breath 02/22/2011 12/08/2016 Aortocoronary [...] as of this encounter (statuses as of 12/26/2022) Immunizations Name Administration Dates Next Due COVID-19 [...] (Prevnar) 12/11/2017,12/22/2015 Pneumococcal Polysaccharide PPV23 (Pneumovax) 12/06/2012,01/20/2006 Season Influenza, Quad, PF, Adjuvanted, 65+ Yrs, IM (FLUAD) 02/03/2022,01/28/2020 Seasonal Influenza Virus Vac cine, Unspecified Formulation 12/21/2018,01/29/2018,01/18/2017,01/15,02/24/2016,01/06/2010,03/23/2009 ,03/05/2008,02/13/2007,01/20/2006,03/17,03/20/2003,04/03/2002, 1,03/22/2000 Seasonal Influenza, PF, 6 mo ns & Above, IM , (Flulaval) 01/29/2018 Seasonal Influenza, Quadriva lent Hd (Fluzone Hd) [...] got money to buy more. Never true 12/13/2022 Within the past 12 months, t he food you bought just didn't last and you didn't have money to get more. Never true 12/13/2022 Sex Assigned at Date Recorded Male 08/03/2022 9:25 AM E DT Job Start Date Occupation Industry Not on file Not on file Not on file documented as of this encounter Miscellaneous Notes * Telephone Encounter - Erwin Weiner MD - 12/26/2022 2:11 PM EDT Please forward note as below to patient via my [facility] Regarding Hubert Persaud, 1940 As per clinic visit today December 26, 2022 Recommendations given underlying cardiac issues and valvular insufficiency avoid strenuous activityincluding all activities other than light work about home, cooking, grocery shopping. No heavy lifting, cleaning, yard work Please make accommodations to avoid strenuous activity Erwin Weiner MD documented in this encounter Plan of Treatment Upcoming Encounters Date Type Specialty Care Team Description 12/28/2022 Office Visit Family Medicine Yanick Canseco, [address] [place] [address] 02/23/2023 Office Visit Dermatology Laure Arias PA-C [address] [place] [address] [place] [address] 02/27/2023 Office Visit Cardiology Bessy Gill PA-C [address] [place] [address] 03/15/2023 Office Visit Family Medicine Yanick Canseco DO [address] [place] [address] 03/15/2023 Office Visit Nephrology Ryan Issa MD [address] [facility] [place] [address] 03/17/2023 Office Visit Gastroenterology Patricia Mejia CRNP [address] [place] [address] Health Maintenance Due Date Last Done Comments Influenza Vaccine (FLU shot) (#1) 2022 02/03/2022, 03/02/2021, 01/28/2020, Additional history exists GFR 04/27/2023 10/25/2022, 05/19, 06/06/2022, Additional history exists Albumin/Creatinine Ratio 09/07/2023 023, 09/21/2021, 09/10/2013, Additional history exists CKD HGB USE SMARTSET 13066 10/26/202310/25, 10/25/2022, 06/13/2022, Additional history exists TSH 10/26/2023 10/25/2022, 08/16, 05/27/2022, Additional history exists CKD PHOS USE SMARTSET 46184 12/14/202311/16, 10/11/2021, 03/18/2021, Additional history exists Depression Screening 12/14/2023 12/13/2022 HbA1c 12/14/2023 12/13/2022, 08/16, 03/09/2022, Additional history exists DTaP,Tdap,and Td Vaccines (2 - Td or Tdap) 09/13/2026 09/13/2016, 08/07/2007, 08/07/2007 Hepatitis B Completed 08/30/2016, 02/16, 02/11/2016 Pneumococcal Vaccine: 65+ Years Completed 12/11/2017, 12/22/2015, 12/06/2012, Additional history exists Zoster Vaccines Completed 04/04/2020, 01/15, 02/06/2012 COVID-19 Vaccine Completed 04/19/2022, , 02/24/2021, Additional history exists GARDASIL-HPV IMMUNIZATION SERIES Aged Out No longer eligible based on patient's age to complete this topic MENINGOCOCCAL (MENACTRA/MENVEO) Aged Out No longer eligible based on patient's age to complete this topic documented as of this encounter Medical Devices Not on filedocumented as of this encounter Care Teams Application Design Engineer Relationship Specialty Start Date End Date Yanick Canseco, [address] [place] [address] PCP - General Internal Medicine 04/07/22 documented as of this encounter
--- OUTSIDE RECORDS SUMMARY | 2023-03-04 16:30 | External Medical Summary | Summary of Care ---
Author Name Unknown Organization [facility] Address [address] [address] Phone [phone] Care Team Providers Care Product Safety Head Name Role Phone Génesis Canseco DO Primary Care Provider [phone] Reason for Visit * Reason Comments Follow Up Encounter Details Date Type Department Care Team Description 12/26/2022 Office Visit Cardiology, [facility] [address] [place] [address] Erwin Weiner MD [address] [place] [address] Severe aortic valve regurgitation* Allergies Active Allergy Reactions Severity Noted Date [...] Tablet by mouth every evening. 0 Active [place]-3 Fatty Acids (ULTRA OMEGA 3) 952 MG CAPSIndications:Dy slipidemia, goal LDL below 100 One tab twice daily 180 Cap 1 04/19/2018 Active Coenzyme Q10 100 MG Oral Tablet Take 1 Tablet by mouth once. 0 Active DHEA 50 MG Oral Tablet Take 50 mg by mouth daily. 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 Overview: Hastings's esophagus: egd by Dr Grant () f/u EGD 2001- neg per pt Cyst of kidney, acquired Overview: followed at [place] documented as of this encounter (statuses as [...] 3.4 by CTA 08/09/2012 [employer] [facility] Other*[id number] 201005/24/2016 Shortness of breath 02/22/2011 12/08/2016 Aortocoronary [...] as of this encounter Progress Notes * Erwin Weiner MD - 12/26/2022 1:49 PM EDT December 26, 2022 Cardiology Follow Up Referring Provider: PCP: [place] [address] [phone] Chief Complaint: Follow-up valvular disease, coronary disease, atrial fibrillation SUBJECTIVE: Hubert Persaud is an 82 year old year old male with past medical history 1. Atherosclerotic coronary disease status post coronary bypass grafting x4 in September of 2007, receiving a GIFFORD graft to the LAD, a saphenous vein graft to the right coronary artery, a saphenous vein graft to the ramus intermedius, and a saphenous vein graft to the obtuse marginal. 2. Prior positive stress testing in 2010 with subsequent repeat cardiac catheterization demonstrating occlusion of the vein graft to the obtuse marginal. 3. Severe aortic insufficiency slowly progressive since 2012 4. Moderate aortic root enlargement. 5. Hypertension. [...] amiodarone with subsequent conversion to sinus rhythm 10. Persistent Atrial fibrillation/flutter noted November 17, 2021 11. Chronic urinary retention on antibiotic suppressive therapy intermittent straight catheterization 12. Esophageal Barretts carcinoma status post esophagectomy 13. Atherosclerotic carotid disease, moderate bilateral Patient presents today on request Sought opinion from [facility] regarding aortic insufficiency. Underwent stress echocardiogram and cardiac MRI. Indications for valve replacement are present Awaiting surgical opinion regarding feasibility Notes fatigue with activities struggling with chores about home. Still able to cook and grocery shop but limited otherwise. No dizziness lightheadedness syncope or near syncope. No unexplained infections Patient Active Problem List Diagnosis Code Other allergic rhinitis J30.89 Hastings's esophagus with high grade dysplasia K22.711 Cyst of kidney, acquired N28.1 BPH without obstruction/lower urinary tract symptoms N40.0 History of coronary artery bypass graft Z95.1 Coronary atherosclerosis of [place] coronary artery I25.10 Gouty arthropathy M10.9 Disc [...] 3b chronic kidney disease (HCC) I12.9, N18.32 Moderate to severe aortic insufficiency I35.1 Adverse reaction to angiotensin 2 receptor antagonist T46.5X5A Persistent proteinuria R80.1 Infrarenal abdominal 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 ([facility]) I71.43 Review of patient's allergies indicates: Allergen Reactions [...] Take 1 Tablet by mouth every evening. Hamilton-3 Fatty Acids (ULTRA OMEGA 3) 952 MG [...] DAY IN THE EVENING 300 Tablet 1 Carvedilol 12.5 MG Oral Tablet (Coreg) Take 2 tablets in the morning and 1 tablet in the evening with food 42 Tablet 0 No current facility-administered medications for this visit. OBJECTIVE/PHYSICAL EXAMINATION: General: no acute distress and stated age Head: normocephalic, no masses, lesions, tenderness or abnormalities Eyes: conjunctiva are pink and non-injected, sclera clear Throat: clear Nares: without discharge Neck: supple, no adenopathy, no bruits, normal jugular venous pulse, no hepatojugular reflux, no carotid bruits, brisk carotid upstroke Chest: normal shape and normal respiratory effort Lungs: clear to auscultation and percussion Cardiac Exam: Irregular irregular grade 1/6 systolic murmur with a blowing grade 2 -3/6 diastolic murmur the lower left sternal border, there is no S3 gallop PMI is nondisplaced Abdomen: abdomen soft, non-tender, no abnormal masses, no hepatosplenomegaly, no abdominal bruit, no femoral bruit Musculoskeletal: no gait disturbance, no joint inflammation, no deforming arthritis Extremities: no edema, no cyanosis, pulses intact 3+/4 Neuro: grossly normal exam Data: ASSESSMENT: 82 year old year old male With 1. Stable ischemic heart disease with class 1 2 functional capacity no recent angina status post coronary bypass grafting 2. 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 Symptoms now of increasing exercise capacity in newly observed atrial fibrillation this year mild volume overload during acute illness recently 3 Aortic enlargement 4. Persistent atrial fibrillation/ flutter with good rate control and anticoagulation 5. CKD stage 3 with nephrotic range proteinuria PLAN: Discussed once again above findings in detail with patient Currently appears hemodynamically compensated no signs of volume overload, heart rate and blood pressure control Patient currently wrestling with decision making regarding potential aortic valve replacement both timing and location Awaiting surgical opinion patient increased surgical risk given prior past procedures and morbidities Is aware of the decline in overall exercise tolerance valve disease is precipitated Emotionally upset regarding plans as well as abilities to cope with current tasks. having difficulty with mentation as well as understanding patient's restrictions [facility] Recommended restricting activities to light level activities about home cooking groceries etc. no strenuous house cleaning or yd work Physical restriction recommendations [facility] be [facility] DISPOSITION: Return as scheduled, available to aid in planning Erwin Weiner MD [facility] Cardiology, [address] [place] [address] I spent a total of 30 minutes on the date of service in preparation, delivery, and documentation ofthe care provided to Hubert Persaud excluding any time spent in the performance of separately billed services. documented in this encounter Plan of Treatment Upcoming Encounters Date Type Specialty Care Team Description 12/28/2022 Office Visit Family Medicine Génesis Canseco, DO [address] [place] [address] 02/23/2023 Office Visit Dermatology Laure Arias PA-C [address] [place] [address] [place] [address] 02/27/2023 Office Visit Cardiology Bessy Gill PA-C [address] [place] [address] 03/15/2023 Office Visit Family Medicine Génesis Canseco, [address] [place] [address] 03/15/2023 [facility] [address] [facility] [address] 03/17/2023 Office Visit Gastroenterology Patricia Mejia CRNP [address] [place] [address] Health Maintenance Due Date Last Done Comments Influenza Vaccine (FLU shot) (#1) 2022 02/03/2022, 03/02/2021, 01/28/2020, Additional history exists GFR 04/27/2023 10/25/2022, 05/19, 06/06/2022, Additional history exists Albumin/Creatinine Ratio 09/07/2023 023, 09/21/2021, 09/10/2013, Additional history exists CKD HGB USE SMARTSET 94006 10/26/202310/25, 10/25/2022, 06/13/2022, Additional history exists TSH 10/26/2023 10/25/2022, 08/16, 05/27/2022, Additional history exists CKD PHOS USE SMARTSET 35925 12/14/202311/16, 10/11/2021, 03/18/2021, Additional history exists Depression [...] as of this encounter Visit Diagnoses Diagnosis Severe aortic valve regurgitation- Primary Aortic valve disorders documented in this encounter Care Teams Product Safety Head Relationship Specialty Start Date End Date Génesis Canseco, DO [address] [place] [address] PCP - General Internal Medicine 04/07/22 documented as of this encounter
--- OUTSIDE RECORDS SUMMARY | 2023-03-04 16:30 | External Medical Summary | Summary of Care ---
Author Name Unknown Organization [facility] Address [address] [facility] [place] [address] Phone [phone] Care Team Providers Care Supervisor Wheel Shop Name Role Phone Yanick Canseco DO Primary Care Provider [phone] Reason for Visit * Reason Onset Date Comments Advice 12/26/2022 Encounter Details Date Type Department Care Team Description 12/26/2022 Telephone Cardiology, [facility] [address] [place] [address] Erwin Weiner MD [address] [place] [id number] Advice Allergies Active Allergy Reactions Severity Noted Date Comments Cat Dander 09/25/2014 Dog Dander 09/25/2014 Dust 09/23/2015 Pollen 09/25/2014 Losartan Other (Please comment) 03/02/2021 Hyperkalemia Morphine Nausea/vomiting Low 12/13/2017 Ragweed 09/25/2014 documented as of this encounter (statuses as of 12/29/2022) Medications Medication Sig Dispensed Refills Start Date [...] Tablet by mouth every evening. 0 Active [place]-3 Fatty Acids (ULTRA OMEGA 3) 952 MG CAPSIndications:D yslipidemia, goal LDL below 100 One tab twice daily 180 Cap 1 04/19/2018 Active Coenzyme Q10 100 MG Oral Tablet Take 1 Tablet by mouth once. 0 Active DHEA 50 MG Oral Tablet Take 50 mg by mouth daily. 0 Active Nitroglycerin 0.4 MG Sublingual Tablet Sublingual (Nitrostat)Indica tions:Atheroscler osis of [place] coronary artery of [place] heart without angina pectoris Place under the [...] evening with food 42 Tablet 0 12/22/2022 3 Discontinu ed(Medicat ion List Clean Up) documented as of this encounter (statuses as of 12/29/2022) Active Problems Problem Noted Date Aortic root [...] artery bypass graft 10/15/2007 Coronary atherosclerosis of [place] coron martha artery 10/15/2007 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 09/08/2005 Other allergic rhinitis 02/28/2001 Overview: ICD-10 update of inactive term 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 Overview: Hastings's esophagus: egd by Dr Grant () f/u EGD 2001- per pt Cyst of kidney, acquired Overview: followed at [place] documented as of this encounter (statuses as of 12/29/2022) Resolved Problems Problem Noted Date Resolved Date [...] 3.4 by CTA 08/09/2012 [employer] [facility] [facility] Other*[id number] 201005/24/2016 Shortness of breath 02/22/2011 12/08/2016 Aortocoronary [...] as of this encounter (statuses as of 12/29/2022) Immunizations Name Administration Dates Next Due COVID-19 mRNA, LNP-s, No Pre serve, 2-Dose Series (Moderna) 06/10/2020,05/13/2020 COVID-19, LNP-s, No Preserve , Adiel-sucrose, Ages 12+ (Pfizer) 12/06/2021 COVID-19, mRNA, LNP-s, PF, B ooster, 100mcg/0.5mg (Moderna) 02/24/2021 Covid-19, Mrna, Lnp-s, Pf, B ivalent, 30 Mcg, IM, 12 yrs and above (Cloudtop) 04/19/2022 HEP A - Hepatitis A (Adult > 18 yrs) 02/13/2007, 07/18/2006 Hepatitis B, 20+ yrs 08/30/2016,03/15/2016,02/10 Pneumococcal Conjugate Vacc, 13 Valent (Prevnar) 12/11/2017,12/22/2015 Pneumococcal Polysaccharide PPV23 (Pneumovax) 12/06/2012,01/20/2006,04/02/2004 Season Influenza, Quad, PF, Adjuvanted, 65+ Yrs, IM (FLUAD) 02/03/2022,01/28/2020 Seasonal Influenza Virus Vac cine, Unspecified Formulation 12/21/2018,01/29/2018,01/18/2017,04/2016,02/24/2016,01/06/2010,03/23/20 09,03/05/2008,02/13/2007,01/20/2006,1 06/01/2004,03/20/2003,04/03/2002,04/05,03/22/2000 Seasonal Influenza, PF, 6 mo ns & [...] encounter Miscellaneous Notes * Telephone Encounter - Archana Herndon CMA - 12/29/2022 1:05 PM EDT Letter printed and placed in outgoing mail. * Telephone Encounter - EMILY Solorzano - 12/29/2022 12:22 PM EDT Good afternoon, Patient does not have access to my chart and he would like Dr. Weiner's message sent to him in the mail. Please advise. Thanks * Telephone Encounter - Erwin Weiner MD [...] 02/23/2023 Office Visit Dermatology Laure Arias PA-C [address] [place] [address] [place] [address] 02/27/2023 Office Visit Cardiology Bessy Gill PA-C [address] [place] [address] 03/15/2023 Office Visit Family Medicine Yanick Canseco, [address] [place] [address] 03/15/2023 Office Visit Nephrology Ryan Issa MD [address] [facility] [place] [address] 03/17/2023 Office Visit Gastroenterology Patricia Mejia CRNP [address] [place] [address] Health Maintenance Due Date Last Done Comments GFR 04/27/2023 10/25/2022, 05/19, 06/06/2022, Additional history exists Albumin/Creatinine Ratio 09/07/2023 023, 09/21/2021, 09/10/2013, Additional history exists CKD HGB USE SMARTSET 68478 10/26/202310/25, 10/25/2022, 06/13/2022, Additional history exists TSH 10/26/2023 10/25/2022, 08/16, 05/27/2022, Additional history exists CKD PHOS USE SMARTSET 51118 12/14/202311/16, 10/11/2021, 03/18/2021, Additional history exists HbA1c [...] filedocumented as of this encounter Care Teams Supervisor Wheel Shop Relationship Specialty Start Date End Date Yanick Canseco, DO [address] [place] [address] PCP - General Internal Medicine 04/07/22 documented as of this encounter
--- OUTSIDE RECORDS SUMMARY | 2023-03-04 16:30 | External Medical Summary | Summary of Care ---
Author Name Unknown Organization [facility] Address [address] [place] [address] Phone [phone] Care Team Providers Care Motor And Generator Brush Cutter Name Role Phone Yanick Canseco DO Primary Care Provider Reason for Visit * Reason Onset Date Comments Follow Up Medication Administration 12/28/2022 Flu an d/or Pneumo Inj Encounter Details Date Type Department Care Team Description 12/28/2022 Office Visit Family Practice 65 [facility] [address] [place] [address] Yanick Canseco DO [address] [place] [address] Severe aortic insufficiency*; Aortic root enlargement (HCC); Atherosclerosis of [place] coronary artery of [place] heart without angina pectoris; Paroxysmal atrial fibrillation (HCC); BPH without obstruction/lower urinary tract symptoms; HTN, GOAL BELOW 140/90; Neurogenic bladder; Hypothyroidism due to acquired atrophy of thyroid; Hypertensive kidney disease with stage 3b chronic kidney disease (HCC); Need for prophylactic vaccination and inoculation against influenza Allergies Active Allergy Reactions Severity Noted Date Comments Cat Dander 09/25/2014 Dog Dander 09/25/2014 Dust 09/23/2015 Pollen 09/25/2014 Losartan Other (Please comment) 03/02/2021 Hyperkalemia Morphine Nausea/vomiting Low 12/13/2017 Ragweed 09/25/2014 documented as of this encounter (statuses as of 12/30/2022) Medications Medication Sig Dispensed Refills Start Date [...] Tablet by mouth every evening. 0 Active [place]-3 Fatty Acids (ULTRA OMEGA 3) 952 MG CAPSIndications:D yslipidemia, goal LDL below 100 One tab twice daily 180 Cap 1 04/19/2018 Active Coenzyme Q10 100 MG Oral Tablet Take 1 Tablet by mouth once. 0 Active DHEA 50 MG Oral Tablet Take 50 mg by mouth daily. 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 Overview: Colbert's esophagus: egd by Dr Grant () f/u EGD 2001- neg per pt Cyst of kidney, acquired Overview: followed at [place] documented as of this encounter (statuses as of 12/30/2022) Resolved Problems Problem Noted Date Resolved Date [...] 3.4 by CTA 08/09/2012 [facility] Other*[id number] 201005/24/2016 Shortness of breath 02/22/2011 12/08/2016 Aortocoronary [...] as of this encounter (statuses as of 12/30/2022) Immunizations Name Administration Dates Next Due COVID-19 mRNA, LNP-s, No Pre serve, 2-Dose Series (Moderna) 06/10/2020,05/13/2020 COVID-19, LNP-s, No Preserve , Adiel-sucrose, Ages 12+ (Snipd) 12/06/2021 COVID-19, mRNA, LNP-s, PF, B ooster, [...] Sign Reading Time Taken Comments Blood Pressure 108/60 12/28/2022 2:51 PM EDT Pulse 84 12/28/2022 2:51 PM EDT Temperature 36.2 C (97.2 F) 12/28/2022 2:51 PM ED T Respiratory Rate 14 12/28/2022 2:51 PM EDT Oxygen Saturation 97% 12/28/2022 2:51 PM EDT Inhaled Oxygen Concentration - - Weight 83 kg (183 lb) 12/28/2022 2:51 PM EDT Height 181 cm (5' 11.25") 12/28/2022 2:51 PM EDT Body Mass Index 25.34 12/28/2022 2:51 PM EDT documented in this encounter Patient Instructions * Patient Instructions* Argenis Sauer LPN - 12/28/2022 2:47 PM EDT ~~PATIENT INSTRUCTIONS FOR FLU SHOT~~ Possible side effects of influenza vaccine, (flu shot), are usually mild and include: 1. Soreness or redness at injection site 2. Low grade fever 3. Body aches You may use Tylenol/Acetaminophen as needed for these symptoms. LET YOUR DOCTOR KNOW IMMEDIATELY IF YOU HAVE DIFFICULTY BREATHING OR SWALLOWING, EXPERIENCE ITCHINGOF FEET OR HANDS, HAVE SWELLING OF EYES, FACE OR INSIDE OF NOSE. documented in this encounter Progress Notes * Yanick Canseco, - 12/28/2022 3:26 PM EDT SUBJECTIVE: Hubert Persaud is a 82 year old male. Chief Complaint Patient presents with Follow Up Medication Administration Flu and/or Pneumo Inj HPI: Patient is an 82 year old male with a history of Atrial Fibrillation, CABG, Severe Aortic VAlve Insufficiency, Sleep Apnea, Hypothyroidism, left renal cyst, esophagectomy to treat Colbert's with highgrade dysplasia, bilateral ICA stenosis, AAA, lunbar disc disease, Gout, Insomnia, BPH, Osteomyelitis of the Lumbar Spine, and sacral neurotransmitter implant implant to treat neurogenic bladder thatis seen for follow up. The patient has shortness of breath when he takes out the trash which has been present for a few weeks. No chest pain is present. Patient was evaluated at [facility] in 12/2022. He has severe aortic regurgitation on Cardiac MRI. He is in the process of scheduling Cardioth oracic Surgery evaluation at [facility]. Appetite is good and weight is stable. He continuesto straight cath his bladder multiple times a day. Patient Active Problem List Diagnosis Code Other allergic rhinitis J30.89 Colbert's esophagus with high grade dysplasia K22.711 Cyst of kidney, acquired N28.1 BPH without obstruction/lower urinary tract symptoms N40.0 History of coronary artery bypass graft Z95.1 Coronary atherosclerosis of [place] coronary artery I25.10 Gouty arthropathy M10.9 [...] Take 1 Tablet by mouth every evening. [place]-3 Fatty Acids (ULTRA OMEGA 3) 952 MG [...] BY MOUTH EVERY MORNING 100 Tablet 3 Polyethylene Glycol 3350 17 GM Oral Packet [...] DAY IN THE EVENING 300 Tablet 1 Catheters by Ureteral route 7 times a day. Uses 14 Caude catheters, self cath's 7 times daily No current facility-administered medications for this visit. The patient's medication list was reviewed and updated as needed. Past Medical History: Diagnosis Date Abdominal aortic aneurysm ([facility]) 02/20/2009 Aortic root enlargement ([facility]) 12/28/2022 Aortocoronary bypass status 10/15/2007 Atrial fibrillation ([facility]) 02/16/2010 Chronic coronary artery disease 09/22 CABGx4 GIFFORD to LAD, SVG to ramus, SVG to OM, SVG to RCA DISC DIS [id number]-[id number] 02/20/2009 Dyslipidemia, goal LDL below 100 03/30/2009 Per Lipid Taxonomy. Gouty arthropathy History of esophageal cancer Colbert's esophagus: egd by Dr Grant () f/u EGD 2002- neg per pt HTN, goal to be determined HYPERTROP PROSTATE W/O URIN OB 09/08/2005 Hypothyroidism Kidney disease, chronic, stage III (GFR 30-59 ml/min) ([facility]) 09/10/2013 MAL TIKI ESOPHAGUS NOS Colbert's esophagus: egd by Dr Grant () f/u EGD 2001- neg per pt Moderate to severe aortic insufficiency 03/02/2021 Neurogenic bladder 14 Fr straight tip self cath 6-7 times per day Past Surgical History: Procedure Laterality Date BYPASS GRAFT ANGIOGRAPHY W/LEFT HEART CATH 03/08/2011 BYPASS GRAFT ANGIOGRAPHY W/LEFT HEART CATH performed by RACHEL JACOB at [facility] CABG, ARTERIAL, FOUR OR MORE 09/21/2007 four vessel CAGB CARPAL TUNNEL SURGERY Right 03/2017 COLONOSCOPY 04/2006 CYSTOSCOPY 10/09/2017 done [address] office [address] Scott [place], FLEXIBLE, DIAGNOSTIC 03/22/2012 UPPER GI ENDOSCOPY DIAGNOSTIC performed by Odalys Cárdenas MD at ENDOSCOPY [facility] EGD, FLEXIBLE, DIAGNOSTIC 03/23/2012 UPPER GI ENDOSCOPY DIAGNOSTIC performed by Odalys Cárdenas MD at ENDOSCOPY [facility] BX negative for Colbert's- repeat in 2 years EGD, FLEXIBLE, DIAGNOSTIC N/A 04/29/2014 Unremarkable post esophagectomy anatomy, without evidence of colbert's. repeat in 3 yrs/ESOPHAGOGASTRODUODENOSCOPY (EGD), FLEXIBLE, TRANSORAL, DIAGNOSTIC performed by Odalys Cárdenas MD at ENDOSCOPY [facility] EGD, FLEXIBLE, DIAGNOSTIC N/A 03/17/2016 normal bx/ESOPHAGOGASTRODUODENOSCOPY (EGD), FLEXIBLE, TRANSORAL, DIAGNOSTIC performed by Babatunde Carr MD at ENDOSCOPY [facility] EGD, FLEXIBLE, DIAGNOSTIC N/A 11/19/2019 small amount of retained bilious fluid of stomach, moderate edema and erythema of mucosa in stomach/retained food in stomach/biopsies normal/EGD/[facility] EGD, FLEXIBLE, W/BIOPSY 08/21/2007 No sx of Colbert's EGD, FLEXIBLE, W/BIOPSY 12/01/2009 done anastamosis and GE junction @ 20cm bx done--no eidence of Barretts IMPLANT MESH W/ ABD HERNIA REPR/DEBRIDE 12/2006 IMPLANT NEUROELECTRODES, SACRAL N/A 09/21/2022 INFORMATION 2001 Other Ventral hernia repair R lower abdomen NONE 2002 colonoscopy at [facility] [address]. OTHER 10/27/2005 excision of skin lesion from [...] Ragweed Morphine Nausea/vomiting Review of Systems Constitutional: Negative for appetite change, fatigue and unexpected weight change. Respiratory: Positive for shortness of breath. Negative for cough and wheezing. Cardiovascular: Negative for chest pain, palpitations and leg swelling. Gastrointestinal: Negative for abdominal pain, blood in stool, constipation, diarrhea, nausea and vomiting. Genitourinary: Negative for hematuria. Chronic neurogenic bladder Neurological: Negative for dizziness, syncope and headaches. Psychiatric/Behavioral: Negative for confusion, decreased concentration and sleep disturbance. OBJECTIVE: BP 108/60 | Pulse 84 | Temp 36.2 C (97.2 F) | Resp 14 | Ht 1.81 m (5' 11.25") | Wt 83 kg (183 lb) | SpO2 97% | BMI 25.34 kg/m | BSA 2.04 m Physical Exam Vitals and nursing note reviewed. Constitutional: General: He is not in acute distress. Appearance: Normal appearance. He is not toxic-appearing. HENT: Head: Normocephalic and atraumatic. Cardiovascular: Rate and Rhythm: Normal rate. Rhythm irregular. Heart sounds: No murmur heard. No gallop. Pulmonary: Effort: [...] Behavior normal. Thought Content: Thought content normal. PLAN AND ASSESSMENT: Severe aortic insufficiency (Primary) Patient is in process of scheduling with CT surgery Aortic root enlargement (HCC) Patient is in process of scheduling with CT surgery Atherosclerosis of [place] coronary artery of [place] heart without angina pectoris Continue Carvedilol, and ASA Paroxysmal atrial fibrillation (HCC) Continue Apixaban, and Carvedilol BPH without obstruction/lower urinary tract symptoms HTN, GOAL BELOW 140/90 Neurogenic bladder Continue to straight cath Hypothyroidism due to acquired atrophy of thyroid Continue Levothyroxine Hypertensive kidney disease with stage 3b chronic kidney disease (HCC) Need for prophylactic vaccination and inoculation against influenza - INFLUENZA VACC, QUAD, HIGH DOSE (FLUZONE HD) Follow Up: Return if symptoms worsen or fail to improve. Yanick Canseco DO 10:32 AM 12/30/2022 * Argenis Sauer LPN - 12/28/2022 2:45 PM EDT PRE - ADMINISTRATION DOCUMENTATION Are you experiencing any cold symptoms or fever? No Have you had Guillain-Oliver Syndrome (an illness that causes paralysis) within the last 6 weeks? No Have you had the flu shot in the past? YES Have you ever had a reaction to the flu shot? No Argenis Sauer LPN, 12/28/2022 2:47 PM Immunization Administration Documentation Time Out Procedure Performed: Yes Patient Identified (Ask Name/Date of ): Yes Does the patient have a fever greater than 101 degrees today? No Patient allergic to latex? No VFC Stock: No Immunization(s) verified: Yes, Immunization Name: Flu, VIS Sheet(s) given: Yes Verified Side and Site: Yes Verified Shot(s) with Parent(s)/Patient: Yes documented in this encounter Nursing Notes * Argenis Sauer LPN - 12/28/2022 2:51 PM EDT Here for follow up. documented in this encounter Plan of Treatment Upcoming Encounters Date Type Specialty Care Team Description 02/23/2023 Office Visit Dermatology Laure Arias PA-C [address] [place] [address] [place] [address] 02/27/2023 Office Visit Cardiology Bessy Gill PA-C [address] [place] [address] 03/15/2023 Office Visit Family Medicine Yanick Canseco, [address] [place] [address] 03/15/2023 Office Visit Nephrology Ryan Issa MD [address] [facility] [place] [address] 03/17/2023 Office Visit Gastroenterology Patricia Mejia CRNP [address] [place] [address] Health Maintenance Due Date Last Done Comments GFR 04/27/2023 10/25/2022, 05/19, 06/06/2022, Additional history exists Albumin/Creatinine Ratio 09/07/2023 023, 09/21/2021, 09/10/2013, Additional history exists CKD HGB USE SMARTSET 23520 10/26/202310/25, 10/25/2022, 06/13/2022, Additional history exists TSH 10/26/2023 10/25/2022, 08/16, 05/27/2022, Additional history exists CKD PHOS USE SMARTSET 58830 12/14/202311/16, 10/11/2021, 03/18/2021, Additional history exists HbA1c [...] this encounter Visit Diagnoses Diagnosis Severe aortic insufficiency- Primary Aortic valve disorders Aortic root enlargement (HCC) Other specified disorders of arteries and arterioles Atherosclerosis of [place] coronary artery of [place] heart without angina pectoris Paroxysmal atrial fibrillation (HCC) Atrial fibrillation BPH without obstruction/lower urinary tract symptoms Hypertrophy of prostate without urinary obstruction and other lower urinary tract symptoms (LUTS) HTN, GOAL BELOW 140/90 Unspecified essential hypertension Neurogenic bladder Neurogenic bladder, NOS Hypothyroidism due to acquired atrophy of thyroid Hypertensive kidney disease with stage 3b chronic kidney disease (HCC) Need for prophylactic vaccination and inoculation against influenza documented in this encounter Care Teams Motor And Generator Brush Cutter Relationship Specialty Start Date End Date Yanick Canseco, [address] [place] [address] PCP - General Internal Medicine 04/07/22 documented as of this encounter
--- OUTSIDE RECORDS SUMMARY | 2023-03-04 16:30 | External Medical Summary | Summary of Care ---
Author Name Unknown Organization [facility] Address [address] [place] [address] Phone [phone] Care Team Providers Care Fashion Editor Name Role Phone Yanick Canseco DO Primary Care Provider [phone] Encounter Details Date Type Department Care Team Description 12/26/2022 Canned Food Reconditioning InspectorStapler Coil Unit Practice 65 [facility], [address] [place] [address] Pinky French, RN Medical home patient encounter* Allergies Active Allergy Reactions Severity Noted Date [...] Tablet by mouth every evening. 0 Active [place]-3 Fatty Acids (ULTRA OMEGA 3) 952 MG CAPSIndications:Dy slipidemia, goal LDL below 100 One tab twice daily 180 Cap 1 04/19/2018 Active Coenzyme Q10 100 MG Oral Tablet Take 1 Tablet by mouth once. 0 Active DHEA 50 MG Oral Tablet Take 50 mg by mouth daily. 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 and with cigarette making machine catcher to discuss open heart surgeryfor aortic insufficiency. Per cigarette making machine catcher and [facility] pt is a candidate for valve replacement. ASSESSMENT: Pt had a number of questions about what after care would look like. He [facility] to know [facility] if he could recover up here close to home (preferably [facility] or [facility]). He is worried about his having her own health issuesand does not want to be to far away while he is recovering. CM explained insurance requirements forSNF vs inpatient rehab placement and the different levels of care (inpt rehab vs SNF vs assisted living). Pt and his are on the waiting list for an assisted living unit at [facility] and have been since October of this year. CM explained that it would not be possible to secure a SNF bed head ;of time as insurance would need up to date information regarding pt's status before determining whether or not a stay at [facility] or [facility] would be covered. CM explained that it would be possible though to have surgery at [facility] and then return closer to home to recover pending bed availability at that time. Pt also had questions regarding possible recovery time. Pt has a planned trip to his house in [facility] and wanted to know if he should cancel this or not. CM advised that it could be 6-8 weeks or longer or he could recover sooner, it depends on numerous factors, but that he should discuss this with the surgeon to get an idea of the time frame before making any solid travel plans. RECOMMENDATION: Pt has appointment with his PCP on 12/28/22 and he is going to discuss the above with him. CM advised that while CM could not promise him a guaranteed bed at an local snf, that he should provide the inpatient CM with this CM's contact information after surgery to help facilitate d/c planning if needed. CM advised pt to have a few "options" in mind as to which SNF he would like to go to as it will all be based on insurance coverage and bed availability at the time of d/c.Pt verbalized understanding all of this. Pinky French photograph developer [address] [place] [address] [address] [facility] [address] documented in this encounter Plan of Treatment Upcoming Encounters Date Type Specialty Care Team Description 12/28/2022 Office Visit Family Medicine Yanick Canseco DO [address] [place] [address] 02/23/2023 Office Visit Dermatology Laure Arias PA-C [address] [place] [address] [place] [address] 02/27/2023 Office Visit Cardiology Bessy Gill PA-C [address] [facility] [place] [address] 03/15/2023 Office Visit Family Medicine Yanick Canseco DO [address] [place] [address] 03/15/2023 Office Visit Nephrology Ryan Issa MD [address] [place] [address] 03/17/2023 Office Visit Gastroenterology Patricia Mejia CRNP [address] [place] [address] Health Maintenance Due Date Last Done Comments Influenza Vaccine (FLU shot) (#1) 2022 02/03/2022, 03/02/2021, 01/28/2020, Additional history exists GFR 04/27/2023 10/25/2022, 05/19, 06/06/2022, Additional history exists Albumin/Creatinine Ratio 09/07/2023 023, 09/21/2021, 09/10/2013, Additional history exists CKD HGB USE SMARTSET 83607 10/26/202310/25, 10/25/2022, 06/13/2022, Additional history exists TSH 10/26/2023 10/25/2022, 08/16, 05/27/2022, Additional history exists CKD PHOS USE SMARTSET 57177 12/14/202311/16, 10/11/2021, 03/18/2021, Additional history exists Depression [...] examination documented in this encounter Care Teams Fashion Editor Relationship Specialty Start Date End Date Yanick Canseco DO [address] [place] [place] [address] PCP - General Internal Medicine 04/07/22 documented as of this encounter
--- OUTSIDE RECORDS SUMMARY | 2023-03-04 16:30 | External Medical Summary | Summary of Care ---
Author Name Unknown Organization [facility] Address [address] [place] [address] Phone [phone] Care Team Providers Care Machine Silk Screen Printer Name Role Phone Yanick Canseco DO Primary Care Provider [phone] Reason for Visit * Reason Onset Date Comments Advice 01/16/2023 Encounter Details Date Type Department Care Team Description 01/16/2023 Telephone Family Practice 65 [facility] [address] [place] [address] Yanick Canseco DO [address] [place] [address] Advice Allergies Active Allergy Reactions Severity Noted [...] Tablet by mouth every evening. 0 Active [place]-3 Fatty Acids (ULTRA OMEGA 3) 952 MG CAPSIndications:Dy slipidemia, goal LDL below 100 One tab twice daily 180 Cap 1 04/19/2018 Active Coenzyme Q10 100 MG Oral Tablet Take 1 Tablet by mouth once. 0 Active DHEA 50 MG Oral Tablet Take 50 mg by mouth daily. 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 Please return his call at [phone] documented in this encounter Plan of Treatment Upcoming Encounters Date Type Specialty Care Team Description 02/23/2023 Office Visit Dermatology Laure Arias PA-C [address] [place] [address] [place] [address] 02/27/2023 Office Visit Cardiology Bessy Gill PA-C [address] [place] [address] 03/15/2023 Office Visit Family Medicine Yanick Canseco, DO [address] [place] [address] 03/17/2023 Office Visit Gastroenterology Patricia Mejia CRNP [address] [place] [address] Health Maintenance Due Date Last Done Comments GFR 04/27/2023 10/25/2022, 05/19, 06/06/2022, Additional history exists Albumin/Creatinine Ratio 09/07/2023 023, 09/21/2021, 09/10/2013, Additional history exists CKD HGB USE SMARTSET 20320 10/26/202310/25, 10/25/2022, 06/13/2022, Additional history exists TSH 10/26/2023 10/25/2022, 08/16, 05/27/2022, Additional history exists CKD PHOS USE SMARTSET 73763 12/14/202311/16, 10/11/2021, 03/18/2021, Additional history exists HbA1c [...] filedocumented as of this encounter Care Teams Machine Silk Screen Printer Relationship Specialty Start Date End Date Yanick Canseco, [address] [place] [address] PCP - General Internal Medicine 04/07/22 documented as of this encounter
--- OUTSIDE RECORDS SUMMARY | 2023-03-04 16:30 | External Medical Summary | Summary of Care ---
Author Name Unknown Organization [facility] Address [address] [place] [address] Phone [phone] Care Team Providers Care Special Education Director Name Role Phone Yanick Canseco DO Primary Care Provider [phone] Reason for Visit * Reason Onset Date Comments Appointment 01/12/2023 Encounter Details Date Type Department Care Team Description 01/12/2023 Telephone Nephrology, [facility] [address] [place] [address] Services, Scheduling [address] [place] [address] Appointment Allergies Active Allergy Reactions Severity Noted Date Comments Cat Dander 09/25/2014 Dog Dander 09/25/2014 Dust 09/23/2015 Pollen 09/25/2014 Losartan Other (Please comment) 03/02/2021 Hyperkalemia Morphine Nausea/vomiting Low 12/13/2017 Ragweed 09/25/2014 documented as of this encounter (statuses as of 01/12/2023) Medications Medication Sig Dispensed Refills Start Date [...] Tablet by mouth every evening. 0 Active [place]-3 Fatty Acids (ULTRA OMEGA 3) 952 MG CAPSIndications:Dy slipidemia, goal LDL below 100 One tab twice daily 180 Cap 1 04/19/2018 Active Coenzyme Q10 100 MG Oral Tablet Take 1 Tablet by mouth once. 0 Active DHEA 50 MG Oral Tablet Take 50 mg by mouth daily. 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 Overview: Hastings's esophagus: egd by Dr Grant () f/u EGD 2002- neg per pt Cyst of kidney, acquired Overview: followed at [place] documented as of this encounter (statuses as of 01/12/2023) Resolved Problems Problem Noted Date Resolved Date [...] 3.4 by CTA 08/09/2012 [facility] Other*[id number] 201005/24/2016 Shortness of breath 02/22/2011 12/08/2016 Aortocoronary [...] as of this encounter (statuses as of 01/12/2023) Immunizations Name Administration Dates Next Due COVID-19 [...] 02/23/2023 Office Visit Dermatology Laure Arias PA-C [address] [place] [address] [place] [address] 02/27/2023 Office Visit Cardiology Bessy Gill PA-C [address] [place] [address] 03/15/2023 Office Visit Family Medicine Yanick Canseco, DO [address] [facility] [place] [facility] [address] 03/17/2023 Office Visit Gastroenterology Patricia Mejia CRNP [address] [place] [address] Health Maintenance Due Date Last Done Comments GFR 04/27/2023 10/25/2022, 05/19, 06/06/2022, Additional history exists Albumin/Creatinine Ratio 09/07/2023 023, 09/21/2021, 09/10/2013, Additional history exists CKD HGB USE SMARTSET 29508 10/26/202310/25, 10/25/2022, 06/13/2022, Additional history exists TSH 10/26/2023 10/25/2022, 08/16, 05/27/2022, Additional history exists CKD PHOS USE SMARTSET 95658 12/14/202311/16, 10/11/2021, 03/18/2021, Additional history exists HbA1c [...] filedocumented as of this encounter Care Teams Special Education Director Relationship Specialty Start Date End Date Yanick Canseco, [address] [facility] [place] [facility] [address] PCP - General Internal Medicine 04/07/22 documented as of this encounter
--- OUTSIDE RECORDS SUMMARY | 2023-03-04 16:30 | External Medical Summary | Summary of Care ---
Author Name Unknown Organization [facility] Address [address] [facility] [place] [address] Phone [phone] Care Team Providers Care Phlebotomy Support Tech Name Role Phone Yanick Canseco DO Primary Care Provider [phone] Reason for Visit * Reason Onset Date Comments Advice 12/26/2022 Encounter Details Date Type Department Care Team Description 12/26/2022 Telephone Cardiology, [facility] [address] [place] [address] Erwin Weiner MD [address] [place] [id number] Advice Allergies Active Allergy Reactions Severity Noted [...] Tablet by mouth every evening. 0 Active [place]-3 Fatty Acids (ULTRA OMEGA 3) 952 MG CAPSIndications:D yslipidemia, goal LDL below 100 One tab twice daily 180 Cap 1 04/19/2018 Active Coenzyme Q10 100 MG Oral Tablet Take 1 Tablet by mouth once. 0 Active DHEA 50 MG Oral Tablet Take 50 mg by mouth daily. 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 Overview: Hastings's esophagus: egd by Dr Grant () f/u EGD 2001- per pt Cyst of kidney, acquired Overview: followed at [place] documented as of this encounter (statuses as [...] 3.4 by CTA 08/09/2012 [facility] [facility] [facility] Other*[id number] 201005/24/2016 Shortness of breath 02/22/2011 12/08/2016 Aortocoronary [...] 30 Mcg, IM, 12 yrs and above ([email or web address]) 04/19/2022 HEP A - Hepatitis A (Adult [...] Miscellaneous Notes * Telephone Encounter - EMILY Solorzano - [...] 02/23/2023 Office Visit Dermatology Laure Arias PA-C [address] [place] [address] [place] [address] 02/27/2023 Office Visit Cardiology Bessy Gill PA-C [address] [place] [address] 03/15/2023 Office Visit Family Medicine Yanick Canseco, [address] [facility] [place] [address] 03/15/2023 Office Visit Nephrology [facility] Issa [facility] [address] [facility] [address] 03/17/2023 Office Visit Gastroenterology Patricia Mejia CRNP [address] [place] [address] Health Maintenance Due Date Last Done Comments GFR 04/27/2023 10/25/2022, 05/19, 06/06/2022, Additional history exists Albumin/Creatinine Ratio 09/07/2023 023, 09/21/2021, 09/10/2013, Additional history exists CKD HGB USE SMARTSET 48690 10/26/202310/25, 10/25/2022, 06/13/2022, Additional history exists TSH 10/26/2023 10/25/2022, 08/16, 05/27/2022, Additional history exists CKD PHOS USE SMARTSET 08710 12/14/202311/16, 10/11/2021, 03/18/2021, Additional history exists HbA1c [...] filedocumented as of this encounter Care Teams Phlebotomy Support Tech Relationship Specialty Start Date End Date Yanick Canseco, [address] [place] [address] PCP - General Internal Medicine 04/07/22 documented as of this encounter
--- OUTSIDE RECORDS SUMMARY | 2023-03-04 16:30 | External Medical Summary | Summary of Care ---
Author Name Unknown Organization [facility] Address [address] [place] [address] Phone [phone] Care Team Providers Care Paper Sheeter Name Role Phone Yanick Canseco DO Primary Care Provider [phone] Encounter Details Date Type Department Care Team Description 01/12/2023 Patient [facility], [address] [place] [address] Pinky French, RN Medical home patient [...] Tablet by mouth every evening. 0 Active [place]-3 Fatty Acids (ULTRA OMEGA 3) 952 MG CAPSIndications:Dy slipidemia, goal LDL below 100 One tab twice daily 180 Cap 1 04/19/2018 Active Coenzyme Q10 100 MG Oral Tablet Take 1 Tablet by mouth once. 0 Active DHEA 50 MG Oral Tablet Take 50 mg by mouth daily. 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 Verified patient name/. Advised patient that call is beingrecorded for quality and training purposes. Assessment: Pt. noted the following: Pt called into CM requesting follow up with whether or not he can order his catheters on [employer]. CM sent request for information to [employer] via chat option on website. No response received yet at this time. Pt is scheduled for surgery on 01/26 at [facility] and pt is working on getting things ready for this. He denies any other immediate needs at this time. Did you receive an alert for an annual wellness visit? No Is this call for a hospital, senior care or rehab facility discharge to home? No Medication Reconciliation: Medication Reconciliation completed: yes Review of Current goals: Discussed the following patient-centered CM goals with the patient during this discussion: -: Patient will have issues addressed -Status: Completed -Advanced Directive (AD): Patient will complete Advanced Care Planning -Status: On Hold -Exacerbation: Patient will have exacerbation plan in place for chronic conditions -Status: On Track COPD Patient: No CHF Patient: NO CM Plan: Reviewed 3 Red Flags with patient. Advised to call CM with any of the following: Red Flag 1: weakness or dizziness, Red Flag 2: shortness of breath, or Red Flag 3: swelling of feet or hands Remote Patient Monitoring: At this time, RPM not offered/considered for patient due to NA. Plan for Future Contacts: Plan to follow up within 1 month to check progress on the following goals/needs health status. Planned contacts from the following parties will occur this week: N/A as additional contacts per workflow. Advancement/Closure Plan: Keep patient at current Tier with reassessment per workflow. Patient provided CM contact information and encouraged to call with any changes in condition. SNP Member? No PCP Notified of enrollment in CM/HM program: Yes Is Provider in agreement with POC? Yes Pinky French, RN Outpatient Case Management documented in this encounter Plan of Treatment Upcoming Encounters Date Type Specialty Care Team Description 02/23/2023 Office Visit Dermatology Laure Arias PA-C [address] [place] [address] [place] [address] 02/27/2023 Office Visit Cardiology Bessy Gill PA-C [address] [place] [address] 03/15/2023 Office Visit Family Medicine Yanick Canseco, DO [address] [place] [address] 03/17/2023 Office Visit Gastroenterology Patricia Mejia CRNP [address] [place] [address] Health Maintenance Due Date Last Done Comments GFR 04/27/2023 10/25/2022, 05/19, 06/06/2022, Additional history exists Albumin/Creatinine Ratio 09/07/2023 023, 09/21/2021, 09/10/2013, Additional history exists CKD HGB USE SMARTSET 00835 10/26/202310/25, 10/25/2022, 06/13/2022, Additional history exists TSH 10/26/2023 10/25/2022, 08/16, 05/27/2022, Additional history exists CKD PHOS USE SMARTSET 62984 12/14/202311/16, 10/11/2021, 03/18/2021, Additional history exists HbA1c [...] examination documented in this encounter Care Teams Paper Sheeter Relationship Specialty Start Date End Date Yanick Canseco, [address] [place] [address] PCP - General Internal Medicine 04/07/22 documented as of this encounter
--- OUTSIDE RECORDS SUMMARY | 2023-03-04 16:30 | External Medical Summary | Continuity of Care Document ---
Author Name Unknown Organization [facility] [address] [facility] E NTRANCE C Address [address] [id number] Care Team Providers Care Ripsaw Matcher Name Role Phone Yanick Canseco Primary Care Physician [phone] [id number] Date(s): 12/27/22 - 12/27/22 [facility] [address] [facility] ENTRANCE C [facility] [address] [address] Encounter Diagnosis BPH with urinary obstruction(Discharge Diagnosis) - 12/26/22 Neurogenic bladder(Discharge Diagnosis) - 12/26/22 Discharge Disposition: Home or Self Care Attending Physician: Devendra Mcwilliams MD, Anton Pardo Referring Physician: Devendra Mcwilliams MD, Anton Pardo Allergies, Adverse Reactions, Alerts Substance Reaction Severity Status morphine Nausea Mild Active Cats runny nose Active Dogs unknown Active Dust runny nose Active Pollen runny nose Active Ragweed runny nose Active Assessment and Plan Extracted from: Title:Urology Office Visit Note Author:Devendra purvis MD, Anton Pardo Date:12/26/22 1.BPH with urinary obstruc tion UnfortunatelyAdelaide is not being able to voidand he continues to do CIC. We tried to do auroflow and PVR today butunfortunatelyhe was able to pee only a few drops and then he had to use acatheter to empty given that he still had about 340 cc in the bladder. She has been in contact withLindsey from [employer] andcurrently the device is turned off. We have not been able tomakingvoid on his own and unfortunately we have run out of options. We did talk about the 50 pathology of this condition and the fact that after a long time with obstructionthe bladderchangesits composition from a muscular layer to a more fibrotic layer and thereforethe contractility of the bladder is not enough to empty the bladder and weend up with urinary retention. He understands andwe agreed to meet again in a yearto follow-up and he will continue using the CIC. 2.Neurogenic bladder We did a uroflow and PVR with minimal amount ofurine expelled and a PVR cc that he emptied with a catheter. I spent30 minutes with the patient and greater than 50% of the time was spent reviewing the history, and showing the radiologic imaging studies, discussing treatment options, risks and benefits. Medications allopurinol Start: 11/26/21 15:27:00 EDT, 100 mg =, PO, Daily Start Date: 11/26/21 Status: Ordered amLODIPine Start: 11/26/21 15:24:00 EDT, 2.5 mg =, PO, Daily Start Date: 11/26/21 Status: Ordered apixaban 2.5 mg oral tablet Start: 11/26/21 15:23:00 EDT, 1 tab, PO, bid Start Date: 11/26/21 Status: Ordered aspirin 81 mg oral capsule Start: 11/26/21 15:28:00 EDT, 1 cap, PO, Daily Start Date: 11/26/21 Status: Ordered atorvastatin Start: 11/26/21 15:26:00 EDT, 20 mg =, PO, Daily Start Date: 11/26/21 Status: Ordered carvedilol 12.5 mg oral tablet Start: 09/20/22 9:36:00 EDT, PO, 2 tabs qAM, 1 tab qPM Start Date: 09/20/22 Status: Ordered CoQ10 300 mg oral capsule Start: 11/26/21 15:28:00 EDT, 1 cap, PO, Daily Start Date: 11/26/21 Status: Ordered Cranberry Start: 10/11/22 11:30:00 EDT, 500 mg =, PO, qAM Start Date: 10/11/22 Status: Ordered DHEA 25 mg oral tablet Start: 10/11/22 11:31:00 EDT, 1 tab, PO, Daily Start Date: 10/11/22 Status: Ordered nitroglycerin Start: 11/26/21 15:24:00 EDT, 0.4 mg =, SL, q5min, PRN: as needed for chest pain Start Date: 11/26/21 Status: Ordered omeprazole Start: 11/26/21 15:25:00 EDT, 40 mg =, PO, Daily Start Date: 11/26/21 Status: Ordered Tylenol 8 Hour 650 mg oral tablet, extended release Start: 09/28/22 15:41:00 EDT, 2 tab, PO, q8h, Disp# 24 tab, Pharmacy: [facility] [id number] Start Date: 09/28/22 Status: Ordered Vitamin C 1000 mg oral tablet Start: 04/26/22 14:17:00 EST, 1 tab, PO, bid Start Date: 04/26/22 Status: Ordered vitamin E Start: 04/26/22 14:17:00 EST, 400 Int_Unit =, PO, every Monday and Monday Start Date: 04/26/22 Status: Ordered Mental Status 12/27/22 Mandatory Health Literacy Documentation Yes Health Literacy Communication Barriers N ever Primary Language Polish Problem List Condition Confirmation Course Effective Dates Status H ealth Status Informant BPH with urinary obstruction Confirmed Active Chronic kidney disease stage 3B Confirmed Active Gastroesophageal reflux disease Confirmed Active Gout Confirmed Active History of coronary artery bypass grafting Confirmed 10/15/07 Active Hyperlipidemia Confirmed 03/30/09 Active Hypothyroidism Confirmed Active Neurogenic bladder Confirmed 10/24/17 Active Obstructive sleep apnea syndrome Confirmed Active Diagnosis Diagnosis Type Effective Dates Health Status Clinical Service Informant Neurogenic bladder Discharge Diagnosis 12/26/22 BPH with urinary obstruction Discharge Diagnosis 12/26/22 Procedures Procedure Date Related Diagnosis Body Site Status INSERTION SACRAL NERVE STIMULATOR 1 09/28/22 Completed INSERTION SACRAL NERVE STIMULATOR 2 09/21/22 Completed Appendectomy Completed CABG - Coronary artery bypass graft Completed Esophageal cancer Complet ed Quadruple coronary artery by pass graft 3 Completed TURP - Transurethral resecti on of prostate 4 Completed 1auto-populated from documented surgical case 2auto-populated from documented surgical case 3post NV as per patient 4patient states multiple TURPs Vital Signs Most recent to oldest [Reference Range]: 1 Temperature [36.5-37.9 DegC] 36.3 DegC *LOW* (12/27/22 1:28 PM) Blood Pressure 138/57mmHg (12/27/22 1:28 PM) Cuff Pulse Pressure 81 mmHg (12/27/22 1:28 PM) Social History Social History Type Response Smoking Status Former Smoker, quit > 1 yr Sex Male Implantable Device List Procedure Provider Procedure Date Device Type Site Unknown Unknown 09/28/22 Unknown Unknown Device Identifier Serial Number Lot or Batch Number Manufacturing Date Expiration Date Distinct Identification Code MRI Safety Implantable Status Assigning Authority Unknown Unknown N/A Unknown 01/29/24 Unknown Unknown Active Unk nown Procedure Provider Procedure Date Device Type Site Unknown Unknown 09/21/22 Unknown Unknown Device Identifier Serial Number Lot or Batch Number Manufacturing Date Expiration Date Distinct Identification Code MRI Safety Implantable Status Assigning Authority Unknown Unknown [id number] Unknown 01/05/24 Unknown Unknown Active Unk nown Urology Outpatient Note * Devendra Mcwilliams MD, Anton Pardo: PERFORM, MODIFY Event Display: Urology Outpt Note Authored Date: [id number] Primary Care Provider DO Canseco Scott A Referring Provider Devendra Mcwilliams MD, Anton Pardo Reason for Consultation Urinary retention Chief Complaint Urinary retention History of Present Illness I saw Mr. Esquivel and his wifefor follow-up today at the [facility] urology outpatient clinic. He is 82-year-old gentlemanwho is struggled with lower urinary tract symptoms for quite some time andhad up to 4 TURPs in the past and is currentlyperforming clean intermittent catheterizations. He has been having recurrenturinary tract infections which he has received multipletreatments. He most recentlyunderwent stage I sacralneurostimulator implantation on 09/21/2022nd thenhad some improvement in his symptoms andwished to undergo stage II sacral neurostimulator implantation on 09/28/2022. He arrives todayfollow-up. He states since having the stage II implantationhe has noticed only 1 to 2% improvementin his lower urinary symptoms. He still performing clean intermittent catheterslesionsevery 3 hoursand is not currently measuring his volumes. He states he performs CIC 5-6 times a day. He states he does not typically void on his own every daybut this does happen occasionally. He states he does have some urgencywhen he is fullbut is "not a all of a sudden feeling." He otherwise denies any gross hematuriaordysuria. Deniesanysurgical incision concerns including drainage,tenderness, erythema, fevers or chills. [1] Review of Systems 14 point review of systems performed, positive for what is mentioned in the HPI, otherwise negative. Physical Exam General: Awake, alert, NAD HEENT: Oral mucosa pink and moist Pulmonary: Respirations symmetric and non labored Cardiovascular: No JVD bilaterally Abdomen: Non distended Extremities: Symmetric and well perfused Musculoskeletal: Normal independent ambulation Psychiatric: Normal mood and affect. Appropriate response to questioning. Skin: Warm and dry. Hematologic: No obvious bruising or bleeding. : Deferred today. Assessment/Plan 1.BPH with urinary obstruction UnfortunatelyAdelaide is not being able to voidand he continues to do CIC. We tried to do auroflow and PVR today butundaria was able to pee only a few drops and then he had to use acatheter to empty given that he still had about 340 cc in the bladder. She has been in contact withYuey from [employer] andcurrently the device is turned off. We have not been able tomakingvoid on his own and unfortunately we have run out of options. Wedid talk about the 50 pathology of this condition and the fact that after a long time with obstructionthe bladderchangesits composition from a muscular layer to a more fibrotic layer and thereforethe contractility of the bladder is not enough to empty the bladder and weend up with urinaryretention. He understands andwe agreed to meet again in a yearto follow-up and he will continue using the CIC. 2.Neurogenic bladder We did a uroflow and PVR with minimal amount ofurine expelled and a PVR [id number] cc that heemptied with a catheter. I spent30 minutes with the patient and greater than 50% of the time was spent reviewing the history, and showing the radiologic imaging studies, discussing treatment options, risks and benefits. Problem List/Past Medical History Ongoing BPH with urinary obstruction Chronic kidney disease stage 3B Gastroesophageal reflux disease Gout History of coronary artery bypass grafting Hyperlipidemia Hypothyroidism Neurogenic bladder Obstructive sleep apnea syndrome Procedure/Surgical History AppendectomyTURP - Transurethral resection of prostateEsophageal cancerCABG - Coronary artery bypass graftQuadruple coronary artery bypass graft Medications acetaminophen(Tylenol 8 Hour 650 mg oral tablet, extended release), 1300 mg= 2 tab, PO, q8h allopurinol, 100 mg, PO, Daily amLODIPine, 2.5 mg, PO, Daily apixaban(apixaban 2.5 mg oral tablet), 2.5 mg= 1 tab, PO, bid ascorbic acid(Vitamin C 1000 mg oral tablet), 1000 mg= 1 tab, PO, bid aspirin(aspirin 81 mg oral capsule), 81 mg= 1 cap, PO, Daily atorvastatin, 20 mg, PO, Daily carvedilol(carvedilol 12.5 mg oral tablet), PO cholecalciferol(Vitamin D3 1000 intl units (25 mcg) oral tablet), 2 tabs, PO, Daily cholestyramine(cholestyramine 4 g/9 g oral powder for reconstitution), 4 g, PO, Daily cranberry(Cranberry), 500 mg, PO, qAM dehydroepiandrosterone(DHEA 25 mg oral tablet), 25 mg= 1 tab, PO, Daily glucosamine(glucosamine 500 mg oral capsule), 500 mg= 1 cap, PO, Daily guaiFENesin, 600 mg, PO, bid, PRN lactobacillus acidophilus(Acidophilus Probiotic Blend) levothyroxine(levothyroxine 150 mcg (0.15 mg) oral tablet), 150 mcg= 1 tab, PO, Daily multivitamin, 1 tab, PO, Daily nitroglycerin, 0.4 mg, SL, q5min, PRN omega-3 polyunsaturated fatty acids([place]-3 350 mg oral capsule), 350 mg= 1 cap, PO, Daily omeprazole, 40 mg, PO, Daily tamSULOsin(tamsulosin 0.4 mg oral capsule), 0.4 mg= 1 cap, PO, Daily ubiquinone(CoQ10 300 mg oral capsule), 300 mg= 1 cap, PO, Daily vitamin E, 400 Int_Unit, PO Allergies morphine (Mild)Nausea Catsrunny nose Dogsunknown Dustrunny nose Pollenrunny nose Ragweedrunny nose Social History Smoking Status Former Smoker, quit > 1 yr Family History No significant urological history Recommendations Health Maintenance Pending(in the next year) OverDue Adult Influenza Vaccine due10/15/22and every 1year Due Body Mass Index due12/13/22and every 1year Adult COVID-19 Vaccination due12/26/22Unknown Frequency Adult Tdap/Td Vaccine due12/26/22Unknown Frequency Medicare Annual Wellness Visit due12/26/22and every 1year Pneumococcal Vaccine Older Adults due12/26/22One-time only Shingles Vaccine due12/26/22One-time only Satisfied(in the past 1 year) Satisfied Body Mass Index on09/28/22.Satisfied by MICKEY Mueller Kishia R [1]Surgery Office Visit Note; KIKA Lopez Sambina 10/11/2022 15:03 EDT Electronic Signature on File CC: Yanick Canseco DO [address] [place] [id number] * Electronically Reviewed/Signed by: Anton Mcwilliams MD Author Signature Dt/Tm:301:53 PM Urology CAN Patient Care team information Care Team Personnel Name: DO Canseco Scott A Position: Referring DIRECT Member Role: Primary Care Provider Address: Address: [address] [place] [address] [place] Care Team Related Persons Name: DEWEY ESQUIVEL Address: [address] [id number]
--- OUTSIDE RECORDS SUMMARY | 2023-03-04 16:30 | External Medical Summary | Summary of Care ---
Author Name Unknown Organization [facility] Address [address] [place] [address] Phone [phone] Care Team Providers Care Title One Teacher Name Role Phone Yanick Canseco DO Primary Care Provider [phone] Reason for Visit * Reason Onset Date Comments FYI 01/09/2023 Encounter Details Date Type Department Care Team Description 01/09/2023 Audit Practice Intern Telephone Family Practice [address], [address] [place] [address] Pinky French RN FYI Allergies Active Allergy Reactions Severity Noted Date [...] Tablet by mouth every evening. 0 Active [place]-3 Fatty Acids (ULTRA OMEGA 3) 952 MG CAPSIndications:Dy slipidemia, goal LDL below 100 One tab twice daily 180 Cap 1 04/19/2018 Active Coenzyme Q10 100 MG Oral Tablet Take 1 Tablet by mouth once. 0 Active DHEA 50 MG Oral Tablet Take 50 mg by mouth daily. 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 Overview: Hastings's esophagus: egd by Dr Grant () f/u EGD 2001- neg per pt Cyst of kidney, acquired Overview: followed at [facility] documented as of this encounter (statuses as [...] 3.4 by CTA 08/09/2012 [employer] Other*[id number] 201005/24/2016 Shortness of breath 02/22/2011 12/08/2016 Aortocoronary [...] Telephone Encounter - Pinky French RN - 01/09/2023 3:55 PM EDT SITUATION: Pt called in to this CM with update BACKGROUND: Pt was seen by [facility] Cardiology ASSESSMENT: Pt will be having post surgery testing done at [facility] on 01/25 and he will behaving cardiac catheterization on 01/26 per patient. RECOMMENDATION: Pt wanted to let PCP know as an FYI. No immediate needs at this time. Pinky French RN Family Practice [address] [facility] [address] [facility] [phone] documented in this encounter Plan of Treatment Upcoming Encounters Date Type Specialty Care Team Description 02/23/2023 Office Visit Dermatology Laure Arias PA-C [address] [place] [address] [place] [address] 02/27/2023 Office Visit Cardiology Bessy Gill PA-C [address] [place] [address] 03/15/2023 Office Visit Family Medicine Yanick Canseco DO [address] [place], [place] [phone] 03/17/2023 Office Visit Gastroenterology Patricia Mejia CRNP [address] [place] [address] Health Maintenance Due Date Last Done Comments GFR 04/27/2023 10/25/2022, 05/19, 06/06/2022, Additional history exists Albumin/Creatinine Ratio 09/07/2023 023, 09/21/2021, 09/10/2013, Additional history exists CKD HGB USE SMARTSET 65385 10/26/202310/25, 10/25/2022, 06/13/2022, Additional history exists TSH 10/26/2023 10/25/2022, 08/16, 05/27/2022, Additional history exists CKD PHOS USE SMARTSET 87961 12/14/202311/16, 10/11/2021, 03/18/2021, Additional history exists HbA1c [...] examination documented in this encounter Care Teams Title One Teacher Relationship Specialty Start Date End Date Yanick Canseco, [address] [place] [address] PCP - General Internal Medicine 04/07/22 documented as of this encounter
--- OUTSIDE RECORDS SUMMARY | 2023-03-04 16:31 | External Medical Summary | Summary of Care ---
Author Name Unknown Organization [facility] Address [address] [place] [address] Phone [phone] Care Team Providers Care Marine Operations Coordinator Name Role Phone Génesis Canseco DO Primary Care Provider [phone] Encounter Details Date Type Department Care Team Description 12/12/2022 Refill Family Practice [address] [facility] [place] [address] [place] [phone] Génesis Canseco DO [address] [place], [place] [phone] Atrial fibrillation with RVR (HCC) Allergies Active Allergy Reactions Severity Noted Date Comments Cat Dander 09/25/2014 Dog Dander 09/25/2014 Dust 09/23/2015 Pollen 09/25/2014 Losartan Other (Please comment) 03/02/2021 Hyperkalemia Morphine Nausea/vomiting Low 12/13/2017 Ragweed 09/25/2014 documented as of this encounter (statuses as of 12/12/2022) Medications Medication Sig Dispensed Refills Start Date [...] 180 Cap 1 04/19/2018 Active Coenzyme Q10 300 MG Oral Wafer Take 600 mg by mouth once. 0 Active DHEA 50 MG Oral Tablet Take 50 mg by mouth daily. 0 Active Nitroglycerin 0.4 MG Sublingual Tablet Sublingual (Nitrostat)Indica tions:Atheroscler [place] of [place] coronary artery of [place] heart without angina pectoris Place under the tongue 1 Tablet every 5 minutes as needed for Pain, Chest. Maximum 3 doses. 25 Tablet 5 09/07/2021 Active Vitamin D 25 MCG (1000 UT) Oral Tablet 2 Tablets daily. 0 09/07/2021 Active Cranberry 500 MG Oral Capsule Take 1 Capsule by mouth in the morning. 0 04/19/2022 Active guaiFENesin ER 600 MG Oral Tablet Extended Release 12 Hour Take 1 Tablet by mouth 2 times a day as needed for Congestion. 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 09/08/2005 Other allergic rhinitis 02/28/2001 Overview: ICD-10 update of inactive term 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 Overview: Hastings's esophagus: egd by Dr Grant () f/u EGD 2001- per pt Cyst of kidney, acquired Overview: followed at [place] documented as of this encounter (statuses as of 12/12/2022) Resolved Problems Problem Noted Date Resolved Date [...] 3.4 by CTA 08/09/2012 [facility] [facility] Other*[id number] 201005/24/2016 Shortness of breath 02/22/2011 12/08/2016 Aortocoronary [...] as of this encounter (statuses as of 12/12/2022) Immunizations Name Administration Dates Next Due COVID-19 mRNA, LNP-s, No Pre serve, 2-Dose Series (Moderna) 06/10/2020,05/13/2020 COVID-19, LNP-s, No Preserve , Adiel-sucrose, Ages 12+ (Pfizer) 12/06/2021 Covid-19 Mrna, Lnp-s, No Pre serve, Booster (Moderna) 02/24/2021 Covid-19, Mrna, Lnp-s, Pf, B ivalent, 30 Mcg, IM, 12 yrs and above ([employer]) 04/19/2022 HEP A - Hepatitis A (Adult [...] got money to buy more. Never true 11/08/2022 Within the past 12 months, t he food you bought just didn't last and you didn't have money to get more. Never true 11/08/2022 Sex Assigned at Date Recorded Male 08/03/2022 9:25 AM E DT Job Start Date Occupation Industry Not on file Not on file Not on file documented as of this encounter Miscellaneous Notes * Telephone Encounter - Alejandro Odonnell [facility] - 12/12/2022 9:13 PM EDT Signed Prescriptions: Disp Refills Carvedilol 12.5 MG Oral Tablet (Coreg) 300 Ta*1 Sig: TAKE TWO TABLETS BY MOUTH EVERY DAY IN THE MORNING AND TAKE ONE TABLET BY MOUTH EVERY DAY IN THE EVENINGAuthorizing Provider: GÉNESIS CANSECO User: ALEJANDRO ODONNELL * Telephone Encounter - EMILY Perez - 12/12/2022 9:33 AM EDT Pt calling in for a refill Did you pend patient's preferred pharmacy and medication before forwarding?yes Pharmacy: [facility] Pending Prescriptions: Disp Refills Carvedilol 12.5 MG Oral Tablet (Coreg) 90 Tab*5 Last Visit: 11/08/2022 (in office), Visit date not found (telemedicine) Next Visit: 12/13/2022 If no future appointments scheduled, and last appointment is greater than a year ago, please schedule patient for a follow-up appointment Last date the medication was ordered: 09/07/2022 Is this request for a controlled substance?No [...] ALT 16 (L) 06/19/1996 09:00 AM HGBA1C 6.1 (H) 09/05/2022 10:57 AM HGBA1C 5.9 (H) 02/19/2020 11:37 AM documented in this encounter Plan of Treatment Upcoming Encounters Date Type Specialty Care Team Description 12/13/2022 Office Visit Family Medicine Génesis Canseco, DO [address] [place] [address] 02/23/2023 Office Visit Dermatology Laure Arias PA-C [address] [place] [address] [place] [address] 02/27/2023 Office Visit Cardiology Bessy Gill PA-C [address] [place] [address] 03/15/2023 Office Visit Nephrology Ryan Issa MD [address] [place] [address] 03/17/2023 Office Visit Gastroenterology Patricia Mejia CRNP [address] [place] [address] Health Maintenance Due Date Last Done Comments CKD PHOS USE SMARTSET 75583 10/11/202209/16, 03/18/2021, 03/02/2021, Additional history exists Influenza Vaccine (FLU shot) (#1) 2022 02/03/2022, 03/02/2021, 01/28/2020, Additional history exists GFR 04/27/2023 10/25/2022, 05/19, 06/06/2022, Additional history exists HbA1c 09/06/2023 09/05/2022, 02/16, 03/02/2021, Additional history exists Albumin/Creatinine Ratio 09/07/2023 023, 09/21/2021, 09/10/2013, Additional history exists CKD HGB USE SMARTSET 40975 10/26/202310/25, 10/25/2022, 06/13/2022, Additional history exists TSH 10/26/2023 10/25/2022, 08/16, 05/27/2022, Additional history exists Depression Screening, Annual for Pts 12 and Over 11/09/2023 11/08/2022 DTaP,Tdap,and Td Vaccines (2 - Td or [...] as of this encounter Visit Diagnoses Diagnosis Atrial fibrillation with RVR (HCC) Atrial fibrillation documented in this encounter Care Teams Marine Operations Coordinator Relationship Specialty Start Date End Date Génesis Canseco, DO [address] [place] [address] PCP - General Internal Medicine 04/07/22 documented as of this encounter
--- OUTSIDE RECORDS SUMMARY | 2023-03-04 16:31 | External Medical Summary ---
Author Name Unknown Address Unknown Organization K01:[facility] [address] [place] [address] Laboratory Report Ordering Provider Test Date Status CULLEN CAPPS 12/13/2022 10:53:31 Final Observation Date Value Abnormality Reference (Units ) Status Phosphate 12/13/2022 10:53:31 3.1 2.5-4.8 (m g/dL) Final Performing Location [facility] [address] [place] [address]
--- OUTSIDE RECORDS SUMMARY | 2023-03-04 16:31 | External Medical Summary | Summary of Care ---
Author Name Unknown Organization [facility] Address [address] [facility] [place] [address] Phone [phone] Care Team Providers Care Rfid Analyst Name Role Phone Yanick Canseco DO Primary Care Provider [phone] Reason for Visit * Reason Onset Date Comments Test Results 12/08/2022 Encounter Details Date Type Department Care Team Description 12/08/2022 Telephone Cardiology, [facility] [address] [place] [address] Erwin Weiner MD [address] [place] [address] Test Results Allergies Active Allergy Reactions Severity Noted Date Comments Cat Dander 09/25/2014 Dog Dander 09/25/2014 Dust 09/23/2015 Pollen 09/25/2014 Losartan Other (Please comment) 03/02/2021 Hyperkalemia Morphine Nausea/vomiting Low 12/13/2017 Ragweed 09/25/2014 documented as of this encounter (statuses as of 12/08/2022) Medications Medication Sig Dispensed Refills Start Date [...] Tablet by mouth every evening. 0 Active [place]-3 Fatty Acids (ULTRA OMEGA 3) 952 MG CAPSIndications:Dy slipidemia, goal LDL below 100 One tab twice daily 180 Cap 1 04/19/2018 Active Coenzyme Q10 300 MG Oral Wafer Take 600 mg by mouth once. 0 Active DHEA 50 MG Oral Tablet Take 50 mg by mouth daily. 0 Active Nitroglycerin 0.4 MG Sublingual Tablet Sublingual (Nitrostat)Indicat ions:Atheroscleros is of [place] coronary artery of [place] heart without angina pectoris Place under the [...] 06/10/2022 Active Allopurinol 100 MG Oral Tablet (Zyloprim)Indicati ons:Gouty arthropathy TAKE ONE TABLET BY MOUTH IN THE MORNING AND TAKE ONE TABLET BEFORE BEDTIME 200 Tablet 3 10/10/2022 4 Active Carvedilol 12.5 MG Oral Tablet (Coreg)Indications :Atrial fibrillation with RVR (HCC) TAKE TWO TABLETS BY MOUTH EVERY DAY IN THE MORNING AND TAKE ONE TABLET BY MOUTH EVERY DAY IN THE EVENING 90 Tablet 5 09/08/2022 4 Active Nitrofurantoin Macrocrystal 50 MG Oral [...] OTHER MEDS 100 Tablet 1 12/08/2022 Active documented as of this encounter (statuses as of 12/08/2022) Active Problems Problem Noted Date Infrarenal abdominal [...] artery bypass graft 10/15/2007 Coronary atherosclerosis of [place] coron martha artery 10/15/2007 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 09/08/2005 Other allergic rhinitis 02/28/2001 Overview: ICD-10 update of inactive term 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 Overview: Hastings's esophagus: egd by Dr Grant () f/u EGD 2001- neg per pt Cyst of kidney, acquired Overview: followed at [place] documented as of this encounter (statuses as of 12/08/2022) Resolved Problems Problem Noted Date Resolved Date [...] 3.4 by CTA 08/09/2012 [employer] Other*[id number] 201005/24/2016 Shortness of breath 02/22/2011 12/08/2016 Aortocoronary [...] as of this encounter (statuses as of 12/08/2022) Immunizations Name Administration Dates Next Due COVID-19 mRNA, LNP-s, No Pre serve, 2-Dose Series (Moderna) 06/10/2020,05/13/2020 COVID-19, LNP-s, No Preserve , Adiel-sucrose, Ages 12+ (Pfizer) 12/06/2021 Covid-19 Mrna, Lnp-s, No Pre serve, Booster (Moderna) 02/24/2021 Covid-19, Mrna, Lnp-s, Pf, B ivalent, 30 Mcg, IM, 12 yrs and above ([employer]) 04/19/2022 HEP A - Hepatitis A (Adult [...] encounter Miscellaneous Notes * Telephone Encounter - Alba Johns CMA - 12/08/2022 12:14 PM EDT Letter sent * Telephone Encounter - Alba Johns CMA - 12/08/2022 12:12 PM EDT ----- Message from Erwin Weiner MD sent at 12/07/2022 2:05 PM EDT ----- Echocardiogram is similar to prior studies, good. Aortic insufficiency remains moderate in overall heart function is normal. documented in this encounter Plan of Treatment Upcoming Encounters Date Type Specialty Care Team Description 12/13/2022 Office Visit Family Medicine Yanick Canseco, DO [address] [facility] [place] [address] 02/23/2023 Office Visit Dermatology Laure Arias PA-C [address] [place] [address] [place] [address] 02/27/2023 Office Visit Cardiology Bessy Gill PA-C [address] [place] [address] 03/15/2023 Office Visit Nephrology Ryan Issa MD [address] [place] [address] 03/17/2023 Office Visit Gastroenterology Patricia Mejia CRNP [address] [place] [address] Health Maintenance Due Date Last Done Comments CKD PHOS USE SMARTSET 71217 10/11/202209/16, 03/18/2021, 03/02/2021, Additional history exists Influenza Vaccine (FLU shot) (#1) 2022 02/03/2022, 03/02/2021, 01/28/2020, Additional history exists GFR 04/27/2023 10/25/2022, 05/19, 06/06/2022, Additional history exists HbA1c 09/06/2023 09/05/2022, 02/16, 03/02/2021, Additional history exists Albumin/Creatinine Ratio 09/07/2023 023, 09/21/2021, 09/10/2013, Additional history exists CKD HGB USE SMARTSET 88212 10/26/202310/25, 10/25/2022, 06/13/2022, Additional history exists TSH [...] filedocumented as of this encounter Care Teams Rfid Analyst Relationship Specialty Start Date End Date Yanick Canseco, DO [address] [place] [address] PCP - General Internal Medicine 04/07/22 documented as of this encounter
--- OUTSIDE RECORDS SUMMARY | 2023-03-04 16:31 | External Medical Summary | Summary of Care ---
Author Name Unknown Organization [facility] Address [address] [place] [address] Phone [phone] Care Team Providers Care Operations And Maintenance Manager Name Role Phone Yanick Canseco DO Primary Care Provider [phone] Reason for Visit * Reason Onset Date Comments Test Results 12/14/202212/14 Encounter Details Date Type Department Care Team Description 12/14/2022 Telephone Family Practice [address] [facility] [address] [place] [phone] Yanick Canseco [address] [place] [address] Test Results (12/14) Allergies Active Allergy Reactions Severity Noted Date Comments Cat Dander 09/25/2014 Dog Dander 09/25/2014 Dust 09/23/2015 Pollen 09/25/2014 Losartan Other (Please comment) 03/02/2021 Hyperkalemia Morphine Nausea/vomiting Low 12/13/2017 Ragweed 09/25/2014 documented as of this encounter (statuses as of 12/14/2022) Medications Medication Sig Dispensed Refills Start Date [...] Tablet by mouth every evening. 0 Active [place]-3 Fatty Acids (ULTRA OMEGA 3) 952 MG CAPSIndications:Dy slipidemia, goal LDL below 100 One tab twice daily 180 Cap 1 04/19/2018 Active Coenzyme Q10 100 MG Oral Tablet Take 1 Tablet by mouth once. 0 Active DHEA 50 MG Oral Tablet Take 50 mg by mouth daily. 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 Overview: Hastings's esophagus: egd by Dr Grant () f/u EGD 2001- per pt Cyst of kidney, acquired Overview: followed at [place] documented as of this encounter (statuses as of 12/14/2022) Resolved Problems Problem Noted Date Resolved Date [...] 3.4 by CTA 08/09/2012 [employer] Other*[id number] 201005/24/2016 Shortness of breath 02/22/2011 12/08/2016 Aortocoronary [...] as of this encounter (statuses as of 12/14/2022) Immunizations Name Administration Dates Next Due COVID-19 [...] as of this encounter Miscellaneous Notes * Addendum Note - Darian Aparicio RN - 12/14/2022 3:12 PM EDTAddended by: DARIAN APARICIO on: 12/14/2022 03:12 PM Modules accepted: Orders * Telephone Encounter - Darian Aparicio RN - 12/14/2022 3:10 PM EDT Call to pt-notified of message below. Pt states he will watch his diet and will have repeat HGA1C done in 4 months. Declines appt with dental nurse. Told to monitor his sweet, carbohydrate, breads, pastas intake. Order placed. * Telephone Encounter - EMILY Tena - 12/14/2022 3:05 PM EDT Returned call to MJ * Telephone Encounter - Darian Aparicio RN - 12/14/2022 3:00 PM EDT Call to pt-no answer-message left to call back at [phone] * Telephone Encounter - Darian Aparicio RN - 12/14/2022 2:59 PM EDT ----- Message from Yanick Canseco DO sent at 12/14/2022 7:49 AM EDT ----- Hgab1c is in prediabetic range. Repeat Hgba1c in 4 months. documented in this encounter Plan of Treatment Upcoming Encounters Date Type Specialty Care Team Description 12/26/2022 Imaging Radiology 02/23/2023 Office Visit Dermatology Laure Arias PA-C [address] [place] [address] [place] [address] 02/27/2023 Office Visit Cardiology Bessy Gill PA-C [address] [facility] [address] 03/15/2023 Office Visit Family Medicine Yanick Canseco DO [address] [place] [address] 03/15/2023 Office Visit Nephrology Ryan Issa MD [address] [place] [address] 03/17/2023 Office Visit Gastroenterology Patricia Mejia CRNP [address] [place] [address] Scheduled Orders Name Type Priority Associated Diagnoses Orde r Schedule HEMOGLOBIN A1C Lab Routine Prediabetes Expected: 04/12/2023 (Approximate), Expires: 12/14/2023 Health Maintenance Due Date Last Done Comments Influenza Vaccine (FLU shot) (#1) 2022 02/03/2022, 03/02/2021, 01/28/2020, Additional history exists GFR 04/27/2023 10/25/2022, 05/19, 06/06/2022, Additional history exists Albumin/Creatinine Ratio 09/07/2023 023, 09/21/2021, 09/10/2013, Additional history exists CKD HGB USE SMARTSET 02503 10/26/202310/25, 10/25/2022, 06/13/2022, Additional history exists TSH 10/26/2023 10/25/2022, 08/16, 05/27/2022, Additional history exists CKD PHOS USE SMARTSET 38205 12/14/202311/16, 10/11/2021, 03/18/2021, Additional history exists Depression Screening, Annual for Pts 12 and Over 12/14/2023 12/13/2022 HbA1c 12/14/2023 12/13/2022, 08/16, 03/09/2022, [...] as of this encounter Visit Diagnoses Diagnosis Prediabetes- Primary Other abnormal glucose documented in this encounter Care Teams Operations And Maintenance Manager Relationship Specialty Start Date End Date Yanick Canseco, [address] [place] [address] PCP - General Internal Medicine 04/07/22 documented as of this encounter
--- OUTSIDE RECORDS SUMMARY | 2023-03-04 16:31 | External Medical Summary | Summary of Care ---
Author Name Unknown Organization [facility] Address [address] [place] [address] Phone [phone] Care Team Providers Care Senior Architect/Design Manager Name Role Phone Yanick Canseco DO Primary Care Provider [phone] Reason for Visit * Reason Onset Date Comments Test Results 12/14/202212/14 Encounter Details Date Type Department Care Team Description 12/14/2022 Telephone Family Practice [facility] [address] [place] [phone] Yanick Canseco [address] [place] [address] Test Results (12/14) Allergies Active Allergy Reactions [...] Tablet by mouth every evening. 0 Active [place]-3 Fatty Acids (ULTRA OMEGA 3) 952 MG CAPSIndications:Dy slipidemia, goal LDL below 100 One tab twice daily 180 Cap 1 04/19/2018 Active Coenzyme Q10 100 MG Oral Tablet Take 1 Tablet by mouth once. 0 Active DHEA 50 MG Oral Tablet Take 50 mg by mouth daily. 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 Declines appt with cleaning professional. Told to monitor his sweet, carbohydrate, breads, pastas intake. Order placed. * Telephone Encounter - EMILY Tena - 12/14/2022 3:05 PM EDT Returned call to MJ * Telephone Encounter - Darian Aparicio RN - 12/14/2022 3:00 PM EDT Call to pt-no answer-message left to call back at [phone] * Telephone Encounter - Darian Aparicio RN - 12/14/2022 2:59 PM EDT ----- Message from Yanick Canseco DO sent at 12/14/2022 7:49 AM EDT ----- Hgab1c is in prediabetic range. Repeat Hgba1c in 4 months. documented in this encounter Plan of Treatment Upcoming Encounters Date Type Specialty Care Team Description 12/26/2022 Imaging Radiology 02/23/2023 Office Visit Dermatology Laure Arias PA-C [address] [place] [address] [place] [address] 02/27/2023 Office Visit Cardiology Bessy Gill PA-C [address] [facility] [place] [address] 03/15/2023 Office Visit Family Medicine Yanick Canseco DO [address] [place] [address] 03/15/2023 Office Visit Nephrology Ryan Issa MD 200 [place] [address] 03/17/2023 Office Visit [facility]astroenterology Patricia [facility]jia CRNP [address] [facility] [address] Scheduled Orders Name Type Priority Associated Diagnoses Orde r Schedule HEMOGLOBIN A1C Lab Routine Prediabetes Expected: 04/12/2023 (Approximate), Expires: 12/14/2023 Health Maintenance Due Date Last Done Comments Influenza Vaccine (FLU shot) (#1) 2022 02/03/2022, 03/02/2021, 01/28/2020, Additional history exists GFR 04/27/2023 10/25/2022, 05/19, 06/06/2022, Additional history exists Albumin/Creatinine Ratio 09/07/2023 023, 09/21/2021, 09/10/2013, Additional history exists CKD HGB USE SMARTSET 43008 10/26/202310/25, 10/25/2022, 06/13/2022, Additional history exists TSH 10/26/2023 10/25/2022, 08/16, 05/27/2022, Additional history exists CKD PHOS USE SMARTSET 74146 12/14/202311/16, 10/11/2021, 03/18/2021, Additional history exists Depression [...] glucose documented in this encounter Care Teams Senior Architect/Design Manager Relationship Specialty Start Date End Date Yanick Canseco, [address] [facility] [place] [address] PCP - General Internal Medicine 04/07/22 documented as of this encounter
--- OUTSIDE RECORDS SUMMARY | 2023-03-04 16:31 | External Medical Summary ---
Author Name Unknown Address Unknown Organization K01:[facility] [place] [address] [place] [address] Laboratory Report Ordering Provider Test Date Status CULLEN CAPPS 12/13/2022 10:53:31 Final Observation Date Value Abnormality Reference (Units ) Status HbA1C 12/13/2022 10:53:31 6.2 Above high normal 4. 0-5.6 (%) Final The use of HbA1c to monitor glycemic status is based on normal hemoglobin and HbA composition. This test should not be used in patients with abnormal hemoglobin that affects the half life of the red blood cell or the in vivo glycation rates. Glucose, estimated average 12/13/2022 10:53:31 131 Above high normal <126 (mg/dL) Raphael ghosh Performing Location [facility] [place] [address] [place] [address]
--- OUTSIDE RECORDS SUMMARY | 2023-03-04 16:31 | External Medical Summary | Summary of Care ---
Author Name Unknown Organization [facility] Address [address] [place] [address] Phone [phone] Care Team Providers Care Family Worker Name Role Phone Yanick Canseco DO Primary Care Provider [phone] Reason for Visit * Reason Onset Date Comments Advice 12/23/2022 Encounter Details Date Type Department Care Team Description 12/23/2022 Stock Wetter Telephone Family Practice [address] [place] [address] [place] [address] Pinky French, senior media buyer Allergies Active Allergy Reactions Severity Noted Date [...] Tablet by mouth every evening. 0 Active [place]-3 Fatty Acids (ULTRA OMEGA 3) 952 MG CAPSIndications:Dy slipidemia, goal LDL below 100 One tab twice daily 180 Cap 1 04/19/2018 Active Coenzyme Q10 100 MG Oral Tablet Take 1 Tablet by mouth once. 0 Active DHEA 50 MG Oral Tablet Take 50 mg by mouth daily. 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 See clinic note from today Patient may need assistance entering my [facility] * Telephone Encounter - Pinky French RN - 12/23/2022 11:35 AM EDT SITUATION: CM received t/c requesting urgent appointment with Cardiology to discuss possibility of open heart sugery. BACKGROUND: Pt was seen at [facility] this week and they would like to possibly schedule pt for this but he wants to discuss with his PCP and with Dr. Weiner in Cardiology prior to scheduling. ASSESSMENT: Denies any current chest pain, palpitations, weakness or dizziness. RECOMMENDATION: Please call to patient and follow up or schedule for appointment if able and in agreement. He is scheduled next for Cardiology in February but he would ideally like to have this discussion NOAM. Thank you, Pinky French RN Family Practice 65 [facility] [address] [facility] [address] documented in this encounter Plan of Treatment Upcoming Encounters Date Type Specialty Care Team Description 12/28/2022 Office Visit Family Medicine Yanick Canseco DO 293 [facility], [place] [id number] 02/23/2023 Office Visit Dermatology Laure Arias, PAKateC [address] [place] [address] [place] [address] 02/27/2023 Office Visit Cardiology Bessy Gill PA-C [address] [place] [address] 03/15/2023 Office Visit Family Medicine Yanick Canseco, [address] [place] [address] 03/15/2023 Office Visit Nephrology Ryan Issa MD [address] [facility] [place] [address] 03/17/2023 Office Visit Gastroenterology Patricia Mejia CRNP [address] [place] [address] Health Maintenance Due Date Last Done Comments Influenza Vaccine (FLU shot) (#1) 2022 02/03/2022, 03/02/2021, 01/28/2020, Additional history exists GFR 04/27/2023 10/25/2022, 05/19, 06/06/2022, Additional history exists Albumin/Creatinine Ratio 09/07/2023 023, 09/21/2021, 09/10/2013, Additional history exists CKD HGB USE SMARTSET 12572 10/26/202310/25, 10/25/2022, 06/13/2022, Additional history exists TSH 10/26/2023 10/25/2022, 08/16, 05/27/2022, Additional history exists CKD PHOS USE SMARTSET 32253 12/14/202311/16, 10/11/2021, 03/18/2021, Additional history exists Depression [...] filedocumented as of this encounter Care Teams Family Worker Relationship Specialty Start Date End Date Yanick Canseco, [address] [place] [address] PCP - General Internal Medicine 04/07/22 documented as of this encounter
--- OUTSIDE RECORDS SUMMARY | 2023-03-04 16:31 | External Medical Summary | Summary of Care ---
Author Name Unknown Organization [facility] Address [address] [place] [address] Phone [phone] Care Team Providers Care Hot Knife Cutter Name Role Phone Yanick Canseco DO Primary Care Provider [phone] Reason for Visit * Reason Onset Date Comments Medication Refill 12/07/2022 Encounter Details Date Type Department Care Team Description 12/07/2022 Refill Family Practice [facility] [address] [place] [address] Yanick Canseco DO [address] [place] [address] Encounter for long-term (current) use of medications* Allergies Active Allergy Reactions Severity Noted Date [...] Tablet by mouth every evening. 0 Active [place]-3 Fatty Acids (ULTRA OMEGA 3) 952 MG CAPSIndications:D yslipidemia, goal LDL below 100 One tab twice daily 180 Cap 1 04/19/2018 Active Coenzyme Q10 300 MG Oral Wafer Take 600 mg by mouth once. 0 Active DHEA 50 MG Oral Tablet Take 50 mg by mouth daily. 0 Active Nitroglycerin 0.4 MG Sublingual Tablet Sublingual (Nitrostat)Indica tions:Atheroscler osis of [place] coronary artery of [place] heart without angina pectoris Place under the [...] 4 Active Carvedilol 12.5 MG Oral Tablet (Coreg)Indication [...] OTHER MEDS 100 Tablet 1 12/08/2022 Active Levothyroxine Sodium 150 MCG Oral Tablet (Levoxyl) TAKE ONE TABLET BY MOUTH EVERY MORNING AT LEAST 30 MINUTES PRIOR TO BREAKFAST OR OTHER MEDS 100 Tablet 1 05/30/2022 3 Discontinu ed(Refill) documented as of this [...] artery bypass graft 10/15/2007 Coronary atherosclerosis of [place] coron martha artery 10/15/2007 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 09/08/2005 Other allergic rhinitis 02/28/2001 Overview: ICD-10 update of inactive term 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 Sent patient a [employer] message to let him know. Gia Kline, Pharm D, BCACP Clinical Pharmacist [facility] 12/08/2022, 8:14 AM Ph. [phone] * Telephone Encounter - EMILY Perez - 12/08/2022 7:42 AM EDT I advised patient of this yesterday, however; pt requested I send message to Gia to order for himas "there is always an issue when someone else orders them" Gia - I can contact patient or you can, just let me know. * Telephone Encounter - Darline Butcher [facility] - 12/08/2022 6:33 AM EDT There are still refills remaining on Atorvastatin. Please advise patient to contact pharmacy for refill Thank You, Darline Butcher [facility] Clinical Pharmacist [facility] ([facility]) (formerly Telepharmacy) [phone] 12/08/2022, 6:34 AM * Telephone Encounter - Celina Malloy, EMILY - 12/07/2022 10:03 AM EDT Pending Prescriptions: Disp Refills Atorvastatin Calcium 20 MG Oral Tablet (L*100 Ta*3 Levothyroxine Sodium 150 MCG Oral Tablet *100 Ta*1 Last Visit: 11/08/2022 (in office), Visit date not found (telemedicine) Next Visit: 12/13/2022 Last date the medication was ordered: Levothyroxine - 2.13.23 Atorvastatin - 1.4.23 Patient Active Problem List Diagnosis Code Other allergic rhinitis J30.89 Hastings's esophagus with high grade dysplasia K22.711 Cyst of kidney, acquired N28.1 BPH without obstruction/lower urinary tract symptoms N40.0 History of coronary artery bypass graft Z95.1 Coronary atherosclerosis of [place] coronary artery I25.10 Gouty arthropathy M10.9 Disc [...] 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 (HCC) I71.43 Labs: Lab Results Component Value Date/Time CREATININE 1.1 06/19/1996 09:00 AM CREATININE - [facility] 1.3 (H) 10/25/2022 02:42 PM CREATININE - [facility] 1.5 (H) 02/19/2020 11:37 AM CREATININE, RANDOM URINE - [facility] 81 09/06/2022 11:30 AM CREATININE, RANDOM URINE - [facility] 105 04/04/2017 08:11 AM CREATININE-OUTSIDE LAB 1.18 08/07/2018 12:00 AM Lab Results Component Value Date/Time POTASSIUM 4.4 06/19/1996 09:00 AM POTASSIUM - [facility] 4.6 10/25/2022 02:42 PM POTASSIUM - [facility] 5.0 02/21/2020 12:20 PM POTASSIUM-OUTSIDE LAB 4.4 08/07/2018 12:00 AM Lab Results Component Value Date/Time TSH - [facility] 1.39 10/25/2022 02:42 PM TSH - [facility] 2.03 04/21/2020 10:27 AM TSH - OUTSIDE LAB 59.500 (A) 10/25/2017 12:00 AM Lab Results Component Value Date/Time LDL (CALCULATED) 131. (H) 06/19/1996 09:00 AM LDL CHOLESTEROL (CALCULATED) - [facility] 26 09/05/2022 10:57 AM LDL CHOLESTEROL (CALCULATED) - [facility] 33 09/15/2020 12:34 PM LDL CHOLESTEROL (CALCULATED) - [facility] 37 09/27/2019 12:15 PM LDL CHOLESTEROL (CALCULATED) - [facility] 52 04/09/2019 11:49 AM LDL CHOLESTEROL (DIRECT MEASURE) - [facility] 58 09/20/2021 07:57 AM LDL CHOLESTEROL (DIRECT MEASURE) - [facility] 48 10/14/2020 09:20 AM LDL CHOLESTEROL (DIRECT MEASURE) - [facility] NOT APPLICABLE 09/27/2019 12:15 PM LDL CHOLESTEROL (DIRECT MEASURE) - [facility] NOT APPLICABLE 04/09/2019 11:49 AM Lab Results Component Value Date/Time ALT 16 (L) 06/19/1996 09:00 AM ALT - [facility] 13 10/25/2022 02:42 PM ALT - [facility] 14 12/02/2019 03:00 PM Hemoglobin AIC Results: Lab Results Component Value Date/Time HEMOGLOBIN A1C - [facility] 6.1 (H) 09/05/2022 10:57 AM HEMOGLOBIN A1C - [facility] 6.1 (H) 03/09/2022 10:34 AM HEMOGLOBIN A1C - [facility] 6.0 (H) 03/02/2021 03:42 PM HEMOGLOBIN A1C - [facility] 5.9 (H) 02/19/2020 11:37 AM HEMOGLOBIN A1C - [facility] 6.0 (H) 09/27/2019 12:15 PM HEMOGLOBIN A1C - [facility] 6.2 (H) 04/09/2019 11:49 AM documented in this encounter Plan of Treatment Upcoming Encounters Date Type Specialty Care Team Description 12/13/2022 Office Visit Family Medicine Yanick Canseco, DO [address] [facility] [place] [address] 02/23/2023 Office Visit Dermatology Laure Arias PA-C [address] [place] [address] [place] [address] 02/27/2023 Office Visit Cardiology Bessy Gill PA-C [address] [place] [address] 03/15/2023 Office Visit Nephrology [facility] [address] [facility] [address] 03/17/2023 Office Visit Gastroenterology Patricia Mejia CRNP [address] [place] [address] Health Maintenance Due Date Last Done Comments CKD PHOS USE SMARTSET 95499 10/11/202209/16, 03/18/2021, 03/02/2021, Additional history exists Influenza Vaccine (FLU shot) (#1) 2022 02/03/2022, 03/02/2021, 01/28/2020, Additional history exists GFR 04/27/2023 10/25/2022, 05/19, 06/06/2022, Additional history exists HbA1c 09/06/2023 09/05/2022, 02/16, 03/02/2021, Additional history exists Albumin/Creatinine Ratio 09/07/2023 023, 09/21/2021, 09/10/2013, Additional history exists CKD HGB USE SMARTSET 69740 10/26/202310/25, 10/25/2022, 06/13/2022, Additional history exists TSH [...] medications documented in this encounter Care Teams Hot Knife Cutter Relationship Specialty Start Date End Date Yanick Canseco, DO [address] [facility] [place] [facility] [address] PCP - General Internal Medicine 04/07/22 documented as of this encounter
--- OUTSIDE RECORDS SUMMARY | 2023-03-04 16:31 | External Medical Summary | Summary of Care ---
Author Name Unknown Organization [facility] Address [address] [place] [address] Phone [phone] Care Team Providers Care General Internist And Physician Leader Name Role Phone Yanick Canseco DO Primary Care Provider [phone] Reason for Visit * Reason Onset Date Comments Advice 11/24/2022 Wants to know wh y he is in the donut hole Encounter Details Date Type Department Care Team Description 11/24/2022 Telephone Family Practice [facility] [address] [place] [address] Yanick Canseco DO [address] [place] [address] Advice (Wants to know why he is in the don... Allergies Active Allergy Reactions Severity Noted Date Comments Cat Dander 09/25/2014 Dog Dander 09/25/2014 Dust 09/23/2015 Pollen 09/25/2014 Losartan Other (Please comment) 03/02/2021 Hyperkalemia Morphine Nausea/vomiting Low 12/13/2017 Ragweed 09/25/2014 documented as of this encounter (statuses as of 11/24/2022) Medications Medication Sig Dispensed Refills Start Date [...] Tablet by mouth every evening. 0 Active [place]-3 Fatty Acids (ULTRA OMEGA 3) 952 MG CAPSIndications:D yslipidemia, goal LDL below 100 One tab twice daily 180 Cap 1 04/19/2018 Active Coenzyme Q10 300 MG Oral Wafer Take 600 mg by mouth once. 0 Active DHEA 50 MG Oral Tablet Take 50 mg by mouth daily. 0 Active Nitroglycerin 0.4 MG Sublingual Tablet Sublingual (Nitrostat)Indica tions:Atheroscler osis of [place] coronary artery of [place] heart without angina pectoris Place under the [...] MEAL/FOOD 90 Capsule 3 09/07/2022 4 Active Additional Information Patient not taking.Reported on 11/08/2022 Levothyroxine Sodium 150 MCG Oral Tablet (Levoxyl) TAKE ONE TABLET BY MOUTH EVERY MORNING AT LEAST 30 MINUTES PRIOR TO BREAKFAST OR OTHER MEDS 100 Tablet 1 05/30/2022 4 Active Atorvastatin Calcium 20 MG Oral Tablet (Lipitor) TAKE ONE TABLET BY MOUTH EVERY MORNING 100 Tablet 3 04/20/2022 4 Active Catheters by Ureteral route 7 times a day. Uses 14 Caude catheters, self cath's 7 times daily 0 10/24/2022 Active Polyethylene Glycol 3350 17 GM Oral Packet (MiraLax) Take 1 Packet by mouth in the morning. 0 Active Omeprazole 40 MG Oral Capsule Delayed Release (PriLOSEC)Indicat ions:History of esophageal cancer Take 1 Capsule by mouth in the morning. 100 Capsule 1 11/16/2022 Active Apixaban 2.5 MG Oral Tablet (Eliquis) Take 1 Tablet by mouth in the morning and 1 Tablet before bedtime. 60 Tablet 5 11/24/2022 Active Apixaban 2.5 MG Oral Tablet (Eliquis) Take 1 Tablet by mouth in the morning and 1 Tablet before bedtime. 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 Overview: Hastings's esophagus: egd by Dr Grant () f/u EGD 2001- per pt Cyst of kidney, acquired Overview: followed at [place] documented as of this encounter (statuses as of 11/24/2022) Resolved Problems Problem Noted Date Resolved Date [...] 03/22/2016 09/27/2019 Nonrheumatic aortic valve insufficiency 10/04/19 03/09/2022 Kidney disease, chronic, stage III (GFR 30-59 ml /min) 09/10/2013 04/19/2018 AAA (abdominal aortic aneurysm) 08/21/2012 06/06/2022 Overview: 3.4 by CTA 08/09/2012 [facility] [facility] Other*[id number] 201005/24/2016 Shortness of breath 02/22/2011 12/08/2016 Aortocoronary [...] as of this encounter (statuses as of 11/24/2022) Immunizations Name Administration Dates Next Due COVID-19 [...] (Prevnar) 12/11/2017,12/22/2015 Pneumococcal Polysaccharide PPV23 (Pneumovax) 12/06/2012,01/20/2006 Seasonal Influenza Virus Vac cine, Unspecified Formulation 12/21/2018,01/29/2018,01/18/2017,01/15,02/24/2016,01/06/2010,03/23/2009 ,03/05/2008,02/13/2007,01/20/2006,03/17,03/20/2003,04/03/2002, 1,03/22/2000 Seasonal Influenza, Quadriva lent Hd (Fluzone Hd) 03/02/2021 Seasonal Influenza, Quadriva lent, No Preserve, 6 Mons & Above, IM 01/29/2018 Seasonal Influenza, Quadriva lent, No Preserve, Adjuvanted, 65+ Yrs, IM 02/03/2022,01/28/2020 Seasonal Influenza, Quadriva lent, No Preserve, IM [...] Telephone Encounter - Gia Kline RPh - 11/24/2022 3:33 PM EDT Patient Phone Numbers Patient wanted to let me know that mail order said Nicole would be > $400 but it was onlt $97 at [facility], so he thinks [facility] is overcharging. I let him know that that quote was for a 100 ds vs. 30 ds and he may still have some spend left ahead of the donut hole. So next month it may be > $97 at [facility]. Gia Kline, Pharm D, BCACP Clinical Pharmacist [facility] 11/24/2022, 3:38 PM Ph. [phone] * Telephone Encounter - EMILY Tena - 11/24/2022 2:57 PM EDT Called back and wants to talk to Gia * Telephone Encounter - Gia Kline RPh - 11/24/2022 2:23 PM EDT Explained lakeisha quinn to patient. Patient reports that he's above income threshold for [facility] and for Eliquis patient assistance program. Advise that our two other options are for him to pay for Eliquismonth to month or to switch to warfarin. He states his son is a pharmacist and said not to do warfarin. He wants monthly script sent to [facility]. Advised patient to call back if he needs anything additional. Gia Kline, Pharm D, BCACP Clinical Pharmacist [facility] 11/24/2022, 2:34 PM Ph. [phone] * Telephone Encounter - EMILY Tena - 11/24/2022 1:39 PM EDT Would like to speak to Gia about marciaori quinn Please call documented in this encounter Plan of Treatment Upcoming Encounters Date Type Specialty Care Team Description 11/28/2022 Office Visit [facility]ology [facility] [address] [facility] [address] 12/06/2022 Cardiac Studies Cardiac Studies 12/13/2022 Office Visit Family Medicine Yanick Canseco, DO [address] [place] [address] 02/23/2023 Office Visit Dermatology Laure Arias PA-C [address] [place] [address] [place] [address] 02/27/2023 Office Visit Cardiology Bessy Gill PA-C [address] [place] [address] 03/15/2023 Office Visit Nephrology Ryan Issa MD [address] [place] [address] Health Maintenance Due Date Last Done Comments CKD PHOS USE SMARTSET 45809 10/11/202209/16, 03/18/2021, 03/02/2021, Additional history exists Influenza Vaccine (FLU shot) (#1) 2022 02/03/2022, 03/02/2021, 01/28/2020, Additional history exists GFR 04/27/2023 10/25/2022, 05/19, 06/06/2022, Additional history exists HbA1c 09/06/2023 09/05/2022, 02/16, 03/02/2021, Additional history exists Albumin/Creatinine Ratio 09/07/2023 023, 09/21/2021, 09/10/2013, Additional history exists CKD HGB USE SMARTSET 32043 10/26/202310/25, 10/25/2022, 06/13/2022, Additional history exists TSH [...] filedocumented as of this encounter Care Teams General Internist And Physician Leader Relationship Specialty Start Date End Date Yanick Canseco, [address] [place] [address] PCP - General Internal Medicine 04/07/22 documented as of this encounter
--- OUTSIDE RECORDS SUMMARY | 2023-03-04 16:31 | External Medical Summary | Summary of Care ---
Author Name Unknown Organization [facility] Address [address] [place] [address] Phone [phone] Care Team Providers Care Sole Edge Inker Machine Name Role Phone Yanick Canseco DO Primary Care Provider [phone] Reason for Visit * Reason Onset Date Comments Medication Refill 12/22/2022 Encounter Details Date Type Department Care Team Description 12/22/2022 Telephone Family Practice 65 [facility] [address] [place] [address] Yanick Canseco DO [address] [place] [address] Medication Refill Allergies Active Allergy Reactions Severity Noted Date Comments Cat Dander 09/25/2014 Dog Dander 09/25/2014 Dust 09/23/2015 Pollen 09/25/2014 Losartan Other (Please comment) 03/02/2021 Hyperkalemia Morphine Nausea/vomiting Low 12/13/2017 Ragweed 09/25/2014 documented as of this encounter (statuses as of 12/22/2022) Medications Medication Sig Dispensed Refills Start Date [...] Tablet by mouth every evening. 0 Active [place]-3 Fatty Acids (ULTRA OMEGA 3) 952 MG CAPSIndications:Dy slipidemia, goal LDL below 100 One tab twice daily 180 Cap 1 04/19/2018 Active Coenzyme Q10 100 MG Oral Tablet Take 1 Tablet by mouth once. 0 Active DHEA 50 MG Oral Tablet Take 50 mg by mouth daily. 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 Overview: Hastings's esophagus: egd by Dr Grant () f/u EGD 2001- neg per pt Cyst of kidney, acquired Overview: followed at [place] documented as of this encounter (statuses as of 12/22/2022) Resolved Problems Problem Noted Date Resolved Date [...] 3.4 by CTA 08/09/2012 [facility] [facility] Other*[id number] 201005/24/2016 Shortness of breath 02/22/2011 12/08/2016 Aortocoronary [...] as of this encounter (statuses as of 12/22/2022) Immunizations Name Administration Dates Next Due COVID-19 [...] Telephone Encounter - Gia Kline RPh - 12/22/2022 5:04 PM EDT Short supply sent to [facility] per protocol. Called and let patient know. Carvediolol was shipped from [place] on 12/20 and should be arriving shortly. Gia Kline, Pharm D, BCACP Clinical Pharmacist [facility] 12/22/2022, 5:05 PM Ph. [phone] * Telephone Encounter - EMILY Perez - 12/22/2022 4:46 PM EDT Pt left voicemail asking for Gia to send a short supply of Carvedilol as he only has enough left for tonight. He can be reached at [phone] He is asking for 12.5 mg documented in this encounter Plan of Treatment Upcoming Encounters Date Type Specialty Care Team Description 12/26/2022 Imaging Radiology 12/28/2022 Office Visit Family Medicine Yanick Canseco, DO [address] [facility] [address] 02/23/2023 Office Visit Dermatology Laure Arias PA-C [address] [place] [address] [place] [address] 02/27/2023 Office Visit Cardiology Bessy Gill PA-C [address] [place] [address] 03/15/2023 Office Visit Family Medicine [facility]seco, [address] [place] [facility] [address] 03/15/2023 Office Visit Nephrology [facility] [address] [facility] [address] 03/17/2023 Office Visit Gastroenterology Patricia Mejia CRNP [address] [place] [address] Health Maintenance Due Date Last Done Comments Influenza Vaccine (FLU shot) (#1) 2022 02/03/2022, 03/02/2021, 01/28/2020, Additional history exists GFR 04/27/2023 10/25/2022, 05/19, 06/06/2022, Additional history exists Albumin/Creatinine Ratio 09/07/2023 023, 09/21/2021, 09/10/2013, Additional history exists CKD HGB USE SMARTSET 86434 10/26/202310/25, 10/25/2022, 06/13/2022, Additional history exists TSH 10/26/2023 10/25/2022, 08/16, 05/27/2022, Additional history exists CKD PHOS USE SMARTSET 73967 12/14/202311/16, 10/11/2021, 03/18/2021, Additional history exists Depression [...] filedocumented as of this encounter Care Teams Sole Edge Inker Machine Relationship Specialty Start Date End Date Yanick Canseco, [address] [place] [address] PCP - General Internal Medicine 04/07/22 documented as of this encounter
--- OUTSIDE RECORDS SUMMARY | 2023-03-04 16:31 | External Medical Summary | Summary of Care ---
Author Name Unknown Organization [facility] Address [address] [facility] [place] [address] Phone [phone] Care Team Providers Care Editor Map Name Role Phone Yanick Canseco DO Primary Care Provider [phone] Reason for Visit * Reason Onset Date Comments Advice 12/26/2022 Encounter Details Date Type Department Care Team Description 12/26/2022 Telephone Cardiology, [facility] [address] [place] [address] Erwin Weiner MD [address] [place] [id number] Advice Allergies Active Allergy Reactions Severity Noted [...] Tablet by mouth every evening. 0 Active [place]-3 Fatty Acids (ULTRA OMEGA 3) 952 MG CAPSIndications:Dy slipidemia, goal LDL below 100 One tab twice daily 180 Cap 1 04/19/2018 Active Coenzyme Q10 100 MG Oral Tablet Take 1 Tablet by mouth once. 0 Active DHEA 50 MG Oral Tablet Take 50 mg by mouth daily. 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 Overview: Hastings's esophagus: egd by Dr Grant () f/u EGD 2001- neg per pt Cyst of kidney, acquired Overview: followed at [place] documented as of this encounter (statuses as [...] 3.4 by CTA 08/09/2012 [employer] Other*[id number] 201005/24/2016 Shortness of breath 02/22/2011 12/08/2016 Aortocoronary [...] 12/28/2022 Office Visit Family Medicine Yanick Canseco, [address] [place] [address] 02/23/2023 Office Visit Dermatology Laure Arias PA-C [address] [place] [address] [place] [address] 02/27/2023 Office Visit Cardiology Bessy Gill PA-C [address] [place] [address] 03/15/2023 Office Visit Family Medicine Yanick Canseco DO [address] [place] [address] 03/15/2023 Office Visit Nephrology Ryan Issa MD [address] [facility] [place] [address] 03/17/2023 Office Visit Gastroenterology Patricia Mejia CRNP [address] [place] [address] Health Maintenance Due Date Last Done Comments Influenza Vaccine (FLU shot) (#1) 2022 02/03/2022, 03/02/2021, 01/28/2020, Additional history exists GFR 04/27/2023 10/25/2022, 05/19, 06/06/2022, Additional history exists Albumin/Creatinine Ratio 09/07/2023 023, 09/21/2021, 09/10/2013, Additional history exists CKD HGB USE SMARTSET 31888 10/26/202310/25, 10/25/2022, 06/13/2022, Additional history exists TSH 10/26/2023 10/25/2022, 08/16, 05/27/2022, Additional history exists CKD PHOS USE SMARTSET 68707 12/14/202311/16, 10/11/2021, 03/18/2021, Additional history exists Depression [...] filedocumented as of this encounter Care Teams Editor Map Relationship Specialty Start Date End Date Yanick Canseco, [address] [place] [address] PCP - General Internal Medicine 04/07/22 documented as of this encounter
--- OUTSIDE RECORDS SUMMARY | 2023-03-04 16:31 | External Medical Summary | Summary of Care ---
Author Name Unknown Organization [facility] Address [address] [place] [address] Phone [phone] Care Team Providers Care Synthetic Chemist Name Role Phone Yanick Canseco DO Primary Care Provider [phone] Reason for Visit * Reason Comments Follow Up Encounter Details Date Type Department Care Team Description 12/13/2022 Office Visit Family Practice [facility] [address] [place] [address] Yanick Canseco DO [address] [place] [address] Paroxysmal atrial fibrillation (HCC)*; Atherosclerosis of [place] coronary artery of [place] heart without angina pectoris; Colbert's esophagus with high grade dysplasia; BPH without obstruction/lower urinary tract symptoms; Gouty arthropathy; Disc disorder of lumbar region; Hypertensive kidney disease with stage 3b chronic kidney disease (HCC); Moderate to severe aortic insufficiency; Infrarenal abdominal 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 (HCC); Hypothyroidism due to acquired atrophy of thyroid; Prediabetes; Neurogenic bladder; Dyslipidemia, goal LDL below 70; Asymptomatic bilateral carotid artery stenosis Allergies Active Allergy Reactions Severity Noted Date Comments Cat Dander 09/25/2014 Dog Dander 09/25/2014 Dust 09/23/2015 Pollen 09/25/2014 Losartan Other (Please comment) 03/02/2021 Hyperkalemia Morphine Nausea/vomiting Low 12/13/2017 Ragweed 09/25/2014 documented as of this encounter (statuses as of 12/13/2022) Medications Medication Sig Dispensed Refills Start Date [...] Tablet by mouth every evening. 0 Active Kingston-3 Fatty Acids (ULTRA OMEGA 3) 952 MG CAPSIndications:D yslipidemia, goal LDL below 100 One tab twice daily 180 Cap 1 9 Active Coenzyme Q10 100 MG Oral Tablet Take 1 Tablet by mouth once. 0 Active DHEA 50 MG Oral Tablet Take 50 mg by mouth daily. 0 Active Nitroglycerin 0.4 MG Sublingual Tablet Sublingual (Nitrostat)Indica tions:Atheroscler osis of [place] coronary artery of [place] heart [...] 3 Active Allopurinol 100 MG Oral Tablet (Zyloprim)Indicat [...] cath's 7 times daily 0 3 Active Polyethylene Glycol 3350 17 GM Oral Packet Take 1 Packet by mouth in the morning. 0 Active Omeprazole 40 MG Oral Capsule Delayed Release (PriLOSEC)Indicat ions:History of esophageal cancer Take 1 Capsule by mouth in the morning. 100 Capsule 1 3 Active Apixaban 2.5 MG Oral Tablet (Eliquis) Take 1 Tablet by mouth in the morning and 1 Tablet before bedtime. 60 Tablet 5 3 Active Levothyroxine Sodium 150 MCG Oral Tablet (Levoxyl) TAKE ONE TABLET BY MOUTH EVERY MORNING AT LEAST 30 MINUTES PRIOR TO BREAKFAST OR OTHER MEDS 100 Tablet 1 3 Active Carvedilol 12.5 MG Oral Tablet (Coreg)Indication s:Atrial fibrillation with RVR (HCC) TAKE TWO TABLETS BY MOUTH EVERY DAY IN THE MORNING AND TAKE ONE TABLET BY MOUTH EVERY DAY IN THE EVENING 300 Tablet 1 3 Active guaiFENesin ER 600 MG Oral Tablet Extended Release 12 Hour Take 1 Tablet by mouth 2 times a day as needed for Congestion. 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 Overview: Colbert's esophagus: egd by Dr Grant () f/u EGD 2001- per pt Cyst of kidney, acquired Overview: followed at [place] documented as of this encounter (statuses as of 12/13/2022) Resolved Problems Problem Noted Date Resolved Date [...] 3.4 by CTA 08/09/2012 [facility] [facility] Other*[id number] 201005/24/2016 Shortness of breath 02/22/2011 12/08/2016 Aortocoronary [...] as of this encounter (statuses as of 12/13/2022) Immunizations Name Administration Dates Next Due COVID-19 [...] Sign Reading Time Taken Comments Blood Pressure 140/72 12/13/2022 10:12 AM EDT Pulse 80 12/13/2022 10:12 AM EDT Temperature 36.2 C (97.2 F) 12/13/2022 10:12 AM E DT Respiratory Rate 16 12/13/2022 10:12 AM EDT Oxygen Saturation 80% 12/13/2022 10:12 AM EDT Inhaled Oxygen Concentration - - Weight 84.9 kg (187 lb 1.6 oz) 12/13/2022 10:12 AM EDT Height 181 cm (5' 11.25") 12/13/2022 10:12 AM ED T Body Mass Index 25.91 12/13/2022 10:12 AM EDT documented in this encounter Progress Notes * Yanick Canseco, - 12/13/2022 10:59 AM EDT SUBJECTIVE: Hubert Persaud is a 82 year old male. Chief Complaint Patient presents with Follow Up HPI: Patient is an 82 year old male with a history of atrial fibrillation, CABG, severe aortic valve insufficiency, sleep apnea, hypothyroidism, left calcified renal cyst, esophagectomy to treat Colbert'swith high grade dysplasia, bilateral 50-69 % ICA stenosis, AAA, lumbar disc disease, gout, insomnia, BPH, osteomyelitis of the spine, and sacral neurotransmitter implant to treat neurogenic bladder that is seen for follow up. No chest pain or shortness of breath are present. Weight is stable and appetite is good. He continues to straight cath multiple times a day. Follow up is scheduled at [facility] due to aortic valve insufficiency. Patient Active Problem List Diagnosis Code Other allergic rhinitis J30.89 Colbert's esophagus with high grade dysplasia K22.711 Cyst of kidney, acquired N28.1 BPH without obstruction/lower urinary tract symptoms N40.0 History of coronary artery bypass graft Z95.1 Coronary atherosclerosis of [place] coronary artery I25.10 Gouty arthropathy M10.9 Disc [...] Infrarenal abdominal 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 ([facility]) I71.43 Current Outpatient Medications Medication Sig Dispense Refill [...] Take 1 Tablet by mouth every evening. Kingston-3 Fatty Acids (ULTRA OMEGA 3) 952 MG [...] DAY IN THE EVENING 300 Tablet 1 Nitrofurantoin Macrocrystal 50 MG Oral Capsule (Macrodantin) TAKE ONE CAPSULE BY MOUTH EVERY DAY WITH MEAL/FOOD 90 Capsule 3 Catheters by Ureteral route 7 times a day. Uses 14 Caude catheters, self cath's 7 times daily Polyethylene Glycol 3350 17 GM Oral Packet Take 1 Packet by mouth in the morning. No current facility-administered medications for this visit. The patient's medication list was reviewed and updated as needed. Past Medical History: Diagnosis Date Abdominal aortic aneurysm (HCC) 02/20/2009 Aortocoronary bypass status 10/15/2007 Atrial fibrillation (HCC) 02/16/2010 Chronic coronary artery disease 09/22 CABGx4 GIFFORD to LAD, SVG to ramus, SVG to OM, SVG to RCA DISC DIS [id number] 02/20/2009 Dyslipidemia, goal LDL below 100 03/30/2009 Per Lipid Taxonomy. Gouty arthropathy History of esophageal cancer Colbert's esophagus: egd by Dr Grant () f/u EGD 2001- neg per pt HTN, goal to be determined HYPERTROP PROSTATE W/O URIN OB 09/08/2005 Hypothyroidism Kidney disease, chronic, stage III (GFR 30-59 ml/min) ([facility]) 09/10/2013 MAL TIKI ESOPHAGUS NOS Colbert's esophagus: egd by Dr Grant () f/u EGD 2002- neg per pt Moderate to severe aortic insufficiency 03/02/2021 Neurogenic bladder 14 Fr straight tip self cath 6-7 times per day Past Surgical History: Procedure Laterality Date BYPASS GRAFT ANGIOGRAPHY W/LEFT HEART CATH 03/08/2011 BYPASS GRAFT ANGIOGRAPHY W/LEFT HEART CATH performed by RACHEL JACOB at [facility] CABG, ARTERIAL, FOUR OR MORE 09/21/2007 four vessel CAGB CARPAL TUNNEL SURGERY Right 03/2017 COLONOSCOPY 04/2006 CYSTOSCOPY 10/09/2017 done [address] office [address] Chavez EGD, FLEXIBLE, DIAGNOSTIC 03/22/2012 UPPER GI ENDOSCOPY DIAGNOSTIC performed by Odalys Cárdenas MD at [facility] EGD, FLEXIBLE, DIAGNOSTIC 03/23/2012 UPPER GI ENDOSCOPY DIAGNOSTIC performed by Odalys Cárdenas MD at ENDOSCOPY [facility] BX negative for Colbert's- repeat in 2 years EGD, FLEXIBLE, DIAGNOSTIC N/A 04/29/2014 Unremarkable post esophagectomy anatomy, without evidence of colbert's. repeat in 3 yrs/ESOPHAGOGASTRODUODENOSCOPY (EGD), FLEXIBLE, TRANSORAL, DIAGNOSTIC performed by Odalys Cárdenas MD at ENDOSCOPY [facility] EGD, FLEXIBLE, DIAGNOSTIC N/A 03/17/2016 normal bx/ESOPHAGOGASTRODUODENOSCOPY (EGD), FLEXIBLE, TRANSORAL, DIAGNOSTIC performed by Babatunde Carr MD at ENDOSCOPY [facility] EGD, FLEXIBLE, DIAGNOSTIC N/A 11/19/2019 small amount of retained bilious fluid of stomach, moderate edema and erythema of mucosa in stomach/retained food in stomach/biopsies normal/EGD/[facility] EGD, FLEXIBLE, W/BIOPSY 08/21/2007 No sx of Colbert's EGD, FLEXIBLE, W/BIOPSY 12/01/2009 done anastamosis and GE junction @ 20cm bx done--no eidence of Barretts IMPLANT MESH W/ ABD HERNIA REPR/DEBRIDE 12/2006 IMPLANT NEUROELECTRODES, SACRAL N/A 09/21/2022 INFORMATION 2001 Other Ventral hernia repair R lower abdomen NONE 2002 colonoscopy at [facility]. OTHER 10/27/2005 excision of skin lesion [...] change, fatigue and unexpected weight change. Respiratory: Negative for cough, shortness of breath and wheezing. Cardiovascular: Negative for chest pain, palpitations and leg swelling. Gastrointestinal: Negative for abdominal pain, blood in stool, constipation, diarrhea, nausea and vomiting. Genitourinary: Negative for dysuria and hematuria. Neurological: Negative for dizziness, syncope and headaches. Psychiatric/Behavioral: Negative for confusion, decreased concentration and sleep disturbance. OBJECTIVE: BP 140/72 | Pulse 80 | Temp 36.2 C (97.2 F) | Resp 16 | Ht 1.81 m (5' 11.25") | Wt 84.9 kg (187lb 1.6 oz) | SpO2 80% | BMI 25.91 kg/m | BSA 2.07 m Physical Exam Vitals and nursing note reviewed. Constitutional: General: He is not in acute distress. Appearance: Normal appearance. He is not toxic-appearing. HENT: Head: Normocephalic and atraumatic. Cardiovascular: Rate and Rhythm: Normal rate. Rhythm irregular. Heart sounds: Normal heart sounds. No murmur [...] Behavior normal. Thought Content: Thought content normal. Component Latest Ref Rng 09/05/2022 10/25/2022 BUN 6 - 20 mg/dL 21 (H) Creatinine 0.6 - 1.2 mg/dL 1.3 (H) Estimated Glomerular Filtration Rate >=60 mL/min 57 (L) Sodium 135 - 146 mmol/L 137 Potassium 3.5 - 5.1 mmol/L 4.6 Chloride 98 - 107 mmol/L 104 CO2 22 - 32 mmol/L 24 Anion Gap 7 - 15 mmol/L 9 Glucose 70 - 120 mg/dL 111 Albumin 3.8 - 5.0 g/dL 3.8 AST 10 - 50 U/L 19 Alkaline Phosphatase 35 - 130 U/L 52 Bilirubin, Total <=1.2 mg/dL 0.5 Calcium 8.4 - 10.2 mg/dL 9.7 Protein 6.0 - 8.3 g/dL 6.2 ALT 10 - 50 U/L 13 WBC 4.00 - 10.80 K/uL 6.77 Neutrophils % 40.0 - 75.0 % 58.6 Lymphocytes % 18.0 - 42.0 % 26.3 Monocytes % 1.0 - 11.0 % 9.7 Eosinophils % 0.0 - 6.0 % 3.1 Basophils % 0.0 - 2.0 % 1.9 Immature Granulocytes % 0.0 - 2.0 % 0.4 Absolute Neutrophils 1.80 - 7.70 K/uL 3.96 Absolute Lymphocytes 1.00 - 4.80 K/ul 1.78 Absolute Monocytes 0.00 - 1.10 K/uL 0.66 Absolute Eosinophils 0.00 - 0.70 K/uL 0.21 Absolute Basophils 0.00 - 0.20 K/uL 0.13 Absolute Immature Granulocytes 0.00 - 0.20 K/uL 0.03 WBC 4.00 - 10.80 K/uL 6.77 RBC 4.50 - 5.25 M/uL 4.38 HGB 14.0 - 16.8 g/dL 15.0 HCT 40.0 - 48.4 % 45.9 MCV 82.0 - 99.5 fL 104.8 MCH 27.0 - 34.0 pg 34.2 MCHC 32.0 - 36.0 g/dL 32.7 RDW 11.5 - 15.5 % 12.8 PLT 140 - 400 K/uL 236 MPV 6.6 - 11.1 fL 13.1 nRBCs <=0 /100 WBCs 0 Triglycerides <=174 mg/dL 90 Cholesterol <200 mg/dL 99 HDL Cholesterol >39 mg/dL 55 Non-HDL Cholesterol <=159 mg/dL 44 LDL Cholesterol <=129 mg/dL 26 TSH 0.27 - 4.20 uIU/mL 1.39 Lipase 13 - 60 U/L 27 (H) High (L) Low PLAN AND ASSESSMENT: Paroxysmal atrial fibrillation (HCC) (Primary) Continue Carvedilol, and Apixaban Atherosclerosis of [place] coronary artery of [place] heart without angina pectoris Continue Carvedilol Colbert's esophagus with high grade dysplasia Treated with Esophagectomy Recent EGD without pathology BPH without obstruction/lower urinary tract symptoms Gouty arthropathy Continue Allopurinol Disc disorder of lumbar region Hypertensive kidney disease with stage 3b chronic kidney disease (HCC) - PHOSPHORUS; Future; Expected date: 12/13/2022 - PHOSPHORUS Continue Carvedilol Moderate to severe aortic insufficiency Patient scheduled for follow up at [facility] Infrarenal abdominal 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 (HCC) Hypothyroidism due to acquired atrophy of thyroid Continue Levothyroxine Prediabetes - HEMOGLOBIN A1C; Future; Expected date: 12/13/2022 - HEMOGLOBIN A1C Neurogenic bladder Continue to straight cath Dyslipidemia, goal LDL below 70 Continue Atorvastatin Asymptomatic bilateral carotid artery stenosis - VASC DUPLEX CAROTID BILAT Follow-up: Return in about 3 months (around 03/15/2023), or if symptoms worsen or fail to improve. | Check-out note: Schedule carotid doppler Yanick Canseco DO 10:59 AM 12/13/2022 documented in this encounter Nursing Notes * Argenis Sauer LPN - 12/13/2022 10:09 AM EDT Here for follow up, fatigue continues. documented in this encounter Plan of Treatment Upcoming Encounters Date Type Specialty Care Team Description 12/26/2022 Imaging Radiology 02/23/2023 Office Visit Dermatology Laure Arias PA-C [address] [place] [address] [place] [id number] 02/27/2023 Office Visit Cardiology Bessy Gill PA-C [address] [place] [address] 03/15/2023 Office Visit Family Medicine Yanick Canseco DO [address] [place] [address] 03/15/2023 Office Visit Nephrology Ryan Issa MD [address] [place] [address] 03/17/2023 Office Visit Gastroenterology Patricia Mejia, KIKA [address] [place] [id number] Pending Results Name Type Priority Associated Diagnoses Date /Time PHOSPHORUS Lab Routine Hypertensive kidney disease with stage 3b chronic kidney disease (HCC) 12/13/2022 10:53 AM EDT HEMOGLOBIN A1C Lab Routine Prediabetes 12/13/2022 10:53 AM EDT Scheduled Orders Name Type Priority Associated Diagnoses Orde r Schedule PHOSPHORUS Lab Routine Hypertensive kidney disease with stage 3b chronic kidney disease (HCC) Expected: 12/13/2022, Expires: 12/14/2023 VASC DUPLEX CAROTID BILAT Medical Imaging Routine Asymptomatic bilateral carotid artery stenosis Ordered: 12/13/2022 HEMOGLOBIN A1C Lab Routine Prediabetes Expected: 12/13/2022 (Approximate), Expires: 12/13/2023 Health Maintenance Due Date Last Done Comments CKD PHOS USE SMARTSET 60339 10/11/202209/16, 03/18/2021, 03/02/2021, Additional history exists Influenza Vaccine (FLU shot) (#1) 2022 02/03/2022, 03/02/2021, 01/28/2020, Additional history exists GFR 04/27/2023 10/25/2022, 05/19, 06/06/2022, Additional history exists HbA1c 09/06/2023 09/05/2022, 02/16, 03/02/2021, Additional history exists Albumin/Creatinine Ratio 09/07/2023 023, 09/21/2021, 09/10/2013, Additional history exists CKD HGB USE SMARTSET 35849 10/26/202310/25, 10/25/2022, 06/13/2022, Additional history exists TSH [...] as of this encounter Visit Diagnoses Diagnosis Paroxysmal atrial fibrillation (HCC)- Primary Atrial fibrillation Atherosclerosis of [place] coronary artery of [place] heart without angina pectoris Colbert's esophagus with high grade dysplasia Colbert's esophagus BPH without obstruction/lower urinary tract symptoms Hypertrophy of prostate without urinary obstruction and other lower urinary tract symptoms (LUTS) Gouty arthropathy Gouty arthropathy, unspecified Disc disorder of lumbar region Other and unspecified disc disorder of lumbar region Hypertensive kidney disease with stage 3b chronic kidney disease (HCC) Moderate to severe aortic insufficiency Infrarenal abdominal 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 (HCC) Hypothyroidism due to acquired atrophy of thyroid Prediabetes Other abnormal glucose Neurogenic bladder Neurogenic bladder, NOS Dyslipidemia, goal LDL below 70 Other and unspecified hyperlipidemia Asymptomatic bilateral carotid artery stenosis Occlusion and stenosis of multiple and bilateral precerebral arteries without mention of cerebral infarction documented in this encounter Care Teams Synthetic Chemist Relationship Specialty Start Date End Date Yanick Canseco, [address] [place] [address] PCP - General Internal Medicine 04/07/22 documented as of this encounter
--- OUTSIDE RECORDS SUMMARY | 2023-03-04 16:31 | External Medical Summary | Summary of Care ---
Author Name Unknown Organization [facility] Address [address] [facility] [address] Phone [phone] Care Team Providers Care Veterinary Virologist Name Role Phone Yanick Canseco DO Primary Care Provider [phone] Reason for Visit * Reason Comments Follow Up 6 month follow up, d iarrhea, nausea, vomiting, hx of dysphagia, hx of barretts, hx of esophageal cancer. Encounter Details Date Type Department Care Team Description 11/28/2022 Office Visit Gastroenterology, [facility] [address] [place] [address] Patricia Mejia CRNP [address] [place] [address] Diarrhea, unspecified type* Allergies Active Allergy Reactions Severity Noted Date Comments Cat Dander 09/25/2014 Dog Dander 09/25/2014 Dust 09/23/2015 Pollen 09/25/2014 Losartan Other (Please comment) 03/02/2021 Hyperkalemia Morphine Nausea/vomiting Low 12/13/2017 Ragweed 09/25/2014 documented as of this encounter (statuses as of 11/28/2022) Medications Medication Sig Dispensed Refills Start Date [...] Tablet by mouth every evening. 0 Active [place]-3 Fatty Acids (ULTRA OMEGA 3) 952 MG CAPSIndications:Dy slipidemia, goal LDL below 100 One tab twice daily 180 Cap 1 04/19/2018 Active Coenzyme Q10 300 MG Oral Wafer Take 600 mg by mouth once. 0 Active DHEA 50 MG Oral Tablet Take 50 mg by mouth daily. 0 Active Nitroglycerin 0.4 MG Sublingual Tablet Sublingual (Nitrostat)Indicat ions:Atheroscleros is of [place] coronary artery of [place] heart without angina pectoris Place under the [...] MEAL/FOOD 90 Capsule 3 09/07/2022 4 Active Levothyroxine Sodium 150 MCG Oral Tablet [...] before bedtime. 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 Overview: Colbert's esophagus: egd by Dr Grant () f/u EGD 2001- neg per pt Cyst of kidney, acquired Overview: followed at [place] documented as of this encounter (statuses as of 11/28/2022) Resolved Problems Problem Noted Date Resolved Date [...] 3.4 by CTA 08/09/2012 [employer] Other*[id number] 201005/24/2016 Shortness of breath 02/22/2011 12/08/2016 Aortocoronary [...] as of this encounter (statuses as of 11/28/2022) Immunizations Name Administration Dates Next Due COVID-19 mRNA, LNP-s, No Pre serve, 2-Dose Series (Moderna) 06/10/2020,05/13/2020 COVID-19, LNP-s, No Preserve , Adiel-sucrose, Ages 12+ (Pfizer) 12/06/2021 Covid-19 Mrna, Lnp-s, No Pre serve, Booster (Moderna) 02/24/2021 Covid-19, Mrna, Lnp-s, Pf, B ivalent, 30 Mcg, IM, 12 yrs and above (Mapidy) 04/19/2022 HEP A - Hepatitis A (Adult [...] Sign Reading Time Taken Comments Blood Pressure 128/61 11/28/2022 9:56 AM EDT Pulse 83 11/28/2022 9:56 AM EDT Temperature 36.6 C (97.8 F) 11/28/2022 9:56 AM ED T Respiratory Rate - - Oxygen Saturation 96% 11/28/2022 9:56 AM EDT Inhaled Oxygen Concentration - - Weight 83.2 kg (183 lb 8 oz) 11/28/2022 9:56 AM EDT Height - - Body Mass Index 25.41 11/08/2022 3:08 PM EDT documented in this encounter Progress Notes * Nubia Wyatt LPN - 11/28/2022 10:01 AM EDT Patient identified by name and date of . Chief Complaint Patient presents with Follow Up 6 month follow up, diarrhea, nausea, vomiting, hx of dysphagia, hx of barretts, hx of esophageal cancer. Pt had scope done at [facility] on 10/27/2022- per pt no issues at this time. Did have some issues with constipation * KIKA Garcia - 11/28/2022 10:00 AM EDT DATE OF SERVICE: 11/28/2022 REFERRING PHYSICIAN: Yanick Canseco DO CC: Follow up Office Visit 11/28/2022 : Feeling well. No abd pain. No nausea, vomiting. No GERD. On PPI. No dysphagia. Was having some bowel issues - constipation. Had KUB showed constipation. Is now on Miralax PRNand Questran. Stools are regular now. No Last BM was yesterday. Formed. No black or bloody stools. Latest Reference Range & Units 10/25/22 14:42 WBC 4.00 - 10.80 K/uL 6.77 HGB 14.0 - 16.8 g/dL 15.0 HCT 40.0 - 48.4 % 45.9 MCV 82.0 - 99.5 fL 104.8 PLT 140 - 400 K/uL 236 KUB 2022: Constipation. EGD 2022: - An esophago-gastric anastomosis was found. No stenosis. Healthy apperance. - Normal esophagus. - Normal stomach. - Normal duodenal bulb, second portion of the duodenum, third portion of the duodenum and fourth portion of the duodenum. - No specimens collected EGD 2019:There was an unremarkable esophagogastric anastamosis at 20 cm. There was no evidence ofrecurrent Colbert's. Biopsies taken from GE junction. There was a small amount of retained bilious fluid in the stomach. There was moderate edema and erythema of the mucosa in the stomach. Biopsies taken from the stomach. There was retained food in the second portion of the duodenum. The remainder of the duodenum was normal. There was no obstruction noted in the third or fourth portion of the duodenum. Biopsies taken from duodenum. EGD 2015:An esophago-gastric anastomosis was found, characterized by healthy appearing mucosa. Biopsied. - Normal stomach. - Normal examined duodenum. EGD 2014:Unremarkable post esophagectomy anatomy, without evidence of Colbert's. EGD 2011:The stomach mucosa was entirely normal. There was a small amount of retained fluid in the stomach. There was a very large diverticulum in the second portion of the duodenum. The duodenum was otherwise unremarkable. Biopsies done from anastamosis. EGD 2011:The esophagogastric anastamosis was at 20 cm. The Z line was mildly irregular; appearance was similar to prior exam. The anastamosis was otherwise unremarkable. Biopsies of anastamosis done. The stomach mucosa appeared grossly normal. There was a moderate amount of vegetable debris in the stomach, and the procedure was aborted EGD 2009:The Z line was at 20 cm and was biopsied. There was an esophago gastric anastamosis at 20 cm. There was bile coating the stomach. The small intestine was biopsied. EGD 2007:Widely patent esophago-gastric anastamosis at 20 cm without evidence of Colbert's. The stomach was normal, and duodenum was normal Colonoscopy 2006:The perianal and digital rectal examinations were normal. Solid stool was seen in the ascending colon. This was lavaged and suctioned. The mucosa of the colon appeared entirely normal. Family history of GI malignancy:none Past Medical History: Diagnosis Date Abdominal aortic aneurysm (HCC) 02/20/2009 Aortocoronary bypass status 10/15/2007 Atrial fibrillation ([facility]) 02/16/2010 Chronic coronary artery disease 09/22 CABGx4 GIFFORD to LAD, SVG to ramus, SVG to OM, SVG to RCA DISC DIS [id number] 02/20/2009 Dyslipidemia, goal LDL below 100 03/30/2009 [...] tip self cath 6-7 times per day Family History Problem Relation Age of Onset Cancer Grandfather (Maternal) Cancer of Liver Diabetes Father Stroke Mother Stroke Father Other (Other) Father Hemachromatosis Past Surgical History: Procedure Laterality Date BYPASS GRAFT ANGIOGRAPHY W/LEFT HEART CATH 03/08/2011 BYPASS GRAFT ANGIOGRAPHY W/LEFT HEART CATH performed by RACHEL JACOB at [facility] CABG, ARTERIAL, FOUR OR MORE 09/21/2007 four vessel CAGB CARPAL TUNNEL SURGERY Right 03/2017 COLONOSCOPY 04/2006 CYSTOSCOPY 10/09/2017 done in office by Dr Scott [place], FLEXIBLE, DIAGNOSTIC 03/22/2012 UPPER GI ENDOSCOPY DIAGNOSTIC performed by Odalys Cárdenas MD at ENDOSCOPY [facility] EGD, FLEXIBLE, DIAGNOSTIC 03/23/2012 UPPER GI ENDOSCOPY DIAGNOSTIC performed by Odalys Cárdenas MD at [facility]OSCOPY [facility] BX negative for Colbert's- repeat in 2 years EGD, FLEXIBLE, DIAGNOSTIC N/A 04/29/2014 Unremarkable post esophagectomy anatomy, without evidence of colbert's. repeat in 3 yrs/ESOPHAGOGASTRODUODENOSCOPY (EGD), FLEXIBLE, TRANSORAL, DIAGNOSTIC performed by Odalys Cárdenas MD at ENDOSCOPY [facility] EGD, FLEXIBLE, DIAGNOSTIC N/A 03/17/2016 normal bx/ESOPHAGOGASTRODUODENOSCOPY (EGD), FLEXIBLE, TRANSORAL, DIAGNOSTIC performed by Babatunde Carr MD at ENDOSCOPY [facility] [address] EGD, FLEXIBLE, DIAGNOSTIC N/A 11/19/2019 small amount of retained bilious fluid of stomach, moderate edema and erythema of mucosa in stomach/retained food in stomach/biopsies normal/EGD/[facility] EGD, FLEXIBLE, W/BIOPSY 08/21/2007 No sx of Colbert's EGD, FLEXIBLE, W/BIOPSY 12/01/2009 done anastamosis and GE junction @ 20cm bx done--no eidence of Barretts IMPLANT MESH W/ ABD HERNIA REPR/DEBRIDE 12/2006 IMPLANT NEUROELECTRODES, SACRAL N/A 09/21/2022 INFORMATION 2002 Other Ventral hernia repair R lower abdomen NONE 2002 colonoscopy at [facility]. OTHER 10/27/2005 excision of skin lesion from mid back (benign) Dr. Tang OTHER 07/2005 Esophagectomy removed 6" of esophagus REMOVAL OF PROSTATE, FIRST STAGE 1999 TURP REMOVE CATARACT, INSERT LENS PROSTH Right 10/08/2019 REMOVE CATARACT, INSERT LENS PROSTH Left 10/22/2019 Social History Tobacco Use Smoking status: Former Packs/day: 1.00 Years: 20.00 Pack years: 20.00 Types: Cigarettes Quit date: 04/17/1982 Years since quittin.6 Passive exposure: Past Smokeless tobacco: Never Tobacco comments: no passive smoke Vaping Use Vaping Use: Never used Substance Use Topics Alcohol use: Not Currently Comment: rarely Drug use: No Review of patient's allergies indicates: Allergen Reactions [...] Take 1 Tablet by mouth every evening. [place]-3 Fatty Acids (ULTRA OMEGA 3) 952 MG CAPS One tab twice daily 180 Cap 1 Coenzyme Q10 300 MG Oral Wafer Take 600 mg by mouth once. DHEA 50 MG Oral Tablet Take 50 mg by mouth daily. Nitroglycerin 0.4 MG Sublingual Tablet Sublingual (Nitrostat) Place under the tongue 1 Tablet every 5 minutes as needed for Pain, Chest. Maximum 3 doses. 25 Tablet 5 Vitamin D 25 MCG (1000 UT) Oral Tablet 2 Tablets daily. Cranberry 500 MG Oral Capsule Take 1 Capsule by mouth in the morning. guaiFENesin ER 600 MG Oral Tablet Extended Release 12 Hour Take 1 Tablet by mouth 2 times a dayas needed for Congestion. Allopurinol 100 MG Oral Tablet (Zyloprim) TAKE ONE TABLET BY MOUTH IN THE MORNING AND TAKE ONE TABLET BEFORE BEDTIME 200 Tablet 3 Carvedilol 12.5 MG Oral Tablet (Coreg) TAKE TWO TABLETS BY MOUTH EVERY DAY IN THE MORNING AND TAKE ONE TABLET BY MOUTH EVERY DAY IN THE EVENING 90 Tablet 5 Nitrofurantoin Macrocrystal 50 MG Oral Capsule (Macrodantin) TAKE ONE CAPSULE BY MOUTH EVERY DAY WITH MEAL/FOOD (Patient not taking: Reported on 11/08/2022) 90 Capsule 3 Levothyroxine Sodium 150 MCG Oral Tablet (Levoxyl) TAKE ONE TABLET BY MOUTH EVERY MORNING AT LEAST 30 MINUTES PRIOR TO BREAKFAST OR OTHER MEDS 100 Tablet 1 Atorvastatin Calcium 20 MG Oral Tablet (Lipitor) [...] mouth in the morning and 1 Tablet beforebedtime. 60 Tablet 5 No current facility-administered medications for this visit. REVIEW OF SYSTEMS: All other findings negative except as noted in HPI. EXAM: BP 128/61 | Pulse 83 | Temp 36.6 C (97.8 F) | Wt 83.2 kg (183 lb 8 oz) | SpO2 96% | BMI 25.41 kg/m | BSA 2.05 m GENERAL: Well developed and well nourished in no acute distress. SKIN: No rashes, ulcers, jaundice or spider angiomata. HEENT: Normocephalic, sclera clear, pharynx normal. NECK: Supple, no lymphadenopathy, no masses or thyroid enlargement. LUNGS: Clear to auscultation bilaterally, no respiratory distress or accessory muscles used. HEART: Regular rate & rhythm, no murmurs and no gallops. ABDOMEN: Normal bowel sounds, soft and nontender, no masses or hepatosplenomegaly. EXTREMITIES: No palmar erythema, no ankle edema, no skin discoloration, no clubbing, no cyanosis. NEURO: No lateralizing findings. Sensory/Motor grossly normal. DIAGNOSTIC TEST: not indicated ASSESSMENT AND PLAN: 82 year old male withhistory ofhypothyroidism, BPH, CKD 3, gout, neurogenic bladder,history of Colbert's found to have HGD on surveillance EGDs/pesophagectomy with gastric pull-up in early [facility], stool studies negative - clinically feeling well with Questran PRN, will use Miralax PRN constipation - Can continue Questran once daily - Administer other oral medications 1 hour before or 4 hours after cholestyramine - Plan for colonoscopy - Order active - He is deferring test at present time - Please contact us if you would like to have this test done - ED for emergencies - Please call with any questions or concerns RETURN TO CLINIC: 6 months I spent a total of 30 minutes on the date of service in review of patient's record, and previously obtained information in person and appropriate medical visit, discussion and education of plan, withpatient and/or caregiver, placing orders for tests/referral/procedures as medically necessary and documentation of pertinent clinical information in patient's medical records for their visit today. KIKA Varela 11/28/2022 10:10 AM documented in this encounter Plan of Treatment Upcoming Encounters Date Type Specialty Care Team Description 12/06/2022 Cardiac Studies Cardiac Studies 12/13/2022 Office Visit Family Medicine Yanick Canseco, [address] [place] [address] 02/23/2023 Office Visit Dermatology Laure Arias PA-C [address] [facility] [place] [address] 02/27/2023 Office Visit Cardiology Bessy Gill PA-C [address] [place] [address] 03/15/2023 Office Visit Nephrology Ryan Issa MD [address] [facility] [place] [address] Health Maintenance Due Date Last Done Comments CKD PHOS USE SMARTSET 58692 10/11/202209/16, 03/18/2021, 03/02/2021, Additional history exists Influenza Vaccine (FLU shot) (#1) 2022 02/03/2022, 03/02/2021, 01/28/2020, Additional history exists GFR 04/27/2023 10/25/2022, 05/19, 06/06/2022, Additional history exists HbA1c 09/06/2023 09/05/2022, 02/16, 03/02/2021, Additional history exists Albumin/Creatinine Ratio 09/07/2023 023, 09/21/2021, 09/10/2013, Additional history exists CKD HGB USE SMARTSET 23273 10/26/202310/25, 10/25/2022, 06/13/2022, Additional history exists TSH [...] as of this encounter Visit Diagnoses Diagnosis Diarrhea, unspecified type- Primary documented in this encounter Care Teams Veterinary Virologist Relationship Specialty Start Date End Date Yanick Canseco, [address] [place] [address] PCP - General Internal Medicine 04/07/22 documented as of this encounter
--- OUTSIDE RECORDS SUMMARY | 2023-03-04 16:32 | External Medical Summary | Summary of Care ---
Author Name Unknown Organization [facility] Address [address] [facility] [place] [address] Phone [phone] Care Team Providers Care Pelletizer Tender Name Role Phone Yanick Canseco DO Primary Care Provider [phone] Reason for Visit * Reason Onset Date Comments Test Results 11/08/2022 KUB Encounter Details Date Type Department Care Team Description 11/08/2022 Telephone Gastroenterology, [facility] [address] [place] [address] Patricia Mejia CRNP [address] [place] [id number] Test Results (KUB) Allergies Active Allergy Reactions Severity Noted Date Comments Cat Dander 09/25/2014 Dog Dander 09/25/2014 Dust 09/23/2015 Pollen 09/25/2014 Losartan Other (Please comment) 03/02/2021 Hyperkalemia Morphine Nausea/vomiting Low 12/13/2017 Ragweed 09/25/2014 documented as of this encounter (statuses as of 11/08/2022) Medications Medication Sig Dispensed Refills Start Date [...] Tablet by mouth every evening. 0 Active [place]-3 Fatty Acids (ULTRA OMEGA 3) 952 MG CAPSIndications:Dy slipidemia, goal LDL below 100 One tab twice daily 180 Cap 1 04/19/2018 Active Coenzyme Q10 300 MG Oral Wafer Take 600 mg by mouth once. 0 Active DHEA 50 MG Oral Tablet Take 50 mg by mouth daily. 0 Active Nitroglycerin 0.4 MG Sublingual Tablet Sublingual (Nitrostat)Indicat ions:Atheroscleros is of [place] coronary artery of [place] heart without angina pectoris Place under the [...] MEDS 100 Tablet 1 05/30/2022 4 Active Omeprazole 40 MG Oral Capsule Delayed Release (PriLOSEC)Indicati ons:History of esophageal cancer TAKE ONE CAPSULE BY MOUTH EVERY MORNING 1 HOUR BEFORE THE FIRST MEAL OF THE DAY 100 Capsule 3 04/20/2022 4 Active Atorvastatin Calcium 20 MG Oral Tablet (Lipitor) TAKE ONE TABLET BY MOUTH EVERY MORNING 100 Tablet 3 04/20/2022 4 Active Apixaban 2.5 MG Oral Tablet (Eliquis) TAKE ONE TABLET BY MOUTH IN THE MORNING AND BEFORE BEDTIME 200 Tablet 3 04/20/2022 4 Active Catheters by Ureteral route 7 times a day. 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 Overview: Hastings's esophagus: egd by Dr Grant () f/u EGD 2001- per pt Cyst of kidney, acquired Overview: followed at [place] documented as of this encounter (statuses as of 11/08/2022) Resolved Problems Problem Noted Date Resolved Date [...] 3.4 by CTA 08/09/2012 [employer] Other*[id number] 201005/24/2016 Shortness of breath 02/22/2011 12/08/2016 Aortocoronary [...] as of this encounter (statuses as of 11/08/2022) Immunizations Name Administration Dates Next Due COVID-19 [...] (Prevnar) 12/11/2017,12/22/2015 Pneumococcal Polysaccharide PPV23 (Pneumovax) 12/06/2012,01/20/2006,04/02/2004 Seasonal Influenza Virus Vac cine, Unspecified Formulation 12/21/2018,01/29/2018,01/18/2017,10/0 04/2016,02/24/2016,01/06/2010,03/23/20 09,03/05/2008,02/13/2007,01/20/2006,1 06/01/2004,03/20/2003,04/03/2002,04/05,03/22/2000 Seasonal Influenza, Quadriva lent Hd [...] got money to buy more. Never true 10/25/2022 Within the past 12 months, t he food you bought just didn't last and you didn't have money to get more. Never true 10/25/2022 Sex Assigned at Date Recorded Male 08/03/2022 9:25 AM E DT Job Start Date Occupation Industry Not on file Not on file Not on file documented as of this encounter Miscellaneous Notes * Telephone Encounter - KIKA Garcia - 11/08/2022 10:52 AM EDT Noted KIKA Varela 11/08/2022 10:52 AM * Telephone Encounter - Gian Elizabeth RN - 11/08/2022 10:19 AM EDT Called patient, was informed to start Miralax by his PCP office regarding constipation. He states he has been going daily since. Having no issues, I advised he continue on the miralax once daily. He has not been taking cholestyramine and preferred not to go back on this. * Telephone Encounter - Gian Elizabeth RN - 11/08/2022 10:17 AM EDT ----- Message from KIKA Garcia sent at 11/07/2022 10:43 AM EDT ----- KUB shows constipation. How is he feeling What are his current stools like KIKA Varela 11/07/2022 10:43 AM documented in this encounter Plan of Treatment Upcoming Encounters Date Type Specialty Care Team Description 11/08/2022 Office Visit Family Medicine Yanick Canseco, DO [address] [place] [address] 11/21/2022 Cardiac Studies Cardiac Studies 11/28/2022 Office Visit Gastroenterology Patricia Mejia CRNP [address] [place] [address] 12/13/2022 Office Visit Family Medicine Yanick Canseco, DO [address] [place] [address] 12/22/2022 Office Visit Dermatology Laure Arias PA-C [address] [place] [address] [place] [address] 02/23/2023 Office Visit Dermatology Laure Arias PA-C [address] [place] [address] [place] [address] 02/27/2023 Office Visit Cardiology Bessy Gill PA-C [address] [place] [address] 03/15/2023 Office Visit Nephrology Ryan Issa MD [address] [facility] [place] [address] Health Maintenance Due Date Last Done Comments CKD PHOS USE SMARTSET 12953 10/11/2022 06/10/2021, 03/18/2021, 03/02/2021, Additional history exists Influenza Vaccine (FLU shot) (#1) 2022 02/03/2022, 03/02/2021, 01/28/2020, Additional history exists GFR 04/27/2023 10/25/2022, 05/19, 06/06/2022, Additional history exists HbA1c 09/06/2023 09/05/2022, 02/16, 03/02/2021, Additional history exists Albumin/Creatinine Ratio 09/07/2023 023, 09/21/2021, 09/10/2013, Additional history exists CKD HGB USE SMARTSET 14859 10/26/202310/25, 10/25/2022, 06/13/2022, Additional history exists Depression Screening, Annual for Pts 12 and Over 10/26/2023 10/25/2022 TSH 10/26/2023 10/25/2022, 08/16, 05/27/2022, Additional history exists DTaP,Tdap,and Td Vaccines (2 [...] filedocumented as of this encounter Care Teams Pelletizer Tender Relationship Specialty Start Date End Date Yanick Canseco, [address] [facility] [place] [address] PCP - General Internal Medicine 04/07/22 documented as of this encounter
--- OUTSIDE RECORDS SUMMARY | 2023-03-04 16:32 | External Medical Summary | Summary of Care ---
Author Name Unknown Organization [facility] Address [address] [place] [address] Phone [phone] Care Team Providers Care Acute Dialysis Registered Nurse Name Role Phone Yanick Canseco DO Primary Care Provider [phone] Reason for Visit * Reason Comments Chronic Kidney Disease (CKD) Encounter Details Date Type Department Care Team Description 11/04/2022 Office Visit [facility] [address] [place] [address] Ryan Issa MD [address] [facility] [place] [address] Stage 3b chronic kidney disease (HCC)*; Nephrotic range proteinuria; Dysuria Allergies Active Allergy Reactions Severity Noted Date Comments Cat Dander 09/25/2014 Dog Dander 09/25/2014 Dust 09/23/2015 Pollen 09/25/2014 Losartan Other (Please comment) 03/02/2021 Hyperkalemia Morphine Nausea/vomiting Low 12/13/2017 Ragweed 09/25/2014 documented as of this encounter (statuses as of 11/04/2022) Medications Medication Sig Dispensed Refills Start Date [...] Tablet by mouth every evening. 0 Active [place]-3 Fatty Acids (ULTRA OMEGA 3) 952 MG CAPSIndications:Dy slipidemia, goal LDL below 100 One tab twice daily 180 Cap 1 04/19/2018 Active Coenzyme Q10 300 MG Oral Wafer Take 600 mg by mouth once. 0 Active DHEA 50 MG Oral Tablet Take 50 mg by mouth daily. 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 Overview: Colbert's esophagus: egd by Dr Grant () f/u EGD 2001- per pt Cyst of kidney, acquired Overview: followed at [place] documented as of this encounter (statuses as of 11/04/2022) Resolved Problems Problem Noted Date Resolved Date [...] 3.4 by CTA 08/09/2012 [employer] Other*[id number] 201005/24/2016 Shortness of breath 02/22/2011 12/08/2016 Aortocoronary [...] as of this encounter (statuses as of 11/04/2022) Immunizations Name Administration Dates Next Due COVID-19 [...] Sign Reading Time Taken Comments Blood Pressure 146/63 11/04/2022 2:01 PM EDT Pulse 82 11/04/2022 2:01 PM EDT Temperature 36.5 C (97.7 F) 11/04/2022 2:01 PM ED T Respiratory Rate - - Oxygen Saturation - - Inhaled Oxygen Concentration - - Weight 84.2 kg (185 lb 11.2 oz) 11/04/2022 2:01 PM EDT Height - - Body Mass Index 25.72 10/25/2022 2:12 PM EDT documented in this encounter Progress Notes * Ryan Issa MD - 11/04/2022 2:10 PM EDT Chief Complaint Patient presents with [...] CABG . h/o esophageal cancer with esophagectomy over5 yrs ago. No tobacco. No nsaids. No myeloma. No diabetes. Hx of kidney stones, none recently. Declined urorisk in the past.was admitted in the hospital because of atrial fibrillation and related issues in March 2022. Then was admitted with pneumonia May 2022 Since last visit - --- He had bladder stimulator for his neurogenic bladder. However does notseem like it has helped him at all so far and very unlikely it well. No UTI since last visit. He has been maintaining good hygiene while doing CIC. He felt like he was starting to have UTI and started taking nitrofurantoin which he keeps Handy given recurrent UTI. Denies any other symptoms. Denies nausea vomiting chest pain shortness of breath orthopnea PND lower extremity edema. He has been losing weight steadily and has lost about 10 lb in the last 2 months. PMH: Patient Active Problem List Diagnosis Code Other allergic rhinitis J30.89 Colbert's esophagus with high grade dysplasia K22.711 Cyst of kidney, acquired N28.1 BPH without obstruction/lower urinary tract symptoms N40.0 History of coronary artery bypass graft Z95.1 Coronary atherosclerosis of cherokee coronary artery I25.10 Gouty arthropathy M10.9 Disc [...] Infrarenal abdominal 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 ([facility]) I71.43 Current Outpatient Medications Medication Sig [...] Take 1 Tablet by mouth every evening. [place]-3 Fatty Acids (ULTRA OMEGA 3) 952 MG [...] EVERY DAY WITH MEAL/FOOD 90 Capsule 3 Levothyroxine Sodium 150 MCG Oral Tablet (Levoxyl) TAKE ONE TABLET BY MOUTH EVERY MORNING AT LEAST 30 MINUTES PRIOR TO BREAKFAST OR OTHER MEDS 100 Tablet 1 Omeprazole 40 MG Oral Capsule Delayed Release (PriLOSEC) TAKE ONE CAPSULE BY MOUTH EVERY MORNING 1 HOUR BEFORE THE FIRST MEAL OF THE DAY 100 Capsule 3 Atorvastatin Calcium 20 MG Oral Tablet (Lipitor) TAKE ONE TABLET BY MOUTH EVERY MORNING 100 Tablet 3 Apixaban 2.5 MG Oral Tablet (Eliquis) TAKE ONE TABLET BY MOUTH IN THE MORNING AND BEFORE BEDTIME 200 Tablet 3 Catheters by Ureteral route 7 times a day. Uses 14 Caude catheters, self cath's 7 times daily guaiFENesin ER 600 MG Oral Tablet Extended Release 12 Hour Take 1 Tablet by mouth 2 times a dayas needed for Congestion. (Patient not taking: Reported on 11/04/2022) No current facility-administered medications for this visit. Past Medical History: Diagnosis Date Abdominal aortic aneurysm (HCC) 02/20/2009 Aortocoronary bypass status 10/15/2007 Atrial fibrillation (HCC) 02/16/2010 Chronic coronary artery disease 09/22 CABGx4 GIFFORD to LAD, SVG to ramus, SVG to OM, SVG to RCA DISC DIS [id number] 02/20/2009 Dyslipidemia, goal LDL below 100 03/30/2009 Per Lipid Taxonomy. Gouty arthropathy History of esophageal cancer Colbert's esophagus: egd by Dr Grant () f/u EGD 2001- neg per pt HTN, goal to be determined HYPERTROP PROSTATE W/O URIN OB 09/08/2005 Hypothyroidism Kidney disease, chronic, stage III (GFR 30-59 ml/min) ([facility]) 09/10/2013 MAL TIKI ESOPHAGUS NOS Colbert's esophagus: egd by Dr Grant () f/u EGD 2002- neg per pt Moderate to severe aortic insufficiency 03/02/2021 Neurogenic bladder 14 Fr straight tip self cath 6-7 times per day Past Surgical History: Procedure Laterality Date BYPASS GRAFT ANGIOGRAPHY W/LEFT HEART CATH 03/08/2011 BYPASS GRAFT ANGIOGRAPHY W/LEFT HEART CATH performed by RACHEL JACOB at [facility] [place] CABG, ARTERIAL, FOUR OR MORE 09/21/2007 four vessel CAGB CARPAL TUNNEL SURGERY Right 03/2017 COLONOSCOPY 04/2006 CYSTOSCOPY 10/09/2017 done [address] office [address] Chavez EGD, FLEXIBLE, DIAGNOSTIC 03/22/2012 UPPER GI ENDOSCOPY DIAGNOSTIC performed by Odalys Cárdenas MD at [facility] EGD, FLEXIBLE, DIAGNOSTIC 03/23/2012 UPPER GI ENDOSCOPY DIAGNOSTIC performed by Odalys Cárdenas MD at [facility]COPY [facility] BX negative for Colbert's- repeat in 2 years EGD, FLEXIBLE, DIAGNOSTIC N/A 04/29/2014 Unremarkable post esophagectomy anatomy, without evidence of colbert's. repeat in 3 yrs/ESOPHAGOGASTRODUODENOSCOPY (EGD), FLEXIBLE, TRANSORAL, DIAGNOSTIC performed by Odalys Cárdenas MD at ENDOSCOPY [facility] EGD, FLEXIBLE, DIAGNOSTIC N/A 03/17/2016 normal bx/ESOPHAGOGASTRODUODENOSCOPY (EGD), FLEXIBLE, TRANSORAL, DIAGNOSTIC performed by Babatunde Carr MD at ENDOSCOPY [facility] EGD, FLEXIBLE, DIAGNOSTIC N/A 11/19/2019 small amount of retained bilious fluid of stomach, moderate edema and erythema of mucosa in stomach/retained food in stomach/biopsies normal/EGD/[facility] EGD, FLEXIBLE, W/BIOPSY 08/21/2007 No sx of Colbert's EGD, FLEXIBLE, W/BIOPSY 12/01/2009 done anastamosis and GE junction @ 20cm bx done--no eidence of Barretts IMPLANT MESH W/ ABD HERNIA REPR/DEBRIDE 12/2006 IMPLANT NEUROELECTRODES, SACRAL N/A 09/21/2022 INFORMATION 2001 Other Ventral hernia repair R lower abdomen NONE 2002 colonoscopy at [facility]. 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; Social Determinants of Health Financial Resource Strain: [...] Twelve systems reviewed and negative Objective: BP 146/63 (BP Site: Right Arm, BP Position: Sitting, BP Cuff Size: Regular) | Pulse 82 | Temp 36.5 C (97.7 F) (Tympanic) | Wt 84.2 kg (185 lb 11.2 oz) | BMI 25.72 kg/m | BSA 2.06 m Physical Exam- General: alert, healthy, no [...] normal BP Readings from Last 5 Encounters: 11/04/22 146/63 10/25/22 114/58 10/20/22 110/60 09/05/22 134/68 08/19/22 122/66 Wt Readings from Last 5 Encounters: 11/04/22 84.2 kg (185 lb 11.2 oz) 10/25/22 84.4 kg (186 lb 1.6 oz) 09/05/22 87.5 kg (193 lb) 08/19/22 88.6 kg (195 lb 6.4 oz) 08/19/22 88.6 kg (195 lb 6.4 oz) NEPH-FLOW Latest Ref Rng & Units [...] 4,363 (H) Microalb/cr ratio <31 mg/g creat ASSESSMENT: Stage 3b chronic kidney disease (HCC) (Primary) Nephrotic range proteinuria CKD 3A to 3B with nephrotic range proteinuria but without nephrotic syndrome. Etiology of nephrotic range proteinuria is not entirely clear. Most likely related with atrophic right kidney /hypertension. No need of renal biopsy No edema at all Normal albumin Most recent creatinine and GFR was stable at 1.3 and 57. Continue same Given that he does straight catheterization 5-6 times per day he is always at risk of UTI. Unfortunately the bladder stimulator did not work Nephrotic range proteinuria Without nephrotic syndrome. He has had nephrotic range proteinuria but the most recent was 1.5 g. No edema and normal alb. Dysuria complaining of some and started taking nitrofurantoin few days ago. He keeps this Handy Follow Up: Return in about 6 months (around 05/07/2023) for Clinic Visit. | For: Clinic Visit Ryan Issa MD documented in this encounter Nursing Notes * Monique Lau LPN - 11/04/2022 2:00 PM EDT Return patient- pt stated no swelling in legs. No recent illness or hospitalizations. Amlodipine was stopped by PCP documented in this encounter Plan of Treatment Upcoming Encounters Date Type Specialty Care Team Description 11/08/2022 Office Visit Family Medicine Yanick Canseco, [address] [place] [address] 11/21/2022 Cardiac Studies Cardiac Studies 11/28/2022 Office Visit [facility]enterology [facility] [address] [facility] [address] 12/13/2022 Office Visit Family Medicine Yanick Canseco DO [address] [place] [address] 12/22/2022 Office Visit Dermatology Laure Arias PA-C [address] [place] [address] [place] [address] 02/23/2023 Office Visit Dermatology Laure Arias PA-C [address] [place] [address] [place] [address] 02/27/2023 Office Visit Cardiology Bessy Gill PA-C [address] [place] [address] 03/15/2023 [facility] [address] [facility] [address] Health Maintenance Due Date Last Done Comments CKD PHOS USE SMARTSET 47138 10/11/202209/16, 03/18/2021, 03/02/2021, Additional history exists Influenza Vaccine (FLU shot) (#1) 2022 02/03/2022, 03/02/2021, 01/28/2020, Additional history exists GFR 04/27/2023 10/25/2022, 05/19, 06/06/2022, Additional history exists HbA1c 09/06/2023 09/05/2022, 02/16, 03/02/2021, Additional history exists Albumin/Creatinine Ratio 09/07/2023 023, 09/21/2021, 09/10/2013, Additional history exists CKD HGB USE SMARTSET 11625 10/26/202310/25, 10/25/2022, 06/13/2022, Additional history exists Depression [...] disease (HCC)- Primary Nephrotic range proteinuria Proteinuria Dysuria documented in this encounter Care Teams Acute Dialysis Registered Nurse Relationship Specialty Start Date End Date Yanick Canseco, [address] [place] [address] PCP - General Internal Medicine 04/07/22 documented as of this encounter
--- OUTSIDE RECORDS SUMMARY | 2023-03-04 16:32 | External Medical Summary | Summary of Care ---
Author Name Unknown Organization [facility] Address [address] [place] [address] Phone [phone] Care Team Providers Care Environmental Engineering Professor Name Role Phone Yanick Canseco DO Primary Care Provider [phone] Reason for Visit * Reason Onset Date Comments Advice 11/10/2022 Medication quest ion Encounter Details Date Type Department Care Team Description 11/10/2022 Telephone Family Practice [address] [facility] [address] [place] [address] Yanick Canseco [address] [place] [address] Advice (Medication question) Allergies Active Allergy Reactions Severity Noted Date Comments Cat Dander 09/25/2014 Dog Dander 09/25/2014 Dust 09/23/2015 Pollen 09/25/2014 Losartan Other (Please comment) 03/02/2021 Hyperkalemia Morphine Nausea/vomiting Low 12/13/2017 Ragweed 09/25/2014 documented as of this encounter (statuses as of 11/11/2022) Medications Medication Sig Dispensed Refills Start Date [...] Tablet by mouth every evening. 0 Active [place]-3 Fatty Acids (ULTRA OMEGA 3) 952 MG CAPSIndications:Dy slipidemia, goal LDL below 100 One tab twice daily 180 Cap 1 04/19/2018 Active Coenzyme Q10 300 MG Oral Wafer Take 600 mg by mouth once. 0 Active DHEA 50 MG Oral Tablet Take 50 mg by mouth daily. 0 Active Nitroglycerin 0.4 MG Sublingual Tablet Sublingual (Nitrostat)Indicat ions:Atheroscleros is of ho-chunk coronary artery of ho-chunk heart without angina pectoris Place under the [...] by mouth in the morning. 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 Overview: Hastings's esophagus: egd by Dr Grant () f/u EGD 2001- neg per pt Cyst of kidney, acquired Overview: followed at [place] documented as of this encounter (statuses as of 11/11/2022) Resolved Problems Problem Noted Date Resolved Date [...] 3.4 by CTA 08/09/2012 [employer] Other*[id number] 201005/24/2016 Shortness of breath 02/22/2011 12/08/2016 Aortocoronary [...] as of this encounter (statuses as of 11/11/2022) Immunizations Name Administration Dates Next Due COVID-19 mRNA, LNP-s, No Pre serve, 2-Dose Series (Moderna) 06/10/2020,05/13/2020 COVID-19, LNP-s, No Preserve , Adiel-sucrose, Ages 12+ (Pfizer) 12/06/2021 Covid-19 Mrna, Lnp-s, No Pre serve, Booster (Moderna) 02/24/2021 Covid-19, Mrna, Lnp-s, Pf, B ivalent, 30 Mcg, IM, 12 yrs and above ([employer]) 04/19/2022 HEP A - Hepatitis A (Adult [...] encounter Miscellaneous Notes * Telephone Encounter - Erin Amin RN - 11/11/2022 9:12 AM EDT Called patient he only ended up needing the Cholestyramine and his diarrhea resolved. He didn't take an immodium. Will call back if he any other further issues. Will watch out for constipation. * Telephone Encounter - Gian Elizabeth RN - 11/10/2022 11:40 AM EDT Called patient, he is going to take a packet of Cholestyramine at 3 today (took his other meds at 9). If this doesn't help him he will take an immodium. Nursing, please check on patient tomorrow. * Telephone Encounter - EMILY Tena - 11/10/2022 10:53 AM EDT He has gone from constipation to diarrhea and wonders if he should go back on the previous med Please call documented in this encounter Plan of Treatment Upcoming Encounters Date Type Specialty Care Team Description 11/21/2022 Cardiac Studies Cardiac Studies 11/28/2022 Office Visit Gastroenterology Patricia Mejia CRNP [address] [place] [address] 12/13/2022 Office Visit Family Medicine Yanick Canseco DO [address] [facility] [place] [address] 02/23/2023 Office Visit Dermatology Laure Arias PA-C [address] [place] [address] [place] [address] 02/27/2023 Office Visit Cardiology Bessy Gill PA-C [address] [place] [address] 03/15/2023 Office Visit Nephrology Ryan Issa MD [address] [place] [address] Health Maintenance Due Date Last Done Comments CKD PHOS USE SMARTSET 59547 10/11/202209/16, 03/18/2021, 03/02/2021, Additional history exists Influenza Vaccine (FLU shot) (#1) 2022 02/03/2022, 03/02/2021, 01/28/2020, Additional history exists GFR 04/27/2023 10/25/2022, 05/19, 06/06/2022, Additional history exists HbA1c 09/06/2023 09/05/2022, 02/16, 03/02/2021, Additional history exists Albumin/Creatinine Ratio 09/07/2023 023, 09/21/2021, 09/10/2013, Additional history exists CKD HGB USE SMARTSET 02000 10/26/202310/25, 10/25/2022, 06/13/2022, Additional history exists TSH [...] filedocumented as of this encounter Care Teams Environmental Engineering Professor Relationship Specialty Start Date End Date Yanick Canseco, DO [address] [place] [address] PCP - General Internal Medicine 04/07/22 documented as of this encounter
--- OUTSIDE RECORDS SUMMARY | 2023-03-04 16:32 | External Medical Summary | Summary of Care ---
Author Name Unknown Organization [facility] Address [address] [place] [address] Phone [phone] Care Team Providers Care Storage Engineer Name Role Phone Yanick Canseco DO Primary Care Provider [phone] Reason for Visit * Reason Comments Follow Up Encounter Details Date Type Department Care Team Description 11/08/2022 Office Visit Family Practice [facility] [address] [place] [address] Yanick Canseco DO [address] [place] [address] Atherosclerosis of [place] coronary artery of [place] heart without angina pectoris*; Paroxysmal atrial fibrillation (HCC); BPH without obstruction/lower urinary tract symptoms; HTN, goal below 140/90; Disc disorder of lumbar region; Dyslipidemia, goal LDL below 70; Neurogenic bladder; Prediabetes; Asymptomatic bilateral carotid artery stenosis; Hypothyroidism due to acquired atrophy of thyroid; Hypertensive kidney disease with stage 3b chronic kidney disease (HCC); Moderate to severe aortic insufficiency; Persistent proteinuria; Infrarenal abdominal 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 (HCC); Colbert's esophagus with high grade dysplasia Allergies Active Allergy Reactions Severity Noted Date Comments Cat Dander 09/25/2014 Dog Dander 09/25/2014 Dust 09/23/2015 Pollen 09/25/2014 Losartan Other (Please comment) 03/02/2021 Hyperkalemia Morphine Nausea/vomiting Low 12/13/2017 Ragweed 09/25/2014 documented as of this encounter (statuses as of 11/09/2022) Medications Medication Sig Dispensed Refills Start Date [...] Tablet by mouth every evening. 0 Active [place]-3 Fatty Acids (ULTRA OMEGA 3) 952 MG CAPSIndications:Dy slipidemia, goal LDL below 100 One tab twice daily 180 Cap 1 04/19/2018 Active Coenzyme Q10 300 MG Oral Wafer Take 600 mg by mouth once. 0 Active DHEA 50 MG Oral Tablet Take 50 mg by mouth daily. 0 Active Nitroglycerin 0.4 MG Sublingual Tablet Sublingual (Nitrostat)Indicat ions:Atheroscleros is of [place] coronary artery of [place] heart without angina pectoris Place under the [...] as of this encounter (statuses as of 11/09/2022) Active Problems Problem Noted Date Infrarenal abdominal [...] bypass graft 10/15/2007 Coronary atherosclerosis of [place] coron martha artery 10/15/2007 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 09/08/2005 Other allergic rhinitis 02/28/2001 Overview: ICD-10 update of inactive term Colbert's esophagus with high grade dysp lasia Overview: Colbert's esophagus: egd by Dr Grant () f/u EGD 2001- per pt Cyst of kidney, acquired Overview: followed at [facility] documented as of this encounter (statuses as of 11/09/2022) Resolved Problems Problem Noted Date Resolved Date [...] 3.4 by CTA 08/09/2012 [employer] Other*[id number] 201005/24/2016 Shortness of breath 02/22/2011 12/08/2016 Aortocoronary [...] as of this encounter (statuses as of 11/09/2022) Immunizations Name Administration Dates Next Due COVID-19 [...] Reading Time Taken Comments Blood Pressure 118/62 11/08/2022 3:08 PM EDT Pulse 72 11/08/2022 3:08 PM EDT Temperature 36.3 C (97.3 F) 11/08/2022 3:08 PM ED T Respiratory Rate 14 11/08/2022 3:08 PM EDT Oxygen Saturation 96% 11/08/2022 3:08 PM EDT Inhaled Oxygen Concentration - - Weight 84.9 kg (187 lb 3.2 oz) 11/08/2022 3:08 P M EDT Height 181 cm (5' 11.25") 11/08/2022 3:08 PM EDT Body Mass Index 25.93 11/08/2022 3:08 PM EDT documented in this encounter Progress Notes * Yanick Canseco, - 11/09/2022 7:41 AM EDT SUBJECTIVE: Hubert Persaud is a 82 year old male. Chief Complaint Patient presents with Follow Up HPI: Patient is an 82 year old male with a history of atrial fibrillation, CABG, severe aortic valve insufficiency, sleep apnea, hypothyroidism, left calcified renal cyst, esophagectomy to treat Colbert'sesophagus with high grade dysplasia, bilateral 50-69% ICA stenosis, AAA, lumbar disc disease, gout,insomnia, BPH, osteomyelitis of the spine, and sacral neurostimulator implant to treat neurogenic bladder that is seen for follow up. Constipation has resolved. Cholestyramine was stopped and Miralaxwas started. No improvement in urinary retention post stimulator implant. Blood pressure has improved. No chest pain or shortness of breath are present. He follows with [facility]iology at [facility] for [facility]. Patient Active Problem List Diagnosis Code Other allergic rhinitis J30.89 Colbert's esophagus with high grade dysplasia K22.711 Cyst of kidney, acquired N28.1 BPH without obstruction/lower urinary tract symptoms N40.0 History of coronary artery bypass graft Z95.1 Coronary atherosclerosis of [place] coronary artery I25.10 Gouty arthropathy M10.9 Disc [...] 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 (HCC) I71.43 Current Outpatient Medications Medication Sig Dispense [...] Take 1 Tablet by mouth every evening. [place]-3 Fatty Acids (ULTRA OMEGA 3) 952 MG [...] DAY IN THE EVENING 90 Tablet 5 Levothyroxine Sodium 150 MCG Oral [...] MORNING AND BEFORE BEDTIME 200 Tablet 3 Polyethylene Glycol 3350 17 GM Oral Packet (MiraLax) Take 1 Packet by mouth in the morning. Nitrofurantoin Macrocrystal 50 MG Oral Capsule (Macrodantin) TAKE ONE CAPSULE BY MOUTH EVERY DAY WITH MEAL/FOOD (Patient not taking: Reported on 11/08/2022) 90 Capsule 3 Catheters by Ureteral route [...] to OM, SVG to RCA DISC DIS [facility]-[place]-AERMOT 02/20/2009 Dyslipidemia, goal LDL below 100 03/30/2009 [...] performed by Odalys Cárdenas MD at ENDOSCOPY [facility] EGD, FLEXIBLE, DIAGNOSTIC 03/23/2012 UPPER GI ENDOSCOPY DIAGNOSTIC performed by Odalys Cárdenas MD at ENDOSCOPY [facility] BX negative for Clobert's- repeat in 2 years EGD, FLEXIBLE, DIAGNOSTIC N/A 04/29/2014 Unremarkable post esophagectomy anatomy, without evidence of colbert's. repeat in 3 yrs/ESOPHAGOGASTRODUODENOSCOPY (EGD), FLEXIBLE, TRANSORAL, DIAGNOSTIC performed by Odalys Cárdenas MD at ENDOSCOPY [facility] EGD, FLEXIBLE, DIAGNOSTIC N/A 03/17/2016 normal bx/ESOPHAGOGASTRODUODENOSCOPY (EGD), FLEXIBLE, TRANSORAL, DIAGNOSTIC performed by Babatunde Carr MD at ENDOSCOPY [facility] EGD, FLEXIBLE, DIAGNOSTIC N/A 11/19/2019 small amount of retained bilious fluid of stomach, moderate edema and erythema of mucosa in stomach/retained food in stomach/biopsies normal/EGD/[facility] EGD, FLEXIBLE, W/BIOPSY 08/21/2007 No sx of Colbert's EGD, FLEXIBLE, W/BIOPSY 12/01/2009 done anastamosis and GE junction @ 20cm bx done--no eidence of Barretts IMPLANT MESH W/ ABD HERNIA REPR/DEBRIDE 12/2006 IMPLANT NEUROELECTRODES, SACRAL N/A 09/21/2022 INFORMATION 2002 Other Ventral hernia repair R lower abdomen NONE 2002 colonoscopy at [facility] OTHER 10/27/2005 excision of skin lesion [...] stool, constipation, diarrhea, nausea and vomiting. Genitourinary: Urinary retention Musculoskeletal: Negative for back pain and gait problem. Neurological: Negative for dizziness, syncope and headaches. Psychiatric/Behavioral: Negative for confusion, decreased concentration and sleep disturbance. OBJECTIVE: BP 118/62 | Pulse 72 | Temp 36.3 C (97.3 F) | Resp 14 | Ht 1.81 m (5' 11.25") | Wt 84.9 kg (187lb 3.2 oz) | SpO2 96% | BMI 25.93 kg/m | BSA 2.07 m Physical Exam [...] Behavior normal. Thought Content: Thought content normal. Judgment: Judgment normal. PLAN AND ASSESSMENT: Atherosclerosis of [place] coronary artery of [place] heart without angina pectoris (Primary) Continue Carvedilol Continue to follow with Cardiology Paroxysmal atrial fibrillation (HCC) Continue Carvedilol, and Apixaban BPH without obstruction/lower urinary tract symptoms HTN, goal below 140/90 Continue Carvedilol Disc disorder of lumbar region Dyslipidemia, goal LDL below 70 Continue Atorvastatin Neurogenic bladder Continue to straight cath per Urology Prediabetes Asymptomatic bilateral carotid artery stenosis Hypothyroidism due to acquired atrophy of thyroid Continue Levothyroxine Hypertensive kidney disease with stage 3b chronic kidney disease (HCC) Moderate to severe aortic insufficiency Continue to follow with Cardiology Persistent proteinuria Infrarenal abdominal 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 (HCC) Colbert's esophagus with high grade dysplasia S/P esophagectomy Follow Up: Return if symptoms worsen or fail to improve. Yanick Canseco DO 7:41 AM 11/09/2022 documented in this encounter Nursing Notes * Argenis Sauer LPN - 11/08/2022 3:08 PM EDT Here for follow up, is having bowel movements. Thank you documented in this encounter Plan of Treatment Upcoming Encounters Date Type Specialty Care Team Description 11/21/2022 Cardiac Studies Cardiac Studies 11/28/2022 Office Visit Gastroenterology Patricia Mejia CRNP [address] [place] [address] 12/13/2022 Office Visit Family Medicine Yanick Canseco DO [address] [place] [address] 12/22/2022 Office Visit Dermatology Laure Arias PA-C [address] [place] [address] [place] [address] 02/23/2023 Office Visit Dermatology Laure Arias PA-C [address] [place] [address] [place] [address] 02/27/2023 Office Visit Cardiology Bessy Gill PA-C [address] [place] [address] 03/15/2023 Office Visit Nephrology Ryan Issa MD [address] [place] [address] Health Maintenance Due Date Last Done Comments CKD PHOS USE SMARTSET 10992 10/11/202209/16, 03/18/2021, 03/02/2021, Additional history exists Influenza Vaccine (FLU shot) (#1) 2022 02/03/2022, 03/02/2021, 01/28/2020, Additional history exists GFR 04/27/2023 10/25/2022, 05/19, 06/06/2022, Additional history exists HbA1c 09/06/2023 09/05/2022, 02/16, 03/02/2021, Additional history exists Albumin/Creatinine Ratio 09/07/2023 023, 09/21/2021, 09/10/2013, Additional history exists CKD HGB USE SMARTSET 98360 10/26/202310/25, 10/25/2022, 06/13/2022, Additional history exists TSH [...] as of this encounter Visit Diagnoses Diagnosis Atherosclerosis of [place] coronary artery of [place] heart without angina pectoris- Primary Paroxysmal atrial fibrillation (HCC) Atrial fibrillation BPH without obstruction/lower urinary tract symptoms Hypertrophy of prostate without urinary obstruction and other lower urinary tract symptoms (LUTS) HTN, goal below 140/90 Unspecified essential hypertension Disc disorder of lumbar region Other and unspecified disc disorder of lumbar region Dyslipidemia, goal LDL below 70 Other and unspecified hyperlipidemia Neurogenic bladder Neurogenic bladder, NOS Prediabetes Other abnormal glucose Asymptomatic bilateral carotid artery stenosis Occlusion and stenosis of multiple and bilateral precerebral arteries without mention of cerebral infarction Hypothyroidism due to acquired atrophy of thyroid Hypertensive kidney disease with stage 3b chronic kidney disease (HCC) Moderate to severe aortic insufficiency Persistent proteinuria Proteinuria Infrarenal abdominal 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 (HCC) Colbert's esophagus with high grade dysplasia Colbert's esophagus documented in this encounter Care Teams Storage Engineer Relationship Specialty Start Date End Date Yanick Canseco, [address] [place] [address] PCP - General Internal Medicine 04/07/22 documented as of this encounter
--- OUTSIDE RECORDS SUMMARY | 2023-03-04 16:32 | External Medical Summary | Summary of Care ---
Author Name Unknown Organization [facility] Address [address] [place] [address] Phone [phone] Care Team Providers Care Boss Miner Name Role Phone Génesis Canseco DO Primary Care Provider [phone] Reason for Visit * Reason Onset Date Comments Medication Refill 11/15/2022 Encounter Details Date Type Department Care Team Description 11/15/2022 Refill Family Practice 65 [facility] [address] [place] [address] Génesis Canseco DO [address] [place] [address] History of esophageal cancer Allergies Active Allergy Reactions Severity Noted Date Comments Cat Dander 09/25/2014 Dog Dander 09/25/2014 Dust 09/23/2015 Pollen 09/25/2014 Losartan Other (Please comment) 03/02/2021 Hyperkalemia Morphine Nausea/vomiting Low 12/13/2017 Ragweed 09/25/2014 documented as of this encounter (statuses as of 11/16/2022) Medications Medication Sig Dispensed Refills Start Date [...] Tablet by mouth every evening. 0 Active [place]-3 Fatty Acids (ULTRA OMEGA 3) 952 MG CAPSIndications:D yslipidemia, goal LDL below 100 One tab twice daily 180 Cap 1 04/19/2018 Active Coenzyme Q10 300 MG Oral Wafer Take 600 mg by mouth once. 0 Active DHEA 50 MG Oral Tablet Take 50 mg by mouth daily. 0 Active Nitroglycerin 0.4 MG Sublingual Tablet Sublingual (Nitrostat)Indica tions:Atheroscler osis of [place] coronary artery of [place] heart without angina pectoris Place under [...] by mouth in the morning. 0 Active Apixaban 2.5 MG Oral Tablet (Eliquis) Take 1 Tablet by mouth in the morning and 1 Tablet before bedtime. 200 Tablet 1 11/16/2022 Active Omeprazole 40 MG Oral Capsule Delayed Release (PriLOSEC)Indicat ions:History of esophageal cancer Take 1 Capsule by mouth in the morning. 100 Capsule 1 11/16/2022 Active Omeprazole 40 MG Oral Capsule Delayed Release (PriLOSEC)Indicat ions:History of esophageal cancer TAKE ONE CAPSULE BY MOUTH EVERY MORNING 1 HOUR BEFORE THE FIRST MEAL OF THE DAY 100 Capsule 3 04/20/2022 3 Discontinu ed(Refill) Apixaban 2.5 MG Oral Tablet (Eliquis) TAKE ONE TABLET BY MOUTH IN THE MORNING AND BEFORE BEDTIME 200 Tablet 3 04/20/2022 3 Discontinu ed(Refill) documented as of this encounter (statuses as of 11/16/2022) Active Problems Problem Noted Date Infrarenal abdominal [...] artery bypass graft 10/15/2007 Coronary atherosclerosis of [place] coron martha artery 10/15/2007 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 09/08/2005 Other allergic rhinitis 02/28/2001 Overview: ICD-10 update of inactive term 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 Overview: Hastings's esophagus: egd by Dr Grant () f/u EGD 2001- per pt Cyst of kidney, acquired Overview: followed at [place] documented as of this encounter (statuses as of 11/16/2022) Resolved Problems Problem Noted Date Resolved Date [...] 3.4 by CTA 08/09/2012 [employer] [facility] Other*[id number] 201005/24/2016 Shortness of breath 02/22/2011 12/08/2016 Aortocoronary [...] as of this encounter (statuses as of 11/16/2022) Immunizations Name Administration Dates Next Due COVID-19 mRNA, LNP-s, No Pre serve, 2-Dose Series (Moderna) 06/10/2020,05/13/2020 COVID-19, LNP-s, No Preserve , Adiel-sucrose, Ages 12+ ([employer]) 12/06/2021 Covid-19 Mrna, Lnp-s, No Pre serve, [...] encounter Miscellaneous Notes * Telephone Encounter - Carlitos Chou RPh - 11/16/2022 8:07 AM EDTSigned Prescriptions: Disp Refills Apixaban 2.5 MG Oral Tablet (Eliquis) 200 Ta*1 Sig: Take 1 Tablet by mouth in the morning and 1 Tablet before bedtime. Authorizing Provider: GÉNESIS CANSECO Ordering User: CARLITOS CHOU Omeprazole 40 MG Oral Capsule Delayed Rele*100 Ca*1 Sig: Take 1 Capsule by mouth in the morning. Authorizing Provider: GÉNESIS CANSECO Ordering User: CARLITOS CHOU * Telephone Encounter - Celina Brown EMILY - 11/15/2022 9:54 AM EDT Pending Prescriptions: Disp Refills Apixaban 2.5 MG Oral Tablet (Eliquis) 200 Ta*3 Omeprazole 40 MG Oral Capsule Delayed Rel*100 Ca*3 Last Visit: 11/08/2022 (in office), Visit date not found (telemedicine) Next Visit: 12/13/2022 Last date the medication was ordered: Patient Active Problem List Diagnosis Code Other allergic rhinitis J30.89 Hastings's esophagus with high grade dysplasia K22.711 Cyst of kidney, acquired N28.1 BPH without obstruction/lower urinary tract symptoms N40.0 History of coronary artery bypass graft Z95.1 Coronary atherosclerosis of [place] coronary artery I25.10 Gouty arthropathy M10.9 Disc [...] Mejia CRNP [address] [place] [address] 12/06/2022 Cardiac Studies Cardiac Studies 12/13/2022 Office Visit Family Medicine Génesis Canseco DO [address] [place] [address] 02/23/2023 Office Visit Dermatology Laure Arias PA-C [address] [place] [address] [place] [address] 02/27/2023 Office Visit Cardiology Bessy Gill PA-C [address] [place] [address] 03/15/2023 Office Visit Nephrology Ryan Issa MD [address] [place] [address] Health Maintenance Due Date Last Done Comments CKD PHOS USE SMARTSET 84506 10/11/202209/16, 03/18/2021, 03/02/2021, Additional history exists Influenza Vaccine (FLU shot) (#1) 2022 02/03/2022, 03/02/2021, 01/28/2020, Additional history exists GFR 04/27/2023 10/25/2022, 05/19, 06/06/2022, Additional history exists HbA1c 09/06/2023 09/05/2022, 02/16, 03/02/2021, Additional history exists Albumin/Creatinine Ratio 09/07/2023 023, 09/21/2021, 09/10/2013, Additional history exists CKD HGB USE SMARTSET 68429 10/26/202310/25, 10/25/2022, 06/13/2022, Additional history exists TSH [...] as of this encounter Visit Diagnoses Diagnosis History of esophageal cancer Personal history of malignant neoplasm of esophagus documented in this encounter Care Teams Boss Miner Relationship Specialty Start Date End Date Génesis Canseco, DO [address] [place] [address] PCP - General Internal Medicine 04/07/22 documented as of this encounter
--- OUTSIDE RECORDS SUMMARY | 2023-03-04 16:32 | External Medical Summary | Summary of Care ---
Author Name Unknown Organization [facility] Address [address] [place] [address] Phone [phone] Care Team Providers Care Vascular Technologist Sonographer Name Role Phone Génesis Canseco DO Primary Care Provider [phone] Reason for Visit * Reason Onset Date Comments Medication Refill 11/15/2022 Encounter Details Date Type Department Care Team Description 11/15/2022 Refill Family Practice 65 [facility] [address] [place] [address] Génesis Canseco DO [address] [place] [address] History of esophageal cancer Allergies Active Allergy [...] Tablet by mouth every evening. 0 Active [place]-3 Fatty Acids (ULTRA OMEGA 3) 952 MG CAPSIndications:D yslipidemia, goal LDL below 100 One tab twice daily 180 Cap 1 04/19/2018 Active Coenzyme Q10 300 MG Oral Wafer Take 600 mg by mouth once. 0 Active DHEA 50 MG Oral Tablet Take 50 mg by mouth daily. 0 Active Nitroglycerin 0.4 MG Sublingual Tablet Sublingual (Nitrostat)Indica tions:Atheroscler osis of [place] coronary artery of [place] heart without angina pectoris Place under [...] artery bypass graft 10/15/2007 Coronary atherosclerosis of [place] coron martha artery 10/15/2007 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 09/08/2005 Other allergic rhinitis 02/28/2001 Overview: ICD-10 update of inactive term 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 Overview: Hastings's esophagus: egd by Dr Grant () f/u EGD 2001- per pt Cyst of kidney, acquired Overview: followed at [place] documented as of this encounter (statuses as [...] 3.4 by CTA 08/09/2012 [employer] Other*[id number] 201005/24/2016 Shortness of breath 02/22/2011 12/08/2016 Aortocoronary [...] LNP-s, No Preserve , Adiel-sucrose, Ages 12+ ([employer]) 12/06/2021 Covid-19 Mrna, Lnp-s, No Pre serve, [...] artery bypass graft Z95.1 Coronary atherosclerosis of [place] coronary artery I25.10 Gouty arthropathy M10.9 Disc [...] Visit Family Medicine Génesis Canseco DO [address] [place] [address] 02/23/2023 Office Visit Dermatology Laure Arias PA-C [address] [place] [address] [place] [address] 02/27/2023 Office Visit Cardiology Bessy Gill PA-C [address] [place] [address] 03/15/2023 Office Visit Nephrology Ryan Issa MD [address] [place] [address] Health Maintenance Due Date Last Done Comments CKD PHOS USE SMARTSET 46667 10/11/202209/16, 03/18/2021, 03/02/2021, Additional history exists Influenza Vaccine (FLU shot) (#1) 2022 02/03/2022, 03/02/2021, 01/28/2020, Additional history exists GFR 04/27/2023 10/25/2022, 05/19, 06/06/2022, Additional history exists HbA1c 09/06/2023 09/05/2022, 02/16, 03/02/2021, Additional history exists Albumin/Creatinine Ratio 09/07/2023 023, 09/21/2021, 09/10/2013, Additional history exists CKD HGB USE SMARTSET 89212 10/26/202310/25, 10/25/2022, 06/13/2022, Additional history exists TSH [...] esophagus documented in this encounter Care Teams Vascular Technologist Sonographer Relationship Specialty Start Date End Date Génesis Canseco, DO [address] [place] [address] PCP - General Internal Medicine 04/07/22 documented as of this encounter
--- OUTSIDE RECORDS SUMMARY | 2023-03-04 16:32 | External Medical Summary | Summary of Care ---
Author Name Unknown Organization [facility] Address [address] [place] [address] Phone [phone] Care Team Providers Care Maintenance Of Way Clerk Name Role Phone Yanick Canseco DO Primary Care Provider [phone] Encounter Details Date Type Department Care Team Description 11/09/2022 Tree InspectorRisk Modeler Practice 65 [facility], [address] [place] [address] Pinky French, RN Medical home patient [...] Tablet by mouth every evening. 0 Active [place]-3 Fatty Acids (ULTRA OMEGA 3) 952 MG CAPSIndications:Dy slipidemia, goal LDL below 100 One tab twice daily 180 Cap 1 04/19/2018 Active Coenzyme Q10 300 MG Oral Wafer Take 600 mg by mouth once. 0 Active DHEA 50 MG Oral Tablet Take 50 mg by mouth daily. 0 Active Nitroglycerin 0.4 MG Sublingual Tablet Sublingual (Nitrostat)Indicat ions:Atheroscleros is of [place] coronary artery of [place] heart without angina pectoris Place under the [...] bypass graft 10/15/2007 Coronary atherosclerosis of [place] coron martha artery 10/15/2007 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 09/08/2005 Other allergic rhinitis 02/28/2001 Overview: ICD-10 update of inactive term 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 Overview: Hastings's esophagus: egd by Dr Grant () f/u EGD 2001- neg per pt Cyst of kidney, acquired Overview: followed at [place] documented as of this encounter (statuses as [...] 3.4 by CTA 08/09/2012 [employer] Other*[id number] 201005/24/2016 Shortness of breath 02/22/2011 12/08/2016 Aortocoronary [...] 30 Mcg, IM, 12 yrs and above ([employer]) 04/19/2022 HEP A - Hepatitis A (Adult [...] Progress Notes * Pinky French RN - 11/09/2022 3:53 PM EDT SITUATION: CM received call from pt requesting update on catheters BACKGROUND: CM left [facility] and talked to HECTOR Esparza at Dr. No's office. ASSESSMENT: CM explained that this CM spoke with pt's urologist office and that at this point this CM can not assist any further, as his urologist needs to send the update script to his [employer] company. This PCP office is not following pt's catheter needs so all further requests will need to go throughthem going forward. RECOMMENDATION: Pt verbalized understand, but this will need to be reinforced. CM has updated this CM's direct supervisor metal placing regarding the above as pt has been making multiple calls to PCP office regarding this issue, which should be directed to Urology. Pinky French RN Family Practice 65 [facility] 293 [facility] [address] documented in this encounter Plan of Treatment Upcoming Encounters Date Type Specialty Care Team Description 11/21/2022 Cardiac Studies Cardiac Studies 11/28/2022 Office Visit Gastroenterology Patricia Mejia CRNP [address] [facility] [place] [address] 12/13/2022 Office Visit Family Medicine [facility] [address] 02/23/2023 Office Visit Dermatology Laure Arias PA-C [facility] [place] [address] 02/27/2023 Office Visit Cardiology Bessy Gill PA-C [address] [place] [address] 03/15/2023 Office Visit Nephrology [facility] Issa MD [facility] [place] [address] Health Maintenance Due Date Last Done Comments CKD PHOS USE SMARTSET 76926 10/11/202209/16, 03/18/2021, 03/02/2021, Additional history exists Influenza Vaccine (FLU shot) (#1) 2022 02/03/2022, 03/02/2021, 01/28/2020, Additional history exists GFR 04/27/2023 10/25/2022, 05/19, 06/06/2022, Additional history exists HbA1c 09/06/2023 09/05/2022, 02/16, 03/02/2021, Additional history exists Albumin/Creatinine Ratio 09/07/2023 023, 09/21/2021, 09/10/2013, Additional history exists CKD HGB USE SMARTSET 62691 10/26/202310/25, 10/25/2022, 06/13/2022, Additional history exists TSH [...] examination documented in this encounter Care Teams Maintenance Of Way Clerk Relationship Specialty Start Date End Date Yanick Canseco, [address] [place] [address] PCP - General Internal Medicine 04/07/22 documented as of this encounter
--- OUTSIDE RECORDS SUMMARY | 2023-03-04 16:32 | External Medical Summary | Summary of Care ---
Author Name Unknown Organization [facility] Address [address] [place] [address] Phone [phone] Care Team Providers Care Road Machinery Inspector Name Role Phone Yanick Canseco DO Primary Care Provider [phone] Reason for Visit * Reason Onset Date Comments Medication Refill 11/03/2022 Encounter Details Date Type Department Care Team Description 11/03/2022 Refill Family Practice 65 [facility] [address] [place] [address] Yanick Canseco DO [address] [place] [address] Allergies Active Allergy Reactions Severity Noted Date [...] Tablet by mouth every evening. 0 Active [place]-3 Fatty Acids (ULTRA OMEGA 3) 952 MG CAPSIndications:Dy slipidemia, goal LDL below 100 One tab twice daily 180 Cap 1 04/19/2018 Active Coenzyme Q10 300 MG Oral Wafer Take 600 mg by mouth once. 0 Active DHEA 50 MG Oral Tablet Take 50 mg by mouth daily. 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 Will be next due to be filled on 12/09/22. * Telephone Encounter - Argenis Sauer LPN - 11/03/2022 1:26 PM EDT Was sent in can we assist to get this released and mailed to reg please. 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, acquired N28.1 BPH without obstruction/lower urinary tract symptoms N40.0 History of coronary artery bypass graft Z95.1 Coronary atherosclerosis of [place] coronary artery I25.10 Gouty arthropathy M10.9 Disc [...] 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 ([facility]) I71.43 Labs: Lab Results Component Value Date/Time [...] Description 11/08/2022 Office Visit Family Medicine Yanick Canseco DO [address] [place] [address] 11/21/2022 Cardiac Studies Cardiac Studies 11/28/2022 Office Visit Gastroenterology Patricia Mejia CRNP [address] [place] [address] 12/13/2022 Office Visit Family Medicine Yanick Canseco DO [address] [place] [address] 12/22/2022 Office Visit Dermatology Laure Arias PA-C [address] [place] [address] [place] [address] 02/23/2023 Office Visit Dermatology Laure Arias PA-C [address] [place] [address] [place] [address] 02/27/2023 Office Visit Cardiology Bessy Gill PA-C [address] [place] [address] 03/15/2023 Office Visit Nephrology [facility] MD [address] [facility] [id number] Health Maintenance Due Date Last Done Comments CKD PHOS USE SMARTSET 99925 10/11/202209/16, 03/18/2021, 03/02/2021, Additional history exists Influenza Vaccine (FLU shot) (#1) 2022 02/03/2022, 03/02/2021, 01/28/2020, Additional history exists GFR 04/27/2023 10/25/2022, 05/19, 06/06/2022, Additional history exists HbA1c 09/06/2023 09/05/2022, 02/16, 03/02/2021, Additional history exists Albumin/Creatinine Ratio 09/07/2023 023, 09/21/2021, 09/10/2013, Additional history exists CKD HGB USE SMARTSET 73948 10/26/202310/25, 10/25/2022, 06/13/2022, Additional history exists Depression [...] filedocumented as of this encounter Care Teams Road Machinery Inspector Relationship Specialty Start Date End Date Yanick Canseco, DO [address] [place] [facility] [place] [address] PCP - General Internal Medicine 04/07/22 documented as of this encounter
--- OUTSIDE RECORDS SUMMARY | 2023-03-04 16:32 | External Medical Summary | Summary of Care ---
Author Name Unknown Organization [facility] Address [address] [facility] [place] [address] Phone [phone] Care Team Providers Care Driver License Reviewing Officer Name Role Phone Yanick Canseco DO Primary Care Provider [phone] Encounter Details Date Type Department Care Team Description 10/27/2022 Orders Only Gastroenterology, [facility] [address] [place] [address] Ariadne Ornelas DO [address] [place] [address] Allergies Active Allergy Reactions Severity Noted Date [...] by mouth every evening. 0 Active [place]-3 Fatty Acids (ULTRA OMEGA 3) 952 MG CAPSIndications:Dy slipidemia, goal LDL below 100 One tab twice daily 180 Cap 1 04/19/2018 Active Coenzyme Q10 300 MG Oral Wafer Take 600 mg by mouth once. 0 Active DHEA 50 MG Oral Tablet Take 50 mg by mouth daily. 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 Overview: Hastings's esophagus: egd by Dr Grant () f/u EGD 2001- neg per pt Cyst of kidney, acquired Overview: followed at [place] documented as of this encounter (statuses as [...] 3.4 by CTA 08/09/2012 [employer] Other*[id number] 201005/24/2016 Shortness of breath 02/22/2011 12/08/2016 Aortocoronary [...] 30 Mcg, IM, 12 yrs and above ([employer]) 04/19/2022 HEP A - Hepatitis A (Adult [...] Office Visit Family Medicine Yanick Canseco, 293 [facility] [place] [address] 11/21/2022 Cardiac Studies Cardiac Studies 11/28/2022 Office Visit Gastroenterology Patricia Mejia CRNP [address] [place] [address] 12/13/2022 Office Visit Family Medicine Yanick Canseco DO [address] [place] [address] 12/22/2022 Office Visit Dermatology Laure Arias PA-C [address] [place] [address] [place] [address] 02/23/2023 Office Visit Dermatology Laure Arias PA-C [address] [place] [address] [place] [address] 02/27/2023 Office Visit Cardiology Bessy Gill PA-C [address] [place] [address] 03/15/2023 Office Visit Nephrology Ryan Issa MD 200 [facility] [address] Health Maintenance Due Date Last Done Comments CKD PHOS USE SMARTSET 28928 10/11/202209/16, 03/18/2021, 03/02/2021, Additional history exists Influenza Vaccine (FLU shot) (#1) 2022 02/03/2022, 03/02/2021, 01/28/2020, Additional history exists GFR 04/27/2023 10/25/2022, 05/19, 06/06/2022, Additional history exists HbA1c 09/06/2023 09/05/2022, 02/16, 03/02/2021, Additional history exists Albumin/Creatinine Ratio 09/07/2023 023, 09/21/2021, 09/10/2013, Additional history exists CKD HGB USE SMARTSET 13796 10/26/202310/25, 10/25/2022, 06/13/2022, Additional history exists Depression [...] Procedure Name Priority Date/Time Associated Diagnosis Comments UPPER GI ENDOSCOPY 10/27/2022 documented in this encounter Results * UPPER GI ENDOSCOPY (10/27/2022) 10/27/2022 Ariadne Ornelas DO GASTRO UPPER documented in this encounter Care Teams Driver License Reviewing Officer Relationship Specialty Start Date End Date Yanick Canseco, [address] [place] [address] PCP - General Internal Medicine 04/07/22 documented as of this encounter
--- OUTSIDE RECORDS SUMMARY | 2023-03-04 16:32 | External Medical Summary | Summary of Care ---
Author Name Unknown Organization [facility] Address [address] [place] [address] Phone [phone] Care Team Providers Care Big Data Developer Name Role Phone Yanick Canseco DO Primary Care Provider [phone] Encounter Details Date Type Department Care Team Description 11/10/2022 Finger Lift OperatorTravel Nurse Practice 65 [facility], [address] [place] [address] Pinky French, RN Medical home patient encounter* Allergies Active Allergy Reactions Severity Noted Date Comments Cat Dander 09/25/2014 Dog Dander 09/25/2014 Dust 09/23/2015 Pollen 09/25/2014 Losartan Other (Please comment) 03/02/2021 Hyperkalemia Morphine Nausea/vomiting Low 12/13/2017 Ragweed 09/25/2014 documented as of this encounter (statuses as of 11/10/2022) Medications Medication Sig Dispensed Refills Start Date [...] Tablet by mouth every evening. 0 Active [place]-3 Fatty Acids (ULTRA OMEGA 3) 952 MG CAPSIndications:Dy slipidemia, goal LDL below 100 One tab twice daily 180 Cap 1 04/19/2018 Active Coenzyme Q10 300 MG Oral Wafer Take 600 mg by mouth once. 0 Active DHEA 50 MG Oral Tablet Take 50 mg by mouth daily. 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 Overview: Hastings's esophagus: egd by Dr Grant () f/u EGD 2001- neg per pt Cyst of kidney, acquired Overview: followed at [place] documented as of this encounter (statuses as of 11/10/2022) Resolved Problems Problem Noted Date Resolved Date [...] 3.4 by CTA 08/09/2012 [employer] Other*[id number] 201005/24/2016 Shortness of breath 02/22/2011 12/08/2016 Aortocoronary [...] as of this encounter (statuses as of 11/10/2022) Immunizations Name Administration Dates Next Due COVID-19 mRNA, LNP-s, No Pre serve, 2-Dose Series (Moderna) 06/10/2020,05/13/2020 COVID-19, LNP-s, No Preserve , Adiel-sucrose, Ages 12+ (Pfizer) 12/06/2021 Covid-19 Mrna, Lnp-s, No Pre serve, Booster (Moderna) 02/24/2021 Covid-19, Mrna, Lnp-s, Pf, B ivalent, 30 Mcg, IM, 12 yrs and above ([employer]) 04/19/2022 HEP A - Hepatitis A (Adult [...] Progress Notes * Pinky French RN - 11/10/2022 2:48 PM EDT SITUATION: CM recevied t/c from patient with update BACKGROUND: Pt has bee having constipation/working on getting increase in catheters ASSESSMENT: Pt reports that he is now having lose stools. He is restarting his cholestryamine as advised by GI and will be stopping miralax. Reviewed with him that he can resume miralax again if he starts to feel constipated again but to follow up with GI on this as well. Pt also reports he received t/c from Dr. Ng office confirming that they faxed orders for additional catheters to [facility]. Pt states he will contact [facility] tomorrow to confirm receipt. RECOMMENDATION: Pt to follow up with GI for any further diarrhea or constipation. Pt to follow up with DME provider regarding Pinky French RN Family Practice 65 [facility] [address] [facility] [address] documented in this encounter Plan of Treatment Upcoming Encounters Date Type Specialty Care Team Description 11/21/2022 Cardiac Studies Cardiac Studies 11/28/2022 Office Visit Gastroenterology Patricia Mejia CRNP 132 [facility] [place] [address] 12/13/2022 Office Visit Family Medicine Yanick Canseco, DO [address] [place] [address] 02/23/2023 Office Visit Dermatology Laure Arias PA-C 210 [facility] [place] [address] 02/27/2023 Office Visit Cardiology Bessy Gill PA-C [address] [place] [address] 03/15/2023 Office Visit Nephrology Ryan Issa MD [address] [place] [address] Health Maintenance Due Date Last Done Comments CKD PHOS USE SMARTSET 71705 10/11/202209/16, 03/18/2021, 03/02/2021, Additional history exists Influenza Vaccine (FLU shot) (#1) 2022 02/03/2022, 03/02/2021, 01/28/2020, Additional history exists GFR 04/27/2023 10/25/2022, 05/19, 06/06/2022, Additional history exists HbA1c 09/06/2023 09/05/2022, 02/16, 03/02/2021, Additional history exists Albumin/Creatinine Ratio 09/07/2023 023, 09/21/2021, 09/10/2013, Additional history exists CKD HGB USE SMARTSET 61095 10/26/202310/25, 10/25/2022, 06/13/2022, Additional history exists TSH [...] examination documented in this encounter Care Teams Big Data Developer Relationship Specialty Start Date End Date Yanick Canseco, DO [address] [place] [facility] [place] [address] PCP - General Internal Medicine 04/07/22 documented as of this encounter
--- OUTSIDE RECORDS SUMMARY | 2023-03-04 16:32 | External Medical Summary | Summary of Care ---
Author Name Unknown Organization [facility] Address [address] [facility] [place] [address] Phone [phone] Care Team Providers Care Search Engine Marketing Strategist Name Role Phone Yanick Canseco DO Primary Care Provider Reason for Visit * Reason Onset Date Comments Test Results 11/08/2022 KUB Encounter Details Date Type Department Care Team Description 11/08/2022 Telephone Gastroenterology, [facility] [address] [place] [address] Patricia Mejia CRNP [address] [place] [address] Test Results (KUB) Allergies Active Allergy Reactions [...] Tablet by mouth every evening. 0 Active [place]-3 Fatty Acids (ULTRA OMEGA 3) 952 MG CAPSIndications:Dy slipidemia, goal LDL below 100 One tab twice daily 180 Cap 1 04/19/2018 Active Coenzyme Q10 300 MG Oral Wafer Take 600 mg by mouth once. 0 Active DHEA 50 MG Oral Tablet Take 50 mg by mouth daily. 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 Overview: Hastings's esophagus: egd by Dr Grant () f/u EGD 2001- per pt Cyst of kidney, acquired Overview: followed at [place] documented as of this encounter (statuses as [...] 3.4 by CTA 08/09/2012 [employer] Other*[id number] 201005/24/2016 Shortness of breath 02/22/2011 12/08/2016 Aortocoronary [...] encounter Miscellaneous Notes * Telephone Encounter - Gian Elizabeth RN [...] Visit Family Medicine Yanick Canseco, DO [address] [place] [address] 11/21/2022 Cardiac Studies Cardiac Studies 11/28/2022 Office Visit Gastroenterology Patricia Mejia CRNP [address] [place] [address] 12/13/2022 Office Visit Family Medicine Yanick Canseco DO [address] [place] [address] 12/22/2022 Office Visit Dermatology Laure Arias PA-C [address] [place] [address] [place] [address] 02/23/2023 Office Visit Dermatology Laure Arias PA-C [address] [place] [address] [place] [address] 02/27/2023 Office Visit Cardiology Bessy Gill PA-C [address] [place] [address] 03/15/2023 Office Visit Nephrology Ryan Issa MD [address] [place] [facility] [place] [address] Health Maintenance Due Date Last Done Comments CKD PHOS USE SMARTSET 52964 10/11/202209/16, 03/18/2021, 03/02/2021, Additional history exists Influenza Vaccine (FLU shot) (#1) 2022 02/03/2022, 03/02/2021, 01/28/2020, Additional history exists GFR 04/27/2023 10/25/2022, 05/19, 06/06/2022, Additional history exists HbA1c 09/06/2023 09/05/2022, 02/16, 03/02/2021, Additional history exists Albumin/Creatinine Ratio 09/07/2023 023, 09/21/2021, 09/10/2013, Additional history exists CKD HGB USE SMARTSET 32874 10/26/202310/25, 10/25/2022, 06/13/2022, Additional history exists Depression [...] filedocumented as of this encounter Care Teams Search Engine Marketing Strategist Relationship Specialty Start Date End Date Yanick Canseco, DO 293 [place] [address] PCP - General Internal Medicine 04/07/22 documented as of this encounter
--- OUTSIDE RECORDS SUMMARY | 2023-03-04 16:32 | External Medical Summary | Summary of Care ---
Author Name Unknown Organization [facility] Address [address] [facility] [place] [address] Phone [phone] Care Team Providers Care Rig Mechanic Name Role Phone Yanick Canseco DO Primary Care Provider [phone] Reason for Visit * Reason Onset Date Comments Test Results 11/08/2022 KUB Encounter Details Date Type Department Care Team Description 11/08/2022 Telephone Gastroenterology, [facility] [address] [place] [address] Patricia Mejia CRNP [address] [place] [address] Test Results (KUB) Allergies Active Allergy Reactions [...] Tablet by mouth every evening. 0 Active [place]-3 Fatty Acids (ULTRA OMEGA 3) 952 MG CAPSIndications:Dy slipidemia, goal LDL below 100 One tab twice daily 180 Cap 1 04/19/2018 Active Coenzyme Q10 300 MG Oral Wafer Take 600 mg by mouth once. 0 Active DHEA 50 MG Oral Tablet Take 50 mg by mouth daily. 0 Active Nitroglycerin 0.4 MG Sublingual Tablet Sublingual (Nitrostat)Indicat ions:Atheroscleros is of [place] coronary artery of spirit [...] Cyst of kidney, acquired Overview: followed at [place] documented as of this encounter (statuses as [...] 3.4 by CTA 08/09/2012 [employer] Other*[id number] 201005/24/2016 Shortness of breath 02/22/2011 12/08/2016 Aortocoronary [...] Family Medicine Yanick Canseco, DO [address] [place] [address] 11/21/2022 Cardiac Studies Cardiac Studies 11/28/2022 Office Visit Gastroenterology Patricia Mejia CRNP [address] [place] [address] 12/13/2022 Office Visit Family Medicine Yanick Canseco DO [address] [place] [address] 12/22/2022 Office Visit Dermatology Laure Arias PA-C [address] [place] [address] [place] [address] 02/23/2023 Office Visit Dermatology Laure Arias PA-C [address] [place] [address] [place] [address] 02/27/2023 Office Visit Cardiology Bessy Gill PA-C [address] [place] [address] 03/15/2023 Office Visit Nephrology Ryan Issa MD [address] [place] [address] Health Maintenance Due Date Last Done Comments CKD PHOS USE SMARTSET 41857 10/11/202209/16, 03/18/2021, 03/02/2021, Additional history exists Influenza Vaccine (FLU shot) (#1) 2022 02/03/2022, 03/02/2021, 01/28/2020, Additional history exists GFR 04/27/2023 10/25/2022, 05/19, 06/06/2022, Additional history exists HbA1c 09/06/2023 09/05/2022, 02/16, 03/02/2021, Additional history exists Albumin/Creatinine Ratio 09/07/2023 023, 09/21/2021, 09/10/2013, Additional history exists CKD HGB USE SMARTSET 58558 10/26/202310/25, 10/25/2022, 06/13/2022, Additional history exists Depression [...] filedocumented as of this encounter Care Teams Rig Mechanic Relationship Specialty Start Date End Date Yanick Canseco, DO [address] [place] [address] PCP - General Internal Medicine 04/07/22 documented as of this encounter
--- OUTSIDE RECORDS SUMMARY | 2023-03-04 16:33 | External Medical Summary | Summary of Care ---
Author Name Unknown Organization [facility] Address [address] [place] [address] Phone [phone] Care Team Providers Care Nurse Wound Care Name Role Phone Yanick Canseco DO Primary Care Provider [phone] Encounter Details Date Type Department Care Team Description 10/20/2022 Nurse Only Family Practice 65 [facility] [address] [place] [phone] College, Nurse [facility]ac [address] [address] Allergies Active Allergy Reactions Severity Noted Date Comments Cat Dander 09/25/2014 Dog Dander 09/25/2014 Dust 09/23/2015 Pollen 09/25/2014 Losartan Other (Please comment) 03/02/2021 Hyperkalemia Morphine Nausea/vomiting Low 12/13/2017 Ragweed 09/25/2014 documented as of this encounter (statuses as of 10/24/2022) Medications Medication Sig Dispensed Refills Start Date [...] by mouth every evening. 0 Active [place]-3 Fatty Acids (ULTRA OMEGA 3) 952 MG CAPSIndications: Dyslipidemia, goal LDL below 100 One tab twice daily 180 Cap 1 9 Active Coenzyme Q10 300 MG Oral Wafer Take 600 mg by mouth once. 0 Active DHEA 50 MG Oral Tablet Take 50 mg by mouth daily. 0 Active Nitroglycerin 0.4 MG Sublingual Tablet Sublingual (Nitrostat)Indic ations:Atheroscl erosis of nikolai coronary artery of nikolai heart without angina pectoris Place under the tongue 1 Tablet every 5 minutes as needed for Pain, Chest. Maximum 3 doses. 25 Tablet 5 2 Active Vitamin D 25 MCG (1000 UT) Oral Tablet 2 Tablets daily. 0 2 Active Cranberry 500 MG Oral Capsule Take 1 Capsule by mouth in the morning. 0 3 Active Acidophilus Pearls Oral Capsule Take 1 Capsule by mouth 2 times a day. 0 3 Active guaiFENesin ER 600 MG Oral Tablet Extended Release 12 Hour Take 1 Tablet by mouth 2 times a day as needed for Congestion. 0 3 Active amLODIPine Besylate 2.5 MG Oral Tablet (Norvasc) Take 1 Tablet by mouth in the morning. 100 Tablet 3 3 04/20/19 23 Discontinued([place] prescription brought in as discontinued) Apixaban 2.5 MG Oral Tablet (Eliquis) Take 1 Tablet by mouth in the morning and 1 Tablet before bedtime. 200 Tablet 3 3 04/20/19 23 Discontinued([place] prescription brought in as discontinued) Atorvastatin Calcium 20 MG Oral Tablet (Lipitor) Take 1 Tablet by mouth in the morning. 100 Tablet 3 04/20/19 23 Discontinued([place] prescription brought in as discontinued) Omeprazole 40 MG Oral Capsule Delayed Release (PriLOSEC)Indica tions:History of esophageal cancer Take 1 Capsule by mouth in the morning. 1 hour before the first meal of the day. 100 Capsule 3 3 04/20/19 23 Discontinued([place] prescription brought in as discontinued) Levothyroxine Sodium 150 MCG Oral Tablet (Levoxyl) Take 1 Tablet by mouth in the morning. (at least 30 min prior to breakfast or other meds). 100 Tablet 1 3 05/30/19 23 Discontinued([place] prescription brought in as discontinued) Cholestyramine 4 GM Oral Packet (Questran) Take 1 Packet by mouth in the morning. Mixed with liquid.. 90 Packet 3 3 06/29/19 23 Discontinued([place] prescription brought in as discontinued) Carvedilol 12.5 MG Oral Tablet (Coreg)Indicatio ns:Atrial fibrillation with RVR (HCC) Take 25 mg in the morning and 12.5 mg in the evening 90 Tablet 5 3 09/09/19 23 Discontinued([place] prescription brought in as discontinued) Allopurinol 100 MG Oral Tablet (Zyloprim)Indica tions:Gouty arthropathy Take 1 Tablet by mouth in the morning and 1 Tablet before bedtime. 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 Never true 09/05/2022 Within the past 12 months, t he food you bought just didn't last and you didn't have money to get more. Never true 09/05/2022 Sex Assigned at Date Recorded Male 08/03/2022 9:25 AM E DT Job Start Date Occupation Industry Not on file Not on file Not on file documented as of this encounter Last Filed Vital Signs Vital Sign Reading Time Taken Comments Blood Pressure 110/60 10/20/2022 2:30 PM EDT Pulse 90 10/20/2022 2:30 PM EDT irreg ular Temperature - - Respiratory Rate 15 10/20/2022 2:30 PM EDT Oxygen Saturation 95% 10/20/2022 2:30 PM EDT Inhaled Oxygen Concentration - - Weight - - Height - - Body Mass Index - - documented in this encounter Progress Notes * Argenis Sauer LPN - 10/20/2022 2:31 PM EDT No energy, please see note from today with therapeutic case manager. States symptoms have been about two weeks. Denies chest pain, some sob with exertion with walking up steps, denies any edema Thank you Scheduled Monday with DR Canseco. Asking therapeutic case manager to follow up Monday. Advised patient to stay out of heat, stay hydrated and to call if problems. Thank you documented in this encounter Plan of Treatment Upcoming Encounters Date Type Specialty Care Team Description 10/25/2022 Office Visit Family Medicine Ynaick Canseco, DO [address] [place] [address] 11/04/2022 Office Visit Nephrology Ryan Issa MD [address] [place] [address] 11/21/2022 Cardiac Studies Cardiac Studies 11/28/2022 Office Visit Gastroenterology Patricia Mejia CRNP [address] [place] [address] 12/13/2022 Office Visit Family Medicine Yanick Canseco DO [address] [place] [address] 12/22/2022 Office Visit Dermatology Laure Arias PA-C [address] [place] [address] [place] [address] 02/23/2023 Office Visit Dermatology Laure Arias PA-C [address] [place] [address] [place] [address] 02/27/2023 Office Visit Cardiology Bessy Gill PA-C [address] [place] [address] 03/15/2023 Office Visit Nephrology Ryan Issa MD [address] [place] [address] Health Maintenance Due Date Last Done Comments AAA ULTRASOUND YEARLY 09/08/2022 09/08/2021 , 08/23/2021, 08/25/2020, Additional history exists CKD PHOS USE SMARTSET 53220 10/11/2022 06/2 10/2021, 03/18/2021, 03/02/2021, Additional history exists GFR 12/11/2022 06/13/2022, 05/19, 05/27/2022, Additional history exists Influenza Vaccine (FLU shot) (#1) 2022 02/03/2022, 03/02/2021, 01/28/2020, Additional history exists CKD HGB USE SMARTSET 70201 06/13/202306/13, 06/13/2022, 06/06/2022, Additional history exists Depression Screening, Annual for Pts 12 and Over 09/06/2023 09/05/2022 HbA1c 09/06/2023 09/05/2022, 02/16, 03/02/2021, Additional history exists TSH 09/06/2023 09/05/2022, 05/18, 09/20/2021, Additional history exists Albumin/Creatinine Ratio 09/07/2023 023, 09/21/2021, 09/10/2013, Additional history exists DTaP,Tdap,and Td Vaccines (2 [...] filedocumented as of this encounter Care Teams Nurse Wound Care Relationship Specialty Start Date End Date Yanick Canseco, DO [address] [place] [address] PCP - General Internal Medicine 04/07/22 documented as of this encounter
--- OUTSIDE RECORDS SUMMARY | 2023-03-04 16:33 | External Medical Summary ---
Author Name Unknown Address Unknown Organization K01:[facility] [place] [address] [address] [address] Laboratory Report Ordering Provider Test Date Status CULLEN CAPPS 10/25/2022 14:42:21 Final Observation Date Value Abnormality Reference (Units ) Status SYNC LEUKOCYTES IN BLOOD BY AUTOMATED COUNT 10/25/2022 14:42:21 6.77 4.00-10.80 (K/uL) Final Segs 10/25/2022 14:42:21 58.6 40.0-75.0 (%) Final Lymphs % 10/25/2022 14:42:21 26.3 18.0-42.0 (%) Final Monos 10/25/2022 14:42:21 9.7 1.0-11.0 (%) Final Eosinophils 10/25/2022 14:42:21 3.1 0.0-6.0 (%) Final Basos 10/25/2022 14:42:21 1.9 0.0-2.0 (%) Final Immature Granulocyte, Percent 10/25/2022 14:42:21 0.4 0.0-2.0 (%) Final Absolute Segs 10/25/2022 14:42:21 3.96 1.80-7.70 (K/uL) Final Lymphs, absolute 10/25/2022 14:42:21 1.78 1.00-4.80 (K/ul) Final Monos, Abs 10/25/2022 14:42:21 0.66 0.00-1.10 (K/uL) Final Eos, Abs 10/25/2022 14:42:21 0.21 0.00-0.70 (K/uL) Final Basos, Abs 10/25/2022 14:42:21 0.13 0.00-0.20 (K/uL) Final Immature Granulocytes, Number 10/25/2022 14:42:21 0.03 0.00-0.20 (K/uL) Final Performing Location [facility] - [address] [facility] [address]
--- OUTSIDE RECORDS SUMMARY | 2023-03-04 16:33 | External Medical Summary | Summary of Care ---
Author Name Unknown Organization [facility] Address [address] [place] [address] Phone [phone] Care Team Providers Care Tool Filer Hand Name Role Phone Yanick Canseco DO Primary Care Provider [phone] Reason for Visit * Reason Comments case management Encounter Details Date Type Department Care Team Description 10/28/2022 Route Service ManagerInsurance Claims Clerk Practice 65 [facility], [address] [place] [address] Pinky French, HECTOR Medical home patient encounter* Allergies Active Allergy Reactions Severity Noted Date Comments Cat Dander 09/25/2014 Dog Dander 09/25/2014 Dust 09/23/2015 Pollen 09/25/2014 Losartan Other (Please comment) 03/02/2021 Hyperkalemia Morphine Nausea/vomiting Low 12/13/2017 Ragweed 09/25/2014 documented as of this encounter (statuses as of 10/28/2022) Medications Medication Sig Dispensed Refills Start Date [...] Tablet by mouth every evening. 0 Active [place]-3 Fatty Acids (ULTRA OMEGA 3) 952 MG [...] MEAL/FOOD 90 Capsule 3 09/07/2022 4 Active Cholestyramine 4 GM Oral Packet (Questran) DISSOLVE AND TAKE ONE PACKET BY MOUTH EVERY MORNING MIXED WITH LIQUID 90 Each 3 06/28/2022 4 Active Levothyroxine Sodium 150 MCG Oral [...] as of this encounter (statuses as of 10/28/2022) Active Problems Problem Noted Date Infrarenal abdominal [...] Cyst of kidney, acquired Overview: followed at [place] documented as of this encounter (statuses as of 10/28/2022) Resolved Problems Problem Noted Date Resolved Date [...] 3.4 by CTA 08/09/2012 [employer] Other*[id number] 201005/24/2016 Shortness of breath 02/22/2011 12/08/2016 Aortocoronary [...] as of this encounter (statuses as of 10/28/2022) Immunizations Name Administration Dates Next Due COVID-19 [...] Progress Notes * Pinky French RN - 10/28/2022 1:13 PM EDT Route Service Manager Progress Note: Date: 10/28/22 Assigned Patient Tier: 3 Connected with patient via telephone. Verified patient name/. Advised patient that call is beingrecorded for quality and training purposes. Assessment: Pt. noted the following: CM placed t/c to follow up with pt d/t recent c/o SOB and weakness. Pt wasseen on 10/[address] Canseco who did stop his amlodipine d/t hypotension. (BP at that time 114/58). Pt is taking medications at directed. He reports he still feels short of breath, mostly when going upand down stairs and has dizziness when he gets up at night. He states he "doesn't feel any better, b ut doesn't feel any worse." Pt states "I will come into the clinic every day to get my blood pressure checked. I won't check it at home." CM reviewed recent labs with pt, including TSH, which was normal. Pt is scheduled to be seen by Dr. Issa on 11/04 in nephrology and by Dr. Canseco on 11/08. He is agreeable to this CM calling him next week to follow up. Did you receive an alert for an annual wellness visit? No Is this call for a hospital, correction or rehab facility discharge to home? No Medication Reconciliation: Medication Reconciliation completed: no Review of Current goals: Discussed the following patient-centered CM goals with the patient during this discussion: -Prevention: Prevent admission/readmission -Status: At Risk having cardiac symptoms and hypotension. -: Patient will have issues addressed -Status: On Track COPD Patient: No CHF Patient: NO CM Plan: Route Service Manager will follow-up with patient regarding SOB and dizziness. Remote Patient Monitoring: [facility] Cuff Offered. Patient Declined. Plan for Future Contacts: Plan to follow up early next week to check progress on the following goals/needs health status. Planned contacts from the following parties will occur this week: Specialty Visit as additional contacts per workflow. Advancement/Closure Plan: Keep patient at current Tier with reassessment per workflow. Patient provided CM contact information and encouraged to call with any changes in condition. SNP Member? No PCP Notified of enrollment in CM/HM program: Yes Is Provider in agreement with POC? Yes Pinky French RN Outpatient Case Management documented in this encounter Plan of Treatment Upcoming Encounters Date Type Specialty Care Team Description 11/04/2022 Office Visit Nephrology Ryan Issa MD [address] [place] [address] 11/08/2022 Office Visit Family Medicine Yanick Canseco DO [address] [place] [address] 11/21/2022 Cardiac Studies Cardiac Studies 11/28/2022 Office Visit Gastroenterology Patricia Mejia CRNP [address] [place] [address] 12/13/2022 Office Visit Family Medicine Yanick Canseco DO [address] [place] [address] 12/22/2022 Office Visit Dermatology Laure Arias PA-C [address] [place] [address] [place] [address] 02/23/2023 Office Visit Dermatology Laure Arias PA-C [address] [place] [address] [place] [address] 02/27/2023 Office Visit Cardiology Bessy Gill PA-C [address] [place] [address] 03/15/2023 [facility] [address] [facility] [address] Health Maintenance Due Date Last Done Comments AAA ULTRASOUND YEARLY 09/08/2022 09/08/2021 , 08/23/2021, 08/25/2020, Additional history exists CKD PHOS USE SMARTSET 93517 10/11/202209/16, 03/18/2021, 03/02/2021, Additional history exists Influenza Vaccine (FLU shot) (#1) 2022 02/03/2022, 03/02/2021, 01/28/2020, Additional history exists GFR 04/27/2023 10/25/2022, 05/19, 06/06/2022, Additional history exists HbA1c 09/06/2023 09/05/2022, 02/16, 03/02/2021, Additional history exists Albumin/Creatinine Ratio 09/07/2023 023, 09/21/2021, 09/10/2013, Additional history exists CKD HGB USE SMARTSET 83496 10/26/202310/25, 10/25/2022, 06/13/2022, Additional history exists Depression [...] examination documented in this encounter Care Teams Tool Filer Hand Relationship Specialty Start Date End Date Yanick Canseco, DO [address] [place] [address] PCP - General Internal Medicine 04/07/22 documented as of this encounter
--- OUTSIDE RECORDS SUMMARY | 2023-03-04 16:33 | External Medical Summary | Summary of Care ---
Author Name Unknown Organization [facility] Address [address] [place] [address] Phone [phone] Care Team Providers Care Top Frame Maker Name Role Phone Yanick Canseco DO Primary Care Provider [phone] Encounter Details Date Type Department Care Team Description 11/03/2022 Firer BoilerBroiler Chef Or Cook Practice 65 [facility], [address] [place] [address] Pinky French, RN Medical home patient encounter* Allergies Active Allergy Reactions Severity Noted Date Comments Cat Dander 09/25/2014 Dog Dander 09/25/2014 Dust 09/23/2015 Pollen 09/25/2014 Losartan Other (Please comment) 03/02/2021 Hyperkalemia Morphine Nausea/vomiting Low 12/13/2017 Ragweed 09/25/2014 documented as of this encounter (statuses as of 11/03/2022) Medications Medication Sig Dispensed Refills Start Date [...] by mouth every evening. 0 Active [place]-3 Fatty Acids (ULTRA OMEGA 3) 952 MG CAPSIndications:Dy slipidemia, goal LDL below 100 One tab twice daily 180 Cap 1 04/19/2018 Active Coenzyme Q10 300 MG Oral Wafer Take 600 mg by mouth once. 0 Active DHEA 50 MG Oral Tablet Take 50 mg by mouth daily. 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 Overview: Hastings's esophagus: egd by Dr Grant () f/u EGD 2001- neg per pt Cyst of kidney, acquired Overview: followed at [place] documented as of this encounter (statuses as of 11/03/2022) Resolved Problems Problem Noted Date Resolved Date [...] 3.4 by CTA 08/09/2012 [employer] Other*[id number] 201005/24/2016 Shortness of breath 02/22/2011 12/08/2016 Aortocoronary [...] as of this encounter (statuses as of 11/03/2022) Immunizations Name Administration Dates Next Due COVID-19 mRNA, LNP-s, No Pre serve, 2-Dose Series (Moderna) 06/10/2020,05/13/2020 COVID-19, LNP-s, No Preserve , Adiel-sucrose, Ages 12+ (Pfizer) 12/06/2021 Covid-19 Mrna, Lnp-s, No Pre serve, Booster (Moderna) 02/24/2021 Covid-19, Mrna, Lnp-s, Pf, B ivalent, 30 Mcg, IM, 12 yrs and above (PlumTV) 04/19/2022 HEP A - Hepatitis A (Adult [...] Progress Notes * Pinky French RN - 11/03/2022 10:49 AM EDT CM placed call to patient to follow up with previous c/o dizziness and constipation: 1. Follow-up Routine 2. Attempted Phone Call First Attempt 3. Call Outcome Left Voicemail/Message 4. Plan To attempt another outreach documented in this encounter Plan of Treatment Upcoming Encounters Date Type Specialty Care Team Description 11/04/2022 Office Visit Nephrology Ryan Issa MD [address] [place] [address] 11/08/2022 Office Visit Family Medicine Yanick Canseco DO [address] [place] [address] 11/21/2022 Cardiac Studies Cardiac Studies 11/28/2022 Office Visit Gastroenterology Patricia Mejia CRNP [address] [place] [address] 12/13/2022 Office Visit Family Medicine Yanick Canseco DO [address] [place] [address] 12/22/2022 Office Visit Dermatology Laure Arias PA-C [address] [place] [address] [place] [address] 02/23/2023 Office Visit Dermatology Laure Arias PA-C [address] [facility] [place] [address] 02/27/2023 Office Visit Cardiology Bessy Gill PA-C [address] [place] [address] 03/15/2023 Office Visit Nephrology Ryan Issa MD [address] [place] [address] Health Maintenance Due Date Last Done Comments CKD PHOS USE SMARTSET 84488 10/11/202209/16, 03/18/2021, 03/02/2021, Additional history exists Influenza Vaccine (FLU shot) (#1) 2022 02/03/2022, 03/02/2021, 01/28/2020, Additional history exists GFR 04/27/2023 10/25/2022, 05/19, 06/06/2022, Additional history exists HbA1c 09/06/2023 09/05/2022, 02/16, 03/02/2021, Additional history exists Albumin/Creatinine Ratio 09/07/2023 023, 09/21/2021, 09/10/2013, Additional history exists CKD HGB USE SMARTSET 98260 10/26/202310/25, 10/25/2022, 06/13/2022, Additional history exists Depression [...] examination documented in this encounter Care Teams Top Frame Maker Relationship Specialty Start Date End Date Yanick Canseco, [address] [place] [address] PCP - General Internal Medicine 04/07/22 documented as of this encounter
--- OUTSIDE RECORDS SUMMARY | 2023-03-04 16:33 | External Medical Summary | Summary of Care ---
Author Name Unknown Organization [facility] Address [address] [place] [address] Phone [phone] Care Team Providers Care Hand Tool Filer Name Role Phone Yanick Canseco DO Primary Care Provider [phone] Encounter Details Date Type Department Care Team Description 10/27/2022 Orders Only Family Practice 65 [facility] [address] [place] [address] Yanick Canseco DO [address] [place] [address] Allergies Active Allergy Reactions Severity Noted Date Comments Cat Dander 09/25/2014 Dog Dander 09/25/2014 Dust 09/23/2015 Pollen 09/25/2014 Losartan Other (Please comment) 03/02/2021 Hyperkalemia Morphine Nausea/vomiting Low 12/13/2017 Ragweed 09/25/2014 documented as of this encounter (statuses as of 10/27/2022) Medications Medication Sig Dispensed Refills Start Date [...] Tablet by mouth every evening. 0 Active [place]-3 Fatty Acids (ULTRA OMEGA 3) 952 MG CAPSIndications:Dy slipidemia, goal LDL below 100 One tab twice daily 180 Cap 1 04/19/2018 Active Coenzyme Q10 300 MG Oral Wafer Take 600 mg by mouth once. 0 Active DHEA 50 MG Oral Tablet Take 50 mg by mouth daily. 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 Overview: Hastings's esophagus: egd by Dr Grant () f/u EGD 2001- neg per pt Cyst of kidney, acquired Overview: followed at [place] documented as of this encounter (statuses as of 10/27/2022) Resolved Problems Problem Noted Date Resolved Date [...] 3.4 by CTA 08/09/2012 [employer] Other*[id number] 201005/24/2016 Shortness of breath 02/22/2011 12/08/2016 Aortocoronary [...] as of this encounter (statuses as of 10/27/2022) Immunizations Name Administration Dates Next Due COVID-19 [...] Office Visit Nephrology Ryan Issa MD [address] [place] [address] 11/08/2022 Office Visit Family Medicine Yanick Canseco DO [address] [place] [address] 11/21/2022 Cardiac Studies Cardiac Studies 11/28/2022 Office Visit Gastroenterology Patricia Mejia CRNP [address] [place] [address] 12/13/2022 Office Visit Family Medicine Yanick Canseco DO [address] [place] [address] 12/22/2022 Office Visit Dermatology Laure Arias PA-C [address] [place] [address] [place] [address] 02/23/2023 Office Visit Dermatology Laure Arias PA-C [address] [place] [address] [place] [address] 02/27/2023 Office Visit Cardiology Bessy Gill PA-C [address] [place] [address] 03/15/2023 Office Visit Nephrology [facility] MD [address] [facility] [place] [address] Health Maintenance Due Date Last Done Comments AAA ULTRASOUND YEARLY 09/08/2022 09/08/2021 , 08/23/2021, 08/25/2020, Additional history exists CKD PHOS USE SMARTSET 82336 10/11/202209/16, 03/18/2021, 03/02/2021, Additional history exists Influenza Vaccine (FLU shot) (#1) 2022 02/03/2022, 03/02/2021, 01/28/2020, Additional history exists GFR 04/27/2023 10/25/2022, 05/19, 06/06/2022, Additional history exists HbA1c 09/06/2023 09/05/2022, 02/16, 03/02/2021, Additional history exists Albumin/Creatinine Ratio 09/07/2023 023, 09/21/2021, 09/10/2013, Additional history exists CKD HGB USE SMARTSET 56514 10/26/202310/25, 10/25/2022, 06/13/2022, Additional history exists Depression [...] Name Priority Date/Time Associated Diagnosis Comments UPPER ENDOSCOPY, OUTSIDE PROCEDURE Routine 10/27/2022 documented in this encounter Results * UPPER ENDOSCOPY, OUTSIDE PROCEDURE (10/27/2022) 10/27/2022 History Per Patient GASTRO UPPER OUTSIDE LAB (SEE SCANNED REPORT) documented in this encounter Care Teams Hand Tool Filer Relationship Specialty Start Date End Date Yanick Canseco, [address] [place] [address] PCP - General Internal Medicine 04/07/22 documented as of this encounter
--- OUTSIDE RECORDS SUMMARY | 2023-03-04 16:33 | External Medical Summary ---
Author Name Unknown Address Unknown Organization [id number][place] [place] [address] [address] Laboratory Report Ordering Provider Test Date Status CULLEN CAPPS 10/25/2022 14:42:21 Final Observation Date Value Abnormality Reference (Units ) Status Lipase 10/25/2022 14:42:21 27 13-60 (U/L ) Final Performing Location [facility] [place] [address] [place] [address]
--- OUTSIDE RECORDS SUMMARY | 2023-03-04 16:33 | External Medical Summary | Summary of Care ---
Author Name Unknown Organization [facility] Address [address] [place] [address] Phone [phone] Care Team Providers Care Oil Field Laborer Name Role Phone Yanick Canseco DO Primary Care Provider [phone] Reason for Visit * Reason Onset Date Comments Advice 10/31/2022 Medication quest ion Encounter Details Date Type Department Care Team Description 10/31/2022 Telephone Family Practice [facility] [address] [place] [address] Yanick Canseco [address] [place] [address] Advice (Medication question) Allergies Active Allergy Reactions Severity Noted Date Comments Cat Dander 09/25/2014 Dog Dander 09/25/2014 Dust 09/23/2015 Pollen 09/25/2014 Losartan Other (Please comment) 03/02/2021 Hyperkalemia Morphine Nausea/vomiting Low 12/13/2017 Ragweed 09/25/2014 documented as of this encounter (statuses as of 11/01/2022) Medications Medication Sig Dispensed Refills Start Date [...] Tablet by mouth every evening. 0 Active Revloc-3 Fatty Acids (ULTRA OMEGA 3) 952 MG CAPSIndications:Dy slipidemia, goal LDL below 100 One tab twice daily 180 Cap 1 04/19/2018 Active Coenzyme Q10 300 MG Oral Wafer Take 600 mg by mouth once. 0 Active DHEA 50 MG Oral Tablet Take 50 mg by mouth daily. 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 Overview: Hastings's esophagus: egd by Dr Grant () f/u EGD 2001- per pt Cyst of kidney, acquired Overview: followed at [facility] documented as of this encounter (statuses as of 11/01/2022) Resolved Problems Problem Noted Date Resolved Date [...] 3.4 by CTA 08/09/2012 [employer] Other*[id number] 201005/24/2016 Shortness of breath 02/22/2011 12/08/2016 Aortocoronary [...] as of this encounter (statuses as of 11/01/2022) Immunizations Name Administration Dates Next Due COVID-19 mRNA, LNP-s, No Pre serve, 2-Dose Series (Moderna) 06/10/2020,05/13/2020 COVID-19, LNP-s, No Preserve , Adiel-sucrose, Ages 12+ (Pfizer) 12/06/2021 Covid-19 Mrna, Lnp-s, No Pre serve, Booster (Moderna) 02/24/2021 Covid-19, Mrna, Lnp-s, Pf, B ivalent, 30 Mcg, IM, 12 yrs and above (Lexim) 04/19/2022 HEP A - Hepatitis A (Adult [...] encounter Miscellaneous Notes * Telephone Encounter - Tracy Rodríguez RN - 11/01/2022 11:05 AM EDT I called and followed up with the patient. He states he has been constipated for "1 week-10 days." He clarified " I might go like three days or so and I get to be in a lot of pain and I feel like I would need to go. I would go to the toilet and sit down and not be able to go...I used to go about once daily, every day." No changes to diet/medications. Takes 1 packet Questran daily. Taking Imodium 1 pill daily. Pt states, " I did not take that yesterday, I did not take either one today." Last bowel movement was last evening. He states it was not hard, just very "difficult." Denies blood in his stool, has occasional rectal pressure. No nausea or vomiting, no bloating. Pt is drinking "about 3-4 glasses of water per day and also about a glass of Gatorade." Please advise if you would like a KUB? * Telephone Encounter - Pinky French RN - 11/01/2022 9:20 AM EDT SITUATION: CM received t/c from patient requesting follow up from GI in regards to his current GI medications. BACKGROUND: Pt reports he has been having constipation lasting the last 10 days. ASSESSMENT: Pt states that he was finally able to go this morning and feels he had a full BM, however, he is confused about what he should be taking and if he should make any changes. He is upset, todd tried calling in yesterday, and would like follow up from GI office NOAM RECOMMENDATION: Please contact patient in regards to the above concerns. Thank you, Pinky French RN Family Practice [address] [place] [address] [address] [facility] [phone] * Telephone Encounter - EMILY Perez - 10/31/2022 11:20 AM EDT Pt calling PCP office to ask that someone from Patricia Cadena's office call him regarding daily meds that she prescribed. He is not sure if he should be continuing those or not. He is asking for someone to call him NOAM at [phone] Thank you. documented in this encounter Plan of Treatment Upcoming Encounters Date Type Specialty Care Team Description 11/04/2022 Office Visit Nephrology Ryan Issa MD [address] [place] [address] 11/08/2022 Office Visit Family Medicine Yanick Canseco DO [address] [place] [address] 11/21/2022 Cardiac Studies Cardiac Studies 11/28/2022 Office Visit Gastroenterology Patricia Mejia CRNP [address] [place] [address] 12/13/2022 Office Visit Family Medicine Yanick Canseco DO [address] [place] [address] 12/22/2022 Office Visit Dermatology Laure Arias PA-C [address] [facility] [place] [address] 02/23/2023 Office Visit Dermatology Laure Arias PA-C [address] [facility] [place] [address] 02/27/2023 Office Visit Cardiology Bessy Gill PA-C [address] [place] [address] 03/15/2023 Office Visit Nephrology Ryan Issa MD [address] [place] [address] Scheduled Orders Name Type Priority Associated Diagnoses Orde r Schedule XR ABDOMEN 1 VIEW Medical Imaging Routine Constipation, unspecified constipation type Ordered: 11/01/2022 Health Maintenance Due Date Last Done Comments AAA ULTRASOUND YEARLY 09/08/2022 09/08/2021 , 08/23/2021, 08/25/2020, Additional history exists CKD PHOS USE SMARTSET 85110 10/11/202209/16, 03/18/2021, 03/02/2021, Additional history exists Influenza Vaccine (FLU shot) (#1) 2022 02/03/2022, 03/02/2021, 01/28/2020, Additional history exists GFR 04/27/2023 10/25/2022, 05/19, 06/06/2022, Additional history exists HbA1c 09/06/2023 09/05/2022, 02/16, 03/02/2021, Additional history exists Albumin/Creatinine Ratio 09/07/2023 023, 09/21/2021, 09/10/2013, Additional history exists CKD HGB USE SMARTSET 95764 10/26/202310/25, 10/25/2022, 06/13/2022, Additional history exists Depression [...] as of this encounter Visit Diagnoses Diagnosis Constipation, unspecified constipation type- Primary documented in this encounter Care Teams Oil Field Laborer Relationship Specialty Start Date End Date Yanick Canseco, [address] [place] [address] PCP - General Internal Medicine 04/07/22 documented as of this encounter
--- OUTSIDE RECORDS SUMMARY | 2023-03-04 16:33 | External Medical Summary | Summary of Care ---
Author Name Unknown Organization [facility] Address [address] [place] [address] Phone [phone] Care Team Providers Care Photographic Editor Name Role Phone Yanick Canseco DO Primary Care Provider [phone] Reason for Visit * Reason Onset Date Comments Information 11/04/2022 Encounter Details Date Type Department Care Team Description 11/04/2022 Telephone Family Practice [address] [facility] [address] [place] [phone] Yanick Canseco DO [address] [place] [address] Information Allergies Active Allergy Reactions Severity Noted Date [...] Tablet by mouth every evening. 0 Active Kiron-3 Fatty Acids (ULTRA OMEGA 3) 952 MG CAPSIndications:D yslipidemia, goal LDL below 100 One tab twice daily 180 Cap 1 9 Active Coenzyme Q10 300 MG Oral Wafer Take 600 mg by mouth once. 0 Active DHEA 50 MG Oral Tablet Take 50 mg by mouth daily. 0 Active Nitroglycerin 0.4 MG Sublingual Tablet Sublingual (Nitrostat)Indica tions:Atheroscler osis of [place] coronary artery of [place] heart without angina pectoris Place under the tongue 1 Tablet every 5 minutes as needed for Pain, Chest. Maximum 3 doses. 25 Tablet 5 2 Active Vitamin D 25 MCG (1000 UT) Oral Tablet 2 Tablets daily. 0 2 Active Cranberry 500 MG Oral Capsule Take 1 Capsule by mouth in the morning. 0 3 Active guaiFENesin ER 600 MG Oral Tablet Extended Release 12 Hour Take 1 Tablet by mouth 2 times a day as needed for Congestion. 0 3 Active Allopurinol 100 MG Oral Tablet (Zyloprim)Indicat ions:Gouty arthropathy TAKE ONE TABLET BY MOUTH IN THE MORNING AND TAKE ONE TABLET BEFORE BEDTIME 200 Tablet 3 3 10/10/19 24 Active Carvedilol 12.5 MG Oral Tablet (Coreg)Indication s:Atrial fibrillation with RVR (HCC) TAKE TWO TABLETS BY MOUTH EVERY DAY IN THE MORNING AND TAKE ONE TABLET BY MOUTH EVERY DAY IN THE EVENING 90 Tablet 5 3 09/08/19 24 Active Nitrofurantoin Macrocrystal 50 MG Oral Capsule (Macrodantin) TAKE ONE CAPSULE BY MOUTH EVERY DAY WITH MEAL/FOOD 90 Capsule 3 09/07/19 24 Active Levothyroxine Sodium 150 MCG Oral Tablet (Levoxyl) TAKE ONE TABLET BY MOUTH EVERY MORNING AT LEAST 30 MINUTES PRIOR TO BREAKFAST OR OTHER MEDS 100 Tablet 1 3 05/30/19 24 Active Omeprazole 40 MG Oral Capsule Delayed Release (PriLOSEC)Indicat ions:History of esophageal cancer TAKE ONE CAPSULE BY MOUTH EVERY MORNING 1 HOUR BEFORE THE FIRST MEAL OF THE DAY 100 Capsule 3 3 04/20/19 24 Active Atorvastatin Calcium 20 MG Oral Tablet (Lipitor) TAKE ONE TABLET BY MOUTH EVERY MORNING 100 Tablet 3 3 04/20/19 24 Active Apixaban 2.5 MG Oral Tablet (Eliquis) TAKE ONE TABLET BY MOUTH IN THE MORNING AND BEFORE BEDTIME 200 Tablet 3 3 04/20/19 24 Active Catheters by Ureteral route 7 times a day. 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 Will my g patient. * Telephone Encounter - Yanick Canseco DO - 11/04/2022 12:35 PM EDT OK to stop Questran. Continue Miralax and colace Imaging not reported yet * Telephone Encounter - Argenis Sauer LPN - 11/04/2022 10:38 AM EDT Patient calling, states he feels rectal pressure as though he is going to have a bm, but does not have a bm. Has talked to GI, GI ordered a KUB to check for obstruction. Last bm was 3 days ago. Patient does self cath--states no problems with this. Will have imaging done today. Advised to take miralax and colace--take each one once daily Is no longer taking questran. Thank you documented in this encounter Plan of Treatment Upcoming Encounters Date Type Specialty Care Team Description 11/04/2022 Office Visit Nephrology Ryan Issa MD [address] [place] [address] 11/08/2022 Office Visit Family Medicine Yanick Canseco DO [address] [place] [address] 11/21/2022 Cardiac Studies Cardiac Studies 11/28/2022 Office Visit Gastroenterology Patricia Mejia CRNP [address] [facility] [place] [address] 12/13/2022 Office Visit Family Medicine Yanick Canseco DO [address] [place] [address] 12/22/2022 Office Visit Dermatology Laure Arias PA-C [address] [place] [address] [place] [address] 02/23/2023 Office Visit Dermatology Laure Arias PA-C [address] [place] [address] [place] [address] 02/27/2023 Office Visit Cardiology Bess[facility] Gill [facility]C [address] [facility] [address] 03/15/2023 Office Visit Nephrology Ryan Issa MD [address] [place] [address] Health Maintenance Due Date Last Done Comments CKD PHOS USE SMARTSET 57226 10/11/202209/16, 03/18/2021, 03/02/2021, Additional history exists Influenza Vaccine (FLU shot) (#1) 2022 02/03/2022, 03/02/2021, 01/28/2020, Additional history exists GFR 04/27/2023 10/25/2022, 05/19, 06/06/2022, Additional history exists HbA1c 09/06/2023 09/05/2022, 02/16, 03/02/2021, Additional history exists Albumin/Creatinine Ratio 09/07/2023 023, 09/21/2021, 09/10/2013, Additional history exists CKD HGB USE SMARTSET 69882 10/26/202310/25, 10/25/2022, 06/13/2022, Additional history exists Depression [...] filedocumented as of this encounter Care Teams Photographic Editor Relationship Specialty Start Date End Date Yanick Canseco, [address] [place] [address] PCP - General Internal Medicine 04/07/22 documented as of this encounter
--- OUTSIDE RECORDS SUMMARY | 2023-03-04 16:33 | External Medical Summary | Summary of Care ---
Author Name Unknown Organization [facility] Address [address] [place] [address] Phone [phone] Care Team Providers Care Reinforcing Bar Setter Name Role Phone Yanick Canseco DO Primary Care Provider [phone] Reason for Referral * Ancillary Services (Within 3 days (urgent)) - Authorized Specialty Diagnoses / Procedures Referred By Jose rivero Referred To Contact Gastroenterology Diagnoses Nausea and vomiting, unspecified vomiting type Yanick Canseco DO [address] [place] [address] Referral ID Status Reason Start Date Expiration Date Visits Requested Visits Authorized [id number] Authorized Ancillary Services Required 10/25/2022 999 999 Question Answer Referral Priority Within 3 days (urgent) Comments Upper Endoscopy ASGE Guidelines Persistent vomiting of unknown cause ADDITIONAL INFORMATION 1. Is the patient on Coumadin? No 2. Is the patient on Pradaxa? No Reason for Visit * Reason Comments Follow Up Encounter Details Date Type Department Care Team Description 10/25/2022 Office Visit Family Practice [facility] [place] [address] [place] [phone] Yanick Canseco DO [address] [place] [address] Nausea and vomiting, unspecified vomiting type*; Paroxysmal atrial fibrillation (HCC); Atherosclerosis of [place] coronary artery of [place] heart without angina pectoris; Hypertensive kidney disease with stage 3b chronic kidney disease (HCC); Moderate to severe aortic insufficiency; Gouty arthropathy; Dyslipidemia, goal LDL below 70; Mild obstructive sleep apnea; Neurogenic bladder; Prediabetes; Asymptomatic bilateral carotid artery stenosis; Infrarenal abdominal 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 (HCC); Hypothyroidism due to acquired atrophy of thyroid; Persistent proteinuria; BPH without obstruction/lower urinary tract symptoms; Disc disorder of lumbar region Allergies Active Allergy Reactions Severity Noted Date Comments Cat Dander 09/25/2014 Dog Dander 09/25/2014 Dust 09/23/2015 Pollen 09/25/2014 Losartan Other (Please comment) 03/02/2021 Hyperkalemia Morphine Nausea/vomiting Low 12/13/2017 Ragweed 09/25/2014 documented as of this encounter (statuses as of 10/25/2022) Medications Medication Sig Dispensed Refills Start Date [...] Tablet by mouth every evening. 0 Active [place]-3 Fatty Acids (ULTRA OMEGA 3) 952 MG CAPSIndications: Dyslipidemia, goal LDL below 100 One tab twice daily 180 Cap 1 9 Active Coenzyme Q10 300 MG Oral Wafer Take 600 mg by mouth once. 0 Active DHEA 50 MG Oral Tablet Take 50 mg by mouth daily. 0 Active Nitroglycerin 0.4 MG Sublingual Tablet Sublingual (Nitrostat)Indic ations:Atheroscl erosis of [place] coronary artery of [place] heart without angina pectoris Place under the [...] 24 Active Carvedilol 12.5 MG Oral Tablet (Coreg)Indicatio ns:Atrial fibrillation with RVR (HCC) TAKE TWO TABLETS BY MOUTH EVERY DAY IN THE MORNING AND TAKE ONE TABLET BY MOUTH EVERY DAY IN THE EVENING 90 Tablet 5 3 09/08/19 24 Active Nitrofurantoin Macrocrystal 50 MG Oral Capsule (Macrodantin) TAKE ONE CAPSULE BY MOUTH EVERY DAY WITH MEAL/FOOD 90 Capsule 3 3 09/07/19 24 Active Cholestyramine 4 GM Oral Packet (Questran) DISSOLVE AND TAKE ONE PACKET BY MOUTH EVERY MORNING MIXED WITH LIQUID 90 Each 3 3 06/28/19 24 Active Levothyroxine Sodium 150 MCG Oral [...] cath's 7 times daily 0 3 Active Acidophilus Pearls Oral Capsule Take 1 Capsule by mouth 2 times a day. 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 Overview: Colbert's esophagus: egd by Dr Grant () f/u EGD 2002- neg per pt Cyst of kidney, acquired Overview: followed at [place] documented as of this encounter (statuses as of 10/25/2022) Resolved Problems Problem Noted Date Resolved Date [...] 3.4 by CTA 08/09/2012 [employer] [facility] Other*[id number] 201005/24/2016 Shortness of breath 02/22/2011 12/08/2016 Aortocoronary [...] as of this encounter (statuses as of 10/25/2022) Immunizations Name Administration Dates Next Due COVID-19 [...] Sign Reading Time Taken Comments Blood Pressure 114/58 10/25/2022 2:12 PM EDT Pulse 82 10/25/2022 2:12 PM EDT Temperature 36.1 C (97 F) 10/25/2022 2:12 PM EDT Respiratory Rate 16 10/25/2022 2:12 PM EDT Oxygen Saturation 97% 10/25/2022 2:12 PM EDT Inhaled Oxygen Concentration - - Weight 84.4 kg (186 lb 1.6 oz) 10/25/2022 2:12 P M EDT Height 181 cm (5' 11.25") 10/25/2022 2:12 PM EDT Body Mass Index 25.77 10/25/2022 2:12 PM EDT documented in this encounter Progress Notes * Yanick Canseco, DO - 10/25/2022 2:28 PM EDT SUBJECTIVE: Hubert Persaud is a 82 year old male. Chief Complaint Patient presents with Follow Up HPI: Patient is an 82 year old male with a history of atrial fibrillation, CABG, severe aortic Valve insufficiency, sleep apnea, hypothyroidism, left calcified renal cyst, esophagectomy to treat Colbert'swith high grade dysplasia, bilateral 50-69% ICA stenosis, AAA, lumbar disc disease, gout, insomnia,BPH, osteomyelitis of the spine, and sacral neurostimulator implant to treat neurogenic bladder that is seen for fatigue. The patient has fatigue and low blood pressures for a few weeks. He also has intermittent nausea and vomiting after eating his evening meal for 4-5 months. Vomiting episodes occur 2-3 times a week. He is taking Omeprazole daily. Weight is down and appetite has decreased. No chest pain or shortness of breath are present. The patient was evaluated at the heart valve clinic at [facility] in 08/2022. He is to return in 1 year for follow up Echo. Patient Active Problem List Diagnosis Code Other allergic rhinitis J30.89 Colbert's esophagus with high grade dysplasia K22.711 Cyst of kidney, acquired N28.1 BPH without obstruction/lower urinary tract symptoms N40.0 History of coronary artery bypass graft Z95.1 Coronary atherosclerosis of [place] coronary artery I25.10 Gouty arthropathy M10.9 Disc [...] Infrarenal abdominal 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 ([facility]) I71.43 Current Outpatient Medications Medication Sig Dispense [...] Take 1 Tablet by mouth every evening. [place]-3 Fatty Acids (ULTRA OMEGA 3) 952 MG [...] EVERY DAY WITH MEAL/FOOD 90 Capsule 3 Cholestyramine 4 GM Oral Packet (Questran) DISSOLVE AND TAKE ONE PACKET BY MOUTH EVERY MORNING MIXED WITH LIQUID 90 Each 3 Levothyroxine Sodium 150 MCG Oral Tablet [...] Medical History: Diagnosis Date Abdominal aortic aneurysm ([facility]) 02/20/2009 Aortocoronary bypass status 10/15/2007 Atrial fibrillation ([facility]) 02/16/2010 Chronic coronary artery disease 09/22 CABGx4 GIFFORD to LAD, SVG to ramus, SVG to OM, SVG to RCA DISC DIS [id number]-[id number] 02/20/2009 Dyslipidemia, goal LDL below 100 03/30/2009 Per Lipid Taxonomy. Gouty arthropathy History of esophageal cancer Colbert's esophagus: egd by Dr Grant () f/u EGD 2001- neg per pt HTN, goal to be determined HYPERTROP PROSTATE W/O URIN OB 09/08/2005 Hypothyroidism Kidney disease, chronic, stage III (GFR 30-59 ml/min) ([facility]) 09/10/2013 MAL TIKI ESOPHAGUS NOS Colbert's esophagus: egd by Dr Grant () f/u EGD 2001- neg per pt Moderate to severe aortic insufficiency 03/02/2021 Neurogenic bladder 14 Fr straight tip self cath 6-7 times per day Past Surgical History: Procedure Laterality Date BYPASS GRAFT ANGIOGRAPHY W/LEFT HEART CATH 03/08/2011 BYPASS GRAFT ANGIOGRAPHY W/LEFT HEART CATH performed by RACHEL JACOB at [facility] [place] CABG, ARTERIAL, FOUR OR MORE 09/21/2007 four vessel CAGB CARPAL TUNNEL SURGERY Right 03/2017 COLONOSCOPY 04/2006 CYSTOSCOPY 10/09/2017 done [address] office [address] Chavez EGD, FLEXIBLE, DIAGNOSTIC 03/22/2012 UPPER GI ENDOSCOPY DIAGNOSTIC performed by Odalys Cárdenas MD at ENDOSCOPY [facility] EGD, FLEXIBLE, DIAGNOSTIC 03/23/2012 UPPER GI ENDOSCOPY DIAGNOSTIC performed by Odalys Cárdenas MD at ENDOSCOPY [facility] BX negative for Colbert's- repeat in 2 years EGD, FLEXIBLE, DIAGNOSTIC N/A 04/29/2014 Unremarkable post esophagectomy anatomy, without evidence of colbert's. repeat in 3 yrs/ESOPHAGOGASTRODUODENOSCOPY (EGD), FLEXIBLE, TRANSORAL, DIAGNOSTIC performed by Odalys Cárdenas MD at ENDOSCOPY [facility] EGD, FLEXIBLE, DIAGNOSTIC N/A 03/17/2016 normal bx/ESOPHAGOGASTRODUODENOSCOPY (EGD), FLEXIBLE, TRANSORAL, DIAGNOSTIC performed by Babatunde Carr MD at ENDOSCOPY [facility] EGD, FLEXIBLE, DIAGNOSTIC N/A 11/19/2019 small amount of retained bilious fluid of stomach, moderate edema and erythema of mucosa in stomach/retained food in stomach/biopsies normal/EGD/[facility] EGD, FLEXIBLE, W/BIOPSY 08/21/2007 No sx of Colbert's EGD, FLEXIBLE, W/BIOPSY 12/01/2009 done anastamosis and GE junction @ 20cm bx done--no eidence of Barretts IMPLANT MESH W/ ABD HERNIA REPR/DEBRIDE 12/2006 IMPLANT NEUROELECTRODES, SACRAL N/A 09/21/2022 INFORMATION 2002 Other Ventral hernia repair R lower abdomen NONE 2002 colonoscopy at [facility] OTHER 10/27/2005 excision of skin lesion [...] Nausea/vomiting Review of Systems Constitutional: Positive for appetite change, fatigue and unexpected weight change. Respiratory: Negative for cough, shortness of breath and wheezing. Cardiovascular: Negative for chest pain, palpitations and leg swelling. Gastrointestinal: Positive for abdominal pain, nausea and vomiting. Negative for blood in stool, constipation and diarrhea. Genitourinary: Negative for dysuria and hematuria. Neurological: Positive for dizziness. Negative for syncope and headaches. Psychiatric/Behavioral: Negative for confusion, decreased concentration and sleep disturbance. OBJECTIVE: BP 114/58 | Pulse 82 | Temp 36.1 C (97 F) | Resp 16 | Ht 1.81 m (5' 11.25") | Wt 84.4 kg (186 lb 1.6 oz) | SpO2 97% | BMI 25.77 kg/m | BSA 2.06 m Physical Exam Vitals and nursing note reviewed. Constitutional: General: He is not in acute distress. Appearance: He is not toxic-appearing. HENT: Head: Normocephalic [...] No edema. Neurological: Mental Status: He is alert. Mental status is at baseline. Motor: No weakness. Gait: Gait normal. Psychiatric: Mood and Affect: Mood normal. Behavior: Behavior normal. ECG: reviewed by myself ECG: Atrial fibrillation with controlled rate, LVH, septal infarct present 06/06/2022 PLAN AND ASSESSMENT: Nausea and vomiting, unspecified vomiting type (Primary) - COMPREHENSIVE METABOLIC PANEL; Future; Expected date: 10/25/2022 - CBC WITH WBC DIFFERENTIAL; Future; Expected date: 10/25/2022 - UPPER ENDOSCOPY GI REFERRAL OP - LIPASE; Future; Expected date: 10/25/2022 Continue omeprazole Paroxysmal atrial fibrillation (HCC) - EKG Continue Carvedilol, and Apixaban Atherosclerosis of [place] coronary artery of [place] heart without angina pectoris Continue Carvedilol Hypertensive kidney disease with stage 3b chronic kidney disease (HCC) Continue Carvedilol Stop Amlodipine due to hypotension Moderate to severe aortic insufficiency Continue to follow with Cardiology Notes from [facility] Cardiology reviewed Gouty arthropathy Continue Allopurinol Dyslipidemia, goal LDL below 70 Mild obstructive sleep apnea Neurogenic bladder S/p sacral neurostimulator implant Prediabetes Asymptomatic bilateral carotid artery stenosis Infrarenal abdominal 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 (HCC) Hypothyroidism due to acquired atrophy of thyroid - TSH WITH FREE T4 IF INDICATED; Future; Expected date: 10/25/2022 Persistent proteinuria BPH without obstruction/lower urinary tract symptoms Disc disorder of lumbar region I spent a total of 40-54 minutes (exact time 40 mins) on the date of service in preparation, delivery, and documentation of the care provided to Hubert Persaud excluding any time spent in the performance of separately billed services. Follow-up: Return in about 2 weeks (around 11/08/2022). | Check-out note: Schedule EGD Yanick Canseco DO 2:28 PM 10/25/2022 documented in this encounter Plan of Treatment Upcoming Encounters Date Type Specialty Care Team Description 10/27/2022 Hospital Encounter Endoscopy Carly Moreno MD [address] [facility] [place] [address] 10/27/2022 Surgery Endoscopy Carly Moreno MD [address] [place] [address] ESOPHAGOGASTRODUODENOSCOPY (EGD), FLEXIBLE, TRANSORAL, DIAGNOSTIC 11/04/2022 Office Visit Nephrology Ryan Issa MD [address] [facility] [place] [facility] [address] 11/08/2022 Office Visit Family Medicine Yanick Canseco DO [address] [place] [address] 11/21/2022 Cardiac Studies Cardiac Studies 11/28/2022 Office Visit Gastroenterology Patricia Mejia CRNP [address] [place] [address] 12/13/2022 Office Visit Family Medicine Yanick Canseco, [address] [place] [address] 12/22/2022 Office Visit Dermatology Laure Arias PA-C [address] [place] [address] [place] [address] 02/23/2023 Office Visit Dermatology Laure Arias PA-C [address] [facility] [place] [address] 02/27/2023 Office Visit Cardiology Bessy Gill PA-C [address] [place] [address] 03/15/2023 Office Visit Nephrology Ryan Issa MD [address] [facility] [place] [facility] [address] Pending Results Name Type Priority Associated Diagnoses Date /Time TSH WITH FREE T4 IF INDICATED Lab Routine Hypothyroidism due to acquired atrophy of thyroid 10/25/2022 2:42 PM EDT COMPREHENSIVE METABOLIC PANEL Lab Routine Nausea and vomiting, unspecified vomiting type 10/25/2022 2:42 PM EDT CBC WITH WBC DIFFERENTIAL Lab Routine Nausea and vomiting, unspecified vomiting type 10/25/2022 2:42 PM EDT LIPASE Lab Routine Nausea and vomiting, unspecified vomiting type 10/25/2022 2:42 PM EDT CBC Lab Routine Nausea and vomiting, unspecified vomiting type 10/25/2022 2:42 PM EDT DIFFERENTIAL, AUTOMATED Lab Routine Nausea and vomiting, unspecified vomiting type 10/25/2022 2:42 PM EDT Scheduled Orders Name Type Priority Associated Diagnoses Orde r Schedule TSH WITH FREE T4 IF INDICATED Lab Routine Hypothyroidism due to acquired atrophy of thyroid Expected: 10/25/2022 (Approximate), Expires: 10/25/2023 COMPREHENSIVE METABOLIC PANEL Lab Routine Nausea and vomiting, unspecified vomiting type Expected: 10/25/2022 (Approximate), Expires: 10/25/2023 CBC WITH WBC DIFFERENTIAL Lab Routine Nausea and vomiting, unspecified vomiting type Expected: 10/25/2022 (Approximate), Expires: 10/26/2023 LIPASE Lab Routine Nausea and vomiting, unspecified vomiting type Expected: 10/25/2022 (Approximate), Expires: 10/25/2023 EKG EKG Routine Paroxysmal atrial fibrillation (HCC) Ordered: 10/25/2022 Scheduled Procedures Name Priority Associated Diagnoses Date/Ti me ESOPHAGOGASTRODUODENOSCOPY ( EGD), FLEXIBLE, TRANSORAL, DIAGNOSTIC Nausea and vomiting, unspecified vomiting type 10/27/2022 2:30 PM EDT Scheduled Referrals Name Type Priority Associated Diagnoses Orde r Schedule UPPER ENDOSCOPY GI REFERRAL OP Referral Within 3 days (urgent) Nausea and vomiting, unspecified vomiting type Ordered: 10/25/2022 Health Maintenance Due Date Last Done Comments AAA ULTRASOUND YEARLY 09/08/2022 09/08/2021 , 08/23/2021, 08/25/2020, Additional history exists CKD PHOS USE SMARTSET 08422 10/11/202209/16, 03/18/2021, 03/02/2021, Additional history exists GFR 12/11/2022 06/13/2022, 05/19, 05/27/2022, Additional history exists Influenza Vaccine (FLU shot) (#1) 2022 02/03/2022, 03/02/2021, 01/28/2020, Additional history exists CKD HGB USE SMARTSET 90574 06/13/202306/13, 06/13/2022, 06/06/2022, Additional history exists Depression [...] as of this encounter Visit Diagnoses Diagnosis Nausea and vomiting, unspecified vomiting type- Primary Paroxysmal atrial fibrillation (HCC) Atrial fibrillation Atherosclerosis of [place] coronary artery of [place] heart without angina pectoris Hypertensive kidney disease with stage 3b chronic kidney disease (HCC) Moderate to severe aortic insufficiency Gouty arthropathy Gouty arthropathy, unspecified Dyslipidemia, goal LDL below 70 Other and unspecified hyperlipidemia Mild obstructive sleep apnea Obstructive sleep apnea (adult) (pediatric) Neurogenic bladder Neurogenic bladder, NOS Prediabetes Other abnormal glucose Asymptomatic bilateral carotid artery stenosis Occlusion and stenosis of multiple and bilateral precerebral arteries without mention of cerebral infarction Infrarenal abdominal 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 (HCC) Hypothyroidism due to acquired atrophy of thyroid Persistent proteinuria Proteinuria BPH without obstruction/lower urinary tract symptoms Hypertrophy of prostate without urinary obstruction and other lower urinary tract symptoms (LUTS) Disc disorder of lumbar region Other and unspecified disc disorder of lumbar region Nausea and vomiting, unspecified vomiting type documented in this encounter Care Teams Reinforcing Bar Setter Relationship Specialty Start Date End Date Yanick Canseco, [address] [place] [address] PCP - General Internal Medicine 04/07/22 documented as of this encounter
--- OUTSIDE RECORDS SUMMARY | 2023-03-04 16:33 | External Medical Summary ---
Author Name Unknown Address Unknown Organization [id number]:LABORATORY [facility] - [address] [place] [address] Laboratory Report Ordering Provider Test Date Status CULLEN CAPPS 10/25/2022 14:42:21 Final Observation Date Value Abnormality Reference (Units ) Status TSH 10/25/2022 14:42:21 1.39 0.27-4.20 (uIU/mL) Final Performing Location LABORATORY [facility] - [address] [facility] [address]
--- OUTSIDE RECORDS SUMMARY | 2023-03-04 16:33 | External Medical Summary ---
Author Name Unknown Address Unknown Organization K01:[facility] [facility] [address] [address] Laboratory Report Ordering Provider Test Date Status CULLEN CAPPS 10/25/2022 14:42:21 Final Observation Date Value Abnormality Reference (Units ) Status WBC, Total 10/25/2022 14:42:21 6.77 4.00-10.80 (K/uL) Final RBC 10/25/2022 14:42:21 4.38 4.50-5.25 (M/uL) Final Hemoglobin 10/25/2022 14:42:21 15.0 14.0-16.8 (g/dL) Final HCT 10/25/2022 14:42:21 45.9 40.0-48.4 (%) Final MCV 10/25/2022 14:42:21 104.8 82.0-99.5 (fL) Final MCH 10/25/2022 14:42:21 34.2 27.0-34.0 (pg) Final MCHC 10/25/2022 14:42:21 32.7 32.0-36.0 (g/dL) Final RDW 10/25/2022 14:42:21 12.8 11.5-15.5 (%) Final Platelets 10/25/2022 14:42:21 236 140-400 (K/uL) Final MPV 10/25/2022 14:42:21 13.1 6.6-11.1 (fL) Final Nucleated erythrocytes/100 leukocytes [Ratio] in Blood by Automated count 10/25/2022 14:42:21 0 <=0 (/100 WBCs) Final Performing Location [facility] [place] [address] [place] [address]
--- OUTSIDE RECORDS SUMMARY | 2023-03-04 16:33 | External Medical Summary | Summary of Care ---
Author Name Unknown Organization [facility] Address [address] [place] [address] Phone [phone] Care Team Providers Care Medical Affairs Leader Name Role Phone Yanick Canseco DO Primary Care Provider [phone] Reason for Visit * Reason Onset Date Comments Advice 10/24/2022 Encounter Details Date Type Department Care Team Description 10/24/2022 Telephone Family Practice 65 [facility] [address] [place] [phone] Yanick Canseco DO [address] [place] [address] Advice Allergies Active Allergy Reactions Severity Noted [...] Tablet by mouth every evening. 0 Active [place]-3 Fatty Acids (ULTRA OMEGA 3) 952 MG CAPSIndications:Dy slipidemia, goal LDL below 100 One tab twice daily 180 Cap 1 04/19/2018 Active Coenzyme Q10 300 MG Oral Wafer Take 600 mg by mouth once. 0 Active DHEA 50 MG Oral Tablet Take 50 mg by mouth daily. 0 Active Nitroglycerin 0.4 MG Sublingual Tablet Sublingual (Nitrostat)Indicat ions:Atheroscleros is of [place] tribe coronary artery of [place] [...] mouth in the morning. 0 04/19/2022 Active Acidophilus Pearls Oral Capsule Take 1 Capsule by mouth 2 times a day. 0 04/19/2022 Active guaiFENesin ER 600 MG [...] BEDTIME 200 Tablet 3 04/20/2022 4 Active amLODIPine Besylate 2.5 MG Oral Tablet [...] Cyst of kidney, acquired Overview: followed at [place] documented as of this encounter (statuses as [...] 3.4 by CTA 08/09/2012 [employer] Other*[id number] 201005/24/2016 Shortness of breath 02/22/2011 12/08/2016 Aortocoronary [...] Telephone Encounter - Argenis Sauer LPN - 10/24/2022 4:44 PM EDT Has appointment tomorrow. * Telephone Encounter - EMILY Tena - 10/24/2022 4:12 PM EDT Would like to have Argenis call him to discuss several things before his appt Please call him documented in this encounter Plan of Treatment Upcoming Encounters Date Type Specialty Care Team Description 10/25/2022 Office Visit Family Medicine Yanick Canseco, DO [address] [place] [address] 11/04/2022 Office Visit Nephrology Ryan Issa MD [address] [place] [address] 11/21/2022 Cardiac Studies Cardiac Studies 11/28/2022 Office Visit Gastroenterology Patricia Mejia CRNP [address] [place] [address] 12/13/2022 Office Visit Family Medicine Yanick Canseco, [address] [place] [place] [address] 12/22/2022 Office Visit Dermatology Laure Arias PA-C [address] [place] [address] [place] [address] 02/23/2023 Office Visit Dermatology Laure Arias PA-C [address] [place] [address] [place] [address] 02/27/2023 Office Visit Cardiology Bessy Gill PA-C [address] [place] [address] 03/15/2023 Office Visit Nephrology Ryan Issa MD [address] [place] [facility] [place] [address] Health Maintenance Due Date Last Done Comments AAA ULTRASOUND YEARLY 09/08/2022 09/08/2021 , 08/23/2021, 08/25/2020, Additional history exists CKD PHOS USE SMARTSET 22351 10/11/202209/16, 03/18/2021, 03/02/2021, Additional history exists GFR 12/11/2022 06/13/2022, 05/19, 05/27/2022, Additional history exists Influenza Vaccine (FLU shot) (#1) 2022 02/03/2022, 03/02/2021, 01/28/2020, Additional history exists CKD HGB USE SMARTSET 21148 06/13/202306/13, 06/13/2022, 06/06/2022, Additional history exists Depression [...] filedocumented as of this encounter Care Teams Medical Affairs Leader Relationship Specialty Start Date End Date Yanick Canseco, [address] [place] [address] PCP - General Internal Medicine 04/07/22 documented as of this encounter
--- OUTSIDE RECORDS SUMMARY | 2023-03-04 16:33 | External Medical Summary ---
Author Name Unknown Address Unknown Organization K01:[facility] - [address] [place] [address] Laboratory Report Ordering Provider Test Date Status CULLEN CAPPS 10/25/2022 14:42:21 Final Observation Date Value Abnormality Reference (Units ) Status BUN 10/25/2022 14:42:21 21 Above high normal 6-20 (mg/dL) Final Creatinine 10/25/2022 14:42:21 1.3 Above high normal 0.6-1.2 (mg/dL) Final Glomerular filtration rate/1.73 sq M.predicted [Volume Rate/Area] in Serum, Plasma or Blood by Creatinine-based formula (CKD-EPI) 10/25/2022 14:42:21 57 Below low normal >=60 (mL/min) Final eGFR is calculated based on the CKD-EPI 2020 equation SODIUM 10/25/2022 14:42:21 137 135-146 (m mol/L) Final Potassium 10/25/2022 14:42:21 4.6 3.5-5.1 (m mol/L) Final Cl 10/25/2022 14:42:21 104 98-107 (mm ol/L) Final CO2 10/25/2022 14:42:21 24 22-32 (mmo l/L) Final Anion gap 10/25/2022 14:42:21 9 7-15 (mmol /L) Final Glucose 10/25/2022 14:42:21 111 70-120 (mg /dL) Final Albumin 10/25/2022 14:42:21 3.8 3.8-5.0 (g /dL) Final AST (Aspartate aminotransferase) 10/25/2022 14:42:21 19 10-50 (U/L) Final Alk Phos 10/25/2022 14:42:21 52 35-130 (U/ L) Final Bilirubin, Total 10/25/2022 14:42:21 0.5 <=1 .2 (mg/dL) Final Calcium 10/25/2022 14:42:21 9.7 8.4-10.2 ( mg/dL) Final Protein 10/25/2022 14:42:21 6.2 6.0-8.3 (g /dL) Final ALT (Alanine aminotransferase) 10/25/2022 14:42:21 13 10-50 (U/L) Final Performing Location [facility] - [address] [facility] [address]
--- OUTSIDE RECORDS SUMMARY | 2023-03-04 16:33 | External Medical Summary | Summary of Care ---
Author Name Unknown Organization [facility] Address [address] [facility] [place] [address] Phone [phone] Care Team Providers Care Acetylene Torch Burner Name Role Phone Yanick Canseco DO Primary Care Provider [phone] Encounter Details Date Type Department Care Team Description 10/25/2022 Orders Only Gastroenterology, [facility] [address] [place] [address] Ariadne Ornelas DO [address] [place] [address] Nausea and vomiting, unspecified vomiting type* Allergies Active Allergy Reactions Severity Noted [...] Tablet by mouth every evening. 0 Active [place]-3 Fatty Acids (ULTRA OMEGA 3) 952 MG [...] Cyst of kidney, acquired Overview: followed at [place] documented as of this encounter (statuses as [...] 3.4 by CTA 08/09/2012 [employer] [facility] Other*[id number] 201005/24/2016 Shortness of breath 02/22/2011 12/08/2016 Aortocoronary [...] Date Type Specialty Care Team Description 10/27/2022 Procedure Only Endoscopy Ariadne Ornelas DO [address] [place] [address] 11/04/2022 [facility] [address] 11/08/2022 Office Visit [facility] [address] 11/21/2022 Cardiac Studies Cardiac Studies 11/28/2022 Office Visit Gastroenterology Patricia Mejia CRNP [address] [place] [address] 12/13/2022 Office Visit Family Medicine [facility] DO [address] [facility] [address] 12/22/2022 Office Visit Dermatology Laure Arias PA-C [address] [place] [address] [place] [address] 02/23/2023 Office Visit Dermatology Laure Arias PA-C [address] [facility] [place] [address] 02/27/2023 Office Visit Cardiology Bessy Gill PA-C [address] [place] [address] 03/15/2023 Office Visit Nephrology Ryan Issa MD [address] [place] [address] Scheduled Orders Name Type Priority Associated Diagnoses Orde r Schedule EGD, FLEXIBLE, DIAGNOSTIC Procedures Routine Nausea and vomiting, unspecified vomiting type Ordered: 10/25/2022 Health Maintenance Due Date Last Done Comments AAA ULTRASOUND YEARLY 09/08/2022 09/08/2021 , 08/23/2021, 08/25/2020, Additional history exists CKD PHOS USE SMARTSET 84010 10/11/202209/16, 03/18/2021, 03/02/2021, Additional history exists GFR 12/11/2022 06/13/2022, 05/19, 05/27/2022, Additional history exists Influenza Vaccine (FLU shot) (#1) 2022 02/03/2022, 03/02/2021, 01/28/2020, Additional history exists CKD HGB USE SMARTSET 50040 06/13/202306/13, 06/13/2022, 06/06/2022, Additional history exists Depression [...] Nausea and vomiting, unspecified vomiting type- Primary documented in this encounter Care Teams Acetylene Torch Burner Relationship Specialty Start Date End Date Yanick Canseco, [address] [place] [address] PCP - General Internal Medicine 04/07/22 documented as of this encounter
--- OUTSIDE RECORDS SUMMARY | 2023-03-04 16:33 | External Medical Summary | Summary of Care ---
Author Name Unknown Organization [facility] Address [address] [place] [address] Phone [phone] Care Team Providers Care Pharmaceutical Analyst Name Role Phone Yanick Canseco DO Primary Care Provider [phone] Reason for Visit * Reason Comments case management Encounter Details Date Type Department Care Team Description 11/03/2022 Consumer RecruiterPaint Line Supervisor Practice [address] [facility], [address] [place] [address] Pinky French, HECTOR Medical home patient [...] Tablet by mouth every evening. 0 Active [place]-3 Fatty Acids (ULTRA OMEGA 3) 952 MG CAPSIndications:Dy slipidemia, goal LDL below 100 One tab twice daily 180 Cap 1 04/19/2018 Active Coenzyme Q10 300 MG Oral Wafer Take 600 mg by mouth once. 0 Active DHEA 50 MG Oral Tablet Take 50 mg by mouth daily. 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 He was advised not to take his questran for 2 days, then start back at 1/2 or 1 packet daily. ASSESSMENT: PT states that he did hold this. He is going to start back on this tomorrow. He states he did have BM but it was difficult. He also states he still feels full. Pt asked for assistance with his catheters. Per pt he continues to receive only 6 catheters per day. He states he has contacted [facility], and they are still waiting for an update script from pt's urologist office, Dr. No. RECOMMENDATION: CM advised pt to ensure he is drinking enough fluids, especially as the weather hasbeen particularly warm. CM also advised pt to contact this CM if feeling of constipation does not subside or if he is not able to have a BM. CM placed t/c to Dr. No's office. VMM left on nurse call line requesting a return call regarding pt's catheters. Pinky French RN Family Practice [address], [address] [address] documented in this encounter Plan of Treatment Upcoming Encounters Date Type Specialty Care Team Description 11/04/2022 Office Visit Nephrology Ryan Issa MD [address] [place] [address] 11/08/2022 Office Visit Family Medicine Yanick Canseco DO [address] [facility] [place] [address] 11/21/2022 Cardiac Studies Cardiac Studies 11/28/2022 Office Visit Gastroenterology Patricia Mejia CRNP [address] [facility] [place] [address] 12/13/2022 Office Visit Family Medicine Yanick Canseco DO [address] [facility] [place] [address] 12/22/2022 Office Visit Dermatology Laure Arias PA-C [address] [place] [address] [place] [address] 02/23/2023 Office Visit Dermatology Laure Arias PA-C [address] [place] [address] [place] [address] 02/27/2023 Office Visit Cardiology Bessy Gill [facility]-C [address] [facility] [address] 03/15/2023 Office Visit Nephrology Ryan Issa MD [address] [place] [address] Health Maintenance Due Date Last Done Comments CKD PHOS USE SMARTSET 58500 10/11/202209/16, 03/18/2021, 03/02/2021, Additional history exists Influenza Vaccine (FLU shot) (#1) 2022 02/03/2022, 03/02/2021, 01/28/2020, Additional history exists GFR 04/27/2023 10/25/2022, 05/19, 06/06/2022, Additional history exists HbA1c 09/06/2023 09/05/2022, 02/16, 03/02/2021, Additional history exists Albumin/Creatinine Ratio 09/07/2023 023, 09/21/2021, 09/10/2013, Additional history exists CKD HGB USE SMARTSET 56660 10/26/202310/25, 10/25/2022, 06/13/2022, Additional history exists Depression [...] examination documented in this encounter Care Teams Pharmaceutical Analyst Relationship Specialty Start Date End Date Yanick Canseco, DO [address] [facility] [place] [address] PCP - General Internal Medicine 04/07/22 documented as of this encounter
--- OUTSIDE RECORDS SUMMARY | 2023-03-04 16:34 | External Medical Summary | Summary of Care ---
Author Name Unknown Organization [facility] Address [address] [place] [address] Phone [phone] Care Team Providers Care Putty Glazer Name Role Phone Yanick Canseco DO Primary Care Provider [phone] Reason for Visit * Reason Onset Date Comments Information 10/20/2022 Encounter Details Date Type Department Care Team Description 10/20/2022 Insurance Professional Telephone Family Practice [address] [place] [address] [facility] [place] [address] Pinky French, HECTOR Information Allergies Active Allergy Reactions Severity Noted Date Comments Cat Dander 09/25/2014 Dog Dander 09/25/2014 Dust 09/23/2015 Pollen 09/25/2014 Losartan Other (Please comment) 03/02/2021 Hyperkalemia Morphine Nausea/vomiting Low 12/13/2017 Ragweed 09/25/2014 documented as of this encounter (statuses as of 10/20/2022) Medications Medication Sig Dispensed Refills Start Date [...] by mouth every evening. 0 Active [place]-3 Fatty Acids (ULTRA OMEGA 3) 952 MG CAPSIndications:Dy slipidemia, goal LDL below 100 One tab twice daily 180 Cap 1 04/19/2018 Active Coenzyme Q10 300 MG Oral Wafer Take 600 mg by mouth once. 0 Active DHEA 50 MG Oral Tablet Take 50 mg by mouth daily. 0 Active Nitroglycerin 0.4 MG Sublingual Tablet Sublingual (Nitrostat)Indicat ions:Atheroscleros is of [place] coronary artery of [place] shell tribe heart without angina pectoris Place under [...] 2 times a day. 0 04/19/2022 Active amLODIPine Besylate 2.5 MG Oral Tablet (Norvasc) Take 1 Tablet by mouth in the morning. 100 Tablet 3 04/20/2022 Active Apixaban 2.5 MG Oral Tablet (Eliquis) Take 1 Tablet by mouth in the morning and 1 Tablet before bedtime. 200 Tablet 3 04/20/2022 Active Atorvastatin Calcium 20 MG Oral Tablet (Lipitor) Take 1 Tablet by mouth in the morning. 100 Tablet 3 04/20/2022 Active Omeprazole 40 MG Oral Capsule Delayed Release (PriLOSEC)Indicati ons:History of esophageal cancer Take 1 Capsule by mouth in the morning. 1 hour before the first meal of the day. 100 Capsule 3 04/20/2022 Active Levothyroxine Sodium 150 MCG Oral Tablet (Levoxyl) Take 1 Tablet by mouth in the morning. (at least 30 min prior to breakfast or other meds). 100 Tablet 1 05/30/2022 Active guaiFENesin ER 600 MG Oral Tablet Extended Release 12 Hour Take 1 Tablet by mouth 2 times a day as needed for Congestion. 0 06/10/2022 Active Cholestyramine 4 GM Oral Packet (Questran) Take 1 Packet by mouth in the morning. Mixed with liquid.. 90 Packet 3 06/28/2022 Active Carvedilol 12.5 MG Oral Tablet (Coreg)Indications :Atrial fibrillation with RVR (HCC) Take 25 mg in the morning and 12.5 mg in the evening 90 Tablet 5 09/08/2022 Active Allopurinol 100 MG Oral Tablet (Zyloprim)Indicati ons:Gouty arthropathy Take 1 Tablet by mouth in the morning and 1 Tablet before bedtime. 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 Overview: Hastings's esophagus: egd by Dr Grant () f/u EGD 2001- per pt Cyst of kidney, acquired Overview: followed at [place] documented as of this encounter (statuses as of 10/20/2022) Resolved Problems Problem Noted Date Resolved Date [...] 3.4 by CTA 08/09/2012 [employer] [facility] Other*[id number] 201005/24/2016 Shortness of breath 02/22/2011 12/08/2016 Aortocoronary [...] as of this encounter (statuses as of 10/20/2022) Immunizations Name Administration Dates Next Due COVID-19 mRNA, LNP-s, No Pre serve, 2-Dose Series (Moderna) 06/10/2020,05/13/2020 COVID-19, LNP-s, No Preserve , Adiel-sucrose, Ages 12+ (Pfizer) 12/06/2021 Covid-19 Mrna, Lnp-s, No Pre serve, Booster (Moderna) 02/24/2021 Covid-19, Mrna, Lnp-s, Pf, B ivalent, 30 Mcg, IM, 12 yrs and above (c8apps) 04/19/2022 HEP A - Hepatitis A (Adult [...] Telephone Encounter - Argenis Sauer LPN - 10/20/2022 2:43 PM EDT Please add to schedule on 10/25 at [address] Canseco. Pinky, please check on patient on Monday. Will forward to cardiology as fyi. Thank you * Telephone Encounter - Yanick Canseco DO - 10/20/2022 1:53 PM EDT Noted * Telephone Encounter - Pinky French RN - 10/20/2022 11:30 AM EDT SITUATION: Pt called into this CM with concerns about symptoms he has been having BACKGROUND: Pt called into office on 10/11 with similar symptoms. ASSESSMENT: Pt is endorsing shortness of breath, dizziness, general fatigue. He states that his BP was low on 10/11 and he'd called into the clinic for advice on that date. He does not have a BP cuff at home to monitor and he is worried as he was hospitalized in the past for A-Fib. Pt denies chest pain or edema. RECOMMENDATION: Pt to come into PCP office today for nurse visit for BP check. To schedule f/u withPCP or field scout as needed. Pt is agreeable to this. Sent to [facility] to schedule. Pinky French, aqueduct and reservoir keeper [address], [address] [place] [address] documented in this encounter Plan of Treatment Upcoming Encounters Date Type Specialty Care Team Description 11/04/2022 Office Visit Nephrology Ryan Issa MD [address] [place] [address] 11/21/2022 Cardiac Studies Cardiac Studies 11/28/2022 Office Visit Gastroenterology Patricia Mejia CRNP [address] [place] [address] 12/13/2022 Office Visit Family Medicine Yanick Canseco DO [address] [facility] [place] [address] 12/22/2022 Office Visit Dermatology Laure Arias PA-C [address] [place] [address] [place] [address] 02/23/2023 Office Visit Dermatology Laure Arias PA-C [address] [place] [address] [place] [address] 02/27/2023 Office Visit Cardiology Bessy Gill PA-C [address] [place] [address] 03/15/2023 Office Visit Nephrology Ryan Issa MD [address] [place] [address] Health Maintenance Due Date Last Done Comments AAA ULTRASOUND YEARLY 09/08/2022 09/08/2021 , 08/23/2021, 08/25/2020, Additional history exists CKD PHOS USE SMARTSET 69247 10/11/2022 0610/2021, 03/18/2021, 03/02/2021, Additional history exists GFR 12/11/2022 06/13/2022, 05/19, 05/27/2022, Additional history exists Influenza Vaccine (FLU shot) (#1) 2022 02/03/2022, 03/02/2021, 01/28/2020, Additional history exists CKD HGB USE SMARTSET 52799 06/13/202306/13, 06/13/2022, 06/06/2022, Additional history exists Depression [...] examination documented in this encounter Care Teams Putty Glazer Relationship Specialty Start Date End Date Yanick Canseco, [address] [facility] [address] PCP - General Internal Medicine 04/07/22 documented as of this encounter
--- OUTSIDE RECORDS SUMMARY | 2023-03-04 16:34 | External Medical Summary | Continuity of Care Document ---
Author Name Unknown Organization [facility] [address] [facility] [address] Address [address] [id number] Care Team Providers Care Product Development Carpenter Name Role Phone Yanick Canseco Primary Care Physician [phone] [facility] [id number] Date(s): 10/11/22 - 10/11/22 [facility] [address] [facility] [address] C [facility] Specialty Services [address] [address] Encounter Diagnosis Urinary retention with incomplete bladder emptying(Discharge Diagnosis) - 10/11/22 Discharge Disposition: Home or Self Care Attending Physician: KIKA Lopez Sambina Referring Physician: KIKA Lopez Sambina Allergies, Adverse Reactions, Alerts Substance Reaction Severity Status morphine Nausea Mild Active Cats runny nose Active Dogs unknown Active Dust runny nose Active Pollen runny nose Active Ragweed runny nose Active Assessment and Plan Extracted from: Title:Surgery Office Visit Note Author:KIKA Lopez Sambina Date:10/11/22 1.Urinary retention with i ncomplete bladder emptying - Patient surgical incisionsappear to be healing wellpostoperatively. - Patient has noticed "so-so"improvement since havingthe device implanted. I spoke by phone with MedShellie bello,and she plans to contact the patient this week to adjust his programs. I also showed the patienthow to charge his communicatorand plc programmer. - Patient and his are aware to contact the office with any concerns regarding his surgicalincision such as redness, drainage, fevers/chills. Plan for follow-up in Decemberwith Dr. Kaur continue to reassess his symptoms Patient is in agreement with the current plan of care and aware to contact our office in the interim with any questions/concerns, new or worsening symptoms. I spent a total of20 minutes completing the below activities: Activities include:Review of medical record, Obtaining a history, Physical exam/evaluation, Counseling/educating patient/family members, coordinating care, documentation in medical record, independent interpretation of imaging/labs, Communication of results to patient/family/caregiver(s). Medications Acidophilus Probiotic Blend Start: 04/26/22 14:17:00 EST Start Date: 04/26/22 Status: Ordered allopurinol Start: 11/26/21 15:27:00 EDT, 100 mg [...] tab qPM Start Date: 09/20/22 Status: Ordered cholestyramine 4 g/9 g oral powder for reconstitution Start: 10/11/22 11:28:00 EDT, 4 g =, PO, Daily Start Date: 10/11/22 Status: Ordered CoQ10 300 mg oral capsule Start: 11/26/21 15:28:00 EDT, 1 cap, PO, Daily Start Date: 11/26/21 Status: Ordered Cranberry Start: 10/11/22 11:30:00 EDT, 500 mg =, PO, qAM Start Date: 10/11/22 Status: Ordered DHEA 25 mg oral tablet Start: 10/11/22 11:31:00 EDT, 1 tab, PO, Daily Start Date: 10/11/22 Status: Ordered glucosamine 500 mg oral capsule Start: 11/26/21 15:29:00 EDT, 1 cap, PO, Daily Start Date: 11/26/21 Status: Ordered guaiFENesin Start: 10/11/22 11:31:00 EDT, 600 mg =, PO, bid, PRN: as needed for congestion Start Date: 10/11/22 Status: Ordered levothyroxine 150 mcg (0.15 mg) oral tablet Start: 10/11/22 11:28:00 EDT, 1 tab, PO, Daily Start Date: 10/11/22 Status: Ordered multivitamin Start: 11/26/21 15:28:00 EDT, 1 tab, PO, Daily Start Date: 11/26/21 Status: Ordered nitroglycerin Start: 11/26/21 15:24:00 EDT, 0.4 mg =, SL, q5min, PRN: as needed for chest pain Start Date: 11/26/21 Status: Ordered [place]-3 350 mg oral capsule Start: 11/26/21 15:28:00 EDT, 1 cap, PO, Daily Start Date: 11/26/21 Status: Ordered omeprazole Start: 11/26/21 15:25:00 EDT, 40 mg =, PO, Daily Start Date: 11/26/21 Status: Ordered tamsulosin 0.4 mg oral capsule Start: 09/21/22 15:28:00 EDT, 1 cap, PO, Daily, Disp# 30 cap, Pharmacy: [facility] Start Date: 09/21/22 Status: Ordered Tylenol 8 Hour 650 mg oral tablet, extended release Start: 09/28/22 15:41:00 EDT, 2 tab, PO, q8h, Disp# 24 tab, Pharmacy: [facility] [place] [id number] Start Date: 09/28/22 Status: Ordered Vitamin C 1000 mg oral tablet Start: 04/26/22 14:17:00 EST, 1 tab, PO, bid Start Date: 04/26/22 Status: Ordered Vitamin D3 1000 intl units (25 mcg) oral tablet Start: 10/11/22 11:32:00 EDT, 2 tabs, PO, Daily Start Date: 10/11/22 Status: Ordered vitamin E Start: 04/26/22 14:17:00 EST, 400 Int_Unit =, PO, every Monday and Monday Start Date: 04/26/22 Status: Ordered Mental Status 6/27/23 Barriers to Learning one year None evide nt Mandatory Health Literacy Documentation Yes Health Literacy Communication Barriers N ever Primary Language Citizen Of [place] Problem List Condition Confirmation Course Effective Dates [...] Effective Dates Health Status Clinical Service Informant Urinary retention with incomplete bladder emptying Discharge Diagnosis 10/11/22 Procedures Procedure Date Related Diagnosis Body Site [...] oldest [Reference Range]: 1 Temperature [36.5-37.9 DegC] 36.6 DegC (10/11/22 11:33 AM) Heart Rate 87 bpm (10/11/22 11:33 AM) Blood Pressure 117/49mmHg (10/11/22 11:33 AM) Cuff Pulse Pressure 68 mmHg (10/11/22 11:33 AM) Social History Social History Type Response Smoking [...] Safety Implantable Status Assigning Authority Unknown Unknown [id number] Unknown 01/05/24 Unknown Unknown Active Unk nown Urology Outpatient Note * KIKA Lopez Sambina: PERFORM Event Display: Urology Outpt Note Authored Date: [id number] Primary Care Provider Sulman, DO, Yanick A Chief Complaint follow up s/p stage II sacral neurostimulator Med[employer] implantationon 09/28/[address] Ramsay History of Present Illness I saw Mr. Esquivel and his wifefor follow-up today at the [facility] outpatient clinic. He is 82-year-old gentlemanwho [...] concerns including drainage,tenderness, erythema, fevers or chills. Review of Systems 14 point review of systems performed, positive for what is mentioned in the HPI, otherwise negative. Physical Exam Vitals & Measurements T:36.6C HR:87(Monitored) BP:117/49 General: Awake, alert, NAD HEENT: Oral mucosa pink and moist Pulmonary: Respirations symmetric and non labored Cardiovascular: No JVD bilaterally Abdomen: Non distended Extremities: Symmetric and well perfused Musculoskeletal: Normal independent ambulation Psychiatric: Normal mood and affect. Appropriate response to questioning. Skin: Warm and dry. Surgical incisions are clean dry and well approximated with no erythema, tenderness, edema or drainage. Hematologic: No obvious bruising or bleeding. : Deferred today. Assessment/Plan 1.Urinary retention with incomplete bladder emptying - Patient surgical incisionsappear to be healing wellpostoperatively. - Patient has noticed "so-so"improvement since havingthe device implanted. I spoke by phonewith [employer] Systemstronic Shellie jules,and she plans to contact the patient this week to adjust his programs. I also showed the patienthow to charge his communicatorand plc programmer. - Patient and his are aware to contact the office with any concerns regarding his surgicalincision such as redness, drainage, fevers/chills. Plan for follow-up in Decemberwith Dr. Kaur continue to reassess his symptoms Patient is in agreement with the current plan of care and aware to contact our office in the interim with any questions/concerns, new or worsening symptoms. I spent a total of20 minutes completing the below activities: Activities include:Review of medical record, Obtaining a history, Physical exam/evaluation, Counseling/educating patient/family members, coordinating care, documentation in medical record, independent interpretation of imaging/labs, Communication of results to patient/family/caregiver(s). Problem List/Past Medical History Ongoing BPH with [...] mg, SL, q5min, PRN omega-3 polyunsaturated fatty acids([place]-3 350 mg oral capsule), 350 mg= 1 [...] Status Former Smoker, quit > 1 yr Recommendations Health Maintenance Pending(in the next year) OverDue Adult Influenza Vaccine due10/15/21and every 1year Due Adult COVID-19 Vaccination due10/11/22Unknown Frequency Adult Tdap/Td Vaccine due10/11/22Unknown Frequency Medicare Annual Wellness Visit due10/11/22and every 1year Pneumococcal Vaccine Older Adults due10/11/22One-time only Shingles Vaccine due10/11/22One-time only Due In Future Body Mass Index not due until12/13/22and every 1year Satisfied(in the past 1 year) Satisfied Body Mass Index on09/28/22.Satisfied by MICKEY Mueller Kishia R Electronic Signature on File Electronically Reviewed/Signed by: KIKA Chacko Author Signature Dt/Tm:10/11/2022 03:08 PM Urology SR Patient Care team information Care Team Personnel Name: DO Canseco Scott A Position: Referring DIRECT Member Role: Primary Care Provider Address: Address: [address] [place] [address] Care Team Related Persons Name: DEWEY ESQUIVEL Address: home [address] [place] [phone]
--- OUTSIDE RECORDS SUMMARY | 2023-03-04 16:34 | External Medical Summary | Summary of Care ---
Author Name Unknown Organization [facility] Address [address] [place] [address] Phone [phone] Care Team Providers Care Administrative Assistant Receptionist Name Role Phone Yanick Canseco DO Primary Care Provider [phone] Reason for Visit * Reason Onset Date Comments Information 10/20/2022 Encounter Details Date Type Department Care Team Description 10/20/2022 Equal Opportunity Representative Telephone Family Practice [address], [place] [address] [place] [address] Pinky French, HECTOR Information Allergies Active [...] Tablet by mouth every evening. 0 Active [place]-3 Fatty Acids (ULTRA OMEGA 3) 952 MG CAPSIndications:Dy slipidemia, goal LDL below 100 One tab twice daily 180 Cap 1 04/19/2018 Active Coenzyme Q10 300 MG Oral Wafer Take 600 mg by mouth once. 0 Active DHEA 50 MG Oral Tablet Take 50 mg by mouth daily. 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 To schedule f/u withPCP or attending anesthesiologist as needed. Pt is agreeable to this. Sent to EMILY to schedule. Pinky French RN Family Practice [address] [place] [address] documented in this encounter Plan of Treatment Upcoming Encounters Date Type Specialty Care Team Description 11/04/2022 Office Visit Nephrology Ryan Issa MD 200 [facility], [place] [id number] 11/21/2022 Cardiac Studies Cardiac Studies 11/28/2022 Office Visit Gastroenterology SebPatricia hanson CRNP [address] [place] [address] 12/13/2022 Office Visit Family Medicine Yanick Canseco DO [address] [facility] [place] [address] 12/22/2022 Office Visit Dermatology Laure Arias PA-C [address] [place] [address] [place] [address] 02/23/2023 Office Visit Dermatology Laure Arias PA-C [address] [place] [address] [place] [address] 02/27/2023 Office Visit Cardiology Bessy Gill PA-C [address] [place] [address] 03/15/2023 Office Visit Nephrology Ryan Issa MD [address] [place] [place] [address] Health Maintenance Due Date Last Done Comments AAA ULTRASOUND YEARLY 09/08/2022 09/08/2021 , 08/23/2021, 08/25/2020, Additional history exists CKD PHOS USE SMARTSET 49495 10/11/202209/16, 03/18/2021, 03/02/2021, Additional history exists GFR 12/11/2022 06/13/2022, 05/19, 05/27/2022, Additional history exists Influenza Vaccine (FLU shot) (#1) 2022 02/03/2022, 03/02/2021, 01/28/2020, Additional history exists CKD HGB USE SMARTSET 27872 06/13/202306/13, 06/13/2022, 06/06/2022, Additional history exists Depression [...] examination documented in this encounter Care Teams Administrative Assistant Receptionist Relationship Specialty Start Date End Date Yanick Canseco, [address] [place] [address] PCP - General Internal Medicine 04/07/22 documented as of this encounter
--- OUTSIDE RECORDS SUMMARY | 2023-03-04 16:34 | External Medical Summary | Summary of Care ---
Author Name Unknown Organization [facility] Address [address] [place] [address] Phone [phone] Care Team Providers Care Splitter Head Name Role Phone Génesis Canseco DO Primary Care Provider [phone] Reason for Visit * Reason Onset Date Comments Medication Refill 10/10/2022 Refill - phone request Encounter Details Date Type Department Care Team Description 10/10/2022 Refill Family Practice 65 [facility] [address] [place] [address] Génesis Canseco DO [address] [place] [address] Gouty arthropathy Allergies Active Allergy Reactions Severity Noted Date Comments Cat Dander 09/25/2014 Dog Dander 09/25/2014 Dust 09/23/2015 Pollen 09/25/2014 Losartan Other (Please comment) 03/02/2021 Hyperkalemia Morphine Nausea/vomiting Low 12/13/2017 Ragweed 09/25/2014 documented as of this encounter (statuses as of 10/10/2022) Medications Medication Sig Dispensed Refills Start Date [...] Tablet by mouth every evening. 0 Active [place]-3 Fatty Acids (ULTRA OMEGA 3) 952 MG CAPSIndications:D yslipidemia, goal LDL below 100 One tab twice daily 180 Cap 1 04/19/2018 Active Coenzyme Q10 300 MG Oral Wafer Take 600 mg by mouth once. 0 Active DHEA 50 MG Oral Tablet Take 50 mg by mouth daily. 0 Active Nitroglycerin 0.4 MG Sublingual Tablet Sublingual (Nitrostat)Indica tions:Atheroscler osis of [place] coronary artery of [place] heart without angina pectoris Place under the [...] 06/28/2022 Active Carvedilol 12.5 MG Oral Tablet (Coreg)Indication s:Atrial fibrillation with RVR (HCC) Take 25 mg in the morning and 12.5 mg in the evening 90 Tablet 5 09/08/2022 Active Allopurinol 100 MG Oral Tablet (Zyloprim)Indicat ions:Gouty arthropathy Take 1 Tablet by mouth in the morning and 1 Tablet before bedtime. 200 Tablet 3 10/10/2022 Active Allopurinol 100 MG Oral Tablet (Zyloprim)Indicat ions:Gouty arthropathy Take 1 Tablet by mouth in the morning and 1 Tablet before bedtime. 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 Overview: Hastings's esophagus: egd by Dr Grant () f/u EGD 2001- neg per pt Cyst of kidney, acquired Overview: followed at [place] documented as of this encounter (statuses as of 10/10/2022) Resolved Problems Problem Noted Date Resolved Date [...] 3.4 by CTA 08/09/2012 [employer] Other*[id number] 201005/24/2016 Shortness of breath 02/22/2011 12/08/2016 Aortocoronary [...] as of this encounter (statuses as of 10/10/2022) Immunizations Name Administration Dates Next Due COVID-19 mRNA, LNP-s, No Pre serve, 2-Dose Series (Moderna) 06/10/2020,05/13/2020 COVID-19, LNP-s, No Preserve , Adiel-sucrose, Ages 12+ (Pfizer) 12/06/2021 Covid-19 Mrna, Lnp-s, No Pre serve, Booster (Moderna) 02/24/2021 Covid-19, Mrna, Lnp-s, Pf, B ivalent, 30 Mcg, IM, 12 yrs and above ([email or web address]) 04/19/2022 HEP A - Hepatitis A (Adult [...] encounter Miscellaneous Notes * Telephone Encounter - Génesis Canseco DO - 10/10/2022 11:07 AM EDTSigned Prescriptions: Disp Refills Allopurinol 100 MG Oral Tablet (Zyloprim) 200 Ta*3 Sig: Take 1 Tablet by mouth in the morning and 1 Tablet before bedtime.Authorizing Provider: GÉNESIS CANSECO------ * Telephone Encounter - Argenis Sauer LPN - 10/10/2022 9:14 AM EDTPending Prescriptions: Disp Refills Allopurinol 100 MG Oral Tablet (Zyloprim) 200 Ta*3 Sig: Take 1 Tablet by mouth in the morning and 1 Tablet before bedtime. * Telephone Encounter - Celinaandry Malloy, EMILY - 10/10/2022 9:03 AM EDT Pt calling in to request a refill: Pending Prescriptions: Disp Refills Allopurinol 100 MG Oral Tablet (Zyloprim) 200 Ta*3 Sig: Take 1 Tablet by mouth in the morning and 1 Tablet before bedtime. Last Visit: 09/05/2022 (in office), Visit date not found (telemedicine) Next Visit: 12/13/2022 Last date the medication was ordered: 04/20/2022 Patient Active Problem List Diagnosis Code Other allergic rhinitis J30.89 Hastings's esophagus with high grade dysplasia K22.711 Cyst of kidney, acquired N28.1 BPH without obstruction/lower urinary tract symptoms N40.0 History of coronary artery bypass graft Z95.1 Coronary atherosclerosis of [place] coronary artery I25.10 Gouty arthropathy M10.9 Disc [...] 1.1 06/19/1996 09:00 AM CREATININE - [facility] 1.5 (H) 06/13/2022 12:29 PM CREATININE - [facility] 1.5 (H) 02/19/2020 11:37 AM CREATININE, RANDOM URINE - [facility] 81 09/06/2022 11:30 AM CREATININE, RANDOM URINE - [facility] 105 04/04/2017 08:11 AM CREATININE-OUTSIDE LAB 1.18 08/07/2018 12:00 AM Lab Results Component Value Date/Time POTASSIUM 4.4 06/19/1996 09:00 AM POTASSIUM - [facility] 4.8 06/13/2022 12:29 PM POTASSIUM - [facility] 5.0 02/21/2020 12:20 PM POTASSIUM-OUTSIDE LAB 4.4 08/07/2018 12:00 AM Lab Results Component Value Date/Time TSH - [facility] 2.66 09/05/2022 10:57 AM TSH - [facility] 2.03 04/21/2020 10:27 AM [...] (L) 06/19/1996 09:00 AM ALT - [facility] 19 09/05/2022 10:57 AM ALT - [facility] 14 12/02/2019 03:00 PM [...] Nephrology Ryan Issa MD [address] [place] [address] 11/21/2022 Cardiac Studies Cardiac Studies 11/28/2022 Office Visit Gastroenterology Patricia Mejia CRNP [address] [place] [address] 12/13/2022 Office Visit Family Medicine G[facility]nesis Canseco, [facility] [address] 12/22/2022 Office Visit Dermatology Laure Arias PA-C [address] [place] [address] [place] [address] 02/23/2023 Office Visit Dermatology Laure Arias PA-C [address] [place] [address] [place] [address] 02/27/2023 Office Visit Cardiology Bessy Gill PA-C [address] [place] [address] 03/15/2023 Office Visit Nephrology Ryan Issa MD [address] [place] [address] Health Maintenance Due Date Last Done Comments AAA ULTRASOUND YEARLY 09/08/2022 09/08/2021 , 08/23/2021, 08/25/2020, Additional history exists CKD PHOS USE SMARTSET 14574 10/11/202209/16, 03/18/2021, 03/02/2021, Additional history exists GFR 12/11/2022 06/13/2022, 05/19, 05/27/2022, Additional history exists CKD HGB USE SMARTSET 71026 06/13/202306/13, 06/13/2022, 06/06/2022, Additional history exists Depression [...] 02/06/2012 Influenza Vaccine (FLU shot) Completed , 03/02/2021, 01/28/2020, Additional history exists COVID-19 Vaccine Completed 04/19/2022, , 02/24/2021, Additional [...] unspecified documented in this encounter Care Teams Splitter Head Relationship Specialty Start Date End Date Génesis Canseco, DO [address] [place] [address] PCP - General Internal Medicine 04/07/22 documented as of this encounter
--- OUTSIDE RECORDS SUMMARY | 2023-03-04 16:34 | External Medical Summary | Summary of Care ---
Author Name Unknown Organization [facility] Address [address] [place] [address] Phone [phone] Care Team Providers Care Popcorn Attendant Name Role Phone Yanick Canseco DO Primary Care Provider [phone] Encounter Details Date Type Department Care Team Description 10/11/2022 Telephone Family Practice 65 [facility] [address] [place] [address] Yanick Canseco DO [address] [place] [address] Allergies Active Allergy Reactions Severity Noted Date Comments Cat Dander 09/25/2014 Dog Dander 09/25/2014 Dust 09/23/2015 Pollen 09/25/2014 Losartan Other (Please comment) 03/02/2021 Hyperkalemia Morphine Nausea/vomiting Low 12/13/2017 Ragweed 09/25/2014 documented as of this encounter (statuses as of 10/11/2022) Medications Medication Sig Dispensed Refills Start Date [...] Tablet by mouth every evening. 0 Active [place]-3 Fatty Acids (ULTRA OMEGA 3) 952 MG [...] as of this encounter (statuses as of 10/11/2022) Active Problems Problem Noted Date Infrarenal abdominal [...] Cyst of kidney, acquired Overview: followed at [place] documented as of this encounter (statuses as of 10/11/2022) Resolved Problems Problem Noted Date Resolved Date [...] 3.4 by CTA 08/09/2012 [employer] Other*[id number] 201005/24/2016 Shortness of breath 02/22/2011 12/08/2016 Aortocoronary [...] as of this encounter (statuses as of 10/11/2022) Immunizations Name Administration Dates Next Due COVID-19 mRNA, LNP-s, No Pre serve, 2-Dose Series (Moderna) 06/10/2020,05/13/2020 COVID-19, LNP-s, No Preserve , Adiel-sucrose, Ages 12+ (Pfizer) 12/06/2021 Covid-19 Mrna, Lnp-s, No Pre serve, Booster (Moderna) 02/24/2021 Covid-19, Mrna, Lnp-s, Pf, B ivalent, 30 Mcg, IM, 12 yrs and above ([facility]) 04/19/2022 HEP A - Hepatitis A (Adult [...] Telephone Encounter - Yanick Canseco DO - 10/11/2022 1:04 PM EDT BP is good. No changes. * Telephone Encounter - Argenis Sauer LPN - 10/11/2022 12:55 PM EDT Patient is currently in [facility] at urology appointment as a follow up from his surgery. bp is currently 117/49 and then it is 124/45. Provider that see patient commented on low blood pressure. Patient states he is feeling fine without problems. States that he did drink some fluids and feels fine today. bp was checked today via machine. Patient states he was looking for direction as to if he can drive home. Advised ok to drive home if problems veneer puller and call ems. documented in this encounter Plan of Treatment Upcoming Encounters Date Type Specialty Care Team Description 11/04/2022 Office Visit Nephrology [facility] [place] [address] 11/21/2022 Cardiac Studies Cardiac Studies 11/28/2022 Office Visit Gastroenterology Patricia Mejia CRNP [address] [place] [address] 12/13/2022 Office Visit Family Medicine Yanick Canseco DO [address] [place] [address] 12/22/2022 Office Visit Dermatology Laure Arias PA-C [address] [facility] [place] [address] 02/23/2023 Office Visit Dermatology Laure Arias PA-C [address] [facility] [place] [phone] 02/27/2023 Office Visit Cardiology Bessy Gill PA-C [address] [place] [address] 03/15/2023 Office Visit Nephrology [facility] MD [address] [facility] [address] Health Maintenance Due Date Last Done Comments AAA ULTRASOUND YEARLY 09/08/2022 09/08/2021 , 08/23/2021, 08/25/2020, Additional history exists CKD PHOS USE SMARTSET 15767 10/11/202209/16, 03/18/2021, 03/02/2021, Additional history exists GFR 12/11/2022 06/13/2022, 05/19, 05/27/2022, Additional history exists CKD HGB USE SMARTSET 72266 06/13/202306/13, 06/13/2022, 06/06/2022, Additional history exists Depression [...] filedocumented as of this encounter Care Teams Popcorn Attendant Relationship Specialty Start Date End Date Yanick Canseco, 293 [place] [address] PCP - General Internal Medicine 04/07/22 documented as of this encounter
--- OUTSIDE RECORDS SUMMARY | 2023-03-04 16:34 | External Medical Summary | Summary of Care ---
Author Name Unknown Organization [facility] Address [address] [place] [address] Phone [phone] Care Team Providers Care Auto Leasing Manager Name Role Phone Yanick Canseco DO Primary Care Provider [phone] Encounter Details Date Type Department Care Team Description 10/20/2022 Nurse Only Family Practice 65 [facility] [address] [place] [id number] College, Nurse [facility] Prac [address] [address] Allergies Active Allergy Reactions Severity [...] Tablet by mouth every evening. 0 Active [place]-3 Fatty Acids (ULTRA OMEGA 3) 952 MG CAPSIndications:Dy slipidemia, goal LDL below 100 One tab twice daily 180 Cap 1 04/19/2018 Active Coenzyme Q10 300 MG Oral Wafer Take 600 mg by mouth once. 0 Active DHEA 50 MG Oral Tablet Take 50 mg by mouth daily. 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 States symptoms have been about two weeks. Denies chest pain, some sob with exertion with walking up steps, denies any edema Thank you Scheduled Monday with DR Canseco. Asking vocational case manager to follow up Monday. Advised patient to stay out of heat, stay hydrated and to call if problems. Thank you documented in this encounter Plan of Treatment Upcoming Encounters Date Type Specialty Care Team Description 10/25/2022 Office Visit Family Medicine Yanick Canseco, [address] [place] [address] 11/04/2022 Office Visit Nephrology Ryan Issa MD 200 [facility] [place] [address] 11/21/2022 Cardiac Studies Cardiac Studies 11/28/2022 Office Visit Gastroenterology Patricia Mejia CRNP [address] [place] [address] 12/13/2022 Office Visit Family Medicine Yanick Canseco, [address] [place] [address] 12/22/2022 Office Visit Dermatology Laure Arias PA-C [address] [place] [address] [place] [address] 02/23/2023 Office Visit Dermatology Laure Arias PA-C 210 [facility] [place] [address] 02/27/2023 Office Visit Cardiology Bessy Gill PA-C [address] [place] [address] 03/15/2023 Office Visit Nephrology Ryan Issa MD [address] [place] [place] [address] Health Maintenance Due Date Last Done Comments AAA ULTRASOUND YEARLY 09/08/2022 09/08/2021 , 08/23/2021, 08/25/2020, Additional history exists CKD PHOS USE SMARTSET 42068 10/11/202209/16, 03/18/2021, 03/02/2021, Additional history exists GFR 12/11/2022 06/13/2022, 05/19, 05/27/2022, Additional history exists Influenza Vaccine (FLU shot) (#1) 2022 02/03/2022, 03/02/2021, 01/28/2020, Additional history exists CKD HGB USE SMARTSET 98878 06/13/202306/13, 06/13/2022, 06/06/2022, Additional history exists Depression [...] filedocumented as of this encounter Care Teams Auto Leasing Manager Relationship Specialty Start Date End Date Yanick Canseco, [address] [facility] [place] [address] PCP - General Internal Medicine 04/07/22 documented as of this encounter
--- OUTSIDE RECORDS SUMMARY | 2023-03-04 16:34 | External Medical Summary | Summary of Care ---
Author Name Unknown Organization [facility] Address [address] [place] [address] Phone [phone] Care Team Providers Care Nail Kegger Name Role Phone Yanick Canseco DO Primary Care Provider [phone] Reason for Visit * Reason Onset Date Comments Information 10/20/2022 Encounter Details Date Type Department Care Team Description 10/20/2022 Head Porter Baggage Telephone Family Practice [address] [place] 293 [place] [address] Pinky French, HECTOR Information Allergies Active [...] Tablet by mouth every evening. 0 Active [place]-3 Fatty Acids (ULTRA OMEGA 3) 952 MG CAPSIndications:Dy slipidemia, goal LDL below 100 One tab twice daily 180 Cap 1 04/19/2018 Active Coenzyme Q10 300 MG Oral Wafer Take 600 mg by mouth once. 0 Active DHEA 50 MG Oral Tablet Take 50 mg by mouth daily. 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 Canseco's schedule * Telephone Encounter - Argenis Sauer LPN [...] BP check. To schedule f/u withPCP or patient care director as needed. Pt is agreeable to this. Sent to EMILY to schedule. Pinky French program manager environmental planning 65 [facility] 293 [facility] [phone] documented in this encounter Plan of Treatment Upcoming Encounters Date Type Specialty Care Team Description 10/25/2022 Office Visit Family Medicine Yanick Canseco, DO [address] [place] [address] 11/04/2022 Office Visit Nephrology Ryan Issa MD 200 [place] [address] 11/21/2022 Cardiac Studies Cardiac Studies 11/28/2022 Office Visit Gastroenterology Patricia Mejia CRNP [address] [place] [address] 12/13/2022 Office Visit Family Medicine Yanick Canseco, DO [address] [place] [address] 12/22/2022 Office Visit Dermatology Laure Arias PA-C [address] [place] [address] [place] [address] 02/23/2023 Office Visit Dermatology Laure Arias PA-C [address] [place] [address] [place] [address] 02/27/2023 Office Visit Cardiology Bessy Gill PA-C [address] [place] [address] 03/15/2023 Office Visit Nephrology Ryan Issa MD 200 [facility] [place] [address] Health Maintenance Due Date Last Done Comments AAA ULTRASOUND YEARLY 09/08/2022 09/08/2021 , 08/23/2021, 08/25/2020, Additional history exists CKD PHOS USE SMARTSET 45620 10/11/202209/16, 03/18/2021, 03/02/2021, Additional history exists GFR 12/11/2022 06/13/2022, 05/19, 05/27/2022, Additional history exists Influenza Vaccine (FLU shot) (#1) 2022 02/03/2022, 03/02/2021, 01/28/2020, Additional history exists CKD HGB USE SMARTSET 17015 06/13/202306/13, 06/13/2022, 06/06/2022, Additional history exists Depression [...] examination documented in this encounter Care Teams Nail Kegger Relationship Specialty Start Date End Date Yanick Canseco, [address] [place] [address] PCP - General Internal Medicine 04/07/22 documented as of this encounter
--- OUTSIDE RECORDS SUMMARY | 2023-03-04 16:35 | External Medical Summary | Summary of Care ---
Author Name Unknown Organization [facility] Address [address] [facility] [place] [address] Phone [phone] Care Team Providers Care Orthopedic Radiologic Technologist Name Role Phone Yanick Canseco DO Primary Care Provider [phone] Reason for Visit * Reason Onset Date Comments Pre-op Clearance 09/02/2022 Encounter Details Date Type Department Care Team Description 09/02/2022 Telephone Cardiology, [facility] [address] [place] [address] Erwin Weiner MD [address] [place] [address] Pre-op Clearance Allergies Active Allergy Reactions Severity Noted Date Comments Cat Dander 09/25/2014 Dog Dander 09/25/2014 Dust 09/23/2015 Pollen 09/25/2014 Losartan Other (Please comment) 03/02/2021 Hyperkalemia Morphine Nausea/vomiting Low 12/13/2017 Ragweed 09/25/2014 documented as of this encounter (statuses as of 09/16/2022) Medications Medication Sig Dispensed Refills Start Date [...] Tablet by mouth every evening. 0 Active [place]-3 Fatty Acids (ULTRA OMEGA 3) 952 MG CAPSIndications:D yslipidemia, goal LDL below 100 One tab twice daily 180 Cap 1 04/19/2018 Active Coenzyme Q10 300 MG Oral Wafer Take 600 mg by mouth once. 0 Active DHEA 50 MG Oral Tablet Take 50 mg by mouth daily. 0 Active Nitroglycerin 0.4 MG Sublingual Tablet Sublingual (Nitrostat)Indica tions:Atheroscler osis of [place] coronary artery of [place] heart without angina pectoris Place under the [...] 2 times a day. 0 04/19/2022 Active Allopurinol 100 MG Oral Tablet (Zyloprim)Indicat ions:Gouty arthropathy Take 1 Tablet by mouth in the morning and 1 Tablet before bedtime. 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 Overview: Hastings's esophagus: egd by Dr Grant () f/u EGD 2001- per pt Cyst of kidney, acquired Overview: followed at [place] documented as of this encounter (statuses as of 09/16/2022) Resolved Problems Problem Noted Date Resolved Date [...] 3.4 by CTA 08/09/2012 [employer] Other*[id number] 201005/24/2016 Shortness of breath 02/22/2011 12/08/2016 Aortocoronary [...] as of this encounter (statuses as of 09/16/2022) Immunizations Name Administration Dates Next Due COVID-19 [...] Former Cigarettes 1 20 Q uit: 04/17/1982 Smokeless Tobacco: Never Comments:no passive smoke Alcohol [...] encounter Miscellaneous Notes * Telephone Encounter - Rodolfo Valladares RN - 09/16/2022 9:00 AM EDT Records faxed with note from Dr. Weiner to Sandrine at [facility]. . * Telephone Encounter - Archana Herndon CMA - 09/13/2022 4:23 PM EDT Sandrine called from [facility] General Surgery/Urology. Surgeon will not accept risk assessment from midlevel and is requesting statement from physician aswell signature. * Telephone Encounter - Manju Gotti LPN - 09/05/2022 1:05 PM EDT Faxed to [facility] per request. * Telephone Encounter - Bessy Gill PA-C - 09/05/2022 12:13 PM EDT Chart reviewed. Patient evaluated by Dr. Weiner 08/19/22. At that time, patient was doing well and well compensated from a cardiac standpoint. His current issues include: 1. 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 -At time of visit on 08/19, patient was euvolemic without CHF signs/symptoms. 3 History of mild aortic enlargement without change 4. Paroxysmal atrial fibrillation now with persistent atrial fibrillation/ flutter with good rate control and anticoagulation 5. 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 Given the fact he was euvolemic and without complaints, further cardiac testing is not warranted prior to planned procedures. He is in persistent afib, rates controlled. Acceptable to hold Eliquis for 3 days, however patient should understand this will increase his stroke risk during this time. Resume Eliquis after procedure when acceptable from bleeding risk standpoint. Aspirin 81 mg daily and carvedilol should be continue without interruption. Bessy Gill PA-C Department of Cardiology Please see full note of August 19, 2022 as well as full assessment as above. No cardiac contraindications to proceeding with surgical plans as indicated. Anticoagulation issues as noted Eliquis will need to be held for procedure and resumed when safe from surgical standpoint postprocedure. Note full anticoagulation will occur within 1-1/2 hours after initiation of Eliquis Erwin Weiner MD * Telephone Encounter - Archana Herndon CMA - 09/02/2022 2:08 PM EDT Fax received from [facility] General Surgery/Urology. Patient is scheduled for Stage I & Stage II neuro-stimulator implant under local and MAC anesthesia. Patient is currently scheduled for 09/21/22 & 09/28/22. Requesting cardiac risk assessment for surgery. Patient last seen in clinic 08/19/22. Also requesting patient to stop Eliquis for 3 days prior to implants. Please advise. Nursing - once done, please fax encounter, last office visit note, and most recent EKG. (f): documented in this encounter Plan of Treatment Upcoming Encounters Date Type Specialty Care Team Description 09/26/2022 Office Visit Orthopedics Justin Lombardi MD [address] [facility] [place] [address] 09/27/2022 Office Visit Dermatology Laure Arias PA-C [address] [place] [address] [place] [address] 11/04/2022 Office Visit Nephrology Ryan Issa MD [address] [place] [address] 11/21/2022 Cardiac Studies Cardiac Studies 11/28/2022 Office Visit Gastroenterology Patricia Mejia CRNP [address] [place] [address] 01/06/2023 Office Visit Family Medicine Yanick Canseco, [address] [place] [address] 02/23/2023 Office Visit Dermatology Laure Arias PA-C [address] [place] [address] [place] [address] 02/27/2023 Office Visit Cardiology Bessy Gill PA-C [address] [place] [address] 03/15/2023 Office Visit Nephrology Ryan Issa MD [address] [place] [address] Health Maintenance Due Date Last Done Comments AAA ULTRASOUND YEARLY 09/08/2022 09/08/2021 , 08/23/2021, 08/25/2020, Additional history exists CKD PHOS USE SMARTSET 92195 10/11/202209/16, 03/18/2021, 03/02/2021, Additional history exists GFR 12/11/2022 06/13/2022, 05/19, 05/27/2022, Additional history exists CKD HGB USE SMARTSET 50427 06/13/202306/13, 06/13/2022, 06/06/2022, Additional history exists Depression [...] filedocumented as of this encounter Care Teams Orthopedic Radiologic Technologist Relationship Specialty Start Date End Date Yanick Canseco, [address] [place] [address] PCP - General Internal Medicine 04/07/22 documented as of this encounter
--- OUTSIDE RECORDS SUMMARY | 2023-03-04 16:35 | External Medical Summary | Summary of Care ---
Author Name Unknown Organization [facility] Address [address] [facility] [place] [address] Phone [phone] Care Team Providers Care Immigration Guard Name Role Phone Yanick Canseco DO Primary Care Provider [phone] Reason for Visit * Reason Onset Date Comments Information 09/15/2022 Encounter Details Date Type Department Care Team Description 09/15/2022 Telephone Cardiology, [facility] [address] [place] [address] Erwin Weiner MD [address] [place] [id number] Information Allergies Active Allergy Reactions Severity Noted [...] Tablet by mouth every evening. 0 Active [place]-3 Fatty Acids (ULTRA OMEGA 3) 952 MG CAPSIndications:Dy slipidemia, goal LDL below 100 One tab twice daily 180 Cap 1 04/19/2018 Active Coenzyme Q10 300 MG Oral Wafer Take 600 mg by mouth once. 0 Active DHEA 50 MG Oral Tablet Take 50 mg by mouth daily. 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 Lopez in regards to when he possible went into a-fib. OV notes from 02/16/2022 from Hans Reynoso faxed. * Telephone Encounter - EMILY Solorzano - 09/15/2022 4:08 PM EDT Good evening, Pt calling in to find out information on his afib and he would like something mailed to him regarding date of onset, when treatment was started, types of treatment etc. Pt would also like to be contacted by phone. Thanks documented in this encounter Plan of Treatment Upcoming Encounters Date Type Specialty Care Team Description 09/26/2022 Office Visit Orthopedics Justin Lombardi MD [address] [place] [address] 09/27/2022 Office Visit Dermatology Laure Arias PA-C [address] [place] [address] [place] [address] 11/04/2022 Office Visit Nephrology Ryan Issa MD [facility] [place] [address] 11/21/2022 Cardiac Studies Cardiac Studies 11/28/2022 Office Visit Gastroenterology Patricia Mejia CRNP [address] [place] [address] 01/06/2023 Office Visit Family Medicine Yainck Canseco, [address] [place] [address] 02/23/2023 Office Visit Dermatology Laure Arias PA-C [address] [place] [address] [place] [address] 02/27/2023 Office Visit Cardiology Bessy Gill PA-C [address] [place] [address] 03/15/2023 Office Visit Nephrology [facility] [address] [facility] [address] Health Maintenance Due Date Last Done Comments AAA ULTRASOUND YEARLY 09/08/2022 09/08/2021 , 08/23/2021, 08/25/2020, Additional history exists CKD PHOS USE SMARTSET 54223 10/11/202209/16, 03/18/2021, 03/02/2021, Additional history exists GFR 12/11/2022 06/13/2022, 05/19, 05/27/2022, Additional history exists CKD HGB USE SMARTSET 39059 06/13/202306/13, 06/13/2022, 06/06/2022, Additional history exists Depression [...] filedocumented as of this encounter Care Teams Immigration Guard Relationship Specialty Start Date End Date Yanick Canseco, [address] [place] [address] PCP - General Internal Medicine 04/07/22 documented as of this encounter
--- OUTSIDE RECORDS SUMMARY | 2023-03-04 16:35 | External Medical Summary | Summary of Care ---
Author Name Unknown Organization [facility] Address [address] [place] [address] Phone [phone] Care Team Providers Care Diesel Fleet Mechanic Name Role Phone Génesis Canseco DO Primary Care Provider [phone] Reason for Visit * Reason Comments Follow Up Pt here for multiple lesions of concern on face. * Evaluate & Treat - Unlimited Visits (Within 10 days (routine)) - Authorized Specialty Diagnoses / Procedures Referred By Jose rivero Referred To Contact Dermatology Diagnoses Skin lesion of neck Génesis Canseco DO [address] [place] [address] Referral ID Status Reason Start Date Expiration Date Visits Requested Visits Authorized [id number] Authorized Specialty Services Required 08/19/2022 999 999 Encounter Details Date Type Department Care Team Description 09/27/2022 Office Visit Dermatology[address] [place] [address] Laure Arias PA-C [address] [place] [address] [place] [id number] Seborrheic keratosis* Allergies Active Allergy Reactions Severity Noted Date Comments Cat Dander 09/25/2014 Dog Dander 09/25/2014 Dust 09/23/2015 Pollen 09/25/2014 Losartan Other (Please comment) 03/02/2021 Hyperkalemia Morphine Nausea/vomiting Low 12/13/2017 Ragweed 09/25/2014 documented as of this encounter (statuses as of 09/27/2022) Medications Medication Sig Dispensed Refills Start Date [...] Tablet by mouth every evening. 0 Active [place]-3 Fatty Acids (ULTRA OMEGA 3) 952 MG CAPSIndications:Dy slipidemia, goal LDL below 100 One tab twice daily 180 Cap 1 04/19/2018 Active Coenzyme Q10 300 MG Oral Wafer Take 600 mg by mouth once. 0 Active DHEA 50 MG Oral Tablet Take 50 mg by mouth daily. 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 Overview: Hastings's esophagus: egd by Dr Grant () f/u EGD 2001- per pt Cyst of kidney, acquired Overview: followed at [facility] documented as of this encounter (statuses as of 09/27/2022) Resolved Problems Problem Noted Date Resolved Date [...] 3.4 by CTA 08/09/2012 [facility] Other*[id number] 201005/24/2016 Shortness of breath 02/22/2011 12/08/2016 Aortocoronary [...] as of this encounter (statuses as of 09/27/2022) Immunizations Name Administration Dates Next Due COVID-19 [...] as of this encounter Progress Notes * Laure Arias PA-C - 09/27/2022 11:15 AM EDT SUBJECTIVE: History of Present Illness: Hubert Persaud is a 82 year old male seen today for lesion. Previous office visit: 02/22/2022 Last attempted treatments include: NONE Full skin exam 03/08 Lesions on face (behind ears and L buddhist), present at last office visit. Itchy at times, uses anti-itch cream with improvement. REVIEW OF SYSTEMS: SKIN: No other new [...] NONE Reviewed, same day as visit, 0 [facility] Dermatology lab work(s)/pathology report(s) as well [...] Take 1 Tablet by mouth every evening. [place]-3 Fatty Acids (ULTRA OMEGA 3) 952 MG [...] 1 Capsule by mouth in the morning. Acidophilus Pearls Oral Capsule Take 1 Capsule by mouth 2 times a day. Allopurinol 100 MG Oral Tablet (Zyloprim) Take 1 Tablet by mouth in the morning and 1 Tablet before bedtime. 200 Tablet 3 amLODIPine Besylate 2.5 MG Oral Tablet (Norvasc) Take 1 Tablet by mouth in the morning. 100 Tablet 3 Apixaban 2.5 MG Oral Tablet (Eliquis) Take 1 Tablet by mouth in the morning and 1 Tablet beforebedtime. 200 Tablet 3 Atorvastatin Calcium 20 MG Oral Tablet (Lipitor) Take 1 Tablet by mouth in the morning. 100 Tablet 3 Omeprazole 40 MG Oral Capsule Delayed Release (PriLOSEC) Take 1 Capsule by mouth in the morning. 1 hour before the first meal of the day. 100 Capsule 3 Levothyroxine Sodium 150 MCG Oral Tablet (Levoxyl) Take 1 Tablet by mouth in the morning. (at least 30 min prior to breakfast or other meds). 100 Tablet 1 guaiFENesin ER 600 MG Oral Tablet Extended Release 12 Hour Take 1 Tablet by mouth 2 times a dayas needed for Congestion. Cholestyramine 4 GM Oral Packet (Questran) Take 1 Packet by mouth in the morning. Mixed with liquid.. 90 Packet 3 Carvedilol 12.5 MG Oral Tablet (Coreg) Take 25 mg in the morning and 12.5 mg in the evening 90 Tablet 5 No current facility-administered medications for this visit. ALLERG IES: Cat dander, Dog dander, Dust, Environmental [pollen], Losartan, Ragweed, and Morphine OBJECT VIJI: GEN: alert, no distress, appears oriented, pleasant and cooperative. SKIN: Detailed exam of hair, face including lids and lips and neck completed: 1. Scalp/face/neck-Extensive sharply defined, variegated brown, waxy flat papules with velvety to finely verrucous surfaces. ASSESS MENT/PLAN: 1. Seborrheic/Benign Keratosis(-es) on scalp/face/neck-no tx needed, pt given reassurance and written education about diagnosis. -Pt would like to have 3 lesions treated with cryo, but not at this visit, since he is having surgery tomorrow. Patient alone today. Photo(s) of #1 taken, pt verbally consented to having photo(s) taken. Follow-up: 02/23/23 for full skin exam (pt pt request) Applicable photos (if any) and chart reviewed by Dr. Kimberly Sutton. Presumed diagnoses, expected natural histories, and management [...] the visit and treatment. Laure Arias PA-C 09/27/2022 11:15 AM Ref: SELF[[id number]] NO STREET ADDRESS AVAILABLE None (office) None (fax) PCP: GÉNESIS [place]SE[place] [facility] [place] [address] [phone] documented in this encounter Nursing Notes * Liss Gardner LPN - 09/27/2022 11:18 AM EDT Patient identified by full name and date of Chief Complaint Patient presents with Follow Up Pt here for multiple lesions of concern on face. documented in this encounter Plan of Treatment Upcoming Encounters Date Type Specialty Care Team Description 11/04/2022 Office Visit Nephrology Ryan Issa MD [address] [place] [id number] 11/21/2022 Cardiac Studies Cardiac Studies 11/28/2022 Office Visit Gastroenterology Patricia Mejia CRNP [address] [place] [phone] 12/22/2022 Office Visit Dermatology Laure Arias PA-C [address] [place] [address] [place] [phone] 01/06/2023 [facility] Visit [facility] [address] [facility] [address] 02/23/2023 Office Visit Dermatology Laure Arias PA-C [address] [place] [address] [place] [phone] 02/27/2023 Office Visit Cardiology Bessy Gill PA-C [address] [place] [phone] 03/15/2023 Office Visit Nephrology Ryan Issa MD [address] [place] [address] Health Maintenance Due Date Last Done Comments AAA ULTRASOUND YEARLY 09/08/2022 09/08/2021 , 08/23/2021, 08/25/2020, Additional history exists CKD PHOS USE SMARTSET 99355 10/11/2022 06/2 10/2021, 03/18/2021, 03/02/2021, Additional history exists GFR 12/11/2022 06/13/2022, 05/19, 05/27/2022, Additional history exists CKD HGB USE SMARTSET 62863 06/13/202306/13, 06/13/2022, 06/06/2022, Additional history exists Depression [...] Associated Diagnosis Comments DERM IMAGE (SITE) Routine 09/27/2022 Seborrheic keratosis documented in this encounter Results * DERM IMAGE (SITE) (09/27/2022) 09/27/2022 Laure Arias PA-C DIGITAL PHOTOG FRITZ documented in this encounter Visit Diagnoses Diagnosis Seborrheic keratosis- Primary Other seborrheic keratosis documented in this encounter Care Teams Diesel Fleet Mechanic Relationship Specialty Start Date End Date Génesis Canseco, [address] [place] [address] PCP - General Internal Medicine 04/07/22 documented as of this encounter
--- OUTSIDE RECORDS SUMMARY | 2023-03-04 16:35 | External Medical Summary | Continuity of Care Document ---
Author Name Unknown Organization [facility] Address [address] [id number] Care Team Providers Care Cad Design Engineer Name Role Phone Yanick Canseco Primary Care Physician [phone] [id number] Date(s): 09/21/22 - 09/21/22 [facility] [address] [id number] [phone] Encounter Diagnosis Urinary retention(Discharge Diagnosis) - 09/21/22 Other retention of urine(Final) - Hypothyroidism, unspecified(Final) - Hyperlipidemia, unspecified(Final) - Essential (primary) hypertension(Final) - Old myocardial infarction(Final) - Unspecified atrial fibrillation(Final) - Gastro-esophageal reflux disease without esophagitis(Final) - Other obstructive and reflux uropathy(Final) - Benign prostatic hyperplasia with lower urinary tract symptoms(Final) - [facility] (current) use of aspirin(Final) - Personal history of urinary (tract) infections(Final) - Personal history of nicotine dependence(Final) - Allergy status to narcotic agent(Final) - Acquired absence of other specified parts of digestive tract(Final) - Acquired absence of other genital organ(s)(Final) - Presence of aortocoronary bypass graft(Final) - Discharge Disposition: Home or Self Care Attending Physician: Devendra Mcwilliams MD, Anton Pardo Referring Physician: Devendra Mcwilliams MD, Anton Pardo Allergies, Adverse Reactions, Alerts Substance Reaction Severity Status morphine Nausea Mild Active Cats runny nose Active Dust runny nose Active Pollen runny nose Active Ragweed runny nose Active Functional Status 09/21/22 Level of Consciousness Neuro Alert Speech Pattern Clear 09/21/22 History of Fall in Last 3 Months Haynes Y es Presence of Secondary Diagnosis Haynes No Use of Ambulatory Aid Haynes None/bedrest /nurse assist IV/Heparin Lock Fall Risk Haynes Yes Gait/Transferring Fall Risk Haynes Normal /bedrest/immobile Mental Status Fall Risk Haynes Oriented t o own ability Haynes Fall Risk Score 45 Haynes Fall Risk Low Risk 09/21/22 Neurological Symptoms None ADLs Independent Facial Symmetry Symmetric Gait Steady Swallowing Difficulty NPO Medications acetaminophen Start: 11/26/21 15:29:00 EDT, 500 mg =, PO, q6h, PRN: as needed for pain Start Date: 11/26/21 Status: Ordered Acidophilus Probiotic Blend Start: 04/26/22 14:17:00 EST [...] PO, Daily Start Date: 11/26/21 Status: Ordered glucosamine 500 mg oral capsule Start: 11/26/21 15:29:00 EDT, 1 cap, PO, Daily Start Date: 11/26/21 Status: Ordered levothyroxine Start: 11/26/21 15:26:00 EDT, 175 mcg =, PO, Daily Start Date: 11/26/21 Status: Ordered multivitamin Start: 11/26/21 15:28:00 EDT, 1 tab, PO, Daily Start Date: 11/26/21 Status: Ordered nitroglycerin Start: 11/26/21 15:24:00 EDT, 0.4 mg =, SL, q5min, PRN: as needed for chest pain Start Date: 11/26/21 Status: Ordered Houston-3 350 mg oral capsule Start: 11/26/21 15:28:00 EDT, 1 cap, PO, Daily Start Date: 11/26/21 Status: Ordered omeprazole Start: 11/26/21 15:25:00 EDT, 40 mg =, PO, Daily Start Date: 11/26/21 Status: Ordered tamsulosin 0.4 mg oral capsule Start: 09/21/22 15:28:00 EDT, 1 cap, PO, Daily, Disp# 30 cap, Pharmacy: [facility] Start Date: 09/21/22 Status: Ordered Tylenol 8 Hour 650 mg oral tablet, extended release Start: 09/21/22 15:27:00 EDT, 2 tab, PO, q8h, Disp# 24 tab, Pharmacy: [facility] Start Date: 09/21/22 Status: Ordered Vitamin C 1000 mg oral tablet Start: 04/26/22 14:17:00 EST, 1 tab, PO, bid Start Date: 04/26/22 Status: Ordered vitamin E Start: 04/26/22 14:17:00 EST, 400 Int_Unit =, PO, every Monday and Monday Start Date: 04/26/22 Status: Ordered Mental Status 09/21/22 Communication Barrier Present No Primary Language British Problem List Condition Confirmation Course Effective Dates Status Health St atus Informant BPH with urinary obstruction Confirmed Active Diagnosis Diagnosis Type Effective Dates Health Status inical Service Informant Urinary retention Discharge Diagnosis 09/21/22 Procedures Procedure Date Related Diagnosis Body Site Status INSERTION SACRAL NERVE STIMULATOR 1 09/21/22 Completed Appendectomy Completed CABG - Coronary artery bypass graft Completed Esophageal cancer Complet ed TURP - Transurethral resecti on of prostate Completed 1auto-populated from documented surgical case Vital Signs Most recent to oldest [Reference Range]: 1 2 3 Height 180.34 cm (09/21/22 11:34 AM) Patient Weight 87.0 kg (09/21/22 11:34 AM) Body Mass Index 26.75 kg/m2 (09/21/22 11:34 AM) Temperature [36.5-37.9 DegC] 36.4 DegC *LOW* (09/21/22 4:30 PM) 36.4 DegC *LOW* (09/21/22 3:34 PM) 36.4 DegC *LOW* (09/21/22 11:34 AM) Heart Rate 74 bpm (09/21/22 4:30 PM) 74 bpm (09/21/22 4:30 PM) 79 bpm (09/21/22 4:15 PM) Respiratory Rate 21 br/min (09/21/22 4:30 PM) 21 br/min (09/21/22 4:30 PM) 14 br/min (09/21/22 4:15 PM) Blood Pressure 150/66mmHg (09/21/22 4:30 PM) 150/66mmHg (09/21/22 4:15 PM) 155/78mmHg (09/21/22 4:00 PM) Mean Blood Pressure 90 mmHg (09/21/22 4:15 PM) 102 mmHg (09/21/22 4:00 PM) 75 mmHg (09/21/22 3:45 PM) Cuff Pulse Pressure 84 mmHg (09/21/22 4:15 PM) 77 mmHg (09/21/22 4:00 PM) 74 mmHg (09/21/22 3:45 PM) BP Location # 1 Right Arm (09/21/22 3:34 PM) Left Arm (09/21/22 11:34 AM) Social History Social History Type Response Smoking Status Former Smoker, quit > 1 yr Sex Male Implantable Device List Procedure Provider Procedure Date Device Type Site Unknown Unknown 09/21/22 Unknown Unknown Device Identifier Serial Number Lot or Batch Number Manufacturing Date Expiration Date Distinct Identification Code MRI Safety Implantable Status Assigning Authority Unknown Unknown [id number] Unknown 01/05/24 Unknown Unknown Active Unk nown Surgical operation note * Devendra Mcwilliams MD, Anton Pardo: PERFORM Event Display: .Operative Report Authored Date: [id number] Name:ADELAIDE ESQUIVEL Patient Number:[id number] :1940 Date of Service:09/21/2022 Preoperative Diagnosis Retention of urine Postoperative Diagnosis Retention of urine In Room Time 09/21/22 13:53:00 Operation INSERTION SACRAL NERVE STIMULATOR, Stage 1 sacral neurostimulator implantation, Medtronic CPT 92445 Surgeon(s) Devendra Mcwilliams MD, Anton Pardo (Physician - Primary) Anesthesia See Anesthesia Record DO Chaparro Ji Hea (Primary Attending) EVELIA Jung Kathryn E (CONTRACT ADMINISTRATION MANAGER) EVELIA Potts Andrew (CONTRACT ADMINISTRATION MANAGER) Estimated Blood Loss 5 cc Urine Output 0 cc Lines, Tubes, Drains, Tourniquets None Specimen(s) None Implants/Devices: Stage 1 Sacral neuromodulator device (Medtronic Insterstim) Findings Adequate motor and sensitive response Complications None Indication for Surgery Urinary retention Technique Patient was properly identified and placed in prone position per OR protocol.Pillows were placed under lower abdomen to flatten the sacrum and under shins to allow the toes to dangle freely. A ground pad was placed on the bottom of the patient's food and the proximal ends of the test stimulation cable were connected to the ground padand the ENS. Patient was prepped and drapedin usual sterile fashion. The C-arm was movedinto AP position to provide fluoroscopic guidance on the sacrum. The medial edges of the foramina were identifiedand marked. The C armwas then moved into the lateral position to identify the S3 foramen. Once the needle entry point was that a minor local injection of bupivacaine and lidocaine was administered. A 3.5 foramen needlewas placed in the superior, medial aspect of theS3 foramen and appropriateneedle depth was visualized utilizing fluoroscopy. Proper S3 needle location wasalso confirmed by directobservationof thelifting of the perineum or "bellowing" and plantarflexion of the great toe utilizing the testing latercable, the ENS and robot programmer. The framerneedle stylette was removed and adirectional guide was placed through the needle using markers on the guide to assure appropriate depth. The foramen needle wasremoved by sliding over thedirectional guide. A small incision was made. Frequentlyto the directional guide through theskin. The lead introducerwith dilator was placed over the directional guide and utilizingfluoroscopic guidance, the lead introducerwas advanceduntil the radiopaque marker was confirmedhalfwaythrough the foramen. The dilator was removed alongwith the directional guideusing fluoroscopy 13th lead withbent still it was placed through the introduceruntil electrodes 2 and 3 straddled the anterior surface of the sacrum. All 4 electrodes were tested, observing bellowsandplantarflexionof the great toe utilizing the test stimulatorcable and the ENS and enhance verify robot programmer. After satisfactory lead positioning was confirmed, the introducer was retracted over the lead under continuous fluoroscopy, deployed in the teensinto presacral tissue. Retesting ofall 4 electrodes confirmingappropriate responses was completed. The future internalneurostimulator pocket site was identified below the Ilac crestand lateral to the sacrum. Localanesthesia was administered and an incision was made into the subcutaneous tissue which creating a connectionpocket site. Blunt dissection was used to create a small pocket a nd hemostasisachieved. A tunneling toolwith sheath and dilator tip was placed from the lead insertion sitesubcutaneously to the small in size connection pocket site. The tunneling tool was removed and the lead was fed through the sheath, exiting at the connection pocket site. The sheath was removed. The percutaneous exit siteLocal anesthesia on the contralateral side. An incision was made at the contralateral percutaneous extension side. The tunneling tool. The tunneling tool was reassembled with the dilator tip excluding the tunneling tube was inserted at the pocket connection site and tunneled to the percutaneous extension exit site. The dilator tip was removed and replaced with a carrier tip. The connector end of the percutaneous extension was pressed feed into the carrier tip and the tunneling tool was pulled back to the connection pocket site. The connector end of the percutaneous extensions was detached and the tunneling tool and carried to where is removed. The lead and connector end of the percutaneous extension were cleaned and dried. The lead was inserted into percutaneous extension connection hub. Thesetscrew was tightenedwith the torchwrenchunituntil an audible click was heard. The connectioncomponents were placedinto the connection pocket site. The incisions and pockets were irrigated with antibiotic solution and sterilewater and closed with Monocryl subcuticular sutures and Monocryl skin sutures. Adhesive strips and gauze were placed over incisions and the percutaneous extension exit siteand secured with transparent dressing. Gauze was placed under the percutaneous extension with a cable strain relief and securedusingtransparent dressing. The percutaneous extension was then plugged into the ENS and placed into the pouch on their wearable patient belt. Counts were correct atand estimated blood loss was 5 cc. The patient was transferred to the recovery room in satisfactory condition. Using the robot programmer and ANS the patient was programmed to the electrode of optimal sensation and provided utilizationinstructions prior to discharge. Patient will complete abladder diaryduring testing. To help d ocumentresults of the procedure. Conclusion> Advanced Evaluation (stage 1) Sacral Neuromodulator Device Placement Plan> - Discharge - We will evaluate symptoms and define next steps based on that Electronic Signature on File Electronically Reviewed/Signed by: Anton Mcwilliams MD Author Signature Dt/Tm:303:50 PM Urology CAN Discharge instructions * Devendra Mcwilliams MD, Anton Pardo: PERFORM Event Display: Patient Discharge Instructions Authored Date: [id number] ADELAIDE ESQUIVEL :1940 Visit Date:09/21/2022 Patient Discharge Instructions [facility] For questions or further information, call: . Date of Admission:09/21/2022 Date of Discharge:09/21/2022 Physician:Devendra Mcwilliams MD, Anton Pardo Service:Urology Discharge Disposition: . Advance Directive:Living will, Health Care Power of All Around Presser Reason for Hospitalization Urinary retention Your Diagnoses Urinary retention My [facility] Patient Portal: [facility] makes it easy for you to manage your health information online. My [facility] is a free service that provides you instant, secure access to your medical information anytime, anywhere. Sign in or set up your account today at [facility] [place] [email or web address] to Scale Thank you for allowing us to assist you with your healthcare needs. Medications What How Much When Why Instructions Next Dose New tamSULOsin (tamsulosin 0.4 mg oral capsule) 1 cap by mouth Once daily Urinary retention Pickup at [facility] Changed acetaminophen 500 Milligram by mouth Every 6 hours as needed for as needed for pain Changed acetaminophen (Tylenol 8 Hour 650 mg oral tablet, extended release) 2 tab(s) by mouth Every 8 hours Urinary retention Pickup at [facility] Unchanged allopurinol 100 Milligram by mouth Once daily Unchanged amLODIPine 2.5 Milligram by mouth Once daily Unchanged apixaban (apixaban 2.5 mg oral tablet) 1 tab(s) by mouth 2 times daily Unchanged ascorbic acid (Vitamin C 1000 mg oral tablet) 1 tab(s) by mouth 2 times daily Unchanged aspirin (aspirin 81 mg oral capsule) 1 cap by mouth Once daily Unchanged atorvastatin 20 Milligram by mouth Once daily Unchanged carvedilol (carvedilol 12.5 mg oral tablet) by mouth 2 tabs qAM, 1 tab qPM Unchanged glucosamine (glucosamine 500 mg oral capsule) 1 cap by mouth Once daily Unchanged lactobacillus acidophilus (Acidophilus Probiotic Blend) Unchanged levothyroxine 175 Microgram by mouth Once daily Unchanged multivitamin 1 tab(s) by mouth Once daily Unchanged nitroglycerin 0.4 Milligram sublingually Every 5 minutes as needed for as needed for chest pain Unchanged omega-3 polyunsaturated fatty acids (Houston-3 350 mg oral capsule) 1 cap by mouth Once daily Unchanged omeprazole 40 Milligram by mouth Once daily Unchanged ubiquinone (CoQ10 300 mg oral capsule) 1 cap by mouth Once daily Unchanged vitamin E 400 International Unit by mouth every Monday and Monday Pharmacy Information [facility] [address]: [address] [place], [place] [id number] [phone] Allergies morphine (Mild)Nausea Catsrunny nose Dustrunny nose Pollenrunny nose Ragweedrunny nose What to do next Instructions From Your Doctor We we willdo evaluations of your symptomsand we will decide if we can go to step toof the neuromodulator or if we should removethedevice depending ontheresponse tothe treatment. If you notice the following symptoms Fever Contact us at If unable to contact your physician and you feel it is an emergency, go to the nearest Emergency Room or call 911 Diet Instructions As tolerated Activity Instructions As tolerated Follow-Up Appointments Scheduled Follow-Up Appointments Date/Time:Provider/Resource: Sep 03:45 pmHPDOR OR 02 Location/Instructions: The Following Services Have Been Arranged for You No Post-Acute Placement(s) Listed No Post-Acute Service(s) Listed Tests Pending None Procedures Performed Step 1 placement of sacral neuromodulator Special Instructions Common Emergency Awareness Tips Call 911 immediately if: experiencing any of the warning signs and symptoms of stroke: B.E. F.A.S.T. Balance: is there trouble with walking or coordination Eyes: is there double vision or visual loss Face: Smile, do both sides of face move equally Arm: Raise arms, do both arms move equally Speech: Is speech slurred or inappropriate Time: Time is critical, call 911 immediately Heart Attack Signs Chest discomfort: Most heart attacks involve discomfort in the center of the chest and lasts more than a few minutes, or goes away and comes back. It can feel like uncomfortable pressure, squeezing, fullness or pain. Discomfort in upper body: Symptoms can include pain or discomfort in one or both arms, back, neck, jaw or stomach. Shortness of breath: With or without discomfort. Other signs: Breaking out in a cold sweat, nausea, or lightheaded. Remember, MINUTES DO MATTER. If you experience any of these heart attack warning signs, call to get immediate medical attention! Anes H&P * MD Sauer Daniel D: PERFORM, SIGN, VERIFY Event Display: Anes H&P Authored Date: [id number] Patient: ADELAIDE ESQUIVEL Age: 82 years Sex: Male : 1940 Associated Diagnoses: None Author: MD Sauer Daniel D Preoperative Information Pre-Operative Diagnosis: See below . Anesthiesia Preop Info: Procedure: Stage 1 sacral neurostimulator implantation, Medtronic Date: 09/21/22 13:25 Surgeons: Devendra Mcwilliams MD, Anton Pardo Diagnosis: urinary retention Procedure: Stage II sacral neurostimulator implantation, Medtronic Date: 09/28/22 14:30 Surgeons: Devendra Mcwilliams MD, Anton Pardo Diagnosis: urinary retention . NPO Status: Other: NPO @ midnight. Nursing Information: Nurse Pre Procedure Screening Assessment 09/20/2022 09:16 EDT Radiation and Oncology No Cardiovascular History Of HTN Controlled, Irregular Rythm, Heart murmur benign, Dyslipidemia, Other: hx SC, CABG, "leaky valve", afib Anesthesia History Yes PostOp Nausea & Vomiting No Family Anesthesia History No prior anesthesia complications Recent URI Resolved Comment had double pneumonia Mar 2022 Pulmonary History None Reported Pulmonary History Of Other: no EMILY Endocrine History Of Hypothyroidism Gastrointestinal History Of GERD Hematologic History None Reported Psychiatric History None Reported Neurologic History None Reported Renal History Of BPH, Other: recurrent UTIs Orthopedic History None Reported Cancer Type esophageal Type of Chemo No Ophthalmology History None Reported . History of Present Illness The patient presents for preanesthesia evaluation with. Medical History Cardiovascular: Hypertension. Coronaries: CABG. Dysrhythmia: atrial fibrillation. Gastrointestinal: GERD. Functional Capacity: 4-6 METs = moderate: Climbing a flight of stairs. Health Status Allergies: Allergic Reactions (All) Mild Morphine- Nausea. Severity Not Documented Cats- Runny nose. Dust- Runny nose. Pollen- Runny nose. Ragweed- Runny nose.. Medications: Medication List (Selected) Inpatient Medications Ordered Ancef: 2 g, 100 mL, 200 mL/HR, IV, ONCE Lactated Ringers Injection 1,000 mL: 100 mL/HR, IV Fluid, Stop: 10/21/22 10:54:00 EDT Documented Medications Documented Acidophilus Probiotic Blend: CoQ10 300 mg oral capsule: 1 cap, PO, Daily Houston-3 350 mg oral capsule: 1 cap, PO, Daily Vitamin C 1000 mg oral tablet: 1 tab, PO, bid acetaminophen: 500 mg, PO, q6h, PRN: as needed for pain allopurinol: 100 mg, PO, Daily amLODIPine: 2.5 mg, PO, Daily apixaban 2.5 mg oral tablet: 1 tab, PO, bid aspirin 81 mg oral capsule: 1 cap, PO, Daily atorvastatin: 20 mg, PO, Daily carvedilol 12.5 mg oral tablet: PO, 2 tabs qAM, 1 tab qPM glucosamine 500 mg oral capsule: 1 cap, PO, Daily levothyroxine: 175 mcg, PO, Daily multivitamin: 1 tab, PO, Daily nitroglycerin: 0.4 mg, SL, q5min, PRN: as needed for chest pain omeprazole: 40 mg, PO, Daily vitamin E: 400 Int_Unit, PO, every Monday and Monday. Problem List: Medical BPH with urinary obstruction / SNOMED CT [id number] / Confirmed All Problems BPH with urinary obstruction / SNOMED CT [id number] / Confirmed. Histories Procedure History: CABG - Coronary artery bypass graft (508678142). Esophageal cancer (0200185304). TURP - Transurethral resection of prostate (904779955). Appendectomy ([id number]).. Social History: Cigarrette Smoker? Former Smoker, quit > 1 yr Other Tobacco Use: Never used other tobacco products Alcohol: Recreational Drugs: . Physical Examination VS/Measurements: Vital Signs 09/21/2022 11:34 EDT Temperature 36.4 DegC LOW Temperature Route Temporal Heart Rate 84 bpm Respiratory Rate 19 br/min Systolic Blood Pressure 139 mmHg Diastolic Blood Pressure 65 mmHg BP Location # 1 Left Arm BP Cuff Size Regular Mean Blood Pressure 87 mmHg Cuff Pulse Pressure 74 mmHg Pulse 84 Oxygen Therapy Room air SpO2 98 % . General: Alert and oriented. Airway: Mallampati classification: III (soft palate, base of uvula visible). Mouth: Within normal limits, Adequate opening, Dentures ( Full, Upper dentures ), Teeth ( Within normal limits ). Respiratory: Lungs are clear to auscultation, Respirations are non-labored. Cardiovascular: Normal rate, Regular rhythm. Anesthesiologist Assessment and Plan Problems: No previous anesthetic complications. ASA Classification: Class III. Anesthetic Plan: Anesthesia provided by other physicians and anesthesia team. Premedication: Intravenous. Anesthetic technique discussed: General anesthesia. Induction discussed: Intravenously. Airway plan discussed: Nasal Cannula. Risks discussed: Nausea-vomiting, Sore throat, Dental injury, Eye injury, Serious complications. Informed consent: Signed by patient. History, Physical Exam, Assessment and Plan Completed: 09/21/2022 12:55:00, MD Camacho, Landen Patrick Review / Management Results Review Electronic Signature on File Electronically Reviewed/Signed by: Landen Sauer MD Author Signature Dt/Tm:09/21/2022 12:57 PM Anesthesiology DDR Patient Care team information Care Team Personnel Name: DO Canseco Scott A Position: Referring DIRECT Member Role: Primary Care Provider Address: Address: [address] [place] [address] [place] Care Team Related Persons Name: DEWEY ESQUIVEL Address: home [address] [phone]
--- OUTSIDE RECORDS SUMMARY | 2023-03-04 16:35 | External Medical Summary | Continuity of Care Document ---
Author Name Unknown Organization [facility] Address [address] [id number] Care Team Providers Care Bale Coverer Name Role Phone Yanick Canseco Primary Care Physician [phone] Encounter [facility] FINNBR [id number] Date(s): 09/28/22 - 09/28/22 [facility] [address] [facility] [address] [place] [id number] [phone] Encounter Diagnosis Urinary retention(Discharge Diagnosis) - 09/28/22 Discharge Disposition: Home or Self Care Attending Physician: Devendra Mcwilliams MD, Anton Pardo Referring Physician: Devendra Mcwilliams MD, Anton Pardo Allergies, Adverse Reactions, Alerts Substance Reaction Severity Status morphine Nausea Mild Active Cats runny nose Active Dust runny nose Active Pollen runny nose Active Ragweed runny nose Active Functional Status 09/28/22 Swallowing Difficulty None, Other: tolerating sips of clears without difficulty 09/28/22 History of Fall in Last 3 Months Haynes Y es Presence of Secondary Diagnosis Haynes Ye s Use of Ambulatory Aid Haynes None/bedrest /nurse assist IV/Heparin Lock Fall Risk Haynes Yes Gait/Transferring Fall Risk Haynes Normal /bedrest/immobile Mental Status Fall Risk Haynes Oriented t o own ability Haynes Fall Risk Score 60 Haynes Fall Risk High risk 09/28/22 Neurological Symptoms None ADLs Unable to assess Facial Symmetry Symmetric Gait Unable to assess Level of Consciousness Neuro Alert Hallucinations Present None Speech Pattern Clear Medications Acidophilus Probiotic Blend Start: 04/26/22 14:17:00 [...] chest pain Start Date: 11/26/21 Status: Ordered Baldwin-3 350 mg oral capsule Start: 11/26/21 15:28:00 EDT, 1 cap, PO, Daily Start Date: 11/26/21 Status: Ordered omeprazole Start: 11/26/21 15:25:00 EDT, 40 mg =, PO, Daily Start Date: 11/26/21 Status: Ordered tamsulosin 0.4 mg oral capsule Start: 09/21/22 15:28:00 EDT, 1 cap, PO, Daily, Disp# 30 cap, Pharmacy: [facility] 80[facility] Start Date: 09/21/22 Status: Ordered Tylenol 8 Hour 650 mg oral tablet, extended release Start: 09/28/22 15:41:00 EDT, 2 tab, PO, q8h, Disp# 24 tab, Pharmacy: [facility] 6524 Start Date: 09/28/22 Status: Ordered Vitamin C 1000 mg oral tablet Start: 04/26/22 14:17:00 EST, 1 tab, PO, bid Start Date: 04/26/22 Status: Ordered vitamin E Start: 04/26/22 14:17:00 EST, 400 Int_Unit =, PO, every Monday and Monday Start Date: 04/26/22 Status: Ordered Mental Status 09/28/22 Communication Barrier Present No Primary Language Upper Sorbian Problem List Condition Confirmation Course Effective Dates [...] Diagnosis Diagnosis Type Effective Dates Health Status Cl inical Service Informant Urinary retention Discharge Diagnosis 09/28/22 Non-Specified Procedures Procedure Date Related Diagnosis Body Site Status INSERTION SACRAL NERVE STIMULATOR 1 09/28/22 Completed INSERTION SACRAL NERVE STIMULATOR 2 09/21/22 Completed Appendectomy Completed CABG - Coronary artery bypass graft Completed Esophageal cancer Complet ed Quadruple coronary artery by pass graft 3 Completed TURP - Transurethral resecti on of prostate 4 Completed 1auto-populated from documented surgical case 2auto-populated from documented surgical case 3post NH as per patient 4patient states multiple TURPs Vital Signs Most recent to oldest [Reference Range]: 1 2 3 Height 182.88 cm (09/28/22 12:52 PM) Patient Weight 86.3 kg (09/28/22 12:52 PM) Body Mass Index 25.8 kg/m2 (09/28/22 12:52 PM) Temperature [36.5-37.9 DegC] 36.5 DegC (09/28/22 4:45 PM) 36.5 DegC (09/28/22 4:35 PM) 36.7 DegC (09/28/22 3:47 PM) Heart Rate 77 bpm (09/28/22 4:45 PM) 77 bpm (09/28/22 4:35 PM) 77 bpm (09/28/22 4:15 PM) Respiratory Rate 10 br/min (09/28/22 4:45 PM) 10 br/min (09/28/22 4:35 PM) 10 br/min (09/28/22 4:15 PM) Blood Pressure 144/76mmHg (09/28/22 4:45 PM) 144/76mmHg (09/28/22 4:35 PM) 144/76mmHg (09/28/22 4:15 PM) Mean Blood Pressure 96 mmHg (09/28/22 4:15 PM) 91 mmHg (09/28/22 4:00 PM) 79 mmHg (09/28/22 3:47 PM) Cuff Pulse Pressure 68 mmHg (09/28/22 4:15 PM) 79 mmHg (09/28/22 4:00 PM) 54 mmHg (09/28/22 3:47 PM) BP Location # 1 Left Arm (09/28/22 12:52 PM) Social History Social History Type Response [...] Safety Implantable Status Assigning Authority Unknown Unknown [id number] Unknown 01/05/24 Unknown Unknown Active Unk nown Surgical operation note * Devendra Mcwilliams MD, Anton Pardo: PERFORM Event Display: .Operative Report Authored Date: [id number] Name:ADELAIDE ESQUIVEL Patient Number:[id number] :1940 Date of Service:09/28/2022 Preoperative Diagnosis Urinary retention Postoperative Diagnosis Urinary retention In Room Time 09/28/22 14:59:00 Operation INSERTION SACRAL NERVE STIMULATOR, Stage II sacral neurostimulator implantation, [employer]tronic CPT codes 69852 and 80919 Surgeon(s) Devendra Mcwilliams MD, Anton Pardo (Physician - Primary) Anesthesia See Anesthesia Record DO Spencer Christopher Ross (Primary Attending) EVELIA Potts Andrew (CHEMICAL TREATMENT OPERATOR) Estimated Blood Loss 0 cc Urine Output 0 cc Lines, Tubes, Drains, Tourniquets None Specimen(s) None Implants/Devices: Stage II sacral neuromodulator Findings None Complications None Indication for Surgery Urinary Retention Technique Patient was properly identified and placed in prone position per or protocol. Sedation was administered and patient was prepped and draped in the usual sterile fashion with the percutaneous extension exit site covered. Local injection of bupivacaine was administered. The previous upperbuttock incision was opened using blunt dissection and the lead percutaneous connection was identified and evaluated. The leadand percutaneous connectorwere exposed and the setscrewwasloosenedusing the torquewrench. The percutaneous extensions was disconnected from the lead. The percutaneous extension was cut below the plastic and was removedfrom thefield, at the exit site, ensuring stability. The connection hub was discarded. The percutaneous exit sitewas irrigated and antibiotic solution and sterilewaterand closed withVicryl subcuticularsutures andMonocryl for the skin sutures. The subcutaneous pocket was enlargedto accommodate the internal normal later(INS)and hemostasia waswas established. The lead was cleaned and dried. The lead was insertedinto the header of theInterStimsacral normal laterneurostimulator. The single set screw was tightenedusing the torque wrench used anaudible click was heard. The neurostimulator was placed into the pocket andany excess lead was coiled behind the neurostimulator. The communicator,coveredin a sterile sleeve, was placed over the implanted neurostimulator to ensure proper lead connection orand that parameters were withinnormal range. Impedanceswere confirmed to be within normal limits, greater than 50 and less than 4000oh HMS. The wound was irrigated with antibiotic solution and sterile waterand closed withVicrylsubcuticular sutures and Monocryl skin sutures. Count was correctat the see ifDermabond was placedover the incision and cover with transparent dressing. Estimated blood loss was5 cc. The patient was transferred torecovery in satisfactory condition using the clinician senior systems programmer, and the INSwas programmed. Conclusion> Neurostimulator Implant (Stage 2) Plan> - Discharge - We will meet in the clinic in 2 weeks for incision check Electronic Signature on File Electronically Reviewed/Signed by: Anton Mcwilliams MD Author Signature Dt/Tm:303:55 PM Urology CAN Discharge instructions * Devendra Mcwilliams MD, Anton Pardo: PERFORM Event Display: Patient Discharge Instructions Authored Date: [id number] ADELAIDE ESQUIVEL :1940 Visit Date:09/28/2022 Patient Discharge Instructions [facility] For questions or further information, call: . Date of Admission:09/28/2022 Date of Discharge:09/28/2022 Physician:Devendra Mcwilliams MD, Anton Pardo Service:Urology Discharge Disposition: . Advance Directive:Living will, Health Care Power of Balloon Seller Reason for Hospitalization Urinary retention Your Diagnoses Urinary retention My Cell>Point Patient Portal: [employer] makes it easy for you to manage your health information online. [facility] [employer] is a free service that provides you instant, secure access to your medical information anytime, anywhere. Sign in or set up your account today at [email or web address] Thank you for allowing us to assist you with your healthcare needs. Medications What How Much When Why Instructions Next Dose Changed acetaminophen (Tylenol 8 Hour 650 mg oral tablet, extended release) 2 tab(s) by mouth Every 8 hours Pickup at [facility] 9[facility] Unchanged allopurinol 100 Milligram by mouth Once [...] chest pain Unchanged omega-3 polyunsaturated fatty acids (Baldwin-3 350 mg oral capsule) 1 cap by mouth Once daily Unchanged omeprazole 40 Milligram by mouth Once daily Unchanged tamSULOsin (tamsulosin 0.4 mg oral capsule) 1 cap by mouth Once daily Urinary retention Unchanged ubiquinone (CoQ10 300 mg oral capsule) 1 cap by mouth Once daily Unchanged vitamin E 400 International Unit by mouth every Monday and Monday Pharmacy Information [facility] [address]: [address], [place] [id number] [phone] Allergies morphine (Mild)Nausea Catsrunny nose Dustrunny nose Pollenrunny nose Ragweedrunny nose What to do next Instructions From Your Doctor We will continue following your case and we will see you in about a month in the clinic. If you notice the following symptoms Fever,worsening pain Contact us at If unable to contact your physician and you feel it is an emergency, go to the nearest Emergency Room or call [phone] Diet Instructions As tolerated Activity Instructions As tolerated Follow-Up Appointments Someone Will Contact You Regarding These Appointments Provider or Location Time Frame Details about visit Urology If you have not been contacted with this appointment information within two business days, please call Urology Scheduling [phone]. Tests Pending None Procedures Performed Stage II sacral neuromodulator implantation, Medtronic Special Instructions Common Emergency Awareness Tips Call [phone] immediately if: experiencing any of the warning [...] get immediate medical attention! Anes H&P * DO Spencer Christopher Ross: PERFORM, SIGN, VERIFY Event Display: Anes H&P Authored Date: [id number] Patient: ADELAIDE ESQUIVEL Age: 82 years Sex: Male : 1940 Associated Diagnoses: None Author: DO Spencer Christopher Ross Preoperative Information Pre-Operative Diagnosis: Stage II device for urinary retention . Anesthiesia Preop Info: Procedure: Stage II sacral neurostimulator implantation, [employer] Date: 09/28/22 14:45 Surgeons: Devendra Mcwilliams MD, Anton Pardo Diagnosis: urinary retention . NPO Status: Other: NPO except meds since midnight. Nursing Information: Nurse Pre Procedure Screening Assessment 09/26/2022 11:37 EDT Cardiovascular History Of HTN Controlled, Irregular Rythm, Heart murmur benign,Dyslipidemia, Other: Mi/CABG- aortic insufficiency Anesthesia History Yes PostOp Nausea & Vomiting No Family Anesthesia History No prior anesthesia complications Pulmonary History None Reported Endocrine History Of Hypothyroidism Gastrointestinal History Of GERD Hematologic History None Reported Psychiatric History None Reported Neurologic History None Reported Renal History Of BPH, Other: UTIs- straight caths Orthopedic History None Reported Ophthalmology History None Reported 09/20/2022 09:16 EDT Radiation and Oncology No Cardiovascular History Of HTN Controlled, Irregular Rythm, Heart murmur benign, Dyslipidemia, Other: hx NH, CABG, "leaky valve", afib Anesthesia History Yes [...] Chemo No Ophthalmology History None Reported . Medical History Medical Devices: Medical Devices: none . Gastrointestinal: esophagectomy 20 years ago. Anesthesia History: Patient's history: reported difficult intubation by ~20 years ago during esophagectomy. reported NO letter and this came from the surgeon and not anesthesia team. Reported TURBT x2 without issue. Family's history: Negative. Health Status Allergies: Allergic Reactions (Selected) Mild Morphine- Nausea. Severity Not Documented Cats- Runny nose. Dust- Runny nose. Pollen- Runny nose. Ragweed- Runny nose.. Medications: Medication List (Selected) Inpatient Medications Ordered LR 1,000 mL: 100 mL/HR, IV Fluid, Stop: 10/28/22 12:48:00 EDT Prescriptions Prescribed Tylenol 8 Hour 650 mg oral tablet, extended release: 2 tab, PO, q8h, 24 tab tamsulosin 0.4 mg oral capsule: 1 cap, PO, Daily, 30 cap Documented Medications Documented Acidophilus Probiotic Blend: CoQ10 300 mg oral capsule: 1 cap, PO, Daily Baldwin-3 350 mg oral capsule: 1 cap, PO, [...] BPH with urinary obstruction / SNOMED CT 0362263994 / Confirmed Chronic kidney disease stage 3B / SNOMED CT 4791942212 / Confirmed Gastroesophageal reflux disease / SNOMED CT 839569924 / Confirmed Gout / SNOMED CT 539353607 / Confirmed History of coronary artery bypass grafting / SNOMED CT 1235986357 / Confirmed Hyperlipidemia / SNOMED CT 19536456 / Confirmed Hypothyroidism / SNOMED CT 10834931 / Confirmed Neurogenic bladder / SNOMED CT 1904706630 / Confirmed Obstructive sleep apnea syndrome / SNOMED CT 880800672 / Confirmed All Problems BPH with urinary obstruction / SNOMED CT 9695490142 / Confirmed Chronic kidney disease stage 3B / SNOMED CT 8731639895 / Confirmed Gastroesophageal reflux disease / SNOMED CT 799099993 / Confirmed Gout / SNOMED CT 453073566 / Confirmed History of coronary artery bypass grafting / SNOMED CT 9858304463 / Confirmed Hyperlipidemia / SNOMED CT 76666217 / Confirmed Hypothyroidism / SNOMED CT 87573536 / Confirmed Neurogenic bladder / SNOMED CT 5462993926 / Confirmed Obstructive sleep apnea syndrome / SNOMED CT 618423352 / Confirmed. Histories Procedure History: INSERTION SACRAL NERVE STIMULATOR on 09/21/2022 at 82 Years. Comments: 09/21/2022 15:39 EDT - Brianna Chandler RN, Fannie Vargas auto-populated from documented surgical case CABG - Coronary artery bypass graft ([id number]). Esophageal cancer (2247742693). TURP - Transurethral resection of prostate (371194203). Comments: 09/28/2022 13:37 ARON Butler RN, Courtney patient states multiple TURPs Appendectomy (045196056). Quadruple coronary artery bypass graft (7318443692). Comments: 09/28/2022 13:37 ARON Butler RN, Courtney post NH as per patient. Social History: Cigarrette Smoker? Former Smoker, quit > 1 yr Other Tobacco Use: Never used other tobacco products Alcohol: Recreational Drugs: . Physical Examination VS/Measurements: Vital Signs 09/28/2022 12:52 EDT Temperature 36.5 DegC Temperature Route Temporal Heart Rate 96 bpm Respiratory Rate 21 br/min Systolic Blood Pressure 140 mmHg Diastolic Blood Pressure 76 mmHg BP Location # 1 Left Arm BP Cuff Size Regular Mean Blood Pressure 93 mmHg Cuff Pulse Pressure 64 mmHg Pulse 96 Oxygen Therapy Room air SpO2 97 % . General: Alert and oriented. Airway: Mallampati classification: III (soft palate, base of uvula visible). Temporomandibular joint mobility: Good. Mouth: Within normal limits, Teeth ( Within normal limits ). Head: Normocephalic. Respiratory: Lungs are clear to auscultation. Cardiovascular: Normal rate, Regular rhythm, No murmur. Neurologic: Alert, Oriented. Anesthesiologist Assessment and Plan Problems: No active cardiac conditions, No previous anesthetic complications, No a/w concerns. ASA Classification: Class III. Anesthetic Plan: Premedication: Intravenous. Anesthetic technique discussed: Monitored anesthesia care. Induction discussed: Intravenously. Airway plan discussed: Nasal Cannula. Risks discussed: Nausea-vomiting, Headache, Sore throat, Dental injury, Eye injury, Allergic reaction, Serious complications, Nerve damage, Aspiration. Informed consent: Signed by patient. History, Physical Exam, Assessment and Plan Completed: 09/28/2022 14:26:00, DO Spencer Christopher Ross. Electronic Signature on File Electronically Reviewed/Signed by: Bala Spencer D.O. Author Signature Dt/Tm:09/28/2022 02:26 PM Anesthesiology CRJ Patient Care team information Care Team Personnel Name: DO Canseco Scott A Position: Referring DIRECT Member Role: Primary Care Provider Address: Address: [address] [place] [address] [place] Care Team Related Persons Name: DEWEY ESQUIVEL Address: [address] [phone]
--- OUTSIDE RECORDS SUMMARY | 2023-03-04 16:35 | External Medical Summary | Summary of Care ---
Author Name Unknown Organization [facility] Address [address] [place] [address] Phone [phone] Care Team Providers Care Grain Blender Name Role Phone Génesis Canseco DO Primary Care Provider [phone] Reason for Visit * Reason Comments Follow Up Pt here for multiple lesions of concern on face. * Evaluate & Treat - Unlimited Visits (Within 10 days (routine)) - Authorized Specialty Diagnoses / Procedures Referred By Jose rivero Referred To Contact Dermatology Diagnoses Skin lesion of neck Génesis Canseco DO [address] [place] [address] Referral ID Status Reason Start Date Expiration Date Visits Requested Visits Authorized [id number] Authorized Specialty Services Required 08/19/[phone] Encounter Details Date Type Department Care Team Description 09/27/2022 Office Visit [place]ermatology[address] [place] [address] Laure Arias PA-C [address] [place] [address] [place] [address] Seborrheic keratosis* Allergies Active Allergy Reactions Severity [...] Tablet by mouth every evening. 0 Active Albion-3 Fatty Acids (ULTRA OMEGA 3) 952 MG CAPSIndications:Dy slipidemia, goal LDL below 100 One tab twice daily 180 Cap 1 04/19/2018 Active Coenzyme Q10 300 MG Oral Wafer Take 600 mg by mouth once. 0 Active DHEA 50 MG Oral Tablet Take 50 mg by mouth daily. 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 Overview: Hastings's esophagus: egd by Dr Grant () f/u EGD 2001- per pt Cyst of kidney, acquired Overview: followed at [place] documented as of this encounter (statuses as [...] 3.4 by CTA 08/09/2012 [employer] Other*[id number] 201005/24/2016 Shortness of breath 02/22/2011 12/08/2016 Aortocoronary [...] at Date Recorded Male 08/03/2022 9:25 AM EDT Job Start Date Occupation Industry Not on file Not on file Not on file documented as of this encounter Progress Notes * Kimberly Sutton MD - 09/27/2022 3:25 PM EDT I have seen and examined the patient via teledermatology review of chart note and photos with Laure Arias PA-C. I have reviewed and agree with the assessment and plan. Kimberly Sutton MD * Laure Arias PA-C - 09/27/2022 11:15 AM EDT SUBJECTIVE: History of Present Illness: Hubert Persaud is a 82 year old male seen today for lesion. Previous office visit: 02/22/2022 Last attempted treatments include: NONE Full skin exam 03/08 Lesions on face (behind ears and L mormon), present at last office visit. Itchy at [...] NONE Reviewed, same day as visit, 0 [facility] Dermatology lab work(s)/pathology report(s) as well as [...] Take 1 Tablet by mouth every evening. Albion-3 Fatty Acids (ULTRA OMEGA 3) 952 MG [...] Laure Arias PA-C 09/27/2022 11:15 AM Ref: SELF[[id number]] NO STREET ADDRESS AVAILABLE None (office) None (fax) PCP: GÉNESIS CANSECO [address] [place] [address] [phone] documented in this encounter Nursing Notes * Liss Gardner LPN - 09/27/2022 11:18 AM EDT Patient identified by full name and date of Chief Complaint Patient presents with Follow Up Pt here for multiple lesions of concern on face. documented in this encounter Plan of Treatment Upcoming Encounters Date Type Specialty Care Team Description 11/04/2022 Office Visit Nephrology Ryan Issa MD [address] [place] [address] 11/21/2022 Cardiac Studies Cardiac Studies 11/28/2022 Office Visit Gastroenterology Patricia Mejia CRNP [address] [place] [address] 12/22/2022 Office Visit Dermatology Laure Arias PA-C [address] [place] [address] [place] [address] 01/06/2023 Office Visit Family Medicine Génesis Canseco DO [address] [place] [address] 02/23/2023 Office Visit Dermatology Laure Arias PA-C [address] [place] [address] [place] [address] 02/27/2023 Office Visit Cardiology Bessy Gill PA-C [address] [place] [address] 03/15/2023 Office Visit [facility]phrology [facility] [address] [facility] [address] Health Maintenance Due Date Last Done Comments AAA ULTRASOUND YEARLY 09/08/2022 09/08/2021 , 08/23/2021, 08/25/2020, Additional history exists CKD PHOS USE SMARTSET 66095 10/11/202209/16, 03/18/2021, 03/02/2021, Additional history exists GFR 12/11/2022 06/13/2022, 05/19, 05/27/2022, Additional history exists CKD HGB USE SMARTSET 42381 06/13/202306/13, 06/13/2022, 06/06/2022, Additional history exists Depression [...] keratosis documented in this encounter Care Teams Grain Blender Relationship Specialty Start Date End Date Génesis Canseco, [address] [place] [address] PCP - General Internal Medicine 04/07/22 documented as of this encounter
--- OUTSIDE RECORDS SUMMARY | 2023-03-04 16:35 | External Medical Summary | Summary of Care ---
Author Name Unknown Organization [facility] Address [address] [facility] [place] [address] Phone [phone] Care Team Providers Care Equipment Monitor Phototypesetting Name Role Phone Yanick Canseco DO Primary Care Provider [phone] Reason for Visit * Reason Onset Date Comments Pre-op Clearance 09/02/2022 Encounter Details Date Type Department Care Team Description 09/02/2022 Telephone Cardiology, [facility] [address] [place] [address] Erwin Weiner MD [address] [place] [address] Pre-op Clearance Allergies Active Allergy Reactions Severity [...] Tablet by mouth every evening. 0 Active [place]-3 Fatty Acids (ULTRA OMEGA 3) 952 MG CAPSIndications:D yslipidemia, goal LDL below 100 One tab twice daily 180 Cap 1 04/19/2018 Active Coenzyme Q10 300 MG Oral Wafer Take 600 mg by mouth once. 0 Active DHEA 50 MG Oral Tablet Take 50 mg by mouth daily. 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 Husam Guerra at [facility]. . * Telephone Encounter - Archana Herndon CMA - 09/13/2022 4:23 PM EDT Sandrine called from [facility] General Surgery/Urology. Surgeon will not accept risk assessment from midlevel and is requesting statement from physician aswell signature. * Telephone Encounter - Manju Gotti LPN - 09/05/2022 1:05 PM EDT Faxed to [facility] per request. * Telephone Encounter - [...] 09/02/2022 2:08 PM EDT Fax received from [facility] General Surgery/Urology. Patient is scheduled [...] Visit Orthopedics Justin Lombardi MD [address] [facility] [place] [address] 09/27/2022 Office Visit Dermatology Laure Arias PA-C [address] [place] [address] [place] [address] 11/04/2022 Office Visit Nephrology Ryan Issa MD [address] [place] [address] 11/21/2022 Cardiac Studies Cardiac Studies 11/28/2022 Office Visit Gastroenterology Patricia Mejia CRNP [address] [place] [address] 01/06/2023 Office Visit Family Medicine Yanick Canseco, [address] [place] [address] 02/23/2023 Office Visit Dermatology Laure Arias PA-C [address] [place] [address] [place] [address] 02/27/2023 Office Visit Cardiology Bessy Gill PA-C [address] [place] [address] 03/15/2023 Office Visit Nephrology Ryan Issa MD [address] [place] [address] Health Maintenance Due Date Last Done Comments AAA ULTRASOUND YEARLY 09/08/2022 09/08/2021 , 08/23/2021, 08/25/2020, Additional history exists CKD PHOS USE SMARTSET 34012 10/11/202209/16, 03/18/2021, 03/02/2021, Additional history exists GFR 12/11/2022 06/13/2022, 05/19, 05/27/2022, Additional history exists CKD HGB USE SMARTSET 61913 06/13/202306/13, 06/13/2022, 06/06/2022, Additional history exists Depression [...] filedocumented as of this encounter Care Teams Equipment Monitor Phototypesetting Relationship Specialty Start Date End Date Yanick Canseco, [address] [place] [address] PCP - General Internal Medicine 04/07/22 documented as of this encounter
--- OUTSIDE RECORDS SUMMARY | 2023-03-04 16:35 | External Medical Summary | Summary of Care ---
Author Name Unknown Organization [facility] Address [address] [facility] [place] [address] Phone [phone] Care Team Providers Care Member Of The Legislative Assembly Name Role Phone Yanick Canseco DO Primary Care Provider [phone] Reason for Visit * Reason Onset Date Comments Pre-op Clearance 09/02/2022 Encounter Details Date Type Department Care Team Description 09/02/2022 Telephone Cardiology, [facility] [address] [place] [address] Erwin Weiner MD [address] [place] [address] Pre-op Clearance Allergies Active Allergy Reactions Severity Noted Date Comments Cat Dander 09/25/2014 Dog Dander 09/25/2014 Dust 09/23/2015 Pollen 09/25/2014 Losartan Other (Please comment) 03/02/2021 Hyperkalemia Morphine Nausea/vomiting Low 12/13/2017 Ragweed 09/25/2014 documented as of this encounter (statuses as of 09/15/2022) Medications Medication Sig Dispensed Refills Start Date [...] Tablet by mouth every evening. 0 Active [place]-3 Fatty Acids (ULTRA OMEGA 3) 952 MG CAPSIndications:D yslipidemia, goal LDL below 100 One tab twice daily 180 Cap 1 04/19/2018 Active Coenzyme Q10 300 MG Oral Wafer Take 600 mg by mouth once. 0 Active DHEA 50 MG Oral Tablet Take 50 mg by mouth daily. 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 Surgeon will not accept risk assessment from midlevel and is requesting statement from physician aswell signature. * Telephone Encounter - Manju Gotti LPN - 09/05/2022 1:05 PM EDT Faxed to [facility] per request. * Telephone Encounter - [...] 09/02/2022 2:08 PM EDT Fax received from [facility] General Surgery/Urology. Patient is scheduled for Stage [...] Lombardi MD [address] [place] [address] 09/27/2022 Office Visit Dermatology Laure Arias PA-C [address] [place] [address] [place] [address] 11/04/2022 Office Visit Nephrology Ryan Issa MD [address] [place] [address] 11/21/2022 Cardiac Studies Cardiac Studies 11/28/2022 Office Visit Gastroenterology Patricia Mejia CRNP [address] [place] [address] 01/06/2023 Office Visit Family Medicine Yanick Canseco, [address] [place] [facility] [place] [address] 02/23/2023 Office Visit Dermatology Laure Arias PA-C [address] [place] [address] [place] [address] 02/27/2023 Office Visit Cardiology Bessy Gill PA-C [address] [place] [address] 03/15/2023 Office Visit Nephrology Ryan Issa MD [address] [place] [address] Health Maintenance Due Date Last Done Comments AAA ULTRASOUND YEARLY 09/08/2022 09/08/2021 , 08/23/2021, 08/25/2020, Additional history exists CKD PHOS USE SMARTSET 39146 10/11/202209/16, 03/18/2021, 03/02/2021, Additional history exists GFR 12/11/2022 06/13/2022, 05/19, 05/27/2022, Additional history exists CKD HGB USE SMARTSET 32867 06/13/202306/13, 06/13/2022, 06/06/2022, Additional history exists Depression [...] filedocumented as of this encounter Care Teams Member Of The Legislative Assembly Relationship Specialty Start Date End Date Yanick Canseco, [address] [place] [address] PCP - General Internal Medicine 04/07/22 documented as of this encounter
--- OUTSIDE RECORDS SUMMARY | 2023-03-04 16:35 | External Medical Summary | Summary of Care ---
Author Name Unknown Organization [facility] Address [address] [facility] [place] [address] Phone [phone] Care Team Providers Care Jury Consultant Name Role Phone Yanick Canseco DO Primary Care Provider [phone] Reason for Visit * Reason Onset Date Comments Status Check 10/03/2022 Encounter Details Date Type Department Care Team Description 10/03/2022 Telephone Gastroenterology, [facility] [address] [place] [address] William Quintero CRNP [address] [place] [address] Status Check Allergies Active Allergy Reactions Severity Noted Date Comments Cat Dander 09/25/2014 Dog Dander 09/25/2014 Dust 09/23/2015 Pollen 09/25/2014 Losartan Other (Please comment) 03/02/2021 Hyperkalemia Morphine Nausea/vomiting Low 12/13/2017 Ragweed 09/25/2014 documented as of this encounter (statuses as of 10/03/2022) Medications Medication Sig Dispensed Refills Start Date [...] Tablet by mouth every evening. 0 Active [place]-3 Fatty Acids (ULTRA OMEGA 3) 952 MG CAPSIndications:Dy slipidemia, goal LDL below 100 One tab twice daily 180 Cap 1 04/19/2018 Active Coenzyme Q10 300 MG Oral Wafer Take 600 mg by mouth once. 0 Active DHEA 50 MG Oral Tablet Take 50 mg by mouth daily. 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 Overview: Hastings's esophagus: egd by Dr Grant () f/u EGD 2001- neg per pt Cyst of kidney, acquired Overview: followed at [place] documented as of this encounter (statuses as of 10/03/2022) Resolved Problems Problem Noted Date Resolved Date [...] 3.4 by CTA 08/09/2012 [employer] Other*[id number] 201005/24/2016 Shortness of breath 02/22/2011 12/08/2016 Aortocoronary [...] as of this encounter (statuses as of 10/03/2022) Immunizations Name Administration Dates Next Due COVID-19 mRNA, LNP-s, No Pre serve, 2-Dose Series (Moderna) 06/10/2020,05/13/2020 COVID-19, LNP-s, No Preserve , Adiel-sucrose, Ages 12+ (Pfizer) 12/06/2021 Covid-19 Mrna, Lnp-s, No Pre serve, Booster (Moderna) 02/24/2021 Covid-19, Mrna, Lnp-s, Pf, B ivalent, 30 Mcg, IM, 12 yrs and above ([employer]) 04/19/2022 HEP A - Hepatitis A (Adult [...] encounter Miscellaneous Notes * Telephone Encounter - Donna Guy CPhT - 10/03/2022 8:26 AM EDT Pt calling to request Cholestyramine 4 GM Oral Packet (Questran). Informed pt that RX is available at their pharmacy. Pt verbalized understanding and stated they will check with their pharmacy regarding this medication. Thank you, Donna Guy Business Partner [facility] ([facility]) (formerly Telepharmacy) 10/03/2022, 8:26 AM * Telephone Encounter - SHAW Cruz - 10/03/2022 8:23 AM EDT Pt calling to request Cholestyramine 4 GM Oral Packet . Informed pt that RX is available at their pharmacy. Pt verbalized understanding and stated they will check with their pharmacy regarding this medication. Thank you, Cindy Navarrete CPhT Accountant Cost [facility] ([facility]) (formerly Telepharmacy) 10/03/2022,8:23 AM documented in this encounter Plan of Treatment Upcoming Encounters Date Type Specialty Care Team Description 11/04/2022 Office Visit Nephrology Ryan Issa MD [address] [facility] [place] [address] 11/21/2022 Cardiac Studies Cardiac Studies 11/28/2022 Office Visit Gastroenterology Patricia Mejia CRNP [address] [place] [address] 12/22/2022 Office Visit Dermatology Laure Arias PA-C [address] [place] [address] [place] [address] 01/06/2023 Office Visit Family Medicine Yanick aCnseco, [address] [facility] [address] 02/23/2023 Office Visit Dermatology Laure Arias PA-C [address] [place] [address] [place] [address] 02/27/2023 Office Visit Cardiology Bessy Gill PA-C [address] [place] [address] 03/15/2023 Office Visit Nephrology Ryan Issa MD [address] [facility] [place] [address] Health Maintenance Due Date Last Done Comments AAA ULTRASOUND YEARLY 09/08/2022 09/08/2021 , 08/23/2021, 08/25/2020, Additional history exists CKD PHOS USE SMARTSET 85815 10/11/202209/16, 03/18/2021, 03/02/2021, Additional history exists GFR 12/11/2022 06/13/2022, 05/19, 05/27/2022, Additional history exists CKD HGB USE SMARTSET 77433 06/13/202306/13, 06/13/2022, 06/06/2022, Additional history exists Depression [...] filedocumented as of this encounter Care Teams Jury Consultant Relationship Specialty Start Date End Date Yanick Canseco, [address] [facility] [place] [address] PCP - General Internal Medicine 04/07/22 documented as of this encounter
--- OUTSIDE RECORDS SUMMARY | 2023-03-04 16:35 | External Medical Summary | Summary of Care ---
Author Name Unknown Organization [facility] Address [address] [place] [address] Phone [phone] Care Team Providers Care Cmm Programmer Name Role Phone Génesis Canseco DO Primary Care Provider [phone] Reason for Visit * Reason Onset Date Comments Medication Refill 09/07/2022 Encounter Details Date Type Department Care Team Description 09/07/2022 Refill Family Practice [address] [facility] [address] [place] [address] Génesis Canseco DO [address] [place] [address] Atrial fibrillation with RVR ([facility]) Allergies Active Allergy Reactions Severity Noted Date [...] Tablet by mouth every evening. 0 Active [place]-3 Fatty Acids (ULTRA OMEGA 3) 952 MG CAPSIndications:D yslipidemia, goal LDL below 100 One tab twice daily 180 Cap 1 04/19/2018 Active Coenzyme Q10 300 MG Oral Wafer Take 600 mg by mouth once. 0 Active DHEA 50 MG Oral Tablet Take 50 mg by mouth daily. 0 Active Nitroglycerin 0.4 MG Sublingual Tablet Sublingual (Nitrostat)Indica tions:Atheroscler osis of [place] coronary artery of [place] heart [...] the evening 90 Tablet 5 09/08/2022 Active Carvedilol 12.5 MG Oral Tablet (Coreg)Indication [...] Cyst of kidney, acquired Overview: followed at [place] documented as of this encounter (statuses as [...] 3.4 by CTA 08/09/2012 [employer] Other*[id number] 201005/24/2016 Shortness of breath 02/22/2011 12/08/2016 Aortocoronary [...] 30 Mcg, IM, 12 yrs and above ([employer] 04/19/2022 HEP A - Hepatitis A (Adult [...] encounter Miscellaneous Notes * Telephone Encounter - SHAW Cruz - 09/15/2022 8:13 AM EDT Pt calling to request Carvedilol 12.5 MG Oral Tablet . Informed pt that RX is available at their pharmacy. Pt verbalized understanding and stated they will check with their pharmacy regarding this medication. Thank you, Cindy Navarretecommercial construction estimator Compliance Manager navdeep [facility] 09/15/2022,8:13 AM * Telephone Encounter - Gisselle Best [facility] - 09/08/2022 5:42 AM EDTSigned Prescriptions: Disp Refills Carvedilol 12.5 MG Oral Tablet (Coreg) 90 Tab*5 Sig: Take 25 mg in the morning and 12.5 mg in the evening Authorizing Provider: GÉNESIS CANSECO Ordering User: GISSELLE BEST * Telephone Encounter - SHAW Cruz Tech - 09/07/2022 9:49 AM EDT Did you pend patient's preferred pharmacy and medication before forwarding?yes Pharmacy: [facility] [place] Pending Prescriptions: Disp Refills Carvedilol 12.5 MG Oral Tablet (Coreg) 90 Tab*1 Sig: Take 25 mg in the morning and 12.5 mg in the evening Last Visit: 09/05/2022 (in office), Visit date not found (telemedicine) Next Visit: 01/06/2023 If no future appointments scheduled, and last appointment is greater than a year ago, please schedule patient for a follow-up appointment Last date the medication was ordered: 05-06-22 Is this request for a controlled substance?No Urine Drug Screen:No results found. However, due to the size of the patient record, not all encounters were searched. Please check Results Review for a complete set of results. Patient Phone Numbers Labs: Lab Results Component Value Date/Time CREAT 1.5 (H) 06/13/2022 12:29 PM CREAT 1.5 (H) 02/19/2020 11:37 AM CREAT 1.1 06/19/1996 09:00 AM POTASSIUM 4.8 06/13/2022 12:29 PM POTASSIUM 5.0 02/21/2020 12:20 PM POTASSIUM 4.4 06/19/1996 09:00 AM TSH 2.66 09/05/2022 10:57 AM TSH 2.03 04/21/2020 10:27 AM LDLCALC 26 09/05/2022 10:57 AM LDLCALC 37 09/27/2019 12:15 PM LDLCALC 131. (H) 06/19/1996 09:00 AM LDLDIRECT 58 09/20/2021 07:57 AM LDLDIRECT NOT APPLICABLE 09/27/2019 12:15 PM ALT 19 09/05/2022 10:57 AM ALT 14 12/02/2019 03:00 PM ALT 16 (L) 06/19/1996 09:00 AM HGBA1C 6.1 (H) 09/05/2022 10:57 AM HGBA1C 5.9 (H) 02/19/2020 11:37 AM documented in this encounter Plan of Treatment Upcoming Encounters Date Type Specialty Care Team Description 09/26/2022 Office Visit Orthopedics Justin Lombardi MD [address] [place] [address] 09/27/2022 Office Visit Dermatology Laure Arias PA-C [address] [place] [address] [place] [address] 11/04/2022 Office Visit Nephrology Ryan Issa MD [address] [place] [address] 11/21/2022 Cardiac Studies Cardiac Studies 11/28/2022 Office Visit Gastroenterology Patricia Mejia CRNP [address] [place] [address] 01/06/2023 Office Visit Family Medicine Génesis Canseco, [address] [place] [address] 02/23/2023 Office Visit Dermatology Laure Arias PA-C [address] [place] [address] [place] [address] 02/27/2023 Office Visit Cardiology Bessy Gill PA-C [address] [place] [address] 03/15/2023 Office Visit Nephrology Ryan Issa MD [address] [place] [address] Health Maintenance Due Date Last Done Comments AAA ULTRASOUND YEARLY 09/08/2022 09/08/2021 , 08/23/2021, 08/25/2020, Additional history exists CKD PHOS USE SMARTSET 40039 10/11/202209/16, 03/18/2021, 03/02/2021, Additional history exists GFR 12/11/2022 06/13/2022, 05/19, 05/27/2022, Additional history exists CKD HGB USE SMARTSET 24951 06/13/202306/13, 06/13/2022, 06/06/2022, Additional history exists Depression [...] fibrillation documented in this encounter Care Teams Cmm Programmer Relationship Specialty Start Date End Date Génesis Canseco, [address] [place] [address] PCP - General Internal Medicine 04/07/22 documented as of this encounter
--- OUTSIDE RECORDS SUMMARY | 2023-03-04 16:35 | External Medical Summary | Summary of Care ---
Author Name Unknown Organization [facility] Address [address] [facility] [address] Phone [phone] Care Team Providers Care Environmental Health Technologist Name Role Phone Yanick Canseco DO Primary Care Provider [phone] Reason for Visit * Reason Onset Date Comments Status Check 10/03/2022 Encounter Details Date Type Department Care Team Description 10/03/2022 Telephone Gastroenterology, [facility] [address] [place] [address] William Quintero CRNP [address] [place] [address] Status Check Allergies Active Allergy Reactions Severity [...] Tablet by mouth every evening. 0 Active [place]-3 Fatty Acids (ULTRA OMEGA 3) 952 MG CAPSIndications:Dy slipidemia, goal LDL below 100 One tab twice daily 180 Cap 1 04/19/2018 Active Coenzyme Q10 300 MG Oral Wafer Take 600 mg by mouth once. 0 Active DHEA 50 MG Oral Tablet Take 50 mg by mouth daily. 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 Thank you, Donna Guy Division Operations Specialist [facility] ([facility]) (formerly Telepharm[facility]) 10/03/2022, 8:26 AM * Telephone Encounter - SHAW Cruz - 10/03/2022 8:23 AM EDT Pt calling to request Cholestyramine 4 GM Oral Packet . Informed pt that RX is available at their pharmacy. Pt verbalized understanding and stated they will check with their pharmacy regarding this medication. Thank you, Cindy Navarrete CPhT Assistant Professor Of Music [facility] ([facility]) (formerly Telepharmacy) 10/03/2022,8:23 AM documented in this encounter Plan of Treatment Upcoming Encounters Date Type Specialty Care Team Description 11/04/2022 Office Visit Nephrology Ryan Issa MD [address] [place] [address] 11/21/2022 Cardiac Studies Cardiac Studies 11/28/2022 Office Visit Gastroenterology Patricia Mejia CRNP [address] [place] [address] 12/22/2022 Office Visit Dermatology Laure Arias PA-C [address] [place] [address] [place] [address] 01/06/2023 Office Visit Family Medicine Yanick Canseco, [address] [place] [facility] [place] [address] 02/23/2023 Office Visit Dermatology Laure Arias PA-C [address] [place] [address] [place] [address] 02/27/2023 Office Visit Cardiology Bessy Gill PA-C [address] [place] [address] 03/15/2023 Office Visit Nephrology Ryan Issa MD [address] [place] [facility] [place] [address] Health Maintenance Due Date Last Done Comments AAA ULTRASOUND YEARLY 09/08/2022 09/08/2021 , 08/23/2021, 08/25/2020, Additional history exists CKD PHOS USE SMARTSET 00531 10/11/202209/16, 03/18/2021, 03/02/2021, Additional history exists GFR 12/11/2022 06/13/2022, 05/19, 05/27/2022, Additional history exists CKD HGB USE SMARTSET 78646 06/13/202306/13, 06/13/2022, 06/06/2022, Additional history exists Depression [...] as of this encounter Care Teams Environmental Health Technologist Relationship Specialty Start Date End Date Yanick Canseco, [address] [place] [address] PCP - General Internal Medicine 04/07/22 documented as of this encounter
--- OUTSIDE RECORDS SUMMARY | 2023-03-04 16:35 | External Medical Summary | Summary of Care ---
Author Name Unknown Organization [facility] Address [address] [place] [address] Phone [phone] Care Team Providers Care Proof Coin Collector Name Role Phone Yanick Canseco DO Primary Care Provider [phone] Encounter Details Date Type Department Care Team Description 09/29/2022 Paid Search AnalystButton Reclaimer Practice [facility], [address] [place] [address] Pinky French, RN Medical home patient encounter* Allergies Active Allergy Reactions Severity Noted Date Comments Cat Dander 09/25/2014 Dog Dander 09/25/2014 Dust 09/23/2015 Pollen 09/25/2014 Losartan Other (Please comment) 03/02/2021 Hyperkalemia Morphine Nausea/vomiting Low 12/13/2017 Ragweed 09/25/2014 documented as of this encounter (statuses as of 09/29/2022) Medications Medication Sig Dispensed Refills Start Date [...] Tablet by mouth every evening. 0 Active [place]-3 Fatty Acids (ULTRA OMEGA 3) 952 MG [...] as of this encounter (statuses as of 09/29/2022) Active Problems Problem Noted Date Infrarenal abdominal [...] Cyst of kidney, acquired Overview: followed at [place] documented as of this encounter (statuses as of 09/29/2022) Resolved Problems Problem Noted Date Resolved Date [...] 3.4 by CTA 08/09/2012 [employer] Other*[id number] 201005/24/2016 Shortness of breath 02/22/2011 12/08/2016 Aortocoronary [...] as of this encounter (statuses as of 09/29/2022) Immunizations Name Administration Dates Next Due COVID-19 [...] Progress Notes * Pinky French RN - 09/29/2022 11:00 AM EDT Paid Search Analyst Progress Note: Date: 09/29/22 Assgned Patient Tier: 3 Call for goal review Connected with patient via telephone. Verified patient name/. Advised patient that call is beingrecorded for quality and training purposes. Assessment: Pt. noted the following: Pt was seen a for sacral nerve stimulator 09/21/22. Denies issues with this at this time. He was also seen by dermatology for lesions on his face. Pt reports he has received his catheters at this time. He continues to follow with [facility] for urology. Reviewed with him s/s of UTIand pt verbalized understanding. Pt is scheduled to be seen by nephrology in October, Cardiology and GI in November and with PCP again in December. Did you receive an alert for an annual wellness visit? No Is this call for a hospital, assisted or rehab facility discharge to home? No Medication Reconciliation: Medication Reconciliation completed: yes Review of Current goals: Discussed the following patient-centered CM goals with the patient during this discussion: -*Personal Patient Goal: To go to his vacation home. -Status: Completed -: Patient will have issues addressed -Status: On Track received catheters. -CAD: Achieve successful management of CAD -Status: Not Started new goal created on this date. COPD Patient: No CHF Patient: NO CM Plan: Reviewed 3 Red Flags with patient. Advised to call CM with any of the following: Red Flag 1: bladder pain Red Flag 2: changes in urine color Red Flag 3: fevers or chills. Remote Patient Monitoring: At this time, RPM not offered/considered for patient due to pt has does not want at this time. Monitors BP at home. . Plan for Future Contacts: Plan to follow up 1-3 months to check progress on the following goals/needs: Health status. Planned contacts from the following parties [...] Office Visit Nephrology Ryan Issa MD [address] [facility] [place] [address] 11/21/2022 Cardiac Studies Cardiac Studies 11/28/2022 Office Visit Gastroenterology Patricia Mejia CRNP [address] [place] [address] 12/22/2022 Office Visit Dermatology Laure Arias PA-C [address] [place] [address] [place] [address] 01/06/2023 Office Visit Family Medicine [facility]seco, [address] [facility] [address] 02/23/2023 Office Visit Dermatology Laure Arias PA-C [address] [place] [address] [place] [address] 02/27/2023 Office Visit Cardiology Bessy Gill PA-C [address] [place] [address] 03/15/2023 Office Visit Nephrology Ryan Issa MD [address] [facility] [place] [address] Health Maintenance Due Date Last Done Comments AAA ULTRASOUND YEARLY 09/08/2022 09/08/2021 , 08/23/2021, 08/25/2020, Additional history exists CKD PHOS USE SMARTSET 06615 10/11/202209/16, 03/18/2021, 03/02/2021, Additional history exists GFR 12/11/2022 06/13/2022, 05/19, 05/27/2022, Additional history exists CKD HGB USE SMARTSET 11778 06/13/202306/13, 06/13/2022, 06/06/2022, Additional history exists Depression [...] examination documented in this encounter Care Teams Proof Coin Collector Relationship Specialty Start Date End Date Yanick Canseco, [address] [place] [address] PCP - General Internal Medicine 04/07/22 documented as of this encounter
--- OUTSIDE RECORDS SUMMARY | 2023-03-04 16:36 | External Medical Summary | Summary of Care ---
Author Name Unknown Organization [facility] Address [address] [place] [facility] [place] [place] [address] Phone [phone] Care Team Providers Care Women'S Lacrosse Coach Name Role Phone Yanick Canseco DO Primary Care Provider [phone] Reason for Visit * Reason Comments Outpatient Testing Encounter Details Date Type Department Care Team Description 09/06/2022 [facility] [place] [id number] [facility] [address] [facility] [place] [address] Hypertensive kidney disease with stage 3b chronic kidney disease (HCC) Allergies Active Allergy Reactions Severity Noted Date Comments Cat Dander 09/25/2014 Dog Dander 09/25/2014 Dust 09/23/2015 Pollen 09/25/2014 Losartan Other (Please comment) 03/02/2021 Hyperkalemia Morphine Nausea/vomiting Low 12/13/2017 Ragweed 09/25/2014 documented as of this encounter (statuses as of 09/06/2022) Medications Medication Sig Dispensed Refills Start Date [...] Tablet by mouth every evening. 0 Active [place]-3 Fatty Acids (ULTRA OMEGA 3) 952 MG CAPSIndications:Dy slipidemia, goal LDL below 100 One tab twice daily 180 Cap 1 04/19/2018 Active Coenzyme Q10 300 MG Oral Wafer Take 600 mg by mouth once. 0 Active DHEA 50 MG Oral Tablet Take 50 mg by mouth daily. 0 Active Nitroglycerin 0.4 MG Sublingual Tablet Sublingual (Nitrostat)Indicat ions:Atheroscleros is of [place] coronary artery of [place] heart without angina pectoris Place under the [...] the day. 100 Capsule 3 04/20/2022 Active Carvedilol 12.5 MG Oral Tablet (Coreg)Indications :Atrial fibrillation with RVR (HCC) Take 25 mg in the morning and 12.5 mg in the evening 90 Tablet 1 05/06/2022 Active Levothyroxine Sodium 150 MCG Oral Tablet [...] with liquid.. 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 Overview: Hastings's esophagus: egd by Dr Grant () f/u EGD 2001- neg per pt Cyst of kidney, acquired Overview: followed at [place] documented as of this encounter (statuses as of 09/06/2022) Resolved Problems Problem Noted Date Resolved Date [...] 3.4 by CTA 08/09/2012 [employer] Other*[id number] 201005/24/2016 Shortness of breath 02/22/2011 12/08/2016 Aortocoronary [...] as of this encounter (statuses as of 09/06/2022) Immunizations Name Administration Dates Next Due COVID-19 mRNA, LNP-s, No Pre serve, 2-Dose Series (Moderna) 06/10/2020,05/13/2020 COVID-19, LNP-s, No Preserve , Adiel-sucrose, Ages 12+ (Pfizer) 12/06/2021 Covid-19 Mrna, Lnp-s, No Pre serve, Booster (Moderna) 02/24/2021 Covid-19, Mrna, Lnp-s, Pf, B ivalent Booster, 30 Mcg, IM, 12 yrs and above ([employer]ite[employer]) 04/19/2022 HEP A - Hepatitis A (Adult [...] Visit Orthopedics Justin Lombardi MD [address] [place] [address] 09/27/2022 Office Visit Dermatology Laure Arias PA-C [address] [place] [address] [place] [address] 11/04/2022 Office Visit Nephrology Ryan Issa MD [address] [place] [address] 11/21/2022 Cardiac Studies Cardiac Studies 11/28/2022 Office Visit Gastroenterology Patricia Mejia CRNP [address] [place] [address] 01/06/2023 Office Visit Family Medicine Yanick Canseco, DO [address] [place] [address] 02/23/2023 Office Visit Dermatology Laure Arias PA-C [address] [place] [address] [place] [address] 02/27/2023 Office Visit Cardiology Bessy Gill PA-C [address] [place] [address] 03/15/2023 Office Visit Nephrology Ryan Issa MD [address] [facility], [place] [address] Pending Results Name Type Priority Associated Diagnoses Date /Time ALBUMIN / CREATININE RATIO, URINE Lab Routine Hypertensive kidney disease with stage 3b chronic kidney disease (HCC) 09/06/2022 11:30 AM EDT Health Maintenance Due Date Last Done Comments AAA ULTRASOUND YEARLY 09/08/2022 09/08/2021 , 08/23/2021, 08/25/2020, Additional history exists Albumin/Creatinine Ratio 09/21/2022 022, 09/10/2013, 03/25/2011 CKD PHOS USE SMARTSET 42068 10/11/202209/16, 03/18/2021, 03/02/2021, Additional history exists GFR 12/11/2022 06/13/2022, 05/19, 05/27/2022, Additional history exists CKD HGB USE SMARTSET 17409 06/13/202306/13, 06/13/2022, 06/06/2022, Additional history exists Depression Screening, Annual for Pts 12 and Over 09/06/2023 09/05/2022 HbA1c 09/06/2023 09/05/2022, 02/16, 03/02/2021, Additional history exists TSH 09/06/2023 09/05/2022, 05/18, 09/20/2021, Additional history exists DTaP,Tdap,and Td Vaccines (2 [...] as of this encounter Visit Diagnoses Diagnosis Hypertensive kidney disease with stage 3b chronic kidney disease (HCC) documented in this encounter Care Teams Women'S Lacrosse Coach Relationship Specialty Start Date End Date Yanick Canseco, [address] [place] [address] PCP - General Internal Medicine 04/07/22 documented as of this encounter
--- OUTSIDE RECORDS SUMMARY | 2023-03-04 16:36 | External Medical Summary ---
Author Name Unknown Address Unknown Organization K01:LABORATORY [facility] - [address] [facility] [address] Laboratory Report Ordering Provider Test Date Status CULLEN CAPPS 09/05/2022 10:57:35 Final Observation Date Value Abnormality Reference (Units ) Status Triglyceride 09/05/2022 10:57:35 90 <=174 ( mg/dL) Final Triglyceride Reference Range s (mg/dL):
<150 Acceptable
150-174 Borderline high
175-499 High
>=500 Very high Cholesterol 09/05/2022 10:57:35 99 <200 (mg /dL) Final Total Cholesterol Reference Ranges (mg/dL):
<200 Desirable
200-239 Borderline high
>=240 High HDL 09/05/2022 10:57:35 55 >39 (mg/dL ) Final HDL Cholesterol Reference Ra nges (mg/dL):
>=60 High (Desirable)
<50 Low (Undesirable) For Females
<40 Low (Undesirable) For Males NON-HDL CHOLESTEROL 09/05/2022 10:57:35 44 <=159 (mg/dL) Final Non-HDL Cholesterol Referenc e Range (mg/dL):
<100 Target level for high risk ASCVD patient
<130 Optimal for general population
130-159 Near optimal for general population
160-189 Borderline High
190-219 High
>=220 Very High LDL, (calculated) 09/05/2022 10:57:35 26 <= 129 (mg/dL) Final LDL Cholesterol Reference Ra nges (mg/dL):
<70 Target level for high risk ASCVD patient
<100 Optimal for general population
100-129 Near optimal for general population
130-159 Borderline high
160-189 High
>=190 Very high Performing Location LABORATORY [facility] - [address] [facility] [address]
--- OUTSIDE RECORDS SUMMARY | 2023-03-04 16:36 | External Medical Summary | Summary of Care ---
Author Name Unknown Organization [facility] Address [address] [place] [address] Phone [phone] Care Team Providers Care Business Process Representative Name Role Phone Yanick Cnaseco DO Primary Care Provider [phone] Reason for Visit * Reason Onset Date Comments Medication Question 09/06/2022 Eliquis Encounter Details Date Type Department Care Team Description 09/06/2022 Telephone Family Practice [facility] [address] [place] [id number] Yanick Canseco [address] [place] [address] Medication Question (Eliquis) Allergies Active Allergy Reactions Severity Noted Date [...] Tablet by mouth every evening. 0 Active [place]-3 Fatty Acids (ULTRA OMEGA 3) 952 MG CAPSIndications:Dy slipidemia, goal LDL below 100 One tab twice daily 180 Cap 1 04/19/2018 Active Coenzyme Q10 300 MG Oral Wafer Take 600 mg by mouth once. 0 Active DHEA 50 MG Oral Tablet Take 50 mg by mouth daily. 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 Only generic alternative is to Eliquis is to be on warfarin. He is okay with current copay but was looking to save money if possible as copays are starting to add up. Gia Kline, Pharm D, BCACP Clinical Pharmacist [facility] 09/06/2022, 1:35 PM Ph. [phone] * Telephone Encounter - EMILY Tena - 09/06/2022 10:19 AM EDT Would like to speak to Gia about Eliquis Wants to know if its generic documented in this encounter Plan of Treatment Upcoming Encounters Date Type Specialty Care Team Description 09/26/2022 Office Visit Orthopedics Justin Lombardi MD [address] [place] [address] 09/27/2022 Office Visit Dermatology Laure Arias PA-C [address] [place] [address] [place] [address] 11/04/2022 Office Visit Nephrology Ryan Issa MD [address] [place] [address] 11/21/2022 Cardiac Studies Cardiac Studies 11/28/2022 Office Visit Gastroenterology Patricia Mejia CRNP [address] [place] [address] 01/06/2023 Office Visit Family Medicine Yanick Canseco DO [address] [place] [address] 02/23/2023 Office Visit Dermatology Laure Arias PA-C [address] [place] [address] [place] [address] 02/27/2023 Office Visit Cardiology Bessy Gill PA-C [address] [place] [address] 03/15/2023 Office Visit Nephrology Ryan Issa MD [address] [place] [address] Health Maintenance Due Date Last Done Comments AAA ULTRASOUND YEARLY 09/08/2022 09/08/2021 , 08/23/2021, 08/25/2020, Additional history exists Albumin/Creatinine Ratio 09/21/2022 022, 09/10/2013, 03/25/2011 CKD PHOS USE SMARTSET 38701 10/11/202209/16, 03/18/2021, 03/02/2021, Additional history exists GFR 12/11/2022 06/13/2022, 05/19, 05/27/2022, Additional history exists CKD HGB USE SMARTSET 04974 06/13/202306/13, 06/13/2022, 06/06/2022, Additional history exists Depression [...] filedocumented as of this encounter Care Teams Business Process Representative Relationship Specialty Start Date End Date Yanick Canseco, [address] [place] [address] PCP - General Internal Medicine 04/07/22 documented as of this encounter
--- OUTSIDE RECORDS SUMMARY | 2023-03-04 16:36 | External Medical Summary ---
Author Name Unknown Address Unknown Organization K01:LABORATORY [facility] - [address] [place] [address] Laboratory Report Ordering Provider Test Date Status GÉNESISCULLEN 09/06/2022 11:30:02 Final Normal: <30 mg/g creatinine< br/>High: 30-300 mg/g creatinine
Very High: >300 mg/g creatinine
Nephrotic: >2200 mg/g creatinine Observation Date Value Abnormality Reference (Units ) Status Albumin, Urine 09/06/2022 11:30:02 122.01 (mg/dL) Final Creatinine, Urine 09/06/2022 11:30:02 81 (mg/dL) Final Albumin/Creatinine [Mass Ratio] in Urine 09/06/2022 11:30:02 1506 Above high normal <30 (mg/g Creat) Final Performing Location LABORATORY [facility] - [address] [place] [address]
--- OUTSIDE RECORDS SUMMARY | 2023-03-04 16:36 | External Medical Summary | Summary of Care ---
Author Name Unknown Organization [facility] Address [address] [facility] [place] [address] Phone [phone] Care Team Providers Care Paper Products Printer Name Role Phone Yanick Canseco DO Primary Care Provider [phone] Reason for Visit * Reason Onset Date Comments Pre-op Clearance 09/02/2022 Encounter Details Date Type Department Care Team Description 09/02/2022 Telephone Cardiology, [facility] [address] [place] [address] Erwin Weiner MD [address] [place] [address] Pre-op Clearance Allergies Active Allergy Reactions Severity Noted Date Comments Cat Dander 09/25/2014 Dog Dander 09/25/2014 Dust 09/23/2015 Pollen 09/25/2014 Losartan Other (Please comment) 03/02/2021 Hyperkalemia Morphine Nausea/vomiting Low 12/13/2017 Ragweed 09/25/2014 documented as of this encounter (statuses as of 09/05/2022) Medications Medication Sig Dispensed Refills Start Date [...] Tablet by mouth every evening. 0 Active [place]-3 Fatty Acids (ULTRA OMEGA 3) 952 MG CAPSIndications:Dy slipidemia, goal LDL below 100 One tab twice daily 180 Cap 1 04/19/2018 Active Coenzyme Q10 300 MG Oral Wafer Take 600 mg by mouth once. 0 Active DHEA 50 MG Oral Tablet Take 50 mg by mouth daily. 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 Overview: Hastings's esophagus: egd by Dr Grant () f/u EGD 2001- neg per pt Cyst of kidney, acquired Overview: followed at [place] documented as of this encounter (statuses as of 09/05/2022) Resolved Problems Problem Noted Date Resolved Date [...] 3.4 by CTA 08/09/2012 [employer] Other*[id number] 201005/24/2016 Shortness of breath 02/22/2011 12/08/2016 Aortocoronary [...] as of this encounter (statuses as of 09/05/2022) Immunizations Name Administration Dates Next Due COVID-19 mRNA, LNP-s, No Pre serve, 2-Dose Series (Moderna) 06/10/2020,05/13/2020 COVID-19, LNP-s, No Preserve , Adiel-sucrose, Ages 12+ (Pfizer) 12/06/2021 Covid-19 Mrna, Lnp-s, No Pre serve, Booster (Moderna) 02/24/2021 Covid-19, Mrna, Lnp-s, Pf, B ivalent Booster, 30 Mcg, IM, 12 yrs and above ([employer]) 04/19/2022 HEP A - Hepatitis A (Adult [...] encounter Miscellaneous Notes * Telephone Encounter - Manju Gotti LPN - 09/05/2022 1:05 PM EDT Faxed to [facility] per request. * Telephone Encounter - Bessy [...] interruption. Bessy Gill PA-C Department of Cardiology * Telephone Encounter - Archana Herndon CMA - 09/02/2022 2:08 PM EDT Fax received from [facility] General Surgery/Urology. Patient is scheduled for Stage [...] office visit note, and most recent EKG. (u): documented in this encounter Plan of Treatment Upcoming Encounters Date Type Specialty Care Team Description 09/26/2022 Office Visit Orthopedics Justin Lombardi MD [address] [place] [address] 09/27/2022 Office Visit Dermatology Laure Arias PA-C [address] [place] [address] [place] [address] 11/04/2022 Office Visit Nephrology Ryan Issa MD [address] [place] [facility] [place] [address] 11/21/2022 Cardiac Studies Cardiac Studies 11/28/2022 Office Visit Gastroenterology Patricia Mejia CRNP [address] [place] [address] 01/06/2023 Office Visit Family Medicine Yanick Canseco, [place] [address] 02/23/2023 Office Visit Dermatology Laure Arias PA-C [address] [place] [address] [place] [address] 02/27/2023 Office Visit Cardiology Bessy Gill PA-C [address] [place] [address] 03/15/2023 Office Visit Nephrology Ryan Issa MD [address] [place] [address] Health Maintenance Due Date Last Done Comments AAA ULTRASOUND YEARLY 09/08/2022 09/08/2021 , 08/23/2021, 08/25/2020, Additional history exists Albumin/Creatinine Ratio 09/21/2022 022, 09/10/2013, 03/25/2011 CKD PHOS USE SMARTSET 21141 10/11/202209/16, 03/18/2021, 03/02/2021, Additional history exists GFR - Renal Function 12/11/2022 06/13/2022, 06/06/2022, 05/27/2022, Additional history exists HgA1C 03/09/2023 03/09/2022, 02/15, 09/15/2020, Additional history exists TSH FOR THYROID MEDICATION MONITORING YEARLY 05/27/2023 05/27/2022, 09/20/2021, 03/29/2021, Additional history exists CKD HGB USE SMARTSET 71680 06/13/202306/13, 06/13/2022, 06/06/2022, Additional history exists Depression Screening, Annual for Pts 12 and Over 09/06/2023 09/05/2022 DTaP,Tdap,and Td Vaccines (2 - Td or [...] filedocumented as of this encounter Care Teams Paper Products Printer Relationship Specialty Start Date End Date Yanick Canseco, [address] [place] [address] PCP - General Internal Medicine 04/07/22 documented as of this encounter
--- OUTSIDE RECORDS SUMMARY | 2023-03-04 16:36 | External Medical Summary ---
Author Name Unknown Address Unknown Organization K01:LAB[facility]ATORY [facility] [place] - [facility] [address] [place] [address] Laboratory Report Ordering Provider Test Date Status CULLEN CAPPS 09/05/2022 10:57:35 Final Observation Date Value Abnormality Reference (Units ) Status Albumin 09/05/2022 10:57:35 4.1 3.8-5.0 (g/dL) Final AST (Aspartate aminotransferase) 09/05/2022 10:57:35 24 10-50 (U/L) Final Result may be falsely elevat ed due to hemolysis. Alk Phos 09/05/2022 10:57:35 49 35-130 (U/ L) Final ALT (Alanine aminotransferase) 09/05/2022 10:57:35 19 10-50 (U/L) Final Bilirubin, Total 09/05/2022 10:57:35 1.0 <=1 .2 (mg/dL) Final Bilirubin, Direct 09/05/2022 10:57:35 0.3 0. 0-0.3 (mg/dL) Final Protein 09/05/2022 10:57:35 6.5 6.0-8.3 (g /dL) Final Performing Location LABORATORY [facility] [place] - [facility] [place] [address]
--- OUTSIDE RECORDS SUMMARY | 2023-03-04 16:36 | External Medical Summary | Summary of Care ---
Author Name Unknown Organization [facility] Address [address] [place] [address] Phone [phone] Care Team Providers Care Prepress Specialist Name Role Phone Yanick Canseco DO Primary Care Provider [phone] Reason for Visit * Reason Onset Date Comments Test Results 09/07/202209/07 Encounter Details Date Type Department Care Team Description 09/07/2022 Telephone Family Practice [facility] [address] [place] [phone] Yanick Canseco [address] [place] [address] Test Results (09/07) Allergies Active Allergy Reactions Severity Noted Date Comments Cat Dander 09/25/2014 Dog Dander 09/25/2014 Dust 09/23/2015 Pollen 09/25/2014 Losartan Other (Please comment) 03/02/2021 Hyperkalemia Morphine Nausea/vomiting Low 12/13/2017 Ragweed 09/25/2014 documented as of this encounter (statuses as of 09/07/2022) Medications Medication Sig Dispensed Refills Start Date [...] Tablet by mouth every evening. 0 Active [place]-3 Fatty Acids (ULTRA OMEGA 3) 952 MG CAPSIndications:Dy slipidemia, goal LDL below 100 One tab twice daily 180 Cap 1 04/19/2018 Active Coenzyme Q10 300 MG Oral Wafer Take 600 mg by mouth once. 0 Active DHEA 50 MG Oral Tablet Take 50 mg by mouth daily. 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 Overview: Hastings's esophagus: egd by Dr Grant () f/u EGD 2001- neg per pt Cyst of kidney, acquired Overview: followed at [place] documented as of this encounter (statuses as of 09/07/2022) Resolved Problems Problem Noted Date Resolved Date [...] 3.4 by CTA 08/09/2012 [employer] Other*[id number] 201005/24/2016 Shortness of breath 02/22/2011 12/08/2016 Aortocoronary [...] as of this encounter (statuses as of 09/07/2022) Immunizations Name Administration Dates Next Due COVID-19 mRNA, LNP-s, No Pre serve, 2-Dose Series (Moderna) 06/10/2020,05/13/2020 COVID-19, LNP-s, No Preserve , Adiel-sucrose, Ages 12+ (Pfizer) 12/06/2021 Covid-19 Mrna, Lnp-s, No Pre serve, Booster (Moderna) 02/24/2021 Covid-19, Mrna, Lnp-s, Pf, B ivalent Booster, 30 Mcg, IM, 12 yrs and above ([employer]) 04/19/2022 HEP A - Hepatitis A (Adult [...] Telephone Encounter - Argenis Aparicio RN - 09/07/2022 4:13 PM EDT Pt notified of message below-verbalized understanding. No further questions at this time. * Telephone Encounter - Argenis Aparicio RN - 09/07/2022 3:52 PM EDT Call to pt-no answer-message left to call back at [phone] * Telephone Encounter - Argenis Aparicio RN - 09/07/2022 3:51 PM EDT ----- Message from Yanick Canseco DO sent at 09/07/2022 8:05 AM EDT ----- Urine microalbumin has improved but is still high Continue current medications. documented in this encounter Plan of Treatment Upcoming Encounters Date Type Specialty Care Team Description 09/26/2022 Office Visit Orthopedics Justin Lombardi MD [address] [place] [address] 09/27/2022 Office Visit Dermatology Laure Arias PA-C [address] [place] [address] [place] [address] 11/04/2022 Office Visit Nephrology Ryan Issa MD [address] [facility] [address] 11/21/2022 Cardiac Studies Cardiac Studies 11/28/2022 Office Visit Gastroenterology Patricia Mejia CRNP [address] [place] [address] 01/06/2023 Office Visit Family Medicine Yanick Canseco DO [address] [place] [address] 02/23/2023 Office Visit Dermatology Laure Arias PA-C [address] [place] [address] [place] [address] 02/27/2023 Office Visit Cardiology Bessy Gill PA-C [address] [place] [address] 03/15/2023 Office Visit Nephrology Ryan Issa MD [address] [place] [address] Health Maintenance Due Date Last Done Comments AAA ULTRASOUND YEARLY 09/08/2022 09/08/2021 , 08/23/2021, 08/25/2020, Additional history exists CKD PHOS USE SMARTSET 35875 10/11/202209/16, 03/18/2021, 03/02/2021, Additional history exists GFR 12/11/2022 06/13/2022, 05/19, 05/27/2022, Additional history exists CKD HGB USE SMARTSET 64202 06/13/202306/13, 06/13/2022, 06/06/2022, Additional history exists Depression [...] filedocumented as of this encounter Care Teams Prepress Specialist Relationship Specialty Start Date End Date Yanick Canseco, [address] [place] [address] PCP - General Internal Medicine 04/07/22 documented as of this encounter
--- OUTSIDE RECORDS SUMMARY | 2023-03-04 16:36 | External Medical Summary | Summary of Care ---
Author Name Unknown Organization [facility] Address [address] [facility] [place] [address] Phone [phone] Care Team Providers Care Cooler Servicer Name Role Phone Yanick Canseco DO Primary Care Provider [phone] Reason for Visit * Reason Onset Date Comments Pre-op Clearance 09/02/2022 Encounter Details Date Type Department Care Team Description 09/02/2022 Telephone Cardiology, [facility] [address] [place] [address] Erwin Weiner MD [address] [place] [address] Pre-op Clearance Allergies Active Allergy Reactions Severity Noted Date Comments Cat Dander 09/25/2014 Dog Dander 09/25/2014 Dust 09/23/2015 Pollen 09/25/2014 Losartan Other (Please comment) 03/02/2021 Hyperkalemia Morphine Nausea/vomiting Low 12/13/2017 Ragweed 09/25/2014 documented as of this encounter (statuses as of 09/13/2022) Medications Medication Sig Dispensed Refills Start Date [...] Tablet by mouth every evening. 0 Active [place]-3 Fatty Acids (ULTRA OMEGA 3) 952 MG CAPSIndications:D yslipidemia, goal LDL below 100 One tab twice daily 180 Cap 1 04/19/2018 Active Coenzyme Q10 300 MG Oral Wafer Take 600 mg by mouth once. 0 Active DHEA 50 MG Oral Tablet Take 50 mg by mouth daily. 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 Surgeon will not accept risk assessment from midlevel and is requesting statement from physician aswell signature. * Telephone Encounter - Manju Gotti LPN - 09/05/2022 1:05 PM EDT Faxed to [facility] per request. * Telephone Encounter - Bessy [...] 09/02/2022 2:08 PM EDT Fax received from [facility] General Surgery/Urology. Patient is scheduled for [...] Lombardi MD [address] [place] [address] 09/27/2022 Office Visit Dermatology Laure Arias PA-C [address] [place] [address] [place] [address] 11/04/2022 Office Visit Nephrology Ryan Issa MD [address] [facility] [place] [address] 11/21/2022 Cardiac Studies Cardiac Studies 11/28/2022 Office Visit Gastroenterology Patricia Mejia CRNP [address] [place] [address] 01/06/2023 Office Visit Family Medicine Yanick Canseco, [address] [facility] [place] [address] 02/23/2023 Office Visit Dermatology Laure Arias, PAKateC [address] [place] [address] [place] [address] 02/27/2023 Office Visit Cardiology Bessy Gill PA-C [address] [place] [address] 03/15/2023 Office Visit Nephrology Ryan Issa MD [address] [facility] [place] [address] Health Maintenance Due Date Last Done Comments AAA ULTRASOUND YEARLY 09/08/2022 09/08/2021 , 08/23/2021, 08/25/2020, Additional history exists CKD PHOS USE SMARTSET 28670 10/11/202209/16, 03/18/2021, 03/02/2021, Additional history exists GFR 12/11/2022 06/13/2022, 05/19, 05/27/2022, Additional history exists CKD HGB USE SMARTSET 77271 06/13/202306/13, 06/13/2022, 06/06/2022, Additional history exists Depression [...] filedocumented as of this encounter Care Teams Cooler Servicer Relationship Specialty Start Date End Date Yanick Canseco, [address] [facility] [place] [address] PCP - General Internal Medicine 04/07/22 documented as of this encounter
--- OUTSIDE RECORDS SUMMARY | 2023-03-04 16:36 | External Medical Summary | Summary of Care ---
Author Name Unknown Organization [facility] Address [address] [place] [address] Phone [phone] Care Team Providers Care Pump Runner Name Role Phone Yanick Canseco DO Primary Care Provider [phone] Reason for Visit * Reason Onset Date Comments Test Results 09/06/2022 Encounter Details Date Type Department Care Team Description 09/06/2022 Telephone Family Practice [facility] [address] [place] [phone] Yanick Canseco DO [address] [place], [place] [id number] Test Results Allergies Active Allergy Reactions Severity [...] Tablet by mouth every evening. 0 Active [place]-3 Fatty Acids (ULTRA OMEGA 3) 952 MG CAPSIndications:Dy slipidemia, goal LDL below 100 One tab twice daily 180 Cap 1 04/19/2018 Active Coenzyme Q10 300 MG Oral Wafer Take 600 mg by mouth once. 0 Active DHEA 50 MG Oral Tablet Take 50 mg by mouth daily. 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 Pt verbalized understanding. States there were a couple medication refills he needed but he was not at home- states he will call back with the refills he needs once he gets home. * Telephone Encounter - Argenis Aparicio RN - 09/06/2022 3:27 PM EDT ----- Message from Yanick Canseco DO sent at 09/06/2022 7:51 AM EDT ----- Prediabetes is stable. All other labs are good. documented in this encounter Plan of Treatment Upcoming Encounters Date Type Specialty Care Team Description 09/26/2022 Office Visit Orthopedics Justin Lombardi MD [address] [place] [address] 09/27/2022 Office Visit Dermatology Laure Arias PA-C [address] [place] [address] [place] [address] 11/04/2022 Office Visit Nephrology Ryan Issa MD [address] [facility] [address] [place] [address] 11/21/2022 Cardiac Studies Cardiac Studies 11/28/2022 Office Visit Gastroenterology Patricia Mejia CRNP [address] [place] [address] 01/06/2023 Office Visit Family Medicine Yanick Canseco DO [address] [facility] [place] [address] 02/23/2023 Office Visit Dermatology Laure Arias PAKateC [address] [place] [address] [place] [address] 02/27/2023 Office Visit Cardiology Bessy Gill PA-C [address] [place] [address] 03/15/2023 Office Visit Nephrology Ryan Issa MD [address] [place] [place] [address] Health Maintenance Due Date Last Done Comments AAA ULTRASOUND YEARLY 09/08/2022 09/08/2021 , 08/23/2021, 08/25/2020, Additional history exists Albumin/Creatinine Ratio 09/21/2022 022, 09/10/2013, 03/25/2011 CKD PHOS USE SMARTSET 76422 10/11/202209/16, 03/18/2021, 03/02/2021, Additional history exists GFR 12/11/2022 06/13/2022, 05/19, 05/27/2022, Additional history exists CKD HGB USE SMARTSET 07916 06/13/202306/13, 06/13/2022, 06/06/2022, Additional history exists Depression [...] filedocumented as of this encounter Care Teams Pump Runner Relationship Specialty Start Date End Date Yanick Canseco, [address] [facility] [place] [address] PCP - General Internal Medicine 04/07/22 documented as of this encounter
--- OUTSIDE RECORDS SUMMARY | 2023-03-04 16:36 | External Medical Summary | Summary of Care ---
Author Name Unknown Organization [facility] Address [address] [place] [address] Phone [phone] Care Team Providers Care Pss Delivery Professional Name Role Phone Génesis Canseco DO Primary Care Provider [phone] Reason for Visit * Reason Onset Date Comments Medication Refill 09/07/2022 Encounter Details Date Type Department Care Team Description 09/07/2022 Refill Family Practice 65 [facility] [address] [place] [address] Génesis Canseco DO [address] [place] [address] Atrial fibrillation with RVR ([facility]) Allergies Active Allergy Reactions Severity Noted Date Comments Cat Dander 09/25/2014 Dog Dander 09/25/2014 Dust 09/23/2015 Pollen 09/25/2014 Losartan Other (Please comment) 03/02/2021 Hyperkalemia Morphine Nausea/vomiting Low 12/13/2017 Ragweed 09/25/2014 documented as of this encounter (statuses as of 09/08/2022) Medications Medication Sig Dispensed Refills Start Date [...] Tablet by mouth every evening. 0 Active [place]-3 Fatty Acids (ULTRA OMEGA 3) 952 MG CAPSIndications:D yslipidemia, goal LDL below 100 One tab twice daily 180 Cap 1 04/19/2018 Active Coenzyme Q10 300 MG Oral Wafer Take 600 mg by mouth once. 0 Active DHEA 50 MG Oral Tablet Take 50 mg by mouth daily. 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 Overview: Hastings's esophagus: egd by Dr Grant () f/u EGD 2001- per pt Cyst of kidney, acquired Overview: followed at [place] documented as of this encounter (statuses as of 09/08/2022) Resolved Problems Problem Noted Date Resolved Date [...] 3.4 by CTA 08/09/2012 [employer] Other*[id number] 201005/24/2016 Shortness of breath 02/22/2011 12/08/2016 Aortocoronary [...] as of this encounter (statuses as of 09/08/2022) Immunizations Name Administration Dates Next Due COVID-19 mRNA, LNP-s, No Pre serve, 2-Dose Series (Moderna) 06/10/2020,05/13/2020 COVID-19, LNP-s, No Preserve , Adiel-sucrose, Ages 12+ (Pfizer) 12/06/2021 Covid-19 Mrna, Lnp-s, No Pre serve, Booster (Moderna) 02/24/2021 Covid-19, Mrna, Lnp-s, Pf, B ivalent Booster, 30 Mcg, IM, 12 yrs and above ([employer]) 04/19/2022 HEP A - Hepatitis A (Adult [...] encounter Miscellaneous Notes * Telephone Encounter - Gisselle Best [facility] - 09/08/2022 5:42 AM EDTSigned Prescriptions: Disp Refills Carvedilol 12.5 MG Oral Tablet (Coreg) 90 Tab*5 Sig: Take 25 mg in the morning and 12.5 mg in the evening Authorizing Provider: GÉNESIS CANSECO Ordering User: GISSELLE BEST * Telephone Encounter - Cindy Navarrete philatelic consultant - 09/07/2022 9:49 AM EDT Did you pend patient's preferred pharmacy and medication before forwarding?yes Pharmacy: [facility]- [place] Pending Prescriptions: Disp Refills Carvedilol [...] Orthopedics Justin Lombardi MD [address] [place] [address] 09/27/2022 Office Visit Dermatology Laure Arias PA-C [address] [place] [address] [place] [address] 11/04/2022 Office Visit Nephrology Ryan Issa MD [address] [place] [address] 11/21/2022 Cardiac Studies Cardiac Studies 11/28/2022 Office Visit Gastroenterology Patricia Mejia CRNP [address] [place] [address] 01/06/2023 Office Visit Family Medicine Génesis Canseco DO [address] [place] [address] 02/23/2023 Office Visit Dermatology Laure Arias PA-C [address] [place] [address] [place] [address] 02/27/2023 Office Visit Cardiology Bessy Gill PA-C [address] [place] [address] 03/15/2023 Office Visit Nephrology Ryan Issa MD [address] [place] [address] Health Maintenance Due Date Last Done Comments AAA ULTRASOUND YEARLY 09/08/2022 09/08/2021 , 08/23/2021, 08/25/2020, Additional history exists CKD PHOS USE SMARTSET 59968 10/11/202209/16, 03/18/2021, 03/02/2021, Additional history exists GFR 12/11/2022 06/13/2022, 05/19, 05/27/2022, Additional history exists CKD HGB USE SMARTSET 82943 06/13/202306/13, 06/13/2022, 06/06/2022, Additional history exists Depression [...] fibrillation documented in this encounter Care Teams Pss Delivery Professional Relationship Specialty Start Date End Date Génesis Canseco, [address] [place] [address] PCP - General Internal Medicine 04/07/22 documented as of this encounter
--- OUTSIDE RECORDS SUMMARY | 2023-03-04 16:36 | External Medical Summary ---
Author Name Unknown Address Unknown Organization K01:LABORATORY [facility] - [address] [facility] [address] Laboratory Report Ordering Provider Test Date Status CULLEN CAPPS 09/05/2022 10:57:35 Final Observation Date Value Abnormality Reference (Units ) Status TSH 09/05/2022 10:57:35 2.66 0.27-4.20 (uIU/mL) Final Performing Location LABORATORY [facility] - [address] [facility] [address]
--- OUTSIDE RECORDS SUMMARY | 2023-03-04 16:36 | External Medical Summary ---
Author Name Unknown Address Unknown Organization K01:LABORATORY [facility] - [address] [place] [address] Laboratory Report Ordering Provider Test Date Status CULLEN CAPPS 09/05/2022 10:57:35 Final Observation Date Value Abnormality Reference (Units ) Status Uric Acid 09/05/2022 10:57:35 4.7 3.4-7.0 (m g/dL) Final Performing Location LABORATORY [facility] - [address] [place] [address]
--- OUTSIDE RECORDS SUMMARY | 2023-03-04 16:36 | External Medical Summary | Summary of Care ---
Author Name Unknown Organization [facility] Address [address] [place] [address] Phone [phone] Care Team Providers Care Rotary Shear Cutter Name Role Phone Yanick Canseco DO Primary Care Provider Reason for Visit * Reason Comments Follow Up Encounter Details Date Type Department Care Team Description 09/05/2022 Office Visit Family Practice [facility] [address] [place] [address] Yanick Canseco DO [address] [place] [address] Hypertensive kidney disease with stage 3b chronic kidney disease (HCC)*; Paroxysmal atrial fibrillation (HCC); Atherosclerosis of nez perce coronary artery of nez perce heart without angina pectoris; BPH without obstruction/lower urinary tract symptoms; Neurogenic bladder; Prediabetes; Hypothyroidism due to acquired atrophy of thyroid; Moderate to severe aortic insufficiency; Infrarenal abdominal 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 (HCC); Dyslipidemia, goal LDL below 70; Disc disorder of lumbar region; History of coronary artery bypass graft; Colbert's esophagus with high grade dysplasia; Gouty arthropathy Allergies Active Allergy Reactions Severity [...] Tablet by mouth every evening. 0 Active Newport-3 Fatty Acids (ULTRA OMEGA 3) 952 MG CAPSIndications:Dy slipidemia, goal LDL below 100 One tab twice daily 180 Cap 1 04/19/2018 Active Coenzyme Q10 300 MG Oral Wafer Take 600 mg by mouth once. 0 Active DHEA 50 MG Oral Tablet Take 50 mg by mouth daily. 0 Active Nitroglycerin 0.4 MG Sublingual Tablet Sublingual (Nitrostat)Indicat ions:Atheroscleros is of nez perce coronary artery of nez perce heart without angina pectoris Place under the [...] artery bypass graft 10/15/2007 Coronary atherosclerosis of nez perce coron martha artery 10/15/2007 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 09/08/2005 Other allergic rhinitis 02/28/2001 Overview: ICD-10 update of inactive term Colbert's esophagus with high grade dysp lasia Overview: Colbert's esophagus: egd by Dr Grant () f/u EGD 2001- per pt Cyst of kidney, acquired Overview: followed at [place] documented as of this encounter (statuses as [...] 3.4 by CTA 08/09/2012 [facility] Other*[id number] 201005/24/2016 Shortness of breath 02/22/2011 12/08/2016 Aortocoronary [...] Sign Reading Time Taken Comments Blood Pressure 134/68 09/05/2022 9:53 AM EDT Pulse 76 09/05/2022 9:53 AM EDT Temperature 35.8 C (96.5 F) 09/05/2022 9:53 AM ED T Respiratory Rate 14 09/05/2022 9:53 AM EDT Oxygen Saturation 98% 09/05/2022 9:53 AM EDT Inhaled Oxygen Concentration - - Weight 87.5 kg (193 lb) 09/05/2022 9:53 AM EDT Height 181 cm (5' 11.25") 09/05/2022 9:53 AM EDT Body Mass Index 26.73 09/05/2022 9:53 AM EDT documented in this encounter Progress Notes * Yanick Canseco, - 09/05/2022 12:41 PM EDT SUBJECTIVE: Hubert Persaud is a 82 year old male. Chief Complaint Patient presents with Follow Up HPI: Patient is an 82 year old male with a history of Atrial Fibrillation, CABG, severe Aortic Valve Insufficiency, Sleep Apnea, Hypothyroidism, left calcified renal cyst, esophagectomy to treat Colbert'swith high grade dysplasia, bilateral 50-69 % ICA stenosis, AAA, Lumbar Disc Diease, Gout, Insomnia,BPH, chronic urinary retention, and osteomyelitis of the spine that is seen for follow up. He is scheduled for evaluation of AI at [facility] next week. No chest pain or shortness of breath arepresent. Weight is stable and appetite is good. Patient Active Problem List Diagnosis Code Other allergic rhinitis J30.89 Colbert's esophagus with high grade dysplasia K22.711 Cyst of kidney, acquired N28.1 BPH without obstruction/lower urinary tract symptoms N40.0 History of coronary artery bypass graft Z95.1 Coronary atherosclerosis of nez perce coronary artery I25.10 Gouty arthropathy M10.9 Disc [...] aneurysm (AAA) without rupture ([facility]) I71.43 Current Outpatient Medications Medication Sig [...] Take 1 Tablet by mouth every evening. Newport-3 Fatty Acids (ULTRA OMEGA 3) 952 MG [...] meal of the day. 100 Capsule 3 Carvedilol 12.5 MG Oral Tablet (Coreg) Take 25 mg in the morning and 12.5 mg in the evening 90 Tablet 1 Levothyroxine Sodium 150 MCG Oral Tablet (Levoxyl) [...] morning. Mixed with liquid.. 90 Packet 3 No current facility-administered medications for this visit. The patient's medication list was reviewed and updated as needed. Past Medical History: Diagnosis Date Abdominal aortic aneurysm (HCC) 02/20/2009 Aortocoronary bypass status 10/15/2007 Atrial fibrillation (HCC) 02/16/2010 Chronic coronary artery disease 09/22 CABGx4 GIFFORD to LAD, SVG to ramus, SVG to OM, SVG to RCA DISC DIS [id number] 02/20/2009 Dyslipidemia, goal LDL below 100 03/30/2009 Per Lipid Taxonomy. Gouty arthropathy History of esophageal cancer Colbert's esophagus: egd by Dr Grant () f/u EGD 2001- neg per pt HTN, goal to be determined HYPERTROP PROSTATE W/O URIN OB 09/08/2005 Hypothyroidism Kidney disease, chronic, stage III (GFR 30-59 ml/min) ([facility]) 09/10/2013 MAL TIKI ESOPHAGUS NOS Colbert's esophagus: egd by Dr Grant () f/u EGD 2001- neg per pt Moderate to severe aortic insufficiency 03/02/2021 Neurogenic bladder 14 Fr straight tip self cath 6-7 times per day Past Surgical History: Procedure Laterality Date BYPASS GRAFT ANGIOGRAPHY W/LEFT HEART CATH 03/08/2011 BYPASS GRAFT ANGIOGRAPHY W/LEFT HEART CATH performed by RACHEL JACOB at [facility] CABG, ARTERIAL, FOUR OR MORE 09/21/2007 four vessel CAGB CARPAL TUNNEL SURGERY Right 03/2017 COLONOSCOPY 04/2006 CYSTOSCOPY 10/09/2017 done [address] office [address] Dr Chavez EGD, FLEXIBLE, DIAGNOSTIC 03/22/2012 UPPER GI ENDOSCOPY DIAGNOSTIC performed by Odalys Cárdenas MD at ENDOSCOPY [facility] EGD, FLEXIBLE, DIAGNOSTIC 03/23/2012 UPPER GI ENDOSCOPY DIAGNOSTIC performed by Odalys Cárdenas MD at ENDOSCOPY [facility] BX negative for Colbert's- repeat in 2 years EGD, FLEXIBLE, DIAGNOSTIC N/A 04/29/2014 Unremarkable post esophagectomy anatomy, without evidence of colbert's. repeat in 3 yrs/ESOPHAGOGASTRODUODENOSCOPY (EGD), FLEXIBLE, TRANSORAL, DIAGNOSTIC performed by Odalys Cárdenas MD at END[facility]COPY [facility] EGD, FLEXIBLE, DIAGNOSTIC N/A 03/17/2016 normal bx/ESOPHAGOGASTRODUODENOSCOPY (EGD), FLEXIBLE, TRANSORAL, DIAGNOSTIC performed by Babatunde Carr MD at [facility]COPY [facility] EGD, FLEXIBLE, DIAGNOSTIC N/A 11/19/2019 small amount of retained bilious fluid of stomach, moderate edema and erythema of mucosa in stomach/retained food in stomach/biopsies normal/EGD/[facility] EGD, FLEXIBLE, W/BIOPSY 08/21/2007 No sx of Colbert's EGD, FLEXIBLE, W/BIOPSY 12/01/2009 done anastamosis and GE junction @ 20cm bx done--no eidence of Barretts IMPLANT MESH W/ ABD HERNIA REPR/DEBRIDE 12/2006 INFORMATION 2001 Other Ventral hernia repair R lower abdomen NONE 2002 colonoscopy at [facility]. OTHER 10/27/2005 excision of skin lesion from [...] for dysuria and hematuria. Patient straight caths six times a day Neurological: Negative for dizziness, syncope and headaches. Psychiatric/Behavioral: Negative for confusion, decreased concentration and sleep disturbance. OBJECTIVE: BP 134/68 | Pulse 76 | Temp 35.8 C (96.5 F) (Tympanic) | Resp 14 | Ht 1.81 m (5' 11.25") | Wt 87.5 kg (193 lb) | SpO2 98% | BMI 26.73 kg/m | BSA 2.1 m Physical Exam Vitals and nursing note reviewed. Constitutional: General: He is not in acute distress. Appearance: Normal appearance. He is not toxic-appearing. HENT: Head: Normocephalic and atraumatic. Cardiovascular: Rate and Rhythm: Normal rate. Rhythm irregular. Heart sounds: Murmur heard. No gallop. Pulmonary: Effort: Pulmonary effort [...] Content: Thought content normal. PLAN AND ASSESSMENT: Hypertensive kidney disease with stage 3b chronic kidney disease (HCC) (Primary) - ALBUMIN / CREATININE RATIO, URINE; Future; Expected date: 09/05/2022 Continue Amlodipine Paroxysmal atrial fibrillation (HCC) Continue Apixaban, and Carvedilol Atherosclerosis of nez perce coronary artery of nez perce heart without angina pectoris Continue ASA, and Carvedilol BPH without obstruction/lower urinary tract symptoms Neurogenic bladder Continue to straight cath six times a day Prediabetes - HEMOGLOBIN A1C; Future; Expected date: 09/05/2022 - HEMOGLOBIN A1C Hypothyroidism due to acquired atrophy of thyroid - TSH WITH FREE T4 IF INDICATED; Future; Expected date: 09/05/2022 - TSH WITH FREE T4 IF INDICATED Continue Levothyroxine Moderate to severe aortic insufficiency Continue to follow with Cardiology Infrarenal abdominal 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 (HCC) Repeat US Abdominal Aorta per Cardiology Dyslipidemia, goal LDL below 70 - LIPID PANEL WITH DIRECT LDL IF TG IS HIGH; Future; Expected date: 09/05/2022 - HEPATIC FUNCTION PANEL; Future; Expected date: 09/05/2022 - LIPID PANEL WITH DIRECT LDL IF TG IS HIGH - HEPATIC FUNCTION PANEL Continue Atorvastatin 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 Yanick Canseco DO 12:41 PM 09/05/2022 documented in this encounter Nursing Notes * Argenis Sauer LPN - 09/05/2022 9:53 AM EDT Patient presents for follow up, voices no complaints. documented in this encounter Plan of Treatment Upcoming Encounters Date Type Specialty Care Team Description 09/26/2022 Office Visit Orthopedics Justin Lombardi MD [address] [place] [address] 09/27/2022 Office Visit Dermatology Laure Arias PA-C [address] [place] [address] [place] [address] 11/04/2022 Office Visit Nephrology Mainali, Ryan, MD [address] [facility] [place] [address] 11/21/2022 Cardiac Studies Cardiac Studies 11/28/2022 Office Visit Gastroenterology Patricia Mejia CRNP [address] [facility] [place] [address] 01/06/2023 Office Visit Family Medicine Yanick Canseco, [address] [place] [address] 02/23/2023 Office Visit Dermatology Laure Arias PA-C [address] [place] [address] [place] [address] 02/27/2023 Office Visit Cardiology Bessy Gill PA-C [address] [facility] [place] [address] 03/15/2023 Office Visit Nephrology Ryan Issa MD [address] [facility] [place] [address] Pending Results Name Type Priority Associated Diagnoses Date /Time HEMOGLOBIN A1C Lab Routine Prediabetes 09/05/2022 10:57 AM EDT LIPID PANEL WITH DIRECT LDL IF TG IS HIGH Lab Routine Dyslipidemia, goal LDL below 70 09/05/2022 10:57 AM EDT URIC ACID Lab Routine Gouty arthropathy 09/05/2022 10:57 AM EDT TSH WITH FREE T4 IF INDICATED Lab Routine Hypothyroidism due to acquired atrophy of thyroid 09/05/2022 10:57 AM EDT HEPATIC FUNCTION PANEL Lab Routine Dyslipidemia, goal LDL below 70 09/05/2022 10:57 AM EDT Scheduled Orders Name Type Priority Associated Diagnoses Orde r Schedule ALBUMIN / CREATININE RATIO, URINE Lab Routine Hypertensive kidney disease with stage 3b chronic kidney disease (HCC) Expected: 09/05/2022 (Approximate), Expires: 09/06/2023 HEMOGLOBIN A1C Lab Routine Prediabetes Expected: 09/05/2022 (Approximate), Expires: 09/05/2023 LIPID PANEL WITH DIRECT LDL IF TG IS HIGH Lab Routine Dyslipidemia, goal LDL below 70 Expected: 09/05/2022, Expires: 09/06/2023 URIC ACID Lab Routine Gouty arthropathy Expected: 09/05/2022 (Approximate), Expires: 09/05/2023 TSH WITH FREE T4 IF INDICATED Lab Routine Hypothyroidism due to acquired atrophy of thyroid Expected: 09/05/2022 (Approximate), Expires: 09/05/2023 HEPATIC FUNCTION PANEL Lab Routine Dyslipidemia, goal LDL below 70 Expected: 09/05/2022 (Approximate), Expires: 09/05/2023 Health Maintenance Due Date Last Done Comments AAA ULTRASOUND YEARLY 09/08/2022 09/08/2021 , 08/23/2021, 08/25/2020, Additional history exists Albumin/Creatinine Ratio 09/21/2022 022, 09/10/2013, 03/25/2011 CKD PHOS USE SMARTSET 63333 10/11/202209/16, 03/18/2021, 03/02/2021, Additional history exists GFR - Renal Function 12/11/2022 06/13/2022, 06/06/2022, 05/27/2022, Additional history exists HgA1C 03/09/2023 03/09/2022, 02/15, 09/15/2020, Additional history exists TSH FOR THYROID MEDICATION MONITORING YEARLY 05/27/2023 05/27/2022, 09/20/2021, 03/29/2021, Additional history exists CKD HGB USE SMARTSET 05785 06/13/202306/13, 06/13/2022, 06/06/2022, Additional history exists Depression [...] disease with stage 3b chronic kidney disease (HCC)- Primary Paroxysmal atrial fibrillation (HCC) Atrial fibrillation Atherosclerosis of nez perce coronary artery of nez perce heart without angina pectoris BPH without obstruction/lower urinary tract symptoms Hypertrophy of prostate without urinary obstruction and other lower urinary tract symptoms (LUTS) Neurogenic bladder Neurogenic bladder, NOS Prediabetes Other abnormal glucose Hypothyroidism due to acquired atrophy of thyroid Moderate to severe aortic insufficiency Infrarenal abdominal 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 (HCC) Dyslipidemia, goal LDL below 70 Other and unspecified hyperlipidemia Disc disorder of lumbar region Other and unspecified disc disorder of lumbar region 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 Colbert's esophagus with high grade dysplasia Colbert's esophagus Gouty arthropathy Gouty arthropathy, unspecified documented in this encounter Care Teams Rotary Shear Cutter Relationship Specialty Start Date End Date Yanick Canseco, [address] [place] [address] PCP - General Internal Medicine 04/07/22 documented as of this encounter
--- OUTSIDE RECORDS SUMMARY | 2023-03-04 16:36 | External Medical Summary ---
Author Name Unknown Address Unknown Organization [id number]:[facility] [place] [id number] Laboratory Report Ordering Provider Test Date Status CULLEN CAPPS 09/05/2022 10:57:35 Final Observation Date Value Abnormality Reference (Units ) Status HbA1C 09/05/2022 10:57:35 6.1 Above high normal 4. 0-5.6 (%) Final The use of HbA1c to monitor glycemic status is based on normal hemoglobin and HbA composition. This test should not be used in patients with abnormal hemoglobin that affects the half life of the red blood cell or the in vivo glycation rates. Glucose, estimated average 09/05/2022 10:57:35 128 Above high normal <126 (mg/dL) Raphael ghosh Performing Location [facility] [address] [facility] [address]
--- OUTSIDE RECORDS SUMMARY | 2023-03-04 17:53 | External Medical Summary | Summary of Care ---
Author Name Unknown Organization [facility] Address [address] [place] [address] Phone [phone] Care Team Providers Care International Representative Name Role Phone Yanick Canseco DO Primary Care Provider [phone] Reason for Visit * Reason Comments Acute Encounter Details Date Type Department Care Team (Late st Contact Info) Description 03/02/2023 2:30 PM EST Office Visit Family Practice 65 [facility] [address] [place] [address] Yanick Canseco [address] [place] [address] Postural dizziness with presyncope*; Orthostatic hypotension; Volume depletion; Rigors; Fatigue, unspecified type; S/P aortic valve replacement; Atherosclerosis of [place] coronary artery of [place] heart without angina pectoris; Paroxysmal atrial fibrillation (HCC); Aortic root enlargement (HCC); Gouty arthropathy; Disc disorder of lumbar region; HTN, GOAL BELOW 140/90; Dyslipidemia, goal LDL below 70; Neurogenic bladder; Prediabetes; Hypothyroidism due to acquired atrophy of thyroid; Hypertensive kidney disease with stage 3b chronic kidney disease (HCC); Infrarenal abdominal 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 (HCC); S/P AVR (aortic valve replacement); Colbert's esophagus with high grade dysplasia; History of coronary artery bypass graft Allergies Active Allergy Reactions Criticality Noted Date [...] Tablet by mouth every evening. 0 Active [place]-3 Fatty Acids (ULTRA OMEGA 3) 952 MG [...] Sublingual Tablet Sublingual (Nitrostat)Indica tions:Atheroscler osis of ango[place] coronary artery of angoon heart without angina pectoris Place under the [...] TABLET BEFORE BEDTIME 200 Tablet 3 10/10/2022 Active Nitrofurantoin Macrocrystal 50 MG Oral Capsule [...] mouth in the morning. 0 02/14/2023 3 Discontinu ed(Medicat ion/Dose Changed) documented as of this encounter (statuses [...] bypass graft 10/15/19 08 Coronary atherosclerosis of [place] coronary celina ry 10/15/2007 BPH without obstruction/lower urinary tract symp toms 09/08/2005 Other allergic rhinitis 02/28/2001 Overview: ICD-10 update of inactive term Colbert's esophagus with high grade dysplasia Overview: Colbert's esophagus: egd by Dr Grant () f/u EGD 2002- neg per pt Cyst of kidney, acquired Overview: followed at [place] documented as of this encounter (statuses as [...] 3.4 by CTA 08/09/2012 [employer] [facility] Other*[id number] 03/08/2011 05/24/2016 Shortness of breath 02/22/2011 12/09/19 [...] Sign Reading Time Taken Comments Blood Pressure 104/66 03/02/2023 2:58 PM EST Pulse 64 03/02/2023 2:58 PM EST Temperature 37.4 C (99.4 F) 03/02/2023 2:58 PM ES T Respiratory Rate 16 03/02/2023 2:58 PM EST Oxygen Saturation 94% 03/02/2023 2:58 PM EST Inhaled Oxygen Concentration - - Weight 82.9 kg (182 lb 11.2 oz) 03/02/2023 2:58 PM EST Height 181 cm (5' 11.25") 03/02/2023 2:58 PM EST Body Mass Index 25.3 03/02/2023 2:58 PM EST documented in this encounter Progress Notes * Yanick Canseco, DO - 03/02/2023 3:27 PM EST SUBJECTIVE: Hubert Persaud is a 83 year old male. Chief Complaint Patient presents with Acute HPI: Patient is an 83 year old male with a history of Atrial Fibrillation, CABG, Sleep Apnea, Hypothyroidism, left renal cyst, esophagectomy to treat Barett's Esophagus with high grade dysplasia, bilateral ICA stenosis, AAA, lumbar disc disease, Gout, Insomnia, BPH, Osteomyelitis of the Lumbar spine, and sacral neurotransmitted implant to treat Neurogenic Bladder that is seen for hospital follow up. Patient was admitted to [facility] and had AVR, bilatral MAZE, and ISAÍAS ligation to treat severeAortic Valve Insufficiency on 02/07/2023. Patient has loss of appetite. Poor oral intake for 2 daysand rigors for the last two days. No chest pain or shortness of breath are present.He was unable to transfer from the car to the building and required wheelchair. He had no difficulty with ambulationon post hospital visit. Patient has left lung nodule found incidentally on CT chest. Follow up CT chest recommended in 6 months. Patient Active Problem List Diagnosis Code Other allergic rhinitis J30.89 Colbert's esophagus with high grade dysplasia K22.711 Cyst of kidney, acquired N28.1 BPH without obstruction/lower urinary tract symptoms N40.0 History of coronary artery bypass graft Z95.1 Coronary atherosclerosis of [place] coronary artery I25.10 Gouty arthropathy M10.9 Disc [...] 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 ([facility]) I71.43 Aortic root enlargement ([facility]) I77.89 S/P AVR (aortic valve replacement) Z95.2 Pulmonary nodule, left R91.1 Current Outpatient [...] Take 1 Tablet by mouth every evening. [place]-3 Fatty Acids (ULTRA OMEGA 3) 952 MG [...] to OM, SVG to RCA DISC DIS [id number] 02/20/2009 Dyslipidemia, goal LDL below 100 03/30/2009 Per Lipid Taxonomy. Gouty arthropathy History of esophageal cancer Colbert's esophagus: egd by Dr Grant () f/u EGD 2001- neg per pt HTN, goal to be determined HYPERTROP PROSTATE W/O URIN OB 09/08/2005 Hypothyroidism Kidney disease, chronic, stage III (GFR 30-59 ml/min) ([facility]) 09/10/2013 MAL TIKI ESOPHAGUS NOS Colbert's [...] by RACHEL JACOB at [facility] CABG, ARTERIAL, FOUR OR MORE 09/21/2007 four vessel CAGB CARPAL TUNNEL SURGERY Right 03/2017 COLONOSCOPY 04/2006 CYSTOSCOPY 10/09/2017 done [address] office [address] Chavez EGD, FLEXIBLE, DIAGNOSTIC 03/22/2012 UPPER GI ENDOSCOPY DIAGNOSTIC performed by Odalys Cárdenas MD at ENDOSCOPY [facility] EGD, FLEXIBLE, DIAGNOSTIC 03/23/2012 UPPER GI ENDOSCOPY DIAGNOSTIC performed by Odalys Cárdenas MD at ENDOSCOPY [facility] BX negative for Colbert's- repeat in 2 years EGD, FLEXIBLE, DIAGNOSTIC N/A 04/29/2014 Unremarkable post esophagectomy anatomy, without evidence of colbert's. repeat in 3 yrs/ESOPHAGOGASTRODUODENOSCOPY (EGD), FLEXIBLE, TRANSORAL, DIAGNOSTIC performed by Odalys Cárdenas MD at ENDOSCOPY [facility] EGD, FLEXIBLE, DIAGNOSTIC N/A 03/17/2016 normal bx/ESOPHAGOGASTRODUODENOSCOPY (EGD), FLEXIBLE, TRANSORAL, DIAGNOSTIC performed by Babatunde Carr MD at ENDOSCOPY [facility] EGD, FLEXIBLE, DIAGNOSTIC N/A 11/19/2019 small [...] R lower abdomen NONE 2002 colonoscopy at [facility]. OTHER 10/27/2005 excision of skin lesion [...] of Systems Constitutional: Positive for appetite change, chills, diaphoresis and fatigue. Negative for fever. HENT: Negative for congestion, sinus pain, sore throat and trouble swallowing. Respiratory: Negative for cough, shortness of breath and wheezing. Cardiovascular: Negative for chest pain, palpitations and leg swelling. Gastrointestinal: Negative for abdominal pain, blood in stool, constipation, diarrhea, nausea and vomiting. Genitourinary: Negative for dysuria and hematuria. Patient straight caths 6-7 times a day Musculoskeletal: Positive for gait problem. Neurological: Positive for weakness and light-headedness. Negative for syncope, speech difficulty and headaches. Psychiatric/Behavioral: Negative for confusion, decreased concentration and sleep disturbance. OBJECTIVE: BP 104/66 | Pulse 64 | Temp 37.4 C (99.4 F) (Tympanic) | Resp 16 | Ht 1.81 m (5' 11.25") | Wt 82.9 kg (182 lb 11.2 oz) | SpO2 94% | BMI 25.30 kg/m | BSA 2.04 m Physical Exam Vitals and nursing note reviewed. Constitutional: General: He is in acute distress. Appearance: He is ill-appearing. HENT: Head: Normocephalic and atraumatic. Cardiovascular: Rate and Rhythm: Normal rate and regular rhythm. Heart sounds: Normal heart sounds. No murmur heard. No gallop. Pulmonary: Breath sounds: Normal breath sounds. No wheezing, rhonchi or rales. Abdominal: General: Bowel sounds are normal. There is no distension. Palpations: Abdomen is soft. Tenderness: There is no abdominal tenderness. Musculoskeletal: Right lower leg: No edema. Left lower leg: No edema. Neurological: Mental Status: He is oriented to person, place, and time. Motor: Weakness present. Gait: Gait abnormal. Psychiatric: Mood and Affect: Mood normal. Behavior: Behavior normal. Thought Content: Thought content normal. Positional BP BP supine 142/61, pulse supine 61 BP seated 114/68, pulse seated 65 Unable to obtain standing BP since patient is too weak to stand at this time ECG: Sinus PACs, Septal infarct age undetermined. ST, T abnormality in inferior and lateral leads Component Latest Ref Rng 03/02/2023 BUN 6 - 20 mg/dL 18 Creatinine 0.6 - 1.2 mg/dL 1.4 (H) Estimated Glomerular Filtration Rate >=60 mL/min 49 (L) Sodium 135 - 146 mmol/L 133 (L) Potassium 3.5 - 5.1 mmol/L 4.5 Chloride 98 - 107 mmol/L 98 CO2 22 - 32 mmol/L 28 Anion Gap 7 - 15 mmol/L 7 Glucose 70 - 120 mg/dL 145 (H) Albumin 3.8 - 5.0 g/dL 3.2 (L) AST 10 - 50 U/L 19 Alkaline Phosphatase 35 - 130 U/L 65 Bilirubin, Total <=1.2 mg/dL 0.6 Calcium 8.4 - 10.2 mg/dL 9.1 Protein 6.0 - 8.3 g/dL 6.3 ALT 10 - 50 U/L <5 (L) WBC 4.00 - 10.80 K/uL 5.66 RBC 4.50 - 5.25 M/uL 3.27 HGB 14.0 - 16.8 g/dL 11.3 (L) HCT 40.0 - 48.4 % 34.7 (L) MCV 82.0 - 99.5 fL 106.1 MCH 27.0 - 34.0 pg 34.6 MCHC 32.0 - 36.0 g/dL 32.6 RDW 11.5 - 15.5 % 14.0 PLT 140 - 400 K/uL 194 MPV 6.6 - 11.1 fL 11.0 WBC 4.00 - 10.80 K/uL 5.66 Neutrophils % 40.0 - 75.0 % 88.0 (H) Lymphocytes % 18.0 - 42.0 % 7.0 (L) Monocytes % 1.0 - 11.0 % 5.0 Absolute Neutrophils 1.80 - 7.70 K/uL 4.98 Absolute Lymphocytes 1.00 - 4.80 K/uL 0.40 (L) Absolute Monocytes 0.00 - 1.10 K/uL 0.28 Legend: (H) High (L) Low PLAN AND ASSESSMENT: Postural dizziness with presyncope (Primary) - 3 POSITIONAL BLOOD PRESSURE Concern for systemic infection post AVR. Small post op pleural effusion was present Possible infection sources lungs, and bladder Patient sent to ED at [facility] by ambulance Orthostatic hypotension - 3 POSITIONAL BLOOD PRESSURE Volume depletion - 3 POSITIONAL BLOOD PRESSURE Rigors Fatigue, unspecified type - EKG S/P aortic valve replacement - EKG Atherosclerosis of ango[place] coronary artery of [place]on heart without angina pectoris Continue Carvedilol Paroxysmal atrial fibrillation (HCC) Continue Apixaban, and Carvedilol Amiodarone was to be stopped 28 days after admission Aortic root enlargement (HCC) Gouty arthropathy Continue Allopurinol Disc disorder of lumbar region HTN, GOAL BELOW 140/90 Dyslipidemia, goal LDL below 70 Neurogenic bladder Continue to straight cath Prediabetes Hypothyroidism due to acquired atrophy of thyroid Continue Levothyroxine Hypertensive kidney disease with stage 3b chronic kidney disease (HCC) Infrarenal abdominal 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 (HCC) S/P AVR (aortic valve replacement) Colbert's esophagus with high grade dysplasia History of coronary artery bypass graft Yanick Canseco DO 3:27 PM 03/02/2023 documented in this encounter Procedure Notes * Dheeraj Gutierrez DO - 03/02/2023 3:08 PM ESTAssociated Order(s): EKG REASON FOR STUDY: fatigue CONCLUSIONS: Sinus rhythm with Premature atrial complexes Septal infarct , age undetermined ST & T wave abnormality, consider inferolateral ischemia Abnormal ECG When compared with ECG of 27-FEB-2023 11:20, Premature atrial complexes are now Present Septal infarct is now Present T wave inversion more evident in Lateral leads Ventricular Rate: 61 Atrial Rate: 61 MD Interval: 194 QRS Duration: 114 QT/QTc: 440/442 ms P-R-T [place]: 90 : 16 : 250 degrees documented in this encounter Nursing Notes * Argenis Sauer LPN - 03/02/2023 2:58 PM EST Fatigue, not hungry and cold. * Argenis Sauer LPN - 03/02/2023 2:48 PM EST EKG done per order. documented in this encounter Plan of Treatment Upcoming Encounters Date Type Department Care Team (Late st Contact Info) Description 03/15/2023 9:20 AM EST Office Visit Family Practice [address] [place] [address] [place] [address] Yanick Canseco, [address] [place] [address] 03/17/2023 10:30 AM EST Office Visit Gastroenterology, [facility] [address] [facility] [place] [address] Patricia Mejia CRNP [address] [facility] [phone] 04/12/2023 3:00 PM EST Office Visit Card[facility], [facility] [address] Bessy Gill, PATRICE [address] [facility] [place] [phone] 06/30/2023 11:20 AM EDT Office Visit Nephrology, [facility] [address] [place] [address] Ryan Issa MD [address] [place] [address] 08/18/2023 3:00 PM EDT Office Visit Nephrology, [facility] [address] [place] [address] Ryan Issa MD [address] [place] [address] 08/22/2023 11:00 AM EDT Imaging Radiology [facility] [address] [facility] [place] [address] 02/27/2025 3:40 PM EST Office Visit Dermatology, [place] [address] [facility] [place] [address] Laure Arias PA-C [address] [place] [address] [place] [address] Scheduled Orders Name Type Priority Associated Diagnoses Orde r Schedule 3 POSITIONAL BLOOD PRESSURE Procedures Routine Orthostatic hypotension Volume depletion Postural dizziness with presyncope Ordered: 03/02/2023 Health Maintenance Due Date Last Done Comments Colbert's Esophagus Surveilance 03/17/2019 03/17/2016, 04/29/2014, 03/23/2012, Additional history exists COVID-19 Vaccine ( season) 2022 04/19/2022, 12/06/2021, 02/24/2021, Additional history exists GFR 08/31/2023 03/02/2023, 02/15, 02/17/2023, Additional history exists Albumin/Creatinine Ratio 09/07/2023 023, 09/21/2021, 09/10/2013, Additional history exists HbA1c 12/14/2023 12/13/2022, 08/16, 03/09/2022, Additional history exists Depression Screening 02/24/2024 02/23/2023 CKD PHOS USE SMARTSET 14737 02/28/202402/15, 12/13/2022, 10/11/2021, Additional history exists TSH 02/28/2024 02/27/2023, 10/15, 09/05/2022, Additional history exists CKD HGB USE SMARTSET 72855 03/02/202403/02, 03/02/2023, 02/27/2023, Additional history exists DTaP,Tdap,and Td Vaccines (2 [...] Procedure Name Priority Date/Time Associated Diagnosis Comments MD ECG ROUTINE ECG W/LEAST 12 LDS TRCG ONLY W/O I&R Routine 03/02/2023 3:08 PM EST Fatigue, unspecified type S/P aortic valve replacement documented in this encounter Results * EKG (03/02/2023 3:08 PM EST) 03/02/2023 3:08 PM EST Narrative Procedure Note Dheeraj Gutierrez, - 03/02/2023 3:08 PM EST REASON FOR STUDY: fatigue CONCLUSIONS: Sinus rhythm with Premature atrial complexes Septal infarct , age undetermined ST & T wave abnormality, consider inferolateral ischemia Abnormal ECG When compared with ECG of 27-FEB-2023 11:20, Premature atrial complexes are now Present Septal infarct is now Present T wave inversion more evident in Lateral leads Ventricular Rate: 61 Atrial Rate: 61 MD Interval: 194 QRS Duration: 114 QT/QTc: 440/442 ms P-R-T [place]: 90 : 16 : 250 degrees Yanick Canseco DO EKG [facility] documented in this encounter Visit Diagnoses Diagnosis Postural dizziness with presyncope- Primary Orthostatic hypotension Volume depletion Volume depletion, unspecified Rigors Other general symptoms Fatigue, unspecified type S/P aortic valve replacement Heart valve replaced by other means Atherosclerosis of [place]on coronary artery of [place] heart without angina pectoris Paroxysmal atrial fibrillation (HCC) Atrial fibrillation Aortic root enlargement (HCC) Other specified disorders of arteries and arterioles Gouty arthropathy Gouty arthropathy, unspecified Disc disorder [...] abdominal 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 (HCC) S/P AVR (aortic valve replacement) Heart valve replaced by other means Colbert's esophagus with high grade dysplasia Colbert's esophagus 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 documented in this encounter Care Teams International Representative Relationship Specialty Start Date End Date Yanick Canseco DO [address] [place] [address] PCP - General Internal Medicine 04/07/22 documented as of this encounter
--- OUTSIDE RECORDS SUMMARY | 2023-03-04 17:53 | External Medical Summary | Summary of Care ---
Author Name Unknown Organization [facility] Address [address] [place] [address] Phone [phone] Care Team Providers Care Receiving Tank Operator Name Role Phone Génesis Canseco DO Primary Care Provider [phone] Reason for Visit * Reason Onset Date Comments Advice 03/02/2023 advise Encounter Details Date Type Department Care Team (Late st Contact Info) Description 03/02/2023 Telephone Family Practice 65 [facility] [address] [place] [address] Génesis Canseco DO [address] [place] [address] Advice (advise) Allergies Active Allergy Reactions Criticality [...] Tablet by mouth every evening. 0 Active [place]-3 Fatty Acids (ULTRA OMEGA 3) 952 MG [...] Sublingual Tablet Sublingual (Nitrostat)Indicat ions:Atheroscleros is of sioux coronary artery of sioux heart without angina pectoris Place under [...] bypass graft 10/15/19 08 Coronary atherosclerosis of [place] coronary celina ry 10/15/2007 BPH without obstruction/lower urinary tract symp toms 09/08/2005 Other allergic rhinitis 02/28/2001 Overview: ICD-10 update of inactive term Hastings's esophagus with high grade dysplasia Overview: Hastings's esophagus: egd by Dr Grant () f/u EGD 2001- neg per pt Cyst of kidney, acquired Overview: followed at [place] documented as of this encounter (statuses as [...] 3.4 by CTA 08/09/2012 [employer] Other*[id number] 03/08/2011 05/24/2016 Shortness of breath 02/22/2011 12/09/19 [...] LNP-s, No Preserve , Adiel-sucrose, Ages 12+ (Channel M) 12/06/2021 COVID-19, mRNA, LNP-s, PF, B ooster, [...] encounter Miscellaneous Notes * Addendum Note - Génesis Canseco DO - 03/02/2023 1:24 PM ESTAddended by: GÉNESIS CANSECO on: 03/02/2023 01:24 PM Modules accepted: Orders * Telephone Encounter - Génesis Canseco DO - 03/02/2023 1:22 PM EST Check CMP, and CBC stat at [facility] Needs Urine POC and Urine culture * Telephone Encounter - Argenis Sauer LPN - 03/02/2023 11:28 AM EST Called, no chest pain or sob some dizziness. Is not taking his blood pressure. Denies fever. Denies and N/V/D. Would like to be seen * Telephone Encounter - Celina Malloy OSA - 03/02/2023 9:38 AM EST Pt calling to state he recently had open hear surgery at [facility]. States the past three days he [...] with us. He can be reached at [phone]. documented in this encounter Plan of Treatment Upcoming Encounters Date Type Department Care Team (Late st Contact Info) Description 03/15/2023 9:20 AM EST Office Visit Family Practice [address] [place] [address] [address] [place] [address] Génesis Canseco DO [facility] [address] 03/17/2023 10:30 AM EST Office Visit Gastroenterology, [facility] [address] [facility] [place] [address] Patricia Mejia CRNP [address] [facility] [place] [address] 04/12/2023 3:00 PM EST Office Visit Cardiology, [facility] [place] [address] Bessy Gill PA-C [address] [place] [address] 06/30/2023 11:20 AM EDT Office Visit Nephrology, [facility] [address] [place] [address] Ryan Issa MD [address] [place] [address] 08/18/2023 3:00 PM EDT Office Visit Nephrology, [facility] [address] [place] [address] Ryan Issa MD [address] [place] [address] 08/22/2023 11:00 AM EDT Imaging Radiology [facility] [address]st [facility] 132 [facility] [place] [address] 02/27/2025 3:40 PM EST Office Visit [address] [place] [address] Laure Arias PA-C [address] [place] [address] [place] [phone] Scheduled Orders Name Type Priority Associated Diagnoses Orde r Schedule COMPREHENSIVE METABOLIC PANEL Lab STAT Malaise and fatigue Expected: 03/02/2023 (Approximate), Expires: 2024 CBC WITH WBC DIFFERENTIAL Lab STAT Malaise and fatigue Expected: 03/02/2023 (Approximate), Expires: 03/02/2024 Health Maintenance Due Date Last Done Comments Hastings's Esophagus Surveilance 03/17/2019 03/17/2016, 04/29/2014, 03/23/2012, Additional history exists COVID-19 Vaccine ( season) 2022 04/19/2022, 12/06/2021, 02/24/2021, Additional history exists GFR 08/28/2023 02/27/2023, 06/2022, 10/25/2022, Additional history exists Albumin/Creatinine Ratio 09/07/2023 023, 09/21/2021, 09/10/2013, Additional history exists HbA1c 12/14/2023 12/13/2022, 08/16, 03/09/2022, Additional history exists Depression Screening 02/24/2024 02/23/2023 CKD HGB USE SMARTSET 74672 02/28/202402/27, 02/27/2023, 02/17/2023, Additional history exists CKD PHOS USE SMARTSET 81146 02/28/202402/15, 12/13/2022, 10/11/2021, Additional history exists TSH [...] as of this encounter Visit Diagnoses Diagnosis Malaise and fatigue- Primary Other malaise and fatigue documented in this encounter Care Teams Receiving Tank Operator Relationship Specialty Start Date End Date Génesis Canseco DO [address] [place] [address] PCP - General Internal Medicine 04/07/22 documented as of this encounter
--- OUTSIDE RECORDS SUMMARY | 2023-03-04 17:53 | External Medical Summary | Summary of Care ---
Author Name Unknown Organization [facility] Address [address] [place] [address] Phone [phone] Care Team Providers Care Motor Operator Name Role Phone Yanick Canseco DO Primary Care Provider [phone] Reason for Visit * Reason Comments Outpatient Testing Encounter Details Date Type Department Care Team (Late st Contact Info) Description 03/02/2023 2:50 PM EST Laboratory Laboratory, [facility] [address] [place] [id number] [facility] 132 [place] [address] Malaise and fatigue Allergies Active Allergy Reactions Criticality Noted Date [...] Tablet by mouth every evening. 0 Active [place]-3 Fatty Acids (ULTRA OMEGA 3) 952 MG [...] bypass graft 10/15/19 08 Coronary atherosclerosis of [place] coronary celina ry 10/15/2007 BPH without obstruction/lower urinary tract symp toms 09/08/2005 Other allergic rhinitis 02/28/2001 Overview: ICD-10 update of inactive term Hastings's esophagus with high grade dysplasia Overview: Hastings's esophagus: egd by Dr Grant () f/u EGD 2001- neg per pt Cyst of kidney, acquired Overview: followed at [facility] documented as of this encounter (statuses as [...] 3.4 by CTA 08/09/2012 [facility] Other*[id number] 03/08/2011 05/24/2016 Shortness of breath 02/22/2011 12/09/19 [...] LNP-s, No Preserve , Adiel-sucrose, Ages 12+ ([employer]) 12/06/2021 COVID-19, mRNA, LNP-s, PF, B ooster, [...] AM EST Office Visit Family Practice 65 [facility] [place] [address] [place] [address] Yanick Canseco DO 293 [place] [address] 03/17/2023 10:30 AM EST Office Visit Gastroenterology, [facility] 132 [facility] [place] [address] Patricia Mejia CRNP 132 [facility] [place] [address] 04/12/2023 3:00 PM EST Office Visit Cardiology, [facility] 132 [facility] [place] [address] Bessy Gill PA-C 132 [facility] [place] [address] 06/30/2023 11:20 AM EDT Office Visit Nephrology, [facility] [address] [place] [address] Ryan Issa MD [address] [place] [address] 08/18/2023 3:00 PM EDT Office Visit Nephrology, [facility] [address] [place] [address] Ryan Issa MD [address] [place] [address] 08/22/2023 11:00 AM EDT Imaging Radiology [facility] [address] [facility] 132 [facility] [place] [address] 02/27/2025 3:40 PM EST Office [place] [address] [place] [address] Larue Arias PA-C [address] [place] [address] [place] [address] Pending Results Name Type Priority Associated Diagnoses Date /Time COMPREHENSIVE METABOLIC PANEL Lab STAT Malaise and fatigue 03/02/2023 2:23 PM EST CBC WITH WBC DIFFERENTIAL Lab STAT Malaise and fatigue 03/02/2023 2:23 PM EST CBC Lab STAT Malaise and fatigue 03/02/2023 2:23 PM EST DIFFERENTIAL, AUTOMATED Lab STAT Malaise and fatigue 03/02/2023 2:23 PM EST Health Maintenance Due Date Last Done Comments Hastings's Esophagus Surveilance 03/17/2019 03/17/2016, 04/29/2014, 03/23/2012, Additional history exists COVID-19 Vaccine ( season) 2022 04/19/2022, 12/06/2021, 02/24/2021, Additional history exists GFR 08/28/2023 02/27/2023, 06/2022, 10/25/2022, Additional history exists Albumin/Creatinine Ratio 09/07/2023 023, 09/21/2021, 09/10/2013, Additional history exists HbA1c 12/14/2023 12/13/2022, 08/16, 03/09/2022, Additional history exists Depression Screening 02/24/2024 02/23/2023 CKD HGB USE SMARTSET 28309 02/28/202402/27, 02/27/2023, 02/17/2023, Additional history exists CKD PHOS USE SMARTSET 12007 02/28/202402/15, 12/13/2022, 10/11/2021, Additional history exists TSH [...] this encounter Visit Diagnoses Diagnosis Malaise and fatigue Other malaise and fatigue documented in this encounter Care Teams Motor Operator Relationship Specialty Start Date End Date Yanick Canseco DO [address] [facility] [place] [address] PCP - General Internal Medicine 04/07/22 documented as of this encounter
--- OUTSIDE RECORDS SUMMARY | 2023-03-04 17:53 | External Medical Summary | Summary of Care ---
Author Name Unknown Organization [facility] Address [address] [place] [address] Phone [phone] Care Team Providers Care Hobbing Press Operator Name Role Phone Génesis Canseco DO Primary Care Provider [phone] Reason for Visit * Reason Onset Date Comments Advice 03/02/2023 advise Encounter Details Date Type Department Care Team (Late st Contact Info) Description 03/02/2023 Telephone Family Practice 65 [facility] [address] [place] [address] Génesis Canseco DO [address] [place] [address] Advice (advise) Allergies Active Allergy Reactions Criticality [...] Tablet by mouth every evening. 0 Active [place]-3 Fatty Acids (ULTRA OMEGA 3) 952 MG [...] Cyst of kidney, acquired Overview: followed at [facility] documented as of this encounter (statuses as [...] 3.4 by CTA 08/09/2012 [facility] Other*[id number] 03/08/2011 05/24/2016 Shortness of breath 02/22/2011 12/09/19 [...] LNP-s, No Preserve , Adiel-sucrose, Ages 12+ ([employer]) 12/06/2021 COVID-19, mRNA, LNP-s, PF, B ooster, [...] Encounter - Argenis Sauer LPN - 03/02/2023 1:25 PM EST Patient will go to [facility] for stat labs. Please add to schedule today at [address] Canseco. Patient is aware and will comply. * Addendum Note - Génesis Canseco DO - 03/02/2023 1:24 PM ESTAddended by: GÉNESIS CANSECO on: 03/02/2023 01:24 PM Modules accepted: Orders * Telephone Encounter - Génesis Canseco DO - 03/02/2023 1:22 PM EST Check CMP, and CBC stat at [facility] Needs Urine POC and Urine culture * [...] he recently had open hear surgery at [facility]. States the past three days he [...] with us. He can be reached at [phone]. documented in this encounter Plan of Treatment Upcoming Encounters Date Type Department Care Team (Late st Contact Info) Description 03/15/2023 9:20 AM EST Office Visit Family Practice [address], [place] [address] [place] [phone] Génesis Canseco DO 293 [place] [address] 03/17/2023 10:30 AM EST Office Visit Gastroenterology, [facility] 132 [facility] [place] [address] Patricia Mejia CRNP [address] [place] [address] 04/12/2023 3:00 PM EST Office Visit Cardiology, [facility] 132 [facility] [place] [address] Bessy Gill PA-C 132 [facility] [place] [address] 06/30/2023 11:20 AM EDT Office Visit Nephrology, [facility] [address] [place] [address] Ryan Issa MD [address] [place] [address] 08/18/2023 3:00 PM EDT Office Visit Nephrology, [facility] [address] [place] [address] Ryan Issa MD [address] [place] [address] 08/22/2023 11:00 AM EDT Imaging Radiology [facility] 1st Floor, [place] 132 [facility] [place] [address] 02/27/2025 3:40 PM EST Office Visit Dermatology[address] [place] [address] Laure Arias PA-C [address] [place] [address] [place] [address] Scheduled Orders Name Type Priority Associated Diagnoses [...] Screening 02/24/2024 02/23/2023 CKD HGB USE SMARTSET 73865 02/28/202402/27, 02/27/2023, 02/17/2023, Additional history exists CKD PHOS USE SMARTSET 38643 02/28/202402/15, 12/13/2022, 10/11/2021, Additional history exists TSH [...] fatigue documented in this encounter Care Teams Hobbing Press Operator Relationship Specialty Start Date End Date Génesis Canseco DO [address] [place] [address] PCP - General Internal Medicine 04/07/22 documented as of this encounter
--- OUTSIDE RECORDS SUMMARY | 2023-03-04 17:53 | External Medical Summary | Summary of Care ---
Author Name Unknown Organization [facility] Address [address] [place] [address] Phone [phone] Care Team Providers Care Botany Laboratory Assistant Name Role Phone Génesis Canseco DO Primary Care Provider [phone] Reason for Visit * Reason Onset Date Comments Advice 03/02/2023 advise Encounter Details Date Type Department Care Team (Late st Contact Info) Description 03/02/2023 Telephone Family Practice 65 [facility] 293 [place] [address] Génesis Canseco DO [address] [place] [address] Advice (advise) Allergies Active Allergy Reactions Criticality [...] Tablet by mouth every evening. 0 Active [place]-3 Fatty Acids (ULTRA OMEGA 3) 952 MG [...] Sublingual Tablet Sublingual (Nitrostat)Indicat ions:Atheroscleros is of [place] coronary artery of [place] heart without angina pectoris Place under [...] bypass graft 10/15/19 08 Coronary atherosclerosis of [place] coronary celina ry 10/15/2007 BPH without obstruction/lower [...] 3.4 by CTA 08/09/2012 [facility] [facility] Other*[id number] 03/08/2011 05/24/2016 Shortness of breath 02/22/2011 12/09/19 [...] LNP-s, No Preserve , Adiel-sucrose, Ages 12+ ([employer]) 12/06/2021 COVID-19, mRNA, LNP-s, PF, B ooster, [...] Encounter - Celina Malloy OSA - 03/02/2023 1:41 PM EST Appt added * Telephone Encounter - Argenis Saure LPN - 03/02/2023 1:25 PM EST Patient [facility] go to [facility] for stat labs. Please add to schedule today [place] [address] Canseco. Patient is aware and will comply. * Addendum Note - Génesis Canseco DO - 03/02/2023 1:24 PM ESTAddended by: GÉNESIS CANSECO on: 03/02/2023 01:24 PM Modules accepted: Orders * Telephone Encounter - Génesis Canseco DO - 03/02/2023 1:22 PM EST Check CMP, and CBC stat at [facility] Needs Urine POC and Urine [...] he recently had open hear surgery at [facility]. States the past three days [...] with us. He can be reached at [phone]. documented in this encounter Plan of Treatment Upcoming Encounters Date Type Department Care Team (Late st Contact Info) Description 03/02/2023 2:30 PM EST Office Visit [facility] 65 [facility] 293 [place] [address] Génesis Canseco, DO 293 [place] [address] 03/15/2023 9:20 AM EST Office Visit Family Practice 65 [facility] 293 [place] [address] Génesis Canseco, DO 293 [place] [address] 03/17/2023 10:30 AM EST Office Visit Gastroenterology, [facility] 132 [facility] [place] [address] Patricia [facility]jia CRNP [facility] [place] [address] 04/12/2023 3:00 PM EST Office Visit Cardiology, [facility] [place] [address] Bessy Gill, PATRICE [facility] [place] [address] 06/30/2023 11:20 AM EDT Office Visit Nephrology, [facility] [address] [place] [address] Ryan Issa MD [address] [place] [address] 08/18/2023 3:00 PM EDT Office Visit Nephrology, [facility] [address] [place] [address] Ryan Issa MD [address] [place] [address] 08/22/2023 11:00 AM EDT Imaging Radiology [address] 132 [facility] [place] [address] 02/27/2025 3:40 PM EST Office Visit Dermatology [place] [address] [facility] [place] [address] Laure Arias PA-C [address] [place] [address] [place] [address] Scheduled Orders Name Type Priority Associated Diagnoses [...] Screening 02/24/2024 02/23/2023 CKD HGB USE SMARTSET 48501 02/28/202402/27, 02/27/2023, 02/17/2023, Additional history exists CKD PHOS USE SMARTSET 35617 02/28/202402/15, 12/13/2022, 10/11/2021, Additional history exists TSH [...] fatigue documented in this encounter Care Teams Botany Laboratory Assistant Relationship Specialty Start Date End Date Génesis Canseco DO [address] [place] [address] PCP - General Internal Medicine 04/07/22 documented as of this encounter
--- NOTE | 2023-03-04 18:59 | Hospitalist Progress Note ---
Date of Service March 04, 2023 Assessment & Plan (1) Hypotension: Plan: Multifactorial : Hypovolemia from complicated UTI, recurrent UTIs secondary to neurogenic bladder (intermittent straight cath at home)/BPH on chronic methenamine suppression Rx, no sepsis for now High home Coreg dose contributory hx CAD status post CABG/PVD A-fib on Eliquis valvular heart disease (mild MR/TR) severe aortic regurgitation status post recent surgery Postop anemia, hemoglobin stable at 11 hyperlipidemia, on statin Rx hypothyroidism, recent outpatient TSH elevated at 7 with normal free T4 prediabetes, hemoglobin A1c of 6.2 last May 2022 esophageal cancer status post surgery 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 Nicole DNR 03/04 Clinically improving Afebrile Urine culture: E. coli pansensitive Blood cultures: Negative so far Echo: Left ventricular systolic function is normal, EF 55 to 60%, mild concentric LVH, bioprosthetic aortic valve present, gradient is normal, no significant prostatic valve regurgitation Continue ceftriaxone day #2 Follow-up blood cultures HR 50s Coreg decreased Heart rate currently in the 60s After closely Disposition anticipate d/c home tomorrow Admission and Anticipated Discharge Date Admission Date: March 02, 2023 Subjective Follow-up for UTI, etc. Seen resting in bed, comfortable, not in distress In good spirits States he feels better compared to yesterday Strength mostly back to baseline Appetite also good No abdominal pain, nausea vomiting, fevers or chills No other symptoms Review of Systems Review of Systems: all noted and negative except for above Physical Exam Physical Exam: General- oriented x 3, not in distress, speaks in sentences with no effort or accessory muscle use Eyes- anicteric Neck- no JVD Lungs- clear breath sounds bilaterally, no rales/wheezes Heart- normal rate, regular rhythm; no murmurs Abdomen- normal bowel sounds, nondistended, soft, nontender Extremities- no pretibial edema, no calf tenderness Neuro- alert, oriented x 3; no gross focal neurologic deficits Skin- warm & dry Results & Data Results & Data Vital Signs (Past 12 Hours) Vital Signs Temp Pulse Pulse Resp BP Pulse Ox O2 Del Method 03/04/23 16:12 63 03/04/23 15:32 36.8 C 60 16 129/81 96 Room Air 03/04/23 11:44 37.0 C 61 16 143/84 H 95 Room Air 03/04/23 07:44 60 03/04/23 07:44 Room Air 03/04/23 07:31 37.0 C 60 16 135/75 96 Room Air all noted and reviewed including below
[2023-03-04] MEDS: cefTRIAXone SODIUM 2,000 MG in DEXTROSE 5 % MINI-B 50 ML IV SCH (22:07)
[2023-03-04] MEDS: ASPIRIN 81 MG ECTAB PO SCH (22:12)
[2023-03-05] MEDS: LEVOTHYROXINE SODIUM 150 MCG TABLET PO SCH (06:09)
[2023-03-05] MEDS: AMIODARONE 200 MG TAB PO SCH (07:53)
[2023-03-05] MEDS: MULTIVITAMIN TAB PO SCH (07:54)
[2023-03-05] MEDS: ATORVASTATIN 20 MG TAB PO SCH (07:54)
[2023-03-05] MEDS: APIXABAN 2.5 MG TAB PO SCH (07:54)
[2023-03-05] MEDS: carvediloL 3.125 MG TAB PO SCH (07:54)
[2023-03-05] MEDS: allopurinoL 100 MG TAB PO SCH (07:54)
[2023-03-05] MEDS: PANTOprazole 40 MG TAB PO SCH (07:55)
[2023-03-05] MEDS: CHOLESTYRAMINE LIGHT 4 GM PKT PO SCH (10:28)
--- NOTE | 2023-03-05 18:18 | Discharge Summary ---
Discharge Summary Date of Service March 05, 2023 Notes For Next Care Provider Medication Changes From Visit Cefuroxime 250mg BID Admission HPI Per Admitting Provider History obtained from patient and records. 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 Last confinement May 2022 for bilateral pneumonia status post doxycycline Rx. Recent [facility] confinement February 07 to 2022 for severe aortic regurgitation status post redo sternotomy, AVR, biatrial maze, ISAÍAS ligation. Postop TTE showed EF of 55%. Postop hemoglobin of 11 on discharge. Postop amiodarone course for 1 month prescribed. Outpatient cardiac rehab recommended. No concerns on outpatient [facility] cardiology follow-up visit a few days ago. 3 days ago, patient noted chills and rigors and increasing weakness. No chest pain, SOB, cough symptoms. No abdominal pain, diarrhea, back pain, dysuria symptoms. Poor appetite. Lightheadedness without headache symptoms. Patient directed to ER for evaluation. IV ceftriaxone administered at the ER for possible UTI. Chambers catheter placed as per patient request for comfort. Lowest SBP of 90s documented at the ER. 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 Admission Exam Per Admitting Provider GENERAL: Slightly uncomfortable, pleasant, no respiratory distress SKIN: Pallor, warm HEENT: Partial alopecia, pale palpebral conjunctivae, no ptosis, dry buccal mucosa NECK : Supple, no tenderness CHEST : CTA, no tenderness HEART : RRR, systolic murmur ABDOMEN: Some distention, nontender EXTREMITIES : No LE swelling/tenderness, no other conspicuous deformities noted NEUROLOGIC : Coherent, no facial asymmetry, slightly hard of hearing, no other gross focality Principal Dx & Hospital Course #1 = Principal Diagnosis (1) Hypotension: Multifactorial : Hypovolemia from complicated UTI, recurrent UTIs secondary to neurogenic bladder (intermittent straight cath at home)/BPH on chronic methenamine suppression Rx, no sepsis for now High home Coreg dose contributory hx CAD status post CABG/PVD A-fib on Eliquis valvular heart disease (mild MR/TR) severe aortic regurgitation status post recent surgery Postop anemia, hemoglobin stable at 11 hyperlipidemia, on statin Rx hypothyroidism, recent outpatient TSH elevated at 7 with normal free T4 prediabetes, hemoglobin A1c of 6.2 last May 2022 esophageal cancer status post surgery past history 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 coli pansensitive Blood cultures: Negative so far Echo: Left ventricular systolic function is normal, EF 55 to 60%, mild concentr ic LVH, bioprosthetic aortic valve present, gradient is normal, no significant prostatic valve regurgitation -- complete Cefuroxime 250mg BID to finish 10 day course of abx total HR 50s Coreg decreased to 6.25mg BID Heart rate currently in the 60s -- monitor closely Disposition d/c home ff up with PCP in 1 week Discharge Exam General- oriented x 3, not in distress, speaks in sentences with no effort or accessory muscle use Eyes- anicteric Neck- no JVD Lungs- clear breath sounds bilaterally, no rales/wheezes Heart- normal rate, regular rhythm; no murmurs Abdomen- normal bowel sounds, nondistended, soft, nontender Extremities- no pretibial edema, no calf tenderness Neuro- alert, oriented x 3; no gross focal neurologic deficits Skin- warm & dry Updated Medication List Medication Instructions Recorded Confirmed Type allopurinol 100 mg tablet 100 mg PO BID 07/30/18 03/02/23 History ascorbic acid (vitamin C) 1,000 mg 1,000 mg PO BID 07/30/18 03/02/23 History tablet (Vitamin C) aspirin 81 mg tablet,delayed 81 mg PO HS 07/30/18 03/02/23 History release ([place] Low Dose Aspirin) fish, borage, flaxseed oils-omega 1 cap PO BID 07/30/18 03/02/23 History 3,6,9 cb #1 400 mg-400 mg-400 mg cap ([place] 3-6-9 Complex) multivitamin 2 tab PO BID 07/30/18 03/02/23 History omeprazole 40 mg capsule,delayed 40 mg PO QAM 07/30/18 03/02/23 History release vitamin E 268 mg (400 unit) capsule 400 unit PO UD 07/30/18 03/02/23 History acetaminophen 500 mg tablet 1,000 mg PO Q6H PRN Pain 09/19/19 03/02/23 History glucosamine sulfate 500 mg tablet 500 mg PO BID 09/19/19 03/02/23 History (Glucosamine) nitroglycerin 0.4 mg sublingual 0.4 mg sublingual Q5M PRN Pain 10/09/19 03/02/23 History tablet atorvastatin 20 mg tablet 20 mg PO QAM 03/15/22 03/02/23 History cholestyramine-aspartame 4 gram 4 g PO QAM 06/03/22 03/02/23 History oral powder (Cholestyramine Light) coenzyme Q10 100 mg capsule 600 mg PO BID 06/07/22 03/02/23 History (CoQ-10) cranberry 500 mg capsule 500 mg PO QAM 06/07/22 03/02/23 History levothyroxine 150 mcg tablet 150 mcg PO QAM 06/07/22 03/02/23 History prasterone (dhea) 50 mg capsule 50 mg PO QAM 06/07/22 03/02/23 History (DHEA) cholecalciferol (vitamin D3) 25 25 mcg PO BID 10/26/22 03/02/23 History mcg (1,000 unit) tablet (Vitamin D3) amiodarone 200 mg tablet 200 mg PO QAM 03/02/23 03/02/23 History apixaban 2.5 mg tablet (Eliquis) 2.5 mg PO BID 03/02/23 03/02/23 History nitrofurantoin macrocrystal 50 mg 50 mg PO DAILY 03/02/23 03/02/23 History capsule carvedilol 12.5 mg tablet 6.25 mg (1/2 x 12.5 mg) PO BID #60 03/05/23 03/02/23 Rx tabs cefuroxime axetil 250 mg tablet 250 mg PO BID 8 days #16 tabs 03/05/23 Rx Hospital Stay Data Consultations 03/02/23 22:03 ED Decision to Admit Stat Pending Results Patient Have Any Pending Studies at Discharge: Yes Discharge Instructions Given to Patient (Per Discharging Provider) PLEASE REFER TO YOUR NEW MEDICATION LIST AND FOLLOW INSTRUCTIONS CAREFULLY. YOUR NEW MEDICATIONS INCLUDE: Cefuroxime-antibiotic for urinary tract infection Please take a probiotic daily for at least 1 month. [employer] brand recommended. PLEASE CALL YOUR PRIMARY CARE PHYSICIAN OR RETURN TO THE ER IF WITH WORSENING OF SYMPTOMS, INCLUDING Fevers or chills, weakness, abdominal pain, nausea or vomiting, etc. FOLLOW UP WITH PRIMARY CARE PHYSICIAN IN 1 WEEK. Total Time Total Time Spent Total Time Spent (In Minutes): >30 minutes
== END 2023-03-05 14:44 | disposition home or self-care (01) | DRG 690 ==
LOC: ED 16:17 → 2W 23:10 → 2N 03-04 04:52

== ENCOUNTER 2024-02-12 14:20 | Inpatient (IN) ==
--- NOTE | 2024-02-12 14:26 | ED Triage Note ---
Date of Service February 12, 2024 Provider in Triage Author: Bryant Rodriguez History of Present Illness This patient was briefly evaluated while in triage. An abbreviated physical exam was performed. This patient is a 83-year-old Male who presents to the ED for evaluation hx of afib, HTN, dyslipidemia, CAD, hypothyroidism has LIH, having increased pain x 3 days saw [facility] PCP last week and was referred to general surgery for 02/15, but "doesn't think he can wait that long to see them." chronic self-caths Physical Exam GENERAL: NAD CARDIOVASCULAR: RRR RESPIRATORY: CTA ABDOMEN: BS x 4. Mild LLQ TTP. Initial orders for labs and / or imaging were placed and patient was placed in the waiting area until a bed is available. Please see further documentation for the full ED course.
[2024-02-12 15:05] LABS: Basophils % (auto) 1.5 %; Eosinophils # (auto) 0.23 K/uL (0.00-0.50); Eosinophils % (auto) 3.3 %; Hematocrit (blood only) 46.3 % (42.0-52.0); Hemoglobin 15.8 g/dl (14.0-18.0); Immature Granulocytes # (auto) 0.03 K/uL (0.01-0.20); Immature Granulocytes % (auto) 0.4 %; Lymphocytes # (auto) 1.59 K/uL (1.20-3.40); Lymphocytes % (auto) 23.1 %; Mean Corpuscular Hemoglobin 33.8 pg (25.0-34.0); Mean Corpuscular Hgb Conc 34.1 g/dL (32.0-36.0); Mean Corpuscular Volume 99.1 fL (80.0-100.0); Mean Platelet Volume 11.6 fL (9.4-12.4); Monocytes % (auto) 8.7 %; Neutrophils # (auto) 4.32 K/uL (1.40-6.50); Platelet Count 200 K/uL (130-400); RDW Coefficient of Variation 13.5 % (11.5-14.5); Red Blood Count 4.67 M/uL (4.70-6.10); White Blood Count 6.87 K/ul (4.8-10.8)
[2024-02-12 15:17] LABS: Albumin Globulin Ratio 1.4 (0.9-2); Albumin Level 4.5 gm/dl (3.4-5.0); BUN Creatinine Ratio 17.3 (10-20); Bilirubin,Total 0.8 mg/dl (0.2-1.0); Calcium 10.1 mg/dl (8.6-10.3); Creatinine Clr Calc Pharmacy 45.6 ml/min; Globulin 3.2 gm/dl (2.5-4.0); Potassium 4.2 mmol/L (3.5-5.1); Total Protein 7.7 gm/dl (6.0-8.3)
[2024-02-12] MEDS: OPTIRAY 320 100ml IV ONE (15:39)
--- NOTE | 2024-02-12 16:22 | CT Scan Report ---
CT abd pelvis IV con only CLINICAL HISTORY: LEFT GROIN PAIN, KNOWN HERNIA, GETTING WORSE TECHNIQUE: Helical axial images of the abdomen and pelvis were obtained and displayed. Automated dose lowering techniques and/or adjustment according to patient size were utilized for this exam. This e xam was performed with intravenous contrast. CT DOSE: 1252.21 mGy.cm COMPARISON: Comparison is made to CT abdomen pelvis 11/28/2020 FINDINGS: Lower chest: Bibasilar atelectasis versus scarring is seen. Liver: Unremarkable. No focal lesions are seen. Gallbladder and biliary tree: Cholelithiasis is seen without evidence of cholecystitis. No intra- or extrahepatic biliary ductal dilation. Pancreas: Fatty replacement of the pancreas is seen. Spleen: Unremarkable. Adrenals: Unremarkable. Kidneys and ureters: Multiple renal cysts with lobulations likely representing scars. Nonobstructive nephrolithiasis is seen. Bladder: Unremarkable. Reproductive organs: Unremarkable. Bowel: Diverticulosis is seen without evidence of diverticulitis. A large hiatal hernia is seen. Lymph nodes Retroperitoneal: Unremarkable. Pelvic: Unremarkable. Mesenteric: Unremarkable. Peritoneum: Normal. Vessels: Atherosclerotic calcifications are seen. Tortuous iliac vessels are seen. Infrarenal aortic aneurysm measures 35 mm. Abdominal wall: Postsurgical changes of hernia repair are seen. Laxity and a small ventral hernia con taining nondilated bowel remains. There is a left inguinal hernia containing fat and loops of bowel. Bones: Degenerative changes in the visualized spine. A nerve stimulator is noted. IMPRESSION: 1. There is a loop of large bowel in the left inguinal hernia. No wall thickening is seen to suggest ischemia. Correlation with physical exam for stability is recommended. 2. Cholelithiasis without cholecystitis. 3. Infrarenal aortic aneurysm. 4. Diverticulosis without diverticulitis. 5. Additional findings as above. ACT 112: Negative or not required by law. Electronically signed by: Rich Fernandez M.D. 02/12/2024 4:20 PM
--- NOTE | 2024-02-12 16:30 | Emergency Department Note ---
Impression & Plan Left inguinal hernia, Acute UTI (urinary tract infection) ED Provider Note ED Provider Note NAME: ADELAIDE ESQUIVEL AGE:83 SEX: Male : 1940 ARRIVES VIA: Private vehicle INFORMANT: Patient ED PROVIDER(s): Sara Sutton DO CHIEF COMPLAINT: Increased pain and a known left inguinal hernia HPI: This is an 83-year-old male presents to the emergency depeartment due to concern for worsening pain since Monday at a known and already present left inguinal hernia. Patient denies any heavy lifting or strenuous activity. He states that hernia has not changed in size but is more painful. He states no difficulty urinating or change in bowel movements. Patient does straight cath regularly each day. He denies fevers, chills, nausea or vomiting. He states pain is improved laying flat, worse with sitting up and standing. He states he did talk to his PCP last week about this and appointment was made to follow-up with general surgery however he has not been seen by them yet. PAST MEDICAL HISTORY:See Below PAST SURGICAL HISTORY:See Below FAMILY HISTORY:See Below SOCIAL HISTORY:See Below HOME MEDICATIONS:See Below ALLERGIES:See Below VITALS:See Below PHYSICAL EXAMINATION: GENERAL: alert, well appearing, well nourished, no distress, non-toxic EYE EXAM: normal conjunctiva, PERRL and EOM's grossly intact OROPHARYNX: no exudate, no erythema, lips, buccal mucosa, and tongue normal and mucous membranes are moist NECK: supple, no nuchal rigidity, no adenopathy, non-tender LUNGS: Clear to auscultation. Normal chest wall mechanics, no w/r/r HEART: no murmurs, S1 normal and S2 normal ABDOMEN: abdomen soft, non-tender, normo-active bowel sounds, no masses, no rebound or guarding. Left inguinal hernia noted, no overlying erythema, markedly tender with any palpation, unable to reduce BACK: Back is symmetrical on inspection and there is no deformity, no midline tenderness, no CVA tenderness. SKIN: no rashes, petechiae, orbruising UPPER EXTREMITIES: upper extremities are grossly normal. FROM, nml pulses b/l. LOWER EXTREMITIES: No pitting edema. FROM, nml pulses b/l. NEURO EXAM: Normal sensorium, cranial nerves II-XII grossly intact, normal speech, no facial droop,nogross weakness of arms, no gross weakness of legs. Gross sensation intact. No ataxia. Vital Signs: reviewed and remarkable Differential Diagnosis: increased size of hernia, incarcerated hernia, bowel obstruction, volvulus, mass, uti, lymphadenopathy, as well as others were considered MEDICAL DECISION MAKING: This is an 83 yo male who presents to the ER with concern for worsening pain at a site of his left inguinal hernia. Hernia unable to be reduced at bedside during the exam. Labs drawn and sent, IV established, EKG performed and interpreted at bedside, and patient placed on telemetry. I did contact the general surgeon information assurance analyst to discuss the case and she was able to review the CT additionally. She recommended further techniques to try and reduce the hernia. Patient made trendelenburg, ice pack applied, patient given IV tylenol and ativan for his anxiety. He initially refused any IV narcotics due to prior rxn to morphine. Hernia smaller with these techniques but he still c/o increased pain. Labs reassuring. Urine found to have infection and he was started on IV antibiotics after review of cultures. No evidence on CT of bowel obstruction or ischemia. Gen surg TY did come evaluate the patient at bedside additionally. Case discussed with the hospitalist for additional evaluation and mgmt. Consultation(s): 1944: Patient seen at bedside by Patrick Camilo PA-C, with general surgery. 2009: Discussed with Dr. Fabian, [facility] hospitalist team for additional evaluation and management. ER Treatment Provided: See below Diagnostics Interpreted By Me: -ECG: Normal sinus at 62, first-degree axis, normal intervals, PVC noted, no acute ST/T wave changes -Cardiac Monitoring: An order was placed for continuous cardiac monitoring. The monitor shows a rate of 58 with rhythm. -Laboratory studies: As stated above and show below. -Imaging studies: ct a/p - no sbo Triage Nursing Note Reviewed Prior/Outside Records Reviewed Past Med/Surg History Problem List (Updated 02/12/24 @ 23:22 by Background Daemon) Acute UTI (urinary tract infection) (Acute) Left inguinal hernia (Acute) Hypotension Acute UTI (urinary tract infection) (Acute) Generalized weakness (Acute) Nausea & vomiting Urinary retention Benign prostatic hyperplasia with urinary obstruction (Acute) Atrial fibrillation with RVR (Acute) Weakness (Acute) Elevated troponin (Acute) Infection due to human metapneumovirus (hMPV) (Acute) BOY (acute kidney injury) (Acute) Atrial fibrillation (Acute) Pneumonia (Acute) Chronic UTI Gout CKD (chronic kidney disease), stage III Aortic insufficiency severe per cardio records Hyperlipidemia Hypertension (Acute) Hypothyroidism Carotid artery disease Bilateral ICAs 50-69% per 08/2019 carotid duplex CAD (coronary artery disease) s/p CABG x4 (2007) Repeat cath in 2010 showed occlusion of the vein graft to obtuse marginal per cardio records Atrial fibrillation (Acute) 06/03/22- pt currently on Eliquis Patient was previously anticoagulated with Eliquis. This was since discontinued by cardiology 04/2019 d/t no a. fib noted on Holter monitor/no known recurrence. Patient on ASA and beta viv. Medical History Abdominal aortic ectasia Per aortic duplex 10/10/19= There is evidence of a 3.5 cm x 3.5 cm abdominal aortic aneurysm. Color Doppler imaging demonstrates flow consistent with a patent lumen at and distal to the aortic aneurysm. Esophageal cancer Around 2006 or 2008- s/p esophagectomy- no chemo or XRT Hx of myocardial infarction 2007 BPH (benign prostatic hyperplasia) GERD (gastroesophageal reflux disease) Well controlled and stable Hearing deficit Sleep apnea can no longer tolerate device Surgical History History of cardiac cath X 1 SINCE 2007-NO STENTS PLACED-F/U DR JOSE LUIS BENITEZ last visit 03/2022 History of left cataract extraction 10/22/2019 History of right cataract surgery 10/08/2019. 2mg versed. History of colonoscopy History of esophagogastroduodenoscopy (EGD) Hx of heart bypass surgery 4 vessels - 2007- done in [place], [place] Hx of transurethral resection of prostate x3 History of appendectomy Hx of esophagectomy d/t esophageal cancer (~2006) Family History Father Family history of diabetes mellitus Other No family history of adverse response to anesthesia Social History Smoking Status: Former smoker Tobacco Type: Cigarettes Cigarettes Per Day: QUIT ~40 YRS AGO; Smoking End Date: 35 years ago; Second Hand Exposure: No; Do You Dip or Chew Tobacco: No; Hx Alcohol Use: Yes Alcohol type: wine Hx Substance Use: No Preferred Language: Northern Irish Communication Ability: Effective Production Broacher Required: No Beliefs That Will Affect Care: None Current Living Situation: Spouse Current Living Situation Comment: house current occupation: Retired Other Information That Helps Us Care for You: No Feels Safe at Home: Yes Safety Concerns: Feels Safe At This Time Assistive Devices: Glasses, Hearing Aid - Bilateral and Other Assistive Devices Comment: partial lower dentures Allergies Allergies Allergy/AdvReac Type Severity Reaction Status Date / Time ragweed pollen Allergy Intermediate Sneezing Verified 09/06/23 16:01 animal dander Allergy Mild itchy Verified 09/06/23 16:01 house dust Allergy Mild Sneezing Verified 09/06/23 16:01 morphine Allergy Mild ITCHING, Verified 09/06/23 16:01 severe N/V pollen extracts Allergy Mild Sneezing Verified 09/06/23 16:01 losartan AdvReac hyperkalemi Verified 09/06/23 16:01 a Home Meds Home Medications Medication Instructions Recorded Confirmed allopurinol 100 mg tablet 100 mg PO BID 02/12/24 02/12/24 amoxicillin 500 mg capsule 2,000 mg PO UD 02/12/24 02/12/24 apixaban 2.5 mg tablet (Eliquis) 2.5 mg PO BID 02/12/24 02/12/24 aspirin 81 mg tablet,delayed 81 mg PO DAILY 02/12/24 02/12/24 release atorvastatin 20 mg tablet 20 mg PO DAILY 02/12/24 02/12/24 carvedilol 12.5 mg tablet 12.5 mg PO BID 02/12/24 02/12/24 levothyroxine 150 mcg tablet 150 mcg PO DAILY 02/12/24 02/12/24 omeprazole 40 mg capsule,delayed 40 mg PO DAILY 02/12/24 02/12/24 release Results & Data (ED) Vital Signs Vital Signs - 24 hr 02/12/24 14:25 02/12/24 15:21 02/12/24 15:46 Temperature 36.8 C Temperature Source Temporal Artery Scan Pulse Rate 66 54 L Pulse Rate [Apical] 55 L Respiratory Rate 20 18 Respiratory Effort / Characteristics Non-Labored Spontaneous Respiratory Depth Normal Blood Pressure 158/91 H Blood Pressure [Left Arm] 145/102 H Blood Pressure Mean 113 Blood Pressure Mean [Left Arm] 116 Pulse Oximetry 97 98 Oxygen Delivery Method Room Air Room Air Sepsis Recent Fever Within 48 Hours No Sepsis New/Unexplained Change in Mental Status No Sepsis Action Taken by Nursing No Action Required 02/12/24 17:49 02/12/24 19:00 02/12/24 19:38 Temperature Temperature Source Pulse Rate 54 L 53 L Pulse Rate [Apical] 50 L Respiratory Rate 14 27 H Respiratory Effort / Characteristics Respiratory Depth Blood Pressure 146/90 H Blood Pressure [Left Arm] 143/83 H Blood Pressure Mean 99 Blood Pressure Mean [Left Arm] 103 Pulse Oximetry 97 98 Oxygen Delivery Method Room Air Sepsis Recent Fever Within 48 Hours Sepsis New/Unexplained Change in Mental Status Sepsis Action Taken by Nursing 02/12/24 21:01 02/12/24 22:00 Temperature Temperature Source Pulse Rate 52 L 77 Pulse Rate [Apical] Respiratory Rate 13 20 Respiratory Effort / Characteristics Respiratory Depth Blood Pressure 105/55 L Blood Pressure [Left Arm] Blood Pressure Mean 69 Blood Pressure Mean [Left Arm] Pulse Oximetry Oxygen Delivery Method Sepsis Recent Fever Within 48 Hours Sepsis New/Unexplained Change in Mental Status Sepsis Action Taken by Nursing Laboratory Data 02/13/24 06:23 02/13/24 06:23 Lab Results 02/12/24 02/12/24 02/12/24 Range/Units 14:46 16:47 17:24 WBC 6.87 (4.8-10.8) K/ul RBC 4.67 L (4.70-6.10) M/uL Hgb 15.8 (14.0-18.0) g/dl Hct 46.3 (42.0-52.0) % MCV 99.1 (80.0-100.0) fL MCH 33.8 (25.0-34.0) pg MCHC 34.1 (32.0-36.0) g/dL RDW Std Deviation 49.0 H (36.4-46.3) fL RDW Coeff of Daniela 13.5 (11.5-14.5) % Plt Count 200 (130-400) K/uL MPV 11.6 (9.4-12.4) fL Immature Gran % (Auto) 0.4 % Neut % (Auto) 63.0 % Lymph % (Auto) 23.1 % Stone % (Auto) 8.7 % Eos % (Auto) 3.3 % Baso % (Auto) 1.5 % Neut # (Auto) 4.32 (1.40-6.50) K/uL Lymph # (Auto) 1.59 (1.20-3.40) K/uL Stone # (Auto) 0.60 H (0.11-0.59) K/uL Eos # (Auto) 0.23 (0.00-0.50) K/uL Baso # (Auto) 0.10 (0.00-0.20) K/uL Immature Gran # (Auto) 0.03 (0.01-0.20) K/uL Sodium 137 (136-145) mmol/L Potassium 4.2 (3.5-5.1) mmol/L Chloride 102 (98-107) mmol/L Carbon Dioxide 28 (21-32) mmol/L Anion Gap 7 (3-11) BUN 23 (6-23) mg/dl Creatinine 1.33 (0.6-1.4) mg/dl Est Cr Clr Drug Dosing 45.6 ml/min eGFR 53.37 BUN/Creatinine Ratio 17.3 (10-20) Glucose 106 H (70-99(Fasting)) mg/dl Lactate 1.1 (0.4-2.0) mmol/L Calcium 10.1 (8.6-10.3) mg/dl Total Bilirubin 0.8 (0.2-1.0) mg/dl AST 25 (13-39) U/L ALT 15 (7-52) U/L Alkaline Phosphatase 59 (34-104) U/L Total Protein 7.7 (6.0-8.3) gm/dl Albumin 4.5 (3.4-5.0) gm/dl Globulin 3.2 (2.5-4.0) gm/dl Albumin/Globulin Ratio 1.4 (0.9-2) Urine Color Yellow Urine Appearance Cloudy A (Clear) Urine pH 6.5 (4.5-7.5) Ur Specific [place] 1.014 (1.000-1.030) Urine Protein 1+ H (Negative) Urine Glucose (UA) Negative (Negative) Urine Ketones Negative (Negative) Urine Blood Trace H (Negative) Urine Nitrite Negative (Negative) Urine Bilirubin Negative (Negative) Urine Urobilinogen Negative (Negative) Ur Leukocyte Esterase 3+ H (Negative) Urine WBC (Auto) >50 H (0-5) /hpf Urine RBC (Auto) 3-5 H (0-2) /hpf U Hyaline Cast (Auto) 0-2 (0-2) /lpf U Epithel Cells (Auto) 0-2 (0-2) /hpf Urine Bacteria (Auto) 4+ H (None Seen) Urine Sperm Present A (None Prsent) Administered Medications Allopurinol (Allopurinol 100 Mg Tab) 100 mg PO BID [facility] Stop: 03/14/24 08:59 Last Admin: 02/13/24 08:14 Dose: 100 mg Documented By: TAWANNAS Aspirin (Aspirin 81 Mg Ectab) 81 mg PO DAILY [facility] Stop: 03/14/24 08:59 Last Admin: 02/13/24 08:14 Dose: 81 mg Documented By: TAWANNAS Atorvastatin Calcium (Atorvastatin 20 Mg Tab) 20 mg PO DAILY [facility] Stop: 03/14/24 08:59 Last Admin: 02/13/24 08:14 Dose: 20 mg Documented By: YOSI Carvedilol (Carvedilol 12.5 Mg Tab) 12.5 mg PO BID [facility] Stop: 03/14/24 08:59 Last Admin: 02/13/24 07:57 Dose: Not Given Documented By: YOSI Heparin Sodium/Dextrose (Heparin Sodium/Dextrose) 25,000 units in 500 mls @ 19 mls/hr IV .Q24H [facility]; Protocol Stop: 02/14/24 23:59 Last Admin: 02/13/24 12:30 Dose: 950 units/hr, 19 mls/hr Documented By: YOSI Co-signed By: DAA Levothyroxine Sodium (Levothyroxine Sodium 150 Mcg Tablet) 150 mcg PO DAILYBB [facility] Stop: 03/14/24 06:29 Last Admin: 02/13/24 05:35 Dose: 150 mcg Documented By: DM Ondansetron HCl (Ondansetron Inj 2 Mg/Ml 2 Ml Vial) 4 mg IV Q6H PRN PRN Reason: Nausea And Vomiting Stop: 03/14/24 10:48 Last Admin: 02/13/24 11:13 Dose: 4 mg Documented By: YOSI Pantoprazole Sodium (Pantoprazole 40 Mg Tab) 40 mg PO DAILY [facility] Stop: 03/14/24 08:59 Last Admin: 02/13/24 08:14 Dose: 40 mg Documented By: YOSI Discontinued Medications Fentanyl Citrate (Fentanyl Citrate Pf 100 Mcg/2 Ml Vial) 50 mcg IV Q15M PRN PRN Reason: Pain Stop: 02/26/24 20:04 Last Admin: 02/12/24 20:15 Dose: 50 mcg Documented By: ALISIA Acetaminophen (Ofirmev) 1,000 mg in 100 mls @ 400 mls/hr IV NOW STA Stop: 02/12/24 16:42 Last Infusion: 02/12/24 17:50 Dose: Infused Documented By: Admin: 02/12/24 16:45 Dose: 400 mls/hr Documented By: ALISIA Ceftriaxone Sodium (Rocephin) 2,000 mg in 50 mls @ 100 mls/hr IV NOW STA Stop: 02/12/24 17:36 Last Infusion: 02/12/24 17:50 Dose: Infused Documented By: Admin: 02/12/24 17:17 Dose: 100 mls/hr Documented By: HALEY Dextrose/Sodium Chloride (D5w And Nss) 1,000 mls @ 100 mls/hr IV .Q10H [facility]IRIAM Stop: 02/13/24 23:27 Last Admin: 02/13/24 09:09 Dose: 100 mls/hr Documented By: Infusion: 02/13/24 09:08 Dose: Infused Documented By: Admin: 02/12/24 23:42 Dose: 100 mls/hr Documented By: BELÉN Ioversol (Optiray 320 100ml) 94 ml IV ONCE ONE Stop: 02/12/24 15:40 Last Admin: 02/12/24 15:39 Dose: 94 ml Documented By: ERMA Lorazepam (Lorazepam 1 Mg/1 Ml Syr Ed Inj Use) 0.25 mg IV ONE STA Stop: 02/12/24 18:42 Last Admin: 02/12/24 18:48 Dose: 0.25 mg Documented By: ALISIA Ondansetron HCl (Ondansetron Inj 2 Mg/Ml 2 Ml Vial) Confirm Administered Dose 4 mg .ROUTE .STK-MED ONE Stop: 02/12/24 20:11 Last Admin: 02/12/24 20:13 Dose: 4 mg Documented By: ALISIA Imaging Data Radiologist's Impression: Abdomen/Pelvis CT 02/12/24 14:27 CT abd pelvis IV con only CLINICAL HISTORY: LEFT GROIN PAIN, KNOWN HERNIA, GETTING WORSE TECHNIQUE: Helical axial images of the abdomen and pelvis were obtained and displayed. Automated dose lowering techniques and/or adjustment according to patient size were utilized for this exam. This exam was performed with intravenous contrast. CT DOSE: 1252.21 mGy.cm COMPARISON: Comparison is made to CT abdomen pelvis 11/28/2020 FINDINGS: Lower chest: Bibasilar atelectasis versus scarring is seen. Liver: Unremarkable. No focal lesions are seen. Gallbladder and biliary tree: Cholelithiasis is seen without evidence of cholecystitis. No intra- or extrahepatic biliary ductal dilation. Pancreas: Fatty replacement of the pancreas is seen. Spleen: Unremarkable. Adrenals: Unremarkable. Kidneys and ureters: Multiple renal cysts with lobulations likely representing scars. Nonobstructive nephrolithiasis is seen. Bladder: Unremarkable. Reproductive organs: Unremarkable. Bowel: Diverticulosis is seen without evidence of diverticulitis. A large hiatal hernia is seen. Lymph nodes Retroperitoneal: Unremarkable. Pelvic: Unremarkable. Mesenteric: Unremarkable. Peritoneum: Normal. Vessels: Atherosclerotic calcifications are seen. Tortuous iliac vessels are seen. Infrarenal aortic aneurysm measures 35 mm. Abdominal wall: Postsurgical changes of hernia repair are seen. Laxity and a small ventral hernia containing nondilated bowel remains. There is a left inguinal hernia containing fat and loops of bowel. Bones: Degenerative changes in the visualized spine. A nerve stimulator is noted. IMPRESSION: 1. There is a loop of large bowel in the left inguinal hernia. No wall thickening is seen to suggest ischemia. Correlation with physical exam for stability is recommended. 2. Cholelithiasis without cholecystitis. 3. Infrarenal aortic aneurysm. 4. Diverticulosis without diverticulitis. 5. Additional findings as above. ACT 112: Negative or not required by law. Electronically signed by: Rich Fernandez M.D. 02/12/2024 4:20 PM Discharge Plan Visit Data Chief Complaint: Abdominal Pain Stated Complaint: HERNIA ON L LOWER ABD, THINKS IT'S GETTING WORSE ED Provider: Sara Sutton Discharge Problem: Left inguinal hernia, Acute UTI (urinary tract infection) Patient Disposition: Admitted As Inpatient Discharge Instructions Interventions: ED Discharge Assessment Last Done: 02/12/24 22:56
[2024-02-12] MEDS: ACETAMINOPHEN 1,000 MG/100 ML VIAL IV STA (16:45)
[2024-02-12 17:03] LABS: Appearance Urine Cloudy (Clear); Bacteria Urine Automated 4+ (None Seen); Bilirubin Urine Negative (Negative); Blood Urine Trace (Negative); Cast Urine Automated 0-2 /lpf (0-2); Color Urine Yellow; Epithelial Cell Urine Auto 0-2 /hpf (0-2); Glucose Urine UA Negative (Negative); Ketones Urine Negative (Negative); Leukocyte Esterase Urine 3+ (Negative); Nitrite Urine Negative (Negative); Protein Urine 1+ (Negative); Specific Gravity Urine 1.014 (1.000-1.030); Sperm Urine Present (None Prsent); Urobilinogen Urine Negative (Negative); WBC Urine Automated >50 /hpf (0-5); pH Urine 6.5 (4.5-7.5)
[2024-02-12] MEDS: cefTRIAXone SODIUM 2,000 MG/50 ML BAG IV STA (17:17)
[2024-02-12] MEDS: LORazepam 1 MG/1 ML SYR ED Inj Use IV STA (18:48)
[2024-02-12] MEDS: ONDANSETRON INJ 2 MG/ML 2 ML VIAL ONE (20:13)
[2024-02-12] MEDS: fentaNYL citrate PF 100 MCG/2 ML VIAL IV PRN (20:15)
--- NOTE | 2024-02-12 20:47 | Surgery Consultation ---
<Statement entered by Nieves Espinal, - 02/13/24 12:29> Patient would prefer to have surgery this admission and did have an episode of vomiting. Denies abdominal pain, still with right groin tenderness. Will discuss this case with urology for infection considerations/recommendations based on his chronic urological issues which may affect the surgical approach In addition, he is on Eliquis, last dose yesterday am. In general we are targeting possible surgery when the Eliquis has been able to glaser off on . I have explained these details of our above considerations to the patient with his at bedside. We will follow up with final plans in the am. Date of Consultation February 12, 2024 Assessment & Plan (1) Left inguinal hernia: I discussed with the treating emergency room physician the patient is being admitted on the hospitalist service. From a surgical perspective we recommend the following: Appears of the patient has a urinary tract infection and he has been given antibiotics in form of Rocephin. Appropriate cultures have been sent and should be followed and antibiotics tailored based on the results and this will ultimately be deferred to the primary service Procedure: After the patient was medicated with 50 mcg of fentanyl as well as 4 mg of Zofran the patient was placed in Trendelenburg with his knee slightly bent. I then attempted to manually reduce the hernia. At the time this was performed patient had considerable tenderness in his left groin. I did not appreciate any large masses or herniations. Patient tolerated this well. By CT scan the patient did have a left inguinal hernia. Prior to my arrival the treating emergency room physician attempted to reduce it and I again attempted following this. There is possible that the hernia may have been partially reduced by the emergency room doctor or by placing the patient in Trendelenburg. The patient does not have any clinical signs of obstruction or bowel ischemia I did discuss with the patient that he may need to consider having his hernia surgically corrected at some point but we would prefer to hold off on doing this at this time due to concern for urinary tract infection. I did inform him that is possible that mesh may need to be utilized in his hernia repair and we would prefer not to do that in the setting of urinary tract infection or at least until he has been treated adequately. In addition I told the patient would be preferable for him to be off his Eliquis for several days prior to undergoing hernia repair. If clinically feasible would recommend holding the patient's Eliquis At the time of my interview the patient was nontoxic-appearing. Additional recommendations with forthcoming based on his clinical course as unfolds (2) Acute UTI (urinary tract infection): History of Present Illness Reason for Consultation: Left inguinal hernia History of Present Illness This is an 83-year-old male who presented the emergency department secondary to left groin pain. Patient says that he has been having left groin pain for approximately 1 month but over the past 4 days it is gotten worse particular with walking. He has noted a bulge about the size of a softball in his left groin. He specifically denies any fevers, shakes, or chills. He denies any nausea or vomiting. He does report having normal bowel movement this morning. Patient says that he has had previous abdominal surgery in the form of an umbilical hernia and he believes that mesh was utilized in this procedure. The patient does have a significant cardiovascular history. In 2007 the patient did undergo coronary bypass grafting x 4. He also underwent an aortic valve replacement in 2022 at which time he also underwent a left atrial appendage ligation and a maze procedure. Since the patient's most recent heart surgery he denies any chest pain or shortness of breath and notes that he is able to walk daily. His most recent echocardiogram available for my review was from February 2023. This showed the patient had a 60% ejection fraction with mild mitral regurgitation. The patient does note that he takes Eliquis for his history of atrial fibrillation with his most recent dose of this medication being the morning of 02/04/2024. Since arrival to the hospital the patient has had labs and imaging which I independent reviewed. Patient had a CT scan of the abdomen pelvis. Patient was noted to have a left inguinal hernia containing a loop of colon. There is no wall thickening suggestive of ischemia. Labs included CBC with a white blood cell count, hemoglobin, hematocrit, and platelet count were normal. Chemistry profile showed sodium and potassium as well as the BUN and creatinine were normal. His lactic acid level is nonelevated at 1.1. There is no elevation of his LFTs. Urinalysis showed cloudy urine which had 3+ leukocyte Estrace and greater than 50 white blood cells per high-power field. There was 4+ bacteria noted on the study. The specimen was negative for nitrites. At the time of my interview he was resting comfortably in bed he was in no distress. Allergies Allergy/AdvReac Type Severity Reaction Status Date / Time ragweed pollen Allergy Intermediate Sneezing Verified 09/06/23 16:01 animal dander Allergy Mild itchy Verified 09/06/23 16:01 house dust Allergy Mild Sneezing Verified 09/06/23 16:01 morphine Allergy Mild ITCHING, Verified 09/06/23 16:01 severe N/V pollen extracts Allergy Mild Sneezing Verified 09/06/23 16:01 losartan AdvReac hyperkalemi Verified 09/06/23 16:01 a Home Medications Medication Instructions Recorded Confirmed Type allopurinol 100 mg tablet 100 mg PO BID 07/30/18 01/06/24 History ascorbic acid (vitamin C) 1,000 mg 1,000 mg PO BID 07/30/18 01/06/24 History tablet (Vitamin C) aspirin 81 mg tablet,delayed 81 mg PO HS 07/30/18 01/06/24 History release ([place] Low Dose Aspirin) fish, borage, flaxseed oils-omega 1 cap PO BID 07/30/18 01/06/24 History 3,6,9 cb #1 400 mg-400 mg-400 mg cap ([place] 3-6-9 Complex) multivitamin 1 tab PO BID 07/30/18 01/06/24 History omeprazole 40 mg capsule,delayed 40 mg PO QAM 07/30/18 01/06/24 History release vitamin E 268 mg (400 unit) capsule 400 unit PO 2XWK 07/30/18 01/06/24 History acetaminophen 500 mg tablet 1,000 mg PO Q6H PRN Pain 09/19/19 01/06/24 History glucosamine sulfate 500 mg tablet PO BID 09/19/19 09/06/23 History (Glucosamine) nitroglycerin 0.4 mg sublingual 0.4 mg sublingual Q5M PRN Pain 10/09/19 01/06/24 History tablet atorvastatin 20 mg tablet 20 mg PO QAM 03/15/22 01/06/24 History cholestyramine-aspartame 4 gram 4 g PO QAM 06/03/22 01/06/24 History oral powder (Cholestyramine Light) coenzyme Q10 100 mg capsule 600 mg PO QAM 06/07/22 01/06/24 History (CoQ-10) levothyroxine 150 mcg tablet 150 mcg PO QAM 06/07/22 01/06/24 History prasterone (dhea) 50 mg capsule 50 mg PO QAM 06/07/22 01/06/24 History (DHEA) cholecalciferol (vitamin D3) 25 50 mcg PO BID 10/26/22 01/06/24 History mcg (1,000 unit) tablet (Vitamin D3) apixaban 2.5 mg tablet (Eliquis) 2.5 mg PO BID 03/02/23 01/06/24 History cranberry 500 mg capsule 420 mg PO QAM 03/21/23 01/06/24 History carvedilol 12.5 mg tablet 12.5 mg PO BID 01/06/24 01/06/24 History nitrofurantoin macrocrystal 50 mg 50 mg PO HS #90 caps 02/01/24 Rx capsule Patient History Medical History Abdominal aortic ectasia Per aortic duplex 10/10/19= There is evidence of a 3.5 cm x 3.5 cm abdominal aortic aneurysm. Color Doppler imaging demonstrates flow consistent with a patent lumen at and distal to the aortic aneurysm. Esophageal cancer Around 2006 or 2008- s/p esophagectomy- no chemo or XRT Hx of myocardial infarction 2007 BPH (benign prostatic hyperplasia) GERD (gastroesophageal reflux disease) Well controlled and stable Hearing deficit Sleep apnea can no longer tolerate device Surgical History History of cardiac cath X 1 SINCE 2007-NO STENTS PLACED-F/U DR JOSE LUIS BENITEZ last visit 03/2022 History of left cataract extraction 10/22/2019 History of right cataract surgery 10/08/2019. 2mg versed. History of colonoscopy History of esophagogastroduodenoscopy (EGD) Hx of heart bypass surgery 4 vessels - 2008- done in [place], [place] Hx of transurethral resection of prostate x3 History of appendectomy Hx of esophagectomy d/t esophageal cancer (~2006) Family History Father Family history of diabetes mellitus Other No family history of adverse response to anesthesia Social History Smoking Status: Never smoker Cigarettes Per Day: QUIT ~40 YRS AGO; Second Hand Exposure: No; Do You Dip or Chew Tobacco: No; Hx Alcohol Use: No Hx Substance Use: No Preferred Language: Faroese Communication Ability: Effective 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 Beliefs That Will Affect Care: None Current Living Situation: Spouse Current Living Situation Comment: house current occupation: Retired Feels Safe at Home: Yes Assistive Devices: Walker Review of Systems Review of Systems: All systems reviewed & are unremarkable except as noted in HPI & below Physical Exam Constitutional: WD/WN, vitals as above Eyes: no conjunctival abnormality ENMT: Ears: no hearing impairment and no external ear abnormality Mouth: no oropharynx abnormality Neck: trachea midline Respiratory: normal respiratory effort; no respiratory distress and no labored breathing Cardiovascular: Rate/Rhythm: regular rate and regular rhythm Gastrointestinal (Abdomen): Abdomen is soft and nondistended. There are no signs of peritonitis. Patient did have pain with palpation in his left groin. I do not appreciate any masses or bulging. There is no overlying skin changes. Musculoskeletal: No calf tenderness Skin: no rashes Neurologic: moves all extremities Psychiatric: A+Ox3, euthymic affect Genitourinary: Patient's genitals were examined and I do not appreciate any scrotal swelling or masses or herniations in his scrotum. Results & Data Vital Signs (Past 12 Hours) Vital Signs Temp Pulse Pulse Resp BP BP Pulse Ox 02/12/24 19:38 53 L 02/12/24 17:49 50 L 14 143/83 H 97 02/12/24 15:46 54 L 02/12/24 15:21 55 L 18 145/102 H 98 02/12/24 14:25 36.8 C 66 20 158/91 H 97 O2 Del Method 02/12/24 19:38 02/12/24 17:49 Room Air 02/12/24 15:46 02/12/24 15:21 Room Air 02/12/24 14:25 Room Air PG Care Time/CCT Total # of Minutes Spent Total Time Spent with Patient: Total time spent is greater than 50% in coordination of care (as documented) at patient's floor/unit and/or counseling patient: Coding Level of Care Code 44333 INT INP/OBS CARE 3/75MIN Diagnoses Left inguinal hernia K40.90 Acute UTI (urinary tract infection) N39.0
--- NOTE | 2024-02-12 22:31 | History & Physical Report ---
Date of Service February 12, 2024 Assessment & Plan (1) Left inguinal hernia: Plan: 83-year-old male with past medical history significant for dyslipidemia, prediabetes, hypothyroidism, mild obstructive sleep apnea, solitary lung nodule, history of CAD status post CABG, aortic root enlargement, bioprosthetic aortic valve replacement, paroxysmal atrial fibrillation, hypertension, asymptomatic bilateral carotid artery stenosis, infrarenal abdominal aortic aneurysm, history of cardiomyopathy, Hastings's esophagus with high-grade dysplasia ,BPH, neurogenic bladder, CKD stage III, gout arthropathy, sensorineural hearing loss of both ears, adverse reaction to angiotensin II receptor presents with left abdominal pain and left inguinal hernia. Patient says had left inguinal hernia about softball size. Today it was hurting a lot which prompted him to come to ER. Denies any nausea or vomiting. Bowel movements are okay. No fevers. ER and surgery tried to reduce it. Patient states with lying down is okay but when he tried to get up and walk it is popping out. Denies any chest pain or shortness of breath. No headache. No runny nose or sore throat. Vision is okay. No cough. Appetite is okay. Ambulating okay. Hemodynamics are okay. Patient also found to have UTI. Left inguinal hernia Comes with abdominal pain CT scan showing large loop of bowel in the left inguinal hernia. No wall thickening to suggest ischemia ER and surgery try to reduce it Surgery want to wait until his UTI is under control and also to hold Eliquis for few days before the procedure Pain control N.p.o. for now IV fluids Surgery consult Acute UTI Empiric Rocephin Will follow cultures Prediabetes Will follow HbA1c levels History of CAD status post CABG On aspirin, statin and Coreg History of severe aortic regurgitation status post bioprosthetic aortic valve replacement with bilateral maze and ISAÍAS ligation Moderate aortic root enlargement Abdominal aortic aneurysm 3.5 to 3.5 cm in January 2023 Follow-up Bilateral moderate carotid disease On aspirin and statin Paroxysmal atrial fibrillation On Coreg Holding Eliquis for now If needed will place on IV heparin Hastings's esophagus with high-grade dysplasia Status post 6 history of esophagectomy with gastric pull-up in early On omeprazole Hypothyroidism On Synthyroid Hypertension On Coreg We will monitor Gout On allopurinol Neurogenic bladder BPH Straight cath at home? nicolas ordered. CKD stage III Baseline creatinine 1.3-1.4 Presented with creatinine 1.3 We will follow labs DVT prophylaxis Holding Nicole SCDs for now Disposition Med/telemetry Full code. History of Present Illness Chief Complaint: Abdominal pain and left inguinal hernia Primary Care Provider: Gala Pablo MD 83-year-old male with past medical history significant for dyslipidemia, prediabetes, hypothyroidism, mild obstructive sleep apnea, solitary lung nodule, history of CAD status post CABG, aortic root enlargement, bioprosthetic aortic valve replacement, paroxysmal atrial fibrillation, hypertension, asymptomatic bilateral carotid artery stenosis, infrarenal abdominal aortic aneurysm, history of cardiomyopathy, Hastings's esophagus with high-grade dysplasia ,BPH, neurogenic bladder, CKD stage III, gout arthropathy, sensorineural hearing loss of both ears, adverse reaction to angiotensin II receptor presents with left abdominal pain and left inguinal hernia. Patient says had left inguinal hernia about softball size. Today it was hurting a lot which prompted him to come to ER. Denies any nausea or vomiting. Bowel movements are okay. No fevers. ER and surgery tried to reduce it. Patient states with lying down is okay but when he tried to get up and walk it is popping out. Denies any chest pain or shortness of breath. No headache. No runny nose or sore throat. Vision is okay. No cough. Appetite is okay. Ambulating okay. Hemodynamics are okay. Patient also found to have UTI. Past medical history. As mentioned above Past surgical history. CABG. Carpal tunnel surgery. Colonoscopy. EGD. EGD with biopsy. Abdominal hernia repair with mesh. Sacral implant neuro electrodes. Esophagectomy 6 inches of esophagus removed in 2005. TURP. Bilateral cataracts. Social history. . Quit smoking 1982. Smoked 1 pack a day for 20 years. No alcohol use. No drug use. Family history. Maternal grandfather had cancer of liver. Father had diabetes. Hemochromatosis. Stroke. Mother had stroke. Allergies Allergy/AdvReac Type Severity Reaction Status Date / Time ragweed pollen Allergy Intermediate Sneezing Verified 09/06/23 16:01 animal dander Allergy Mild itchy Verified 09/06/23 16:01 house dust Allergy Mild Sneezing Verified 09/06/23 16:01 morphine Allergy Mild ITCHING, Verified 09/06/23 16:01 severe N/V pollen extracts Allergy Mild Sneezing Verified 09/06/23 16:01 losartan AdvReac hyperkalemi Verified 09/06/23 16:01 a Home Medications Medication Instructions Recorded Confirmed Type allopurinol 100 mg tablet 100 mg PO BID 02/12/24 02/12/24 History amoxicillin 500 mg capsule 2,000 mg PO UD 02/12/24 02/12/24 History apixaban 2.5 mg tablet (Eliquis) 2.5 mg PO BID 02/12/24 02/12/24 History aspirin 81 mg tablet,delayed 81 mg PO DAILY 02/12/24 02/12/24 History release atorvastatin 20 mg tablet 20 mg PO DAILY 02/12/24 02/12/24 History carvedilol 12.5 mg tablet 12.5 mg PO BID 02/12/24 02/12/24 History levothyroxine 150 mcg tablet 150 mcg PO DAILY 02/12/24 02/12/24 History omeprazole 40 mg capsule,delayed 40 mg PO DAILY 02/12/24 02/12/24 History release Past Med/Surg History Problem List (Updated 02/12/24 @ 23:22 by Shilpa Weiss) Acute UTI (urinary tract infection) (Acute) Left inguinal hernia (Acute) Hypotension Acute UTI (urinary tract infection) (Acute) Generalized weakness (Acute) Nausea & vomiting Urinary retention Benign prostatic hyperplasia with urinary obstruction (Acute) Atrial fibrillation with RVR (Acute) Weakness (Acute) Elevated troponin (Acute) Infection due to human metapneumovirus (hMPV) (Acute) BOY (acute kidney injury) (Acute) Atrial fibrillation (Acute) Pneumonia (Acute) Chronic UTI Gout CKD (chronic kidney disease), stage III Aortic insufficiency severe per cardio records Hyperlipidemia Hypertension (Acute) Hypothyroidism Carotid artery disease Bilateral ICAs 50-69% per 08/2019 carotid duplex CAD (coronary artery disease) s/p CABG x4 (2007) Repeat cath in 2010 showed occlusion of the vein graft to obtuse marginal per cardio records Atrial fibrillation (Acute) 06/03/22- pt currently on Eliquis Patient was previously anticoagulated with Eliquis. This was since discontinued by cardiology 04/2019 d/t no a. fib noted on Holter monitor/no known recurrence. Patient on ASA and beta viv. Medical History Abdominal aortic ectasia Per aortic duplex 10/10/19= There is evidence of a 3.5 cm x 3.5 cm abdominal aortic aneurysm. Color Doppler imaging demonstrates flow consistent with a patent lumen at and distal to the aortic aneurysm. Esophageal cancer Around 2006 or 2008- s/p esophagectomy- no chemo or XRT Hx of myocardial infarction 2007 BPH (benign prostatic hyperplasia) GERD (gastroesophageal reflux disease) Well controlled and stable Hearing deficit Sleep apnea can no longer tolerate device Surgical History History of cardiac cath X 1 SINCE 2007-NO STENTS PLACED-F/U DR JOSE LUIS BENITEZ last visit 03/2022 History of left cataract extraction 10/22/2019 History of right cataract surgery 10/08/2019. 2mg versed. History of colonoscopy History of esophagogastroduodenoscopy (EGD) Hx of heart bypass surgery 4 vessels - 2007- done in [place], [place] Hx of transurethral resection of prostate x3 History of appendectomy Hx of esophagectomy d/t esophageal cancer (~2006) Family History Father Family history of diabetes mellitus Other No family history of adverse response to anesthesia Social History Smoking Status: Former smoker Tobacco Type: Cigarettes Cigarettes Per Day: QUIT ~40 YRS AGO; Smoking End Date: 35 years ago; Second Hand Exposure: No; Do You Dip or Chew Tobacco: No; Hx Alcohol Use: Yes Alcohol type: wine Hx Substance Use: No Preferred Language: [place] Islander Communication Ability: Effective Curb And Gutter Laborer Required: No Beliefs That Will Affect Care: None Current Living Situation: Spouse Current Living Situation Comment: house current occupation: Retired Other Information That Helps Us Care for You: No Feels Safe at Home: Yes Safety Concerns: Feels Safe At This Time Assistive Devices: Glasses, Hearing Aid - Bilateral and Other Assistive Devices Comment: partial lower dentures Review of Systems Review of Systems: All systems reviewed & are unremarkable except as noted in HPI & below Physical Exam Physical Exam: General- Not in distress. Head- atraumatic Eyes- PERRL. ENT- oropharynx clear Neck- supple, no JVD. Lungs- clear to auscultation no wheezing or crackles. Heart- regular rate and rhythm; no murmur, no gallop. Abdomen- normal bowel sounds, soft, nontender, Left inguinal mass palpable. Extremities- no pretibial edema, no erythema seen Neuro- alert, oriented PERRL, no facial palsy; no dysarthria; moves extremities Results & Data Results & Data Vital Signs (Past 12 Hours) Vital Signs Temp Pulse Pulse Resp BP BP Pulse Ox 02/12/24 21:01 52 L 13 105/55 L 02/12/24 19:38 53 L 02/12/24 19:00 54 L 27 H 146/90 H 98 02/12/24 17:49 50 L 14 143/83 H 97 02/12/24 15:46 54 L 02/12/24 15:21 55 L 18 145/102 H 98 02/12/24 14:25 36.8 C 66 20 158/91 H 97 O2 Del Method 02/12/24 21:01 02/12/24 19:38 02/12/24 19:00 02/12/24 17:49 Room Air 02/12/24 15:46 02/12/24 15:21 Room Air 02/12/24 14:25 Room Air Diagnostic Findings Laboratory Results WBC 6.87 K/ul (4.8-10.8) 02/12/24 14:46 RBC 4.67 M/uL (4.70-6.10) L 02/12/24 14:46 Hgb 15.8 g/dl (14.0-18.0) 02/12/24 14:46 Hct 46.3 % (42.0-52.0) 02/12/24 14:46 MCV 99.1 fL (80.0-100.0) 02/12/24 14:46 MCH 33.8 pg (25.0-34.0) 02/12/24 14:46 MCHC 34.1 g/dL (32.0-36.0) 02/12/24 14:46 RDW Std Deviation 49.0 fL (36.4-46.3) H 02/12/24 14:46 RDW Coeff of Daniela 13.5 % (11.5-14.5) 02/12/24 14:46 Plt Count 200 K/uL (130-400) 02/12/24 14:46 MPV 11.6 fL (9.4-12.4) 02/12/24 14:46 Immature Gran % (Auto) 0.4 % 02/12/24 14:46 Neut % (Auto) 63.0 % 02/12/24 14:46 Lymph % (Auto) 23.1 % 02/12/24 14:46 Cottle % (Auto) 8.7 % 02/12/24 14:46 Eos % (Auto) 3.3 % 02/12/24 14:46 Baso % (Auto) 1.5 % 02/12/24 14:46 Neut # (Auto) 4.32 K/uL (1.40-6.50) 02/12/24 14:46 Lymph # (Auto) 1.59 K/uL (1.20-3.40) 02/12/24 14:46 Cottle # (Auto) 0.60 K/uL (0.11-0.59) H 02/12/24 14:46 Eos # (Auto) 0.23 K/uL (0.00-0.50) 02/12/24 14:46 Baso # (Auto) 0.10 K/uL (0.00-0.20) 02/12/24 14:46 Immature Gran # (Auto) 0.03 K/uL (0.01-0.20) 02/12/24 14:46 Sodium 137 mmol/L (136-145) 02/12/24 14:46 Potassium 4.2 mmol/L (3.5-5.1) 02/12/24 14:46 Chloride 102 mmol/L (98-107) 02/12/24 14:46 Carbon Dioxide 28 mmol/L (21-32) 02/12/24 14:46 Anion Gap 7 (3-11) 02/12/24 14:46 BUN 23 mg/dl (6-23) 02/12/24 14:46 Creatinine 1.33 mg/dl (0.6-1.4) 02/12/24 14:46 Est Cr Clr Drug Dosing 45.6 ml/min 02/12/24 14:46 eGFR 53.37 02/12/24 14:46 BUN/Creatinine Ratio 17.3 (10-20) 02/12/24 14:46 Glucose 106 mg/dl (70-99(Fasting)) H 02/12/24 14:46 Lactate 1.1 mmol/L (0.4-2.0) 02/12/24 17:24 Calcium 10.1 mg/dl (8.6-10.3) 02/12/24 14:46 Total Bilirubin 0.8 mg/dl (0.2-1.0) 02/12/24 14:46 AST 25 U/L (13-39) 02/12/24 14:46 ALT 15 U/L (7-52) 02/12/24 14:46 Alkaline Phosphatase 59 U/L (34-104) 02/12/24 14:46 Total Protein 7.7 gm/dl (6.0-8.3) 02/12/24 14:46 Albumin 4.5 gm/dl (3.4-5.0) 02/12/24 14:46 Globulin 3.2 gm/dl (2.5-4.0) 02/12/24 14:46 Albumin/Globulin Ratio 1.4 (0.9-2) 02/12/24 14:46 Urine Color Yellow 02/12/24 16:47 Urine Appearance Cloudy (Clear) A 02/12/24 16:47 Urine pH 6.5 (4.5-7.5) 02/12/24 16:47 Ur Specific Durbin 1.014 (1.000-1.030) 02/12/24 16:47 Urine Protein 1+ (Negative) H 02/12/24 16:47 Urine Glucose (UA) Negative (Negative) 02/12/24 16:47 Urine Ketones Negative (Negative) 02/12/24 16:47 Urine Blood Trace (Negative) H 02/12/24 16:47 Urine Nitrite Negative (Negative) 02/12/24 16:47 Urine Bilirubin Negative (Negative) 02/12/24 16:47 Urine Urobilinogen Negative (Negative) 02/12/24 16:47 Ur Leukocyte Esterase 3+ (Negative) H 02/12/24 16:47 Urine WBC (Auto) >50 /hpf (0-5) H 02/12/24 16:47 Urine RBC (Auto) 3-5 /hpf (0-2) H 02/12/24 16:47 U Hyaline Cast (Auto) 0-2 /lpf (0-2) 02/12/24 16:47 U Epithel Cells (Auto) 0-2 /hpf (0-2) 02/12/24 16:47 Urine Bacteria (Auto) 4+ (None Seen) H 02/12/24 16:47 Urine Sperm Present (None Prsent) A 02/12/24 16:47 Impressions Abdomen/Pelvis CT 02/12/24 14:27 CT abd pelvis IV con only CLINICAL HISTORY: LEFT GROIN PAIN, KNOWN HERNIA, GETTING WORSE TECHNIQUE: Helical axial images of the abdomen and pelvis were obtained and displayed. Automated dose lowering techniques and/or adjustment according to patient size were utilized for this exam. This exam was performed with intravenous contrast. CT DOSE: 1252.21 mGy.cm COMPARISON: Comparison is made to CT abdomen pelvis 11/28/2020 FINDINGS: Lower chest: Bibasilar atelectasis versus scarring is seen. Liver: Unremarkable. No focal lesions are seen. Gallbladder and biliary tree: Cholelithiasis is seen without evidence of cholecystitis. No intra- or extrahepatic biliary ductal dilation. Pancreas: Fatty replacement of the pancreas is seen. Spleen: Unremarkable. Adrenals: Unremarkable. Kidneys and ureters: Multiple renal cysts with lobulations likely representing scars. Nonobstructive nephrolithiasis is seen. Bladder: Unremarkable. Reproductive organs: Unremarkable. Bowel: Diverticulosis is seen without evidence of diverticulitis. A large hiatal hernia is seen. Lymph nodes Retroperitoneal: Unremarkable. Pelvic: Unremarkable. Mesenteric: Unremarkable. Peritoneum: Normal. Vessels: Atherosclerotic calcifications are seen. Tortuous iliac vessels are seen. Infrarenal aortic aneurysm measures 35 mm. Abdominal wall: Postsurgical changes of hernia repair are seen. Laxity and a small ventral hernia containing nondilated bowel remains. There is a left inguinal hernia containing fat and loops of bowel. Bones: Degenerative changes in the visualized spine. A nerve stimulator is noted. IMPRESSION: 1. There is a loop of large bowel in the left inguinal hernia. No wall thickening is seen to suggest ischemia. Correlation with physical exam for stability is recommended. 2. Cholelithiasis without cholecystitis. 3. Infrarenal aortic aneurysm. 4. Diverticulosis without diverticulitis. 5. Additional findings as above. ACT 112: Negative or not required by law. Electronically signed by: Rich Fernandez M.D. 02/12/2024 4:20 PM ECG Additional Comments: ECG. Sinus rhythm with occasional PVCs at rate of 62. Left ventricle hypertrophy. Nonspecific T wave abnormalities. QTc 450. Code Status & VTE Plan VTE Prophylaxis Plan VTE Prophylaxis will be ordered: Yes
--- OUTSIDE RECORDS SUMMARY | 2024-02-12 22:48 | External Medical Summary | Summary of Care ---
Author Name Unknown Organization [facility] Address [address] [place] [address] Phone [phone] Care Team Providers Care Wood Handler Name Role Phone Gala Pablo MD Primary Care Provider Reason for Visit * Reason Onset Date Comments Forms Request 02/09/2024 Encounter Details Date Type Department Care Team (Late st Contact Info) Description 02/09/2024 Telephone Family Practice [facility] [address] [place] [address] Gala Pablo MD [address] [place] [address] Forms Request Allergies Active Allergy Reactions Criticality Noted Date Comments Cat Dander 09/25/2014 Dog Dander 09/25/2014 Dust 09/23/2015 Pollen 09/25/2014 Losartan Other (Please comment) 03/02/2021 Hyperkalemia Morphine Nausea/vomiting Low 12/13/2017 Ragweed 09/25/2014 documented as of this encounter (statuses as of 02/09/2024) Medications Medication Sig Dispensed Refills Start Date End Date Status VITAMIN E 400 UNIT PO CAPS Take 1 Capsule by mouth. Wednesdays and Sundays Active ACETAMINOPHEN 500 MG PO TABS Two pills by mouth every 6 hours as needed for fever or pain 08/25/2011 Active GLUCOSAMINE CHONDROITIN COMPLX PO TABS Take 1 Tablet by mouth 2 times a day. 02/06/2012 Active Ascorbic Acid 1000 MG Oral Tablet Take 1 Tablet by mouth 2 times a day. 09/27/2016 Active Multiple Vitamin (MULTI VITAMIN) TABS Take 1 Tablet by mouth daily. Life extension 02/09/2017 Active aspirin enteric coated 81 MG TBEC Take 1 Tablet by mouth every evening. Active Burgin-3 Fatty Acids (ULTRA OMEGA 3) 952 MG CAPSIndications:Dys lipidemia, goal LDL below 100 One tab twice daily 180 Cap 1 04/19/2018 Active Additional Information Patient taking differently: 2 Capsule Oral BID(Non-Specified), (No instructions reported), Reported on 05/15/2023 Coenzyme Q10 100 MG Oral Tablet Take 1 Tablet by mouth in the morning. Active DHEA 50 MG Oral Tablet Take 50 mg by mouth daily. Active Cranberry 500 MG Oral Capsule Take 1 Capsule by mouth in the morning. 04/19/2022 Active Catheters by Ureteral route 7 times a day. Uses 14 Caude catheters, self cath's 7 times daily 10/24/2022 Active Amoxicillin 500 MG Oral Capsule (Amoxil)Indications :S/P AVR (aortic valve replacement) Take 4 capsules 30 to 60 minutes before dental evaluation. 4 Capsule 3 05/16/2023 Active Allopurinol 100 MG Oral Tablet (Zyloprim)Indicatio ns:Gouty arthropathy Take 1 Tablet by mouth in the morning and 1 Tablet before bedtime. TAKE ONE TABLET BY MOUTH IN THE MORNING AND TAKE ONE TABLET BEFORE BEDTIME. 200 Tablet 3 05/29/2023 Active Atorvastatin Calcium 20 MG Oral Tablet (Lipitor) Take 1 Tablet by mouth in the morning. 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 Maximum 3 doses. 10 Tablet 5 12/19/2023 Active Vitamin D 125 MCG (5000 UT) Oral Capsule Take by mouth. Active Carvedilol 12.5 MG Oral Tablet (Coreg) Take 1 Tablet by mouth in the morning and 1 Tablet before bedtime. 180 Tablet 3 01/19/2024 Active Omeprazole 40 MG Oral Capsule Delayed Release (PriLOSEC)Indicatio ns:History of esophageal cancer Take 1 Capsule by mouth in the morning. 30 Capsule 01/26/2024 Active Levothyroxine Sodium 150 MCG Oral Tablet (Levoxyl)Indication s:Hypothyroidism due to acquired atrophy of thyroid TAKE ONE TABLET BY MOUTH EVERY MORNING AT LEAST 30 MINUTES PRIOR TO BREAKFAST OR OTHER MEDS 90 Tablet 2 01/26/2024 Active documented as of this encounter (statuses as of 02/09/2024) Active Problems Problem Noted Date Diagnosed Date Cardiomyopathy 05/26/2023 Stage 3 chronic kidney disease 05/26/2023 S/P AVR (aortic valve replacement) 02/17/2023 Lung nodule, solitary 02/17/2023 Overview: Patient has stable 8 mm nodule in left lung. 08/2023. Repeat CT chest in 1 year. 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 10/15/19 08 Coronary atherosclerosis of chitina coronary celina ry 10/15/2007 BPH without obstruction/lower urinary tract symp toms 09/08/2005 Other allergic rhinitis 02/28/2001 Overview: ICD-10 update of inactive term Hastings's esophagus with high grade dysplasia Overview: Hastings's esophagus: egd by Dr Grant () f/u EGD 2001- per pt Cyst of kidney, acquired Overview: followed at [facility] documented as of this encounter (statuses as of 02/09/2024) Resolved Problems Problem Noted Date Diagnosed Date [...] 3.4 by CTA 08/09/2012 [facility] Other*[id number] 03/08/2011 05/24/2016 Shortness of breath 02/22/2011 12/09/19 [...] as of this encounter (statuses as of 02/09/2024) Immunizations Name Administration Dates Next Due COVID-19 mRNA, LNP-s, No Pre serve, 2-Dose Series (Moderna) 06/10/2020,05/13/2020 COVID-19, LNP-s, No Preserve , Adiel-sucrose, Ages 12+ (Pfizer) 12/06/2021 COVID-19, MRNA-LNP, 23-24, P F, 30 MCG/0.3 mL, 12 YRS AND ABOVE, IM (PFIZER-Comirnaty) 03/14/2023 COVID-19, mRNA, LNP-s, PF, B ooster, 100mcg/0.5mg (Moderna) 02/24/2021 Covid-19, Mrna, Lnp-s, Pf, B ivalent, 30 Mcg, IM, 12 yrs and above (Pfizer) 04/19/2022 HEP A - Hepatitis A (Adult > 18 yrs) 02/13/2007, 07/18/2006 Hepatitis B, 20+ yrs 08/30/2016,03/15/2016,02/10 Pneumococcal Conjugate Vacc, 13 Valent (Prevnar) 12/11/2017,12/22/2015 Pneumococcal Polysaccharide PPV23 (Pneumovax) 06/10/2022,12/06/2012,01/20/2006 RSV Vac., Bivalent, Perfusio n F, Pf,0.5 Ml (Abrysvo) 02/23/2023 Season Influenza, Quad, PF, Adjuvanted, 65+ Yrs, IM (FLUAD) 02/03/2022,01/28/2020 Seasonal Influenza Vac., MDV , IM, 0.5 mL (Fluzone) 02/05/2014,03/05/2013,02/06/2012,02/01,01/06/2010,03/23/2009,03/05/2008 ,02/13/2007,01/20/2006 Seasonal Influenza Virus Vac cine, Unspecified Formulation 12/21/2018,01/29/2018,01/18/2017,01/15,02/24/2016,01/06/2010,03/23/2009 ,03/05/2008,02/13/2007,01/20/2006,03/17,03/20/2003,04/03/2002, 1,03/22/2000 Seasonal Influenza, PF, 6 M & above, IM , (FluLaval or Fluzone) 01/29/2018 Seasonal Influenza, Quadriva lent Hd (Fluzone Hd) 12/28/2022,03/02/2021 Seasonal Influenza, Quadriva lent, No Preserve, IM 01/18/2017,02/24/2016,03/04/2015 Seasonal Influenza, Trivalen t, Adjuvanted, 65+ YRS, PF, (Fluad) 12/21/2018 TD - Tetanus/Diptheria (ADULT) 08/07/2007 TDAP, Age 7 and older, IM (Adacel) 09/13/2016 Varicella Zoster Vaccine (Adult) 02/06/2012 Zoster Vaccine Recombinant (Shingrix) 04/04/2020 ,02/03/2020 documented as of this encounter Social History Tobacco Use Types Packs/Day Years Used Date Smoking Tobacco: Former Cigarettes 1 20 0 04/17/1962 - 04/17/1982 Passive Smoke Exposure: Past Smokeless Tobacco: [...] Date Recorded PHQ Adult Total Score 0 01/22/2024 Hunger Vital Sign Answer Date Recorded Within the past 12 months, y ou worried that your food would run out before you got the money to buy more. Never true 01/22/20 24 Within the past 12 months, t he food you bought just didn't last and you didn't have money to get more. Never true 01/22/2024 Childcare Answer Date Recorded Do you feel overwhelmed with taking care of a child, family member or friend? Yes 01/22/2024 Does your family need help f inding childcare? (Household - for ages 0-17 years) Not on file 01/22/2024 Clothing Answer Date Recorded Have you been unable to get clothing when it was really needed? No 01/22/2024 Is your family able to get c lothes or diapers when needed? (Household - for ages 0-17 years) Not on file 01/22/2024 Personal Safety Answer Date Recorded Do you feel unsafe or have concerns for your saf ety? No 01/22/2024 Do you have concerns for you r family's safety? (Household - for ages 0-17 years) Not on file 01/22/2024 Utilities Answer Date Recorded Do you have trouble paying y our heating, water, or electric bill? No 01/22/2024 Is your family able to pay t he heat, water, or electric bill? (Household - for ages 0-17 years) Not on file 01/22/2024 Does your family have access to good internet? (Household - for ages 0-17 years) Not on file 01/22/2024 Employment Status Answer Date Recorded Are you unemployed or without regular income? No 01/22/2024 Does the household have a re gular source of income? (Household - for ages 0-17 years) Not on file 01/22/2024 Social Connections Answer Date Recorded How often do you feel lonely or isolated from th ose around you? Never 01/22/2024 Financial Resource Strain Answer Date R ecorded Do you have any trouble payi ng for your medications, or do you think you might in the future? No 01/22/2024 Does your family have troubl e paying for medicine? (Household - for ages 0-17 years) Not on file 01/22/2024 Transportation Needs Answer Date Record ed READ ONLY Do you have troubl e getting a ride to medical visits or work? Never True 01/22/2024 Does your family have a hard time getting a ride to doctors visits? (Household - for ages 0-17 years) Not on file 01/22/2024 Has lack of transportation k ept you from medical appointments, meetings, work, or from getting things needed for daily living? Check all that apply. No 01/22/2024 Do you (or your family) have trouble finding or paying for a ride (transportation)? (Household - for ages 0-17 years) Not on file 01/22/2024 Housing Stability Answer Date Recorded Do you currently live in a s helter or have no steady place to sleep at night? No 01/22/2024 READ ONLY Do you think you a re at risk of becoming homeless? No 01/22/2024 Does your family worry about paying for your home or becoming homeless? (Household - for ages 0-17 years) Not on file 1 Are you homeless or worried that you might be in the future? No 01/22/2024 Are you (or your family) flora eless or worried that you might be in the future? (Household - for ages 0-17 years) Not on file Food Insecurity Answer Date Recorded Do you need food for this week? No 01/22/2024 Are you able to get enough f ood for your family? (Household - for ages 0-17 years) Not on file 01/22/2024 Does your family need food t his week? (Household - for ages 0-17 years) Not on file 01/22/2024 Do you always have enough fo od for your family? (Household - for ages 0-17 years) Not on file 01/22/2024 Sex and Gender Information Value Date Recorded Sex Assigned at Male 08/03/2022 9:25 AM EDT Gender Identity Male 08/03/2022 9:25 AM EDT Sexual Orientation Straight 08/03/2022 9: 25 AM EDT Job Start Date Occupation Industry Not on file Not on file Not on file documented as of this encounter Miscellaneous Notes * Telephone Encounter - Katie Crow LPN - 02/09/2024 2:06 PM EDT Sent fax back to [place] with [employer] regarding form to be filled out, told Dr Pablo did not order this test and not something she would order. Pt would need seen to discuss the test he is requesting. * Telephone Encounter - Gala Pablo MD - 02/09/2024 8:42 AM EDT Received to faxes from [facility] is requesting an order for comprehensive neurologic testing. This is not anything that I ordered, or would normally order. Please get more information from patient. documented in this encounter Plan of Treatment Upcoming Encounters Date Type Department Care Team (Late st Contact Info) Description 02/16/2024 1:30 PM EDT Office Visit General Surgery, [facility] [address] [address] Michele Costa MD [address] [place] [phone] 02/22/2024 11:00 AM EST Laboratory Laboratory, [facility] [address] [place] [phone] GonzalezJanel ibarra [facility] [address] [place] [id number] 03/04/2024 11:20 AM EST Office Visit D[facility]atology, [facility] [address] [place] [address] Wanda Mooney PA-C [address] [place] [address] 03/11/2024 3:00 PM EST Office Visit Cardiology, [facility] [address] [place] [address] Erwin Weiner MD [address] [facility] [place] [address] 03/18/2024 3:00 PM EST Office Visit Nephrology, [facility] [address] [facility] [place] [address] Ryan Issa MD [address] [facility] [place] [address] 08/21/2024 12:20 PM EDT Office Visit Family Practice [facility] [address] [facility] [place] [address] Gala Pablo MD [address] [facility] [place] [address] Health Maintenance Due Date Last Done Comments Adult Wellness Visit 08/20/2023 08/19/2022, 04/02/20 21 Albumin/Creatinine Ratio 09/07/2023 023, 09/21/2021, 09/10/2013, Additional history exists GFR 11/29/2023 05/31/2023, 03/18, 03/02/2023, Additional history exists Influenza Vaccine (FLU shot) (#1) 2023 12/28/2022, 02/03/2022, 03/02/2021, Additional history exists CKD PHOS USE SMARTSET 18320 02/28/202402/15, 12/13/2022, 10/11/2021, Additional history exists CKD HGB USE SMARTSET 89701 04/13/202404/13, 04/13/2023, 03/02/2023, Additional history exists HbA1c 05/31/2024 05/31/2023, 11/16, 09/05/2022, Additional history exists TSH 05/31/2024 05/31/2023, 02/15, 10/25/2022, Additional history exists Depression Screening 01/21/2025 01/22/2024 DTap/Tdap Vaccines (2 - Td or Tdap) 09/13/2026 09/13/2016, 08/07/2007 Hepatitis B Vaccine Completed 08/30/2016, 03/15/2016, 02/11/2016 Zoster Vaccines Completed 04/04/2020, 01/15, 02/06/2012 Pneumococcal Vaccine: 65+ Years Completed 06/10/2022, 12/11/2017, 12/22/2015, Additional history exists Hastings's Esophagus Surveilance Discontinued 10/27/2022, 11/19/2019, 03/17/2016, Additional history exists COVID-19 Vaccine Discontinued 03/14/2023, 06/2022, 12/06/2021, Additional history exists HPV (Gardasil) Vaccine Aged Out No lo nger eligible based on patient's age to complete this topic MENINGOCOCCAL (MENACTRA/MENVEO) Aged Out No longer eligible based on patient's age to complete this topic documented as of this encounter Medical Devices Not on filedocumented as of this encounter Care Teams Wood Handler Relationship Specialty Start Date End Date Gala Pablo MD [address] [facility] [place] [address] PCP - General Internal Medicine 05/18/23 documented as of this encounter
--- OUTSIDE RECORDS SUMMARY | 2024-02-12 22:49 | External Medical Summary | Summary of Care ---
Author Name Unknown Organization [facility] Address [address] [place] [address] Phone [phone] Care Team Providers Care Tombstone Erector Helper Name Role Phone Gala Pablo MD Primary Care Provider Reason for Visit * Reason Onset Date Comments Advice 01/19/2024 CARVEDILOL Encounter Details Date Type Department Care Team (Late st Contact Info) Description 01/19/2024 Telephone Care Coordination and Integration [address] [place], [place] [id number] Katie Sung RN [address] [place] [address] Advice (CARVEDILOL) Allergies Active Allergy Reactions Criticality Noted Date Comments Cat Dander 09/25/2014 Dog Dander 09/25/2014 Dust 09/23/2015 Pollen 09/25/2014 Losartan Other (Please comment) 03/02/2021 Hyperkalemia Morphine Nausea/vomiting Low 12/13/2017 Ragweed 09/25/2014 documented as of this encounter (statuses as of 01/19/2024) Medications Medication Sig Dispensed Refills Start Date [...] 1 Tablet by mouth every evening. Active [place]-3 Fatty Acids (ULTRA OMEGA 3) 952 MG [...] dental evaluation. 4 Capsule 3 05/16/2023 Active Additional Information Patient not taking.Reported on 01/08/2024 Allopurinol 100 MG Oral Tablet (Zyloprim)Helenetio ns:Gouty arthropathy Take 1 Tablet by mouth in the morning and 1 Tablet before bedtime. TAKE ONE TABLET BY MOUTH IN THE MORNING AND TAKE ONE TABLET BEFORE BEDTIME. 200 Tablet 3 05/29/2023 Active Levothyroxine Sodium 150 MCG Oral Tablet (Levoxyl) TAKE ONE TABLET BY MOUTH EVERY MORNING AT LEAST 30 MINUTES PRIOR TO BREAKFAST OR OTHER MEDS 90 Tablet 2 07/03/2023 Active Atorvastatin Calcium 20 MG Oral Tablet (Lipitor) Take 1 Tablet by mouth in the morning. 100 Tablet 3 07/14/2023 Active Omeprazole 40 MG Oral Capsule Delayed Release (PriLOSEC)[place]et[place] ns:History of esophageal cancer Take 1 Capsule by mouth in the morning. 90 Capsule 1 07/20/2023 Active Carvedilol 12.5 MG Oral Tablet (Coreg) Take 1 Tablet by mouth in the morning and 1 Tablet before bedtime. Active Eliquis 2.5 MG Oral Tablet (Apixaban)[place]et[place] ns:Paroxysmal atrial fibrillation (HCC) TAKE ONE TABLET BY MOUTH EVERY MORNING AND 1 TABLET BEFORE BEDTIME 180 Tablet 11/17/2023 Active Nitroglycerin 0.4 MG Sublingual Tablet Sublingual (Nitrostat)Indicati ons:Atherosclerosis of [place] coronary artery of [place] heart without angina pectoris Place 1 Tablet under the tongue every 5 minutes as needed for Pain, Chest. Maximum 3 doses. 10 Tablet 5 12/19/2023 Active Additional Information Patient not taking.Reported on 01/08/2024 Vitamin D 125 MCG (5000 UT) Oral Capsule Take by mouth. Active Levothyroxine Sodium 137 MCG Oral Tablet Take 1 Tablet by mouth in the morning. (at least 30 min prior to breakfast or other meds). 30 Tablet 11 01/08/2024 Active documented as of this encounter (statuses as of 01/19/2024) Active Problems Problem Noted Date Diagnosed Date [...] bypass graft 10/15/19 08 Coronary atherosclerosis of [place] coronary celina ry 10/15/2007 BPH without obstruction/lower urinary tract symp toms 09/08/2005 Other allergic rhinitis 02/28/2001 Overview: ICD-10 update of inactive term Hastings's esophagus with high grade dysplasia Overview: Hastings's esophagus: egd by Dr Grant () f/u EGD 2001- neg per pt Cyst of kidney, acquired Overview: followed at [place] documented as of this encounter (statuses as of 01/19/2024) Resolved Problems Problem Noted Date Diagnosed Date [...] 3.4 by CTA 08/09/2012 [employer] [facility] [facility] Other*[id number] 03/08/2011 05/24/2016 Shortness of breath 02/22/2011 12/09/19 [...] as of this encounter (statuses as of 01/19/2024) Immunizations Name Administration Dates Next Due COVID-19 mRNA, LNP-s, No Pre serve, 2-Dose Series (Moderna) 06/10/2020,05/13/2020 COVID-19, LNP-s, No Preserve , Adiel-sucrose, Ages 12+ (CloudEndure) 12/06/2021 COVID-19, MRNA-LNP, 23-24, P F, 30 [...] Date Recorded PHQ Adult Total Score 0 05/26/2023 Hunger Vital Sign Answer Date Recorded Within the past 12 months, y ou worried that your food would run out before you got the money to buy more. Never true 05/26/19 24 Within the past 12 months, t he food you bought just didn't last and you didn't have money to get more. Never true 05/26/2023 Childcare Answer Date Recorded Do you feel overwhelmed with taking care of a child, family member or friend? No 05/26/2023 Does your family need help f inding childcare? (Household - for ages 0-17 years) Not on file 05/26/2023 Clothing Answer Date Recorded Have you been unable to get clothing when it was really needed? No 05/26/2023 Is your family able to get c lothes or diapers when needed? (Household - for ages 0-17 years) Not on file 05/26/2023 Personal Safety Answer Date Recorded Do you feel unsafe or have concerns for your saf ety? No 05/26/2023 Do you have concerns for you r family's safety? (Household - for ages 0-17 years) Not on file 05/26/2023 Utilities Answer Date Recorded Do you have trouble paying y our heating, water, or electric bill? No 05/26/2023 Is your family able to pay t he heat, water, or electric bill? (Household - for ages 0-17 years) Not on file 05/26/2023 Does your family have access to good internet? (Household - for ages 0-17 years) Not on file 05/26/2023 Employment Status Answer Date Recorded Are you unemployed or without regular income? No 05/26/2023 Does the household have a re gular source of income? (Household - for ages 0-17 years) Not on file 05/26/2023 Social Connections Answer Date Recorded How often do you feel lonely or isolated from th ose around you? Never 05/26/2023 Financial Resource Strain Answer Date R ecorded Do you have any trouble payi ng for your medications, or do you think you might in the future? No 05/26/2023 Does your family have troubl e paying for medicine? (Household - for ages 0-17 years) Not on file 05/26/2023 Transportation Needs Answer Date Record ed READ ONLY Do you have troubl e getting a ride to medical visits or work? Never True 05/26/2023 Does your family have a hard time getting a ride to doctors visits? (Household - for ages 0-17 years) Not on file 05/26/2023 Has lack of transportation k ept you from medical appointments, meetings, work, or from getting things needed for daily living? Check all that apply. (Adult - for ages 18 years and over) Not on file 05/26/2023 Do you (or your family) have trouble finding or paying for a ride (transportation)? (Household - for ages 0-17 years) Not on file 05/26/2023 Housing Stability Answer Date Recorded Do you currently live in a s helter or have no steady place to sleep at night? No 05/26/2023 READ ONLY Do you think you a re at risk of becoming homeless? No 05/26/2023 Does your family worry about paying for your home or becoming homeless? (Household - for ages 0-17 years) Not on file 0 05/26/2023 Are you homeless or worried that you might be in the future? (Adult - for ages 18 years and over) Not on file Are you (or your family) flora eless or worried that you might be in the future? (Household - for ages 0-17 years) Not on file Food Insecurity Answer Date Recorded Do you need food for this week? No 05/26/2023 Are you able to get enough f ood for your family? (Household - for ages 0-17 years) Not on file 05/26/2023 Does your family need food t his week? (Household - for ages 0-17 years) Not on file 05/26/2023 Do you always have enough fo od for your family? (Household - for ages 0-17 years) Not on file 05/26/2023 Sex and Gender Information Value Date Recorded Sex Assigned at Male 08/03/2022 9:25 AM EDT Gender Identity Male 08/03/2022 9:25 AM EDT Sexual Orientation Straight 08/03/2022 9: 25 AM EDT Job Start Date Occupation Industry Not on file Not on file Not on file documented as of this encounter Miscellaneous Notes * Telephone Encounter - Erwin Weiner MD - 01/19/2024 1:39 PM EDT Please change prescription to carvedilol 12.5 mg twice per day and confirm with patient * Telephone Encounter - Manju Gotti LPN - 01/19/2024 11:42 AM EDT Current carvedilol is listed as History per Pt. Pt was taking carvedilol 25mg AM and 12.5mg PM up until 09/07/23 when pt reported that he was .5mg BID and med list was updated. Please clarify if pt should be taking carvedilol 12.5 BID or if he should be taking 25mg AM and 12.5mg PM. * Telephone Encounter - Katie Sung RN - 01/19/2024 11:35 AM EDT Patient left another voice mail today, stating Dr Weiner prescribed the Carvedilol. Please advise ifhe should continue to take 1 pill in the AM and 1 pill in the PM or increase dose per prescription to 2 pills in the AM and 1 in the PM. Call pt to clarify please. Received a VM from the patient on 01/16 stating his new carvedilol Rx instructions have him taking 2pills in the AM and 1 pill in the evening but he has only been taking 1 in the AM and 1 in the evening. Per patient chart, no new Rx for this medication was sent in for patient. CM called patient andgot his voicemail. Left instructions for patient to continue with taking carvedilol 1 in AM and 1 in PM for now and to look at bottle to see who the prescriber is and contact them directly to clarify. Also offered for patient to contact this CM with additional info to follow up. Call back number given. documented in this encounter Plan of Treatment Upcoming Encounters Date Type Department Care Team (Late st Contact Info) Description 02/22/2024 11:00 AM EST Laboratory Laboratory, [facility] [address] [place] [phone] [facility] [address] [facility] [place] [address] 03/04/2024 11:20 AM EST Office Visit Dermatology, Jf Greco [address] [place] [address] Wanda Mooney PA-C [address] [place] [address] 03/18/2024 3:00 PM EST Office Visit Nephrology, Deniz Arteaga [address] [place] [address] Ryan Issa MD [address] [place] [address] 08/21/2024 12:20 PM EDT Office Visit Family Practice [facility] [address] [place] [address] Gala Pablo MD [address] [place] [address] Health Maintenance Due Date Last Done Comments Adult Wellness Visit 08/20/2023 08/19/2022, 04/02/20 21 Albumin/Creatinine Ratio 09/07/2023 023, 09/21/2021, 09/10/2013, Additional history exists GFR 11/29/2023 05/31/2023, 03/18, 03/02/2023, Additional history exists Influenza Vaccine (FLU shot) (#1) 2023 12/28/2022, 02/03/2022, 03/02/2021, Additional history exists CKD PHOS USE SMARTSET 37446 02/28/202402/15, 12/13/2022, 10/11/2021, Additional history exists CKD HGB USE SMARTSET 40109 04/13/202404/13, 04/13/2023, 03/02/2023, Additional history exists Depression Screening 05/26/2024 05/26/2023 HbA1c 05/31/2024 05/31/2023, 11/16, 09/05/2022, Additional history exists TSH 05/31/2024 05/31/2023, 02/15, 10/25/2022, Additional history exists DTap/Tdap Vaccines (2 - Td or Tdap) [...] filedocumented as of this encounter Care Teams Tombstone Erector Helper Relationship Specialty Start Date End Date Gala Pablo MD [address] [place] [address] PCP - General Internal Medicine 05/18/23 documented as of this encounter
--- OUTSIDE RECORDS SUMMARY | 2024-02-12 22:49 | External Medical Summary | Summary of Care ---
Author Name Unknown Organization [facility] Address [address] [facility] [address] Phone [phone] Care Team Providers Care Tobacco Checkout Clerk Name Role Phone Gala Pablo MD Primary Care Provider Reason for Visit * Reason Onset Date Comments Med Request 01/19/2024 Encounter Details Date Type Department Care Team (Late st Contact Info) Description 01/19/2024 Telephone Cardiology, [facility] [address] [place] [address] Erwin Weiner MD [address] [place] [address] Med Request Allergies Active Allergy Reactions Criticality Noted [...] 1 Tablet by mouth every evening. Active [place]-3 Fatty Acids (ULTRA OMEGA 3) 952 MG [...] 10/24/2022 Active Amoxicillin 500 MG Oral Capsule (Amoxil)Indicatio ns:S/P AVR (aortic valve replacement) Take 4 capsules 30 to 60 minutes before dental evaluation. 4 Capsule 3 05/16/2023 Active Additional Information Patient not taking.Reported on 01/08/2024 Allopurinol 100 MG Oral Tablet (Zyloprim)Indicat ions:Gouty [...] the morning. 90 Capsule 1 07/20/2023 Active Eliquis 2.5 MG Oral Tablet (Apixaban)Indicat ions:Paroxysmal atrial fibrillation (HCC) TAKE ONE TABLET BY MOUTH EVERY MORNING AND 1 TABLET BEFORE BEDTIME 180 Tablet 11/17/2023 Active Nitroglycerin 0.4 MG Sublingual Tablet Sublingual (Nitrostat)Indica tions:Atheroscler osis of [place] coronary artery of [place] heart without angina pectoris Place 1 Tablet [...] other meds). 30 Tablet 11 01/08/2024 Active Carvedilol 12.5 MG Oral Tablet (Coreg) Take 1 Tablet by mouth in the morning and 1 Tablet before bedtime. 180 Tablet 3 01/19/2024 Active Carvedilol 12.5 MG Oral Tablet (Coreg) Take 1 Tablet by mouth in the morning and 1 Tablet before bedtime. Discontinue d(Refill) documented as of this encounter (statuses as [...] bypass graft 10/15/19 08 Coronary atherosclerosis of [place] coronary celina ry 10/15/2007 BPH without obstruction/lower urinary tract symp toms 09/08/2005 Other allergic rhinitis 02/28/2001 Overview: ICD-10 update of inactive term Hastings's esophagus with high grade dysplasia Overview: Hastings's esophagus: egd by Dr Grant () f/u EGD 2001- neg per pt Cyst of kidney, acquired Overview: followed at [place] documented as of this encounter (statuses as [...] 3.4 by CTA 08/09/2012 [employer] [facility] [facility] Other*[id number] 03/08/2011 05/24/2016 Shortness of breath 02/22/2011 12/09/19 [...] encounter Miscellaneous Notes * Telephone Encounter - Jose C Merida LPN - 01/19/2024 1:51 PM EDT Pended to update at pharmacy. documented in this encounter Plan of Treatment Upcoming Encounters Date Type Department Care Team (Late st Contact Info) Description 02/22/2024 11:00 AM EST Laboratory Laboratory, [facility] [address] [place] [phone] Janel Gonzalez [address] [place] [address] 03/04/2024 11:20 AM EST Office Visit Dermatology, Elba LopezJf [address] [place] [address] Wanda Mooney PA-C [address] [place] [address] 03/18/2024 3:00 PM EST Office Visit Nephrology, [facility] [address] [facility] [place] [address] Ryan Issa MD [address] [facility] [place] [address] 08/21/2024 12:20 PM EDT Office Visit Family Practice [facility] [address] [place] [address] Gala Pablo MD [address] [place] [address] Health Maintenance Due Date Last Done Comments Adult Wellness Visit 08/20/2023 08/19/2022, 04/02/20 21 Albumin/Creatinine Ratio 09/07/2023 023, 09/21/2021, 09/10/2013, Additional history exists GFR 11/29/2023 05/31/2023, 03/18, 03/02/2023, Additional history exists Influenza Vaccine (FLU shot) (#1) 2023 12/28/2022, 02/03/2022, 03/02/2021, Additional history exists CKD PHOS USE SMARTSET 33636 02/28/202402/15, 12/13/2022, 10/11/2021, Additional history exists CKD HGB USE SMARTSET 51557 04/13/202404/13, 04/13/2023, 03/02/2023, Additional history exists Depression [...] filedocumented as of this encounter Care Teams Tobacco Checkout Clerk Relationship Specialty Start Date End Date Gala Pablo MD [address] [place] [address] PCP - General Internal Medicine 05/18/23 documented as of this encounter
--- OUTSIDE RECORDS SUMMARY | 2024-02-12 22:49 | External Medical Summary | Summary of Care ---
Author Name Unknown Organization [facility] Address [address] [facility] [place] [address] Phone [phone] Care Team Providers Care Emergency Medical Service Manager Name Role Phone Roseanna Fenton MD Primary Care Provider Reason for Visit * Reason Onset Date Comments Medication Refill 01/26/2024 Encounter Details Date Type Department Care Team (Late st Contact Info) Description 01/26/[address] [facility] [address] [place] [address] Roseanna Fenton MD [address] [place] [address] History of esophageal cancer Allergies Active Allergy Reactions Criticality Noted Date Comments Cat Dander 09/25/2014 Dog Dander 09/25/2014 Dust 09/23/2015 Pollen 09/25/2014 Losartan Other (Please comment) 03/02/2021 Hyperkalemia Morphine Nausea/vomiting Low 12/13/2017 Ragweed 09/25/2014 documented as of this encounter (statuses as of 01/26/2024) Medications Medication Sig Dispensed Refills Start Date [...] 1 Tablet by mouth every evening. Active [place]-3 Fatty Acids (ULTRA OMEGA 3) 952 MG [...] 07/14/2023 Active Eliquis 2.5 MG Oral Tablet (Apixaban)Indicat ions:Paroxysmal atrial fibrillation (HCC) TAKE ONE TABLET BY MOUTH EVERY MORNING AND 1 TABLET BEFORE BEDTIME 180 Tablet 11/17/2023 Active Nitroglycerin 0.4 MG Sublingual Tablet Sublingual (Nitrostat)Indica tions:Atheroscler osis of [place] coronary artery of [place] heart without angina pectoris Place 1 Tablet [...] in the morning. 30 Capsule 01/26/2024 Active Omeprazole 40 MG Oral Capsule Delayed Release (PriLOSEC)Indicat ions:History of esophageal cancer Take 1 Capsule by mouth in the morning. 90 Capsule 1 07/20/2023 Discontinue d(Refill) documented as of this encounter (statuses as of 01/26/2024) Active Problems Problem Noted Date Diagnosed Date [...] bypass graft 10/15/19 08 Coronary atherosclerosis of [place] coronary celina ry 10/15/2007 BPH without obstruction/lower urinary tract symp toms 09/08/2005 Other allergic rhinitis 02/28/2001 Overview: ICD-10 update of inactive term Hastings's esophagus with high grade dysplasia Overview: Hastings's esophagus: egd by Dr Grant () f/u EGD 2001- neg per pt Cyst of kidney, acquired Overview: followed at [place] documented as of this encounter (statuses as of 01/26/2024) Resolved Problems Problem Noted Date Diagnosed Date [...] 3.4 by CTA 08/09/2012 [facility] [facility] [facility] Other*[id number] 03/08/2011 05/24/2016 Shortness of breath 02/22/2011 12/09/19 [...] as of this encounter (statuses as of 01/26/2024) Immunizations Name Administration Dates Next Due COVID-19 [...] encounter Miscellaneous Notes * Telephone Encounter - Roseanna Fenton MD - 01/26/2024 5:39 PM EDT Signed Prescriptions: Disp Refills Omeprazole 40 MG Oral Capsule Delayed Rele*30 Cap*0 Sig: Take 1 Capsule by mouth in the morning. Authorizing Provider: ROSEANNA FENTON * Telephone Encounter - Sonal Benjamin LPN - 01/26/2024 9:07 AM EDT Pending Prescriptions: Disp Refills Omeprazole 40 MG Oral Capsule Delayed Rel*30 Cap*0 Sig: Take 1 Capsule by mouth in the morning. Last Visit: 01/08/2024 (in office), Visit date not found (telemedicine) Next Visit: 08/21/2024 Last date the medication was ordered: 4/4/24 requests a 30 day supply, pended per request. 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 HTN, GOAL BELOW 140/90 Dyslipidemia, goal LDL below 70 Sensorineural hearing loss (SNHL) of both ears Mild obstructive sleep apnea Neurogenic bladder Paroxysmal atrial fibrillation (HCC) Prediabetes Asymptomatic bilateral carotid artery stenosis Hypothyroidism due to acquired atrophy of thyroid Hypertensive kidney disease with stage 3b chronic kidney disease (HCC) Severe aortic insufficiency Adverse reaction to angiotensin 2 receptor antagonist Persistent proteinuria Infrarenal abdominal 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 (HCC) Aortic root enlargement (HCC) S/P AVR (aortic valve replacement) Lung nodule, solitary Cardiomyopathy (HCC) Stage 3 chronic kidney disease (HCC) Labs: Lab Results Component Value Date/Time CREATININE - [facility] 1.3 (H) 05/31/2023 01:35 PM CREATININE - [facility] 1.5 (H) 02/19/2020 11:37 AM CREATININE - [facility] 1.1 06/19/1996 09:00 AM CREATININE, RANDOM URINE - [facility] 81 09/06/2022 11:30 AM CREATININE, RANDOM URINE - [facility] 105 04/04/2017 08:11 AM Lab Results Component Value Date/Time POTASSIUM - [facility] 4.5 05/31/2023 01:35 PM POTASSIUM - [facility] 5.0 02/21/2020 12:20 PM POTASSIUM - [facility] 4.4 06/19/1996 09:00 AM Lab Results Component Value Date/Time TSH - [facility] 1.52 05/31/2023 01:35 PM TSH - [facility] 2.03 04/21/2020 10:27 [...] 06/19/1996 09:00 AM ALT - [facility] 19 04/13/2023 12:02 PM ALT - [facility] 14 12/02/2019 03:00 PM Hemoglobin AIC Results: Lab Results Component Value Date/Time HEMOGLOBIN A1C - [facility] 6.1 (H) 05/31/2023 01:35 PM HEMOGLOBIN A1C - [facility] 6.2 (H) 12/13/2022 10:53 AM HEMOGLOBIN A1C - [facility] 6.1 (H) 09/05/2022 10:57 AM HEMOGLOBIN A1C - [facility] 5.9 (H) 02/19/2020 11:37 AM HEMOGLOBIN A1C - [facility] 6.0 (H) 09/27/2019 12:15 PM HEMOGLOBIN A1C - [facility] 6.2 (H) 04/09/2019 11:49 AM documented in this encounter Plan of Treatment Upcoming Encounters Date Type Department Care Team (Late st Contact Info) Description 02/22/2024 11:00 AM EST Laboratory Laboratory, [facility] [address] [phone] GonzalezJanel ibarra [facility] [address] [address] 03/04/2024 11:20 AM EST Office Visit Dermatology, Jf Greco [address] [place] [address] Wanda Mooney PA-C [address] [place] [address] 03/11/2024 3:00 PM EST Office Visit Cardiology, [facility] [address] [facility] [place] [address] Erwin Weiner MD 132 [facility] [place] [address] 03/18/2024 3:00 PM EST Office Visit Nephrology, [facility] [address] [facility] [place] [address] Ryan Issa MD [address] [facility] [place] [address] 08/21/2024 12:20 PM EDT Office Visit Family Practice [facility] [address] [facility] [place] [address] Roseanna Fenton MD [address] [facility] [place] [address] Health Maintenance Due Date Last Done Comments Adult Wellness Visit 08/20/2023 08/19/2022, 04/02/20 21 Albumin/Creatinine Ratio 09/07/2023 023, 09/21/2021, 09/10/2013, Additional history exists GFR 11/29/2023 05/31/2023, 03/18, 03/02/2023, Additional history exists Influenza Vaccine (FLU shot) (#1) 2023 12/28/2022, 02/03/2022, 03/02/2021, Additional history exists CKD PHOS USE SMARTSET 47541 02/28/202402/15, 12/13/2022, 10/11/2021, Additional history exists CKD HGB USE SMARTSET 06511 04/13/202404/13, 04/13/2023, 03/02/2023, Additional history exists HbA1c [...] esophagus documented in this encounter Care Teams Emergency Medical Service Manager Relationship Specialty Start Date End Date Roseanna Fenton MD [address] [place] [address] PCP - General Internal Medicine 05/18/23 documented as of this encounter
--- OUTSIDE RECORDS SUMMARY | 2024-02-12 22:49 | External Medical Summary | Summary of Care ---
Author Name Unknown Organization [facility] Address [address] [place] [address] Phone [phone] Care Team Providers Care Backup Engineer Name Role Phone Gala Pablo MD Primary Care Provider Reason for Referral * Evaluate & Treat - Unlimited Visits (Within 30 days (routine)) - Authorized Specialty Diagnoses / Procedures Referred By Jose rivero Referred To Contact General Surgery Diagnoses Inguinal hernia without obstruction or gangrene, recurrence not specified, unspecified laterality Gala Pablo MD [address] [place] [address] Referral ID Status Reason Start Date Expiration Date Visits Requested Visits Authorized [id number] Authorized Specialty Services Required 4 [phone] Question Answer Referral Priority Within 30 days (routine) Where should this appointment be scheduled? [facility] What condition is the patient being seen for? General Surgery Conditions What condition is the patient being seen for? Hernia (excluding Hiatal) Reason for Visit * Reason Onset Date Comments Advice 02/02/2024 hernia Encounter Details Date Type Department Care Team (Late st Contact Info) Description 02/02/2024 Telephone Family Practice [facility] [address] [address] Gala Pablo MD [address] [place] [address] Advice (hernia) Allergies Active Allergy Reactions Criticality Noted Date Comments Cat Dander 09/25/2014 Dog Dander 09/25/2014 Dust 09/23/2015 Pollen 09/25/2014 Losartan Other (Please comment) 03/02/2021 Hyperkalemia Morphine Nausea/vomiting Low 12/13/2017 Ragweed 09/25/2014 documented as of this encounter (statuses as of 02/07/2024) Medications Medication Sig Dispensed Refills Start Date [...] 1 Tablet by mouth every evening. Active [place]-3 Fatty Acids (ULTRA OMEGA 3) 952 MG [...] on 01/08/2024 Allopurinol 100 MG Oral Tablet (Zyloprim)Indicatio ns:Gouty [...] MG Sublingual Tablet Sublingual (Nitrostat)Indicati ons:Atherosclerosis of [place] coronary artery of [place] heart without angina pectoris Place 1 Tablet [...] as of this encounter (statuses as of 02/07/2024) Active Problems Problem Noted Date Diagnosed Date [...] bypass graft 10/15/19 08 Coronary atherosclerosis of [place] coronary celina ry 10/15/2007 BPH without obstruction/lower urinary tract symp toms 09/08/2005 Other allergic rhinitis 02/28/2001 Overview: ICD-10 update of inactive term Hastings's esophagus with high grade dysplasia Overview: Hastings's esophagus: egd by Dr Grant () f/u EGD 2002- neg per pt Cyst of kidney, acquired Overview: followed at [place] documented as of this encounter (statuses as of 02/07/2024) Resolved Problems Problem Noted Date Diagnosed Date [...] 3.4 by CTA 08/09/2012 [employer] [facility] Other*[id number] 03/08/2011 05/24/2016 Shortness of breath 02/22/2011 12/09/19 [...] as of this encounter (statuses as of 02/07/2024) Immunizations Name Administration Dates Next Due COVID-19 [...] encounter Miscellaneous Notes * Telephone Encounter - Nathalia Chavez OSA - 02/07/2024 9:32 AM EDT Spoke w/ pt he has an appt w/ dr devine today wants to ask him some questions before scheduling surg referral * Telephone Encounter - Gala Pablo MD - 02/07/2024 8:55 AM EDT I am happy to recommend [facility] general surgeons for hernia repair. They can discuss pros/cons of surgical repair. Referral placed so he can see them when he returns * Telephone Encounter - Pinky Leija LPN - 02/06/2024 11:19 AM EDT Pt wants recommendation on gen surg for hernia surgery. * Telephone Encounter - Celina Brown OSA - 02/02/2024 1:56 PM EDT Is going to need hernia surgery Wants a recommendation Will be getting when comes back from [place] Please advise documented in this encounter Plan of Treatment Upcoming Encounters Date Type Department Care Team (Late st Contact Info) Description 02/07/2024 10:40 AM EDT Office Visit Family Practice [facility] [address] [address] Nacho Devine MD [address] [place] [address] 02/22/2024 11:00 AM EST Laboratory Laboratory, [facility] [address] [phone] Janel Gonzalez [address] [address] 03/04/2024 11:20 AM EST Office Visit Dermatology, [facility] [address] [place] [address] Wanda Mooney PA-C [address] [place] [address] 03/11/2024 3:00 PM EST Office Visit Cardiology, [facility] [address] [facility] [place] [address] Erwin Weiner MD 132 [facility] [place] [address] 03/18/2024 3:00 PM EST Office Visit Nephrology, [facility] [address] [facility] [place] [address] Ryan Issa MD [address] [facility] [place] [address] 08/21/2024 12:20 PM EDT Office Visit Family Practice [facility] [address] [facility] [place] [address] Gala Pablo MD [address] [facility] [place] [address] Scheduled Referrals Name Type Priority Associated Diagnoses Orde r Schedule SURGERY REFERRAL OP Referral Within 30 da ys (routine) Inguinal hernia without obstruction or gangrene, recurrence not specified, unspecified laterality Ordered: 02/07/2024 Health Maintenance Due Date Last Done Comments Adult Wellness Visit 08/20/2023 08/19/2022, 04/02/20 21 Albumin/Creatinine Ratio 09/07/2023 023, 09/21/2021, 09/10/2013, Additional history exists GFR 11/29/2023 05/31/2023, 03/18, 03/02/2023, Additional history exists Influenza Vaccine (FLU shot) (#1) 2023 12/28/2022, 02/03/2022, 03/02/2021, Additional history exists CKD PHOS USE SMARTSET 44689 02/28/202402/15, 12/13/2022, 10/11/2021, Additional history exists CKD HGB USE SMARTSET 63475 04/13/202404/13, 04/13/2023, 03/02/2023, Additional history exists HbA1c [...] as of this encounter Visit Diagnoses Diagnosis Inguinal hernia without obstruction or gangrene, recurrence not specified, unspecified laterality- Primary documented in this encounter Care Teams Backup Engineer Relationship Specialty Start Date End Date Gala Pablo MD [address] [address] PCP - General Internal Medicine 05/18/23 documented as of this encounter
--- OUTSIDE RECORDS SUMMARY | 2024-02-12 22:49 | External Medical Summary | Summary of Care ---
Author Name Unknown Organization [facility] Address [address] [facility] [place] [address] Phone [phone] Care Team Providers Care Retail Supervisor Name Role Phone Gala Pablo MD Primary Care Provider Reason for Visit * Reason Comments Return Visit Discuss gen surg ref erral for hernia repair Encounter Details Date Type Department Care Team (Late st Contact Info) Description 02/07/2024 10:40 AM EDT Office Visit Family Practice [facility] [address] [facility] [place] [address] Nacho Ho MD [address] [place] [address] Left inguinal hernia*; S/P AVR (aortic valve replacement); Paroxysmal atrial fibrillation (HCC) Allergies Active Allergy Reactions Criticality Noted Date [...] 1 Tablet by mouth every evening. Active [place]-3 Fatty Acids (ULTRA OMEGA 3) 952 MG [...] MG Sublingual Tablet Sublingual (Nitrostat)Indicati ons:Atherosclerosis of [place] coronary artery of [place] heart without angina pectoris Place 1 Tablet [...] bypass graft 10/15/19 08 Coronary atherosclerosis of [place] coronary celina ry 10/15/2007 BPH without obstruction/lower urinary tract symp toms 09/08/2005 Other allergic rhinitis 02/28/2001 Overview: ICD-10 update of inactive term Hastings's esophagus with high grade dysplasia Overview: Hastings's esophagus: egd by Dr Grant () f/u EGD 2001- per pt Cyst of kidney, acquired Overview: followed at [place] documented as of this encounter (statuses as [...] 3.4 by CTA 08/09/2012 [employer] Other*[id number] 03/08/2011 05/24/2016 Shortness of breath 02/22/2011 12/09/19 [...] 01/22/2024 Does the household have a re lar source of income? (Household - for ages [...] Sign Reading Time Taken Comments Blood Pressure 138/90 02/07/2024 11:09 AM EDT Pulse 55 02/07/2024 11:09 AM EDT Temperature - - Respiratory Rate 16 02/07/2024 11:09 AM EDT Oxygen Saturation 97% 02/07/2024 11:09 AM EDT Inhaled Oxygen Concentration - - Weight - - Height - - Body Mass Index - - documented in this encounter Progress Notes * Nacho Ho MD - 02/07/2024 11:38 AM EDT Images from the original note were not included. Subjective Hubert Persaud is a 83 year old male presenting for Return Visit (Discuss gen surg referral forhernia repair) History of Present Illness The patient, with a history of previous hernias, presents with a large, painless bulge in the left groin area, which he noticed in early January. The bulge, described as the size of a softball, was initially ignored due to the absence of pain, a symptom he had experienced with previous hernias. However, upon consultation with a doctor in [place], an ultrasound confirmed the presence of a hernia. The patient has a history of heart valve replacement & Afib, and is currently on blood thinners. He reports no difficulty with physical activities such as walking or climbing stairs, attributing any pauses to balance issues rather than cardiac symptoms. Good MET tolerance, able to climb set of stairs w/out difficulty. Objective Blood pressure 138/90, pulse 55, resp. rate 16, SpO2 97%. Physical Exam GENITOURINARY: Bulge in left super pubic area, soft, non-tender, not extending into scrotum. Right side of scrotum feels NT, soft, no masses. Results RADIOLOGY Ultrasound: Hernia in the left groin (January 2024) Assessment and Plan Assessment & Plan Left Inguinal Hernia Large, painless hernia identified in the left groin, not extending into the scrotum. No signs of incarceration or strangulation. History of previous hernia repair in 2006. -Refer to general surgery for outpatient hernia repair. -Coordinate with cardiology (Dr. Weiner) regarding perioperative management of anticoagulation. -Advise patient to seek immediate medical attention if hernia becomes painful or if there are otherchanges. Abdominal Pain Brief mention of a severe episode of abdominal pain in December. No further details provided in the conversation. -Obtain more information about the episode of abdominal pain at the next visit. Left inguinal hernia (Primary) S/P AVR (aortic valve replacement) Paroxysmal atrial fibrillation (HCC) Wrap-Up Follow-up: Return if symptoms worsen or fail to improve. | Check-out note: Needs Gen Surg consult for hernia--Dr Pablo ordered in telephone visit. Time: I spent a total of 30-39 minutes (exact time 32 mins) on the date of service in preparation, delivery, and documentation of the care provided to Hubert Persaud excluding any time spent in the performance of separately billed services. Text in this note was generated using an ambient documentation service. I discussed the use of a device to record and summarize our discussion today. All persons present during the encounter consented to its use. documented in this encounter Nursing Notes * Ptaricia Landrum LPN - 02/07/2024 11:09 AM EDT The patient has been properly identified by confirmation of name and date of . Chief Complaint Patient presents with Return Visit Discuss gen surg referral for hernia repair documented in this encounter Plan of Treatment Upcoming Encounters Date Type Department Care Team (Late st Contact Info) Description 02/16/2024 1:30 PM EDT Office Visit General Surgery, [facility] [address] [place] [address] Michele Costa MD [address] [place] [address] 02/22/2024 11:00 AM EST Laboratory Laboratory, [facility] [address] [place] [phone] Janel Gonzalez [facility] [address] [place] [address] 03/04/2024 11:20 AM EST Office Visit Dermatology, J[facility] Greco [address] [place] [address] Wanda Mooney PA-C [address] [address] 03/11/2024 3:00 PM EST Office Visit Cardiology, [facility] [address] [place] [address] Erwin Weiner MD [address] [facility] [place] [address] 03/18/2024 3:00 PM EST Office Visit Nephrology, [facility] [address] [place] [address] Ryan Issa MD [address] [place] [address] 08/21/2024 12:20 PM EDT Office Visit Family Practice [facility] [address] [place] [address] Gala Pablo MD [address] [place] [address] Health Maintenance Due Date Last Done Comments Adult Wellness Visit 08/20/2023 08/19/2022, 04/02/20 21 Albumin/Creatinine Ratio 09/07/2023 023, 09/21/2021, 09/10/2013, Additional history exists GFR 11/29/2023 05/31/2023, 03/18, 03/02/2023, Additional history exists Influenza Vaccine (FLU shot) (#1) 2023 12/28/2022, 02/03/2022, 03/02/2021, Additional history exists CKD PHOS USE SMARTSET 18191 02/28/202402/15, 12/13/2022, 10/11/2021, Additional history exists CKD HGB USE SMARTSET 76526 04/13/202404/13, 04/13/2023, 03/02/2023, Additional history exists HbA1c [...] as of this encounter Visit Diagnoses Diagnosis Left inguinal hernia- Primary Inguinal hernia without mention of obstruction or gangrene, unilateral or unspecified, (not specified as recurrent) S/P AVR (aortic valve replacement) Heart valve replaced by other means Paroxysmal atrial fibrillation (HCC) Atrial fibrillation documented in this encounter Care Teams Retail Supervisor Relationship Specialty Start Date End Date Gala Pablo MD [address] [facility] [place] [address] PCP - General Internal Medicine 05/18/23 documented as of this encounter"
--- OUTSIDE RECORDS SUMMARY | 2024-02-12 22:49 | External Medical Summary | Summary of Care ---
Author Name Unknown Organization [facility] Address [address] [facility] [place] [address] Phone [phone] Care Team Providers Care Health Science Instructor Name Role Phone Gala Pablo MD Primary Care Provider Reason for Visit * Reason Onset Date Comments Appointment 01/22/2024 Encounter Details Date Type Department Care Team (Late st Contact Info) Description 01/22/2024 Telephone Cardiology, [facility] [address] [place] [address] Erwin Weiner MD [address] [place] [address] Appointment Allergies Active Allergy Reactions Criticality Noted Date Comments Cat Dander 09/25/2014 Dog Dander 09/25/2014 Dust 09/23/2015 Pollen 09/25/2014 Losartan Other (Please comment) 03/02/2021 Hyperkalemia Morphine Nausea/vomiting Low 12/13/2017 Ragweed 09/25/2014 documented as of this encounter (statuses as of 01/30/2024) Medications Medication Sig Dispensed Refills Start Date [...] 1 Tablet by mouth every evening. Active [place]-3 Fatty Acids (ULTRA OMEGA 3) 952 MG [...] MG Sublingual Tablet Sublingual (Nitrostat)Indicati ons:Atherosclerosis of [place] coronary artery of [place] heart without angina pectoris Place 1 Tablet [...] before bedtime. 180 Tablet 3 01/19/2024 Active documented as of this encounter (statuses as of 01/30/2024) Active Problems Problem Noted Date Diagnosed Date [...] bypass graft 10/15/19 08 Coronary atherosclerosis of [place] coronary celina ry 10/15/2007 BPH without obstruction/lower urinary tract symp toms 09/08/2005 Other allergic rhinitis 02/28/2001 Overview: ICD-10 update of inactive term Hastings's esophagus with high grade dysplasia Overview: Hastings's esophagus: egd by Dr Grant () f/u EGD 2001- neg per pt Cyst of kidney, acquired Overview: followed at [place] documented as of this encounter (statuses as of 01/30/2024) Resolved Problems Problem Noted Date Diagnosed Date [...] 3.4 by CTA 08/09/2012 [employer] Other*[id number] 03/08/2011 05/24/2016 Shortness of breath 02/22/2011 12/09/19 [...] as of this encounter (statuses as of 01/30/2024) Immunizations Name Administration Dates Next Due COVID-19 [...] Miscellaneous Notes * Telephone Encounter - Katie Sung RN - 01/22/2024 4:14 PM EDT Patient made aware of appointment information below. * Telephone Encounter - Gian Rocha OSA - 01/22/2024 2:10 PM EDT Patient scheduled on: RETURN CARDIOLOGY at 3:00 PM (30 min)Arrive by 2:45 PM Monday March 11, 2024 Appointment Provider:Erwin Weiner MD in CARDIOLOGY [facility] * Telephone Encounter - Manju Gotti LPN - 01/22/2024 1:01 PM EDT See 01/22/24 Pt outreach note. Pt requires cardiology follow up. Currently in [place] until 02/04 documented in this encounter Plan of Treatment Upcoming Encounters Date Type Department Care Team (Late st Contact Info) Description 02/22/2024 11:00 AM EST Laboratory Laboratory, [facility] [address] [facility] [place] [phone] GonzalezJanel ibarra [facility] [address] [facility] [place] [address] 03/04/2024 11:20 AM EST Office Visit Dermatology, Juliet [place] [address] [place] [address] Wanda Mooney PA-C [address] [place] [address] 03/11/2024 3:00 PM EST Office Visit Cardiology, [facility] [address] [place] [address] Erwin Weiner MD [address] [facility] [place] [address] 03/18/2024 3:00 PM EST Office Visit Nephrology, [facility] [address] [facility] [place] [address] Ryan Issa MD [address] [facility] [place] [address] 08/21/2024 12:20 PM EDT Office Visit Family Practice [facility] [address] [place] [address] Gala Pablo MD [address] [facility] [place] [address] Health Maintenance Due Date Last Done Comments Adult Wellness Visit 08/20/2023 08/19/2022, 04/02/20 21 Albumin/Creatinine Ratio 09/07/2023 023, 09/21/2021, 09/10/2013, Additional history exists GFR 11/29/2023 05/31/2023, 03/18, 03/02/2023, Additional history exists Influenza Vaccine (FLU shot) (#1) 2023 12/28/2022, 02/03/2022, 03/02/2021, Additional history exists CKD PHOS USE SMARTSET 73350 02/28/202402/15, 12/13/2022, 10/11/2021, Additional history exists CKD HGB USE SMARTSET 97383 04/13/202404/13, 04/13/2023, 03/02/2023, Additional history exists HbA1c [...] filedocumented as of this encounter Care Teams Health Science Instructor Relationship Specialty Start Date End Date Gala Pablo MD [address] [facility] [place] [address] PCP - General Internal Medicine 05/18/23 documented as of this encounter
--- OUTSIDE RECORDS SUMMARY | 2024-02-12 22:49 | External Medical Summary | Summary of Care ---
Author Name Unknown Organization [facility] Address [address] [place] [address] Phone [phone] Care Team Providers Care Hand Brim Ironer Name Role Phone Gala Pablo MD Primary Care Provider Reason for Visit * Reason Onset Date Comments Advice 01/19/2024 CARVEDILOL Encounter Details Date Type Department Care Team (Late st Contact Info) Description 01/19/2024 Telephone Care Coordination and Integration [address] [place], [place] [phone] Katie Sung RN [address] [place] [address] Advice (CARVEDILOL) Allergies Active Allergy [...] 1 Tablet by mouth every evening. Active [place]-3 Fatty Acids (ULTRA OMEGA 3) 952 MG [...] MG Sublingual Tablet Sublingual (Nitrostat)Indicati ons:Atherosclerosis of [place] coronary artery of [place] heart without angina pectoris Place 1 Tablet [...] bypass graft 10/15/19 08 Coronary atherosclerosis of [place] coronary celina ry 10/15/2007 BPH without obstruction/lower urinary tract symp toms 09/08/2005 Other allergic rhinitis 02/28/2001 Overview: ICD-10 update of inactive term Hastings's esophagus with high grade dysplasia Overview: Hastings's esophagus: egd by Dr Grant () f/u EGD 2001- neg per pt Cyst of kidney, acquired Overview: followed at [place] documented as of this encounter (statuses as [...] 3.4 by CTA 08/09/2012 [employer] Other*[id number] 03/08/2011 05/24/2016 Shortness of breath 02/22/2011 12/09/19 [...] LNP-s, No Preserve , Adiel-sucrose, Ages 12+ (ROCKI) 12/06/2021 COVID-19, MRNA-LNP, 23-24, P F, 30 [...] Vac., MDV , IM, 0.5 mL (Fluzone) 02/05/2014,03/05/2013,02/06/2012,01/15,01/06/2010,03/23/2009,03/05/20 08,02/13/2007,01/20/2006,03/31/2005,1 05/21/2002,04/03/2002,04/05/2001,03/2209/16/2001 Seasonal Influenza Virus Vac cine, Unspecified Formulation 12/21/2018,01/29/2018,01/18/2017,04/2016,02/24/2016,01/06/2010,03/23/20 09,03/05/2008,02/13/2007,01/20/2006,1 06/01/2004,03/20/2003,04/03/2002,04/05,03/22/2000 Seasonal Influenza, PF, 6 M & above, [...] - Jose C Merida LPN - 01/19/2024 1:48 PM EDT Called and informed patient of Dr. Weiner's message. Patient verbalized understanding. * Telephone Encounter - Erwin Weiner MD [...] 09/07/23 when pt reported that he was nenvjl94.5mg BID and med list was updated. Please [...] Description 02/22/2024 11:00 AM EST Laboratory Laboratory, [facility] [address] [facility] [place] [phone] Janel Gonzalez [facility] [place] [address] 03/04/2024 11:20 AM EST Office Visit Dermatology, Elba LopezJf [address] [place] [address] Wanda Mooney PA-C [address] [place] [address] 03/18/2024 3:00 PM EST Office Visit Nephrology, [facility] [address] [facility] [address] [place] [address] Ryan Issa MD [address] [facility] [place] [address] 08/21/2024 12:20 PM EDT Office Visit Family Practice [facility] [address] [address] Gala Pablo MD [address] [place] [address] Health Maintenance Due Date Last Done Comments Adult Wellness Visit 08/20/2023 08/19/2022, 04/02/20 21 Albumin/Creatinine Ratio 09/07/2023 023, 09/21/2021, 09/10/2013, Additional history exists GFR 11/29/2023 05/31/2023, 03/18, 03/02/2023, Additional history exists Influenza Vaccine (FLU shot) (#1) 2023 12/28/2022, 02/03/2022, 03/02/2021, Additional history exists CKD PHOS USE SMARTSET 66947 02/28/202402/15, 12/13/2022, 10/11/2021, Additional history exists CKD HGB USE SMARTSET 28371 04/13/202404/13, 04/13/2023, 03/02/2023, Additional history exists Depression [...] filedocumented as of this encounter Care Teams Hand Brim Ironer Relationship Specialty Start Date End Date Gala Pablo MD [address] [address] PCP - General Internal Medicine 05/18/23 documented as of this encounter
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
--- OUTSIDE RECORDS SUMMARY | 2024-02-12 22:49 | External Medical Summary | Summary of Care ---
Author Name Unknown Organization [facility] Address [address] [place] [address] Phone [phone] Care Team Providers Care Fusion Analyst Name Role Phone Gala Pablo MD Primary Care Provider Reason for Visit * Reason Onset Date Comments Advice 01/19/2024 CARVEDILOL Encounter Details Date Type Department Care Team (Late st Contact Info) Description 01/19/2024 Telephone Care Coordination and Integration [address] [place], [place] [phone] Katie Sung RN [address] [place] [address] Advice (CARVEDILOL) Allergies Active Allergy [...] 1 Tablet by mouth every evening. Active [place]-3 Fatty Acids (ULTRA OMEGA 3) 952 MG [...] MG Sublingual Tablet Sublingual (Nitrostat)Indicati ons:Atherosclerosis of [place] coronary artery of [place] heart without angina pectoris Place 1 Tablet [...] bypass graft 10/15/19 08 Coronary atherosclerosis of [place] coronary celina ry 10/15/2007 BPH without obstruction/lower urinary tract symp toms 09/08/2005 Other allergic rhinitis 02/28/2001 Overview: ICD-10 update of inactive term Hastings's esophagus with high grade dysplasia Overview: Hastings's esophagus: egd by Dr Grant () f/u EGD 2001- neg per pt Cyst of kidney, acquired Overview: followed at [place] documented as of this encounter (statuses as [...] 3.4 by CTA 08/09/2012 [employer] Other*[id number] 03/08/2011 05/24/2016 Shortness of breath 02/22/2011 12/09/19 [...] LNP-s, No Preserve , Adiel-sucrose, Ages 12+ (Jumo) 12/06/2021 COVID-19, MRNA-LNP, 23-24, P F, 31 [...] 09/07/23 when pt reported that he was hjkimc58.5mg BID and med list was updated. Please [...] Description 02/22/2024 11:00 AM EST Laboratory Laboratory, [facility] 132 [facility] [place] [phone] Janel Gonzalez [facility] [place] [address] 03/04/2024 11:20 AM EST Office Visit Dermatology, [facility] [address] [place] [address] Wanda Mooney PA-C [address] [place] [address] 03/18/2024 3:00 PM EST Office Visit Nephrology, [facility] Ar[facility] 200 [facility] [place] [place] [address] Ryan Issa MD 200 [facility] [place] [address] 08/21/2024 12:20 PM EDT Office Visit Family Practice [facility] [address] [place] [address] Gala Pablo MD [address] [place] [address] Health Maintenance Due Date Last Done Comments Adult Wellness Visit 08/20/2023 08/19/2022, 04/02/20 21 Albumin/Creatinine Ratio 09/07/2023 023, 09/21/2021, 09/10/2013, Additional history exists GFR 11/29/2023 05/31/2023, 03/18, 03/02/2023, Additional history exists Influenza Vaccine (FLU shot) (#1) 2023 12/28/2022, 02/03/2022, 03/02/2021, Additional history exists CKD PHOS USE SMARTSET 10613 02/28/202402/15, 12/13/2022, 10/11/2021, Additional history exists CKD HGB USE SMARTSET 99714 04/13/202404/13, 04/13/2023, 03/02/2023, Additional history exists Depression [...] filedocumented as of this encounter Care Teams Fusion Analyst Relationship Specialty Start Date End Date Gala Pablo MD [address] [place] [address] PCP - General Internal Medicine 05/18/23 documented as of this encounter
--- OUTSIDE RECORDS SUMMARY | 2024-02-12 22:50 | External Medical Summary | Summary of Care ---
Author Name Unknown Organization [facility] Address [address] [facility] [place] [address] Phone [phone] Care Team Providers Care Casting Coordinator Name Role Phone Gala Pablo MD Primary Care Provider Reason for Visit * Reason Onset Date Comments Appointment 01/08/2024 Encounter Details Date Type Department Care Team (Late st Contact Info) Description 01/08/2024 Telephone Family Practice [facility] [address] [place] [address] Gala Pablo MD [address] [place] [address] Appointment Allergies Active Allergy Reactions Criticality Noted Date Comments Cat Dander 09/25/2014 Dog Dander 09/25/2014 Dust 09/23/2015 Pollen 09/25/2014 Losartan Other (Please comment) 03/02/2021 Hyperkalemia Morphine Nausea/vomiting Low 12/13/2017 Ragweed 09/25/2014 documented as of this encounter (statuses as of 01/10/2024) Medications Medication Sig Dispensed Refills Start Date [...] 1 Tablet by mouth every evening. Active [place]-3 Fatty Acids (ULTRA OMEGA 3) 952 MG [...] bedtime. Active Eliquis 2.5 MG Oral Tablet (Apixaban)Indicatio ns:Paroxysmal atrial fibrillation (HCC) TAKE ONE TABLET BY MOUTH EVERY MORNING AND 1 TABLET BEFORE BEDTIME 180 Tablet 11/17/2023 Active Nitroglycerin 0.4 MG Sublingual Tablet Sublingual (Nitrostat)Indicati ons:Atherosclerosis of [place] coronary artery of [place] heart without angina pectoris Place 1 Tablet [...] as of this encounter (statuses as of 01/10/2024) Active Problems Problem Noted Date Diagnosed Date [...] bypass graft 10/15/19 08 Coronary atherosclerosis of [place] coronary celina ry 10/15/2007 BPH without obstruction/lower urinary tract symp toms 09/08/2005 Other allergic rhinitis 02/28/2001 Overview: ICD-10 update of inactive term Hastings's esophagus with high grade dysplasia Overview: Hastings's esophagus: egd by Dr Grant () f/u EGD 2001- neg per pt Cyst of kidney, acquired Overview: followed at [place] documented as of this encounter (statuses as of 01/10/2024) Resolved Problems Problem Noted Date Diagnosed Date [...] 3.4 by CTA 08/09/2012 [employer] Other*[id number] 03/08/2011 05/24/2016 Shortness of breath 02/22/2011 12/09/19 [...] as of this encounter (statuses as of 01/10/2024) Immunizations Name Administration Dates Next Due COVID-19 mRNA, LNP-s, No Pre serve, 2-Dose Series (Moderna) 06/10/2020,05/13/2020 COVID-19, LNP-s, No Preserve , Adiel-sucrose, Ages 12+ (Amonix) 12/06/2021 COVID-19, MRNA-LNP, 23-24, P F, 31 [...] Preserve, IM 01/18/2017,02/24/2016,03/04/2015 Seasonal Influenza, Trivalen t, (IIV3), with Preserv, (Fluzone) 02/05/2014,03/05/2013,02/06/2012,02/01,01/06/2010,03/23/2009,03/05/2008 ,02/13/2007,01/20/2006 Seasonal Influenza, Trivalen t, Adjuvanted, 65+ YRS, [...] Telephone Encounter - Nathalia Chavez OSA - 01/10/2024 12:06 PM EDT Spoke with patient gave his the 02/21 spot and he already has an appt made for May * Telephone Encounter - Katie Sung RN - 01/10/2024 11:58 AM EDT Schedulers: please call this patient and change his February appointment with his 's April appointment as he requested. Thank you. * Telephone Encounter - Gala Pablo MD - 01/08/2024 9:58 PM EDT Very anxious that his cannot see me until April. Would like her to have his upcoming February appt. Would you see if you can facilitate this appt switch? documented in this encounter Plan of Treatment Upcoming Encounters Date Type Department Care Team (Late st Contact Info) Description 02/22/2024 11:00 AM EST Laboratory Laboratory, [facility] [address] [place] [phone] [facility] [address] [place] [address] 03/04/2024 11:20 AM EST Office Visit Dermatology, J[facility] Greco [address] [place] [address] Wanda Mooney PA-C [address] [place] [address] 03/18/2024 3:00 PM EST Office Visit Nephrology, [facility] Arteaga [address] [place] [address] Ryan Issa MD 200 [facility] [place] [address] 08/21/2024 12:20 PM EDT Office Visit Family Practice [facility] [address] [place] [address] Gala Pablo MD 132 [facility] [place] [address] Health Maintenance Due Date Last Done Comments Adult Wellness Visit 08/20/2023 08/19/2022, 04/02/20 21 Albumin/Creatinine Ratio 09/07/2023 023, 09/21/2021, 09/10/2013, Additional history exists GFR 11/29/2023 05/31/2023, 03/18, 03/02/2023, Additional history exists Influenza Vaccine (FLU shot) (#1) 2023 12/28/2022, 02/03/2022, 03/02/2021, Additional history exists CKD PHOS USE SMARTSET 89366 02/28/202402/15, 12/13/2022, 10/11/2021, Additional history exists CKD HGB USE SMARTSET 21551 04/13/202404/13, 04/13/2023, 03/02/2023, Additional history exists Depression [...] filedocumented as of this encounter Care Teams Casting Coordinator Relationship Specialty Start Date End Date Gala Pablo MD [address] [place] [address] PCP - General Internal Medicine 05/18/23 documented as of this encounter
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
--- OUTSIDE RECORDS SUMMARY | 2024-02-12 22:50 | External Medical Summary | Summary of Care ---
Author Name Unknown Organization [facility] Address [address] [facility] [place] [address] Phone [phone] Care Team Providers Care Workers Compensation Administrator Name Role Phone Gala Pablo MD Primary Care Provider Reason for Visit * Reason Onset Date Comments Advice 01/06/2024 patient with his tory of quadruple bypass and open heart surgery. FYI 01/06/2024 Encounter Details Date Type Department Care Team (Late st Contact Info) Description 01/06/2024 Telephone Family Practice [facility] [address] [place] [address] Gala Pablo MD [address] [place] [address] Advice (patient with history of quadruple ... Allergies Active Allergy Reactions Criticality Noted Date [...] 1 Tablet by mouth every evening. Active [place]-3 Fatty Acids (ULTRA OMEGA 3) 952 MG [...] MG Sublingual Tablet Sublingual (Nitrostat)Indicati ons:Atherosclerosis of [place] coronary artery of [place] heart without angina pectoris Place 1 Tablet [...] bypass graft 10/15/19 08 Coronary atherosclerosis of [place] coronary celina ry 10/15/2007 BPH without obstruction/lower urinary tract symp toms 09/08/2005 Other allergic rhinitis 02/28/2001 Overview: ICD-10 update of inactive term Hastings's esophagus with high grade dysplasia Overview: Hastings's esophagus: egd by Dr Grant () f/u EGD 2001- per pt Cyst of kidney, acquired Overview: followed at [place] documented as of this encounter (statuses as [...] 3.4 by CTA 08/09/2012 [employer] Other*[id number] 03/08/2011 05/24/2016 Shortness of breath 02/22/2011 12/09/19 [...] MCG/0.3 mL, 12 YRS AND ABOVE, IM (Patients Know Best-Comirnaty) 03/14/2023 COVID-19, mRNA, LNP-s, PF, B ooster, [...] Unspecified Formulation 12/21/2018,01/29/2018,01/18/2017,1004/2016,02/24/2016,01/06/2010,03/23/20 09,03/05/2008,02/13/2007,01/20/2006,1 06/01/2004,03/20/2003,04/03/2002,04/05,03/22/2000 Seasonal Influenza, PF, 6 M & above, IM , (FluLaval or Fluzone) 01/29/2018 Seasonal Influenza, Quadriva lent Hd (Fluzone Hd) 12/28/2022,03/02/2021 Seasonal Influenza, Quadriva lent, No Preserve, IM 01/18/2017,02/24/2016,03/04/2015 Seasonal Influenza, Trivalen t, (IIV3), with Preserv, (Fluzone) 02/05/2014,03/05/2013,02/06/2012,01/15,01/06/2010,03/23/2009,03/05/20 08,02/13/2007,01/20/2006,03/31/2005,1 05/21/2002,04/03/2002,04/05/2001,03/2209/16/2001 Seasonal Influenza, Trivalen t, Adjuvanted, 65+ YRS, [...] 05/26/2023 Does the household have a re lar [...] Pablo MD - 01/07/2024 11:01 AM EDT Noted. Has 40min appt with me tomorrow. * Telephone Encounter - Nano Perry OSA - 01/06/2024 1:32 PM EDT Patient called to re-verify crisis number. * Telephone Encounter - Nathalia Priest LPN - 01/06/2024 1:25 PM EDT Patient refused to answer any questions below stating, "I won't discuss this over the phone". I apologized and told patient unfortunately we do not have any availability today. I offered to give him the number to crisis which he took. I also offered to see if there was any availability next week with Dr. Pablo. I got him scheduled on Monday. He asked if his could come along. I told him he was welcome to bring a visitor to his appointment but his would not be seen as a patient by Dr. Pablo on Monday. Patient verbalized understanding. * Telephone Encounter - Nathalia Priest LPN - 01/06/2024 1:20 PM EDT Patient calling with c/o anxiety: Symptoms developed: New or history of anxiety: If the patient has a hx of anxiety, is it worsening? Feeling restless, nervous, or fearful: Anger or irritability: Concentration problems: Appetite or weight changes: Sleep disturbances: Palpitations or heart racing: Chest pain: SOB/hyperventilating: Hot flashes/sweating: Any changes in life circumstances or triggering events: Any current treatment: If so, what are they being treat with: Any recent med changes: Has the patient seen/seeing a psychologist, psychiatrist and/or therapist: Does the patient have any thoughts of harming themselves or others: If so, do they have a plan: *Always provide the phone number for Crisis ([phone] or [phone]). Inform patient they can text [phone] any time* *Always provide the phone number for Crisis ([phone] or [phone]). Inform patient they can text [phone] any time* * Telephone Encounter - Donna Valerio OSA - 01/06/2024 1:03 PM EDT Patient calling back states he's having a lot of anxiety right now no other symptoms but demands beseen in person today. He can't wait 24 hrs for someone to call him back. Patient is not having any other symptoms.He's complaining no one has called him since the last message and there's going to willy lot of traffic because of a football so he wants to leave soon to be seen at the office. * Telephone Encounter - Lori Marie OSA - 01/06/2024 11:46 AM EDT No Appointments Available Patient wants to be seeing today, Patient is having anxiety crisis, patient with history of quadruple bypass and open heart surgery. Patient declined appointments?: No What Visit Type is needed? Acute If Acute Visit Type is needed, were surrounding clinics offered to patient (Yes/No)? Yes Was patient offered appointments with other available providers (Yes/No)? Yes See Call Details? (Yes or No): Yes documented in this encounter Plan of Treatment Upcoming Encounters Date Type Department Care Team (Late st Contact Info) Description 01/08/2024 2:40 PM EDT Office Visit [facility] [address] [address] Gala Pablo MD [address] [place] [address] 02/22/2024 10:20 AM EST Office Visit [facility] [address] [address] Gala Pablo MD [address] [place] [address] 02/22/2024 11:00 AM EST Laboratory Laboratory, Health system [address] [phone] [facility] [address] [address] 03/04/2024 11:20 AM EST Office Visit Dermatology, Elba LopezJf [address] [place] [address] Wanda Mooney PA-C [address] [address] 03/18/2024 3:00 PM EST Office Visit Nephrology, Deniz Arteaga [address] [facility] [place] [address] Ryan Issa MD [address] [facility] [place] [address] Health Maintenance Due Date Last Done Comments Adult Wellness Visit 08/20/2023 08/19/2022, 04/02/20 21 Albumin/Creatinine Ratio 09/07/2023 023, 09/21/2021, 09/10/2013, Additional history exists GFR 11/29/2023 05/31/2023, 03/18, 03/02/2023, Additional history exists Influenza Vaccine (FLU shot) (#1) 2023 12/28/2022, 02/03/2022, 03/02/2021, Additional history exists CKD PHOS USE SMARTSET 88170 02/28/202402/15, 12/13/2022, 10/11/2021, Additional history exists CKD HGB USE SMARTSET 77747 04/13/202404/13, 04/13/2023, 03/02/2023, Additional history exists Depression [...] filedocumented as of this encounter Care Teams Workers Compensation Administrator Relationship Specialty Start Date End Date Gala Pablo MD [address] [place] [address] PCP - General Internal Medicine 05/18/23 documented as of this encounter
--- OUTSIDE RECORDS SUMMARY | 2024-02-12 22:50 | External Medical Summary | Summary of Care ---
Author Name Unknown Organization [facility] Address [address] [facility] [place] [address] Phone [phone] Care Team Providers Care Wool Carder Name Role Phone Gala Pablo MD Primary Care Provider Reason for Visit * Reason Comments Hospital Follow-Up [facility] ER 01/05 anxiety Encounter Details Date Type Department Care Team (Late st Contact Info) Description 01/08/2024 2:40 PM EDT Office Visit Family Practice [facility] [address] [address] Gala Pablo MD [address] [place] [address] Caregiver stress*; Hypothyroidism due to acquired atrophy of thyroid Allergies Active Allergy Reactions Criticality Noted Date Comments Cat Dander 09/25/2014 Dog Dander 09/25/2014 Dust 09/23/2015 Pollen 09/25/2014 Losartan Other (Please comment) 03/02/2021 Hyperkalemia Morphine Nausea/vomiting Low 12/13/2017 Ragweed 09/25/2014 documented as of this encounter (statuses as of 01/08/2024) Medications Medication Sig Dispensed Refills Start Date [...] 1 Tablet by mouth every evening. Active [place]-3 Fatty Acids (ULTRA OMEGA 3) 952 MG [...] bedtime. Active Eliquis 2.5 MG Oral Tablet (Apixaban)Indicat ions:Paroxysmal atrial fibrillation (HCC) TAKE ONE TABLET BY MOUTH EVERY MORNING AND 1 TABLET BEFORE BEDTIME 180 Tablet 11/17/2023 Active Nitroglycerin 0.4 MG Sublingual Tablet Sublingual (Nitrostat)Indica tions:Atheroscler osis of [place] coronary artery of [place] heart without angina pectoris Place 1 Tablet [...] other meds). 30 Tablet 11 01/08/2024 Active Vitamin D 25 MCG (1000 UT) Oral Tablet Take 2 Tablets by mouth daily. 09/07/2021 Discontinue d(Medicatio n List Clean Up) documented as of this encounter (statuses as of 01/08/2024) Active Problems Problem Noted Date Diagnosed Date [...] bypass graft 10/15/19 08 Coronary atherosclerosis of [place] coronary celina ry 10/15/2007 BPH without obstruction/lower urinary tract symp toms 09/08/2005 Other allergic rhinitis 02/28/2001 Overview: ICD-10 update of inactive term Hastings's esophagus with high grade dysplasia Overview: Hastings's esophagus: egd by Dr Grant () f/u EGD 2001- neg per pt Cyst of kidney, acquired Overview: followed at [place] documented as of this encounter (statuses as of 01/08/2024) Resolved Problems Problem Noted Date Diagnosed Date [...] 3.4 by CTA 08/09/2012 [employer] Other*[id number] 03/08/2011 05/24/2016 Shortness of breath 02/22/2011 12/09/19 [...] as of this encounter (statuses as of 01/08/2024) Immunizations Name Administration Dates Next Due COVID-19 [...] No 05/26/2023 Does the household have a [facility] source of income? (Household - for ages [...] Sign Reading Time Taken Comments Blood Pressure 138/86 01/08/2024 2:53 PM EDT Pulse 54 01/08/2024 2:53 PM EDT Temperature - - Respiratory Rate - - Oxygen Saturation 95% 01/08/2024 2:53 PM EDT Inhaled Oxygen Concentration - - Weight 85.5 kg (188 lb 9.6 oz) 01/08/2024 2:53 P M EDT Height - - Body Mass Index 26.11 09/07/2023 10:13 AM EDT documented in this encounter Patient Instructions * Patient Instructions* Gala Pablo MD - 01/08/2024 3:30 PM EDT Next Steps: -- we are trying a slightly lower dose of levothyroxine (137mcg/day) to see if you feel less physically jittery. You should know if you feel better in 2-4 weeks. -- If you feel good on 137 mcg/day, ask for a refill and we can send to [place]. -- If instead you feel cold, constipated and tired, we can go back to 150mcg/day. documented in this encounter Progress Notes * Gala Pablo MD - 01/08/2024 2:55 PM EDT Images from the original note were not included. History of Present Illness Hubert Persaud is a 83 year old male that presents for Hospital Follow-Up ([facility] 01/05 anxiety) Struggling with how to manage 's cognitive challenges and how they impact their life together. Sons do not live nearby - one stays with them 2 nights/wk when he works in [place]. [place] so overwhelmed he took himself to ED over weekend. Reviewed records - normal EKG, CXR, CBC, CMP. TSH 1.2. Wasgiven time/day of monthly support group hosted [place] [facility] [place] caregivers of people with alzheimers/dementia. Feels hopeful about this. Wants me to impress upon that if shecan't see what's happening and keeps stressing him out he will have a heart attack. Feels that if she gets formal testing then that data will help him have renewed patience for her. Open to idea of individual counseling but will be leaving for [place] for 3-4 weeks in a couple days. Not ready for medications to help anxiety. Current medications and allergies reviewed. Past medical history and problem list reviewed. Physical Exam Vitals: 01/08/24 1453 Pulse: 54 SpO2: 95% BP: 138/86 Wt Readings from Last 3 Encounters: 01/08/24 85.5 kg (188 lb 9.6 oz) 09/07/23 86.1 kg (189 lb 12.8 oz) 08/18/23 85.7 kg (189 lb) Pulse Readings from Last 3 Encounters: 01/08/24 54 09/15/23 56 09/07/23 63 BP Readings from Last 3 Encounters: 01/08/24 138/86 09/07/23 120/86 08/18/23 120/83 Physical Exam Vitals and nursing note reviewed. Constitutional: Appearance: Normal appearance. He is not ill-appearing. Neurological: Mental Status: He is alert. Psychiatric: Behavior: Behavior normal. Comments: Anxious, distressed I have reviewed the following results: CMP, TSH, and CBC Assessment and Plan Caregiver stress Is already connected with case management. He would like to give his upcoming appointment with me to his so she can see me sooner than April. I will see if we can arrange. Encouraged him to go to support group, consider individual therapy when he returns. We talked about my role as his physician and his 's physician. I can offer her an in-office cognitive screen as I would any patient, but you can't force neuropsychology testing. Encouraged him to keep engaging sons as much as possible. I am happy to Rx sertraline if/when he is interested. Hypothyroidism due to acquired atrophy of thyroid TSH is lower than typical for someone his age. We will try lower dose to see if that lowers physical agitation sx. Patient Instructions Next Steps: -- we are trying a slightly lower dose of levothyroxine (137mcg/day) to see if you feel less physically jittery. You should know if you feel better in 2-4 weeks. -- If you feel good on 137 mcg/day, ask for a refill and we can send to [place]. -- If instead you feel cold, constipated and tired, we can go back to 150mcg/day. Wrap-Up Follow Up: Return in about 8 months (around 08/24/2024) for Return with Samy. | For: Return with Samy | Check-out note: Keep February appt for now. Time: I spent a total of 40-54 minutes (exact time 42 mins) on the date of service in preparation, delivery, and documentation of the care provided to Hubert Persaud excluding any time spent in the performance of separately billed services. documented in this encounter Plan of Treatment Upcoming Encounters Date Type Department Care Team (Late st Contact Info) Description 02/22/2024 10:20 AM EST Office Visit [facility] [address] [place] [address] Gala Pablo MD [address] [address] 02/22/2024 11:00 AM EST Laboratory Laboratory, [facility] [address] [phone] [facility] [address] [place] [address] 03/04/2024 11:20 AM EST Office Visit Dermatology, Jf Greco [address] [address] Wanda Mooney PA-C [address] [address] 03/18/2024 3:00 PM EST Office Visit Nephrology, [facility] [address] [facility] [place] [address] Ryan Issa MD [address] [facility] [place] [address] 08/21/2024 12:20 PM EDT Office Visit [facility] [address] [address] Gala Pablo MD [address] [address] Health Maintenance Due Date Last Done Comments Adult Wellness Visit 08/20/2023 08/19/2022, 04/02/20 21 Albumin/Creatinine Ratio 09/07/2023 023, 09/21/2021, 09/10/2013, Additional history exists GFR 11/29/2023 05/31/2023, 03/18, 03/02/2023, Additional history exists Influenza Vaccine (FLU shot) (#1) 2023 12/28/2022, 02/03/2022, 03/02/2021, Additional history exists CKD PHOS USE SMARTSET 52757 02/28/202402/15, 12/13/2022, 10/11/2021, Additional history exists CKD HGB USE SMARTSET 92377 04/13/202404/13, 04/13/2023, 03/02/2023, Additional history exists Depression [...] as of this encounter Visit Diagnoses Diagnosis Caregiver stress- Primary Other health problem within the family Hypothyroidism due to acquired atrophy of thyroid documented in this encounter Care Teams Wool Carder Relationship Specialty Start Date End Date Gala Pablo MD [address] [address] PCP - General Internal Medicine 05/18/23 documented as of this encounter"
[2024-02-12] MEDS ORDERED: HYDROmorphone INJ 0.5 MG/0.5 ML SYR IV PRN ×2 (23:28)
[2024-02-12] MEDS ORDERED: NITROGLYCERIN SL 0.4 MG/TAB TAB SL PRN (23:28)
[2024-02-12] MEDS ORDERED: ACETAMINOPHEN 325 MG TAB PO PRN (23:28)
[2024-02-12] MEDS: D5W AND NSS 1,000 ML IV SCH (23:42)
[2024-02-13] MEDS: LEVOTHYROXINE SODIUM 150 MCG TABLET PO SCH (05:35)
[2024-02-13 06:38] LABS: Basophils # (auto) 0.11 K/uL (0.00-0.20); Basophils % (auto) 2.1 %; Eosinophils # (auto) 0.25 K/uL (0.00-0.50); Eosinophils % (auto) 4.9 %; Hematocrit (blood only) 41.5 % (42.0-52.0); Hemoglobin 14.3 g/dl (14.0-18.0); Immature Granulocytes # (auto) 0.01 K/uL (0.01-0.20); Immature Granulocytes % (auto) 0.2 %; Lymphocytes # (auto) 1.53 K/uL (1.20-3.40); Lymphocytes % (auto) 29.7 %; Mean Corpuscular Hgb Conc 34.5 g/dL (32.0-36.0); Mean Corpuscular Volume 98.6 fL (80.0-100.0); Mean Platelet Volume 11.7 fL (9.4-12.4); Monocytes # (auto) 0.66 K/uL (0.11-0.59); Monocytes % (auto) 12.8 %; Neutrophils # (auto) 2.59 K/uL (1.40-6.50); Neutrophils % (auto) 50.3 %; Platelet Count 159 K/uL (130-400); RDW Coefficient of Variation 13.4 % (11.5-14.5); RDW Standard Deviation 48.5 fL (36.4-46.3); Red Blood Count 4.21 M/uL (4.70-6.10); White Blood Count 5.15 K/ul (4.8-10.8)
[2024-02-13 06:54] LABS: BUN Creatinine Ratio 15.7 (10-20); Creatinine Clr Calc Pharmacy 45.3 ml/min; Magnesium 1.7 mg/dl (1.7-2.4); Potassium 3.9 mmol/L (3.5-5.1)
[2024-02-13] MEDS: carvediloL 12.5 MG TAB PO SCH (07:57)
[2024-02-13] MEDS ORDERED: INFLUENZA VACC TS2024-25(65y+)/PF (IIV3) 0.5mL Syr IM ONE (08:00)
[2024-02-13] MEDS: PANTOprazole 40 MG TAB PO SCH (08:14)
[2024-02-13] MEDS: ATORVASTATIN 20 MG TAB PO SCH (08:14)
[2024-02-13] MEDS: ASPIRIN 81 MG ECTAB PO SCH (08:14)
[2024-02-13] MEDS: allopurinoL 100 MG TAB PO SCH (08:14)
[2024-02-13 08:19] LABS: Estimated Average Glucose 128 mg/dl; Hemoglobin A1C 6.1 % (4.5-5.6)
--- NOTE | 2024-02-13 09:17 | Surgery Progress Note ---
Date of Service February 13, 2024 Assessment & Plan (1) Left inguinal hernia: Plan: Pt here w/ L groin pain, found to have + UTI and Left inguinal hernia on CT scan containing large bowel No ischemic or obstructive signs at this time Hernia is becoming more symptomatic for him over the last several days, pops out and is worse with walking On eliquis for Afib, would continue to hold this for upcoming procedures Will discuss with surgeon surgical planning possibly tomorrow vs ; will update pt and make NPO accordingly once we place pt on the schedule May have diet today Patient seen. The hernia is primarily reduced although quite palpable. When he stands or ambulates it becomes reincarcerated. Therefore the hernia should be repaired this admission. We will give him a day or 2 to allow the Eliquis to washout as well as treat his UTI. I will discuss with Dr. Jacquelyn Anders regarding getting him on one of our schedules either tomorrow or for repair of his left inguinal hernia. Admission and Anticipated Discharge Date Admission Date: February 12, 2024 Subjective Patient with no major complaints this AM. Says his left groin hernia has been present for several weeks and has been having pain with it since monday. Reports it is manageable and does not bulge out much when he is lying down. Pops out when he walks Physical Exam Physical Exam: awake, no distress Gastrointestinal (Abdomen): Percussion/Palpation: abdomen soft; abdomen nontender L groin not overly tender, soft and appears reduced while lying down Results & Data Vital Signs (Past 12 Hours) Vital Signs Temp Pulse Pulse Resp BP BP Pulse Ox 02/13/24 07:08 98.2 F 58 L 19 129/77 96 02/13/24 03:11 98.4 F 54 L 19 138/81 97 02/13/24 00:16 59 L 02/12/24 23:28 59 L 14 151/80 H 97 02/12/24 23:28 02/12/24 23:20 98.1 F 59 L 14 151/80 H 97 02/12/24 22:50 70 15 115/63 02/12/24 22:00 77 20 Pulse Ox O2 Del Method O2 Del Method 02/13/24 07:08 Room Air 02/13/24 03:11 Room Air 02/13/24 00:16 10/28/24 23:28 Room Air 02/12/24 23:28 97 Room Air 02/12/24 23:20 Room Air 02/12/24 22:50 02/12/24 22:00 PG Care Time/CCT Total # of Minutes Spent Total Time Spent with Patient: Total time spent is greater than 50% in coordination of care (as documented) at patient's floor/unit and/or counseling patient: Coding Level of Care Code 53857 SUB INP/OBS CARE 05/11MIN Diagnoses Left inguinal hernia K40.90
--- NOTE | 2024-02-13 10:49 | Hospitalist Progress Note ---
Date of Service February 13, 2024 Assessment & Plan (1) Left inguinal hernia: Plan: 83-year-old male with past medical history significant for dyslipidemia, prediabetes, hypothyroidism, mild obstructive sleep apnea, solitary lung nodule, history of CAD status post CABG, aortic root enlargement, bioprosthetic aortic valve replacement, paroxysmal atrial fibrillation, hypertension, asymptomatic bilateral carotid artery stenosis, infrarenal abdominal aortic aneurysm, history of cardiomyopathy, Hastings's esophagus with high-grade dysplasia ,BPH, neurogenic bladder, CKD stage III, gout arthropathy, sensorineural hearing loss of both ears, adverse reaction to angiotensin II receptor presents with left abdominal pain and left inguinal hernia. Left inguinal hernia Comes with abdominal pain CT scan showing large loop of bowel in the left inguinal hernia. No wall thickening to suggest ischemia ER and surgery attempted reduction in ER Discussed with Surgery team. They are planning surgery on AM They are still planning on modality of hernia repair /extensive Considering cardiac history, surgeon asking about possible cardiac preop clearance. Cardiology consulted Acute UTI Patient straight caths at home for Neurogenic bladder UA suggestive of possible UTI Continue IV ceftriaxone Follow up urine culture Prediabetes HbA1c levels 6.1 Needs more education History of CAD status post CABG Bilateral moderate carotid disease History of severe aortic regurgitation status post bioprosthetic aortic valve replacement with bilateral maze and ISAÍAS ligation Paroxysmal atrial fibrillation Hypertension On aspirin, statin and Coreg Eliquis on hold as above Considering patient's VTE risk, will start heparin gtt for now. Plan to hold hep gtt at midnight before surgery on Moderate aortic root enlargement Abdominal aortic aneurysm 3.5 to 3.5 cm in January 2023 Follow-up Hastings's esophagus with high-grade dysplasia Status post 6 history of esophagectomy with gastric pull-up in early On omeprazole Hypothyroidism On Synthyroid Gout On allopurinol CKD stage III Baseline creatinine 1.3-1.4 Creatinine 1.34 today Monitor DVT prophylaxis- Eliquis on hold. Will start hep gtt as above Full code. I spent a total of 55 minutes coordinating, documenting and providing care for this patient excluding time spent in performance of separately billed services Admission and Anticipated Discharge Date Admission Date: February 12, 2024 Subjective Patient seen and examined Reports nausea this AM Reports left inguinal hernia that is painful and increases in size when he is walking Denied abd pain, diarrhea, constipation, diarrhea Patient has neurogenic bladder and straight caths at home Physical Exam Constitutional: + well hydrated; no acute distress Eyes: PERRL, conjunctivae normal, anicteric sclerae ENMT: external ear and nose normal, oropharynx normal Respiratory: normal respiratory effort, lungs clear to auscultation Cardiovascular: Rate/Rhythm: regular rate and regular rhythm Gastrointestinal (Abdomen): normal bowel sounds, soft, nontender, no hepatosplenomegaly Left groin hernia appear reduced but palpable while supine Musculoskeletal: no cyanosis or clubbing, extremities motor strength 5/5 Neurologic: PERRL, EOMI, accommodation nl, no face palsy, no dysarthria Psychiatric: A+Ox3, euthymic affect Genitourinary: Chambers in situ Results & Data Results & Data Vital Signs (Past 12 Hours) Vital Signs Temp Pulse Pulse Resp BP BP Pulse Ox 02/13/24 07:08 36.8 C 58 L 19 129/77 96 02/13/24 03:11 36.9 C 54 L 19 138/81 97 02/13/24 00:16 59 L 02/12/24 23:28 59 L 14 151/80 H 97 02/12/24 23:28 02/12/24 23:20 36.7 C 59 L 14 151/80 H 97 02/12/24 22:50 70 15 115/63 Pulse Ox O2 Del Method O2 Del Method 02/13/24 07:08 Room Air 02/13/24 03:11 Room Air 02/13/24 00:16 02/12/24 23:28 Room Air 02/12/24 23:28 97 Room Air 02/12/24 23:20 Room Air 02/12/24 22:50 Laboratory Results Abnormal lab results 02/12/24 02/12/24 02/13/24 Range/Units 14:46 16:47 06:23 RBC 4.67 L 4.21 L (4.70-6.10) M/uL Hct 41.5 L (42.0-52.0) % RDW Std Deviation 49.0 H 48.5 H (36.4-46.3) fL [place] # (Auto) 0.60 H 0.66 H (0.11-0.59) K/uL Chloride 108 H (98-107) mmol/L Glucose 106 H 119 H (70-99(Fasting)) mg/dl Hemoglobin A1c 6.1 H (4.5-5.6) % Urine Appearance Cloudy A (Clear) Urine Protein 1+ H (Negative) Urine Blood Trace H (Negative) Ur Leukocyte Esterase 3+ H (Negative) Urine WBC (Auto) >50 H (0-5) /hpf Urine RBC (Auto) 3-5 H (0-2) /hpf Urine Bacteria (Auto) 4+ H (None Seen) Urine Sperm Present A (None Prsent)
[2024-02-13] MEDS: ONDANSETRON INJ 2 MG/ML 2 ML VIAL IV PRN (11:13)
--- NOTE | 2024-02-13 11:17 | Electrocardiogram Report ---
Test Reason : Blood Pressure : */* mmHG Vent. Rate : 62 BPM Atrial Rate : 62 BPM P-R Int : 204 ms QRS Dur : 118 ms QT Int : 444 ms P-R-T Axes : 83 36 6 degrees QTcB Int : 450 ms Sinus rhythm with occasional Premature ventricular complexes Left ventricular hypertrophy Nonspecific ST abnormality Abnormal ECG When compared with ECG of 02-Mar-2023 17:07, Premature ventricular complexes are now Present Nonspecific T wave abnormality, worse in Inferior leads Confirmed by Bala Pierre ([id number] on 02/13/2024 11:17:27 AM Referred By: Nacho Ho Confirmed By: Bala Pierre
--- NOTE | 2024-02-13 12:05 | Cardiology Consultation ---
Date of Consultation February 13, 2024 Assessment & Plan (1) Preoperative cardiovascular examination: (2) Left inguinal hernia: (3) Acute UTI (urinary tract infection): * Patient describes stable cardiac signs and symptoms. Repeat echocardiogram performed today reveals stable findings. Denies any recent symptoms suggestive of angina, unstable arrhythmia, or congestive heart failure. * Patient is currently on Rocephin with urinalysis yielding E. coli on 02/12/2024. Currently on IV Rocephin. * Patient stable from a cardiac perspective to proceed with inguinal hernia surgery without further cardiac testing. * Eliquis has been placed on hold and he is on a heparin bridge which can be discontinued in advance of surgery. History of Present Illness Attending Physician: Breanna Locke MD History of Present Illness Mr Morales is an Looks like this 83-year-old male seen in cardiology consultation per the request of Dr. Locke For preoperative evaluation prior to proposed left inguinal hernia repair. Patient describes that he started feeling a bulge in his left groin about 6 weeks ago. Last week on Monday he started having progressive pain with walking. He presented to the emergency department and has been found to have a left inguinal hernia with a loop of large bowel in the left inguinal canal on CT. He denies any change in his cardiac status in the last few months. Denies chest pain, shortness of breath, or change in activity tolerance. Cardiac History: 1. Redo sternotomy,bio AVR (#29 Inspiris), bi atrial MAZE, ISAÍAS ligation on 02/07/23 at [facility] 2.CAD S/P CABG in 2007. Repeat cath Jan 2023 - patent GIFFORD-LAD, SVG-Ramus, SVG- RCA. Occluded SVG-OM. Med management recommended 3.Previously persistent afib, now returned to NSR post op AVR. 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 AAA 3.58 x 3.56 per [facility] in 01/2023- plan to repeat in 6-12 months. Preop cardiac catheterization at [facility] 01/26/23 before surgical AVR: -Obstructive [place] coronary artery disease -Patent GIFFORD-LAD, SVG-Ramus, SVG-RCA -Occluded SVG-OM (chronic finding). Social History: to his spouse Pamela of 60 years. 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 Allergies Allergy/AdvReac Type Severity Reaction Status Date / Time ragweed pollen Allergy Intermediate Sneezing Verified 09/06/23 16:01 animal dander Allergy Mild itchy Verified 09/06/23 16:01 house dust Allergy Mild Sneezing Verified 09/06/23 16:01 morphine Allergy Mild ITCHING, Verified 09/06/23 16:01 severe N/V pollen extracts Allergy Mild Sneezing Verified 09/06/23 16:01 losartan AdvReac hyperkalemi Verified 09/06/23 16:01 a Home Medications Medication Instructions Recorded Confirmed Type allopurinol 100 mg tablet 100 mg PO BID 02/12/24 02/12/24 History amoxicillin 500 mg capsule 2,000 mg PO UD 02/12/24 02/12/24 History apixaban 2.5 mg tablet (Eliquis) 2.5 mg PO BID 02/12/24 02/12/24 History aspirin 81 mg tablet,delayed 81 mg PO DAILY 02/12/24 02/12/24 History release atorvastatin 20 mg tablet 20 mg PO DAILY 02/12/24 02/12/24 History carvedilol 12.5 mg tablet 12.5 mg PO BID 02/12/24 02/12/24 History levothyroxine 150 mcg tablet 150 mcg PO DAILY 02/12/24 02/12/24 History omeprazole 40 mg capsule,delayed 40 mg PO DAILY 02/12/24 02/12/24 History release Patient History Medical History Abdominal aortic ectasia Per aortic duplex 10/10/19= There is evidence of a 3.5 cm x 3.5 cm abdominal aortic aneurysm. Color Doppler imaging demonstrates flow consistent with a patent lumen at and distal to the aortic aneurysm. Esophageal cancer Around 2006 or 2008- s/p esophagectomy- no chemo or XRT Hx of myocardial infarction 2007 BPH (benign prostatic hyperplasia) GERD (gastroesophageal reflux disease) Well controlled and stable Hearing deficit Sleep apnea can no longer tolerate device Surgical History History of cardiac cath X 1 SINCE 2007-NO STENTS PLACED-F/U DR JOSE LUIS BENITEZ last visit 03/2022 History of left cataract extraction 10/22/2019 History of right cataract surgery 10/08/2019. 2mg versed. History of colonoscopy History of esophagogastroduodenoscopy (EGD) Hx of heart bypass surgery 4 vessels - 2007- done in [place], [place] Hx of transurethral resection of prostate x3 History of appendectomy Hx of esophagectomy d/t esophageal cancer (~2006) Family History Father Family history of diabetes mellitus Other No family history of adverse response to anesthesia Social History Smoking Status: Former smoker Tobacco Type: Cigarettes Cigarettes Per Day: QUIT ~40 YRS AGO; Smoking End Date: 35 years ago; Second Hand Exposure: No; Do You Dip or Chew Tobacco: No; Hx Alcohol Use: Yes Alcohol type: wine Hx Substance Use: No Preferred Language: Ukrainian Communication Ability: Effective Basketball Commentator Required: No Beliefs That Will Affect Care: None Current Living Situation: Spouse Current Living Situation Comment: house current occupation: Retired Other Information That Helps Us Care for You: No Feels Safe at Home: Yes Safety Concerns: Feels Safe At This Time Assistive Devices: Glasses, Hearing Aid - Bilateral and Other Assistive Devices Comment: partial lower dentures Review of Systems Review of Systems: All systems reviewed & are unremarkable except as noted in HPI & below Physical Exam Physical Exam: General: no acute distress and stated age Eyes: conjunctiva are pink and non-injected, sclera clear Neck: normal jugular venous pulse, no hepatojugular reflux Chest: normal shape and normal respiratory effort -Midline sternotomy incision well-healed , stable sternum. Lungs: clear to auscultation and percussion Cardiac Exam: - regular heart sounds, no murmurs, rubs, or gallops, no jugular v enous distention Abdomen: abdomen soft, non-tender, no abnormal masses and no hepatosplenomegaly Musculoskeletal: no gait disturbance, no weakness Extremities: no edema and no cyanosis Neuro:awake, conversant, follows commands, no focal motor deficits Psych: appropriate affect and insight. Results & Data Vital Signs (Past 12 Hours) Vital Signs Temp Pulse Pulse Resp BP Pulse Ox O2 Del Method 02/13/24 11:16 36.7 C 71 19 145/75 H 95 Room Air 02/13/24 07:08 36.8 C 58 L 19 129/77 96 Room Air 02/13/24 03:11 36.9 C 54 L 19 138/81 97 Room Air 02/13/24 00:16 59 L Laboratory Results Cardiac Enzymes 02/12/24 Range/Units 14:46 AST 25 (13-39) U/L Coagulation 02/13/24 Range/Units 11:38 PT 11.3 (9.0-12.0) Seconds APTT 27 (21-31) Seconds CBC 02/12/24 02/13/24 Range/Units 14:46 06:23 WBC 6.87 5.15 (4.8-10.8) K/ul RBC 4.67 L 4.21 L (4.70-6.10) M/uL Hgb 15.8 14.3 (14.0-18.0) g/dl Hct 46.3 41.5 L (42.0-52.0) % Plt Count 200 159 (130-400) K/uL Neut # (Auto) 4.32 2.59 (1.40-6.50) K/uL Lymph # (Auto) 1.59 1.53 (1.20-3.40) K/uL [place] # (Auto) 0.60 H 0.66 H (0.11-0.59) K/uL Eos # (Auto) 0.23 0.25 (0.00-0.50) K/uL Baso # (Auto) 0.10 0.11 (0.00-0.20) K/uL Comprehensive Metabolic Panel 02/12/24 02/13/24 Range/Units 14:46 06:23 Sodium 137 139 (136-145) mmol/L Potassium 4.2 3.9 (3.5-5.1) mmol/L Chloride 102 108 H (98-107) mmol/L Carbon Dioxide 28 25 (21-32) mmol/L BUN 23 21 (6-23) mg/dl Creatinine 1.33 1.34 (0.6-1.4) mg/dl Glucose 106 H 119 H (70-99(Fasting)) mg/dl Calcium 10.1 9.0 (8.6-10.3) mg/dl AST 25 (13-39) U/L ALT 15 (7-52) U/L Alkaline Phosphatase 59 (34-104) U/L Total Protein 7.7 (6.0-8.3) gm/dl Albumin 4.5 (3.4-5.0) gm/dl Intake and Output 02/12/24 02/13/24 02/13/24 22:59 06:59 14:59 Intake Total 150 / 150 1413.333 / 1413.333 Output Total 650 / 650 Balance 150 / -500 -650 / -500 1413.333 / 1413.333 Intake: IV 150 / 150 1413.333 / 1413.333 Acetaminophen 1,000 mg In 100 100 / 100 ml @ 400 mls/hr IV NOW STA Rx#: [id number] D5w and Nss 1,000 ml @ 100 mls/ 1413.333 / 1413.333 hr IV .Q10H MIRIAM Rx#:[id number] cefTRIAXone SODIUM 2,000 mg In 50 / 50 50 ml @ 100 mls/hr IV NOW STA Rx#:[id number] Output: Urine Amount (Catheter) 650 / 650 Chambers/Indwelling 650 / 650 Other: Weight 83.7 kg Weight Measurement Method Standing Scale Diagnostic Findings EKG performed 02/12/2024 and interpreted independently: Sinus rhythm at 60 bpm with first-degree AV block, nonspecific ST abnormality in the lateral leads, unchanged compared to previous dating back to February, Summary of transthoracic echocardiogram performed today 02/13/2024: The left ventricular wall motion is normal. Left Ventricular Ejection Fraction = 65-70%. There is a bioprosthetic aortic valve. The prosthetic leaflets are well visualized and are freely mobile. There is no significant prosthetic regurgitation. There is mild mitral regurgitation. There is mild tricuspid regurgitation. Compared to the previous study, no significant change. Summary of CT of the abdomen and pelvis performed 02/12/2024: 1. There is a loop of large bowel in the left inguinal hernia. No wall thickening is seen to suggest ischemia. 2. Cholelithiasis without cholecystitis. 3. Infrarenal aortic aneurysm. 4. Diverticulosis without diverticulitis.
[2024-02-13 12:24] LABS: Partial Thromboplastin Time 27 Seconds (21-31); Prothrombin Time 11.3 Seconds (9.0-12.0)
[2024-02-13] MEDS: HEPARIN SODIUM/DEXTROSE 25,000 UNITS/500 ML BAG IV SCH (12:30)
[2024-02-13] MEDS: Heparin IV Adult Wt-Based Low-Dose *NO* INITIAL Bolus Protocol IV STA (13:16)
[2024-02-13] MEDS: cefTRIAXone SODIUM 2,000 MG/50 ML BAG IV SCH (17:32)
[2024-02-13 18:52] LABS: ANTI-Xa, UFH(UnfractionatedHep 0.26 IU/ml (0.3-0.7)
[2024-02-14 01:34] LABS: ANTI-Xa, UFH(UnfractionatedHep 0.32 IU/ml (0.3-0.7)
[2024-02-14 07:33] LABS: Hematocrit (blood only) 40.4 % (42.0-52.0); Hemoglobin 13.8 g/dl (14.0-18.0); Mean Corpuscular Hemoglobin 33.1 pg (25.0-34.0); Mean Corpuscular Hgb Conc 34.2 g/dL (32.0-36.0); Mean Corpuscular Volume 96.9 fL (80.0-100.0); Mean Platelet Volume 11.8 fL (9.4-12.4); Platelet Count 166 K/uL (130-400); RDW Coefficient of Variation 13.4 % (11.5-14.5); RDW Standard Deviation 48.1 fL (36.4-46.3); Red Blood Count 4.17 M/uL (4.70-6.10); White Blood Count 5.98 K/ul (4.8-10.8)
[2024-02-14 07:52] LABS: Potassium 4.2 mmol/L (3.5-5.1)
[2024-02-14 07:53] LABS: BUN Creatinine Ratio 15.2 (10-20); Calcium 9.2 mg/dl (8.6-10.3); Creatinine Clr Calc Pharmacy 48.5 ml/min; Magnesium 1.6 mg/dl (1.7-2.4); Phosphorus 3.8 mg/dl (2.5-4.9)
--- NOTE | 2024-02-14 09:55 | Cardiology Progress Note ---
Date of Service February 14, 2024 Assessment & Plan (1) Preoperative cardiovascular examination: (2) Left inguinal hernia: (3) Acute UTI (urinary tract infection): Plan: * Patient describes stable cardiac signs and symptoms. * Repeat echocardiogram performed 02/13/24 revealed stable findings with normal LVEF, normal prosthetic AV function. * Denies any recent symptoms suggestive of angina, unstable arrhythmia, or congestive heart failure. * Patient's urine culture yielded E. coli on 02/12/2024. Currently on IV Rocephin. * Patient stable from a cardiac perspective to proceed with inguinal hernia surgery without further cardiac testing. * Eliquis has been placed on hold and he is on a heparin bridge which can be discontinued in advance of surgery. * Case discussed with Dr Tate for the purpose of coordination of care. Admission and Anticipated Discharge Date Admission Date: February 12, 2024 Subjective Patient seen in preoperative evaluation. No groin pain at rest in bed this am. Denies chest pain, SOB, or palpitations. Telemetry reveals SR in the 60s. Physical Exam Constitutional: WD/WN, vitals as above Respiratory: normal respiratory effort, lungs clear to auscultation Cardiovascular: RRR, no murmur, no edema Gastrointestinal (Abdomen): normal bowel sounds, soft, nontender, no hepatosplenomegaly Neurologic: PERRL, EOMI, accommodation nl, no face palsy, no dysarthria Genitourinary: Chambers catheter in place Results & Data Vital Signs (Past 12 Hours) Vital Signs Temp Pulse Resp BP Pulse Ox O2 Del Method 02/14/24 07:15 36.7 C 62 19 113/68 94 Room Air 02/14/24 03:18 36.5 C 76 16 141/84 H 96 Room Air 02/14/24 00:01 36.6 C 62 20 159/88 H 97 Room Air Laboratory Results Abnormal lab results 02/13/24 02/14/24 Range/Units 18:12 07:10 RBC 4.17 L (4.70-6.10) M/uL Hgb 13.8 L (14.0-18.0) g/dl Hct 40.4 L (42.0-52.0) % RDW Std Deviation 48.1 H (36.4-46.3) fL Heparin Anti-Xa, Unfract 0.26 L (0.3-0.7) IU/ml Glucose 101 H (70-99(Fasting)) mg/dl Magnesium 1.6 L (1.7-2.4) mg/dl
--- NOTE | 2024-02-14 10:15 | Surgery Progress Note ---
<Statement entered by Nieves Espinal, DO - 02/14/24 12:41> In speaking with urology, the urologist is not concerned that this is a true acute urinary tract infection containing any substantial bacterial overgrowth. Will culture did reveal E. coli. The recommendation from urology was to initiate treatment in the hospital of what ever cultured if anything and plan to just perform a full course of treatment which should be adequate and of no consequence to perform hernia repair with mesh implantation. Date of Service February 14, 2024 Assessment & Plan (1) Left inguinal hernia: Plan: Pt here w/ left groin pain found to have + left inguinal hernia keeps popping out with ambulating and is bothersome to him. bowel containing on CT scan cardiology cleared patient for surgical interventions curbsided urology, treat UTI (henry sensitive e.coli on micro)and no need for increase in prophylactic dosage as outpatient No concerns with using mesh, therefore we will book patient tomorrow for robotic left inguinal hernia with dr. jeff gomes on hold, currently on heparin gtt with plans to hold it at midnight in anticipation for procedure tomorrow npo at midnight ordered Admission and Anticipated Discharge Date Admission Date: February 12, 2024 Subjective Patient feeling fairly well. Anticipating surgery tomorrow. No obvious complaints. Physical Exam Physical Exam: awake/alert, no distress Gastrointestinal (Abdomen): + l groin hernia Results & Data Vital Signs (Past 12 Hours) Vital Signs Temp Pulse Resp BP Pulse Ox O2 Del Method 02/14/24 07:15 98.1 F 62 19 113/68 94 Room Air 02/14/24 03:18 97.7 F 76 16 141/84 H 96 Room Air 02/14/24 00:01 97.9 F 62 20 159/88 H 97 Room Air PG Care Time/CCT Total # of Minutes Spent Total Time Spent with Patient: Total time spent is greater than 50% in coordination of care (as documented) at patient's floor/unit and/or counseling patient: Coding Level of Care Code 19375 SUB INP/OBS CARE 1/25MIN Diagnoses Left inguinal hernia K40.90
[2024-02-14] MEDS: MAGNESIUM OXIDE 400 MG TAB PO SCH ×2 (10:22→19:30)
--- NOTE | 2024-02-14 13:41 | Hospitalist Progress Note ---
Date of Service February 14, 2024 Assessment & Plan (1) Left inguinal hernia: (2) Acute UTI (urinary tract infection): (3) CKD (chronic kidney disease), stage III: (4) CAD (coronary artery disease): (5) Hypothyroidism: (6) Paroxysmal atrial fibrillation: Plan Patient medically maximized for anticipated inguinal hernia repair tomorrow Communication with cardiology, coordinating discontinuing heparin drip around midnight N.p.o. at midnight Continue Rocephin for treatment of UTI, will complete course here in the hospital Continue other medications as currently prescribed Resume Eliquis postsurgery when coordinated with surgical team. Admission and Anticipated Discharge Date Admission Date: February 12, 2024 Subjective Patient denies any pain. No shortness of breath. Anticipating surgery tomorrow Physical Exam Physical Exam: Constitutional: Alert HEENT: Mucous membranes moist. Lungs: Decreased breath sounds, no wheezes or rails CV: S1-S2, regular, systolic murmur Abdomen: Soft, nontender, nondistended Extremities: No significant edema Neuro: No focal deficits Psych: Cooperative, normal mood Results & Data Results & Data Vital Signs (Past 12 Hours) Vital Signs Temp Pulse Resp BP Pulse Ox O2 Del Method 02/14/24 10:31 36.3 C L 64 16 109/69 Room Air 02/14/24 07:15 36.7 C 62 19 113/68 94 Room Air 02/14/24 03:18 36.5 C 76 16 141/84 H 96 Room Air Diagnostic Findings Reviewed imaging, laboratory and diagnostic studies. Pertinent findings as below. Magnesium 1.6
[2024-02-14] MEDS: HEPARIN STOP ORDER ONE (23:40)
[2024-02-15 07:34] LABS: BUN Creatinine Ratio 17.4 (10-20); Calcium 9.4 mg/dl (8.6-10.3); Magnesium 1.8 mg/dl (1.7-2.4); Potassium 4.4 mmol/L (3.5-5.1)
[2024-02-15 07:42] LABS: ANTI-Xa, UFH(UnfractionatedHep < 0.10 IU/ml (0.3-0.7)
--- NOTE | 2024-02-15 08:51 | History & Physical Bridge Note ---
Date of Service February 15, 2024 History & Physical Bridge Note I have examined the patient, reviewed the History & Physical and in the interval since the performance of the History & Physical I have noted the following changes of clinical significance: pt has remained HD stable. Cardiology has deemed low risk for surgery. Plan for robotic left inguinal hernia repair today.
--- NOTE | 2024-02-15 12:50 | Hospitalist Progress Note ---
Date of Service February 15, 2024 Assessment & Plan (1) Left inguinal hernia: (2) Acute UTI (urinary tract infection): (3) CKD (chronic kidney disease), stage III: (4) CAD (coronary artery disease): (5) Hypothyroidism: (6) Paroxysmal atrial fibrillation: Plan Medically maximized to undergo anticipated inguinal hernia repair today Resume Eliquis when deemed appropriate by surgeon Continue Rocephin for UTI Continue other medications as prescribed Admission and Anticipated Discharge Date Admission Date: February 12, 2024 Subjective Patient anxiously awaiting repair of his hernia. No pain, no chest pain, Physical Exam Physical Exam: Constitutional: Alert, no acute distress HEENT: Mucous membranes moist. Lungs: Clear to auscultation, decreased, no wheezes rales or rhonchi CV: S1-S2, regular, systolic murmur Abdomen: Soft, nontender, nondistended Extremities: No significant edema Neuro: No focal deficits Psych: Cooperative, normal mood Results & Data Results & Data Vital Signs (Past 12 Hours) Vital Signs Temp Pulse Pulse Resp BP Pulse Ox O2 Del Method 02/15/24 10:55 36.5 C 62 19 148/85 H 94 Room Air 02/15/24 07:30 61 02/15/24 07:00 36.9 C 58 L 19 136/79 93 Room Air 02/15/24 03:59 36.6 C 61 16 105/66 90 Room Air Diagnostic Findings Reviewed imaging, laboratory and diagnostic studies. Pertinent findings as below. Electrolytes stable Creatinine 1.38 Glucose 113
[2024-02-15] MEDS ORDERED: ePHEDrine sulfate 50 MG/5 ML SYR ONE (13:50)
[2024-02-15] MEDS ORDERED: PROPOFOL IV EMULSION 10 MG/ML 20 ML VIAL IV ONE (13:53)
[2024-02-15] MEDS ORDERED: LIDOCAINE 2% 2 ML VIAL/AMP(20MG/ML) INFIL ONE (13:53)
[2024-02-15] MEDS ORDERED: SODIUM CHLORIDE 0.9% PF INJ 10 ML VIAL ONE (13:58)
[2024-02-15] MEDS ORDERED: ePHEDrine sulfate 50 MG/ML AMP ONE (13:58)
[2024-02-15] MEDS ORDERED: ATROPINE SULFATE 0.1 MG/ML 10ML SYR IV PRN (13:59)
[2024-02-15] MEDS ORDERED: PROMETHAZINE HCL 6.25 MG in SODIUM CHLORIDE 0.9% 50 ML IV PRN (13:59)
[2024-02-15] MEDS ORDERED: fentaNYL citrate PF 100 MCG/2 ML VIAL IV PRN (13:59)
[2024-02-15] MEDS ORDERED: ePHEDrine sulfate 50 MG/ML AMP IV PRN (13:59)
[2024-02-15] MEDS ORDERED: ONDANSETRON INJ 2 MG/ML 2 ML VIAL IV PRN (13:59)
[2024-02-15] MEDS ORDERED: ONDANSETRON INJ 2 MG/ML 2 ML VIAL ONE (14:01)
[2024-02-15] MEDS ORDERED: ROCURONIUM BROMIDE 10 MG/ML 5 ML VIAL IV ONE ×3 (14:03→16:19)
[2024-02-15] MEDS ORDERED: MIDAZOLAM HCL 1 MG/ML 2ML VIAL ONE (14:08)
[2024-02-15] MEDS ORDERED: fentaNYL citrate PF 100 MCG/2 ML VIAL ONE (14:08)
[2024-02-15] MEDS ORDERED: DEXAMETHASONE SOD INJ 4 MG/ML VIAL ONE (14:10)
--- NOTE | 2024-02-15 15:24 | Anesthesiology Consultation ---
Date of Service February 15, 2024 Assessment & Plan Chart Review Chart Review: Acceptable Risk for Surgery and Patient NOT seen in Pre Admission Testing Consults Requested none ASA ASA3 Proposed Anesthesia Anesthesia Type: General Risk / Benefits Reviewed With: PT / POA / Parent / Guardian, Accepts Plan and Informed Consent Obtained History Surgery Operation Date: 02/15/24 09:20 Proposed Procedures p Robotic Left Inguinal Hernia Repair with Mesh - Nieves Espinal, Height/Weight Height: 5 ft 11 in Weight: 86 kg Allergies Allergy/AdvReac Type Severity Reaction Status Date / Time ragweed pollen Allergy Intermediate Sneezing Verified 09/06/23 16:01 animal dander Allergy Mild itchy Verified 09/06/23 16:01 house dust Allergy Mild Sneezing Verified 09/06/23 16:01 morphine Allergy Mild ITCHING, Verified 09/06/23 16:01 severe N/V pollen extracts Allergy Mild Sneezing Verified 09/06/23 16:01 losartan AdvReac hyperkalemi Verified 09/06/23 16:01 a Medications Home Medications Medication Instructions Recorded Confirmed Last Taken allopurinol 100 mg tablet 100 mg PO BID 02/12/24 02/12/24 Unknown amoxicillin 500 mg capsule 2,000 mg PO UD 02/12/24 02/12/24 Unknown apixaban 2.5 mg tablet (Eliquis) 2.5 mg PO BID 02/12/24 02/12/24 Unknown aspirin 81 mg tablet,delayed 81 mg PO DAILY 02/12/24 02/12/24 Unknown release atorvastatin 20 mg tablet 20 mg PO DAILY 02/12/24 02/12/24 Unknown carvedilol 12.5 mg tablet 12.5 mg PO BID 02/12/24 02/12/24 Unknown levothyroxine 150 mcg tablet 150 mcg PO DAILY 02/12/24 02/12/24 Unknown omeprazole 40 mg capsule,delayed 40 mg PO DAILY 02/12/24 02/12/24 Unknown release Active Medications Generic Name Dose Route Start Last Admin Trade Name Freq PRN Reason Stop Dose Admin Allopurinol 100 mg 02/13/24 09:00 02/14/24 19:30 Allopurinol 100 Mg Tab PO 03/14/24 08:59 100 mg BID MIRIAM Administration Aspirin 81 mg 02/13/24 09:00 02/15/24 09:02 Aspirin 81 Mg Ectab PO 03/14/24 08:59 Not Given DAILY MIRIAM Atorvastatin Calcium 20 mg 02/13/24 09:00 02/14/24 08:05 Atorvastatin 20 Mg Tab PO 03/14/24 08:59 20 mg DAILY MIRIAM Administration Carvedilol 12.5 mg 02/13/24 09:00 02/14/24 19:30 Carvedilol 12.5 Mg Tab PO 03/14/24 08:59 12.5 mg BID MIRIAM Administration Ceftriaxone Sodium 2,000 mg in 50 mls @ 100 mls/hr 02/13/24 18:00 02/14/24 18:39 Rocephin IV 02/23/24 17:59 Infused Q24H MIRIAM Infusion Levothyroxine Sodium 150 mcg 02/13/24 06:30 02/15/24 06:26 Levothyroxine Sodium 150 Mcg Tablet PO 03/14/24 06:29 150 mcg DAILYBB MIRIAM Administration Magnesium Oxide 400 mg 02/14/24 21:00 02/15/24 09:07 Magnesium Oxide 400 Mg Tab PO 03/15/24 20:59 400 mg BID MIRIAM Administration Ondansetron HCl 4 mg 02/13/24 10:49 02/13/24 11:13 Ondansetron Inj 2 Mg/Ml 2 Ml Vial IV 03/14/24 10:48 4 mg Q6H PRN Administration Nausea And Vomiting Pantoprazole Sodium 40 mg 02/13/24 09:00 02/14/24 08:05 Pantoprazole 40 Mg Tab PO 03/14/24 08:59 40 mg DAILY MIRIAM Administration NPO Date Last Intake of Fluids: 02/14/24 Time Last Intake of Fluids: 19:30 Last Intake of Fluids Comment: sip of water 0907 w/med Date Last Intake of Solids: 02/14/24 Time Last Intake of Solids: 19:30 Past Medical History Medical History Abdominal aortic ectasia Per aortic duplex 10/10/19= There is evidence of a 3.5 cm x 3.5 cm abdominal aortic aneurysm. Color Doppler imaging demonstrates flow consistent with a patent lumen at and distal to the aortic aneurysm. Esophageal cancer Around 2006 or 2008- s/p esophagectomy- no chemo or XRT Hx of myocardial infarction 2007 BPH (benign prostatic hyperplasia) GERD (gastroesophageal reflux disease) Well controlled and stable Hearing deficit Sleep apnea can no longer tolerate device Exercise / Class Metabolic Activity II 4-5 Yardwork/Stairs/Walk up hill Past Family History Family History Father Family history of diabetes mellitus Other No family history of adverse response to anesthesia Past Surgical History Surgical History History of cardiac cath X 1 SINCE 2007-NO STENTS PLACED-F/U DR JOSE LUIS BENITEZ last visit 03/2022 History of left cataract extraction 10/22/2019 History of right cataract surgery 10/08/2019. 2mg versed. History of colonoscopy History of esophagogastroduodenoscopy (EGD) Hx of heart bypass surgery 4 - 2007- done in [place], [place] Hx of transurethral resection of prostate x3 History of appendectomy Hx of esophagectomy d/t esophageal cancer (~2006) Past Anesthesia History No Hx of Anesthesia Complications and No Family Hx of Anesthesia Complications History of PONV No Hx of PONV and No Hx of Motion Sickness Social History Smoking Status: Former smoker tobacco type: cigarettes Smoking cigarettes per day: QUIT ~40 YRS AGO Do You Dip or Chew Tobacco: No Smoking End Date: 35 years ago Hx Alcohol Use: Yes Alcohol type: wine alcohol intake frequency: a few times a week Hx Substance Use: No substance use type: does not use Physical Exam Vital Signs Last Vital Signs Temp 36.7 C 02/15/24 13:58 Pulse 62 02/15/24 13:58 Resp 18 02/15/24 13:58 BP 141/81 H 02/15/24 13:58 Pulse Ox 95 02/15/24 13:58 O2 Del Method Room Air 02/15/24 13:58 ENMT Mouth: no dentition abnormality Thyromental Distance: > or= 3.5 Finger Breadths Mallampati Class: II Neck normal visual inspection Respiratory normal respiratory effort Auscultation: lungs clear to auscultation bilaterally Cardiovascular Rate/Rhythm: regular rate and regular rhythm Psychiatric Orientation: alert Testing Laboratory Results 02/14/24 07:10 02/15/24 07:02 PT 11.3 Seconds (9.0-12.0) 02/13/24 11:38 INR 1.0 (0.9-1.1) 02/13/24 11:38 APTT 27 Seconds (21-31) 02/13/24 11:38 Hemoglobin A1c 6.1 % (4.5-5.6) H 02/13/24 06:23 Urine Color Yellow 02/12/24 16:47 Urine Appearance Cloudy (Clear) A 02/12/24 16:47 Urine pH 6.5 (4.5-7.5) 02/12/24 16:47 Ur Specific [place] 1.014 (1.000-1.030) 02/12/24 16:47 Urine Protein 1+ (Negative) H 02/12/24 16:47 Urine Glucose (UA) Negative (Negative) 02/12/24 16:47 Urine Ketones Negative (Negative) 02/12/24 16:47 Urine Nitrite Negative (Negative) 02/12/24 16:47 Ur Leukocyte Esterase 3+ (Negative) H 02/12/24 16:47 Urine WBC (Auto) >50 /hpf (0-5) H 02/12/24 16:47 Urine RBC (Auto) 3-5 /hpf (0-2) H 02/12/24 16:47 U Hyaline Cast (Auto) 0-2 /lpf (0-2) 02/12/24 16:47 U Epithel Cells (Auto) 0-2 /hpf (0-2) 02/12/24 16:47 Urine Bacteria (Auto) 4+ (None Seen) H 02/12/24 16:47 02/12/24 16:47 Urine Culture - Final Urine,Clean Catch Escherichia coli
[2024-02-15] MEDS ORDERED: SUGAMMADEX SODIUM 200 MG/2 ML VIAL IV ONE (16:23)
[2024-02-15] MEDS: BUPIVACAINE 0.5 % 5 MG/1 ML MPF 30ML VIAL ONE (16:25)
[2024-02-15] MEDS ORDERED: KETOROLAC 30 MG/ML VIAL ONE (16:28)
--- NOTE | 2024-02-15 16:52 | Operative Report ---
PG Post Operative Report Pre & Post Diagnosis Operation Date: 02/15/24 09:20 Pre-Op Diagnosis: Left inguinal hernia Post-Op Diagnosis: Left inguinal hernia I identified the patient and participated in the time-out.: Yes Procedure Operation Date: 02/15/24 09:20 Actual Procedures p Robotic Left Inguinal Hernia Repair with Mesh(Left) - Nieves Espinal DO Surgeon Nieves Espinal DO [employer] TY Aguiar Estimated Blood Loss 5 Findings See Below Large RIH Specimens None Anesthesia Type General Complications None Indications Symptomatic RIH with episodes of N/V Description of Procedure The patient was brought back to the operating room with Chambers catheter from the floor and placed on the operating room table in supine position. He was connected to cardiac and oxygen monitoring, supplemental O2 was provided and SCDs were applied to bilateral lower extremities. The patient was administered general anesthesia and a secure airway was established. The abdomen was prepped and draped in typical sterile fashion and a timeout was conducted. Local anesthetic was used anesthetize the skin and subcutaneous tissue prior to making all 3 incisions. Incisions were made with an 11 blade. At just lateral and superior to the umbilicus, a Veress needle was used to access the intraperitoneal space confirmed with a saline drop test. CO2 insufflation was initiated to a goal pressure 15 mmHg. Once this pressure was reached, a 5 mm laparoscope was inserted using direct visualization with a 5 mm Optiview obturator and 5 mm laparoscope and an 8 mm robotic trocar. Just above the entry site there were adhesions from a previous epigastric hernia repair. Additional trocars were inserted at the left upper and right upper quadrants using direct visualization angled towards the targeted left groin. The OR table was positioned in Trendelenburg position. The robot was deployed and docked and instruments were inserted. At the console a very large left inguinal hernia was identified. A majority of the hernia had been reduced. The left preperitoneal space was entered and the peritoneum was dissected away from transversalis fascia within the hernia including additional large amounts of lipoma. The spermatic cord and vas deferens were identified. Hernia sac was very thickened and intertwined the cord structures. The hernia sac was heavily involved with the hernia along the entire internal ring so tedious dissection was undertaken to completely peel back the peritoneum from this area. Once the peritoneum had been completely dissected leaving good space for mesh, a 10 x 15 cm ProGrip mesh was inserted over the left Daniel pectineal orifice. The mesh extended inferiorly below the pubic bone. Because the hernia was so large, the mesh had to be shifted superiorly to cover the entire internal ring opening. The mesh was anchored with 2-0 Vicryl suture superiorly to decrease the risk of mesh slippage and hernia recurrence. The mesh was also anchored medially at Hood's ligament. The access point into the peritoneum was then closed using a V-Loc suture. There were no openings in the peritoneum and the mesh was completely protected from intra-abdominal contents. The instruments were removed. CO2 insufflation was discontinued and excess pneumoperitoneum was evacuated. The patient tolerated procedure well. The OR table was returned to the neutral position. General anesthesia was discontinued, the secure airway was removed and the patient was transferred to recovery in stable condition. I attest to the content of the Intraoperative Record and any orders documented therein. Any exceptions are noted below.
--- NOTE | 2024-02-15 17:10 | Anesthesiology Progress Note ---
Date of Service February 15, 2024 Anesthesia Post Procedure Vital Signs Vital Signs: Temp Pulse Pulse Resp BP BP Pulse Ox 02/15/24 17:00 59 L 12 140/87 94 02/15/24 16:50 61 17 151/84 H 98 02/15/24 16:40 36.1 C L 63 18 162/91 H 97 02/15/24 13:58 36.7 C 62 18 141/81 H 95 02/15/24 13:01 60 02/15/24 10:55 36.5 C 62 19 148/85 H 94 02/15/24 07:30 61 02/15/24 07:00 36.9 C 58 L 19 136/79 93 02/15/24 03:59 36.6 C 61 16 105/66 90 02/14/24 23:00 02/14/24 22:08 36.5 C 62 16 127/78 92 02/14/24 21:56 63 02/14/24 19:11 36.6 C 66 17 126/72 94 Pulse Ox O2 Del Method O2 Del Method O2 Flow Rate 02/15/24 17:00 Room Air 02/15/24 16:50 Oxymask 5 02/15/24 16:40 Oxymask 5 02/15/24 13:58 Room Air 02/15/24 13:01 02/15/24 10:55 Room Air 02/15/24 07:30 02/15/24 07:00 Room Air 02/15/24 03:59 Room Air 02/14/24 23:00 92 Room Air 02/14/24 22:08 Room Air 02/14/24 21:56 02/14/24 19:11 Room Air Transfer of Care Handoff Completed per policy Notes Mental Status: alert / awake / arousable Patient Amnestic to Procedure: Yes Nausea / Vomiting: adequately controlled Pain: adequately controlled Airway Patency, RR, SpO2: stable & adequate BP & HR: stable & adequate Hydration State: stable & adequate Anesthetic Complications: no major complications apparent
[2024-02-16] MEDS: LACTATED RINGER'S 500 ML IV ONE (03:24)
[2024-02-16 04:03] VITALS: TEMP 97.5
[2024-02-16 06:30] LABS: ANTI-Xa, UFH(UnfractionatedHep < 0.10 IU/ml (0.3-0.7)
[2024-02-16] MEDS ORDERED: traMADol HCL 50 MG TABLET PO PRN (07:14)
[2024-02-16 08:00] VITALS: PULSE 61; RESP 18; O2SAT 94
[2024-02-16 08:19] LABS: Hematocrit (blood only) 39.6 % (42.0-52.0); Hemoglobin 14.1 g/dl (14.0-18.0); Mean Corpuscular Hemoglobin 34.6 pg (25.0-34.0); Mean Corpuscular Hgb Conc 35.6 g/dL (32.0-36.0); Mean Corpuscular Volume 97.1 fL (80.0-100.0); Mean Platelet Volume 11.9 fL (9.4-12.4); Platelet Count 176 K/uL (130-400); RDW Coefficient of Variation 13.3 % (11.5-14.5); RDW Standard Deviation 47.7 fL (36.4-46.3); Red Blood Count 4.08 M/uL (4.70-6.10); White Blood Count 9.53 K/ul (4.8-10.8)
--- NOTE | 2024-02-16 08:21 | Surgery Progress Note ---
Date of Service February 16, 2024 Assessment & Plan (1) Left inguinal hernia: Plan: POD 1 s/p robotic repair of a large LIH with mesh. He is doing well. Afebrile, VSS, labs pending, pain well controlled and he is tolerating a solid diet. OOB with assistance. PT for evaluation and discharge today if medically appropriate. Continue to hold Heparin today and may resume tomorrow if patient is still admitted past today. Otherwise, resume Eliquis Monday. Follow up with me in the office in 2 weeks. Admission and Anticipated Discharge Date Admission Date: February 12, 2024 Subjective I have seen and examined Mr. Morales this am. He feels well, without complaints. Denies N/V. Occasional discomfort at his LLQ when he moves. Physical Exam Constitutional: average body habitus; not ill appearing, not in distress and not diaphoretic Gastrointestinal (Abdomen): Robotic incisions are sealed with dermabond, intact There is no evidence for swelling or bruising at incisions or groin Results & Data Vital Signs (Past 12 Hours) Vital Signs Temp Pulse Pulse Resp BP Pulse Ox O2 Del Method 02/16/24 07:59 36.4 C L 61 18 108/67 94 Room Air 02/16/24 07:35 Room Air 02/16/24 07:00 63 02/16/24 04:02 36.4 C L 64 20 102/58 L 92 Room Air 02/16/24 00:00 37.2 C 68 20 96/56 L 92 Room Air 02/15/24 21:40 81 02/15/24 21:20 Room Air PG Care Time/CCT Total # of Minutes Spent Total Time Spent with Patient: Total time spent is greater than 50% in coordination of care (as documented) at patient's floor/unit and/or counseling patient: Coding Level of Care Code 80751 Post Operative Follow-Up Diagnoses Left inguinal hernia K40.90
[2024-02-16 08:34] LABS: BUN Creatinine Ratio 22.7 (10-20); Calcium 9.3 mg/dl (8.6-10.3); Creatinine Clr Calc Pharmacy 39.4 ml/min; Potassium 4.8 mmol/L (3.5-5.1)
[2024-02-16] MEDS: POLYETHYLENE (MIRALAX) 17 GM PACK PO PRN (09:11)
--- NOTE | 2024-02-16 09:11 | Cardiology Progress Note ---
Date of Service February 16, 2024 Assessment & Plan (1) Preoperative cardiovascular examination: (2) Left inguinal hernia: (3) Acute UTI (urinary tract infection): Plan: * Patient describes stable cardiac signs and symptoms.Status post robotic assisted left middle hernia repair 02/15/2024. Started the procedure well from cardiac perspective. * Repeat echocardiogram performed 02/13/24 revealed stable findings with normal LVEF, normal prosthetic AV function. * Denies any recent symptoms suggestive of angina, unstable arrhythmia, or congestive heart failure. * Patient's urine culture yielded E. coli on 02/12/2024. Currently on IV Rocephin.He is likely to be transition to oral antibiotics after today. * Patient is on Eliquis due to his history of paroxysmal atrial fibrillation. He remains in sinus rhythm. Heparin bridge had been utilized preoperatively, stopped 12 hours before surgery. I agree with plans to resume Eliquis on 02/19/24. * Case discussed with Dr Tate. Admission and Anticipated Discharge Date Admission Date: February 12, 2024 Subjective Patient seen in cardiology follow-up. Postop robotic assisted left inguinal hernia repair on 02/15/2024. Feeling well. Tolerating regular diet. Denies chest pain or shortness of breath. Telemetry reveals sinus rhythm in the 60s. Physical Exam Physical Exam: General: no acute distress and stated age Eyes: conjunctiva are pink and non-injected, sclera clear Neck: normal jugular venous pulse, no hepatojugular reflux Chest: normal shape and normal respiratory effort -Midline sternotomy incision well-healed , stable sternum. Lungs: clear to auscultation and percussion Cardiac Exam: - regular heart sounds, no murmurs, rubs, or gallops, no jugular venous distention Abdomen: abdomen soft, non-tender, no abnormal masses and no hepatosplenomegaly Musculoskeletal: no gait disturbance, no weakness Extremities: no edema and no cyanosis Neuro:awake, conversant, follows commands, no focal motor deficits Psych: appropriate affect and insight. Constitutional: WD/WN, vitals as above Respiratory: normal respiratory effort, lungs clear to auscultation Cardiovascular: RRR, no murmur, no edema Gastrointestinal (Abdomen): normal bowel sounds, soft, nontender, no hepatosplenomegaly Neurologic: PERRL, EOMI, accommodation nl, no face palsy, no dysarthria Results & Data Vital Signs (Past 12 Hours) Vital Signs Temp Pulse Pulse Resp BP Pulse Ox O2 Del Method 02/16/24 07:59 36.4 C L 61 18 108/67 94 Room Air 02/16/24 07:35 Room Air 02/16/24 07:00 63 02/16/24 04:02 36.4 C L 64 20 102/58 L 92 Room Air 02/16/24 00:00 37.2 C 68 20 96/56 L 92 Room Air 02/15/24 21:40 81 02/15/24 21:20 Room Air Laboratory Results CBC 02/16/24 Range/Units 07:57 WBC 9.53 (4.8-10.8) K/ul RBC 4.08 L (4.70-6.10) M/uL Hgb 14.1 (14.0-18.0) g/dl Hct 39.6 L (42.0-52.0) % Plt Count 176 (130-400) K/uL Comprehensive Metabolic Panel 02/16/24 Range/Units 07:57 Sodium 137 (136-145) mmol/L Potassium 4.8 (3.5-5.1) mmol/L Chloride 103 (98-107) mmol/L Carbon Dioxide 26 (21-32) mmol/L BUN 35 H (6-23) mg/dl Creatinine 1.54 H (0.6-1.4) mg/dl Glucose 125 H (70-99(Fasting)) mg/dl Calcium 9.3 (8.6-10.3) mg/dl Intake and Output 02/15/24 02/16/24 02/16/24 22:59 06:59 14:59 Intake Total 1200 / 1700 500 / 1700 120 / 120 Output Total 280 / 1330 250 / 1330 0 / 0 Balance 920 / 370 250 / 370 120 / 120 Intake: IV 50 / 550 500 / 550 Lactated Ringer's 500 ml @ 999 500 / 500 mls/hr IV .Q31M ONE Rx#: [id number] cefTRIAXone SODIUM 2,000 mg In 50 / 50 50 ml @ 100 mls/hr IV Q24H [facility] Rx#:[id number] IV Perioperative 800 / 800 Oral 350 / 350 120 / 120 Output: Estimated Blood Loss 5 / 5 Urine Amount (Catheter) 275 / 1325 250 / 1325 Chambers/Indwelling 275 / 1325 250 / 1325 # Bowel Movements 0 / 0 Other: Weight 86 kg 87.7 kg Weight Measurement Method Built in [facility]
--- NOTE | 2024-02-16 10:09 | Discharge Summary ---
Discharge Summary Date of Service February 16, 2024 Principal Dx & Hospital Course #1 = Principal Diagnosis (1) Left inguinal hernia: (2) Acute UTI (urinary tract infection): Due to intermittent straight cath (3) CKD (chronic kidney disease), stage III: (4) CAD (coronary artery disease): (5) Hypothyroidism: (6) Paroxysmal atrial fibrillation: Plan Patient presented to the emergency room with his symptomatic left inguinal hernia. Patient had been dealing with this for quite some time. Got to the point where anytime he stands up and tries to walk he would become severely painful. In the emergency room attempted reduction. And laying down he was comfortable. Due to the fact that he was unable to really get himself around to be comfortable and concern for incarceration was referred to us for admission. Patient was admitted to the hospital. And surgical consultation was obtained. Patient was also diagnosed with a urinary tract infection. He does intermittent straight cath. He was treated with Rocephin here in the hospital and completed a full course of antibiotics while in the hospital. Surgery evaluated patient and determined that he met criteria for a more immediate repair of his inguinal hernia while here in the hospital. Patient has extensive cardiac history and is on chronic anticoagulation for paroxysmal atrial fibrillation. His Eliquis was held and he was placed on IV heparin for bridging. Cardiology consultation was obtained for preoperative clearance. He was evaluated by cardiology. He did not need any preoperative testing when he was medically maximized. The patient was then scheduled for surgical intervention on February 15, 2024. Patient underwent inguinal hernia repair. His post operative course was uneventful. On the day of discharge his laboratory studies are stable. His vital signs are stable. His incisional wounds were glued together and were clean and dry with no evidence of infection. Patient was given extensive instructions by the s urgical team. He will continue his usual cardiac medications. He was given instructions to resume his Eliquis on February 19, 2024 and he will be discharged outpatient follow-up with his surgeon PCP and cardiology. Notes For Next Care Provider Activity restrictions as per surgery Follow-up with cardiology per routine Medication Changes From Visit No change Admission HPI Per Admitting Provider 83-year-old male with past medical history significant for dyslipidemia, prediabetes, hypothyroidism, mild obstructive sleep apnea, solitary lung nodule, history of CAD status post CABG, aortic root enlargement, bioprosthetic aortic valve replacement, paroxysmal atrial fibrillation, hypertension, asymptomatic bilateral carotid artery stenosis, infrarenal abdominal aortic aneurysm, history of cardiomyopathy, Hastings's esophagus with high-grade dysplasia ,BPH, neurogenic bladder, CKD stage III, gout arthropathy, sensorineural hearing loss of both ears, adverse reaction to angiotensin II receptor presents with left abdominal pain and left inguinal hernia. Patient says had left inguinal hernia about softball size. Today it was hurting a lot which prompted him to come to ER. Denies any nausea or vomiting. Bowel movements are okay. No fevers. ER and surgery tried to reduce it. Patient states with lying down is okay but when he tried to get up and walk it is popping out. Denies any chest pain or shortness of breath. No headache. No runny nose or sore throat. Vision is okay. No cough. Appetite is okay. Ambulating okay. Hemodynamics are okay. Patient also found to have UTI. Past medical history. As mentioned above Past surgical history. CABG. Carpal tunnel surgery. Colonoscopy. EGD. EGD with biopsy. Abdominal hernia repair with mesh. Sacral implant neuro electrodes. Esophagectomy 6 inches of esophagus removed in 2005. TURP. Bilateral cataracts. Social history. . Quit smoking 1982. Smoked 1 pack a day for 20 years. No alcohol use. No drug use. Family history. Maternal grandfather had cancer of liver. Father had diabetes. Hemochromatosis. Stroke. Mother had stroke. Admission Exam Per Admitting Provider See H&P Discharge Exam Constitutional: Alert, nontoxic, no acute distress HEENT: Mucous membranes moist. Lungs: Clear to auscultation, decreased, no wheezes rales or rhonchi CV: S1-S2, regular, systolic murmur Abdomen: Soft, nontender, nondistended, incisions clean and dry, no redness Extremities: No significant edema Neuro: No focal deficits Psych: Cooperative, normal mood Updated Medication List Medication Instructions Recorded Confirmed Type allopurinol 100 mg tablet 100 mg PO BID 02/12/24 02/12/24 History amoxicillin 500 mg capsule 2,000 mg PO UD 02/12/24 02/12/24 History apixaban 2.5 mg tablet (Eliquis) 2.5 mg PO BID 02/12/24 02/12/24 History aspirin 81 mg tablet,delayed 81 mg PO DAILY 02/12/24 02/12/24 History release atorvastatin 20 mg tablet 20 mg PO DAILY 02/12/24 02/12/24 History carvedilol 12.5 mg tablet 12.5 mg PO BID 02/12/24 02/12/24 History levothyroxine 150 mcg tablet 150 mcg PO DAILY 02/12/24 02/12/24 History omeprazole 40 mg capsule,delayed 40 mg PO DAILY 02/12/24 02/12/24 History release Hospital Stay Data Consultations 02/12/24 20:12 ED Decision to Admit Stat 02/12/24 23:28 Consult General Surgery Routine 02/13/24 11:48 Consult Cardiology Routine Procedures Performed Operation Date: 02/15/24 09:20 Actual Procedures p Robotic Left Inguinal Hernia Repair with Mesh(Left) - Nieves Anders DO Diagnostic Imagining Performed 02/12/24 14:27 CT abd pelvis IV con only Stat Reviewed imaging, laboratory and diagnostic studies. Pertinent findings as below. WBCs 9.5 Hemoglobin 14.1 Platelets 176 Electrolytes within normal ranges Creatinine 1.54, baseline I refer you to the operative report for details of inguinal hernia repair Pending Results Patient Have Any Pending Studies at Discharge: No Discharge Instructions Given to Patient (Per Discharging Provider) You have surgical glue called dermabond on your surgical site incisions. You may shower with this on. This will tend to come off within a couple of weeks. Do not pick at it. You may apply ice over your incision area, 20 minutes on , 20 minutes over the next week for comfort. From a surgical standpoint please hold your Eliquis until Monday02/19/24 SPECIAL CARE INSTRUCTIONS: * No lifting greater than 10lbs. No exercise until cleared by surgeon. Light walking is accepted. * No driving while taking narcotic pain medication * No drinking alcohol while taking narcotic pain medication * May use Tylenol over the counter for pain as tolerated. Do not exceed 3grams of Tylenol per 24 hours * Expect some swelling and bruising. Call your doctor if: * Temperature above 101 degrees, nausea/vomiting, fever/chills * Pain not relieved by pain medicine ordered * There is increased drainage or redness from any incision * You have any unanswered questions or concerns [phone]. FOLLOW UP VISIT: If not already scheduled, please call the office for a follow-up visit. Office Total Time Total Time Spent Total Time Spent (In Minutes): 33
[2024-02-16 10:29] VITALS: BP 148/81
== END 2024-02-16 13:01 | disposition home or self-care (01) | DRG 351 ==
LOC: ED 14:20 → 2S 22:16 → SUATTDRO 22:16 → 2S 22:56 → 2N 02-15 17:39